=== PATIENT | female | born 1955 | race Caucasian/White ===

== ENCOUNTER 2018-01-27 15:11 | Outpatient (REF) | payer MEDICAID, SELFPAY ==
[2018-01-27 22:37] LABS: ALT 37 U/L (12-78); AST 35 U/L (15-37); Albumin 3.6 g/dL (3.4-5.0); Alkaline Phosphatase 201 U/L (46-116); Anion Gap 9.8 mmol/L (3-11); BUN 43 mg/dL (7-18); Bilirubin, Total 0.3 mg/dL (0.2-1.0); CO2 31.2 mmol/L (21.0-32.0); CREATININE 1.83 mg/dL (0.55-1.02); Calcium 9.2 mg/dL (8.5-10.1); Chloride 100 mmol/L (98-107); Cholesterol 187 mg/dL (50-200); Estimated GFR 28.06 (mL/min/1.73m2); Glucose 85 mg/dL (70-100); HDL Cholesterol 58 mg/dL (40-60); LDL CHOLESTEROL 89 mg/dL (<100); Potassium 3.1 mmol/L (3.5-5.1); Sodium 141 mmol/L (136-145); Total Protein 7.7 g/dL (6.4-8.2); Triglyceride 243 mg/dL (30-150)
== END 2018-01-27 15:31 ==
LOC: NCHCN 15:11
PROVIDERS: PCP Registered Nurse; Visit Provider Registered Nurse
DX: Z13.220 Encounter for screening for lipoid disorders (principal); Z13.228 Encounter for screening for other metabolic disorders; Z51.81 Encounter for therapeutic drug level monitoring; Z79.899 Other long term (current) drug therapy
CPT/HCPCS: 80053; 80061; 83721

== ENCOUNTER 2018-02-10 12:14 | Outpatient (REF) | payer MEDICAID, SELFPAY ==
[2018-02-10 21:48] LABS: BUN 17 mg/dL (7-18); CREATININE 1.54 mg/dL (0.55-1.02); Calcium 8.5 mg/dL (8.5-10.1); Chloride 97 mmol/L (98-107); Estimated GFR 34.25 (mL/min/1.73m2); Glucose 81 mg/dL (70-100); Magnesium 1.6 mg/dL (1.8-2.4); Potassium 3.7 mmol/L (3.5-5.1); Sodium 137 mmol/L (136-145)
== END 2018-02-10 12:34 ==
LOC: NCHCN 12:14
PROVIDERS: PCP Registered Nurse; Visit Provider Registered Nurse
DX: E87.6 Hypokalemia (principal); N18.3 Chronic kidney disease, stage 3 (moderate); K50.90 Crohn's disease, unspecified, without complications
CPT/HCPCS: 80048; 83735

== ENCOUNTER 2018-03-12 15:59 | Outpatient (REF) | payer MEDICAID, SELFPAY ==
[2018-03-12 21:58] LABS: BUN 33 mg/dL (7-18); CREATININE 3.05 mg/dL (0.55-1.02); Calcium 9.3 mg/dL (8.5-10.1); Chloride 98 mmol/L (98-107); Estimated GFR 15.56 (mL/min/1.73m2); Glucose 95 mg/dL (70-100); Magnesium 1.7 mg/dL (1.8-2.4); Potassium 3.6 mmol/L (3.5-5.1); Sodium 139 mmol/L (136-145)
== END 2018-03-12 16:19 ==
LOC: NCHCN 15:59
PROVIDERS: PCP Registered Nurse; Visit Provider Registered Nurse
DX: N18.3 Chronic kidney disease, stage 3 (moderate) (principal); E83.42 Hypomagnesemia; R30.0 Dysuria; R31.9 Hematuria, unspecified
CPT/HCPCS: 80048; 83735; 87086

== ENCOUNTER 2018-03-19 17:59 | Outpatient (REF) | payer MEDICAID, SELFPAY ==
[2018-03-19 20:37] LABS: Abs Immature Grans 0.01 k/cumm (0.0-0.09); Absolute Basophil Count 0.01 k/cumm (0.0-0.2); Absolute Eosinophil Count 0.21 k/cumm (0.0-0.7); Absolute Lymphocyte Count 1.83 k/cumm (1.2-3.4); Absolute Monocyte Count 0.54 k/cumm (0.11-0.7); Absolute Neutrophil Count 2.89 k/cumm (1.2-6.7); Basophils % 0.2; Eosinophils % 3.8; HCT 35.9 % (36.0-46.0); HGB 11.8 g/dL (12.0-15.5); Immature Grans % 0.2; Lymphocytes % 33.3; Mean Corp. HGB Concentration 32.9 g/dL (32.0-36.0); Mean Corpuscular Hemoglobin 33.1 pg (27.0-33.0); Mean Corpuscular Volume 100.6 fL (80-95); Mean Platelet Volume 9.8 fL (8.0-11.0); Monocytes % 9.8; Neutrophils % 52.7; Platelet Count 274 x1000/uL (130-400); RBC 3.57 m/cumm (4.00-5.20); RBC Distribution Width 13.1 % (11.7-14.6); White Blood Cell Count 5.49 k/cumm (4.4-10.8)
[2018-03-19 20:46] LABS: Anion Gap 7.2 mmol/L (3-11); BUN 39 mg/dL (7-18); CO2 33.8 mmol/L (21.0-32.0); Calcium 8.8 mg/dL (8.5-10.1); Chloride 98 mmol/L (98-107); Glucose 93 mg/dL (70-100); Potassium 3.9 mmol/L (3.5-5.1); Sodium 139 mmol/L (136-145)
== END 2018-03-19 18:19 ==
LOC: NCHCN 17:59
PROVIDERS: PCP Registered Nurse; Visit Provider Registered Nurse
DX: N18.3 Chronic kidney disease, stage 3 (moderate) (principal)
CPT/HCPCS: 80048; 85025

== ENCOUNTER 2018-08-18 08:08 | Outpatient (REF) | payer MEDICAID, SELFPAY ==
[2018-08-18 22:15] LABS: HCT 41.3 % (36.0-46.0); HGB 13.2 g/dL (12.0-15.5); Mean Corpuscular Hemoglobin 32.5 pg (27.0-33.0); Mean Corpuscular Volume 101.7 fL (80-95); Platelet Count 429 x1000/uL (130-400); RBC 4.06 m/cumm (4.00-5.20); RBC Distribution Width 13.7 % (11.7-14.6); White Blood Cell Count 6.95 k/cumm (4.4-10.8)
[2018-08-18 22:29] LABS: Iron 34 ug/dL (50-175); Total Iron Binding Capacity 412 ug/dL (250-450); Transferrin Sat 8 % (15-50)
[2018-08-18 22:56] LABS: ALT 57 U/L (12-78); AST 65 U/L (15-37); Albumin 3.5 g/dL (3.4-5.0); Alkaline Phosphatase 340 U/L (46-116); Anion Gap 11.2 mmol/L (3-11); BUN 20 mg/dL (7-18); Bilirubin, Total 0.2 mg/dL (0.2-1.0); CO2 25.8 mmol/L (21.0-32.0); CREATININE 1.39 mg/dL (0.55-1.02); Chloride 99 mmol/L (98-107); Estimated GFR 38.55 (mL/min/1.73m2); Glucose 81 mg/dL (70-100); Magnesium 1.6 mg/dL (1.8-2.4); Potassium 4.1 mmol/L (3.5-5.1); Sodium 136 mmol/L (136-145); TSH 1.86 uIU/mL (0.358-3.74); Total Protein 8.1 g/dL (6.4-8.2)
[2018-08-18 23:07] LABS: Calcium 8.9 mg/dL (8.5-10.1)
[2018-08-18 23:14] LABS: Vitamin B12 > 2000 pg/mL (193-986)
[2018-08-19 06:25] LABS: Vitamin D 25 Total 8.8 ng/ml (30-100)
== END 2018-08-18 08:28 ==
LOC: NCHCN 08:08
PROVIDERS: PCP Registered Nurse; Visit Provider Family Medicine
DX: D51.9 Vitamin B12 deficiency anemia, unspecified (principal); N18.4 Chronic kidney disease, stage 4 (severe); K50.90 Crohn's disease, unspecified, without complications; Z93.2 Ileostomy status
CPT/HCPCS: 80053; 82306; 85027; 82607; 83540; 83550; 83735; 84443

== ENCOUNTER 2018-08-23 22:23 | Outpatient (REF) | payer MEDICAID, SELFPAY ==
[2018-08-23 21:57] LABS: Bilirubin Small (Negative); Blood Large (Negative); Clarity Clear; Glucose Negative (Negative); Ketones Trace mg/dL (Negative); Leukocyte Esterase Small (Negative); Nitrite Negative (Negative); Specific Gravity 1.025 (1.005-1.025); Urobilinogen 0.2 EU/dL (Up TO 0.2)
[2018-08-23 22:11] LABS: C & S Indicated? No; Crystals Many Amorphous HPF (Negative)
== END 2018-08-23 22:43 ==
LOC: NCHCN 22:23
PROVIDERS: PCP Registered Nurse; Visit Provider Family Medicine
DX: R35.0 Frequency of micturition (principal); Z13.220 Encounter for screening for lipoid disorders
CPT/HCPCS: 81003; 81015

== ENCOUNTER 2018-09-21 17:37 | Outpatient (REF) | payer MEDICAID, SELFPAY | END 2018-09-21 17:57 | LOC: NCHCN 17:37 | PROVIDERS: PCP Registered Nurse; Visit Provider Family Medicine | DX: R35.0 Frequency of micturition (principal) | CPT/HCPCS: 87086 ==

== ENCOUNTER 2018-11-03 15:35 | Outpatient (REF) | payer MEDICAID, SELFPAY ==
[2018-11-03 21:35] LABS: Anion Gap 13.3 mmol/L (3-11); BUN 35 mg/dL (7-18); CO2 19.7 mmol/L (21.0-32.0); CREATININE 1.46 mg/dL (0.55-1.02); Calcium 9.1 mg/dL (8.5-10.1); Chloride 108 mmol/L (98-107); Glucose 84 mg/dL (70-100); Potassium 4.6 mmol/L (3.5-5.1); Sodium 141 mmol/L (136-145)
[2018-11-04 05:50] LABS: Vitamin D 25 Total 28.4 ng/ml (30-100)
== END 2018-11-03 15:55 ==
LOC: NCHCN 15:35
PROVIDERS: PCP Registered Nurse; Visit Provider Family Medicine
DX: D51.9 Vitamin B12 deficiency anemia, unspecified (principal); D75.89 Other specified diseases of blood and blood-forming organs; E55.9 Vitamin D deficiency, unspecified; N36.0 Urethral fistula; M79.7 Fibromyalgia
CPT/HCPCS: 80048; 82306

== ENCOUNTER 2019-02-03 12:14 | Outpatient (REF) | payer MEDICAID, SELFPAY ==
[2019-02-03 23:01] LABS: Anion Gap 8.4 mmol/L (3-11); BUN 20 mg/dL (7-18); CO2 34.6 mmol/L (21.0-32.0); CREATININE 1.59 mg/dL (0.55-1.02); Calcium 9.5 mg/dL (8.5-10.1); Chloride 94 mmol/L (98-107); Glucose 102 mg/dL (74-106); Potassium 3.3 mmol/L (3.5-5.1); Sodium 137 mmol/L (136-145)
== END 2019-02-03 12:34 ==
LOC: NCHCN 12:14
PROVIDERS: PCP Registered Nurse; Visit Provider Family Medicine
DX: N18.3 Chronic kidney disease, stage 3 (moderate) (principal)
CPT/HCPCS: 80048

== ENCOUNTER 2019-03-04 10:11 | Outpatient (REF) | payer MEDICAID, SELFPAY ==
[2019-03-04 20:44] LABS: Abs Immature Grans 0.01 k/cumm (0.0-0.09); Absolute Basophil Count 0.02 k/cumm (0.0-0.2); Absolute Lymphocyte Count 1.94 k/cumm (1.2-3.4); Absolute Monocyte Count 0.54 k/cumm (0.11-0.7); Absolute Neutrophil Count 2.97 k/cumm (1.2-6.7); Basophils % 0.4; Eosinophils % 3.5; HCT 38.2 % (36.0-46.0); HGB 12.1 g/dL (12.0-15.5); Immature Grans % 0.2; Lymphocytes % 34.2; Mean Corp. HGB Concentration 31.7 g/dL (32.0-36.0); Mean Corpuscular Hemoglobin 31.7 pg (27.0-33.0); Mean Platelet Volume 10.1 fL (8.0-11.0); Monocytes % 9.5; Neutrophils % 52.2; Platelet Count 387 x1000/uL (130-400); RBC 3.82 m/cumm (4.00-5.20); RBC Distribution Width 13.8 % (11.7-14.6); White Blood Cell Count 5.68 k/cumm (4.4-10.8)
[2019-03-04 21:18] LABS: Anion Gap 7.8 mmol/L (3-11); BUN 22 mg/dL (7-18); CO2 34.2 mmol/L (21.0-32.0); CREATININE 1.94 mg/dL (0.55-1.02); Calcium 9.3 mg/dL (8.5-10.1); Chloride 100 mmol/L (98-107); Estimated GFR 26.15 (mL/min/1.73m2); Glucose 126 mg/dL (74-106); Magnesium 1.8 mg/dL (1.8-2.4); Potassium 3.9 mmol/L (3.5-5.1); Sodium 142 mmol/L (136-145); Vitamin B12 1010 pg/mL (193-986)
[2019-03-04 21:21] LABS: Folate > 20.0 ng/mL (8.6-20.0)
== END 2019-03-04 10:31 ==
LOC: NCHCN 10:11
PROVIDERS: PCP Registered Nurse; Visit Provider Nurse Practitioner Family
DX: E55.9 Vitamin D deficiency, unspecified (principal); N18.4 Chronic kidney disease, stage 4 (severe); N25.89 Other disorders resulting from impaired renal tubular function; E61.2 Magnesium deficiency; D51.9 Vitamin B12 deficiency anemia, unspecified; D52.9 Folate deficiency anemia, unspecified
CPT/HCPCS: 80048; 82306; 82607; 82746; 83735; 85025

== ENCOUNTER 2019-04-13 16:49 | Outpatient (REF) | payer MEDICAID, SELFPAY ==
[2019-04-13 21:39] LABS: Anion Gap 7.7 mmol/L (3-11); BUN 23 mg/dL (7-18); CO2 28.3 mmol/L (21.0-32.0); CREATININE 1.36 mg/dL (0.55-1.02); Calcium 8.8 mg/dL (8.5-10.1); Chloride 105 mmol/L (98-107); Glucose 88 mg/dL (74-106); Potassium 4.5 mmol/L (3.5-5.1); Sodium 141 mmol/L (136-145)
[2019-04-13 21:42] LABS: HCT 37.8 % (36.0-46.0); HGB 12.2 g/dL (12.0-15.5); Mean Corp. HGB Concentration 32.3 g/dL (32.0-36.0); Mean Corpuscular Hemoglobin 32.7 pg (27.0-33.0); Mean Corpuscular Volume 101.3 fL (80-95); Mean Platelet Volume 10.1 fL (8.0-11.0); Platelet Count 315 x1000/uL (130-400); RBC 3.73 m/cumm (4.00-5.20); RBC Distribution Width 14.3 % (11.7-14.6); White Blood Cell Count 6.14 k/cumm (4.4-10.8)
== END 2019-04-13 17:09 ==
LOC: NCHCN 16:49
PROVIDERS: PCP Registered Nurse; Visit Provider Registered Nurse
DX: N18.4 Chronic kidney disease, stage 4 (severe) (principal)
CPT/HCPCS: 80048; 85027

== ENCOUNTER 2019-05-16 13:11 | Outpatient (REF) | payer MEDICAID, SELFPAY ==
[2019-05-16 21:31] LABS: BUN 31 mg/dL (7-18); CREATININE 2.02 mg/dL (0.55-1.02); Calcium 9.5 mg/dL (8.5-10.1); Chloride 104 mmol/L (98-107); Estimated GFR 24.96 (mL/min/1.73m2); Glucose 118 mg/dL (74-106); Potassium 4.9 mmol/L (3.5-5.1); Sodium 143 mmol/L (136-145)
== END 2019-05-16 13:31 ==
LOC: NCHCN 13:11
PROVIDERS: PCP Registered Nurse; Visit Provider Registered Nurse
DX: N18.3 Chronic kidney disease, stage 3 (moderate) (principal); R82.90 Unspecified abnormal findings in urine
CPT/HCPCS: 80048; 87086

== ENCOUNTER 2019-05-18 14:43 | Outpatient (REF) | payer MEDICAID, SELFPAY ==
[2019-05-18 22:26] LABS: Anion Gap 7.9 mmol/L (3-11); BUN 33 mg/dL (7-18); CO2 32.1 mmol/L (21.0-32.0); CREATININE 1.86 mg/dL (0.55-1.02); Calcium 9.4 mg/dL (8.5-10.1); Chloride 100 mmol/L (98-107); Estimated GFR 27.45 (mL/min/1.73m2); Glucose 102 mg/dL (74-106); Potassium 3.8 mmol/L (3.5-5.1); Sodium 140 mmol/L (136-145)
[2019-05-18 22:37] LABS: Bacteria Few HPF (Negative); Crystals Moderate Amorphous HPF (Negative); Epithelial Cells Moderate HPF (Negative); Other Cells Negative (Negative); RBC 0-2 HPF (0-2)
[2019-05-18 22:38] LABS: C & S Indicated? C&S Done As Ordered; Mucus Negative (Negative)
[2019-05-19 15:19] LABS: Vitamin D 25 Total 38.3 ng/ml (30-100)
== END 2019-05-18 15:03 ==
LOC: NCHCN 14:43
PROVIDERS: PCP Registered Nurse; Visit Provider Registered Nurse
DX: N18.4 Chronic kidney disease, stage 4 (severe) (principal); R82.90 Unspecified abnormal findings in urine; E55.9 Vitamin D deficiency, unspecified; R63.6 Underweight; Z91.89 Other specified personal risk factors, not elsewhere classified
CPT/HCPCS: 80048; 82306; 81015; 87086

== ENCOUNTER 2019-06-16 10:55 | Outpatient (REF) | payer MEDICAID, SELFPAY ==
[2019-06-16 20:21] LABS: BUN 22 mg/dL (7-18); CREATININE 2.07 mg/dL (0.55-1.02); Calcium 9.5 mg/dL (8.5-10.1); Chloride 98 mmol/L (98-107); Estimated GFR 24.26 (mL/min/1.73m2); Glucose 94 mg/dL (74-106); Potassium 4.2 mmol/L (3.5-5.1); Sodium 139 mmol/L (136-145)
== END 2019-06-16 11:15 ==
LOC: NCHCN 10:55
PROVIDERS: PCP Registered Nurse; Visit Provider Registered Nurse
DX: N18.4 Chronic kidney disease, stage 4 (severe) (principal)
CPT/HCPCS: 80048; 87077; 87086

== ENCOUNTER 2019-07-05 09:34 | Outpatient (REF) | payer MEDICAID, SELFPAY | END 2019-07-05 09:54 | LOC: NCHCN 09:34 | PROVIDERS: PCP Registered Nurse; Visit Provider Registered Nurse | DX: N18.4 Chronic kidney disease, stage 4 (severe) (principal); R31.9 Hematuria, unspecified | CPT/HCPCS: 87077; 87086 ==

== ENCOUNTER 2019-08-01 12:48 | Outpatient (REF) | payer MEDICAID, SELFPAY ==
[2019-08-01 21:20] LABS: HCT 37.5 % (36.0-46.0); Mean Corpuscular Hemoglobin 31.7 pg (27.0-33.0); Mean Corpuscular Volume 98.9 fL (80-95); Platelet Count 368 x1000/uL (130-400); RBC 3.79 m/cumm (4.00-5.20); RBC Distribution Width 14.3 % (11.7-14.6); White Blood Cell Count 6.05 k/cumm (4.4-10.8)
[2019-08-01 21:31] LABS: Anion Gap 9.8 mmol/L (3-11); BUN 19 mg/dL (7-18); CO2 30.2 mmol/L (21.0-32.0); CREATININE 1.46 mg/dL (0.55-1.02); Calcium 9.2 mg/dL (8.5-10.1); Chloride 96 mmol/L (98-107); Glucose 126 mg/dL (74-106); Potassium 3.5 mmol/L (3.5-5.1); Sodium 136 mmol/L (136-145)
== END 2019-08-01 13:08 ==
LOC: NCHCN 12:48
PROVIDERS: PCP Registered Nurse; Visit Provider Registered Nurse
DX: D52.9 Folate deficiency anemia, unspecified (principal); R63.4 Abnormal weight loss
CPT/HCPCS: 80048; 85027

== ENCOUNTER 2019-09-15 22:57 | Outpatient (REF) | payer MEDICAID, SELFPAY ==
[2019-09-15 20:43] LABS: C & S Indicated? C&S Done As Ordered
[2019-09-15 20:48] LABS: WBC >50 HPF (0-5)
[2019-09-15 20:49] LABS: Bacteria Many HPF (Negative); Crystals Negative HPF (Negative); Mucus Negative (Negative)
[2019-09-15 20:56] LABS: Anion Gap 7.5 mmol/L (3-11); BUN 24 mg/dL (7-18); CO2 30.5 mmol/L (21.0-32.0); CREATININE 2.22 mg/dL (0.55-1.02); Calcium 9.3 mg/dL (8.5-10.1); Chloride 100 mmol/L (98-107); Estimated GFR 22.38 (mL/min/1.73m2); Glucose 111 mg/dL (74-106); Potassium 3.9 mmol/L (3.5-5.1); Sodium 138 mmol/L (136-145)
== END 2019-09-15 23:17 ==
LOC: NCHCN 22:57
PROVIDERS: PCP Registered Nurse; Visit Provider Registered Nurse
DX: R63.4 Abnormal weight loss (principal); N18.4 Chronic kidney disease, stage 4 (severe)
CPT/HCPCS: 80048; 81015; 87086

== ENCOUNTER 2019-10-07 11:40 | Outpatient (REF) | payer MEDICAID, SELFPAY ==
[2019-10-07 21:10] LABS: Anion Gap 9.7 mmol/L (3-11); BUN 14 mg/dL (7-18); CO2 23.3 mmol/L (21.0-32.0); CREATININE 1.45 mg/dL (0.55-1.02); Calcium 9.1 mg/dL (8.5-10.1); Chloride 106 mmol/L (98-107); Estimated GFR 36.47 (mL/min/1.73m2); Glucose 106 mg/dL (74-106); Magnesium 1.7 mg/dL (1.8-2.4); PHOSPHORUS 3.3 mg/dL (2.6-4.7); Potassium 5.2 mmol/L (3.5-5.1); Sodium 139 mmol/L (136-145)
[2019-10-07 21:33] LABS: Hemoglobin A1C 5.8 % (3.8-5.6)
== END 2019-10-07 12:00 ==
LOC: NCHCN 11:40
PROVIDERS: PCP Registered Nurse; Visit Provider Registered Nurse
DX: Z87.442 Personal history of urinary calculi (principal); R63.4 Abnormal weight loss; D51.9 Vitamin B12 deficiency anemia, unspecified
CPT/HCPCS: 80048; 83036; 83735; 84100

== ENCOUNTER 2019-11-22 21:32 | Outpatient (REF) | payer MEDICAID, SELFPAY ==
[2019-11-22 21:24] LABS: Bacteria Few HPF (Negative); C & S Indicated? C&S Done As Ordered; Epithelial Cells Many HPF (Negative)
== END 2019-11-22 21:52 ==
LOC: NCHCN 21:32
PROVIDERS: PCP Registered Nurse; Visit Provider Nurse Practitioner Family
DX: R30.0 Dysuria (principal); N89.8 Other specified noninflammatory disorders of vagina; L29.8 Other pruritus
CPT/HCPCS: 81015; 87086

== ENCOUNTER 2020-03-07 16:43 | Outpatient (REF) | payer MEDICAID, SELFPAY ==
[2020-03-07 22:01] LABS: Anion Gap 7.5 mmol/L (3-11); BUN 17 mg/dL (7-18); CO2 29.5 mmol/L (21.0-32.0); CREATININE 1.71 mg/dL (0.55-1.02); Calcium 9.4 mg/dL (8.5-10.1); Chloride 102 mmol/L (98-107); Estimated GFR 30.15 (mL/min/1.73m2); Glucose 96 mg/dL (74-106); Potassium 4.1 mmol/L (3.5-5.1); Sodium 139 mmol/L (136-145)
[2020-03-08 23:59] LABS: COVID-19 RT-PCR UVMMC Result Negative (Negative)
== END 2020-03-07 17:03 ==
LOC: NCHCN 16:43
PROVIDERS: PCP Registered Nurse; Visit Provider Nurse Practitioner Community Health
DX: N18.4 Chronic kidney disease, stage 4 (severe) (principal); R06.02 Shortness of breath
CPT/HCPCS: 80048; U0003

== ENCOUNTER 2020-03-30 13:54 | Outpatient (REF) | payer MEDICAID, SELFPAY ==
[2020-03-30 14:08] LABS: HCT 38.8 % (36.0-46.0); HGB 12.7 g/dL (11.2-15.7); MCH 31.9 pg (27.0-33.0); MCHC 32.7 % (32.0-36.0); MCV 97.5 fL (80-95); MPV 10.5 fL (8.0-11.0); Platelet Count 314 10^3/uL (130-400); RBC 3.98 10^6/uL (3.93-5.22); RDW 12.3 % (11.7-14.6); RDW-SD 44.6 fL; WBC 8.85 10^3/uL (4.4-10.8)
[2020-03-30 14:10] LABS: Anion Gap 6.8 mmol/L (3-11); BUN 35 mg/dL (7-18); CO2 32.2 mmol/L (21.0-32.0); CREATININE 2.04 mg/dL (0.55-1.02); Calcium 9.3 mg/dL (8.5-10.1); Chloride 93 mmol/L (98-107); Glucose 118 mg/dL (74-106); Potassium 3.5 mmol/L (3.5-5.1); Sodium 132 mmol/L (136-145)
== END 2020-03-30 14:14 ==
LOC: NCHCN 13:54
PROVIDERS: PCP Registered Nurse; Visit Provider Registered Nurse
DX: N18.4 Chronic kidney disease, stage 4 (severe) (principal); E86.0 Dehydration; R79.89 Other specified abnormal findings of blood chemistry
CPT/HCPCS: 80048; 85027; 83735

== ENCOUNTER 2020-04-25 11:44 | Outpatient (REF) | payer MEDICAID, SELFPAY ==
[2020-04-25 22:20] LABS: Anion Gap 8.6 mmol/L (3-11); BUN 14 mg/dL (7-18); CO2 30.4 mmol/L (21.0-32.0); CREATININE 1.7 mg/dL (0.55-1.02); Calcium 9.4 mg/dL (8.5-10.1); Chloride 104 mmol/L (98-107); Estimated GFR 30.36 (mL/min/1.73m2); Glucose 91 mg/dL (74-106); Sodium 143 mmol/L (136-145)
[2020-04-25 22:29] LABS: Hemoglobin A1C 5.9 % (<5.7)
[2020-04-27 13:17] LABS: COVID-19 RT-PCR UVMMC Result Negative (Negative)
== END 2020-04-25 11:45 | disposition home or self-care (01) ==
LOC: NCHCN 11:44
PROVIDERS: PCP Registered Nurse; Visit Provider Registered Nurse
DX: J06.9 Acute upper respiratory infection, unspecified (principal)
CPT/HCPCS: 80048; U0003; 83036

== ENCOUNTER 2020-07-18 13:08 | Outpatient (REF) | payer MEDICAID, SELFPAY ==
[2020-07-18 21:56] LABS: Bilirubin Negative (Negative); Blood Negative (Negative); Clarity Clear (Clear); Glucose Negative (Negative); Ketones Negative (Negative); Leukocyte Esterase Negative (Negative); Nitrite Negative (Negative); Specific Gravity 1.015 (1.005-1.025); Urobilinogen 0.2 EU/dL (Up TO 0.2)
== END 2020-07-18 13:09 | disposition home or self-care (01) ==
LOC: NCHCN 13:08
PROVIDERS: PCP Registered Nurse; Visit Provider Registered Nurse
DX: R39.89 Other symptoms and signs involving the genitourinary system (principal)
CPT/HCPCS: 81003; 87086

== ENCOUNTER 2020-08-01 22:10 | Outpatient (REF) | payer MEDICAID, SELFPAY ==
[2020-08-01 22:10] LABS: Anion Gap 11.2 mmol/L (3-11); BUN 20 mg/dL (7-18); CO2 30.8 mmol/L (21.0-32.0); CREATININE 1.6 mg/dL (0.55-1.02); Calcium 9.7 mg/dL (8.5-10.1); Chloride 102 mmol/L (98-107); Estimated GFR 32.55 (mL/min/1.73m2); Glucose 84 mg/dL (74-106); Potassium 4.3 mmol/L (3.5-5.1); Sodium 144 mmol/L (136-145)
== END 2020-08-01 22:11 | disposition home or self-care (01) ==
LOC: NCHCN 22:10
PROVIDERS: PCP Registered Nurse; Visit Provider Registered Nurse
DX: N18.4 Chronic kidney disease, stage 4 (severe) (principal); E61.2 Magnesium deficiency
CPT/HCPCS: 80048; 83735

== ENCOUNTER 2020-09-14 11:04 | Outpatient (REF) | payer MEDICAID, SELFPAY ==
[2020-09-14 14:51] LABS: Anion Gap 6.4 mmol/L (3-11); BUN 15 mg/dL (7-18); CO2 30.6 mmol/L (21.0-32.0); CREATININE 1.4 mg/dL (0.55-1.02); Chloride 105 mmol/L (98-107); Estimated GFR 37.98 (mL/min/1.73m2); Glucose 88 mg/dL (74-106); Potassium 5.5 mmol/L (3.5-5.1); Sodium 142 mmol/L (136-145)
[2020-09-14 15:09] LABS: PROTEIN 35.2 mg/dL
[2020-09-14 15:10] LABS: COMMENT (LAB VIEW ONLY) 160.07 mg/dL; Prot/Crea Ur Ratio 0.21
== END 2020-09-14 11:05 | disposition home or self-care (01) ==
LOC: NCHCN 11:04
PROVIDERS: Internal Medicine Nephrology; PCP Registered Nurse; Visit Provider Registered Nurse
DX: K50.90 Crohn's disease, unspecified, without complications (principal); N18.4 Chronic kidney disease, stage 4 (severe)
CPT/HCPCS: 80048; 82565; 84156

== ENCOUNTER 2020-09-27 13:09 | Outpatient (REF) | payer MEDICAID, SELFPAY ==
[2020-09-27 14:16] LABS: Anion Gap 8.2 mmol/L (3-11); BUN 26 mg/dL (7-18); CO2 29.8 mmol/L (21.0-32.0); CREATININE 1.8 mg/dL (0.55-1.02); Calcium 8.9 mg/dL (8.5-10.1); Chloride 103 mmol/L (98-107); Estimated GFR 28.33 (mL/min/1.73m2); Glucose 70 mg/dL (74-106); Potassium 4.3 mmol/L (3.5-5.1); Sodium 141 mmol/L (136-145)
== END 2020-09-27 13:10 | disposition home or self-care (01) ==
LOC: NCHCN 13:09
PROVIDERS: PCP Registered Nurse; Visit Provider Registered Nurse
DX: E87.5 Hyperkalemia (principal)
CPT/HCPCS: 80048

== ENCOUNTER 2020-12-12 13:30 | Outpatient (REF) | payer MEDICAID, SELFPAY ==
[2020-12-12 22:05] LABS: HGB 13.1 g/dL (11.2-15.7); MCH 32.4 pg (27.0-33.0); MCHC 31.2 % (32.0-36.0); MPV 9.8 fL (8.0-11.0); Platelet Count 346 10^3/uL (130-400); RBC 4.04 10^6/uL (3.93-5.22); RDW 13.2 % (11.7-14.6); RDW-SD 51.3 fL; WBC 7.51 10^3/uL (4.4-10.8)
[2020-12-12 22:10] LABS: Anion Gap 7.6 mmol/L (3-11); BUN 22 mg/dL (7-18); CO2 30.4 mmol/L (21.0-32.0); CREATININE 1.7 mg/dL (0.55-1.02); Calcium 9.5 mg/dL (8.5-10.1); Chloride 106 mmol/L (98-107); Estimated GFR 30.26 (mL/min/1.73m2); Glucose 120 mg/dL (74-106); Magnesium 2.1 mg/dL (1.8-2.4); Potassium 4.7 mmol/L (3.5-5.1); Sodium 144 mmol/L (136-145)
[2020-12-14 12:03] LABS: COVID-19 RT-PCR UVMMC Result Negative (Negative)
== END 2020-12-12 13:31 | disposition home or self-care (01) ==
LOC: NCHCN 13:30
PROVIDERS: PCP Registered Nurse; Visit Provider Registered Nurse
DX: N18.4 Chronic kidney disease, stage 4 (severe) (principal); Z20.822 Contact with and (suspected) exposure to COVID-19; J06.9 Acute upper respiratory infection, unspecified
CPT/HCPCS: 80048; 85027; U0003; 83735

== ENCOUNTER 2021-04-10 15:18 | Outpatient (REF) | payer MEDICAID, SELFPAY ==
[2021-04-10 14:50] LABS: HCT 38.4 % (36.0-46.0); HGB 12.3 g/dL (11.2-15.7); MCH 32.1 pg (27.0-33.0); MCV 100.3 fL (80-95); MPV 9.9 fL (8.0-11.0); Platelet Count 322 10^3/uL (130-400); RBC 3.83 10^6/uL (3.93-5.22); RDW 13.1 % (11.7-14.6); RDW-SD 48.7 fL; WBC 5.74 10^3/uL (4.4-10.8)
[2021-04-10 15:23] LABS: ALT 26 U/L (14-59); AST 27 U/L (15-37); Albumin 3.5 g/dL (3.4-5.0); Alkaline Phosphatase 170 U/L (46-116); Anion Gap 8.9 mmol/L (3-11); BUN 20 mg/dL (7-18); Bilirubin, Total 0.2 mg/dL (0.2-1.0); CO2 32.1 mmol/L (21.0-32.0); CREATININE 1.7 mg/dL (0.55-1.02); Calcium 8.9 mg/dL (8.5-10.1); Chloride 101 mmol/L (98-107); Estimated GFR 30.26 (mL/min/1.73m2); Glucose 97 mg/dL (74-106); Potassium 3.4 mmol/L (3.5-5.1); Sodium 142 mmol/L (136-145); Total Protein 7.4 g/dL (6.4-8.2)
[2021-04-10 15:27] LABS: Hemoglobin A1C 5.6 % (<5.7)
[2021-04-10 16:24] LABS: COMMENT (LAB VIEW ONLY) 266.22 mg/dL; PROTEIN 28.8 mg/dL
[2021-04-11 13:35] LABS: COVID-19 RT-PCR UVMMC Result Negative (Negative)
== END 2021-04-10 15:19 | disposition home or self-care (01) ==
LOC: NCHCN 15:18
PROVIDERS: PCP Registered Nurse; Visit Provider Registered Nurse
DX: J02.9 Acute pharyngitis, unspecified (principal); N18.4 Chronic kidney disease, stage 4 (severe); R73.03 Prediabetes; R94.5 Abnormal results of liver function studies; Z20.822 Contact with and (suspected) exposure to COVID-19
CPT/HCPCS: 80053; 85027; U0003; 82565; 83036; 84156

== ENCOUNTER 2021-06-13 16:58 | Outpatient (REF) | payer MEDICAID, SELFPAY ==
[2021-06-13 16:18] LABS: Alkaline Phosphatase 166 U/L (46-116); BUN 19 mg/dL (7-18); CREATININE 1.7 mg/dL (0.55-1.02); Calcium 9.2 mg/dL (8.5-10.1); Chloride 102 mmol/L (98-107); Estimated GFR 30.26 (mL/min/1.73m2); Glucose 97 mg/dL (74-106); Potassium 3.7 mmol/L (3.5-5.1); Sodium 140 mmol/L (136-145)
[2021-06-13 16:32] LABS: GGT 92 U/L (5-55)
== END 2021-06-13 16:59 | disposition home or self-care (01) ==
LOC: NCHCN 16:58
PROVIDERS: PCP Registered Nurse; Visit Provider Registered Nurse
DX: R74.8 Abnormal levels of other serum enzymes (principal)
CPT/HCPCS: 80048; 82977; 84075

== ENCOUNTER 2021-08-08 14:26 | Outpatient (REF) | payer MEDICAID, SELFPAY ==
[2021-08-08 21:05] LABS: ALT 36 U/L (14-59); AST 34 U/L (15-37); Albumin 3.7 g/dL (3.4-5.0); Alkaline Phosphatase 195 U/L (46-116); Anion Gap 7.8 mmol/L (3-11); BUN 18 mg/dL (7-18); Bilirubin, Total 0.3 mg/dL (0.2-1.0); CO2 31.2 mmol/L (21.0-32.0); CREATININE 1.6 mg/dL (0.55-1.02); Calcium 9.3 mg/dL (8.5-10.1); Chloride 103 mmol/L (98-107); Estimated GFR 32.45 (mL/min/1.73m2); Glucose 92 mg/dL (74-106); Potassium 4.3 mmol/L (3.5-5.1); Sodium 142 mmol/L (136-145); Total Protein 7.8 g/dL (6.4-8.2)
== END 2021-08-08 14:27 | disposition home or self-care (01) ==
LOC: NCHCN 14:26
PROVIDERS: PCP Registered Nurse; Visit Provider Registered Nurse
DX: N18.4 Chronic kidney disease, stage 4 (severe) (principal); R94.5 Abnormal results of liver function studies
CPT/HCPCS: 80053

== ENCOUNTER 2021-12-05 16:50 | Outpatient (REF) | payer MEDICARE, MEDICAID, SELFPAY ==
[2021-12-05 16:35] LABS: ALT 28 U/L (14-59); AST 26 U/L (15-37); Albumin 3.7 g/dL (3.4-5.0); Alkaline Phosphatase 145 U/L (46-116); Anion Gap 6.2 mmol/L (3-11); BUN 27 mg/dL (7-18); Bilirubin, Total 0.4 mg/dL (0.2-1.0); CO2 32.8 mmol/L (21.0-32.0); CREATININE 1.6 mg/dL (0.55-1.02); Calcium 9.5 mg/dL (8.5-10.1); Calculated LDL 87 mg/dL (<100); Chloride 101 mmol/L (98-107); Cholesterol 188 mg/dL (<200); Estimated GFR 35.57 (mL/min/1.73m2); Glucose 82 mg/dL (74-106); HDL Cholesterol 65 mg/dL (40-60); Magnesium 1.9 mg/dL (1.8-2.4); PHOSPHORUS 3.1 mg/dL (2.6-4.7); Potassium 3.7 mmol/L (3.5-5.1); Sodium 140 mmol/L (136-145); Total Protein 7.8 g/dL (6.4-8.2); Triglyceride 180 mg/dL (<150)
[2021-12-05 17:00] LABS: GGT 88 U/L (5-55)
== END 2021-12-05 16:51 | disposition home or self-care (01) ==
LOC: NCHCN 16:50
PROVIDERS: PCP Registered Nurse; Visit Provider Registered Nurse
DX: R94.5 Abnormal results of liver function studies (principal); R63.4 Abnormal weight loss; N18.4 Chronic kidney disease, stage 4 (severe); Z13.220 Encounter for screening for lipoid disorders
CPT/HCPCS: 80053; 80061; 82977; 83735; 84100

== ENCOUNTER 2022-03-05 12:14 | Outpatient (REF) | payer MEDICARE, MEDICAID, SELFPAY ==
[2022-03-05 21:27] LABS: ALT 38 U/L (14-59); AST 40 U/L (15-37); Albumin 3.7 g/dL (3.4-5.0); Alkaline Phosphatase 197 U/L (46-116); BUN 21 mg/dL (7-18); Bilirubin, Total 0.3 mg/dL (0.2-1.0); CREATININE 1.9 mg/dL (0.55-1.02); Calcium 9.5 mg/dL (8.5-10.1); Chloride 103 mmol/L (98-107); Estimated GFR 28.94 (mL/min/1.73m2); Glucose 94 mg/dL (74-106); Magnesium 1.9 mg/dL (1.8-2.4); Potassium 4.9 mmol/L (3.5-5.1); Sodium 137 mmol/L (136-145)
[2022-03-05 21:40] LABS: Hemoglobin A1C 5.6 % (<5.7)
== END 2022-03-05 12:15 | disposition home or self-care (01) ==
LOC: NCHCN 12:14
PROVIDERS: PCP Registered Nurse; Visit Provider Registered Nurse
DX: R73.03 Prediabetes (principal); N18.4 Chronic kidney disease, stage 4 (severe); E61.2 Magnesium deficiency
CPT/HCPCS: 80053; 83036; 83735

== ENCOUNTER 2022-03-27 12:59 | Outpatient (REF) | payer MEDICARE, MEDICAID, SELFPAY ==
[2022-03-27 15:24] LABS: ALT 26 U/L (14-59); AST 34 U/L (15-37); Albumin 3.8 g/dL (3.4-5.0); Alkaline Phosphatase 158 U/L (46-116); Bilirubin, Direct 0.1 mg/dL (0.0-0.2); Bilirubin, Total 0.3 mg/dL (0.2-1.0); Total Protein 8.3 g/dL (6.4-8.2)
[2022-03-27 16:27] LABS: Iron 59 ug/dL (50-170); Total Iron Binding Capacity 333 ug/dL (250-450)
[2022-03-28 09:18] LABS: HBs Antibody, Quant <3.1 mIU/mL (See Note); Hepatitis B Surface Ab Negative (See Note)
[2022-03-28 09:27] LABS: Hepatitis B Surface Ag Negative (Negative)
[2022-03-28 10:00] LABS: Hepatitis C Ab w Rflx HCV PCR Negative (Negative)
[2022-03-28 10:03] LABS: Hep B Core Antibody Negative (Negative)
== END 2022-03-27 13:00 | disposition home or self-care (01) ==
LOC: NCHCN 12:59
PROVIDERS: PCP Registered Nurse; Visit Provider Registered Nurse
DX: R74.8 Abnormal levels of other serum enzymes (principal); R94.5 Abnormal results of liver function studies; D51.9 Vitamin B12 deficiency anemia, unspecified
CPT/HCPCS: 80076; 86704; 86706; 86803; 87340; 83540; 83550

== ENCOUNTER 2022-04-25 15:00 | Outpatient (REF) | payer MEDICARE, MEDICAID, SELFPAY | END 2022-04-25 15:01 | disposition home or self-care (01) | LOC: NCHCN 15:00 | PROVIDERS: PCP Registered Nurse; Visit Provider Family Medicine | DX: R39.9 Unspecified symptoms and signs involving the genitourinary system (principal) | CPT/HCPCS: 87077; 87086; 87186 ==

== ENCOUNTER 2022-05-09 13:12 | Outpatient (REF) | payer MEDICARE, MEDICAID, SELFPAY | END 2022-05-09 13:13 | disposition home or self-care (01) | LOC: NCHCN 13:12 | PROVIDERS: PCP Registered Nurse; Visit Provider Family Medicine | DX: R39.89 Other symptoms and signs involving the genitourinary system (principal); R82.998 Other abnormal findings in urine | CPT/HCPCS: 87077; 87086; 87186 ==

== ENCOUNTER 2022-05-16 18:25 | Outpatient (REF) | payer MEDICARE, MEDICAID, SELFPAY ==
[2022-05-16 15:08] LABS: HCT 41.2 % (36.0-46.0); HGB 13.4 g/dL (11.2-15.7); MCH 32.8 pg (27.0-33.0); MCHC 32.5 % (32.0-36.0); MCV 101 fL (80-95); MPV 10.3 fL (8.0-11.0); Platelet Count 336 10^3/uL (130-400); RBC 4.08 10^6/uL (3.93-5.22); RDW 13.4 % (11.7-14.6); RDW-SD 50.3 fL; WBC 5.57 10^3/uL (4.4-10.8)
[2022-05-16 15:50] LABS: ALT 37 U/L (14-59); AST 41 U/L (15-37); Albumin 3.7 g/dL (3.4-5.0); Alkaline Phosphatase 135 U/L (46-116); Anion Gap 8.9 mmol/L (3-11); BUN 34 mg/dL (7-18); Bilirubin, Total 0.2 mg/dL (0.2-1.0); CO2 26.1 mmol/L (21.0-32.0); Calcium 9.7 mg/dL (8.5-10.1); Chloride 106 mmol/L (98-107); Estimated GFR 27.21 (mL/min/1.73m2); Glucose 77 mg/dL (74-106); Potassium 4.1 mmol/L (3.5-5.1); Sodium 141 mmol/L (136-145); TSH (W/Ref FT4) 0.44 uIU/mL (0.36-3.74); Total Protein 7.9 g/dL (6.4-8.2)
[2022-05-16 16:17] LABS: COMMENT (LAB VIEW ONLY) 84.03 mg/dL; Microalb ug/mg Crea 18.1 ug/mg Cr
[2022-05-16 16:52] LABS: Vitamin D 25 Total 32.1 ng/mL (30-100)
[2022-05-16 16:55] LABS: Vitamin B12 759 pg/mL (193-986)
[2022-05-19 11:16] LABS: Hep A Total Ab w Rflx IgM Negative (Negative)
== END 2022-05-16 18:26 | disposition home or self-care (01) ==
LOC: NCHCN 18:25
PROVIDERS: PCP Registered Nurse; Visit Provider Family Medicine
DX: D75.89 Other specified diseases of blood and blood-forming organs (principal); N18.4 Chronic kidney disease, stage 4 (severe); R63.4 Abnormal weight loss; E46 Unspecified protein-calorie malnutrition; D51.9 Vitamin B12 deficiency anemia, unspecified; E55.9 Vitamin D deficiency, unspecified; Z13.89 Encounter for screening for other disorder
CPT/HCPCS: 80053; 82306; 85027; 86709; 82043; 82570; 82607; 84443

== ENCOUNTER 2022-06-13 16:40 | Outpatient (REF) | payer MEDICARE, MEDICAID, SELFPAY | END 2022-06-13 16:41 | disposition home or self-care (01) | LOC: NCHCN 16:40 | PROVIDERS: PCP Registered Nurse; Visit Provider Family Medicine | DX: R39.89 Other symptoms and signs involving the genitourinary system (principal) | CPT/HCPCS: 87086 ==

== ENCOUNTER 2022-06-20 16:00 | Outpatient (REF) | payer OTHER, MEDICAID, SELFPAY ==
[2022-06-23 09:12] LABS: Hepatitis B Surface Ab Negative (See Note)
== END 2022-06-20 16:01 | disposition home or self-care (01) ==
LOC: NCHCN 16:00
PROVIDERS: PCP Registered Nurse; Visit Provider Family Medicine
DX: R94.5 Abnormal results of liver function studies (principal); R74.8 Abnormal levels of other serum enzymes
CPT/HCPCS: 86706

== ENCOUNTER 2023-03-12 21:19 | Outpatient (REF) | payer MEDICARE, MEDICAID, SELFPAY ==
--- OUTSIDE RECORDS SUMMARY | 2023-03-12 21:23 | XMS_ITS | CCD ---
Author Name Unknown Address [address] [place] [address] [id number] Organization Unknown Address [address] [place], [place] [id number] Care Team Providers Care Crushed Stone Grader Name Role Phone CARMELLACHILOJOSUE ROBLES Attending Physician [phone] Vital Signs Unknown or Not Available. Allergies Allergy Code Allergy Type Reaction Status No Known Allergies 0 No known allergies Active Procedures Unknown or Not Available. History of Immunizations Immunization Code Date pneumococcal, unspecified formulation 109 01/01/2010 Problems Problem Code Start Date Resolved Date Status Acute injury of kidney [id number] Active Dehydration 39662355 Active Nausea with vomiting 43477170 Acti ve Crohn's disease w/ complication 0044528014241635 Active Nicotine dependence 42520629 Activ e Open wound 205317210 Active Crohns 79308334 Active Fibromyalgia 771905785 Active Pancreatitis 52651284 03/08/2023 Active Results COMPREHENSIVE METABOLIC PANE L (CMP) - Collect Date/Time: 12/05/2022 12:09 Test Name Code Test Result Test Units Test Ref Rang e GLUCOSE 2345-7 99 mg/dL L=70 H=116 BUN 3094-0 30 mg/dL L=6 H=25 CREATININE 2160-0 1.71 mg/dL L=0.51 H=0.95 SODIUM SERUM 2951-2 140 mmol/L L=136 H=145 POTASSIUM SERUM 2823-3 3.6 mmol/L L=3.4 H=5 .2 CHLORIDE SERUM 2075-0 101 mmol/L L=96 H=110 CARBON DIOXIDE (CO2) 2028-9 32 mmol/L L=22 H=34 ANION GAP 23163-9 7.4 mmol/L CALCIUM SERUM 36964-1 9.2 mg/dL L=8.2 H=10. 2 BILIRUBIN TOTAL 1975-2 0.2 mg/dL L=0.0 H=1 .3 ALK. PHOS. 6768-6 120 U/L L=46 H=116 SGOT (AST) 1920-8 26 U/L L=15 H=37 SGPT (ALT) 1742-6 21 U/L L=12 H=78 TOTAL PROTEIN 2885-2 7.5 gm/dL L=6.0 H=8.0 ALBUMIN 1751-7 3.5 gm/dL L=3.4 H=5.0 AGE 67 years eGFR (non-Afr.Amer.) 92376-6 30 mL/min eGFR (Afr-Salvadorean) 59577-1 36 mL/min Active Medications Medication Code Dose Units Frequency Route Modificatio n Start Date/Time Magnesium 500 MG Oral Tablet 919019 0497 MG DAILY ORAL 09/13/19 15:02 Prescription Detail TAKE 1000 MG ORAL DAILY Vitamin D2 2000 IU Oral Tablet 4075937211 1 1 TABLET WEEKLY ORAL 09/12/2018 15:02 Prescription Detail TAKE 1 TABLET ORAL WEEKLY Potassium Chloride 20MEQ Oral Tablet, Extended Release 4057780 20 MEQ TWICE A DAY ORAL 06/05/2018 08:40 Prescription Detail TAKE 20 MEQ ORAL TWICE A DAY Cyanocobalamin 1000MCG/1ML Injection Solution 230678 1 MILLILITERS MONTHLY INTRAMUSCU LAR 03/21/2018 17:50 Prescription Detail INJECT 1 MILLILITERS INTRAMUSCULAR MONTH LY Estradiol 0.5MG Oral Tablet 224362 0.5 MILLIGRAMS DAILY ORAL 019 17:50 Prescription Detail TAKE 0.5 MILLIGRAMS ORAL DAILY Metoprolol Succinate 25MG Oral Tablet, Extended Release 706560 1 TABLET DAILY ORAL 08/2018 17:50 Prescription Detail TAKE 1 TABLET ORAL DAILY Sodium Bicarbonate 650MG Oral Tablet 147542 6793 MILLIGRAMS THREE TIMES A DAY ORAL 03/21/2018 17:50 Prescription Detail TAKE 1950 MILLIGRAMS ORAL THREE TIMES A DAY Cyclobenzaprine 10MG Oral Tablet 300681 10 MILLIGRAMS THREE TIMES A DAY ORAL 03/04/2017 13:16 Prescription Detail TAKE 10 MILLIGRAMS ORAL THREE TIMES A DA Y Cymbalta 60MG Oral Capsule, Delayed Release 892443 60 MILLIGRAMS DAILY ORAL 13:16 Prescription Detail TAKE 60 MILLIGRAMS ORAL DAILY Magnesium 500 MG Oral Tablet 011008 500 MILLIGRAMS DAILY ORAL 017 13:16 Prescription Detail TAKE 500 MILLIGRAMS ORAL DAILY Medications Administered During Visit Unknown or Not Available. Encounters Encounter Diagnosis Diagnosis Code Start Date Acute kidney failure, unspecified N179 12/05/2022 Social History Smoking Status Code Start Date End Date Current every day smoker [id number] Patient Decision Aids Unknown or Not Available. Discharge Instructions You were admitted to [facility] on 12/05/2022 12:01 with a principal diagnosis of Acute kidney failure, unspecified You had the following tests done:COMPREHENSIVE METABOLIC PANEL (CMP) You were discharged from [facility] on 12/05/2022 12:02 Should you have any questions prior to discharge, please contact a member of your healthcare team. If you have left the hospital and have any questions, please contact your primary care physician. Chief Complaint and Reason For Visit Unknown or Not Available. Function Status Unknown or Not Available. Plan of Care Unknown or Not Available. Referral/Transition of Care Unknown or Not Available.
--- OUTSIDE RECORDS SUMMARY | 2023-03-12 21:23 | XMS_ITS | CCD ---
Author Name Unknown Address [address] [place] [address] [id number] Organization Unknown Address [address] [place], [place] [id number] Care Team Providers Care Fire Watchman Name Role Phone CARMELLACHILOJOSUE ROBLES Attending Physician [phone] Vital Signs Unknown or Not Available. Allergies Allergy Code Allergy Type Reaction Status No Known Allergies 0 No known allergies Active Procedures Unknown or Not Available. History of Immunizations Immunization Code Date pneumococcal, unspecified formulation 109 01/01/2010 Problems Problem Code Start Date Resolved Date Status Acute injury of kidney 22682347334864070 Active Dehydration 72234193 Active Nausea with vomiting 50066568 Acti ve Crohn's disease w/ complication 4158122569776097 Active Nicotine dependence 62173148 Activ e Open wound 718184510 Active Crohns 89411199 Active Fibromyalgia 581687716 Active Pancreatitis 26539556 03/08/2023 Active Results COMPREHENSIVE METABOLIC PANE L (CMP) - Collect Date/Time: 10/02/2022 10:16 Test Name Code Test Result Test Units Test Ref Rang e GLUCOSE 2345-7 85 mg/dL L=70 H=116 BUN 3094-0 25 mg/dL L=6 H=25 CREATININE 2160-0 1.70 mg/dL L=0.51 H=0.95 SODIUM SERUM 2951-2 138 mmol/L L=136 H=145 POTASSIUM SERUM 2823-3 4.0 mmol/L L=3.4 H=5 .2 CHLORIDE SERUM 2075-0 98 mmol/L L=96 H=110 CARBON DIOXIDE (CO2) 2028-9 37 mmol/L L=22 H=34 ANION GAP 11446-5 3.3 mmol/L CALCIUM SERUM 40502-3 9.4 mg/dL L=8.2 H=10. 2 BILIRUBIN TOTAL 1975-2 0.3 mg/dL L=0.0 H=1 .3 ALK. PHOS. 6768-6 148 U/L L=46 H=116 SGOT (AST) 1920-8 29 U/L L=15 H=37 SGPT (ALT) 1742-6 31 U/L L=12 H=78 TOTAL PROTEIN 2885-2 7.8 gm/dL L=6.0 H=8.0 ALBUMIN 1751-7 3.5 gm/dL L=3.4 H=5.0 AGE 67 years eGFR (non-Afr.Amer.) 50263-0 30 mL/min eGFR (Afr-Spanish) 58091-8 36 mL/min Active Medications Medication Code Dose Units Frequency Route Modificatio n Start Date/Time Magnesium 500 MG Oral Tablet 134185 8725 MG DAILY ORAL 09/13/19 19 15:02 Prescription Detail TAKE 1000 MG ORAL DAILY Vitamin D2 2000 IU Oral Tablet 2199177121 1 1 TABLET WEEKLY ORAL 09/12/2018 15:02 Prescription Detail TAKE 1 TABLET ORAL WEEKLY Potassium Chloride 20MEQ Oral Tablet, Extended Release 5093334 20 MEQ TWICE A DAY ORAL 06/05/2018 08:40 Prescription Detail TAKE 20 MEQ ORAL TWICE A DAY Cyanocobalamin 1000MCG/1ML Injection Solution 305907 1 MILLILITERS MONTHLY INTRAMUSCU LAR 03/21/2018 17:50 Prescription Detail INJECT 1 MILLILITERS INTRAMUSCULAR MONTH LY Estradiol 0.5MG Oral Tablet 215658 0.5 MILLIGRAMS DAILY ORAL 019 17:50 Prescription Detail TAKE 0.5 MILLIGRAMS ORAL DAILY Metoprolol Succinate 25MG Oral Tablet, Extended Release 214790 1 TABLET DAILY ORAL 08/2018 17:50 Prescription Detail TAKE 1 TABLET ORAL DAILY Sodium Bicarbonate 650MG Oral Tablet 165198 5316 MILLIGRAMS THREE TIMES A DAY ORAL 03/21/2018 17:50 Prescription Detail TAKE 1950 MILLIGRAMS ORAL THREE TIMES A DAY Cyclobenzaprine 10MG Oral Tablet 697828 10 MILLIGRAMS THREE TIMES A DAY ORAL 03/04/2017 13:16 Prescription Detail TAKE 10 MILLIGRAMS ORAL THREE TIMES A DA Y Cymbalta 60MG Oral Capsule, Delayed Release 750575 60 MILLIGRAMS DAILY ORAL 13:16 Prescription Detail TAKE 60 MILLIGRAMS ORAL DAILY Magnesium 500 MG Oral Tablet 265351 500 MILLIGRAMS DAILY ORAL 017 13:16 Prescription Detail TAKE 500 MILLIGRAMS ORAL DAILY Medications Administered During Visit Unknown or Not Available. Encounters Encounter Diagnosis Diagnosis Code Start Date Acute renal failure syndrome [id number] Social History Smoking Status Code Start Date End Date Current every day smoker [id number] Patient Decision Aids Unknown or Not Available. Discharge Instructions You were admitted to [facility] on 10/02/2022 09:45 with a principal diagnosis of Acute kidney failure, unspecified You had the following tests done:COMPREHENSIVE METABOLIC PANEL (CMP) You were discharged from [facility] on 10/02/2022 09:46 Should you have any questions prior to [...]
--- OUTSIDE RECORDS SUMMARY | 2023-03-12 21:24 | XMS_ITS | CCD ---
Author Name Unknown Address [address] [place] [address] [phone] Organization Unknown Address [address] [place], [place] [phone] Care Team Providers Care Flight/Transport Nurse Name Role Phone CARMELLACHILOJOSUE ROBLES Attending Physician [phone] Vital Signs Unknown or Not Available. Allergies Allergy Code Allergy Type Reaction Status No Known Allergies 0 No known allergies Active Procedures Unknown or Not Available. History of Immunizations Immunization Code Date pneumococcal, unspecified formulation 109 01/01/2010 Problems Problem Code Start Date Resolved Date Status Acute injury of kidney 79727954042689975 Active Dehydration 61450143 Active Nausea with vomiting 52489349 Acti ve Crohn's disease w/ complication 1833439913805879 Active Nicotine dependence 24941059 Activ e Open wound 527097963 Active Crohns 30508308 Active Fibromyalgia 281191263 Active Pancreatitis 78081518 03/08/2023 Active Results COMPREHENSIVE METABOLIC PANE L (CMP) - Collect Date/Time: 07/08/2022 14:51 Test Name Code Test Result Test Units Test Ref Rang e GLUCOSE 2345-7 94 mg/dL L=70 H=116 BUN 3094-0 33 mg/dL L=6 H=25 CREATININE 2160-0 1.78 mg/dL L=0.51 H=0.95 SODIUM SERUM 2951-2 142 mmol/L L=136 H=145 POTASSIUM SERUM 2823-3 4.1 mmol/L L=3.4 H=5 .2 CHLORIDE SERUM 2075-0 105 mmol/L L=96 H=110 CARBON DIOXIDE (CO2) 2028-9 29 mmol/L L=22 H=34 ANION GAP 32201-7 8.0 mmol/L CALCIUM SERUM 39705-9 9.0 mg/dL L=8.2 H=10. 2 BILIRUBIN TOTAL 1975-2 0.2 mg/dL L=0.0 H=1 .3 ALK. PHOS. 6768-6 144 U/L L=46 H=116 SGOT (AST) 1920-8 31 U/L L=15 H=37 SGPT (ALT) 1742-6 40 U/L L=12 H=78 TOTAL PROTEIN 2885-2 7.3 gm/dL L=6.0 H=8.0 ALBUMIN 1751-7 3.5 gm/dL L=3.4 H=5.0 AGE 66 years eGFR (non-Afr.Amer.) 77853-1 29 mL/min eGFR (Afr-[place] Citizen) 02740-2 35 mL/min Active Medications Medication Code Dose Units Frequency Route Modificatio n Start Date/Time Magnesium 500 MG Oral Tablet 316602 9040 MG DAILY ORAL 09/13/19 15:02 Prescription Detail TAKE 1000 MG ORAL DAILY Vitamin D2 2000 IU Oral Tablet 4498534471 1 1 TABLET WEEKLY ORAL 09/12/2018 15:02 Prescription Detail TAKE 1 TABLET ORAL WEEKLY Potassium Chloride 20MEQ Oral Tablet, Extended Release 8612201 20 MEQ TWICE A DAY ORAL 06/05/2018 08:40 Prescription Detail TAKE 20 MEQ ORAL TWICE A DAY Cyanocobalamin 1000MCG/1ML Injection Solution 260873 1 MILLILITERS MONTHLY INTRAMUSCU LAR 03/21/2018 17:50 Prescription Detail INJECT 1 MILLILITERS INTRAMUSCULAR MONTH LY Estradiol 0.5MG Oral Tablet 702779 0.5 MILLIGRAMS DAILY ORAL 019 17:50 Prescription Detail TAKE 0.5 MILLIGRAMS ORAL DAILY Metoprolol Succinate 25MG Oral Tablet, Extended Release 130755 1 TABLET DAILY ORAL 08/2018 17:50 Prescription Detail TAKE 1 TABLET ORAL DAILY Sodium Bicarbonate 650MG Oral Tablet 912011 8653 MILLIGRAMS THREE TIMES A DAY ORAL 03/21/2018 17:50 Prescription Detail TAKE 1950 MILLIGRAMS ORAL THREE TIMES A DAY Cyclobenzaprine 10MG Oral Tablet 082277 10 MILLIGRAMS THREE TIMES A DAY ORAL 03/04/2017 13:16 Prescription Detail TAKE 10 MILLIGRAMS ORAL THREE TIMES A DA Y Cymbalta 60MG Oral Capsule, Delayed Release 366791 60 MILLIGRAMS DAILY ORAL 13:16 Prescription Detail TAKE 60 MILLIGRAMS ORAL DAILY Magnesium 500 MG Oral Tablet 119494 500 MILLIGRAMS DAILY ORAL 017 13:16 Prescription Detail TAKE 500 MILLIGRAMS ORAL DAILY Medications Administered During Visit Unknown or Not Available. Encounters Encounter Diagnosis Diagnosis Code Start Date Acute kidney failure, unspecified N179 07/08/2022 Social History Smoking Status Code Start Date End Date Current every day smoker 102870338 Patient Decision Aids Unknown or Not Available. Discharge Instructions You were admitted to [facility] on 07/08/2022 14:47 with a principal diagnosis of Acute kidney failure, unspecified You had the following tests done:COMPREHENSIVE METABOLIC PANEL (CMP) You were discharged from [facility] on 07/08/2022 14:47 Should you have any questions prior to [...]
--- OUTSIDE RECORDS SUMMARY | 2023-03-12 21:24 | XMS_ITS | CCD ---
Author Name Unknown Address [address] [place] [address] [phone] Organization Unknown Address [address] [place] [address] [phone] Care Team Providers Care Mds Nurse Name Role Phone SONDRA LALA Attending Physician [phone] Vital Signs Unknown or Not Available. Allergies Allergy Code Allergy Type Reaction Status No Known Allergies 0 No known allergies Active Procedures Unknown or Not Available. History of Immunizations Immunization Code Date pneumococcal, unspecified formulation 109 01/01/2010 Problems Problem Code Start Date Resolved Date Status Acute injury of kidney 53834452217021515 Active Dehydration 58874325 Active Nausea with vomiting 93534964 Acti ve Crohn's disease w/ complication 4610724798900250 Active Nicotine dependence 63965449 Activ e Open wound 189961124 Active Crohns 59649829 Active Fibromyalgia 268241531 Active Pancreatitis 36805671 03/08/2023 Active Results Unknown or Not Available. Active Medications Medication Code Dose Units Frequency Route Modificatio n Start Date/Time Magnesium 500 MG Oral Tablet 862822 7512 MG DAILY ORAL 09/13/19 19 15:02 Prescription Detail TAKE 1000 MG ORAL DAILY Vitamin D2 2000 IU Oral Tablet 2613143961 1 1 TABLET WEEKLY ORAL 09/12/2018 15:02 Prescription Detail TAKE 1 TABLET ORAL WEEKLY Potassium Chloride 20MEQ Oral Tablet, Extended Release 1869156 20 MEQ TWICE A DAY ORAL 06/05/2018 08:40 Prescription Detail TAKE 20 MEQ ORAL TWICE A DAY Cyanocobalamin 1000MCG/1ML Injection Solution 907300 1 MILLILITERS MONTHLY INTRAMUSCU LAR 03/21/2018 17:50 Prescription Detail INJECT 1 MILLILITERS INTRAMUSCULAR MONTH LY Estradiol 0.5MG Oral Tablet 260683 0.5 MILLIGRAMS DAILY ORAL 019 17:50 Prescription Detail TAKE 0.5 MILLIGRAMS ORAL DAILY Metoprolol Succinate 25MG Oral Tablet, Extended Release 778147 1 TABLET DAILY ORAL 08/2018 17:50 Prescription Detail TAKE 1 TABLET ORAL DAILY Sodium Bicarbonate 650MG Oral Tablet 978523 8017 MILLIGRAMS THREE TIMES A DAY ORAL 03/21/2018 17:50 Prescription Detail TAKE 1950 MILLIGRAMS ORAL THREE TIMES A DAY Cyclobenzaprine 10MG Oral Tablet 898759 10 MILLIGRAMS THREE TIMES A DAY ORAL 03/04/2017 13:16 Prescription Detail TAKE 10 MILLIGRAMS ORAL THREE TIMES A DA Y Cymbalta 60MG Oral Capsule, Delayed Release 265993 60 MILLIGRAMS DAILY ORAL 13:16 Prescription Detail TAKE 60 MILLIGRAMS ORAL DAILY Magnesium 500 MG Oral Tablet 212977 500 MILLIGRAMS DAILY ORAL 017 13:16 Prescription Detail TAKE 500 MILLIGRAMS ORAL DAILY Medications Administered During Visit Unknown or Not Available. Encounters Encounter Diagnosis Diagnosis Code Start Date Other specified disorders of kidney and ureter N 2889 04/17/2022 Social History Smoking Status Code Start Date End Date Current every day smoker 613270728 Patient Decision Aids Unknown or Not Available. Discharge Instructions You were admitted to [facility] on 04/17/2022 12:48 with a principal diagnosis of Other specified disorders of kidney and ureter You were discharged from [facility] on 04/17/2022 12:48 Should you have any questions prior to discharge, please contact a member of your healthcare team. If you have left the hospital and have any questions, please contact your primary care physician. Chief Complaint and Reason For Visit Chief Complaint Date of Onset NASAL SINUS CONGESTION Function Status Unknown or Not Available. Plan of Care Unknown or Not Available. Referral/Transition of Care Unknown or Not Available.
--- OUTSIDE RECORDS SUMMARY | 2023-03-12 21:24 | XMS_ITS | CCD ---
Author Name Unknown Address [address] [place] [address] [phone] Organization Unknown Address [address] [place] [address] [phone] Care Team Providers Care Site Acquisition Manager Name Role Phone SONDRA LALA Attending Physician [phone] Vital Signs Unknown or Not Available. Allergies Allergy Code Allergy Type Reaction Status No Known Allergies 0 No known allergies Active Procedures Unknown or Not Available. History of Immunizations Immunization Code Date pneumococcal, unspecified formulation 109 01/01/2010 Problems Problem Code Start Date Resolved Date Status Acute injury of kidney 14600578175012425 Active Dehydration 53720399 Active Nausea with vomiting 72832016 Acti ve Crohn's disease w/ complication 9640375987409111 Active Nicotine dependence 40852632 Activ e Open wound 867843658 Active Crohns 72092751 Active Fibromyalgia 419301743 Active Pancreatitis 31481406 03/08/2023 Active Results Unknown or Not Available. Active Medications Medication Code Dose Units Frequency Route Modificatio n Start Date/Time Magnesium 500 MG Oral Tablet 840266 6201 MG DAILY ORAL 09/13/19 19 15:02 Prescription Detail TAKE 1000 MG ORAL DAILY Vitamin D2 2000 IU Oral Tablet 3222123748 1 1 TABLET WEEKLY ORAL 09/12/2018 15:02 Prescription Detail TAKE 1 TABLET ORAL WEEKLY Potassium Chloride 20MEQ Oral Tablet, Extended Release 4869484 20 MEQ TWICE A DAY ORAL 06/05/2018 08:40 Prescription Detail TAKE 20 MEQ ORAL TWICE A DAY Cyanocobalamin 1000MCG/1ML Injection Solution 622112 1 MILLILITERS MONTHLY INTRAMUSCU LAR 03/21/2018 17:50 Prescription Detail INJECT 1 MILLILITERS INTRAMUSCULAR MONTH LY Estradiol 0.5MG Oral Tablet 605376 0.5 MILLIGRAMS DAILY ORAL 019 17:50 Prescription Detail TAKE 0.5 MILLIGRAMS ORAL DAILY Metoprolol Succinate 25MG Oral Tablet, Extended Release 874959 1 TABLET DAILY ORAL 08/2018 17:50 Prescription Detail TAKE 1 TABLET ORAL DAILY Sodium Bicarbonate 650MG Oral Tablet 087455 8085 MILLIGRAMS THREE TIMES A DAY ORAL 03/21/2018 17:50 Prescription Detail TAKE 1950 MILLIGRAMS ORAL THREE TIMES A DAY Cyclobenzaprine 10MG Oral Tablet 176811 10 MILLIGRAMS THREE TIMES A DAY ORAL 03/04/2017 13:16 Prescription Detail TAKE 10 MILLIGRAMS ORAL THREE TIMES A DA Y Cymbalta 60MG Oral Capsule, Delayed Release 123718 60 MILLIGRAMS DAILY ORAL 13:16 Prescription Detail TAKE 60 MILLIGRAMS ORAL DAILY Magnesium 500 MG Oral Tablet 015644 500 MILLIGRAMS DAILY ORAL 017 13:16 Prescription Detail TAKE 500 MILLIGRAMS ORAL DAILY Medications Administered During Visit Unknown or Not Available. Encounters Encounter Diagnosis Diagnosis Code Start Date Canceled operative procedure 89649352 01/2022 Social History Smoking Status Code Start Date End Date Current every day smoker 094331624 Patient Decision Aids Unknown or Not Available. Discharge Instructions You were admitted to [facility] on 10/24/2021 04:32 with a principal diagnosis of Procedure and treatment not carried out, unspecified reason You were discharged from [facility] on 10/24/2021 04:32 Should you have any questions prior to discharge, please contact a member of your healthcare team. If you have left the hospital and have any questions, please contact your primary care physician. Chief Complaint and Reason For Visit Chief Complaint Date of Onset TOBACCO ABUSE LDCT MM SCR Function Status Unknown or Not Available. Plan of Care Unknown or Not Available. Referral/Transition of Care Unknown or Not Available.
--- OUTSIDE RECORDS SUMMARY | 2023-03-12 21:24 | XMS_ITS | CCD ---
Author Name Unknown Address [address] [place] [address] [phone] Organization Unknown Address [address] [place] [address] [phone] Care Team Providers Care Spice Miller Name Role Phone SONDRA LALA Attending Physician [phone] Vital Signs Unknown or Not Available. Allergies Allergy Code Allergy Type Reaction Status No Known Allergies 0 No known allergies Active Procedures Unknown or Not Available. History of Immunizations Immunization Code Date pneumococcal, unspecified formulation 109 01/01/2010 Problems Problem Code Start Date Resolved Date Status Acute injury of kidney 43616338858886033 Active Dehydration 51979287 Active Nausea with vomiting 71620227 Acti ve Crohn's disease w/ complication 6219126519546850 Active Nicotine dependence 64315945 Activ e Open wound 358081020 Active Crohns 66035661 Active Fibromyalgia 909735783 Active Pancreatitis 56549654 03/08/2023 Active Results Unknown or Not Available. Active Medications Medication Code Dose Units Frequency Route Modificatio n Start Date/Time Magnesium 500 MG Oral Tablet 679796 5933 MG DAILY ORAL 09/13/19 19 15:02 Prescription Detail TAKE 1000 MG ORAL DAILY Vitamin D2 2000 IU Oral Tablet 6045048153 1 1 TABLET WEEKLY ORAL 09/12/2018 15:02 Prescription Detail TAKE 1 TABLET ORAL WEEKLY Potassium Chloride 20MEQ Oral Tablet, Extended Release 0692532 20 MEQ TWICE A DAY ORAL 06/05/2018 08:40 Prescription Detail TAKE 20 MEQ ORAL TWICE A DAY Cyanocobalamin 1000MCG/1ML Injection Solution 026100 1 MILLILITERS MONTHLY INTRAMUSCU LAR 03/21/2018 17:50 Prescription Detail INJECT 1 MILLILITERS INTRAMUSCULAR MONTH LY Estradiol 0.5MG Oral Tablet 920245 0.5 MILLIGRAMS DAILY ORAL 019 17:50 Prescription Detail TAKE 0.5 MILLIGRAMS ORAL DAILY Metoprolol Succinate 25MG Oral Tablet, Extended Release 585933 1 TABLET DAILY ORAL 08/2018 17:50 Prescription Detail TAKE 1 TABLET ORAL DAILY Sodium Bicarbonate 650MG Oral Tablet 382772 3695 MILLIGRAMS THREE TIMES A DAY ORAL 03/21/2018 17:50 Prescription Detail TAKE 1950 MILLIGRAMS ORAL THREE TIMES A DAY Cyclobenzaprine 10MG Oral Tablet 346692 10 MILLIGRAMS THREE TIMES A DAY ORAL 03/04/2017 13:16 Prescription Detail TAKE 10 MILLIGRAMS ORAL THREE TIMES A DA Y Cymbalta 60MG Oral Capsule, Delayed Release 970864 60 MILLIGRAMS DAILY ORAL 13:16 Prescription Detail TAKE 60 MILLIGRAMS ORAL DAILY Magnesium 500 MG Oral Tablet 819846 500 MILLIGRAMS DAILY ORAL 017 13:16 Prescription Detail TAKE 500 MILLIGRAMS ORAL DAILY Medications Administered During Visit Unknown or Not Available. Encounters Encounter Diagnosis Diagnosis Code Start Date Other specified cough R058 04/01/2022 Social History Smoking Status Code Start Date End Date Current every day smoker 449607397 Patient Decision Aids Unknown or Not Available. Discharge Instructions You were admitted to [facility] on 04/01/2022 14:49 with a principal diagnosis of Other specified cough You were discharged from [facility] on 04/01/2022 14:49 Should you have any questions prior to [...]
--- OUTSIDE RECORDS SUMMARY | 2023-03-12 21:24 | XMS_ITS | CCD ---
Author Name Unknown Address [address] [place] [address] [id number] Organization Unknown Address [address] [place] [address] [phone] Care Team Providers Care Turf Farm Worker Name Role Phone SONDRA LALA Attending Physician [phone] Vital Signs Unknown or Not Available. Allergies Allergy Code Allergy Type Reaction Status No Known Allergies 0 No known allergies Active Procedures Unknown or Not Available. History of Immunizations Immunization Code Date pneumococcal, unspecified formulation 109 01/01/2010 Problems Problem Code Start Date Resolved Date Status Acute injury of kidney 89252609496711893 Active Dehydration 51052454 Active Nausea with vomiting 35338035 Acti ve Crohn's disease w/ complication 8905622008032134 Active Nicotine dependence 29591649 Activ e Open wound 501415927 Active Crohns 59728042 Active Fibromyalgia 858337353 Active Pancreatitis 00279636 03/08/2023 Active Results Unknown or Not Available. Active Medications Medication Code Dose Units Frequency Route Modificatio n Start Date/Time Magnesium 500 MG Oral Tablet 134597 7209 MG DAILY ORAL 09/13/19 19 15:02 Prescription Detail TAKE 1000 MG ORAL DAILY Vitamin D2 2000 IU Oral Tablet 9498497455 1 1 TABLET WEEKLY ORAL 09/12/2018 15:02 Prescription Detail TAKE 1 TABLET ORAL WEEKLY Potassium Chloride 20MEQ Oral Tablet, Extended Release 2500479 20 MEQ TWICE A DAY ORAL 06/05/2018 08:40 Prescription Detail TAKE 20 MEQ ORAL TWICE A DAY Cyanocobalamin 1000MCG/1ML Injection Solution 179252 1 MILLILITERS MONTHLY INTRAMUSCU LAR 03/21/2018 17:50 Prescription Detail INJECT 1 MILLILITERS INTRAMUSCULAR MONTH LY Estradiol 0.5MG Oral Tablet 145460 0.5 MILLIGRAMS DAILY ORAL 019 17:50 Prescription Detail TAKE 0.5 MILLIGRAMS ORAL DAILY Metoprolol Succinate 25MG Oral Tablet, Extended Release 300914 1 TABLET DAILY ORAL 08/2018 17:50 Prescription Detail TAKE 1 TABLET ORAL DAILY Sodium Bicarbonate 650MG Oral Tablet 339992 2640 MILLIGRAMS THREE TIMES A DAY ORAL 03/21/2018 17:50 Prescription Detail TAKE 1950 MILLIGRAMS ORAL THREE TIMES A DAY Cyclobenzaprine 10MG Oral Tablet 496556 10 MILLIGRAMS THREE TIMES A DAY ORAL 03/04/2017 13:16 Prescription Detail TAKE 10 MILLIGRAMS ORAL THREE TIMES A DA Y Cymbalta 60MG Oral Capsule, Delayed Release 144439 60 MILLIGRAMS DAILY ORAL 13:16 Prescription Detail TAKE 60 MILLIGRAMS ORAL DAILY Magnesium 500 MG Oral Tablet 911259 500 MILLIGRAMS DAILY ORAL 017 13:16 Prescription Detail TAKE 500 MILLIGRAMS ORAL DAILY Medications Administered During Visit Unknown or Not Available. Encounters Encounter Diagnosis Diagnosis Code Start Date Age-related osteoporosis wit hout current pathological fracture M810 12/17/2021 Social History Smoking Status Code Start Date End Date Current every day smoker [id number] Patient Decision Aids Unknown or Not Available. Discharge Instructions You were admitted to [facility] on 12/17/2021 14:50 with a principal diagnosis of Age-related osteoporosis without current pathological fracture You were discharged from [facility] on 12/17/2021 14:50 Should you have any questions prior to discharge, please contact a member of your healthcare team. If you have left the hospital and have any questions, please contact your primary care physician. Chief Complaint and Reason For Visit Chief Complaint Date of Onset OSTEOPENIA Function Status Unknown or Not Available. Plan of Care Unknown or Not Available. Referral/Transition of Care Unknown or Not Available.
--- OUTSIDE RECORDS SUMMARY | 2023-03-12 21:24 | XMS_ITS | CCD ---
Author Name Unknown Address [address] [place] [address] [phone] Organization Unknown Address [address] [place] [address] [phone] Care Team Providers Care Mirror Maker Name Role Phone MAYCO ZANDRA Bridgett Attending Physician [phone] Vital Signs Unknown or Not Available. Allergies Allergy Code Allergy Type Reaction Status No Known Allergies 0 No known allergies Active Procedures Unknown or Not Available. History of Immunizations Immunization Code Date pneumococcal, unspecified formulation 109 01/01/2010 Problems Problem Code Start Date Resolved Date Status Acute injury of kidney [id number] Active Dehydration 00954814 Active Nausea with vomiting 26701004 Acti ve Crohn's disease w/ complication 7547021649692438 Active Nicotine dependence 28101263 Activ e Open wound 203347052 Active Crohns 99687078 Active Fibromyalgia 877675812 Active Pancreatitis 71666949 03/08/2023 Active Results Unknown or Not Available. Active Medications Medication Code Dose Units Frequency Route Modificatio n Start Date/Time Magnesium 500 MG Oral Tablet 856391 1662 MG DAILY ORAL 09/13/19 19 15:02 Prescription Detail TAKE 1000 MG ORAL DAILY Vitamin D2 2000 IU Oral Tablet 4653987982 1 1 TABLET WEEKLY ORAL 09/12/2018 15:02 Prescription Detail TAKE 1 TABLET ORAL WEEKLY Potassium Chloride 20MEQ Oral Tablet, Extended Release 7898396 20 MEQ TWICE A DAY ORAL 06/05/2018 08:40 Prescription Detail TAKE 20 MEQ ORAL TWICE A DAY Cyanocobalamin 1000MCG/1ML Injection Solution 305850 1 MILLILITERS MONTHLY INTRAMUSCU LAR 03/21/2018 17:50 Prescription Detail INJECT 1 MILLILITERS INTRAMUSCULAR MONTH LY Estradiol 0.5MG Oral Tablet 284575 0.5 MILLIGRAMS DAILY ORAL 019 17:50 Prescription Detail TAKE 0.5 MILLIGRAMS ORAL DAILY Metoprolol Succinate 25MG Oral Tablet, Extended Release 323686 1 TABLET DAILY ORAL 08/2018 17:50 Prescription Detail TAKE 1 TABLET ORAL DAILY Sodium Bicarbonate 650MG Oral Tablet 281212 8585 MILLIGRAMS THREE TIMES A DAY ORAL 03/21/2018 17:50 Prescription Detail TAKE 1950 MILLIGRAMS ORAL THREE TIMES A DAY Cyclobenzaprine 10MG Oral Tablet 913329 10 MILLIGRAMS THREE TIMES A DAY ORAL 03/04/2017 13:16 Prescription Detail TAKE 10 MILLIGRAMS ORAL THREE TIMES A DA Y Cymbalta 60MG Oral Capsule, Delayed Release 140528 60 MILLIGRAMS DAILY ORAL 13:16 Prescription Detail TAKE 60 MILLIGRAMS ORAL DAILY Magnesium 500 MG Oral Tablet 919920 500 MILLIGRAMS DAILY ORAL 017 13:16 Prescription Detail TAKE 500 MILLIGRAMS ORAL DAILY Medications Administered During Visit Unknown or Not Available. Encounters Encounter Diagnosis Diagnosis Code Start Date Respiratory symptom [id number] 09/05/2022 Social History Smoking Status Code Start Date End Date Current every day smoker 785818012 Patient Decision Aids Unknown or Not Available. Discharge Instructions You were admitted to [facility] on 09/05/2022 10:45 with a principal diagnosis of Other specified symptoms and signs involving the circulatory and respiratory systems You were discharged from [facility] on 09/05/2022 10:45 Should you have any questions prior to [...]
--- OUTSIDE RECORDS SUMMARY | 2023-03-12 21:25 | XMS_ITS | CCD ---
Author Name Unknown Address [address] [place] [address] [phone] Organization Unknown Address [address] [place] [address] [phone] Care Team Providers Care Technician Name Role Phone SONDRA LALA Attending Physician [phone] Vital Signs Unknown or Not Available. Allergies Allergy Code Allergy Type Reaction Status No Known Allergies 0 No known allergies Active Procedures Unknown or Not Available. History of Immunizations Immunization Code Date pneumococcal, unspecified formulation 109 01/01/2010 Problems Problem Code Start Date Resolved Date Status Acute injury of kidney 59513275225148442 Active Dehydration 18418640 Active Nausea with vomiting 76668708 Acti ve Crohn's disease w/ complication 6321918887510250 Active Nicotine dependence 06643211 Activ e Open wound 845695685 Active Crohns 52374520 Active Fibromyalgia 306722593 Active Pancreatitis 52638292 03/08/2023 Active Results Unknown or Not Available. Active Medications Medication Code Dose Units Frequency Route Modificatio n Start Date/Time Magnesium 500 MG Oral Tablet 446455 9872 MG DAILY ORAL 09/13/19 19 15:02 Prescription Detail TAKE 1000 MG ORAL DAILY Vitamin D2 2000 IU Oral Tablet 6362120849 1 1 TABLET WEEKLY ORAL 09/12/2018 15:02 Prescription Detail TAKE 1 TABLET ORAL WEEKLY Potassium Chloride 20MEQ Oral Tablet, Extended Release 5718377 20 MEQ TWICE A DAY ORAL 06/05/2018 08:40 Prescription Detail TAKE 20 MEQ ORAL TWICE A DAY Cyanocobalamin 1000MCG/1ML Injection Solution 555249 1 MILLILITERS MONTHLY INTRAMUSCU LAR 03/21/2018 17:50 Prescription Detail INJECT 1 MILLILITERS INTRAMUSCULAR MONTH LY Estradiol 0.5MG Oral Tablet 839856 0.5 MILLIGRAMS DAILY ORAL 019 17:50 Prescription Detail TAKE 0.5 MILLIGRAMS ORAL DAILY Metoprolol Succinate 25MG Oral Tablet, Extended Release 276655 1 TABLET DAILY ORAL 08/2018 17:50 Prescription Detail TAKE 1 TABLET ORAL DAILY Sodium Bicarbonate 650MG Oral Tablet 357307 4058 MILLIGRAMS THREE TIMES A DAY ORAL 03/21/2018 17:50 Prescription Detail TAKE 1950 MILLIGRAMS ORAL THREE TIMES A DAY Cyclobenzaprine 10MG Oral Tablet 212673 10 MILLIGRAMS THREE TIMES A DAY ORAL 03/04/2017 13:16 Prescription Detail TAKE 10 MILLIGRAMS ORAL THREE TIMES A DA Y Cymbalta 60MG Oral Capsule, Delayed Release 812054 60 MILLIGRAMS DAILY ORAL 13:16 Prescription Detail TAKE 60 MILLIGRAMS ORAL DAILY Magnesium 500 MG Oral Tablet 351245 500 MILLIGRAMS DAILY ORAL 017 13:16 Prescription Detail TAKE 500 MILLIGRAMS ORAL DAILY Medications Administered During Visit Unknown or Not Available. Encounters Encounter Diagnosis Diagnosis Code Start Date Other specified diseases of gallbladder K828 08/29/2021 Social History Smoking Status Code Start Date End Date Current every day smoker 982124657 Patient Decision Aids Unknown or Not Available. Discharge Instructions You were admitted to [facility] on 08/29/2021 07:48 with a principal diagnosis of Other specified diseases of gallbladder You were discharged from [facility] on 08/29/2021 07:48 Should you have any questions prior to discharge, please contact a member of your healthcare team. If you have left the hospital and have any questions, please contact your primary care physician. Chief Complaint and Reason For Visit Chief Complaint Date of Onset ELEVATED ALKALINE PHOSPHATASE Function Status Unknown or Not Available. Plan of Care Unknown or Not Available. Referral/Transition of Care Unknown or Not Available.
--- OUTSIDE RECORDS SUMMARY | 2023-03-12 21:25 | XMS_ITS | CCD ---
Author Name Unknown Address [address] [place] [address] [phone] Organization Unknown Address [address] [place], [place] [phone] Care Team Providers Care Denture Packer Name Role Phone CARMELLACHILOJOSUE ROBLES Attending Physician [phone] Vital Signs Unknown or Not Available. Allergies Allergy Code Allergy Type Reaction Status No Known Allergies 0 No known allergies Active Procedures Unknown or Not Available. History of Immunizations Immunization Code Date pneumococcal, unspecified formulation 109 01/01/2010 Problems Problem Code Start Date Resolved Date Status Acute injury of kidney 92012635720482294 Active Dehydration 27002809 Active Nausea with vomiting 43104216 Acti ve Crohn's disease w/ complication 9575426948068002 Active Nicotine dependence 32022911 Activ e Open wound 811904036 Active Crohns 51806335 Active Fibromyalgia 528573502 Active Pancreatitis 90507727 03/08/2023 Active Results COMPREHENSIVE METABOLIC PANE L (CMP) - Collect Date/Time: 01/07/2023 09:42 Test Name Code Test Result Test Units Test Ref Rang e GLUCOSE 2345-7 66 mg/dL L=70 H=116 BUN 3094-0 37 mg/dL L=6 H=25 CREATININE 2160-0 1.71 mg/dL L=0.51 H=0.95 SODIUM SERUM 2951-2 141 mmol/L L=136 H=145 POTASSIUM SERUM 2823-3 4.6 mmol/L L=3.4 H=5 .2 CHLORIDE SERUM 2075-0 104 mmol/L L=96 H=110 CARBON DIOXIDE (CO2) 2028-9 30 mmol/L L=22 H=34 ANION GAP 53375-5 7.1 mmol/L CALCIUM SERUM 08094-0 9.5 mg/dL L=8.2 H=10. 2 BILIRUBIN TOTAL 1975-2 0.3 mg/dL L=0.0 H=1 .3 ALK. PHOS. 6768-6 128 U/L L=46 H=116 SGOT (AST) 1920-8 27 U/L L=15 H=37 SGPT (ALT) 1742-6 29 U/L L=12 H=78 TOTAL PROTEIN 2885-2 7.9 gm/dL L=6.0 H=8.0 ALBUMIN 1751-7 3.4 gm/dL L=3.4 H=5.0 AGE 67 years eGFR (non-Afr.Amer.) 03315-8 30 mL/min eGFR (Afr-Mosotho) 30975-6 36 mL/min Active Medications Medication Code Dose Units Frequency Route Modificatio n Start Date/Time Magnesium 500 MG Oral Tablet 189363 8937 MG DAILY ORAL 09/13/19 15:02 Prescription Detail TAKE 1000 MG ORAL DAILY Vitamin D2 2000 IU Oral Tablet 9823288030 1 1 TABLET WEEKLY ORAL 09/12/2018 15:02 Prescription Detail TAKE 1 TABLET ORAL WEEKLY Potassium Chloride 20MEQ Oral Tablet, Extended Release 6934456 20 MEQ TWICE A DAY ORAL 06/05/2018 08:40 Prescription Detail TAKE 20 MEQ ORAL TWICE A DAY Cyanocobalamin 1000MCG/1ML Injection Solution 878645 1 MILLILITERS MONTHLY INTRAMUSCU LAR 03/21/2018 17:50 Prescription Detail INJECT 1 MILLILITERS INTRAMUSCULAR MONTH LY Estradiol 0.5MG Oral Tablet 006951 0.5 MILLIGRAMS DAILY ORAL 019 17:50 Prescription Detail TAKE 0.5 MILLIGRAMS ORAL DAILY Metoprolol Succinate 25MG Oral Tablet, Extended Release 712695 1 TABLET DAILY ORAL 08/2018 17:50 Prescription Detail TAKE 1 TABLET ORAL DAILY Sodium Bicarbonate 650MG Oral Tablet 147570 0017 MILLIGRAMS THREE TIMES A DAY ORAL 03/21/2018 17:50 Prescription Detail TAKE 1950 MILLIGRAMS ORAL THREE TIMES A DAY Cyclobenzaprine 10MG Oral Tablet 663461 10 MILLIGRAMS THREE TIMES A DAY ORAL 03/04/2017 13:16 Prescription Detail TAKE 10 MILLIGRAMS ORAL THREE TIMES A DA Y Cymbalta 60MG Oral Capsule, Delayed Release 523826 60 MILLIGRAMS DAILY ORAL 13:16 Prescription Detail TAKE 60 MILLIGRAMS ORAL DAILY Magnesium 500 MG Oral Tablet 564389 500 MILLIGRAMS DAILY ORAL 017 13:16 Prescription Detail TAKE 500 MILLIGRAMS ORAL DAILY Medications Administered During Visit Unknown or Not Available. Encounters Encounter Diagnosis Diagnosis Code Start Date Acute kidney failure, unspecified N179 01/07/2023 Social History Smoking Status Code Start Date End Date Current every day smoker 132499674 Patient Decision Aids Unknown or Not Available. Discharge Instructions You were admitted to [facility] on 01/07/2023 09:36 with a principal diagnosis of Acute kidney failure, unspecified You had the following tests done:COMPREHENSIVE METABOLIC PANEL (CMP) You were discharged from [facility] on 01/07/2023 09:36 Should you have any questions prior to [...]
--- OUTSIDE RECORDS SUMMARY | 2023-03-12 21:25 | XMS_ITS | CCD ---
Author Name Unknown Address [address] [place] [address] [phone] Organization Unknown Address [address] [place] [address] [phone] Care Team Providers Care Digital Forensic Analyst Name Role Phone HARRY LICONA Attending Physician [phone] HARRY LICONA Rounding (Secondary) Physician [phone] Vital Signs Unknown or Not Available. Allergies Allergy Code Allergy Type Reaction Status No Known Allergies 0 No known allergies Active Procedures Unknown or Not Available. History of Immunizations Immunization Code Date pneumococcal, unspecified formulation 109 01/01/2010 Problems Problem Code Start Date Resolved Date Status Acute injury of kidney 15188042234650107 Active Dehydration 01748447 Active Nausea with vomiting 10083675 Acti ve Crohn's disease w/ complication 7741153466934613 Active Nicotine dependence 75381852 Activ e Open wound 255824318 Active Crohns 51388784 Active Fibromyalgia 137952307 Active Pancreatitis 90562905 03/08/2023 Active Results Unknown or Not Available. Active Medications Medication Code Dose Units Frequency Route Modificatio n Start Date/Time Magnesium 500 MG Oral Tablet 558902 0945 MG DAILY ORAL 09/13/19 19 15:02 Prescription Detail TAKE 1000 MG ORAL DAILY Vitamin D2 2000 IU Oral Tablet 7582230959 1 1 TABLET WEEKLY ORAL 09/12/2018 15:02 Prescription Detail TAKE 1 TABLET ORAL WEEKLY Potassium Chloride 20MEQ Oral Tablet, Extended Release 8711711 20 MEQ TWICE A DAY ORAL 06/05/2018 08:40 Prescription Detail TAKE 20 MEQ ORAL TWICE A DAY Cyanocobalamin 1000MCG/1ML Injection Solution 215078 1 MILLILITERS MONTHLY INTRAMUSCU LAR 03/21/2018 17:50 Prescription Detail INJECT 1 MILLILITERS INTRAMUSCULAR MONTH LY Estradiol 0.5MG Oral Tablet 575941 0.5 MILLIGRAMS DAILY ORAL 019 17:50 Prescription Detail TAKE 0.5 MILLIGRAMS ORAL DAILY Metoprolol Succinate 25MG Oral Tablet, Extended Release 772595 1 TABLET DAILY ORAL 08/2018 17:50 Prescription Detail TAKE 1 TABLET ORAL DAILY Sodium Bicarbonate 650MG Oral Tablet 000009 5438 MILLIGRAMS THREE TIMES A DAY ORAL 03/21/2018 17:50 Prescription Detail TAKE 1950 MILLIGRAMS ORAL THREE TIMES A DAY Cyclobenzaprine 10MG Oral Tablet 532037 10 MILLIGRAMS THREE TIMES A DAY ORAL 03/04/2017 13:16 Prescription Detail TAKE 10 MILLIGRAMS ORAL THREE TIMES A DA Y Cymbalta 60MG Oral Capsule, Delayed Release 684916 60 MILLIGRAMS DAILY ORAL 13:16 Prescription Detail TAKE 60 MILLIGRAMS ORAL DAILY Magnesium 500 MG Oral Tablet 514073 500 MILLIGRAMS DAILY ORAL 017 13:16 Prescription Detail TAKE 500 MILLIGRAMS ORAL DAILY Medications Administered During Visit Unknown or Not Available. Encounters Encounter Diagnosis Diagnosis Code Start Date Hallux rigidus, left foot M2022 2021 Social History Smoking Status Code Start Date End Date Current every day smoker 702928027 Patient Decision Aids Unknown or Not Available. Discharge Instructions You were admitted to [facility] on 11/13/2021 09:28 with a principal diagnosis of Hallux rigidus, left foot You were discharged from [facility] on 11/13/2021 00:00 Should you have any questions prior to [...]
--- OUTSIDE RECORDS SUMMARY | 2023-03-12 21:25 | XMS_ITS | CCD ---
Author Name Unknown Address [address] [place] [address] [phone] Organization Unknown Address [address] [place] [address] [id number] Care Team Providers Care Director Of Pupil Personnel Program Name Role Phone SONRDA LALA Attending Physician [phone] Vital Signs Unknown or Not Available. Allergies Allergy Code Allergy Type Reaction Status No Known Allergies 0 No known allergies Active Procedures Unknown or Not Available. History of Immunizations Immunization Code Date pneumococcal, unspecified formulation 109 01/01/2010 Problems Problem Code Start Date Resolved Date Status Acute injury of kidney 60815809795983458 Active Dehydration 31904718 Active Nausea with vomiting 43909516 Acti ve Crohn's disease w/ complication 0276934245472377 Active Nicotine dependence 00754092 Activ e Open wound 980598346 Active Crohns 02375210 Active Fibromyalgia 434571267 Active Pancreatitis 26805685 03/08/2023 Active Results Unknown or Not Available. Active Medications Medication Code Dose Units Frequency Route Modificatio n Start Date/Time Magnesium 500 MG Oral Tablet 241664 9477 MG DAILY ORAL 09/13/19 19 15:02 Prescription Detail TAKE 1000 MG ORAL DAILY Vitamin D2 2000 IU Oral Tablet 6135123305 1 1 TABLET WEEKLY ORAL 09/12/2018 15:02 Prescription Detail TAKE 1 TABLET ORAL WEEKLY Potassium Chloride 20MEQ Oral Tablet, Extended Release 5075917 20 MEQ TWICE A DAY ORAL 06/05/2018 08:40 Prescription Detail TAKE 20 MEQ ORAL TWICE A DAY Cyanocobalamin 1000MCG/1ML Injection Solution 941454 1 MILLILITERS MONTHLY INTRAMUSCU LAR 03/21/2018 17:50 Prescription Detail INJECT 1 MILLILITERS INTRAMUSCULAR MONTH LY Estradiol 0.5MG Oral Tablet 859812 0.5 MILLIGRAMS DAILY ORAL 019 17:50 Prescription Detail TAKE 0.5 MILLIGRAMS ORAL DAILY Metoprolol Succinate 25MG Oral Tablet, Extended Release 795480 1 TABLET DAILY ORAL 08/2018 17:50 Prescription Detail TAKE 1 TABLET ORAL DAILY Sodium Bicarbonate 650MG Oral Tablet 109111 6365 MILLIGRAMS THREE TIMES A DAY ORAL 03/21/2018 17:50 Prescription Detail TAKE 1950 MILLIGRAMS ORAL THREE TIMES A DAY Cyclobenzaprine 10MG Oral Tablet 267338 10 MILLIGRAMS THREE TIMES A DAY ORAL 03/04/2017 13:16 Prescription Detail TAKE 10 MILLIGRAMS ORAL THREE TIMES A DA Y Cymbalta 60MG Oral Capsule, Delayed Release 991405 60 MILLIGRAMS DAILY ORAL 13:16 Prescription Detail TAKE 60 MILLIGRAMS ORAL DAILY Magnesium 500 MG Oral Tablet 475800 500 MILLIGRAMS DAILY ORAL 017 13:16 Prescription Detail TAKE 500 MILLIGRAMS ORAL DAILY Medications Administered During Visit Unknown or Not Available. Encounters Encounter Diagnosis Diagnosis Code Start Date Encounter for screening mamm ogram for malignant neoplasm of breast Z1231 11/20/2021 Social History Smoking Status Code Start Date End Date Current every day smoker 893845207 Patient Decision Aids Unknown or Not Available. Discharge Instructions You were admitted to [facility] on 11/20/2021 08:57 with a principal diagnosis of Encounter for screening mammogram for malignant neoplasm of breast You were discharged from [facility] on 11/20/2021 08:57 Should you have any questions prior to discharge, please contact a member of your healthcare team. If you have left the hospital and have any questions, please contact your primary care physician. Chief Complaint and Reason For Visit Chief Complaint Date of Onset SCREENING Function Status Unknown or Not Available. Plan of Care Unknown or Not Available. Referral/Transition of Care Unknown or Not Available.
--- OUTSIDE RECORDS SUMMARY | 2023-03-12 21:25 | XMS_ITS | CCD ---
Author Name Unknown Address [address] [place] [address] [phone] Organization Unknown Address [address] [place] [address] [id number] Care Team Providers Care Toxicology Supervisor Name Role Phone HARRY LICONA Attending Physician [phone] HARRY LICONA Rounding (Secondary) Physician [phone] Vital Signs Unknown or Not Available. Allergies Allergy Code Allergy Type Reaction Status No Known Allergies 0 No known allergies Active Procedures Unknown or Not Available. History of Immunizations Immunization Code Date pneumococcal, unspecified formulation 109 01/01/2010 Problems Problem Code Start Date Resolved Date Status Acute injury of kidney 52701820238177935 Active Dehydration 78215538 Active Nausea with vomiting 02979464 Acti ve Crohn's disease w/ complication 4463813653804321 Active Nicotine dependence 15370226 Activ e Open wound 203751029 Active Crohns 86451047 Active Fibromyalgia 668967194 Active Pancreatitis 18535399 03/08/2023 Active Results Unknown or Not Available. Active Medications Medication Code Dose Units Frequency Route Modificatio n Start Date/Time Magnesium 500 MG Oral Tablet 795267 8968 MG DAILY ORAL 09/13/19 19 15:02 Prescription Detail TAKE 1000 MG ORAL DAILY Vitamin D2 2000 IU Oral Tablet 5478279515 1 1 TABLET WEEKLY ORAL 09/12/2018 15:02 Prescription Detail TAKE 1 TABLET ORAL WEEKLY Potassium Chloride 20MEQ Oral Tablet, Extended Release 0748522 20 MEQ TWICE A DAY ORAL 06/05/2018 08:40 Prescription Detail TAKE 20 MEQ ORAL TWICE A DAY Cyanocobalamin 1000MCG/1ML Injection Solution 665279 1 MILLILITERS MONTHLY INTRAMUSCU LAR 03/21/2018 17:50 Prescription Detail INJECT 1 MILLILITERS INTRAMUSCULAR MONTH LY Estradiol 0.5MG Oral Tablet 137509 0.5 MILLIGRAMS DAILY ORAL 019 17:50 Prescription Detail TAKE 0.5 MILLIGRAMS ORAL DAILY Metoprolol Succinate 25MG Oral Tablet, Extended Release 698632 1 TABLET DAILY ORAL 08/2018 17:50 Prescription Detail TAKE 1 TABLET ORAL DAILY Sodium Bicarbonate 650MG Oral Tablet 308555 8112 MILLIGRAMS THREE TIMES A DAY ORAL 03/21/2018 17:50 Prescription Detail TAKE 1950 MILLIGRAMS ORAL THREE TIMES A DAY Cyclobenzaprine 10MG Oral Tablet 488653 10 MILLIGRAMS THREE TIMES A DAY ORAL 03/04/2017 13:16 Prescription Detail TAKE 10 MILLIGRAMS ORAL THREE TIMES A DA Y Cymbalta 60MG Oral Capsule, Delayed Release 765000 60 MILLIGRAMS DAILY ORAL 13:16 Prescription Detail TAKE 60 MILLIGRAMS ORAL DAILY Magnesium 500 MG Oral Tablet 779918 500 MILLIGRAMS DAILY ORAL 017 13:16 Prescription Detail TAKE 500 MILLIGRAMS ORAL DAILY Medications Administered During Visit Unknown or Not Available. Encounters Encounter Diagnosis Diagnosis Code Start Date Arthralgia of the ankle and/or foot [id number] 10/03/2021 Social History Smoking Status Code Start Date End Date Current every day smoker 919226128 Patient Decision Aids Unknown or Not Available. Discharge Instructions You were admitted to [facility] on 10/03/2021 12:55 with a principal diagnosis of Pain in left ankle and joints of left foot You were discharged from [facility] on 10/03/2021 00:00 Should you have any questions prior [...]
--- OUTSIDE RECORDS SUMMARY | 2023-03-12 21:25 | XMS_ITS | CCD ---
Author Name Unknown Address [address] [place] [address] [phone] Organization Unknown Address [address] [place] [address] [phone] Care Team Providers Care Adult Remedial Education Instructor Name Role Phone KARINE BECERRA Attending Physician [phone] KARINE BECERRA Er Physician [phone] VIC [place] Registered Nurse [phone] Vital Signs Vital Sign Value Unit Date/Time Recent/Initial ? BMI (Body Mass Index) 15.55 kg/m^2 03/08/2023 11: 58 Initial VS Weight Measured 77 lbs 03/08/2023 11:58 Ini tial VS Height 59 in 03/08/2023 11:58 Initial VS BSA (Body Surface Area) 1.21 m^2 03/08/2023 1 1:58 Initial VS BP Systolic 123 mmHg 03/08/2023 11:58 Initial VS BP Diastolic 86 mmHg 03/08/2023 11:58 Initia l VS Respiratory Rate 14 bpm 03/08/2023 11:58 In itial VS Heart Rate 100 bpm 03/08/2023 11:58 Initial VS O2 % BldC Oximetry 100 % 03/08/2023 11:58 Initial VS Body Temperature 36 degrees 03/08/2023 11:58 In itial VS BP Systolic 142 mmHg 03/08/2023 18:35 Most Re cent VS BP Diastolic 76 mmHg 03/08/2023 18:35 Most R ecent VS Respiratory Rate 18 bpm 03/08/2023 18:[address] Recent VS Heart Rate 78 bpm 03/08/2023 18:35 Most Rec ent VS O2 % BldC Oximetry 98 % 03/08/2023 18:35 Most Recent VS Allergies Allergy Code Allergy Type Reaction Status No Known Allergies 0 No known allergies Active Procedures Unknown or Not Available. History of Immunizations Immunization Code Date pneumococcal, unspecified formulation 109 01/01/2010 Problems Problem Code Start Date Resolved Date Status Acute injury of kidney 03261517833895887 Active Dehydration 12921830 Active Nausea with vomiting 55335406 Acti ve Crohn's disease w/ complication 8262564548152322 Active Nicotine dependence 40652562 Activ e Open wound 663057571 Active Crohns 77612477 Active Fibromyalgia 330368015 Active Pancreatitis 22689037 03/08/2023 Active Results COMPREHENSIVE METABOLIC PANE L (CMP) - Collect Date/Time: 03/08/2023 13:42 Test Name Code Test Result Test Units Test Ref Rang e GLUCOSE 2345-7 117 mg/dL L=70 H=116 BUN 3094-0 30 mg/dL L=6 H=25 CREATININE 2160-0 1.52 mg/dL L=0.51 H=0.95 SODIUM SERUM 2951-2 138 mmol/L L=136 H=145 POTASSIUM SERUM 2823-3 2.9 mmol/L L=3.4 H=5 .2 CHLORIDE SERUM 2075-0 98 mmol/L L=96 H=110 CARBON DIOXIDE (CO2) 2028-9 35 mmol/L L=22 H=34 ANION GAP 68746-5 4.7 mmol/L CALCIUM SERUM 08905-4 9.2 mg/dL L=8.2 H=10. 2 BILIRUBIN TOTAL 1975-2 0.4 mg/dL L=0.0 H=1 .3 ALK. PHOS. 6768-6 218 U/L L=46 H=116 SGOT (AST) 1920-8 39 U/L L=15 H=37 SGPT (ALT) 1742-6 45 U/L L=12 H=78 TOTAL PROTEIN 2885-2 7.5 gm/dL L=6.0 H=8.0 ALBUMIN 1751-7 2.7 gm/dL L=3.4 H=5.0 AGE 67 years eGFR (non-Afr.Amer.) 30078-5 34 mL/min eGFR (Afr-Kazakh) 12391-8 41 mL/min LIPASE* NEW - Collect Date/T lexie: 03/08/2023 13:42 Test Name Code Test Result Test Units Test Ref Rang e LIPASE. 1475 U/L L=16 H=77 MAGNESIUM SERUM* - Collect D ate/Time: 03/08/2023 13:42 Test Name Code Test Result Test Units Test Ref Rang e MAGNESIUM 48831-6 1.9 mg/dL L=1.8 H=2.4 CBC W/ DIFFERENTIAL* - Colle ct Date/Time: 03/08/2023 13:42 Test Name Code Test Result Test Units Test Ref Rang e WBC 6690-2 9.70 th/cmm L=5.00 H=10.00 NEUT % 76.0 % L=40.0 H=80.0 LYMPH % 14.6 % L=10.0 H=50.0 MONO % 03603-7 7.4 % L=2.0 H=12.0 EOS % 1.0 % L=0.0 H=8.0 BASO % 0.1 % L=0.0 H=3.0 IG % 2514-8 0.9 % L=0.0 H=1.1 NRBC % 19097-1 0.0 % L=0.0 H=0.0 NEUT abs count 751-8 7.4 th/cmm L=1.6 H=8. 4 LYMPH abs count 731-0 1.4 th/cmm L=1.5 H=4 .0 MONO abs count 742-7 0.7 th/cmm L=0.2 H=1. 0 EOS abs count 711-2 0.1 th/cmm L=0.0 H=0.5 BASO abs count 704-7 0.0 th/cmm L=0.0 H=0. 2 IG abs count 72754-9 0.1 th/cmm L=0.0 H=0.1 NRBC abs count 58691-8 0.0 mil/cmm L=0.0 H=0. 0 RBC 789-8 3.98 mil/cmm L=3.90 H=5.40 HEMOGLOBIN 718-7 13.4 gm/dL L=12.0 H=16.0 HEMATOCRIT 4544-3 40 % L=37 H=47 MCV 787-2 100 fL L=82 H=92 MCH 785-6 33.7 pg L=27.0 H=31.0 MCHC 786-4 33.6 % L=32.0 H=36.0 RDW-SD 788-0 49.4 fL L=39.0 H=49.0 PLATELET COUNT 777-3 357 th/cmm L=150 H=45 0 CLOSTRIDIUM DIFFICILE BY PCR * - Collect Date/Time: 03/08/2023 15:00 Test Name Code Test Result Test Units Test Ref Rang e Consistency = 29511-4 WATERY N/A C. DIFFICILE DNA 74309-6 NEGATIVE N/A Normal: Negative CULT URINE CULTURE* - Colle t Date/Time: 03/08/2023 13:42 Test Name Code Test Result Test Units Test Ref Rang e COLLECTION MODE: 76284-3 CLEAN CATCH N/A URINALYSIS WITH REFLEX CULT IF POSITIVE* - Collect Date/Time: 03/08/2023 13:42 Test Name Code Test Result Test Units Test Ref Rang e COLLECTION MODE: 83791-1 CLEAN CATCH N/A Color 5778-6 YELLOW N/A yellow Appearance 5767-9 CLEAR N/A clear Glucose urine 33272-9 NEGATIVE N/A negative mg /dl Bilirubin 5770-3 NEGATIVE N/A negative Ketones 2514-8 NEGATIVE N/A negative mg/dl Spec gravity 5811-5 1.010 N/A 1.003 - 1.03 0 pH urine 2756-5 7.5 N/A 5.0 - 7.0 Protein 67036-8 TRACE N/A negative mg/dl Urobilinogen 74162-8 0.2 N/A <or= 1 EU/dl Nitrite. 5802-4 NEGATIVE N/A negative Blood 5794-3 NEGATIVE N/A negative Leukocytes. TRACE N/A negative MICROSCOPIC INDICATED N/A WBCs. 65085-6 5-10 N/A 0-5 / hpf RBCs 12173-4 0-5 N/A 0-5 / hpf Epith cells 91854-3 5-10 N/A 0-5 / hpf Cell types squamous N/A Crystals none N/A none Bacteria moderate N/A none Mucus 8247-9 none N/A none Casts 70679-4 none N/A none /lpf FECAL BACTERIAL PATHOGENS BY PCR - Collect Date/Time: 03/08/2023 15:00 Test Name Code Test Result Test Units Test Ref Rang e Salmonella PCR Negative N/A Negative Shigella PCR Negative N/A Negative Campylobacter PCR Negative N/A Negativ e Shiga Toxin PCR Negative N/A Negative GIARDIA AND CRYPTOSPORIDIUM EXAM STOOL* - Collect Date/Time: 03/08/2023 15:00 Test Name Code Test Result Test Units Test Ref Rang e Giardia andCryptosporidium Crypt osporidium Antigen Neg and Giardia Antigen Neg N/A (See Note) OVA AND PARASITES - COMPLETE * - Collect Date/Time: 03/08/2023 15:00 Test Name Code Test Result Test Units Test Ref Rang e Parasite Growth No ova and parasites seen. N/A Active Medications Unknown or Not Available. Medications Administered During Visit Medication Dose Units Frequency Route Date/Time of Last Dose SODIUM CHLORIDE 0.9% 1000ML 1000 ML X1 IV 03/08/2023 13:44 POTASSIUM CHL IN NS: 20mEq/1000ML 20 MEQ X1 IV 03/08/2023 16:47 HYDROcodone/ACETAMINOPHEN TA B: 5/325MG 1 TAB X1 PO 03/08/2023 18:5 1 Encounters Unknown or Not Available. Social History Smoking Status Code Start Date End Date Current every day smoker 691918553 Patient Decision Aids Unknown or Not Available. Discharge Instructions You were admitted to [facility] on 03/08/2023 11:53 You had the following tests done:CLOSTRIDIUM DIFFICILE BY PCR*FECAL BACTERIAL PATHOGENS BY PCRGIARDIA AND CRYPTOSPORIDIUM EXAM STOOL*OVA AND PARASITES - COMPLETE*CBC W/ DIFFERENTIAL*COMPREHENSIVE METABOLIC PANEL (CMP)CULT URINE CULTURE*LIPASE* NEWMAGNESIUM SERUM*URINALYSIS WITH REFLEX CULT IF POSITIVE* You were discharged from [facility] on 03/08/2023 18:55 Should you have any questions prior to discharge, please contact a member of your healthcare team. If you have left the hospital and have any questions, please contact your primary care physician. Chief Complaint and Reason For Visit Chief Complaint Date of Onset REQUESTING IV FLUIDS FOR DEHYDRATION Function Status Unknown or Not Available. Plan of Care Unknown or Not Available. Referral/Transition of Care Unknown or Not Available.
[2023-03-12 22:00] LABS: ALT 74 U/L (14-59); AST 57 U/L (15-37); Alkaline Phosphatase 278 U/L (46-116); Anion Gap 7.1 mmol/L (3-11); BUN 36 mg/dL (7-18); Bilirubin, Total 0.3 mg/dL (0.2-1.0); CO2 27.9 mmol/L (21.0-32.0); Calcium 9.5 mg/dL (8.5-10.1); Chloride 102 mmol/L (98-107); Estimated GFR 27.04 (mL/min/1.73m2); Glucose 86 mg/dL (74-106); Sodium 137 mmol/L (136-145); TSH 1.36 uIU/mL (0.36-3.74)
[2023-03-12 22:02] LABS: Lipase > 375 U/L (16-77)
== END 2023-03-12 21:20 | disposition home or self-care (01) ==
LOC: NCHCN 21:19
PROVIDERS: PCP Registered Nurse; Visit Provider Family Medicine
DX: E87.6 Hypokalemia (principal); R63.4 Abnormal weight loss
CPT/HCPCS: 80053; 83690; 84439; 84443

== ENCOUNTER 2024-03-17 11:58 | Outpatient (REF) | payer MEDICARE, MEDICAID, SELFPAY ==
--- OUTSIDE RECORDS SUMMARY | 2024-03-17 12:07 | XMS_ITS ---
Author Organization Unknown Address [address] [place] [address] [phone] Phone Care Team Providers Care Pharmaceutical Process Engineer Name Role Phone LIVAN Parker Attending Unavailable SPIKE Becerra Primary Unavailable Results XR FOOT 3V LT* - Completed: 10/03/2021 14:42 LOINC: LEFT FOOT - 3 VIEWS:There ar e degenerative changes of the 1st MTP joint, with joint space narrowing, periarticular spurring and subchondral cyst formation. There is no significant hallux valgus. The plantar arch is maintained. 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 Dictated by: CEO AMALIA GUO MD Transcribed by: JANESSA 10/04/2107:25 D , October 03, 2021 2:20:47 PM 162900 [id number] Electronically Reviewed and Signed By: AMALIA GUO MD 10/20/21 12:15 Copy for: 185 HEALTH INFORMATION MGMT Social History Type Status Start Date End Date Code Code Syst em Smoking History Current every day smoker 585371740 SNOMED CT Sex Female Medications Medication Start Date End Date Route Frequency Dose Code Code System Medication Instructions Home Meds Cyclobenzaprine 10MG Oral Tablet 03/04/2017 09/21/2023 ORAL THREE TIMES A DAY 10 MILLIGRAMS 541254 RxNorm TAKE 10 MILLIGRAMS ORAL THREE TIMES A DAY Cymbalta 60MG Oral Capsule, Delayed Release 03/04/2017 09/21/2023 ORAL DAILY 60 MILLIGRAMS 963650 RxNorm TAKE 60 MILLIGRAMS ORAL DAILY Magnesium 500 MG Oral Tablet 03/04/2017 Unknown ORAL DAILY 500 MILLIGRAMS 890879 RxNorm TAKE 500 MILLIGRAMS ORAL DAILY Cyanocobalamin 1000MCG/1ML Injection Solution 03/21/2018 Unknown INTRA MUSCU LAR MONTHL Y 1 MILLILITERS 173025 RxNorm INJECT 1 MILLILITERS INTRAMUSCUL AR MONTHLY Estradiol 0.5MG Oral Tablet 03/21/2018 09/21/2023 ORAL DAILY 0.5 MILLIGRAMS 19750721 RxNorm TAKE 0.5 MILLIGRAMS ORAL DAILY Metoprolol Succinate 25MG Oral Tablet, Extended Release 03/21/2018 Unknown ORAL DAILY 1 TABLET 530762 RxNorm LISA E 1 TABLET ORAL DAILY Sodium Bicarbonate 650MG Oral Tablet 03/21/2018 09/21/2023 ORAL THREE TIMES A DAY 1950 MILLIGRAMS 316968 RxNorm TAKE 1950 MILLIGRAMS ORAL THREE TIMES A DAY Potassium Chloride 20MEQ Oral Tablet, Extended Release 06/05/2018 09/21/2023 ORAL TWICE A DAY 20 MEQ 5054000 RxNorm TAKE 20 MEQ ORAL TWICE A DAY Magnesium 500 MG Oral Tablet 09/12/2018 09/21/2023 ORAL DAILY 1000 MG 637856 RxNorm TAKE 1 000 MG ORAL DAILY Vitamin D2 2000 IU Oral Tablet 09/12/2018 09/21/2023 ORAL WEEKLY 1 TABLET RxNorm TA KE 1 TABLET ORAL WEEKLY Acetaminophen 325MG Oral Tablet 09/25/2023 Unknown ORAL EVERY 6 HOURS 975 MILLIGRAMS 191131 RxNorm TAKE 975 MILLIGRAMS ORAL EVERY 6 HOURS Amitriptyline 10MG Oral Tablet 09/25/2023 Unknown ORAL EVERY EVENIN G 20 MILLIGRAMS 264780 RxNorm TAKE 20 MILLIGRAMS ORAL EVERY EVENING Cyclobenzaprine 10MG Oral Tablet 09/25/2023 Unknown ORAL THREE TIMES A DAY 5 MILLIGRAMS 920128 RxNorm TAKE 5 MILLIGRAMS ORAL THREE TIMES A DAY DULoxetine HCl 30MG Oral Capsule, Delayed Release 09/25/2023 Unknown ORAL DAILY 30 MILLIGRAMS 669736 RxNorm TAKE 30 MILLIGRAMS ORAL DAILY Estradiol 0.5MG Oral Tablet 09/25/2023 Unknown ORAL DAILY 0.5 TABLET 19750721 RxNorm TAKE 0 .5 TABLET ORAL DAILY Fluticasone Propionate 0.05MG/1Actuatio n Nasal [place] 09/25/2023 Unknown NASAL TWICE A DAY 1 unit(s) 8469621 RxNorm SPRAY 1 EACH NASAL TWICE A DAY Folic Acid 1MG Oral Tablet 09/25/2023 Unknown ORAL DAILY 1 MILLIGRAMS 878018 RxNorm TAKE 1 MILLIGRAMS ORAL DAILY Loperamide 2 MG Oral Tablet 09/25/2023 Unknown ORAL NEEDED DAILY RxNorm TAKE 1-2 CAPSULE ORAL NEEDED DAILY Nicotine 21MG/24HR Transdermal Patch, Extended Release 09/25/2023 Unknown TRANS DERMA L DAILY 1 unit(s) RxNorm APPLY 1 EACH TRANSDERMAL DAILY Nicotine 4 MG Oromucosal Gum 09/25/2023 Unknown OROMU COSAL 4 MG 447957 RxNorm 4 MG OROMUCOSAL Ondansetron HCl 4MG Oral Tablet 09/25/2023 Unknown ORAL NEEDED DAILY 4 MILLIGRAMS 19790716 RxNorm TAKE 4 MILLIGRAMS ORAL NEEDED DAILY Potassium Chloride 10MEQ Oral Capsule, Extended Release 09/25/2023 Unknown ORAL DAILY 20 MEQ 459634 RxNorm TAKE 20 MEQ ORAL DAILY Sodium Bicarbonate 650MG Oral Tablet 09/25/2023 Unknown ORAL 650 MILLIGRAMS 19870815 RxNorm TAKE 650 MILLIGRAMS ORAL Vitamin D3 25MCG Oral Capsule, Liquid Filled 09/25/2023 Unknown ORAL DAILY 25 MCG RxNorm TAKE 25 MCG ORAL DAILY busPIRone 10MG Oral Tablet 09/25/2023 Unknown ORAL TWICE A DAY 10 MILLIGRAMS 094274 RxNorm TAKE 10 MILLIGRAMS ORAL TWICE A DAY Assessment You had the following problems:ACUTE INJURY OF KIDNEYDEHYDRATIONNAUSEA WITH VOMITINGCROHN'S DISEASE W/ COMPLICATIONNICOTINE DEPENDENCEOPEN WOUNDCROHNSFIBROMYALGIAPANCREATITISALTERED MENTAL STATUS Hospital Discharge Instructions Should you have any questions prior to discharge, please contact a member of your healthcare team. If you have left the hospital and have any questions, please contact your primary care physician. Reason For Referral No Data Found Problems Problem Start Date Resolved Date Status Code Code System ACUTE INJURY OF KIDNEY active 0135834 [id number] SNOMED-CT DEHYDRATION active 54838875 SNOMED-C T NAUSEA WITH VOMITING active 37110995 SNOMED-CT CROHN'S DISEASE W/ COMPLICATION active 0551615751834686 SNOMED-CT NICOTINE DEPENDENCE active 46577349 SNOMED-CT OPEN WOUND active 439574743 SNOMED-CT CROHNS active 25744451 SNOMED-CT FIBROMYALGIA active 802199049 SNOMED- CT PANCREATITIS active 61244897 SNOMED- CT ALTERED MENTAL STATUS active 02580467 4 SNOMED-CT Allergies and Adverse Reactions Allergy Substance Reaction Severity Start Date Concern Status Code Code System NSAID CKD (SNOMED-CT: null) Active 81165481 SNOMED-CT CHANTIX SEIZURE (SNOMED-CT: null) Active 067369 RxNorm VARENICLINE SEIZURE (SNOMED-CT: null) Active 035305 RxNorm Plan of Treatment LAB DRAW 15MIN 12/10/2023 LAB DRAW 15MIN 12/10/2023 BONE DENSITY DEXA SPINE & HIP 4 MM SCREEN BILAT 03/31/2023 CT CHEST W/O CONTRAST 03/31/2023 US ABDOMEN LIMITED 1 ORGAN 04/17/2022 CT FACIAL/SINUS W/O CONTRAS 04/17/2022 BONE DENSITY DEXA SPINE & HIP 2 MM SCREEN BILAT 11/20/2021 CT CHEST W/O CONTRAST 11/20/2021 MM SCREEN BILAT 11/20/2021 CT CHEST W/O CONTRAST 10/24/2021 MM SCREEN BILAT 10/24/2021 US ABDOMEN LIMITED 1 ORGAN 08/29/2021 US ABDOMEN LIMITED 1 ORGAN 07/31/2021 Encounters Encounter Diagnosis Start Date Code Code Sys tem Arthralgia of the ankle and/or foot 10/03/2021 50346 4009 SNOMED-CT Personal Care Team Section Performer Name Performer Role Active Date Inactive Da te
--- OUTSIDE RECORDS SUMMARY | 2024-03-17 12:08 | XMS_ITS ---
Author Organization Unknown Address [address] [place] [address] [phone] Phone Care Team Providers Care Coat Check Attendant Name Role Phone SPIKE Becerra Attending Unavailable Results CT LDCT FOR LUNG CA SCREEN - Completed: 11/20/2021 10:45 LOINC: Radiation optimization: All CT scans at this facility use at least one of these dose optimization techniques: automated exposure control; mA and/or kV adjustment per patient size (includes targeted exams where dose is matched to clinical indication); or iterative reconstruction. LOW DOSE CHEST CT FOR LUNG CANCER SCREENING Comparison 10 January 2019. The heart size is normal. Coronary artery calcifications are seen. The ascending aorta measures 3 cm. The descending aorta measures 2 cm. There is no pleural or pericardial effusion or evidence of adenopathy. A calcified left lower lobe granuloma is noted. There are moderate emphysematous changes greatest in the right lower lobe. There is a calcified granuloma at the medial left lung base. There are no suspicious pulmonary nodules. Medullary nephrocalcinosis and renal cysts are noted. No bony abnormalities are seen. IMPRESSION: No suspicious nodules. Annual low dose screening chest CT is recommended. Lung Rads Category 1: Continue annual screening with LDCT in twelve months. Dictated by: CEO AMALIA GUO MD Transcribed by: [facility] [place] 11/21/21/12:32 D Thursday, November 20, 2021 3:52:29 PM [id number] Electronically Reviewed and Signed By: AMALIA GUO MD 11/21/21 13:38 Copy for: SPIKE Becerra via fax Copy for: 185 HEALTH INFORMATION MGMT MM SCREENING BILAT MAMMO W T RICH W CAD - Completed: 11/20/2021 09:45 LOINC: Digital mammograms were inte rpreted according to the usual protocol including computer analysis with CADx system including tomosynthesis. Comparison is made with exams from 2013 through 2019. The breasts are composed of extremely dense fibroglandular tissue. This decreases the sensitivity of the mammogram and may obscure underlying abnormalities. A cylindrical opacity is again noted in the superior right breast. No suspicious masses or suspicious microcalcifications are seen. There are prominent vessels in the right breast which appears unchanged over time. IMPRESSION:Negative mammogram with benign findings. Yearly screening mammography is recommended. BI-RADS Assessment: Category 2 - Benign findings BREAST DENSITY: d. The breasts are extremely dense which lowers the sensitivity of mammography. Dictated by: CEO AMALIA GUO MD Transcribed by: JANESSA 11/20/2115:01 D Saturday, November 20, 2021 9:56:41 AM 187560 [id number] Electronically Reviewed and Signed By: AMALIA GUO MD 11/20/21 15:48 TECHNOLOGIST: RT Carla (R) (CT) (M) Copy for: SPIKE Becerra via fax Copy for: [facility] HEALTH INFORMATION MGMT Social History Type Status Start Date End Date Code Code Syst em Smoking History Current every day smoker 271437713 SNOMED CT Sex Female Medications Medication Start Date End Date Route Frequency Dose Code Code System Medication Instructions Home Meds Cyclobenzaprine 10MG Oral Tablet 03/04/2017 09/21/2023 ORAL THREE TIMES A DAY 10 MILLIGRAMS 079010 RxNorm TAKE 10 MILLIGRAMS ORAL THREE TIMES A DAY Cymbalta 60MG Oral Capsule, Delayed Release 03/04/2017 09/21/2023 ORAL DAILY 60 MILLIGRAMS 325767 RxNorm TAKE 60 MILLIGRAMS ORAL DAILY Magnesium 500 MG Oral Tablet 03/04/2017 Unknown ORAL DAILY 500 MILLIGRAMS 164018 RxNorm TAKE 500 MILLIGRAMS ORAL DAILY Cyanocobalamin 1000MCG/1ML Injection Solution 03/21/2018 Unknown INTRA MUSCU LAR MONTHL Y 1 MILLILITERS 365040 RxNorm INJECT 1 MILLILITERS INTRAMUSCUL AR MONTHLY Estradiol 0.5MG Oral Tablet 03/21/2018 09/21/2023 ORAL DAILY 0.5 MILLIGRAMS 263304 RxNorm TAKE 0.5 MILLIGRAMS ORAL DAILY Metoprolol Succinate 25MG Oral Tablet, Extended Release 03/21/2018 Unknown ORAL DAILY 1 TABLET 421066 RxNorm LISA E 1 TABLET ORAL DAILY Sodium Bicarbonate 650MG Oral Tablet 03/21/2018 09/21/2023 ORAL THREE TIMES A DAY 1950 MILLIGRAMS 652572 RxNorm TAKE 1950 MILLIGRAMS ORAL THREE TIMES A DAY Potassium Chloride 20MEQ Oral Tablet, Extended Release 06/05/2018 09/21/2023 ORAL TWICE A DAY 20 MEQ 1616703 RxNorm TAKE 20 MEQ ORAL TWICE A DAY Magnesium 500 MG Oral Tablet 09/12/2018 09/21/2023 ORAL DAILY 1000 MG 910995 RxNorm TAKE 1 000 MG ORAL DAILY Vitamin D2 2000 IU Oral Tablet 09/12/2018 09/21/2023 ORAL WEEKLY 1 TABLET RxNorm TA KE 1 TABLET ORAL WEEKLY Acetaminophen 325MG Oral Tablet 09/25/2023 Unknown ORAL EVERY 6 HOURS 975 MILLIGRAMS 013286 RxNorm TAKE 975 MILLIGRAMS ORAL EVERY 6 HOURS Amitriptyline 10MG Oral Tablet 09/25/2023 Unknown ORAL EVERY EVENIN G 20 MILLIGRAMS 326597 RxNorm TAKE 20 MILLIGRAMS ORAL EVERY EVENING Cyclobenzaprine 10MG Oral Tablet 09/25/2023 Unknown ORAL THREE TIMES A DAY 5 MILLIGRAMS 274793 RxNorm TAKE 5 MILLIGRAMS ORAL THREE TIMES A DAY DULoxetine HCl 30MG Oral Capsule, Delayed Release 09/25/2023 Unknown ORAL DAILY 30 MILLIGRAMS 753734 RxNorm TAKE 30 MILLIGRAMS ORAL DAILY Estradiol 0.5MG Oral Tablet 09/25/2023 Unknown ORAL DAILY 0.5 TABLET 520976 RxNorm TAKE 0 .5 TABLET ORAL DAILY Fluticasone Propionate 0.05MG/1Actuatio n Nasal [place] 09/25/2023 Unknown NASAL TWICE A DAY 1 unit(s) 6242097 RxNorm SPRAY 1 EACH NASAL TWICE A DAY Folic Acid 1MG Oral Tablet 09/25/2023 Unknown ORAL DAILY 1 MILLIGRAMS 085208 RxNorm TAKE 1 MILLIGRAMS ORAL DAILY Loperamide 2 MG Oral Tablet 09/25/2023 Unknown ORAL NEEDED DAILY RxNorm TAKE 1-2 CAPSULE ORAL NEEDED DAILY Nicotine 21MG/24HR Transdermal Patch, Extended Release 09/25/2023 Unknown TRANS DERMA L DAILY 1 unit(s) 900883 RxNorm APPLY 1 EACH TRANSDERMAL DAILY Nicotine 4 MG Oromucosal Gum 09/25/2023 Unknown OROMU COSAL 4 MG 340959 RxNorm 4 MG OROMUCOSAL Ondansetron HCl 4MG Oral Tablet 09/25/2023 Unknown ORAL NEEDED DAILY 4 MILLIGRAMS 760773 RxNorm TAKE 4 MILLIGRAMS ORAL NEEDED DAILY Potassium Chloride 10MEQ Oral Capsule, Extended Release 09/25/2023 Unknown ORAL DAILY 20 MEQ 117108 RxNorm TAKE 20 MEQ ORAL DAILY Sodium Bicarbonate 650MG Oral Tablet 09/25/2023 Unknown ORAL 650 MILLIGRAMS 364008 RxNorm TAKE 650 MILLIGRAMS ORAL Vitamin D3 25MCG Oral Capsule, Liquid Filled 09/25/2023 Unknown ORAL DAILY 25 MCG RxNorm TAKE 25 MCG ORAL DAILY busPIRone 10MG Oral Tablet 09/25/2023 Unknown ORAL TWICE A DAY 10 MILLIGRAMS 047424 RxNorm TAKE 10 MILLIGRAMS ORAL TWICE A [...] Code System ACUTE INJURY OF KIDNEY active 0813887 [id number] SNOMED-CT DEHYDRATION active 63087661 SNOMED-C T NAUSEA WITH VOMITING active 89168694 SNOMED-CT CROHN'S DISEASE W/ COMPLICATION active 7601807425723790 SNOMED-CT NICOTINE DEPENDENCE active 54786788 SNOMED-CT OPEN WOUND active 729363262 SNOMED-CT CROHNS active 65428208 SNOMED-CT FIBROMYALGIA active 141941689 SNOMED- CT PANCREATITIS active 95702586 SNOMED- CT ALTERED MENTAL STATUS active 63276475 4 SNOMED-CT Allergies and Adverse Reactions Allergy Substance Reaction Severity Start Date Concern Status Code Code System NSAID CKD (SNOMED-CT: null) Active 15023440 SNOMED-CT CHANTIX SEIZURE (SNOMED-CT: null) Active 727648 RxNorm VARENICLINE SEIZURE (SNOMED-CT: null) Active 889822 RxNorm Plan of Treatment LAB DRAW 15MIN [...] Diagnosis Start Date Code Code Sys tem Encounter for screening mamm ogram for malignant neoplasm of breast 11/20/2021 SNOMED-CT Personal Care Team Section Performer Name Performer Role Active Date Inactive Da te
--- OUTSIDE RECORDS SUMMARY | 2024-03-17 12:08 | XMS_ITS ---
Author Organization Unknown Address [address] [place] [address] [phone] Phone Care Team Providers Care Dramatic Coach Name Role Phone SPIKE Becerra Attending Unavailable Social History Type Status Start Date End Date Code Code Syst em Smoking History Current every day smoker [id number] SNOMED CT Sex Female Medications Medication Start Date End Date Route Frequency Dose Code Code System Medication Instructions Home Meds Cyclobenzaprine 10MG Oral Tablet 03/04/2017 09/21/2023 ORAL THREE TIMES A DAY 10 MILLIGRAMS 738473 RxNorm TAKE 10 MILLIGRAMS ORAL THREE TIMES A DAY Cymbalta 60MG Oral Capsule, Delayed Release 03/04/2017 09/21/2023 ORAL DAILY 60 MILLIGRAMS 766707 RxNorm TAKE 60 MILLIGRAMS ORAL DAILY Magnesium 500 MG Oral Tablet 03/04/2017 Unknown ORAL DAILY 500 MILLIGRAMS 399290 RxNorm TAKE 500 MILLIGRAMS ORAL DAILY Cyanocobalamin 1000MCG/1ML Injection Solution 03/21/2018 Unknown INTRA MUSCU LAR MONTHL Y 1 MILLILITERS 403338 RxNorm INJECT 1 MILLILITERS INTRAMUSCUL AR MONTHLY Estradiol 0.5MG Oral Tablet 03/21/2018 09/21/2023 ORAL DAILY 0.5 MILLIGRAMS 754413 RxNorm TAKE 0.5 MILLIGRAMS ORAL DAILY Metoprolol Succinate 25MG Oral Tablet, Extended Release 03/21/2018 Unknown ORAL DAILY 1 TABLET 933046 RxNorm LISA E 1 TABLET ORAL DAILY Sodium Bicarbonate 650MG Oral Tablet 03/21/2018 09/21/2023 ORAL THREE TIMES A DAY 1950 MILLIGRAMS 464350 RxNorm TAKE 1950 MILLIGRAMS ORAL THREE TIMES A DAY Potassium Chloride 20MEQ Oral Tablet, Extended Release 06/05/2018 09/21/2023 ORAL TWICE A DAY 20 MEQ 0159013 RxNorm TAKE 20 MEQ ORAL TWICE A DAY Magnesium 500 MG Oral Tablet 09/12/2018 09/21/2023 ORAL DAILY 1000 MG 914473 RxNorm TAKE 1 000 MG ORAL DAILY Vitamin D2 2000 IU Oral Tablet 09/12/2018 09/21/2023 ORAL WEEKLY 1 TABLET RxNorm TA KE 1 TABLET ORAL WEEKLY Acetaminophen 325MG Oral Tablet 09/25/2023 Unknown ORAL EVERY 6 HOURS 975 MILLIGRAMS 511545 RxNorm TAKE 975 MILLIGRAMS ORAL EVERY 6 HOURS Amitriptyline 10MG Oral Tablet 09/25/2023 Unknown ORAL EVERY EVENIN G 20 MILLIGRAMS 076802 RxNorm TAKE 20 MILLIGRAMS ORAL EVERY EVENING Cyclobenzaprine 10MG Oral Tablet 09/25/2023 Unknown ORAL THREE TIMES A DAY 5 MILLIGRAMS 633930 RxNorm TAKE 5 MILLIGRAMS ORAL THREE TIMES A DAY DULoxetine HCl 30MG Oral Capsule, Delayed Release 09/25/2023 Unknown ORAL DAILY 30 MILLIGRAMS 234690 RxNorm TAKE 30 MILLIGRAMS ORAL DAILY Estradiol 0.5MG Oral Tablet 09/25/2023 Unknown ORAL DAILY 0.5 TABLET 19750721 RxNorm TAKE 0 .5 TABLET ORAL DAILY Fluticasone Propionate 0.05MG/1Actuatio n Nasal [place] 09/25/2023 Unknown NASAL TWICE A DAY 1 unit(s) 4780865 RxNorm SPRAY 1 EACH NASAL TWICE A DAY Folic Acid 1MG Oral Tablet 09/25/2023 Unknown ORAL DAILY 1 MILLIGRAMS 814986 RxNorm TAKE 1 MILLIGRAMS ORAL DAILY Loperamide 2 MG Oral Tablet 09/25/2023 Unknown ORAL NEEDED DAILY RxNorm TAKE 1-2 CAPSULE ORAL NEEDED DAILY Nicotine 21MG/24HR Transdermal Patch, Extended Release 09/25/2023 Unknown TRANS DERMA L DAILY 1 unit(s) 852510 RxNorm APPLY 1 EACH TRANSDERMAL DAILY Nicotine 4 MG Oromucosal Gum 09/25/2023 Unknown OROMU COSAL 4 MG 564442 RxNorm 4 MG OROMUCOSAL Ondansetron HCl 4MG Oral Tablet 09/25/2023 Unknown ORAL NEEDED DAILY 4 MILLIGRAMS 381740 RxNorm TAKE 4 MILLIGRAMS ORAL NEEDED DAILY Potassium Chloride 10MEQ Oral Capsule, Extended Release 09/25/2023 Unknown ORAL DAILY 20 MEQ 504620 RxNorm TAKE 20 MEQ ORAL DAILY Sodium Bicarbonate 650MG Oral Tablet 09/25/2023 Unknown ORAL 650 MILLIGRAMS 419117 RxNorm TAKE 650 MILLIGRAMS ORAL Vitamin D3 25MCG Oral Capsule, Liquid Filled 09/25/2023 Unknown ORAL DAILY 25 MCG RxNorm TAKE 25 MCG ORAL DAILY busPIRone 10MG Oral Tablet 09/25/2023 Unknown ORAL TWICE A DAY 10 MILLIGRAMS 671885 RxNorm TAKE 10 MILLIGRAMS ORAL TWICE A [...] Code System ACUTE INJURY OF KIDNEY active 0844632 [id number] SNOMED-CT DEHYDRATION active 61579543 SNOMED-C T NAUSEA WITH VOMITING active 49588407 SNOMED-CT CROHN'S DISEASE W/ COMPLICATION active 1466453337282330 SNOMED-CT NICOTINE DEPENDENCE active 77276608 SNOMED-CT OPEN WOUND active 760613547 SNOMED-CT CROHNS active 42537259 SNOMED-CT FIBROMYALGIA active 445930283 SNOMED- CT PANCREATITIS active 14075088 SNOMED- CT ALTERED MENTAL STATUS active 11861614 4 SNOMED-CT Allergies and Adverse Reactions Allergy Substance Reaction Severity Start Date Concern Status Code Code System NSAID CKD (SNOMED-CT: null) Active 18020759 SNOMED-CT CHANTIX SEIZURE (SNOMED-CT: null) Active 876383 RxNorm VARENICLINE SEIZURE (SNOMED-CT: null) Active 781058 RxNorm Plan of Treatment LAB DRAW 15MIN [...] Diagnosis Start Date Code Code Sys tem Canceled operative procedure 10/24/2021 96331496 SNOMED-CT Personal Care Team Section Performer Name Performer Role Active Date Inactive Da te
--- OUTSIDE RECORDS SUMMARY | 2024-03-17 12:08 | XMS_ITS ---
Author Organization Unknown Address [address] [place] [address] [phone] Phone Care Team Providers Care Mainspring Former Brace End Name Role Phone LIVAN Parker Attending Unavailable SPIKE Becerra Primary Unavailable Social History Type Status Start Date End Date Code Code Syst em Smoking History Current every day smoker [id number] SNOMED CT Sex Female Medications Medication Start Date End Date Route Frequency Dose Code Code System Medication Instructions Home Meds Cyclobenzaprine 10MG Oral Tablet 03/04/2017 09/21/2023 ORAL THREE TIMES A DAY 10 MILLIGRAMS 331925 RxNorm TAKE 10 MILLIGRAMS ORAL THREE TIMES A DAY Cymbalta 60MG Oral Capsule, Delayed Release 03/04/2017 09/21/2023 ORAL DAILY 60 MILLIGRAMS 216164 RxNorm TAKE 60 MILLIGRAMS ORAL DAILY Magnesium 500 MG Oral Tablet 03/04/2017 Unknown ORAL DAILY 500 MILLIGRAMS 806264 RxNorm TAKE 500 MILLIGRAMS ORAL DAILY Cyanocobalamin 1000MCG/1ML Injection Solution 03/21/2018 Unknown INTRA MUSCU LAR MONTHL Y 1 MILLILITERS 652155 RxNorm INJECT 1 MILLILITERS INTRAMUSCUL AR MONTHLY Estradiol 0.5MG Oral Tablet 03/21/2018 09/21/2023 ORAL DAILY 0.5 MILLIGRAMS 950733 RxNorm TAKE 0.5 MILLIGRAMS ORAL DAILY Metoprolol Succinate 25MG Oral Tablet, Extended Release 03/21/2018 Unknown ORAL DAILY 1 TABLET 014567 RxNorm LISA E 1 TABLET ORAL DAILY Sodium Bicarbonate 650MG Oral Tablet 03/21/2018 09/21/2023 ORAL THREE TIMES A DAY 1950 MILLIGRAMS 878493 RxNorm TAKE 1950 MILLIGRAMS ORAL THREE TIMES A DAY Potassium Chloride 20MEQ Oral Tablet, Extended Release 06/05/2018 09/21/2023 ORAL TWICE A DAY 20 MEQ 9388236 RxNorm TAKE 20 MEQ ORAL TWICE A DAY Magnesium 500 MG Oral Tablet 09/12/2018 09/21/2023 ORAL DAILY 1000 MG 268693 RxNorm TAKE 1 000 MG ORAL DAILY Vitamin D2 2000 IU Oral Tablet 09/12/2018 09/21/2023 ORAL WEEKLY 1 TABLET RxNorm TA KE 1 TABLET ORAL WEEKLY Acetaminophen 325MG Oral Tablet 09/25/2023 Unknown ORAL EVERY 6 HOURS 975 MILLIGRAMS 368519 RxNorm TAKE 975 MILLIGRAMS ORAL EVERY 6 HOURS Amitriptyline 10MG Oral Tablet 09/25/2023 Unknown ORAL EVERY EVENIN G 20 MILLIGRAMS 271630 RxNorm TAKE 20 MILLIGRAMS ORAL EVERY EVENING Cyclobenzaprine 10MG Oral Tablet 09/25/2023 Unknown ORAL THREE TIMES A DAY 5 MILLIGRAMS 723662 RxNorm TAKE 5 MILLIGRAMS ORAL THREE TIMES A DAY DULoxetine HCl 30MG Oral Capsule, Delayed Release 09/25/2023 Unknown ORAL DAILY 30 MILLIGRAMS 689656 RxNorm TAKE 30 MILLIGRAMS ORAL DAILY Estradiol 0.5MG Oral Tablet 09/25/2023 Unknown ORAL DAILY 0.5 TABLET 19750721 RxNorm TAKE 0 .5 TABLET ORAL DAILY Fluticasone Propionate 0.05MG/1Actuatio n Nasal [place] 09/25/2023 Unknown NASAL TWICE A DAY 1 unit(s) 0181010 RxNorm SPRAY 1 EACH NASAL TWICE A DAY Folic Acid 1MG Oral Tablet 09/25/2023 Unknown ORAL DAILY 1 MILLIGRAMS 167019 RxNorm TAKE 1 MILLIGRAMS ORAL DAILY Loperamide 2 MG Oral Tablet 09/25/2023 Unknown ORAL NEEDED DAILY RxNorm TAKE 1-2 CAPSULE ORAL NEEDED DAILY Nicotine 21MG/24HR Transdermal Patch, Extended Release 09/25/2023 Unknown TRANS DERMA L DAILY 1 unit(s) 464402 RxNorm APPLY 1 EACH TRANSDERMAL DAILY Nicotine 4 MG Oromucosal Gum 09/25/2023 Unknown OROMU COSAL 4 MG 568074 RxNorm 4 MG OROMUCOSAL Ondansetron HCl 4MG Oral Tablet 09/25/2023 Unknown ORAL NEEDED DAILY 4 MILLIGRAMS 698661 RxNorm TAKE 4 MILLIGRAMS ORAL NEEDED DAILY Potassium Chloride 10MEQ Oral Capsule, Extended Release 09/25/2023 Unknown ORAL DAILY 20 MEQ 507579 RxNorm TAKE 20 MEQ ORAL DAILY Sodium Bicarbonate 650MG Oral Tablet 09/25/2023 Unknown ORAL 650 MILLIGRAMS 162465 RxNorm TAKE 650 MILLIGRAMS ORAL Vitamin D3 25MCG Oral Capsule, Liquid Filled 09/25/2023 Unknown ORAL DAILY 25 MCG RxNorm TAKE 25 MCG ORAL DAILY busPIRone 10MG Oral Tablet 09/25/2023 Unknown ORAL TWICE A DAY 10 MILLIGRAMS 986959 RxNorm TAKE 10 MILLIGRAMS ORAL TWICE A [...] Code System ACUTE INJURY OF KIDNEY active 8987988 [id number] SNOMED-CT DEHYDRATION active 61998800 SNOMED-C T NAUSEA WITH VOMITING active 42957199 SNOMED-CT CROHN'S DISEASE W/ COMPLICATION active 2245373491170028 SNOMED-CT NICOTINE DEPENDENCE active 35797128 SNOMED-CT OPEN WOUND active 923137362 SNOMED-CT CROHNS active 58000942 SNOMED-CT FIBROMYALGIA active 971800311 SNOMED- CT PANCREATITIS active 77705153 SNOMED- CT ALTERED MENTAL STATUS active 34826862 4 SNOMED-CT Allergies and Adverse Reactions Allergy Substance Reaction Severity Start Date Concern Status Code Code System NSAID CKD (SNOMED-CT: null) Active 00756956 SNOMED-CT CHANTIX SEIZURE (SNOMED-CT: null) Active 280222 RxNorm VARENICLINE SEIZURE (SNOMED-CT: null) Active 058986 RxNorm Plan of Treatment LAB DRAW 15MIN [...] Diagnosis Start Date Code Code Sys tem 11/13/2021 [id number] SNOMED-CT Personal Care Team Section Performer Name Performer Role Active Date Inactive Da te
--- OUTSIDE RECORDS SUMMARY | 2024-03-17 12:09 | XMS_ITS ---
Author Organization Unknown Address [address] [place] [address] [phone] Phone Care Team Providers Care Metal Miner Name Role Phone SPIKE Becerra Attending Unavailable Results BD DXA BONE DENSITY HIP AND SPINE - Completed: 12/17/2021 15:21 LOINC: [facility] [place], [place] [address] PACS EMISSION TECHNICIAN REPORT Patient Name: DAILY NEVILLE MRN: Sex: : Age: [id number] F [id number] Account: StayType: Accession: Admit: [id number] O/P [id number] 12/17/2021 Ordered: Order ID: Ordering Provider: [id number] SONDRA LALA Completed: CompletedBy: Resulted: By: [id number] [facility] [id number] [facility] Study Description: BD DXA BONE DENSITY HIP AND SPINE Study Reason: OSTEOPENIA TECHNIQUE: Performed on a Hologic unit. COMPARISON: 2019 FINDINGS: Lumbar Spine total T-score: -1.9, in the osteopenic range. The spine was autolyzed on the prior exam. Hip total T-score: -1.5 Femoral neck yields a T score of: -2.5, on the borderline of osteoporosis. No significant change from prior. IMPRESSION: Osteopenia of the lumbar spine. Osteoporosis of the hip. World Health Organization criteria for BMD interpretation classify patients: Normal...... T- Score at or above -1.0 Osteopenic... T- Score between -1.0 and -2.5 Osteoporosis... T-Score at or below -2.5 Report Digitally Signed by Karlie Shepherd on 12/17/2021 04:52 PM EDT Social History Type Status Start Date End Date Code Code Syst em Smoking History Current every day smoker [id number] SNOMED CT Sex Female Medications Medication Start Date End Date Route Frequency Dose Code Code System Medication Instructions Home Meds Cyclobenzaprine 10MG Oral Tablet 03/04/2017 09/21/2023 ORAL THREE TIMES A DAY 10 MILLIGRAMS 613368 RxNorm TAKE 10 MILLIGRAMS ORAL THREE TIMES A DAY Cymbalta 60MG Oral Capsule, Delayed Release 03/04/2017 09/21/2023 ORAL DAILY 60 MILLIGRAMS 258196 RxNorm TAKE 60 MILLIGRAMS ORAL DAILY Magnesium 500 MG Oral Tablet 03/04/2017 Unknown ORAL DAILY 500 MILLIGRAMS 524605 RxNorm TAKE 500 MILLIGRAMS ORAL DAILY Cyanocobalamin 1000MCG/1ML Injection Solution 03/21/2018 Unknown INTRA MUSCU LAR MONTHL Y 1 MILLILITERS 357716 RxNorm INJECT 1 MILLILITERS INTRAMUSCUL AR MONTHLY Estradiol 0.5MG Oral Tablet 03/21/2018 09/21/2023 ORAL DAILY 0.5 MILLIGRAMS 204403 RxNorm TAKE 0.5 MILLIGRAMS ORAL DAILY Metoprolol Succinate 25MG Oral Tablet, Extended Release 03/21/2018 Unknown ORAL DAILY 1 TABLET 518594 RxNorm LISA E 1 TABLET ORAL DAILY Sodium Bicarbonate 650MG Oral Tablet 03/21/2018 09/21/2023 ORAL THREE TIMES A DAY 1950 MILLIGRAMS 180745 RxNorm TAKE 1950 MILLIGRAMS ORAL THREE TIMES A DAY Potassium Chloride 20MEQ Oral Tablet, Extended Release 06/05/2018 09/21/2023 ORAL TWICE A DAY 20 MEQ 5672572 RxNorm TAKE 20 MEQ ORAL TWICE A DAY Magnesium 500 MG Oral Tablet 09/12/2018 09/21/2023 ORAL DAILY 1000 MG 272992 RxNorm TAKE 1 000 MG ORAL DAILY Vitamin D2 2000 IU Oral Tablet 09/12/2018 09/21/2023 ORAL WEEKLY 1 TABLET RxNorm TA KE 1 TABLET ORAL WEEKLY Acetaminophen 325MG Oral Tablet 09/25/2023 Unknown ORAL EVERY 6 HOURS 975 MILLIGRAMS 326282 RxNorm TAKE 975 MILLIGRAMS ORAL EVERY 6 HOURS Amitriptyline 10MG Oral Tablet 09/25/2023 Unknown ORAL EVERY EVENIN G 20 MILLIGRAMS 064830 RxNorm TAKE 20 MILLIGRAMS ORAL EVERY EVENING Cyclobenzaprine 10MG Oral Tablet 09/25/2023 Unknown ORAL THREE TIMES A DAY 5 MILLIGRAMS 853711 RxNorm TAKE 5 MILLIGRAMS ORAL THREE TIMES A DAY DULoxetine HCl 30MG Oral Capsule, Delayed Release 09/25/2023 Unknown ORAL DAILY 30 MILLIGRAMS 646417 RxNorm TAKE 30 MILLIGRAMS ORAL DAILY Estradiol 0.5MG Oral Tablet 09/25/2023 Unknown ORAL DAILY 0.5 TABLET 021445 RxNorm TAKE 0 .5 TABLET ORAL DAILY Fluticasone Propionate 0.05MG/1Actuatio n Nasal [place] 09/25/2023 Unknown NASAL TWICE A DAY 1 unit(s) 1169206 RxNorm SPRAY 1 EACH NASAL TWICE A DAY Folic Acid 1MG Oral Tablet 09/25/2023 Unknown ORAL DAILY 1 MILLIGRAMS 813655 RxNorm TAKE 1 MILLIGRAMS ORAL DAILY Loperamide 2 MG Oral Tablet 09/25/2023 Unknown ORAL NEEDED DAILY RxNorm TAKE 1-2 CAPSULE ORAL NEEDED DAILY Nicotine 21MG/24HR Transdermal Patch, Extended Release 09/25/2023 Unknown TRANS DERMA L DAILY 1 unit(s) 192855 RxNorm APPLY 1 EACH TRANSDERMAL DAILY Nicotine 4 MG Oromucosal Gum 09/25/2023 Unknown OROMU COSAL 4 MG 572897 RxNorm 4 MG OROMUCOSAL Ondansetron HCl 4MG Oral Tablet 09/25/2023 Unknown ORAL NEEDED DAILY 4 MILLIGRAMS 700388 RxNorm TAKE 4 MILLIGRAMS ORAL NEEDED DAILY Potassium Chloride 10MEQ Oral Capsule, Extended Release 09/25/2023 Unknown ORAL DAILY 20 MEQ 072402 RxNorm TAKE 20 MEQ ORAL DAILY Sodium Bicarbonate 650MG Oral Tablet 09/25/2023 Unknown ORAL 650 MILLIGRAMS 306078 RxNorm TAKE 650 MILLIGRAMS ORAL Vitamin D3 25MCG Oral Capsule, Liquid Filled 09/25/2023 Unknown ORAL DAILY 25 MCG RxNorm TAKE 25 MCG ORAL DAILY busPIRone 10MG Oral Tablet 09/25/2023 Unknown ORAL TWICE A DAY 10 MILLIGRAMS 855190 RxNorm TAKE 10 MILLIGRAMS ORAL TWICE A [...] Code System ACUTE INJURY OF KIDNEY active 1353859 4042093314 SNOMED-CT DEHYDRATION active 97824304 SNOMED-C T NAUSEA WITH VOMITING active 97394380 SNOMED-CT CROHN'S DISEASE W/ COMPLICATION active 9948355302742759 SNOMED-CT NICOTINE DEPENDENCE active 27655126 SNOMED-CT OPEN WOUND active 746104577 SNOMED-CT CROHNS active 50880306 SNOMED-CT FIBROMYALGIA active 702904129 SNOMED- CT PANCREATITIS active 96989528 SNOMED- CT ALTERED MENTAL STATUS active 60449029 4 SNOMED-CT Allergies and Adverse Reactions Allergy Substance Reaction Severity Start Date Concern Status Code Code System NSAID CKD (SNOMED-CT: null) Active 90095890 SNOMED-CT CHANTIX SEIZURE (SNOMED-CT: null) Active 510123 RxNorm VARENICLINE SEIZURE (SNOMED-CT: null) Active 301064 RxNorm Plan of Treatment LAB DRAW 15MIN [...] Diagnosis Start Date Code Code Sys tem Age-related osteoporosis wit hout current pathological fracture 12/17/2021 SNOMED-CT Personal Care Team Section Performer Name Performer Role Active Date Inactive Da te
--- OUTSIDE RECORDS SUMMARY | 2024-03-17 12:09 | XMS_ITS ---
Author Organization Unknown Address [address] [place] [address] [phone] Phone Care Team Providers Care Second Hand Name Role Phone SPIKE Becerra Attending Unavailable Results XR CHEST 2V PA AND LATERAL - Completed: 04/01/2022 15:03 [facility]: [facility] [place], [place] [address] PACS BRIDGE BUILDER REPORT Patient Name: DAILY NEVILLE MRN: Sex: : Age: [id number] F [id number] 66 Account: Accession: Admit: StayType: [id number] 04/01/2022 O/P Ordered: Order ID: Submitted: Ordering Provider: 04/01/2022 14:53 [id number] [facility] SONDRA LALA Completed: Technologist: Resulted: 04/01/2022 15:03 MLL 04/01/2022 15:08 Study Description: XR CHEST 2V PA AND LATERAL Study Reason: Dyspnea Technique: 2D digital imaging was performed of the chest. 2 images were obtained. Comparison: Comparison is 04/19/2019. FINDINGS: MEDIASTINUM: Normal. HEART: Normal. PULMONARY VASCULATURE: Normal. LUNGS: Clear. PLEURAL SPACE: No pleural effusion or pneumothorax. BONE:Within normal limits for the patient's age. OTHER FINDINGS:Normal. IMPRESSION: No acute pulmonary findings. Report Digitally Signed by Meliton Bird on 04/01/2022 03:08 PM EST Social History Type Status Start Date End Date Code Code Syst em Smoking History Current every day smoker 660040373 SNOMED CT Sex Female Medications Medication Start Date End Date Route Frequency Dose Code Code System Medication Instructions Home Meds Cyclobenzaprine 10MG Oral Tablet 03/04/2017 09/21/2023 ORAL THREE TIMES A DAY 10 MILLIGRAMS 642457 RxNorm TAKE 10 MILLIGRAMS ORAL THREE TIMES A DAY Cymbalta 60MG Oral Capsule, Delayed Release 03/04/2017 09/21/2023 ORAL DAILY 60 MILLIGRAMS 532376 RxNorm TAKE 60 MILLIGRAMS ORAL DAILY Magnesium 500 MG Oral Tablet 03/04/2017 Unknown ORAL DAILY 500 MILLIGRAMS 837779 RxNorm TAKE 500 MILLIGRAMS ORAL DAILY Cyanocobalamin 1000MCG/1ML Injection Solution 03/21/2018 Unknown INTRA MUSCU LAR MONTHL Y 1 MILLILITERS 155757 RxNorm INJECT 1 MILLILITERS INTRAMUSCUL AR MONTHLY Estradiol 0.5MG Oral Tablet 03/21/2018 09/21/2023 ORAL DAILY 0.5 MILLIGRAMS 201230 RxNorm TAKE 0.5 MILLIGRAMS ORAL DAILY Metoprolol Succinate 25MG Oral Tablet, Extended Release 03/21/2018 Unknown ORAL DAILY 1 TABLET 731042 RxNorm LISA E 1 TABLET ORAL DAILY Sodium Bicarbonate 650MG Oral Tablet 03/21/2018 09/21/2023 ORAL THREE TIMES A DAY 1950 MILLIGRAMS 789913 RxNorm TAKE 1950 MILLIGRAMS ORAL THREE TIMES A DAY Potassium Chloride 20MEQ Oral Tablet, Extended Release 06/05/2018 09/21/2023 ORAL TWICE A DAY 20 MEQ 9047098 RxNorm TAKE 20 MEQ ORAL TWICE A DAY Magnesium 500 MG Oral Tablet 09/12/2018 09/21/2023 ORAL DAILY 1000 MG 744835 RxNorm TAKE 1 000 MG ORAL DAILY Vitamin D2 2000 IU Oral Tablet 09/12/2018 09/21/2023 ORAL WEEKLY 1 TABLET RxNorm TA KE 1 TABLET ORAL WEEKLY Acetaminophen 325MG Oral Tablet 09/25/2023 Unknown ORAL EVERY 6 HOURS 975 MILLIGRAMS 184280 RxNorm TAKE 975 MILLIGRAMS ORAL EVERY 6 HOURS Amitriptyline 10MG Oral Tablet 09/25/2023 Unknown ORAL EVERY EVENIN G 20 MILLIGRAMS 499860 RxNorm TAKE 20 MILLIGRAMS ORAL EVERY EVENING Cyclobenzaprine 10MG Oral Tablet 09/25/2023 Unknown ORAL THREE TIMES A DAY 5 MILLIGRAMS 011551 RxNorm TAKE 5 MILLIGRAMS ORAL THREE TIMES A DAY DULoxetine HCl 30MG Oral Capsule, Delayed Release 09/25/2023 Unknown ORAL DAILY 30 MILLIGRAMS 827937 RxNorm TAKE 30 MILLIGRAMS ORAL DAILY Estradiol 0.5MG Oral Tablet 09/25/2023 Unknown ORAL DAILY 0.5 TABLET 280774 RxNorm TAKE 0 .5 TABLET ORAL DAILY Fluticasone Propionate 0.05MG/1Actuatio n Nasal [place] 09/25/2023 Unknown NASAL TWICE A DAY 1 unit(s) 9976955 RxNorm SPRAY 1 EACH NASAL TWICE A DAY Folic Acid 1MG Oral Tablet 09/25/2023 Unknown ORAL DAILY 1 MILLIGRAMS 840996 RxNorm TAKE 1 MILLIGRAMS ORAL DAILY Loperamide 2 MG Oral Tablet 09/25/2023 Unknown ORAL NEEDED DAILY RxNorm TAKE 1-2 CAPSULE ORAL NEEDED DAILY Nicotine 21MG/24HR Transdermal Patch, Extended Release 09/25/2023 Unknown TRANS DERMA L DAILY 1 unit(s) 839459 RxNorm APPLY 1 EACH TRANSDERMAL DAILY Nicotine 4 MG Oromucosal Gum 09/25/2023 Unknown OROMU COSAL 4 MG 775867 RxNorm 4 MG OROMUCOSAL Ondansetron HCl 4MG Oral Tablet 09/25/2023 Unknown ORAL NEEDED DAILY 4 MILLIGRAMS 255250 RxNorm TAKE 4 MILLIGRAMS ORAL NEEDED DAILY Potassium Chloride 10MEQ Oral Capsule, Extended Release 09/25/2023 Unknown ORAL DAILY 20 MEQ 186621 RxNorm TAKE 20 MEQ ORAL DAILY Sodium Bicarbonate 650MG Oral Tablet 09/25/2023 Unknown ORAL 650 MILLIGRAMS 080916 RxNorm TAKE 650 MILLIGRAMS ORAL Vitamin D3 25MCG Oral Capsule, Liquid Filled 09/25/2023 Unknown ORAL DAILY 25 MCG RxNorm TAKE 25 MCG ORAL DAILY busPIRone 10MG Oral Tablet 09/25/2023 Unknown ORAL TWICE A DAY 10 MILLIGRAMS 683889 RxNorm TAKE 10 MILLIGRAMS ORAL TWICE A [...] Code System ACUTE INJURY OF KIDNEY active 0137075 0364853397 SNOMED-CT DEHYDRATION active 29444925 SNOMED-C T NAUSEA WITH VOMITING active 77821696 SNOMED-CT CROHN'S DISEASE W/ COMPLICATION active 8470604729779785 SNOMED-CT NICOTINE DEPENDENCE active 55708576 SNOMED-CT OPEN WOUND active 278919677 SNOMED-CT CROHNS active 00622099 SNOMED-CT FIBROMYALGIA active 963855156 SNOMED- CT PANCREATITIS active 31975068 SNOMED- CT ALTERED MENTAL STATUS active 20397902 4 SNOMED-CT Allergies and Adverse Reactions Allergy Substance Reaction Severity Start Date Concern Status Code Code System NSAID CKD (SNOMED-CT: null) Active 93583839 SNOMED-CT CHANTIX SEIZURE (SNOMED-CT: null) Active 267411 RxNorm VARENICLINE SEIZURE (SNOMED-CT: null) Active 551087 RxNorm Plan of Treatment LAB DRAW 15MIN [...] Diagnosis Start Date Code Code Sys tem Other specified cough 04/01/2022 SNOMED -CT Personal Care Team Section Performer Name Performer Role Active Date Inactive Da te
--- OUTSIDE RECORDS SUMMARY | 2024-03-17 12:10 | XMS_ITS ---
Author Organization Unknown Address [address] [place] [address] [phone] Phone Care Team Providers Care Solid Waste Truck Driver Name Role Phone CARMELLACHILOMARGARET Parker Attending Unavailable MAYCO Urias Primary Unavailable Results COMPREHENSIVE METABOLIC AGNES [place] (CMP) - Collect Date/Time: 07/08/2022 14:51 [facility] ID: [id number] - [id number] [address] [place], [place], [address] LOINC: 38002-6 Test Value Unit Reference Range Code Code System Flag GLUCOSE 94 mg/dL L=70 H=116 2345-7 LOINC BUN 33 mg/dL L=6 H=25 3094-0 LOINC H CREATININE 1.78 mg/dL L=0.51 H=0.95 2160-0 LOINC H SODIUM SERUM 142 mmol/L L=136 H=145 2951-2 LOINC POTASSIUM SERUM 4.1 mmol/L L=3.4 H=5.2 2823-3 LOINC CHLORIDE SERUM 105 mmol/L L=96 H=110 2075-0 LOINC CARBON DIOXIDE (CO2) 29 mmol/L L=22 H=34 2028-9 LOINC ANION GAP 8.0 mmol/L 60713-8 LOINC CALCIUM SERUM 9.0 mg/dL L=8.2 H=10.2 64031-6 LOINC BILIRUBIN TOTAL 0.2 mg/dL L=0.0 H=1.3 1975-2 LOINC ALK. PHOS. 144 U/L L=46 H=116 6768-6 LOINC H SGOT (AST) 31 U/L L=15 H=37 1920-8 LOINC SGPT (ALT) 40 U/L L=12 H=78 1742-6 LOINC TOTAL PROTEIN 7.3 gm/dL L=6.0 H=8.0 2885-2 [facility] ALBUMIN 3.5 gm/dL L=3.4 H=5.0 1751-7 [facility] AGE 66 years eGFR (non-Afr.Amer.) 29 mL/min 41500-9 [facility] eGFR (Afr-Kosovan) 35 mL/min 36046-1 [facility] Social History Type Status Start Date End Date Code Code Syst em Smoking History Current every day smoker [id number] SNOMED CT Sex Female Medications Medication Start Date End Date Route Frequency Dose Code Code System Medication Instructions Home Meds Cyclobenzaprine 10MG Oral Tablet 03/04/2017 09/21/2023 ORAL THREE TIMES A DAY 10 MILLIGRAMS 502874 RxNorm TAKE 10 MILLIGRAMS ORAL THREE TIMES A DAY Cymbalta 60MG Oral Capsule, Delayed Release 03/04/2017 09/21/2023 ORAL DAILY 60 MILLIGRAMS 453567 RxNorm TAKE 60 MILLIGRAMS ORAL DAILY Magnesium 500 MG Oral Tablet 03/04/2017 Unknown ORAL DAILY 500 MILLIGRAMS 417049 RxNorm TAKE 500 MILLIGRAMS ORAL DAILY Cyanocobalamin 1000MCG/1ML Injection Solution 03/21/2018 Unknown INTRA MUSCU LAR MONTHL Y 1 MILLILITERS 936579 RxNorm INJECT 1 MILLILITERS INTRAMUSCUL AR MONTHLY Estradiol 0.5MG Oral Tablet 03/21/2018 09/21/2023 ORAL DAILY 0.5 MILLIGRAMS 928411 RxNorm TAKE 0.5 MILLIGRAMS ORAL DAILY Metoprolol Succinate 25MG Oral Tablet, Extended Release 03/21/2018 Unknown ORAL DAILY 1 TABLET 710913 RxNorm LISA E 1 TABLET ORAL DAILY Sodium Bicarbonate 650MG Oral Tablet 03/21/2018 09/21/2023 ORAL THREE TIMES A DAY 1950 MILLIGRAMS 705965 RxNorm TAKE 1950 MILLIGRAMS ORAL THREE TIMES A DAY Potassium Chloride 20MEQ Oral Tablet, Extended Release 06/05/2018 09/21/2023 ORAL TWICE A DAY 20 MEQ 8264121 RxNorm TAKE 20 MEQ ORAL TWICE A DAY Magnesium 500 MG Oral Tablet 09/12/2018 09/21/2023 ORAL DAILY 1000 MG 489440 RxNorm TAKE 1 000 MG ORAL DAILY Vitamin D2 2000 IU Oral Tablet 09/12/2018 09/21/2023 ORAL WEEKLY 1 TABLET RxNorm TA KE 1 TABLET ORAL WEEKLY Acetaminophen 325MG Oral Tablet 09/25/2023 Unknown ORAL EVERY 6 HOURS 975 MILLIGRAMS 538738 RxNorm TAKE 975 MILLIGRAMS ORAL EVERY 6 HOURS Amitriptyline 10MG Oral Tablet 09/25/2023 Unknown ORAL EVERY EVENIN G 20 MILLIGRAMS 412024 RxNorm TAKE 20 MILLIGRAMS ORAL EVERY EVENING Cyclobenzaprine 10MG Oral Tablet 09/25/2023 Unknown ORAL THREE TIMES A DAY 5 MILLIGRAMS 271070 RxNorm TAKE 5 MILLIGRAMS ORAL THREE TIMES A DAY DULoxetine HCl 30MG Oral Capsule, Delayed Release 09/25/2023 Unknown ORAL DAILY 30 MILLIGRAMS 735623 RxNorm TAKE 30 MILLIGRAMS ORAL DAILY Estradiol 0.5MG Oral Tablet 09/25/2023 Unknown ORAL DAILY 0.5 TABLET 123556 RxNorm TAKE 0 .5 TABLET ORAL DAILY Fluticasone Propionate 0.05MG/1Actuatio n Nasal [place] 09/25/2023 Unknown NASAL TWICE A DAY 1 unit(s) 8153612 RxNorm SPRAY 1 EACH NASAL TWICE A DAY Folic Acid 1MG Oral Tablet 09/25/2023 Unknown ORAL DAILY 1 MILLIGRAMS 998904 RxNorm TAKE 1 MILLIGRAMS ORAL DAILY Loperamide 2 MG Oral Tablet 09/25/2023 Unknown ORAL NEEDED DAILY RxNorm TAKE 1-2 CAPSULE ORAL NEEDED DAILY Nicotine 21MG/24HR Transdermal Patch, Extended Release 09/25/2023 Unknown TRANS DERMA L DAILY 1 unit(s) 307248 RxNorm APPLY 1 EACH TRANSDERMAL DAILY Nicotine 4 MG Oromucosal Gum 09/25/2023 Unknown OROMU COSAL 4 MG 588945 RxNorm 4 MG OROMUCOSAL Ondansetron HCl 4MG Oral Tablet 09/25/2023 Unknown ORAL NEEDED DAILY 4 MILLIGRAMS 567376 RxNorm TAKE 4 MILLIGRAMS ORAL NEEDED DAILY Potassium Chloride 10MEQ Oral Capsule, Extended Release 09/25/2023 Unknown ORAL DAILY 20 MEQ 801160 RxNorm TAKE 20 MEQ ORAL DAILY Sodium Bicarbonate 650MG Oral Tablet 09/25/2023 Unknown ORAL 650 MILLIGRAMS 462052 RxNorm TAKE 650 MILLIGRAMS ORAL Vitamin D3 25MCG Oral Capsule, Liquid Filled 09/25/2023 Unknown ORAL DAILY 25 MCG RxNorm TAKE 25 MCG ORAL DAILY busPIRone 10MG Oral Tablet 09/25/2023 Unknown ORAL TWICE A DAY 10 MILLIGRAMS 838861 RxNorm TAKE 10 MILLIGRAMS ORAL TWICE A [...] Code System ACUTE INJURY OF KIDNEY active 0449782 [id number] SNOMED-CT DEHYDRATION active 45341700 SNOMED-C T NAUSEA WITH VOMITING active 10984680 SNOMED-CT CROHN'S DISEASE W/ COMPLICATION active 9525019757560981 SNOMED-CT NICOTINE DEPENDENCE active 28144630 SNOMED-CT OPEN WOUND active 299228426 SNOMED-CT CROHNS active 45561301 SNOMED-CT FIBROMYALGIA active 983802733 SNOMED- CT PANCREATITIS active 57139395 SNOMED- CT ALTERED MENTAL STATUS active 53525753 4 SNOMED-CT Allergies and Adverse Reactions Allergy Substance Reaction Severity Start Date Concern Status Code Code System NSAID CKD (SNOMED-CT: null) Active 96271169 SNOMED-CT CHANTIX SEIZURE (SNOMED-CT: null) Active 679767 RxNorm VARENICLINE SEIZURE (SNOMED-CT: null) Active 031173 RxNorm Plan of Treatment LAB DRAW 15MIN [...] Diagnosis Start Date Code Code Sys tem Acute kidney failure, unspecified 07/08/2022 SNOMED-CT Personal Care Team Section Performer Name Performer Role Active Date Inactive Da te
--- OUTSIDE RECORDS SUMMARY | 2024-03-17 12:10 | XMS_ITS ---
Author Organization Unknown Address [address] [place] [address] [phone] Phone Care Team Providers Care Prep Cook Name Role Phone SPIKE Becerra Attending Unavailable Results CT FACIAL OR SINUS WO CONTRA ST - Completed: 04/17/2022 13:05 [facility] [place], [place] [address] PACS LEAD SOFTWARE ARCHITECT REPORT Patient Name: DAILY NEVILLE MRN: Sex: : Age: [id number] F 1955 66 Account: Accession: Admit: StayType: [id number] 04/17/2022 O/P Ordered: Order ID: Submitted: Ordering Provider: 04/17/2022 12:52 [id number] [facility] SONDRA LALA Completed: Technologist: Resulted: 04/17/2022 13:05 BSK 04/17/2022 13:40 Study Description: CT FACIAL OR SINUS WO CONTRAST Study Reason: NASAL SINUS CONGESTION Technique: Imaging Protocol: Axial computed tomography images with coronal and sagittal reformatted images were created and reviewed. Comparison: None. FINDINGS: CT Face: Facial Bones: No definite fracture is noted in facial bones. Sinuses and Mastoids: There is mild mucosal thickening in the maxillary sinuses bilaterally. The sphenoid sinuses, ethmoid air cells and frontal sinuses are all clear. No fluid levels are present. The mastoid air cells are well pneumatized. The ostiomeatal complexes are unremarkable. The turbinates are unremarkable. Globes, extraocular muscles, optic nerves and retrobulbar fat: Normal. Upper aerodigestive tract: Normal. Mandible and bilateral temporomandibular joints: Normal. Soft tissues: Normal. IMPRESSION: Mild mucosal thickening in the maxillary sinuses. The remaining visualized paranasal sinuses are clear. Radiation Optimization: All CT scans at this facility use at least one of these dose optimization techniques: automated exposure control; mA and/or kV adjustment per patient size (includes targeted exams where dose is matched to clinical indication); or iterative reconstruction. Report Digitally Signed by Meliton Bird on 04/17/2022 01:40 PM EST US ABD LIMITED ONE ORGAN - C ompleted: 04/17/2022 13:16 LOINC: [facility] [place], [place] [address] PACS LEAD SOFTWARE ARCHITECT REPORT Patient Name: DAILY NEVILLE MRN: Sex: : Age: [id number] F 1955 66 Account: Accession: Admit: StayType: [id number] 04/17/2022 O/P Ordered: Order ID: Submitted: Ordering Provider: 04/17/2022 12:53 [id number] SONDRA MERIDA Completed: Technologist: Resulted: 04/17/2022 13:16 GVS 04/17/2022 13:47 Study Description: US ABD LIMITED ONE ORGAN Study Reason: ELEVATED LFTS Technique: Ultrasound of the abdomen was performed using protocol. Comparison: Comparison is made with prior examinations. FINDINGS: PANCREAS: Normal where visualized. LIVER: Normal. Hepatopedal flow in the Portal Vein. The liver measures 13.9 cm in length. GALLBLADDER: No stones are seen. There is gallbladder sludge present. No evidence of wall thickening. No pericholecystic fluid identified. BILIARY SYSTEM: Common bile duct measures < 7 mm. No intrahepatic biliary ductal dilation. HANSON'S SIGN: Negative. RIGHT KIDNEY: Kidney is normal in size. There are echogenic areas seen in the kidney suggestive of medullary nephrocalcinosis. No evidence of hydronephrosis. There are again seen simple right renal cysts. The largest measures 1.2 x 1.4 x 1.2 cm ASCITES: None seen. ABDOMINAL AORTA AND IVC: Visualized portions normal caliber. IMPRESSION: 1. Gallbladder sludge, medullary nephrocalcinosis and right renal cysts are again noted. Report Digitally Signed by Meliton Bird on 04/17/2022 01:47 PM EST Social History Type Status Start Date End Date Code Code Syst em Smoking History Current every day smoker [id number] SNOMED CT Sex Female Medications Medication Start Date End Date Route Frequency Dose Code Code System Medication Instructions Home Meds Cyclobenzaprine 10MG Oral Tablet 03/04/2017 09/21/2023 ORAL THREE TIMES A DAY 10 MILLIGRAMS 244396 RxNorm TAKE 10 MILLIGRAMS ORAL THREE TIMES A DAY Cymbalta 60MG Oral Capsule, Delayed Release 03/04/2017 09/21/2023 ORAL DAILY 60 MILLIGRAMS 631658 RxNorm TAKE 60 MILLIGRAMS ORAL DAILY Magnesium 500 MG Oral Tablet 03/04/2017 Unknown ORAL DAILY 500 MILLIGRAMS 384419 RxNorm TAKE 500 MILLIGRAMS ORAL DAILY Cyanocobalamin 1000MCG/1ML Injection Solution 03/21/2018 Unknown INTRA MUSCU LAR MONTHL Y 1 MILLILITERS 934917 RxNorm INJECT 1 MILLILITERS INTRAMUSCUL AR MONTHLY Estradiol 0.5MG Oral Tablet 03/21/2018 09/21/2023 ORAL DAILY 0.5 MILLIGRAMS 389471 RxNorm TAKE 0.5 MILLIGRAMS ORAL DAILY Metoprolol Succinate 25MG Oral Tablet, Extended Release 03/21/2018 Unknown ORAL DAILY 1 TABLET 844782 RxNorm LISA E 1 TABLET ORAL DAILY Sodium Bicarbonate 650MG Oral Tablet 03/21/2018 09/21/2023 ORAL THREE TIMES A DAY 1950 MILLIGRAMS 658113 RxNorm TAKE 1950 MILLIGRAMS ORAL THREE TIMES A DAY Potassium Chloride 20MEQ Oral Tablet, Extended Release 06/05/2018 09/21/2023 ORAL TWICE A DAY 20 MEQ 3457249 RxNorm TAKE 20 MEQ ORAL TWICE A DAY Magnesium 500 MG Oral Tablet 09/12/2018 09/21/2023 ORAL DAILY 1000 MG 411195 RxNorm TAKE 1 000 MG ORAL DAILY Vitamin D2 2000 IU Oral Tablet 09/12/2018 09/21/2023 ORAL WEEKLY 1 TABLET RxNorm TA KE 1 TABLET ORAL WEEKLY Acetaminophen 325MG Oral Tablet 09/25/2023 Unknown ORAL EVERY 6 HOURS 975 MILLIGRAMS 074104 RxNorm TAKE 975 MILLIGRAMS ORAL EVERY 6 HOURS Amitriptyline 10MG Oral Tablet 09/25/2023 Unknown ORAL EVERY EVENIN G 20 MILLIGRAMS 168500 RxNorm TAKE 20 MILLIGRAMS ORAL EVERY EVENING Cyclobenzaprine 10MG Oral Tablet 09/25/2023 Unknown ORAL THREE TIMES A DAY 5 MILLIGRAMS 222063 RxNorm TAKE 5 MILLIGRAMS ORAL THREE TIMES A DAY DULoxetine HCl 30MG Oral Capsule, Delayed Release 09/25/2023 Unknown ORAL DAILY 30 MILLIGRAMS 529694 RxNorm TAKE 30 MILLIGRAMS ORAL DAILY Estradiol 0.5MG Oral Tablet 09/25/2023 Unknown ORAL DAILY 0.5 TABLET 203583 RxNorm TAKE 0 .5 TABLET ORAL DAILY Fluticasone Propionate 0.05MG/1Actuatio n Nasal [place] 09/25/2023 Unknown NASAL TWICE A DAY 1 unit(s) 0031667 RxNorm SPRAY 1 EACH NASAL TWICE A DAY Folic Acid 1MG Oral Tablet 09/25/2023 Unknown ORAL DAILY 1 MILLIGRAMS 739100 RxNorm TAKE 1 MILLIGRAMS ORAL DAILY Loperamide 2 MG Oral Tablet 09/25/2023 Unknown ORAL NEEDED DAILY RxNorm TAKE 1-2 CAPSULE ORAL NEEDED DAILY Nicotine 21MG/24HR Transdermal Patch, Extended Release 09/25/2023 Unknown TRANS DERMA L DAILY 1 unit(s) RxNorm APPLY 1 EACH TRANSDERMAL DAILY Nicotine 4 MG Oromucosal Gum 09/25/2023 Unknown OROMU COSAL 4 MG 509807 RxNorm 4 MG OROMUCOSAL Ondansetron HCl 4MG Oral Tablet 09/25/2023 Unknown ORAL NEEDED DAILY 4 MILLIGRAMS 19790716 RxNorm TAKE 4 MILLIGRAMS ORAL NEEDED DAILY Potassium Chloride 10MEQ Oral Capsule, Extended Release 09/25/2023 Unknown ORAL DAILY 20 MEQ 605646 RxNorm TAKE 20 MEQ ORAL DAILY Sodium Bicarbonate 650MG Oral Tablet 09/25/2023 Unknown ORAL 650 MILLIGRAMS 19870815 RxNorm TAKE 650 MILLIGRAMS ORAL Vitamin D3 25MCG Oral Capsule, Liquid Filled 09/25/2023 Unknown ORAL DAILY 25 MCG RxNorm TAKE 25 MCG ORAL DAILY busPIRone 10MG Oral Tablet 09/25/2023 Unknown ORAL TWICE A DAY 10 MILLIGRAMS 178472 RxNorm TAKE 10 MILLIGRAMS ORAL TWICE A [...] Code System ACUTE INJURY OF KIDNEY active 2696085 7455755894 SNOMED-CT DEHYDRATION active 15088601 SNOMED-C T NAUSEA WITH VOMITING active 25633148 SNOMED-CT CROHN'S DISEASE W/ COMPLICATION active 6159264397086793 SNOMED-CT NICOTINE DEPENDENCE active 27805425 SNOMED-CT OPEN WOUND active 647565650 SNOMED-CT CROHNS active 91956118 SNOMED-CT FIBROMYALGIA active 732670169 SNOMED- CT PANCREATITIS active 68270853 SNOMED- CT ALTERED MENTAL STATUS active 17023690 4 SNOMED-CT Allergies and Adverse Reactions Allergy Substance Reaction Severity Start Date Concern Status Code Code System NSAID CKD (SNOMED-CT: null) Active 57162228 SNOMED-CT CHANTIX SEIZURE (SNOMED-CT: null) Active 113636 RxNorm VARENICLINE SEIZURE (SNOMED-CT: null) Active 433645 RxNorm Plan of Treatment LAB DRAW 15MIN [...] Date Code Code Sys tem Other specified disorders of kidney and ureter 023 SNOMED-CT Personal Care Team Section Performer Name Performer Role Active Date Inactive Da te
--- OUTSIDE RECORDS SUMMARY | 2024-03-17 12:10 | XMS_ITS ---
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 Name Role Phone MAYCO Urias Attending Unavailable Results XR CHEST 2V PA AND LATERAL - Completed: 09/05/2022 10:58 [facility] [place], [place] [address] PACS GROUP MANAGING DIRECTOR REPORT Patient Name: DAILY NEVILLE MRN: Sex: : Age: [id number] F 1955 66 Account: Accession: Admit: StayType: [id number] 09/05/2022 O/P Ordered: Order ID: Submitted: Ordering Provider: 09/05/2022 10:48 [id number] KT ZANDRA MAO Completed: Technologist: Resulted: 09/05/2022 10:58 KVK 09/05/2022 11:28 Study Description: XR CHEST 2V PA AND LATERAL Study Reason: RALES 2 Views TECHNIQUE: 2D digital imaging was performed. COMPARISON: 01 April 2022 FINDINGS: The heart size is normal. The lungs are again noted to be hyperinflated. No infiltrate, effusion or pneumothorax is seen. No bony abnormalities are identified. Impression: No acute abnormality. Report Digitally Signed by Karlie Shepherd on 09/05/2022 11:28 AM EDT Social History Type Status Start Date End Date Code Code Syst em Smoking History Current every day smoker 037125933 SNOMED CT Sex Female Medications Medication Start Date End Date Route Frequency Dose Code Code System Medication Instructions Home Meds Cyclobenzaprine 10MG Oral Tablet 03/04/2017 09/21/2023 ORAL THREE TIMES A DAY 10 MILLIGRAMS 882442 RxNorm TAKE 10 MILLIGRAMS ORAL THREE TIMES A DAY Cymbalta 60MG Oral Capsule, Delayed Release 03/04/2017 09/21/2023 ORAL DAILY 60 MILLIGRAMS 010543 RxNorm TAKE 60 MILLIGRAMS ORAL DAILY Magnesium 500 MG Oral Tablet 03/04/2017 Unknown ORAL DAILY 500 MILLIGRAMS 984466 RxNorm TAKE 500 MILLIGRAMS ORAL DAILY Cyanocobalamin 1000MCG/1ML Injection Solution 03/21/2018 Unknown INTRA MUSCU LAR MONTHL Y 1 MILLILITERS 004682 RxNorm INJECT 1 MILLILITERS INTRAMUSCUL AR MONTHLY Estradiol 0.5MG Oral Tablet 03/21/2018 09/21/2023 ORAL DAILY 0.5 MILLIGRAMS 020825 RxNorm TAKE 0.5 MILLIGRAMS ORAL DAILY Metoprolol Succinate 25MG Oral Tablet, Extended Release 03/21/2018 Unknown ORAL DAILY 1 TABLET 610646 RxNorm LISA E 1 TABLET ORAL DAILY Sodium Bicarbonate 650MG Oral Tablet 03/21/2018 09/21/2023 ORAL THREE TIMES A DAY 1950 MILLIGRAMS 680747 RxNorm TAKE 1950 MILLIGRAMS ORAL THREE TIMES A DAY Potassium Chloride 20MEQ Oral Tablet, Extended Release 06/05/2018 09/21/2023 ORAL TWICE A DAY 20 MEQ 4963349 RxNorm TAKE 20 MEQ ORAL TWICE A DAY Magnesium 500 MG Oral Tablet 09/12/2018 09/21/2023 ORAL DAILY 1000 MG 460508 RxNorm TAKE 1 000 MG ORAL DAILY Vitamin D2 2000 IU Oral Tablet 09/12/2018 09/21/2023 ORAL WEEKLY 1 TABLET RxNorm TA KE 1 TABLET ORAL WEEKLY Acetaminophen 325MG Oral Tablet 09/25/2023 Unknown ORAL EVERY 6 HOURS 975 MILLIGRAMS 487565 RxNorm TAKE 975 MILLIGRAMS ORAL EVERY 6 HOURS Amitriptyline 10MG Oral Tablet 09/25/2023 Unknown ORAL EVERY EVENIN G 20 MILLIGRAMS 954060 RxNorm TAKE 20 MILLIGRAMS ORAL EVERY EVENING Cyclobenzaprine 10MG Oral Tablet 09/25/2023 Unknown ORAL THREE TIMES A DAY 5 MILLIGRAMS 054808 RxNorm TAKE 5 MILLIGRAMS ORAL THREE TIMES A DAY DULoxetine HCl 30MG Oral Capsule, Delayed Release 09/25/2023 Unknown ORAL DAILY 30 MILLIGRAMS 585018 RxNorm TAKE 30 MILLIGRAMS ORAL DAILY Estradiol 0.5MG Oral Tablet 09/25/2023 Unknown ORAL DAILY 0.5 TABLET 19750721 RxNorm TAKE 0 .5 TABLET ORAL DAILY Fluticasone Propionate 0.05MG/1Actuatio n Nasal [place] 09/25/2023 Unknown NASAL TWICE A DAY 1 unit(s) 3178591 RxNorm SPRAY 1 EACH NASAL TWICE A DAY Folic Acid 1MG Oral Tablet 09/25/2023 Unknown ORAL DAILY 1 MILLIGRAMS 894568 RxNorm TAKE 1 MILLIGRAMS ORAL DAILY Loperamide 2 MG Oral Tablet 09/25/2023 Unknown ORAL NEEDED DAILY RxNorm TAKE 1-2 CAPSULE ORAL NEEDED DAILY Nicotine 21MG/24HR Transdermal Patch, Extended Release 09/25/2023 Unknown TRANS DERMA L DAILY 1 unit(s) 588187 RxNorm APPLY 1 EACH TRANSDERMAL DAILY Nicotine 4 MG Oromucosal Gum 09/25/2023 Unknown OROMU COSAL 4 MG 481219 RxNorm 4 MG OROMUCOSAL Ondansetron HCl 4MG Oral Tablet 09/25/2023 Unknown ORAL NEEDED DAILY 4 MILLIGRAMS 857937 RxNorm TAKE 4 MILLIGRAMS ORAL NEEDED DAILY Potassium Chloride 10MEQ Oral Capsule, Extended Release 09/25/2023 Unknown ORAL DAILY 20 MEQ 322682 RxNorm TAKE 20 MEQ ORAL DAILY Sodium Bicarbonate 650MG Oral Tablet 09/25/2023 Unknown ORAL 650 MILLIGRAMS 578377 RxNorm TAKE 650 MILLIGRAMS ORAL Vitamin D3 25MCG Oral Capsule, Liquid Filled 09/25/2023 Unknown ORAL DAILY 25 MCG RxNorm TAKE 25 MCG ORAL DAILY busPIRone 10MG Oral Tablet 09/25/2023 Unknown ORAL TWICE A DAY 10 MILLIGRAMS 550049 RxNorm TAKE 10 MILLIGRAMS ORAL TWICE A [...] Code System ACUTE INJURY OF KIDNEY active 3769918 3897030686 SNOMED-CT DEHYDRATION active 31580899 SNOMED-C T NAUSEA WITH VOMITING active 59015765 SNOMED-CT CROHN'S DISEASE W/ COMPLICATION active 3344347044098627 SNOMED-CT NICOTINE DEPENDENCE active 01833989 SNOMED-CT OPEN WOUND active 656238660 SNOMED-CT CROHNS active 75117891 SNOMED-CT FIBROMYALGIA active 960344045 SNOMED- CT PANCREATITIS active 80667019 SNOMED- CT ALTERED MENTAL STATUS active 39652797 4 SNOMED-CT Allergies and Adverse Reactions Allergy Substance Reaction Severity Start Date Concern Status Code Code System NSAID CKD (SNOMED-CT: null) Active 08021503 SNOMED-CT CHANTIX SEIZURE (SNOMED-CT: null) Active 431916 RxNorm VARENICLINE SEIZURE (SNOMED-CT: null) Active 379677 RxNorm Plan of Treatment LAB DRAW 15MIN [...] Diagnosis Start Date Code Code Sys tem Respiratory symptom 09/05/2022 774988236 SNOMED-C T Personal Care Team Section Performer Name Performer Role Active Date Inactive Da te
--- OUTSIDE RECORDS SUMMARY | 2024-03-17 12:11 | XMS_ITS ---
Author Organization Unknown Address [address], [place] [id number] Phone Care Team Providers Care Planning Advisor Name Role Phone HAZEL Parker Attending Unavailable MAYCO Urias Primary Unavailable Results COMPREHENSIVE METABOLIC AGNES Vail (CMP) - Collect Date/Time: 01/07/2023 09:42 [facility] ID: [id number] - [id number] [address] [place], [place], [address] LOINC: 20727-2 Test Value Unit Reference Range Code Code System Flag GLUCOSE 66 mg/dL L=70 H=116 2345-7 LOINC L BUN 37 mg/dL L=6 H=25 3094-0 LOINC H CREATININE 1.71 mg/dL L=0.51 H=0.95 2160-0 LOINC H SODIUM SERUM 141 mmol/L L=136 H=145 2951-2 LOINC POTASSIUM SERUM 4.6 mmol/L L=3.4 H=5.2 2823-3 LOINC CHLORIDE SERUM 104 mmol/L L=96 H=110 2075-0 LOINC CARBON DIOXIDE (CO2) 30 mmol/L L=22 H=34 2028-9 LOINC ANION GAP 7.1 mmol/L 73663-3 LOINC CALCIUM SERUM 9.5 mg/dL L=8.2 H=10.2 14618-0 LOINC BILIRUBIN TOTAL 0.3 mg/dL L=0.0 H=1.3 1975-2 LOINC ALK. PHOS. 128 U/L L=46 H=116 6768-6 LOINC H SGOT (AST) 27 U/L L=15 H=37 1920-8 LOINC SGPT (ALT) 29 U/L L=12 H=78 1742-6 LOINC TOTAL PROTEIN 7.9 gm/dL L=6.0 H=8.0 2885-2 [facility] ALBUMIN 3.4 gm/dL L=3.4 H=5.0 1751-7 [facility] AGE 67 years eGFR (non-Afr.Amer.) 30 mL/min 22585-0 [facility] eGFR (Afr-Bolivian) 36 mL/min 67955-9 [facility] Social History Type Status Start Date End Date Code Code Syst em Smoking History Current every day smoker 119269720 SNOMED CT Sex Female Medications Medication Start Date End Date Route Frequency Dose Code Code System Medication Instructions Home Meds Cyclobenzaprine 10MG Oral Tablet 03/04/2017 09/21/2023 ORAL THREE TIMES A DAY 10 MILLIGRAMS 671407 RxNorm TAKE 10 MILLIGRAMS ORAL THREE TIMES A DAY Cymbalta 60MG Oral Capsule, Delayed Release 03/04/2017 09/21/2023 ORAL DAILY 60 MILLIGRAMS 913422 RxNorm TAKE 60 MILLIGRAMS ORAL DAILY Magnesium 500 MG Oral Tablet 03/04/2017 Unknown ORAL DAILY 500 MILLIGRAMS 128210 RxNorm TAKE 500 MILLIGRAMS ORAL DAILY Cyanocobalamin 1000MCG/1ML Injection Solution 03/21/2018 Unknown INTRA MUSCU LAR MONTHL Y 1 MILLILITERS 790853 RxNorm INJECT 1 MILLILITERS INTRAMUSCUL AR MONTHLY Estradiol 0.5MG Oral Tablet 03/21/2018 09/21/2023 ORAL DAILY 0.5 MILLIGRAMS 804832 RxNorm TAKE 0.5 MILLIGRAMS ORAL DAILY Metoprolol Succinate 25MG Oral Tablet, Extended Release 03/21/2018 Unknown ORAL DAILY 1 TABLET 569938 RxNorm LISA E 1 TABLET ORAL DAILY Sodium Bicarbonate 650MG Oral Tablet 03/21/2018 09/21/2023 ORAL THREE TIMES A DAY 1950 MILLIGRAMS 243995 RxNorm TAKE 1950 MILLIGRAMS ORAL THREE TIMES A DAY Potassium Chloride 20MEQ Oral Tablet, Extended Release 06/05/2018 09/21/2023 ORAL TWICE A DAY 20 MEQ 7936584 RxNorm TAKE 20 MEQ ORAL TWICE A DAY Magnesium 500 MG Oral Tablet 09/12/2018 09/21/2023 ORAL DAILY 1000 MG 948869 RxNorm TAKE 1 000 MG ORAL DAILY Vitamin D2 2000 IU Oral Tablet 09/12/2018 09/21/2023 ORAL WEEKLY 1 TABLET RxNorm TA KE 1 TABLET ORAL WEEKLY Acetaminophen 325MG Oral Tablet 09/25/2023 Unknown ORAL EVERY 6 HOURS 975 MILLIGRAMS 910596 RxNorm TAKE 975 MILLIGRAMS ORAL EVERY 6 HOURS Amitriptyline 10MG Oral Tablet 09/25/2023 Unknown ORAL EVERY EVENIN G 20 MILLIGRAMS 717242 RxNorm TAKE 20 MILLIGRAMS ORAL EVERY EVENING Cyclobenzaprine 10MG Oral Tablet 09/25/2023 Unknown ORAL THREE TIMES A DAY 5 MILLIGRAMS 012177 RxNorm TAKE 5 MILLIGRAMS ORAL THREE TIMES A DAY DULoxetine HCl 30MG Oral Capsule, Delayed Release 09/25/2023 Unknown ORAL DAILY 30 MILLIGRAMS 188682 RxNorm TAKE 30 MILLIGRAMS ORAL DAILY Estradiol 0.5MG Oral Tablet 09/25/2023 Unknown ORAL DAILY 0.5 TABLET 556471 RxNorm TAKE 0 .5 TABLET ORAL DAILY Fluticasone Propionate 0.05MG/1Actuatio n Nasal Antoine 09/25/2023 Unknown NASAL TWICE A DAY 1 unit(s) 8888677 RxNorm SPRAY 1 EACH NASAL TWICE A DAY Folic Acid 1MG Oral Tablet 09/25/2023 Unknown ORAL DAILY 1 MILLIGRAMS 423091 RxNorm TAKE 1 MILLIGRAMS ORAL DAILY Loperamide 2 MG Oral Tablet 09/25/2023 Unknown ORAL NEEDED DAILY RxNorm TAKE 1-2 CAPSULE ORAL NEEDED DAILY Nicotine 21MG/24HR Transdermal Patch, Extended Release 09/25/2023 Unknown TRANS DERMA L DAILY 1 unit(s) 100586 RxNorm APPLY 1 EACH TRANSDERMAL DAILY Nicotine 4 MG Oromucosal Gum 09/25/2023 Unknown OROMU COSAL 4 MG 290652 RxNorm 4 MG OROMUCOSAL Ondansetron HCl 4MG Oral Tablet 09/25/2023 Unknown ORAL NEEDED DAILY 4 MILLIGRAMS 809334 RxNorm TAKE 4 MILLIGRAMS ORAL NEEDED DAILY Potassium Chloride 10MEQ Oral Capsule, Extended Release 09/25/2023 Unknown ORAL DAILY 20 MEQ 638128 RxNorm TAKE 20 MEQ ORAL DAILY Sodium Bicarbonate 650MG Oral Tablet 09/25/2023 Unknown ORAL 650 MILLIGRAMS 071947 RxNorm TAKE 650 MILLIGRAMS ORAL Vitamin D3 25MCG Oral Capsule, Liquid Filled 09/25/2023 Unknown ORAL DAILY 25 MCG RxNorm TAKE 25 MCG ORAL DAILY busPIRone 10MG Oral Tablet 09/25/2023 Unknown ORAL TWICE A DAY 10 MILLIGRAMS 768991 RxNorm TAKE 10 MILLIGRAMS ORAL TWICE A [...] Code System ACUTE INJURY OF KIDNEY active 4351611 5208751070 SNOMED-CT DEHYDRATION active 57596593 SNOMED-C T NAUSEA WITH VOMITING active 13682697 SNOMED-CT CROHN'S DISEASE W/ COMPLICATION active 2226381687455747 SNOMED-CT NICOTINE DEPENDENCE active 13803781 SNOMED-CT OPEN WOUND active 363324120 SNOMED-CT CROHNS active 00428672 SNOMED-CT FIBROMYALGIA active 440887576 SNOMED- CT PANCREATITIS active 31446499 SNOMED- CT ALTERED MENTAL STATUS active 44559382 4 SNOMED-CT Allergies and Adverse Reactions Allergy Substance Reaction Severity Start Date Concern Status Code Code System NSAID CKD (SNOMED-CT: null) Active 41140392 SNOMED-CT CHANTIX SEIZURE (SNOMED-CT: null) Active 427718 RxNorm VARENICLINE SEIZURE (SNOMED-CT: null) Active 941865 RxNorm Plan of Treatment LAB DRAW 15MIN [...] Code Sys tem Acute kidney failure, unspecified 01/07/2023 SNOMED-CT Personal Care Team Section Performer Name Performer Role Active Date Inactive Da te
--- OUTSIDE RECORDS SUMMARY | 2024-03-17 12:11 | XMS_ITS ---
Author Organization Unknown Address [address] [place] [phone] Phone Care Team Providers Care High Reach Operator Name Role Phone VIC SHAH Registered Nurse Unavailable MARIAM Boland Attending Unavailable MAYCO Urias Primary Unavailable UNLISTED PROVIDER - REQUESTED Xhandoff Un available Results OVA AND PARASITES - COMPLETE * - Collect Date/Time: 03/08/2023 15:00 [facility] ID: [id number] [address] [place] [address], [id number] LOINC: 94148-9 Test Value Unit Reference Range Code Code System Flag Parasite Growth No ova and parasites seen. FECAL BACTERIAL PATHOGENS BY PCR - Collect Date/Time: 03/08/2023 15:00 [facility] ID: [id number] [address] [place] [address], [id number] LOINC: Test Value Unit Reference Range Code Code System Flag Salmonella PCR Negative Negative Shigella PCR Negative Negative Campylobacter PCR Negative Negative Shiga Toxin PCR Negative Negative CLOSTRIDIUM DIFFICILE BY PCR * - Collect Date/Time: 03/08/2023 15:00 [facility] ID: [id number] [address] [place] [address], [id number] LOINC: 76191-4 Test Value Unit Reference Range Code Code System Flag Consistency = WATERY 48015-1 LOINC C. DIFFICILE DNA NEGATIVE Normal: Negative 41669-0 LOINC COMPREHENSIVE METABOLIC PANE L (CMP) - Collect Date/Time: 03/08/2023 13:42 [facility] ID: [id number] [address] [place], [place], [address] LOINC: 10020-9 Test Value Unit Reference Range Code Code System Flag GLUCOSE 117 mg/dL L=70 H=116 2345-7 LOINC H BUN 30 mg/dL L=6 H=25 3094-0 LOINC H CREATININE 1.52 mg/dL L=0.51 H=0.95 2160-0 LOINC H SODIUM SERUM 138 mmol/L L=136 H=145 2951-2 LOINC POTASSIUM SERUM 2.9 mmol/L L=3.4 H=5.2 2823-3 LOINC LL CHLORIDE SERUM 98 mmol/L L=96 H=110 2075-0 LOINC CARBON DIOXIDE (CO2) 35 mmol/L L=22 H=34 2028-9 LOINC H ANION GAP 4.7 mmol/L 32533-1 LOINC CALCIUM SERUM 9.2 mg/dL L=8.2 H=10.2 82187-7 LOINC BILIRUBIN TOTAL 0.4 mg/dL L=0.0 H=1.3 1975-2 LOINC ALK. PHOS. 218 U/L L=46 H=116 6768-6 LOINC H SGOT (AST) 39 U/L L=15 H=37 1920-8 LOINC H SGPT (ALT) 45 U/L L=12 H=78 1742-6 LOINC TOTAL PROTEIN 7.5 gm/dL L=6.0 H=8.0 2885-2 LOINC ALBUMIN 2.7 gm/dL L=3.4 H=5.0 1751-7 LOINC L AGE 67 years eGFR (non-Afr.Amer.) 34 mL/min 65414-3 LOINC eGFR (Afr-Greenlandic) 41 mL/min 18339-4 LOINC CULT URINE CULTURE* - Collec t Date/Time: 03/08/2023 13:42 [facility] ID: [id number] [address] [place], [place], [id number] LOINC: 630-4 Test Value Unit Reference Range Code Code System Flag COLLECTION MODE: CLEAN CATCH 06324-5 LOINC CBC W/ DIFFERENTIAL* - Colle ct Date/Time: 03/08/2023 13:42 [facility] ID: [id number] [address] [place] [address], [address] LOINC: 27429-6 Test Value Unit Reference Range Code Code System Flag WBC 9.70 th/cmm L=5.00 H=10.00 6690-2 LOINC NEUT % 76.0 % L=40.0 H=80.0 LYMPH % 14.6 % L=10.0 H=50.0 MONO % 7.4 % L=2.0 H=12.0 88426-6 LOINC EOS % 1.0 % L=0.0 H=8.0 BASO % 0.1 % L=0.0 H=3.0 IG % 0.9 % L=0.0 H=1.1 2514-8 LOINC NRBC % 0.0 % L=0.0 H=0.0 83188-3 LOINC NEUT abs count 7.4 th/cmm L=1.6 H=8.4 751-8 LOINC LYMPH abs count 1.4 th/cmm L=1.5 H=4.0 731-0 LOINC L MONO abs count 0.7 th/cmm L=0.2 H=1.0 742-7 LOINC EOS abs count 0.1 th/cmm L=0.0 H=0.5 711-2 LOINC BASO abs count 0.0 th/cmm L=0.0 H=0.2 704-7 LOINC IG abs count 0.1 th/cmm L=0.0 H=0.1 22700-2 LOINC NRBC abs count 0.0 mil/cmm L=0.0 H=0.0 08923-0 LOINC RBC 3.98 mil/cmm L=3.90 H=5.40 789-8 LOINC HEMOGLOBIN 13.4 gm/dL L=12.0 H=16.0 718-7 LOINC HEMATOCRIT 40 % L=37 H=47 4544-3 LOINC MCV 100 fL L=82 H=92 787-2 LOINC H MCH 33.7 pg L=27.0 H=31.0 785-6 LOINC H MCHC 33.6 % L=32.0 H=36.0 786-4 LOINC RDW-SD 49.4 fL L=39.0 H=49.0 788-0 LOINC H PLATELET COUNT 357 th/cmm L=150 H=450 777-3 LOINC URINALYSIS WITH REFLEX CULT IF POSITIVE* - Collect Date/Time: 03/08/2023 13:42 [facility] ID: [id number] [address] [place], [place], [address] LOINC: 62956-0 Test Value Unit Reference Range Code Code System Flag COLLECTION MODE: CLEAN CATCH 91764-0 LOINC Color YELLOW yellow 5778-6 LOINC Appearance CLEAR clear 5767-9 LOINC Glucose urine NEGATIVE negative mg/dl 55971-3 LOINC Bilirubin NEGATIVE negative 5770-3 LOINC Ketones NEGATIVE negative mg/dl 2514-8 LOINC Spec gravity 1.010 1.003 - 1.030 5811-5 LOINC pH urine 7.5 5.0 - 7.0 2756-5 LOINC A Protein TRACE negative mg/dl 11055-2 LOINC Urobilinogen 0.2 <or= 1 EU/dl 23248-1 LOINC Nitrite. NEGATIVE negative 5802-4 LOINC Blood NEGATIVE negative 5794-3 LOINC Leukocytes. TRACE negative A MICROSCOPIC INDICATED WBCs. 5-10 0-5 / hpf 67677-8 LOINC RBCs 0-5 0-5 / hpf 56810-2 LOINC Epith cells 5-10 0-5 / hpf 33700-8 LOINC Cell types squamous Crystals none none Bacteria moderate none Mucus none none 8247-9 LOINC Casts none none /lpf 57048-7 LOINC Other 96639-1 LOINC MAGNESIUM SERUM* - Collect D ate/Time: 03/08/2023 13:42 [facility] ID: [id number] [address] [place], [place], [address] LOINC: 84695-9 Test Value Unit Reference Range Code Code System Flag MAGNESIUM 1.9 mg/dL L=1.8 H=2.4 84235-4 LOINC LIPASE* NEW - Collect Date/T lexie: 03/08/2023 13:42 [facility] ID: [id number] [address] [place], [place], [id number] LOINC: 3040-3 Test Value Unit Reference Range Code Code System Flag LIPASE. 1475 U/L L=16 H=[address] ABD PELVIS WO IV OR ORAL CONTRAST - Completed: 03/08/2023 16:10 LOINC: [facility] RADI[facility] [place], [place] [address] [employer] ARCHITECT REPORT Patient Name: DAILY NEVILLE MRN: Sex: : Age: [id number] F [id number] Account: Accession: Admit: StayType: [id number] 03/08/2023 E/R Ordered: Order ID: Submitted: Ordering Provider: 03/08/2023 16:02 [id number] KARINE ROOT Completed: Technologist: Resulted: 03/08/2023 16:11 BXS 03/08/2023 18:07 Study Description: CT ABD PELVIS WO IV OR ORAL CONTRAST Study Reason: Abdominal Pain TECHNIQUE: Imaging Protocol: Axial computed tomography images with coronal and sagittal reformatted images were created and reviewed CONTRAST MATERIAL: Intravenous: none Oral: None COMPARISON: Prior abdominal CT scan May 2018. FINDINGS: VISUALIZED LUNG BASES: Visualized lung bases are clear and there are no pleural effusions. ABDOMEN: There has been significant weight loss since the prior study of 06/03/2018 with only minimal remaining subcutaneous fat. There is no ascites and no evidence of bowel obstruction in this patient has a left sided ostomy. LIVER: There are no obvious focal hepatic lesions evident on this noninfused study. GALLBLADDER/BILIARY: No obvious gallbladder pathology. CBD is not dilated. PANCREAS: No evidence of pancreatic mass nor dilatation of the pancreatic duct. No peripancreatic fluid collections. SPLEEN: Spleen is not enlarged. No obvious intrasplenic lesions. ADRENALS: There are no significant adrenal masses. KIDNEYS: Bilateral nephrolithiasis noticed. Appearance of the kidneys probably reflects medullary sponge kidney. There also cysts in the right kidney, the largest measuring 2 cm and appearing hemorrhagic. Difficult to assess without IV contrast. No hydronephrosis nor hydroureter and there are no radiopaque calculi seen in the urinary bladder. ABDOMINAL AORTA: Abdominal aorta is not enlarged. LYMPH NODES: There is no retroperitoneal nor para=aortic adenopathy. ABDOMINAL WALL/GI: No evidence of significant anterior abdominal wall hernia. No bowel obstruction. PELVIS: LYMPH NODES: There is no intrapelvic nor inguinal adenopathy. GI: No evidence of appendicitis.No evidence of sigmoid diverticulitis. URINARY BLADDER: No calculi nor obvious masses evident REPRODUCTIVE: Uterus atrophic or surgically absent. There is a loop device in the peritoneum and vaginal region which is probably type of drainage catheter. This was not evident on the prior study of 2019. There is no abnormal fluid collection in this region at this time. OSSEOUS: No significant osseous lesions and no fractures evident. IMPRESSION: 1. Limited study due to lack of IV and oral contrast in this patient was abnormal renal function precluding administration of IV contrast. 2. Left-sided ostomy. No bowel obstruction, free air, nor abscess. 3. Bilateral nephrolithiasis. No evidence of hydronephrosis. Right renal cyst. 4. There is a thin drainage catheter in the perineum. No evidence of obvious abscess at this level Findings discussed with ER physician Report Digitally Signed by Navi Hooks on 03/08/2023 06:07 PM EST Social History Type Status Start Date End Date Code Code Syst em Smoking History Current every day smoker [id number] SNOMED CT Sex Female Vital Signs Vital Sign Value Unit O[place]to Value Oconto Unit Date/Time Recent/Initial? Code Code System Body Mass Index 15.55 kg/m2 03/08/2023 11:58 Initial 24907 -5 LOINC Systolic Blood Pressure 142 mm[Hg] 03/08/2023 18:35 Most Recent 8480- 6 LOINC Diastolic Blood Pressure 76 mm[Hg] 03/08/2023 18:35 Most Recent 8462- 4 LOINC Systolic Blood Pressure 123 mm[Hg] 03/08/2023 11:58 Initial 8480- 6 LOINC Diastolic Blood Pressure 86 mm[Hg] 03/08/2023 11:58 Initial 8462- 4 LOINC Body Surface Area 1.21 m2 03/08/2023 11:58 Initial 3140- 1 LOINC Height 149.860 0 cm 59.00 in 03/08/2023 11:58 Initial 8302- 2 INC O2 Saturation 98 % 2022 18:35 Most Recent 94582 -5 INC O2 Saturation 100 % 2022 11:58 Initial 10027 -5 INC Pulse 78.0 /min 03/08/2023 18:35 Most Recent 8867- 4 INC Pulse 100.0 /min 03/08/2023 11:58 Initial 8867- 4 INC Respiration 18 /min 03/08/20 18:35 Most Recent 9279- 1 INC Respiration 14 /min 03/08/20 11:58 Initial 9279- 1 INC Temperature 36.0 Mariza 96.8 F 03/08/20 11:58 Initial 8310- 5 INC Weight 34.93 kg 77.00 lbs 03/08/2023 11:58 Initial 50197 -7 [facility] Medications Medication Start Date End Date Route Frequency Dose Code Code System Medication Instructions Home Meds Cyclobenzaprine 10MG Oral Tablet 03/04/2017 09/21/2023 ORAL THREE TIMES A DAY 10 MILLIGRAMS 042353 RxNorm TAKE 10 MILLIGRAMS ORAL THREE TIMES A DAY Cymbalta 60MG Oral Capsule, Delayed Release 03/04/2017 09/21/2023 ORAL DAILY 60 MILLIGRAMS 065058 RxNorm TAKE 60 MILLIGRAMS ORAL DAILY Magnesium 500 MG Oral Tablet 03/04/2017 Unknown ORAL DAILY 500 MILLIGRAMS 649774 RxNorm TAKE 500 MILLIGRAMS ORAL DAILY Cyanocobalamin 1000MCG/1ML Injection Solution 03/21/2018 Unknown INTRA MUSCU LAR MONTHL Y 1 MILLILITERS 686352 RxNorm INJECT 1 MILLILITERS INTRAMUSCUL AR MONTHLY Estradiol 0.5MG Oral Tablet 03/21/2018 09/21/2023 ORAL DAILY 0.5 MILLIGRAMS 19750721 RxNorm TAKE 0.5 MILLIGRAMS ORAL DAILY Metoprolol Succinate 25MG Oral Tablet, Extended Release 03/21/2018 Unknown ORAL DAILY 1 TABLET 983173 RxNorm LISA E 1 TABLET ORAL DAILY Sodium Bicarbonate 650MG Oral Tablet 03/21/2018 09/21/2023 ORAL THREE TIMES A DAY 1950 MILLIGRAMS 165850 RxNorm TAKE 1950 MILLIGRAMS ORAL THREE TIMES A DAY Potassium Chloride 20MEQ Oral Tablet, Extended Release 06/05/2018 09/21/2023 ORAL TWICE A DAY 20 MEQ 8864252 RxNorm TAKE 20 MEQ ORAL TWICE A DAY Magnesium 500 MG Oral Tablet 09/12/2018 09/21/2023 ORAL DAILY 1000 MG 498330 RxNorm TAKE 1 000 MG ORAL DAILY Vitamin D2 2000 IU Oral Tablet 09/12/2018 09/21/2023 ORAL WEEKLY 1 TABLET RxNorm TA KE 1 TABLET ORAL WEEKLY Acetaminophen 325MG Oral Tablet 09/25/2023 Unknown ORAL EVERY 6 HOURS 975 MILLIGRAMS 769322 RxNorm TAKE 975 MILLIGRAMS ORAL EVERY 6 HOURS Amitriptyline 10MG Oral Tablet 09/25/2023 Unknown ORAL EVERY EVENIN G 20 MILLIGRAMS 870547 RxNorm TAKE 20 MILLIGRAMS ORAL EVERY EVENING Cyclobenzaprine 10MG Oral Tablet 09/25/2023 Unknown ORAL THREE TIMES A DAY 5 MILLIGRAMS 385481 RxNorm TAKE 5 MILLIGRAMS ORAL THREE TIMES A DAY DULoxetine HCl 30MG Oral Capsule, Delayed Release 09/25/2023 Unknown ORAL DAILY 30 MILLIGRAMS 925611 RxNorm TAKE 30 MILLIGRAMS ORAL DAILY Estradiol 0.5MG Oral Tablet 09/25/2023 Unknown ORAL DAILY 0.5 TABLET 19750721 RxNorm TAKE 0 .5 TABLET ORAL DAILY Fluticasone Propionate 0.05MG/1Actuatio n Nasal Armstrong 09/25/2023 Unknown NASAL TWICE A DAY 1 unit(s) 5906347 RxNorm SPRAY 1 EACH NASAL TWICE A DAY Folic Acid 1MG Oral Tablet 09/25/2023 Unknown ORAL DAILY 1 MILLIGRAMS 115518 RxNorm TAKE 1 MILLIGRAMS ORAL DAILY Loperamide 2 MG Oral Tablet 09/25/2023 Unknown ORAL NEEDED DAILY RxNorm TAKE 1-2 CAPSULE ORAL NEEDED DAILY Nicotine 21MG/24HR Transdermal Patch, Extended Release 09/25/2023 Unknown TRANS DERMA L DAILY 1 unit(s) RxNorm APPLY 1 EACH TRANSDERMAL DAILY Nicotine 4 MG Oromucosal Gum 09/25/2023 Unknown OROMU COSAL 4 MG 129781 RxNorm 4 MG OROMUCOSAL Ondansetron HCl 4MG Oral Tablet 09/25/2023 Unknown ORAL NEEDED DAILY 4 MILLIGRAMS 19790716 RxNorm TAKE 4 MILLIGRAMS ORAL NEEDED DAILY Potassium Chloride 10MEQ Oral Capsule, Extended Release 09/25/2023 Unknown ORAL DAILY 20 MEQ 966593 RxNorm TAKE 20 MEQ ORAL DAILY Sodium Bicarbonate 650MG Oral Tablet 09/25/2023 Unknown ORAL 650 MILLIGRAMS 19870815 RxNorm TAKE 650 MILLIGRAMS ORAL Vitamin D3 25MCG Oral Capsule, Liquid Filled 09/25/2023 Unknown ORAL DAILY 25 MCG RxNorm TAKE 25 MCG ORAL DAILY busPIRone 10MG Oral Tablet 09/25/2023 Unknown ORAL TWICE A DAY 10 MILLIGRAMS 824637 RxNorm TAKE 10 MILLIGRAMS ORAL TWICE A [...] Code System ACUTE INJURY OF KIDNEY active 4264538 [id number] SNOMED-CT DEHYDRATION active 20949413 SNOMED-C T NAUSEA WITH VOMITING active 62726761 SNOMED-CT CROHN'S DISEASE W/ COMPLICATION active 6545005217745908 SNOMED-CT NICOTINE DEPENDENCE active 20776493 SNOMED-CT OPEN WOUND active 254495604 SNOMED-CT CROHNS active 67820190 SNOMED-CT FIBROMYALGIA active 672718501 SNOMED- CT PANCREATITIS active 26322909 SNOMED- CT ALTERED MENTAL STATUS active 26697201 4 SNOMED-CT Allergies and Adverse Reactions Allergy Substance Reaction Severity Start Date Concern Status Code Code System NSAID CKD (SNOMED-CT: null) Active 29814655 SNOMED-CT CHANTIX SEIZURE (SNOMED-CT: null) Active 813762 RxNorm VARENICLINE SEIZURE (SNOMED-CT: null) Active 443971 RxNorm Plan of Treatment LAB DRAW 15MIN [...] 08/29/2021 US ABDOMEN LIMITED 1 ORGAN 07/31/2021 OUTPATIENT PLAN: Clear liquid diet for 1-2 days. HOSPITAL COURSE AND TESTING: Medications given this visit: Ordered & Completed Meds Table Ordered Medication Start Date/Time Dosage Route Frequency Status SODIUM CHLORIDE 0.9% 1000ML 03/08/2023 13:07 INTRAVENOUS X1 completed POTASSIUM CHL IN WATER RIDER:10mEq/100ML 03/08/2023 15:41 100 ml/hr IV PIGGYBACK X1 cancelled POTASSIUM CHL IN WATER RIDER:10mEq/100ML 03/08/2023 15:41 100 ml/hr IV PIGGYBACK X1 cancelled POTASSIUM CHL ORAL KWABENA: 40mEq/30ML 03/08/2023 15:41 40 MEQ ORAL X1 cancelled POTASSIUM CHL IN NS: 20mEq/1000ML 03/08/2023 15:51 500 ml/hr INTRAVENOUS X1 completed Lab Results: This Visit Test Results Units Reference Range Ordered Collected Status Consistency = WATERY WATERY 03/08/2023 13:50 03/08/2023 15:00 final C. DIFFICILE DNA NEGATIVE NEGATIVE Normal: Negative 03/08/2023 13:50 03/08/2023 15:00 final FECAL BACTERIAL PATHOGENS BY PCR 03/08/2023 13:50 03/08/2023 15:00 registered GIARDIA AND CRYPTOSPORIDIUM EXAM STOOL* 03/08/2023 13:50 03/08/2023 15:00 registered OVA AND PARASITES - COMPLETE* 03/08/2023 13:50 03/08/2023 15:00 registered EKG ORDER TRACING 12 LEAD 03/08/2023 13:07 03/08/2023 14:35 final WBC 9.70 th/cmm L=5.00 H=10.00 03/08/2023 13:07 03/08/2023 13:42 final NEUT % 76.0 % L=40.0 H=80.0 03/08/2023 13:07 03/08/2023 13:42 final LYMPH % 14.6 % L=10.0 H=50.0 03/08/2023 13:07 03/08/2023 13:42 final MONO % 7.4 % L=2.0 H=12.0 03/08/2023 13:07 03/08/2023 13:42 final EOS % 1.0 % L=0.0 H=8.0 03/08/2023 13:07 03/08/2023 13:42 final BASO % 0.1 % L=0.0 H=3.0 03/08/2023 13:07 03/08/2023 13:42 final IG % 0.9 % L=0.0 H=1.1 03/08/2023 13:07 03/08/2023 13:42 final NRBC % 0.0 % L=0.0 H=0.0 03/08/2023 13:07 03/08/2023 13:42 final NEUT abs count 7.4 th/cmm L=1.6 H=8.4 03/08/2023 13:07 03/08/2023 13:42 final LYMPH abs count 1.4 L th/cmm L=1.5 H=4.0 03/08/2023 13:07 03/08/2023 13:42 final MONO abs count 0.7 th/cmm L=0.2 H=1.0 03/08/2023 13:07 03/08/2023 13:42 final EOS abs count 0.1 th/cmm L=0.0 H=0.5 03/08/2023 13:07 03/08/2023 13:42 final BASO abs count 0.0 th/cmm L=0.0 H=0.2 03/08/2023 13:07 03/08/2023 13:42 final IG abs count 0.1 th/cmm L=0.0 H=0.1 03/08/2023 13:07 03/08/2023 13:42 final NRBC abs count 0.0 mil/cmm L=0.0 H=0.0 03/08/2023 13:07 03/08/2023 13:42 final RBC 3.98 mil/cmm L=3.90 H=5.40 03/08/2023 13:07 03/08/2023 13:42 final HEMOGLOBIN 13.4 gm/dL L=12.0 H=16.0 03/08/2023 13:07 03/08/2023 13:42 final HEMATOCRIT 40 % L=37 H=47 03/08/2023 13:07 03/08/2023 13:42 final MCV 100 H fL L=82 H=92 03/08/2023 13:07 03/08/2023 13:42 final MCH 33.7 H pg L=27.0 H=31.0 03/08/2023 13:07 03/08/2023 13:42 final MCHC 33.6 % L=32.0 H=36.0 03/08/2023 13:07 03/08/2023 13:42 final RDW-SD 49.4 H fL L=39.0 H=49.0 03/08/2023 13:07 03/08/2023 13:42 final PLATELET COUNT 357 th/cmm L=150 H=450 03/08/2023 13:07 03/08/2023 13:42 final GLUCOSE 117 H mg/dL L=70 H=116 03/08/2023 13:07 03/08/2023 13:42 final BUN 30 H mg/dL L=6 H=25 03/08/2023 13:07 03/08/2023 13:42 final CREATININE 1.52 H mg/dL L=0.51 H=0.95 03/08/2023 13:07 03/08/2023 13:42 final SODIUM SERUM 138 mmol/L L=136 H=145 03/08/2023 13:07 03/08/2023 13:42 final POTASSIUM SERUM 2.9 LL mmol/L L=3.4 H=5.2 03/08/2023 13:07 03/08/2023 13:42 final CHLORIDE SERUM 98 mmol/L L=96 H=110 03/08/2023 13:07 03/08/2023 13:42 final CARBON DIOXIDE (CO2) 35 H mmol/L L=22 H=34 03/08/2023 13:07 03/08/2023 13:42 final ANION GAP 4.7 mmol/L 03/08/2023 13:07 03/08/2023 13:42 final CALCIUM SERUM 9.2 mg/dL L=8.2 H=10.2 03/08/2023 13:07 03/08/2023 13:42 final BILIRUBIN TOTAL 0.4 mg/dL L=0.0 H=1.3 03/08/2023 13:07 03/08/2023 13:42 final ALK. PHOS. 218 H U/L L=46 H=116 03/08/2023 13:07 03/08/2023 13:42 final SGOT (AST) 39 H U/L L=15 H=37 03/08/2023 13:07 03/08/2023 13:42 final SGPT (ALT) 45 U/L L=12 H=78 03/08/2023 13:07 03/08/2023 13:42 final TOTAL PROTEIN 7.5 gm/dL L=6.0 H=8.0 03/08/2023 13:07 03/08/2023 13:42 final ALBUMIN 2.7 L gm/dL L=3.4 H=5.0 03/08/2023 13:07 03/08/2023 13:42 final AGE 67 years 03/08/2023 13:07 03/08/2023 13:42 final eGFR (non-Afr.Amer.) 34 mL/min 03/08/2023 13:07 03/08/2023 13:42 final eGFR (Afr-Greenlandic) 41 mL/min 03/08/2023 13:07 03/08/2023 13:42 final CULT URINE CULTURE* 03/08/2023 13:07 03/08/2023 13:42 registered LIPASE. 1475 HH U/L L=16 H=77 03/08/2023 13:07 03/08/2023 13:42 final MAGNESIUM 1.9 mg/dL L=1.8 H=2.4 03/08/2023 13:07 03/08/2023 13:42 final COLLECTION MODE: CLEAN CATCH CLEAN CATCH 03/08/2023 13:07 03/08/2023 13:42 final Color YELLOW YELLOW yellow 03/08/2023 13:07 03/08/2023 13:42 final Appearance CLEAR CLEAR clear 03/08/2023 13:07 03/08/2023 13:42 final Glucose urine NEGATIVE NEGATIVE negative mg/dl 03/08/2023 13:07 03/08/2023 13:42 final Bilirubin NEGATIVE NEGATIVE negative 03/08/2023 13:07 03/08/2023 13:42 final Ketones NEGATIVE NEGATIVE negative mg/dl 03/08/2023 13:07 03/08/2023 13:42 final Spec gravity 1.010 1.010 1.003 - 1.030 03/08/2023 13:07 03/08/2023 13:42 final pH urine 7.5 A 7.5 5.0 - 7.0 03/08/2023 13:07 03/08/2023 13:42 final Protein TRACE TRACE negative mg/dl 03/08/2023 13:07 03/08/2023 13:42 final Urobilinogen 0.2 0.2 03/08/2023 13:07 03/08/2023 13:42 final Nitrite. NEGATIVE NEGATIVE negative 03/08/2023 13:07 03/08/2023 13:42 final Blood NEGATIVE NEGATIVE negative 03/08/2023 13:07 03/08/2023 13:42 final Leukocytes. TRACE A TRACE negative 03/08/2023 13:07 03/08/2023 13:42 final MICROSCOPIC INDICATED INDICATED 03/08/2023 13:07 03/08/2023 13:42 final WBCs. 5-10 5-10 0-5 / hpf 03/08/2023 13:07 03/08/2023 13:42 final RBCs 0-5 0-5 0-5 / hpf 03/08/2023 13:07 03/08/2023 13:42 final Epith cells 5-10 5-10 0-5 / hpf 03/08/2023 13:07 03/08/2023 13:42 final Cell types squamous squamous 03/08/2023 13:07 03/08/2023 13:42 final Crystals none none none 03/08/2023 13:07 03/08/2023 13:42 final Bacteria moderate moderate none 03/08/2023 13:07 03/08/2023 13:42 final Mucus none none none 03/08/2023 13:07 03/08/2023 13:42 final Casts none none none /lpf 03/08/2023 13:07 03/08/2023 13:42 final Other 03/08/2023 13:07 03/08/2023 13:42 final RADIOLOGY RESULTS: Study Description: CT ABD PELVIS WO IV OR ORAL CONTRAST Study Reason: Abdominal Pain Technique: Imaging Protocol: Axial computed tomography images with coronal and sagittal reformatted images were created and reviewed CONTRAST MATERIAL: Intravenous: none Oral: None Comparison: Prior abdominal CT scan May 2018. Findings: VISUALIZED LUNG BASES: Visualized lung bases are clear and there are no pleural effusions. ABDOMEN: There has been significant weight loss since the prior study of 06/03/2018 with only minimal remaining subcutaneous fat. There is no ascites and no evidence of bowel obstruction in this patient has a left sided ostomy. LIVER: There are no obvious focal hepatic lesions evident on this noninfused study. GALLBLADDER/BILIARY: No obvious gallbladder pathology. CBD is not dilated. PANCREAS: No evidence of pancreatic mass nor dilatation of the pancreatic duct. No peripancreatic fluid collections. SPLEEN: Spleen is not enlarged. No obvious intrasplenic lesions. ADRENALS: There are no significant adrenal masses. KIDNEYS: Bilateral nephrolithiasis noticed. Appearance of the kidneys probably reflects medullary sponge kidney. There also cysts in the right kidney, the largest measuring 2 cm and appearing hemorrhagic. Difficult to assess without IV contrast. No hydronephrosis nor hydroureter and there are no radiopaque calculi seen in the urinary bladder. ABDOMINAL AORTA: Abdominal aorta is not enlarged. LYMPH NODES: There is no retroperitoneal nor para=aortic adenopathy. ABDOMINAL WALL/GI: No evidence of significant anterior abdominal wall hernia. No bowel obstruction. PELVIS: LYMPH NODES: There is no intrapelvic nor inguinal adenopathy. GI: No evidence of appendicitis.No evidence of sigmoid diverticulitis. URINARY BLADDER: No calculi nor obvious masses evident REPRODUCTIVE: Uterus atrophic or surgically absent. There is a loop device in the peritoneum and vaginal region which is probably type of drainage catheter. This was not evident on the prior study of 2019. There is no abnormal fluid collection in this region at this time. OSSEOUS: No significant osseous lesions and no fractures evident. Impression: 1. Limited study due to lack of IV and oral contrast in this patient was abnormal renal function precluding administration of IV contrast. 2. Left-sided ostomy. No bowel obstruction, free air, nor abscess. 3. Bilateral nephrolithiasis. No evidence of hydronephrosis. Right renal cyst. 4. There is a thin drainage catheter in the perineum. No evidence of obvious abscess at this level Encounters Encounter Diagnosis Start Date Code Code Sys tem Crohn's disease, unspecified , with unspecified complications 03/08/2023 [facility] Team Section Performer Name Performer Role Active Date Inactive Da te
--- OUTSIDE RECORDS SUMMARY | 2024-03-17 12:11 | XMS_ITS ---
Author Organization Unknown Address [address], [place] [id number] Phone Care Team Providers Care Commercial Front Load Operator Name Role Phone CARMELLACHILOMARGARET Parker Attending Unavailable MAYCO Urias Primary Unavailable Results COMPREHENSIVE METABOLIC AGNES [place] (CMP) - Collect Date/Time: 10/02/2022 10:16 [facility] ID: [id number] [address] [place], [place], [address] LOINC: 52733-4 Test Value Unit Reference Range Code Code System Flag GLUCOSE 85 mg/dL L=70 H=116 2345-7 LOINC BUN 25 mg/dL L=6 H=25 3094-0 LOINC CREATININE 1.70 mg/dL L=0.51 H=0.95 2160-0 LOINC H SODIUM SERUM 138 mmol/L L=136 H=145 2951-2 LOINC POTASSIUM SERUM 4.0 mmol/L L=3.4 H=5.2 2823-3 LOINC CHLORIDE SERUM 98 mmol/L L=96 H=110 2075-0 LOINC CARBON DIOXIDE (CO2) 37 mmol/L L=22 H=34 2028-9 LOINC H ANION GAP 3.3 mmol/L 89508-0 LOINC CALCIUM SERUM 9.4 mg/dL L=8.2 H=10.2 14942-5 LOINC BILIRUBIN TOTAL 0.3 mg/dL L=0.0 H=1.3 1975-2 LOINC ALK. PHOS. 148 U/L L=46 H=116 6768-6 LOINC H SGOT (AST) 29 U/L L=15 H=37 1920-8 LOINC SGPT (ALT) 31 U/L L=12 H=78 1742-6 LOINC TOTAL PROTEIN 7.8 gm/dL L=6.0 H=8.0 2885-2 INC ALBUMIN 3.5 gm/dL L=3.4 H=5.0 1751-7 [facility] AGE 67 years eGFR (non-Afr.Amer.) 30 mL/min 57699-3 [facility] eGFR (Afr-Kyrgyz) 36 mL/min 16864-1 [facility] Social History Type Status Start Date End Date Code Code Syst em Smoking History Current every day smoker 360146633 SNOMED CT Sex Female Medications Medication Start Date End Date Route Frequency Dose Code Code System Medication Instructions Home Meds Cyclobenzaprine 10MG Oral Tablet 03/04/2017 09/21/2023 ORAL THREE TIMES A DAY 10 MILLIGRAMS 737526 RxNorm TAKE 10 MILLIGRAMS ORAL THREE TIMES A DAY Cymbalta 60MG Oral Capsule, Delayed Release 03/04/2017 09/21/2023 ORAL DAILY 60 MILLIGRAMS 327565 RxNorm TAKE 60 MILLIGRAMS ORAL DAILY Magnesium 500 MG Oral Tablet 03/04/2017 Unknown ORAL DAILY 500 MILLIGRAMS 210842 RxNorm TAKE 500 MILLIGRAMS ORAL DAILY Cyanocobalamin 1000MCG/1ML Injection Solution 03/21/2018 Unknown INTRA MUSCU LAR MONTHL Y 1 MILLILITERS 395290 RxNorm INJECT 1 MILLILITERS INTRAMUSCUL AR MONTHLY Estradiol 0.5MG Oral Tablet 03/21/2018 09/21/2023 ORAL DAILY 0.5 MILLIGRAMS 976648 RxNorm TAKE 0.5 MILLIGRAMS ORAL DAILY Metoprolol Succinate 25MG Oral Tablet, Extended Release 03/21/2018 Unknown ORAL DAILY 1 TABLET 682984 RxNorm LISA E 1 TABLET ORAL DAILY Sodium Bicarbonate 650MG Oral Tablet 03/21/2018 09/21/2023 ORAL THREE TIMES A DAY 1950 MILLIGRAMS 871139 RxNorm TAKE 1950 MILLIGRAMS ORAL THREE TIMES A DAY Potassium Chloride 20MEQ Oral Tablet, Extended Release 06/05/2018 09/21/2023 ORAL TWICE A DAY 20 MEQ 2205264 RxNorm TAKE 20 MEQ ORAL TWICE A DAY Magnesium 500 MG Oral Tablet 09/12/2018 09/21/2023 ORAL DAILY 1000 MG 274364 RxNorm TAKE 1 000 MG ORAL DAILY Vitamin D2 2000 IU Oral Tablet 09/12/2018 09/21/2023 ORAL WEEKLY 1 TABLET RxNorm TA KE 1 TABLET ORAL WEEKLY Acetaminophen 325MG Oral Tablet 09/25/2023 Unknown ORAL EVERY 6 HOURS 975 MILLIGRAMS 694864 RxNorm TAKE 975 MILLIGRAMS ORAL EVERY 6 HOURS Amitriptyline 10MG Oral Tablet 09/25/2023 Unknown ORAL EVERY EVENIN G 20 MILLIGRAMS 629150 RxNorm TAKE 20 MILLIGRAMS ORAL EVERY EVENING Cyclobenzaprine 10MG Oral Tablet 09/25/2023 Unknown ORAL THREE TIMES A DAY 5 MILLIGRAMS 627758 RxNorm TAKE 5 MILLIGRAMS ORAL THREE TIMES A DAY DULoxetine HCl 30MG Oral Capsule, Delayed Release 09/25/2023 Unknown ORAL DAILY 30 MILLIGRAMS 655280 RxNorm TAKE 30 MILLIGRAMS ORAL DAILY Estradiol 0.5MG Oral Tablet 09/25/2023 Unknown ORAL DAILY 0.5 TABLET 084613 RxNorm TAKE 0 .5 TABLET ORAL DAILY Fluticasone Propionate 0.05MG/1Actuatio n Nasal [place] 09/25/2023 Unknown NASAL TWICE A DAY 1 unit(s) 6098294 RxNorm SPRAY 1 EACH NASAL TWICE A DAY Folic Acid 1MG Oral Tablet 09/25/2023 Unknown ORAL DAILY 1 MILLIGRAMS 490333 RxNorm TAKE 1 MILLIGRAMS ORAL DAILY Loperamide 2 MG Oral Tablet 09/25/2023 Unknown ORAL NEEDED DAILY RxNorm TAKE 1-2 CAPSULE ORAL NEEDED DAILY Nicotine 21MG/24HR Transdermal Patch, Extended Release 09/25/2023 Unknown TRANS DERMA L DAILY 1 unit(s) 652195 RxNorm APPLY 1 EACH TRANSDERMAL DAILY Nicotine 4 MG Oromucosal Gum 09/25/2023 Unknown OROMU COSAL 4 MG 870089 RxNorm 4 MG OROMUCOSAL Ondansetron HCl 4MG Oral Tablet 09/25/2023 Unknown ORAL NEEDED DAILY 4 MILLIGRAMS 000851 RxNorm TAKE 4 MILLIGRAMS ORAL NEEDED DAILY Potassium Chloride 10MEQ Oral Capsule, Extended Release 09/25/2023 Unknown ORAL DAILY 20 MEQ 002289 RxNorm TAKE 20 MEQ ORAL DAILY Sodium Bicarbonate 650MG Oral Tablet 09/25/2023 Unknown ORAL 650 MILLIGRAMS 690540 RxNorm TAKE 650 MILLIGRAMS ORAL Vitamin D3 25MCG Oral Capsule, Liquid Filled 09/25/2023 Unknown ORAL DAILY 25 MCG RxNorm TAKE 25 MCG ORAL DAILY busPIRone 10MG Oral Tablet 09/25/2023 Unknown ORAL TWICE A DAY 10 MILLIGRAMS 593549 RxNorm TAKE 10 MILLIGRAMS ORAL TWICE A [...] Code System ACUTE INJURY OF KIDNEY active 6842986 [id number] SNOMED-CT DEHYDRATION active 88704826 SNOMED-C T NAUSEA WITH VOMITING active 56819000 SNOMED-CT CROHN'S DISEASE W/ COMPLICATION active 5140657912636285 SNOMED-CT NICOTINE DEPENDENCE active 24567501 SNOMED-CT OPEN WOUND active 912095343 SNOMED-CT CROHNS active 03301322 SNOMED-CT FIBROMYALGIA active 601870291 SNOMED- CT PANCREATITIS active 18978519 SNOMED- CT ALTERED MENTAL STATUS active 62211325 4 SNOMED-CT Allergies and Adverse Reactions Allergy Substance Reaction Severity Start Date Concern Status Code Code System NSAID CKD (SNOMED-CT: null) Active 89256154 SNOMED-CT CHANTIX SEIZURE (SNOMED-CT: null) Active 488928 RxNorm VARENICLINE SEIZURE (SNOMED-CT: null) Active 429721 RxNorm Plan of Treatment LAB DRAW 15MIN [...] Start Date Code Code Sys tem Acute renal failure syndrome 10/02/2022 03550653 SNOMED-CT Personal Care Team Section Performer Name Performer Role Active Date Inactive Da te
--- OUTSIDE RECORDS SUMMARY | 2024-03-17 12:11 | XMS_ITS ---
Author Organization Unknown Address [address] [place] [phone] Phone Care Team Providers Care Semiconductor Manufacturing Technician Name Role Phone HAZEL Parker Attending Unavailable MAYCO Urias Primary Unavailable Results COMPREHENSIVE METABOLIC AGNES [place] (CMP) - Collect Date/Time: 12/05/2022 12:09 [facility] ID: [id number] [address] [place], [place], [address] LOINC: 22744-6 Test Value Unit Reference Range Code Code System Flag GLUCOSE 99 mg/dL L=70 H=116 2345-7 LOINC BUN 30 mg/dL L=6 H=25 3094-0 LOINC H CREATININE 1.71 mg/dL L=0.51 H=0.95 2160-0 LOINC H SODIUM SERUM 140 mmol/L L=136 H=145 2951-2 LOINC POTASSIUM SERUM 3.6 mmol/L L=3.4 H=5.2 2823-3 LOINC CHLORIDE SERUM 101 mmol/L L=96 H=110 2075-0 LOINC CARBON DIOXIDE (CO2) 32 mmol/L L=22 H=34 2028-9 LOINC ANION GAP 7.4 mmol/L 43222-7 LOINC CALCIUM SERUM 9.2 mg/dL L=8.2 H=10.2 23069-3 LOINC BILIRUBIN TOTAL 0.2 mg/dL L=0.0 H=1.3 1975-2 LOINC ALK. PHOS. 120 U/L L=46 H=116 6768-6 LOINC H SGOT (AST) 26 U/L L=15 H=37 1920-8 LOINC SGPT (ALT) 21 U/L L=12 H=78 1742-6 LOINC TOTAL PROTEIN 7.5 gm/dL L=6.0 H=8.0 2885-2 INC ALBUMIN 3.5 gm/dL L=3.4 H=5.0 1751-7 [facility] AGE 67 years eGFR (non-Afr.Amer.) 30 mL/min 51243-7 INC eGFR (Afr-Belarusian) 36 mL/min 88777-6 [facility] Social History Type Status Start Date End Date Code Code Syst em Smoking History Current every day smoker [id number] SNOMED CT Sex Female Medications Medication Start Date End Date Route Frequency Dose Code Code System Medication Instructions Home Meds Cyclobenzaprine 10MG Oral Tablet 03/04/2017 09/21/2023 ORAL THREE TIMES A DAY 10 MILLIGRAMS 541903 RxNorm TAKE 10 MILLIGRAMS ORAL THREE TIMES A DAY Cymbalta 60MG Oral Capsule, Delayed Release 03/04/2017 09/21/2023 ORAL DAILY 60 MILLIGRAMS 290028 RxNorm TAKE 60 MILLIGRAMS ORAL DAILY Magnesium 500 MG Oral Tablet 03/04/2017 Unknown ORAL DAILY 500 MILLIGRAMS 290235 RxNorm TAKE 500 MILLIGRAMS ORAL DAILY Cyanocobalamin 1000MCG/1ML Injection Solution 03/21/2018 Unknown INTRA MUSCU LAR MONTHL Y 1 MILLILITERS 179424 RxNorm INJECT 1 MILLILITERS INTRAMUSCUL AR MONTHLY Estradiol 0.5MG Oral Tablet 03/21/2018 09/21/2023 ORAL DAILY 0.5 MILLIGRAMS 326388 RxNorm TAKE 0.5 MILLIGRAMS ORAL DAILY Metoprolol Succinate 25MG Oral Tablet, Extended Release 03/21/2018 Unknown ORAL DAILY 1 TABLET 498862 RxNorm LISA E 1 TABLET ORAL DAILY Sodium Bicarbonate 650MG Oral Tablet 03/21/2018 09/21/2023 ORAL THREE TIMES A DAY 1950 MILLIGRAMS 739202 RxNorm TAKE 1950 MILLIGRAMS ORAL THREE TIMES A DAY Potassium Chloride 20MEQ Oral Tablet, Extended Release 06/05/2018 09/21/2023 ORAL TWICE A DAY 20 MEQ 8087212 RxNorm TAKE 20 MEQ ORAL TWICE A DAY Magnesium 500 MG Oral Tablet 09/12/2018 09/21/2023 ORAL DAILY 1000 MG 741909 RxNorm TAKE 1 000 MG ORAL DAILY Vitamin D2 2000 IU Oral Tablet 09/12/2018 09/21/2023 ORAL WEEKLY 1 TABLET RxNorm TA KE 1 TABLET ORAL WEEKLY Acetaminophen 325MG Oral Tablet 09/25/2023 Unknown ORAL EVERY 6 HOURS 975 MILLIGRAMS 074818 RxNorm TAKE 975 MILLIGRAMS ORAL EVERY 6 HOURS Amitriptyline 10MG Oral Tablet 09/25/2023 Unknown ORAL EVERY EVENIN G 20 MILLIGRAMS 403783 RxNorm TAKE 20 MILLIGRAMS ORAL EVERY EVENING Cyclobenzaprine 10MG Oral Tablet 09/25/2023 Unknown ORAL THREE TIMES A DAY 5 MILLIGRAMS 605912 RxNorm TAKE 5 MILLIGRAMS ORAL THREE TIMES A DAY DULoxetine HCl 30MG Oral Capsule, Delayed Release 09/25/2023 Unknown ORAL DAILY 30 MILLIGRAMS 440326 RxNorm TAKE 30 MILLIGRAMS ORAL DAILY Estradiol 0.5MG Oral Tablet 09/25/2023 Unknown ORAL DAILY 0.5 TABLET 240683 RxNorm TAKE 0 .5 TABLET ORAL DAILY Fluticasone Propionate 0.05MG/1Actuatio n Nasal [place] 09/25/2023 Unknown NASAL TWICE A DAY 1 unit(s) 4668120 RxNorm SPRAY 1 EACH NASAL TWICE A DAY Folic Acid 1MG Oral Tablet 09/25/2023 Unknown ORAL DAILY 1 MILLIGRAMS 786777 RxNorm TAKE 1 MILLIGRAMS ORAL DAILY Loperamide 2 MG Oral Tablet 09/25/2023 Unknown ORAL NEEDED DAILY RxNorm TAKE 1-2 CAPSULE ORAL NEEDED DAILY Nicotine 21MG/24HR Transdermal Patch, Extended Release 09/25/2023 Unknown TRANS DERMA L DAILY 1 unit(s) 831539 RxNorm APPLY 1 EACH TRANSDERMAL DAILY Nicotine 4 MG Oromucosal Gum 09/25/2023 Unknown OROMU COSAL 4 MG 979902 RxNorm 4 MG OROMUCOSAL Ondansetron HCl 4MG Oral Tablet 09/25/2023 Unknown ORAL NEEDED DAILY 4 MILLIGRAMS 512738 RxNorm TAKE 4 MILLIGRAMS ORAL NEEDED DAILY Potassium Chloride 10MEQ Oral Capsule, Extended Release 09/25/2023 Unknown ORAL DAILY 20 MEQ 911740 RxNorm TAKE 20 MEQ ORAL DAILY Sodium Bicarbonate 650MG Oral Tablet 09/25/2023 Unknown ORAL 650 MILLIGRAMS 346418 RxNorm TAKE 650 MILLIGRAMS ORAL Vitamin D3 25MCG Oral Capsule, Liquid Filled 09/25/2023 Unknown ORAL DAILY 25 MCG RxNorm TAKE 25 MCG ORAL DAILY busPIRone 10MG Oral Tablet 09/25/2023 Unknown ORAL TWICE A DAY 10 MILLIGRAMS 453777 RxNorm TAKE 10 MILLIGRAMS ORAL TWICE A [...] Code System ACUTE INJURY OF KIDNEY active 5491338 3711995573 SNOMED-CT DEHYDRATION active 20729157 SNOMED-C T NAUSEA WITH VOMITING active 61641616 SNOMED-CT CROHN'S DISEASE W/ COMPLICATION active 8027659552250524 SNOMED-CT NICOTINE DEPENDENCE active 24664275 SNOMED-CT OPEN WOUND active 277052506 SNOMED-CT CROHNS active 79250229 SNOMED-CT FIBROMYALGIA active 164627026 SNOMED- CT PANCREATITIS active 60812611 SNOMED- CT ALTERED MENTAL STATUS active 85157868 4 SNOMED-CT Allergies and Adverse Reactions Allergy Substance Reaction Severity Start Date Concern Status Code Code System NSAID CKD (SNOMED-CT: null) Active 17269457 SNOMED-CT CHANTIX SEIZURE (SNOMED-CT: null) Active 715895 RxNorm VARENICLINE SEIZURE (SNOMED-CT: null) Active 702083 RxNorm Plan of Treatment LAB DRAW 15MIN [...] Code Sys tem Acute kidney failure, unspecified 12/05/2022 SNOMED-CT Personal Care Team Section Performer Name Performer Role Active Date Inactive Da te
--- OUTSIDE RECORDS SUMMARY | 2024-03-17 12:12 | XMS_ITS ---
Author Organization Unknown Address [address] [place] [phone] Phone Care Team Providers Care Inside Sales Director Name Role Phone LIVAN Parker Attending Unavailable MAYCO Urias Primary Unavailable Social History Type Status Start Date End Date Code Code Syst em Smoking History Current every day smoker 257047015 SNOMED CT Sex Female Medications Medication Start Date End Date Route Frequency Dose Code Code System Medication Instructions Home Meds Cyclobenzaprine 10MG Oral Tablet 03/04/2017 09/21/2023 ORAL THREE TIMES A DAY 10 MILLIGRAMS 978891 RxNorm TAKE 10 MILLIGRAMS ORAL THREE TIMES A DAY Cymbalta 60MG Oral Capsule, Delayed Release 03/04/2017 09/21/2023 ORAL DAILY 60 MILLIGRAMS 676404 RxNorm TAKE 60 MILLIGRAMS ORAL DAILY Magnesium 500 MG Oral Tablet 03/04/2017 Unknown ORAL DAILY 500 MILLIGRAMS 356198 RxNorm TAKE 500 MILLIGRAMS ORAL DAILY Cyanocobalamin 1000MCG/1ML Injection Solution 03/21/2018 Unknown INTRA MUSCU LAR MONTHL Y 1 MILLILITERS 986057 RxNorm INJECT 1 MILLILITERS INTRAMUSCUL AR MONTHLY Estradiol 0.5MG Oral Tablet 03/21/2018 09/21/2023 ORAL DAILY 0.5 MILLIGRAMS 064539 RxNorm TAKE 0.5 MILLIGRAMS ORAL DAILY Metoprolol Succinate 25MG Oral Tablet, Extended Release 03/21/2018 Unknown ORAL DAILY 1 TABLET 665404 RxNorm LISA E 1 TABLET ORAL DAILY Sodium Bicarbonate 650MG Oral Tablet 03/21/2018 09/21/2023 ORAL THREE TIMES A DAY 1950 MILLIGRAMS 219950 RxNorm TAKE 1950 MILLIGRAMS ORAL THREE TIMES A DAY Potassium Chloride 20MEQ Oral Tablet, Extended Release 06/05/2018 09/21/2023 ORAL TWICE A DAY 20 MEQ 6536611 RxNorm TAKE 20 MEQ ORAL TWICE A DAY Magnesium 500 MG Oral Tablet 09/12/2018 09/21/2023 ORAL DAILY 1000 MG 766531 RxNorm TAKE 1 000 MG ORAL DAILY Vitamin D2 2000 IU Oral Tablet 09/12/2018 09/21/2023 ORAL WEEKLY 1 TABLET RxNorm TA KE 1 TABLET ORAL WEEKLY Acetaminophen 325MG Oral Tablet 09/25/2023 Unknown ORAL EVERY 6 HOURS 975 MILLIGRAMS 782932 RxNorm TAKE 975 MILLIGRAMS ORAL EVERY 6 HOURS Amitriptyline 10MG Oral Tablet 09/25/2023 Unknown ORAL EVERY EVENIN G 20 MILLIGRAMS 396451 RxNorm TAKE 20 MILLIGRAMS ORAL EVERY EVENING Cyclobenzaprine 10MG Oral Tablet 09/25/2023 Unknown ORAL THREE TIMES A DAY 5 MILLIGRAMS 792638 RxNorm TAKE 5 MILLIGRAMS ORAL THREE TIMES A DAY DULoxetine HCl 30MG Oral Capsule, Delayed Release 09/25/2023 Unknown ORAL DAILY 30 MILLIGRAMS 078565 RxNorm TAKE 30 MILLIGRAMS ORAL DAILY Estradiol 0.5MG Oral Tablet 09/25/2023 Unknown ORAL DAILY 0.5 TABLET 19750721 RxNorm TAKE 0 .5 TABLET ORAL DAILY Fluticasone Propionate 0.05MG/1Actuatio n Nasal [place] 09/25/2023 Unknown NASAL TWICE A DAY 1 unit(s) 6950474 RxNorm SPRAY 1 EACH NASAL TWICE A DAY Folic Acid 1MG Oral Tablet 09/25/2023 Unknown ORAL DAILY 1 MILLIGRAMS 975425 RxNorm TAKE 1 MILLIGRAMS ORAL DAILY Loperamide 2 MG Oral Tablet 09/25/2023 Unknown ORAL NEEDED DAILY RxNorm TAKE 1-2 CAPSULE ORAL NEEDED DAILY Nicotine 21MG/24HR Transdermal Patch, Extended Release 09/25/2023 Unknown TRANS DERMA L DAILY 1 unit(s) 191921 RxNorm APPLY 1 EACH TRANSDERMAL DAILY Nicotine 4 MG Oromucosal Gum 09/25/2023 Unknown OROMU COSAL 4 MG 897866 RxNorm 4 MG OROMUCOSAL Ondansetron HCl 4MG Oral Tablet 09/25/2023 Unknown ORAL NEEDED DAILY 4 MILLIGRAMS 976879 RxNorm TAKE 4 MILLIGRAMS ORAL NEEDED DAILY Potassium Chloride 10MEQ Oral Capsule, Extended Release 09/25/2023 Unknown ORAL DAILY 20 MEQ 622952 RxNorm TAKE 20 MEQ ORAL DAILY Sodium Bicarbonate 650MG Oral Tablet 09/25/2023 Unknown ORAL 650 MILLIGRAMS 899643 RxNorm TAKE 650 MILLIGRAMS ORAL Vitamin D3 25MCG Oral Capsule, Liquid Filled 09/25/2023 Unknown ORAL DAILY 25 MCG RxNorm TAKE 25 MCG ORAL DAILY busPIRone 10MG Oral Tablet 09/25/2023 Unknown ORAL TWICE A DAY 10 MILLIGRAMS 158618 RxNorm TAKE 10 MILLIGRAMS ORAL TWICE A [...] Code System ACUTE INJURY OF KIDNEY active 4177722 3053300262 SNOMED-CT DEHYDRATION active 40002015 SNOMED-C T NAUSEA WITH VOMITING active 70759229 SNOMED-CT CROHN'S DISEASE W/ COMPLICATION active 4001321580500490 SNOMED-CT NICOTINE DEPENDENCE active 60803098 SNOMED-CT OPEN WOUND active 125337459 SNOMED-CT CROHNS active 94646898 SNOMED-CT FIBROMYALGIA active 452980712 SNOMED- CT PANCREATITIS active 64150449 SNOMED- CT ALTERED MENTAL STATUS active 57720014 4 SNOMED-CT Allergies and Adverse Reactions Allergy Substance Reaction Severity Start Date Concern Status Code Code System NSAID CKD (SNOMED-CT: null) Active 92193608 SNOMED-CT CHANTIX SEIZURE (SNOMED-CT: null) Active 149396 RxNorm VARENICLINE SEIZURE (SNOMED-CT: null) Active 414039 RxNorm Plan of Treatment LAB DRAW 15MIN [...] Diagnosis Start Date Code Code Sys tem Did not wait for treatment 04/29/2023 570935506 S NOMED-CT Personal Care Team Section Performer Name Performer Role Active Date Inactive Da te
--- OUTSIDE RECORDS SUMMARY | 2024-03-17 12:12 | XMS_ITS ---
Author Organization Unknown Address [address] [place] [phone] Phone Care Team Providers Care University Administrative Assistant Name Role Phone CARMELLACHILOMARGARET Parker Attending Unavailable MAYCO Urias Primary Unavailable Results COMPREHENSIVE METABOLIC AGNES [place] (CMP) - Collect Date/Time: 03/31/2023 08:59 [facility] ID: [id number] 8 [place], [place], [address] LOINC: 16935-7 Test Value Unit Reference Range Code Code System Flag GLUCOSE 155 mg/dL L=70 H=116 2345-7 LOINC H BUN 29 mg/dL L=6 H=25 3094-0 LOINC H CREATININE 1.64 mg/dL L=0.51 H=0.95 2160-0 LOINC H SODIUM SERUM 135 mmol/L L=136 H=145 2951-2 LOINC L POTASSIUM SERUM 4.5 mmol/L L=3.4 H=5.2 2823-3 LOINC CHLORIDE SERUM 102 mmol/L L=96 H=110 2075-0 LOINC CARBON DIOXIDE (CO2) 27 mmol/L L=22 H=34 2028-9 LOINC ANION GAP 6.5 mmol/L 74934-3 LOINC CALCIUM SERUM 9.1 mg/dL L=8.2 H=10.2 24814-3 LOINC BILIRUBIN TOTAL 0.3 mg/dL L=0.0 H=1.3 1975-2 LOINC ALK. PHOS. 200 U/L L=46 H=116 6768-6 LOINC H SGOT (AST) 26 U/L L=15 H=37 1920-8 LOINC SGPT (ALT) 33 U/L L=12 H=78 1742-6 LOINC TOTAL PROTEIN 7.5 gm/dL L=6.0 H=8.0 2885-2 LOINC ALBUMIN 3.1 gm/dL L=3.4 H=5.0 1751-7 LOINC L AGE 67 years eGFR (non-Afr.Amer.) 31 mL/min 26168-6 LOINC eGFR (Afr-Australian) 38 mL/min 57331-8 LOINC Social History Type Status Start Date End Date Code Code Syst em Smoking History Current every day smoker 253332781 SNOMED CT Sex Female Medications Medication Start Date End Date Route Frequency Dose Code Code System Medication Instructions Home Meds Cyclobenzaprine 10MG Oral Tablet 03/04/2017 09/21/2023 ORAL THREE TIMES A DAY 10 MILLIGRAMS 393444 RxNorm TAKE 10 MILLIGRAMS ORAL THREE TIMES A DAY Cymbalta 60MG Oral Capsule, Delayed Release 03/04/2017 09/21/2023 ORAL DAILY 60 MILLIGRAMS 818508 RxNorm TAKE 60 MILLIGRAMS ORAL DAILY Magnesium 500 MG Oral Tablet 03/04/2017 Unknown ORAL DAILY 500 MILLIGRAMS 009866 RxNorm TAKE 500 MILLIGRAMS ORAL DAILY Cyanocobalamin 1000MCG/1ML Injection Solution 03/21/2018 Unknown INTRA MUSCU LAR MONTHL Y 1 MILLILITERS 810840 RxNorm INJECT 1 MILLILITERS INTRAMUSCUL AR MONTHLY Estradiol 0.5MG Oral Tablet 03/21/2018 09/21/2023 ORAL DAILY 0.5 MILLIGRAMS 378525 RxNorm TAKE 0.5 MILLIGRAMS ORAL DAILY Metoprolol Succinate 25MG Oral Tablet, Extended Release 03/21/2018 Unknown ORAL DAILY 1 TABLET 975734 RxNorm LISA E 1 TABLET ORAL DAILY Sodium Bicarbonate 650MG Oral Tablet 03/21/2018 09/21/2023 ORAL THREE TIMES A DAY 1950 MILLIGRAMS 794154 RxNorm TAKE 1950 MILLIGRAMS ORAL THREE TIMES A DAY Potassium Chloride 20MEQ Oral Tablet, Extended Release 06/05/2018 09/21/2023 ORAL TWICE A DAY 20 MEQ 1429161 RxNorm TAKE 20 MEQ ORAL TWICE A DAY Magnesium 500 MG Oral Tablet 09/12/2018 09/21/2023 ORAL DAILY 1000 MG 963201 RxNorm TAKE 1 000 MG ORAL DAILY Vitamin D2 2000 IU Oral Tablet 09/12/2018 09/21/2023 ORAL WEEKLY 1 TABLET RxNorm TA KE 1 TABLET ORAL WEEKLY Acetaminophen 325MG Oral Tablet 09/25/2023 Unknown ORAL EVERY 6 HOURS 975 MILLIGRAMS 059271 RxNorm TAKE 975 MILLIGRAMS ORAL EVERY 6 HOURS Amitriptyline 10MG Oral Tablet 09/25/2023 Unknown ORAL EVERY EVENIN G 20 MILLIGRAMS 203921 RxNorm TAKE 20 MILLIGRAMS ORAL EVERY EVENING Cyclobenzaprine 10MG Oral Tablet 09/25/2023 Unknown ORAL THREE TIMES A DAY 5 MILLIGRAMS 425653 RxNorm TAKE 5 MILLIGRAMS ORAL THREE TIMES A DAY DULoxetine HCl 30MG Oral Capsule, Delayed Release 09/25/2023 Unknown ORAL DAILY 30 MILLIGRAMS 681250 RxNorm TAKE 30 MILLIGRAMS ORAL DAILY Estradiol 0.5MG Oral Tablet 09/25/2023 Unknown ORAL DAILY 0.5 TABLET 763882 RxNorm TAKE 0 .5 TABLET ORAL DAILY Fluticasone Propionate 0.05MG/1Actuatio n Nasal [place] 09/25/2023 Unknown NASAL TWICE A DAY 1 unit(s) 7780075 RxNorm SPRAY 1 EACH NASAL TWICE A DAY Folic Acid 1MG Oral Tablet 09/25/2023 Unknown ORAL DAILY 1 MILLIGRAMS 494515 RxNorm TAKE 1 MILLIGRAMS ORAL DAILY Loperamide 2 MG Oral Tablet 09/25/2023 Unknown ORAL NEEDED DAILY RxNorm TAKE 1-2 CAPSULE ORAL NEEDED DAILY Nicotine 21MG/24HR Transdermal Patch, Extended Release 09/25/2023 Unknown TRANS DERMA L DAILY 1 unit(s) 986263 RxNorm APPLY 1 EACH TRANSDERMAL DAILY Nicotine 4 MG Oromucosal Gum 09/25/2023 Unknown OROMU COSAL 4 MG 340398 RxNorm 4 MG OROMUCOSAL Ondansetron HCl 4MG Oral Tablet 09/25/2023 Unknown ORAL NEEDED DAILY 4 MILLIGRAMS 557315 RxNorm TAKE 4 MILLIGRAMS ORAL NEEDED DAILY Potassium Chloride 10MEQ Oral Capsule, Extended Release 09/25/2023 Unknown ORAL DAILY 20 MEQ 412829 RxNorm TAKE 20 MEQ ORAL DAILY Sodium Bicarbonate 650MG Oral Tablet 09/25/2023 Unknown ORAL 650 MILLIGRAMS 039250 RxNorm TAKE 650 MILLIGRAMS ORAL Vitamin D3 25MCG Oral Capsule, Liquid Filled 09/25/2023 Unknown ORAL DAILY 25 MCG RxNorm TAKE 25 MCG ORAL DAILY busPIRone 10MG Oral Tablet 09/25/2023 Unknown ORAL TWICE A DAY 10 MILLIGRAMS 365758 RxNorm TAKE 10 MILLIGRAMS ORAL TWICE A [...] Code System ACUTE INJURY OF KIDNEY active 4645386 6380926969 SNOMED-CT DEHYDRATION active 95845007 SNOMED-C T NAUSEA WITH VOMITING active 86058018 SNOMED-CT CROHN'S DISEASE W/ COMPLICATION active 5855818617547249 SNOMED-CT NICOTINE DEPENDENCE active 40361453 SNOMED-CT OPEN WOUND active 141318359 SNOMED-CT CROHNS active 50548654 SNOMED-CT FIBROMYALGIA active 916136937 SNOMED- CT PANCREATITIS active 80323185 SNOMED- CT ALTERED MENTAL STATUS active 46509745 4 SNOMED-CT Allergies and Adverse Reactions Allergy Substance Reaction Severity Start Date Concern Status Code Code System NSAID CKD (SNOMED-CT: null) Active 77372728 SNOMED-CT CHANTIX SEIZURE (SNOMED-CT: null) Active 392787 RxNorm VARENICLINE SEIZURE (SNOMED-CT: null) Active 631600 RxNorm Plan of Treatment LAB DRAW 15MIN [...] Code Sys tem Acute renal failure syndrome 03/31/2023 74427564 SNOMED-CT Personal Care Team Section Performer Name Performer Role Active Date Inactive Da te
--- OUTSIDE RECORDS SUMMARY | 2024-03-17 12:12 | XMS_ITS ---
Author Organization Unknown Address [address] [place] [address] [phone] Phone Care Team Providers Care Usability Engineer Name Role Phone SPIKE Becerra Attending Unavailable MAYCO Urias Primary Unavailable Results CT LDCT FOR LUNG CA SCREEN - Completed: 03/31/2023 09:21 LOINC: RADIOLOGY [place], [place] [address] PACS DIRECTOR TRAFFIC AND PLANNING REPORT Patient Name: DAILY NEVILLE MRN: Sex: : Age: [id number] F 1955 67 Account: Accession: Admit: StayType: [id number] 03/31/2023 O/P Ordered: Order ID: Submitted: Ordering Provider: 03/31/2023 08:59 [id number] KT SONDRA LALA Completed: Technologist: Resulted: 03/31/2023 09:21 MLL 03/31/2023 09:30 Study Description: CT LDCT FOR LUNG CA SCREEN Study Reason: SMOKER Technique: Low dose screening technique, axial, coronal and sagittal and MIP reconstructions were performed. Comparison: 21 November 2019 FINDINGS: Tracheobronchial tree: Patent where visualized. No bronchial wall thickening. No mucous plugging. Pulmonary parenchyma: Moderate emphysematous changes. No consolidation or dominant measurable mass. Lung Nodules: Calcified left lower lobe granuloma. Pleura: No effusion. No pneumothorax. Heart: The heart is not dilated. Mild coronary artery calcifications are seen. Aorta: Ascending aorta measures 3 cm, unchanged..Atherosclerotic calcifications. Lymph nodes: No enlarged lymph nodes. Upper abdomen: No acute findings.. Bones: Unremarkable for age. Soft Tissues: Unremarkable. IMPRESSION: No suspicious pulmonary nodules. Lung RADS category 1. Lung-RADS 1.0 CATEGORIES: Category 0 - Prior chest CT exam(s) being located for comparison. Category 1 - Annual screening in 12 months. No nodules or definitely benign nodules. Category 2 - Annual screening in 12 months. Benign appearance. Nodules with low likelihood of becoming active cancer. Category 3 - 6-month follow-up. Probably benign. Short-term follow-up suggested. Nodules with low likelihood of becoming active cancer. Category 4A - 3-month follow-up and CT/PET if >8 mm in size. Suspicious finding. Findings which require additional testing. Category 4B - Findings which require additional testing and tissue sampling. Modifier S- Potentially clinically significant findings (non lung cancer) Report Digitally Signed by Karlie Shepherd on 03/31/2023 09:30 AM EST MM SCREENING BILAT MAMMO W T RICH W CAD - Completed: 03/31/2023 09:40 LOINC: RADIOLOGY [place], [place] [address] PACS DIRECTOR TRAFFIC AND PLANNING REPORT Patient Name: DAILY NEVILLE MRN: Sex: : Age: [id number] F 1955 67 Account: Accession: Admit: StayType: [id number] 03/31/2023 O/P Ordered: Order ID: Submitted: Ordering Provider: 03/31/2023 08:59 [id number] SONDRA PATTERSON Completed: Technologist: Resulted: 03/31/2023 09:41 SCP 03/31/2023 09:48 Study Description: MM SCREENING BILAT MAMMO W GERRI W CAD Study Reason: Screening COMPARISON: 2013 through 2021 TECHNIQUE: 2D digital images with tomosynthesis and CAD FINDINGS: There has been an increase in breast density and decrease in breast size since the prior exam which could be secondary to weight loss. Masses/Architectural Distortion: None seen. Microcalcifications: No suspicious pleomorphic-type are seen. Skin Thickening/Nipple Retraction: None. Prominent right-sided vessels are noted. A cylindrical opacity is again noted in the posterior superior right breast. IMPRESSION: 1. no specific features of malignancy noted. 2. Unless there is more urgent need, annual screening mammography is recommended, as per [employer] guidelines. BI-RADS Category 1:Negative Breast Density - Category D:Extremely Dense Breast Density Category D: The mammogram demonstrates the patient's breast tissue is dense. Dense breast tissue is very common and is not abnormal but dense breast tissue can make it harder to find cancer on a mammogram. Also, dense breast tissue may increase their breast cancer risk. This information about the result of the mammogram report was provided to the patient to raise their awareness. Use this report when you speak with the patient about their risks for breast cancer, which includes their family history. At that time, you may recommend for more screening tests (Ultrasound or MRI) as they might be useful based on their risk. A negative radiographic report should not delay biopsy if a dominant or clinically suspicious mass is present. Up to ten percent of cancers are not identified on mammography. A negative report may reinforce clinical impression. Adenosis and dense breasts may obscure an underlying neoplasm. False positive reports average 6 to 10%. Report Digitally Signed by Karlie Shepherd on 03/31/2023 09:48 AM EST Social History Type Status Start Date End Date Code Code Syst em Smoking History Current every day smoker [id number] SNOMED CT Sex Female Medications Medication Start Date End Date Route Frequency Dose Code Code System Medication Instructions Home Meds Cyclobenzaprine 10MG Oral Tablet 03/04/2017 09/21/2023 ORAL THREE TIMES A DAY 10 MILLIGRAMS 990278 RxNorm TAKE 10 MILLIGRAMS ORAL THREE TIMES A DAY Cymbalta 60MG Oral Capsule, Delayed Release 03/04/2017 09/21/2023 ORAL DAILY 60 MILLIGRAMS 546172 RxNorm TAKE 60 MILLIGRAMS ORAL DAILY Magnesium 500 MG Oral Tablet 03/04/2017 Unknown ORAL DAILY 500 MILLIGRAMS 428749 RxNorm TAKE 500 MILLIGRAMS ORAL DAILY Cyanocobalamin 1000MCG/1ML Injection Solution 03/21/2018 Unknown INTRA MUSCU LAR MONTHL Y 1 MILLILITERS 897970 RxNorm INJECT 1 MILLILITERS INTRAMUSCUL AR MONTHLY Estradiol 0.5MG Oral Tablet 03/21/2018 09/21/2023 ORAL DAILY 0.5 MILLIGRAMS 447183 RxNorm TAKE 0.5 MILLIGRAMS ORAL DAILY Metoprolol Succinate 25MG Oral Tablet, Extended Release 03/21/2018 Unknown ORAL DAILY 1 TABLET 590414 RxNorm LISA E 1 TABLET ORAL DAILY Sodium Bicarbonate 650MG Oral Tablet 03/21/2018 09/21/2023 ORAL THREE TIMES A DAY 1950 MILLIGRAMS 485184 RxNorm TAKE 1950 MILLIGRAMS ORAL THREE TIMES A DAY Potassium Chloride 20MEQ Oral Tablet, Extended Release 06/05/2018 09/21/2023 ORAL TWICE A DAY 20 MEQ 1656418 RxNorm TAKE 20 MEQ ORAL TWICE A DAY Magnesium 500 MG Oral Tablet 09/12/2018 09/21/2023 ORAL DAILY 1000 MG 244473 RxNorm TAKE 1 000 MG ORAL DAILY Vitamin D2 2000 IU Oral Tablet 09/12/2018 09/21/2023 ORAL WEEKLY 1 TABLET RxNorm TA KE 1 TABLET ORAL WEEKLY Acetaminophen 325MG Oral Tablet 09/25/2023 Unknown ORAL EVERY 6 HOURS 975 MILLIGRAMS 794167 RxNorm TAKE 975 MILLIGRAMS ORAL EVERY 6 HOURS Amitriptyline 10MG Oral Tablet 09/25/2023 Unknown ORAL EVERY EVENIN G 20 MILLIGRAMS 865304 RxNorm TAKE 20 MILLIGRAMS ORAL EVERY EVENING Cyclobenzaprine 10MG Oral Tablet 09/25/2023 Unknown ORAL THREE TIMES A DAY 5 MILLIGRAMS 138147 RxNorm TAKE 5 MILLIGRAMS ORAL THREE TIMES A DAY DULoxetine HCl 30MG Oral Capsule, Delayed Release 09/25/2023 Unknown ORAL DAILY 30 MILLIGRAMS 304540 RxNorm TAKE 30 MILLIGRAMS ORAL DAILY Estradiol 0.5MG Oral Tablet 09/25/2023 Unknown ORAL DAILY 0.5 TABLET 19750721 RxNorm TAKE 0 .5 TABLET ORAL DAILY Fluticasone Propionate 0.05MG/1Actuatio n Nasal [place] 09/25/2023 Unknown NASAL TWICE A DAY 1 unit(s) 2486438 RxNorm SPRAY 1 EACH NASAL TWICE A DAY Folic Acid 1MG Oral Tablet 09/25/2023 Unknown ORAL DAILY 1 MILLIGRAMS 724032 RxNorm TAKE 1 MILLIGRAMS ORAL DAILY Loperamide 2 MG Oral Tablet 09/25/2023 Unknown ORAL NEEDED DAILY RxNorm TAKE 1-2 CAPSULE ORAL NEEDED DAILY Nicotine 21MG/24HR Transdermal Patch, Extended Release 09/25/2023 Unknown TRANS DERMA L DAILY 1 unit(s) 189902 RxNorm APPLY 1 EACH TRANSDERMAL DAILY Nicotine 4 MG Oromucosal Gum 09/25/2023 Unknown OROMU COSAL 4 MG 451120 RxNorm 4 MG OROMUCOSAL Ondansetron HCl 4MG Oral Tablet 09/25/2023 Unknown ORAL NEEDED DAILY 4 MILLIGRAMS 660144 RxNorm TAKE 4 MILLIGRAMS ORAL NEEDED DAILY Potassium Chloride 10MEQ Oral Capsule, Extended Release 09/25/2023 Unknown ORAL DAILY 20 MEQ 991306 RxNorm TAKE 20 MEQ ORAL DAILY Sodium Bicarbonate 650MG Oral Tablet 09/25/2023 Unknown ORAL 650 MILLIGRAMS 598481 RxNorm TAKE 650 MILLIGRAMS ORAL Vitamin D3 25MCG Oral Capsule, Liquid Filled 09/25/2023 Unknown ORAL DAILY 25 MCG RxNorm TAKE 25 MCG ORAL DAILY busPIRone 10MG Oral Tablet 09/25/2023 Unknown ORAL TWICE A DAY 10 MILLIGRAMS 183204 RxNorm TAKE 10 MILLIGRAMS ORAL TWICE A [...] Code System ACUTE INJURY OF KIDNEY active 3929061 [id number] SNOMED-CT DEHYDRATION active 18854687 SNOMED-C T NAUSEA WITH VOMITING active 97376326 SNOMED-CT CROHN'S DISEASE W/ COMPLICATION active 3275329588823107 SNOMED-CT NICOTINE DEPENDENCE active 90790989 SNOMED-CT OPEN WOUND active 439443840 SNOMED-CT CROHNS active 32939819 SNOMED-CT FIBROMYALGIA active 760430116 SNOMED- CT PANCREATITIS active 41470639 SNOMED- CT ALTERED MENTAL STATUS active 64039871 4 SNOMED-CT Allergies and Adverse Reactions Allergy Substance Reaction Severity Start Date Concern Status Code Code System NSAID CKD (SNOMED-CT: null) Active 89113399 SNOMED-CT CHANTIX SEIZURE (SNOMED-CT: null) Active 783083 RxNorm VARENICLINE SEIZURE (SNOMED-CT: null) Active 734356 RxNorm Plan of Treatment LAB DRAW 15MIN [...] Diagnosis Start Date Code Code Sys tem Adult health examination 03/31/2023 [id number] [employer]-CT Personal Care Team Section Performer Name Performer Role Active Date Inactive Gio basurto
--- OUTSIDE RECORDS SUMMARY | 2024-03-17 12:13 | XMS_ITS ---
Author Organization Unknown Address [address] [place] [phone] Phone Care Team Providers Care [employer] Assistant Football Coach Name Role Phone ANUM Vail Attending Unavailable MAYCO Urias Primary Unavailable Results BD DXA BONE DENSITY HIP AND SPINE - Completed: 05/20/2023 10:47 [facility] RAD[facility]OLOGY [place], [place] [address] PACS POMOLOGY TEACHER REPORT Patient Name: DAILY NEVILLE MRN: Sex: : Age: [id number] F 1955 67 Account: Accession: Admit: StayType: [id number] 05/20/2023 O/P Ordered: Order ID: Submitted: Ordering Provider: 05/20/2023 10:31 [id number] KT DINORA ROWAN Completed: Technologist: Resulted: 05/20/2023 10:47 [facility] 05/20/2023 15:29 Study Description: BD DXA BONE DENSITY HIP AND SPINE Study Reason: OSTEOPENIA TECHNIQUE: Performed on a Hologic unit. COMPARISON: Prior DEXA scan of December 2021 FINDINGS: Lumbar Spine total T-score: -2.5. Prior reading in December 2021 was -1.9. Hip total T-score: -1.6. Prior reading in December 2021 was -1.5. Independent reading at the femoral neck yields a T score of -3.0. IMPRESSION: Bone mineral density measures in the osteoporosis Range. Fracture risk is high. Note: Any spine fracture indicates 5x risk for subsequent spine fracture and 2x risk for subsequent hip fracture. World Health Organization criteria for BMD interpretation classify patients: Normal...... T- Score at or above -1.0 Osteopenic... T- Score between -1.0 and -2.5 Osteoporosis... T-Score at or below -2.5 No exams were available for comparison Report Digitally Signed by Navi Hooks on 05/20/2023 03:29 PM EST Social History Type Status Start Date End Date Code Code Syst em Smoking History Current every day smoker [id number] SNOMED CT Sex Female Medications Medication Start Date End Date Route Frequency Dose Code Code System Medication Instructions Home Meds Cyclobenzaprine 10MG Oral Tablet 03/04/2017 09/21/2023 ORAL THREE TIMES A DAY 10 MILLIGRAMS 145042 RxNorm TAKE 10 MILLIGRAMS ORAL THREE TIMES A DAY Cymbalta 60MG Oral Capsule, Delayed Release 03/04/2017 09/21/2023 ORAL DAILY 60 MILLIGRAMS 353566 RxNorm TAKE 60 MILLIGRAMS ORAL DAILY Magnesium 500 MG Oral Tablet 03/04/2017 Unknown ORAL DAILY 500 MILLIGRAMS 731448 RxNorm TAKE 500 MILLIGRAMS ORAL DAILY Cyanocobalamin 1000MCG/1ML Injection Solution 03/21/2018 Unknown INTRA MUSCU LAR MONTHL Y 1 MILLILITERS 992863 RxNorm INJECT 1 MILLILITERS INTRAMUSCUL AR MONTHLY Estradiol 0.5MG Oral Tablet 03/21/2018 09/21/2023 ORAL DAILY 0.5 MILLIGRAMS 912111 RxNorm TAKE 0.5 MILLIGRAMS ORAL DAILY Metoprolol Succinate 25MG Oral Tablet, Extended Release 03/21/2018 Unknown ORAL DAILY 1 TABLET 645668 RxNorm LISA E 1 TABLET ORAL DAILY Sodium Bicarbonate 650MG Oral Tablet 03/21/2018 09/21/2023 ORAL THREE TIMES A DAY 1950 MILLIGRAMS 771275 RxNorm TAKE 1950 MILLIGRAMS ORAL THREE TIMES A DAY Potassium Chloride 20MEQ Oral Tablet, Extended Release 06/05/2018 09/21/2023 ORAL TWICE A DAY 20 MEQ 9249957 RxNorm TAKE 20 MEQ ORAL TWICE A DAY Magnesium 500 MG Oral Tablet 09/12/2018 09/21/2023 ORAL DAILY 1000 MG 806343 RxNorm TAKE 1 000 MG ORAL DAILY Vitamin D2 2000 IU Oral Tablet 09/12/2018 09/21/2023 ORAL WEEKLY 1 TABLET RxNorm TA KE 1 TABLET ORAL WEEKLY Acetaminophen 325MG Oral Tablet 09/25/2023 Unknown ORAL EVERY 6 HOURS 975 MILLIGRAMS 968930 RxNorm TAKE 975 MILLIGRAMS ORAL EVERY 6 HOURS Amitriptyline 10MG Oral Tablet 09/25/2023 Unknown ORAL EVERY EVENIN G 20 MILLIGRAMS 512322 RxNorm TAKE 20 MILLIGRAMS ORAL EVERY EVENING Cyclobenzaprine 10MG Oral Tablet 09/25/2023 Unknown ORAL THREE TIMES A DAY 5 MILLIGRAMS 681733 RxNorm TAKE 5 MILLIGRAMS ORAL THREE TIMES A DAY DULoxetine HCl 30MG Oral Capsule, Delayed Release 09/25/2023 Unknown ORAL DAILY 30 MILLIGRAMS 066271 RxNorm TAKE 30 MILLIGRAMS ORAL DAILY Estradiol 0.5MG Oral Tablet 09/25/2023 Unknown ORAL DAILY 0.5 TABLET 888737 RxNorm TAKE 0 .5 TABLET ORAL DAILY Fluticasone Propionate 0.05MG/1Actuatio n Nasal [place] 09/25/2023 Unknown NASAL TWICE A DAY 1 unit(s) 6310604 RxNorm SPRAY 1 EACH NASAL TWICE A DAY Folic Acid 1MG Oral Tablet 09/25/2023 Unknown ORAL DAILY 1 MILLIGRAMS 448382 RxNorm TAKE 1 MILLIGRAMS ORAL DAILY Loperamide 2 MG Oral Tablet 09/25/2023 Unknown ORAL NEEDED DAILY RxNorm TAKE 1-2 CAPSULE ORAL NEEDED DAILY Nicotine 21MG/24HR Transdermal Patch, Extended Release 09/25/2023 Unknown TRANS DERMA L DAILY 1 unit(s) 692214 RxNorm APPLY 1 EACH TRANSDERMAL DAILY Nicotine 4 MG Oromucosal Gum 09/25/2023 Unknown OROMU COSAL 4 MG 847011 RxNorm 4 MG OROMUCOSAL Ondansetron HCl 4MG Oral Tablet 09/25/2023 Unknown ORAL NEEDED DAILY 4 MILLIGRAMS 613272 RxNorm TAKE 4 MILLIGRAMS ORAL NEEDED DAILY Potassium Chloride 10MEQ Oral Capsule, Extended Release 09/25/2023 Unknown ORAL DAILY 20 MEQ 607345 RxNorm TAKE 20 MEQ ORAL DAILY Sodium Bicarbonate 650MG Oral Tablet 09/25/2023 Unknown ORAL 650 MILLIGRAMS 571872 RxNorm TAKE 650 MILLIGRAMS ORAL Vitamin D3 25MCG Oral Capsule, Liquid Filled 09/25/2023 Unknown ORAL DAILY 25 MCG RxNorm TAKE 25 MCG ORAL DAILY busPIRone 10MG Oral Tablet 09/25/2023 Unknown ORAL TWICE A DAY 10 MILLIGRAMS 409559 RxNorm TAKE 10 MILLIGRAMS ORAL TWICE A [...] Code System ACUTE INJURY OF KIDNEY active 0030791 0829582625 SNOMED-CT DEHYDRATION active 69199467 SNOMED-C T NAUSEA WITH VOMITING active 91727717 SNOMED-CT CROHN'S DISEASE W/ COMPLICATION active 4118179721346206 SNOMED-CT NICOTINE DEPENDENCE active 74711511 SNOMED-CT OPEN WOUND active 682839866 SNOMED-CT CROHNS active 47109487 SNOMED-CT FIBROMYALGIA active 123116606 SNOMED- CT PANCREATITIS active 92081913 SNOMED- CT ALTERED MENTAL STATUS active 48833392 4 SNOMED-CT Allergies and Adverse Reactions Allergy Substance Reaction Severity Start Date Concern Status Code Code System NSAID CKD (SNOMED-CT: null) Active 79718398 SNOMED-CT CHANTIX SEIZURE (SNOMED-CT: null) Active 185953 RxNorm VARENICLINE SEIZURE (SNOMED-CT: null) Active 150172 RxNorm Plan of Treatment LAB DRAW 15MIN [...] Diagnosis Start Date Code Code Sys tem Disorder of bone 05/20/2023 76741300 SNOMED-CT Personal Care Team Section Performer Name Performer Role Active Date Inactive Da te
--- OUTSIDE RECORDS SUMMARY | 2024-03-17 12:13 | XMS_ITS ---
Author Organization Unknown Address [address] [place] [phone] Phone Care Team Providers Care Last Chalker Name Role Phone LIVAN Parker Attending Unavailable MAYCO Urias Primary Unavailable Social History Type Status Start Date End Date Code Code Syst em Smoking History Current every day smoker 716834157 SNOMED CT Sex Female Medications Medication Start Date End Date Route Frequency Dose Code Code System Medication Instructions Home Meds Cyclobenzaprine 10MG Oral Tablet 03/04/2017 09/21/2023 ORAL THREE TIMES A DAY 10 MILLIGRAMS 965875 RxNorm TAKE 10 MILLIGRAMS ORAL THREE TIMES A DAY Cymbalta 60MG Oral Capsule, Delayed Release 03/04/2017 09/21/2023 ORAL DAILY 60 MILLIGRAMS 107390 RxNorm TAKE 60 MILLIGRAMS ORAL DAILY Magnesium 500 MG Oral Tablet 03/04/2017 Unknown ORAL DAILY 500 MILLIGRAMS 846511 RxNorm TAKE 500 MILLIGRAMS ORAL DAILY Cyanocobalamin 1000MCG/1ML Injection Solution 03/21/2018 Unknown INTRA MUSCU LAR MONTHL Y 1 MILLILITERS 400381 RxNorm INJECT 1 MILLILITERS INTRAMUSCUL AR MONTHLY Estradiol 0.5MG Oral Tablet 03/21/2018 09/21/2023 ORAL DAILY 0.5 MILLIGRAMS 553740 RxNorm TAKE 0.5 MILLIGRAMS ORAL DAILY Metoprolol Succinate 25MG Oral Tablet, Extended Release 03/21/2018 Unknown ORAL DAILY 1 TABLET 858521 RxNorm LISA E 1 TABLET ORAL DAILY Sodium Bicarbonate 650MG Oral Tablet 03/21/2018 09/21/2023 ORAL THREE TIMES A DAY 1950 MILLIGRAMS 071984 RxNorm TAKE 1950 MILLIGRAMS ORAL THREE TIMES A DAY Potassium Chloride 20MEQ Oral Tablet, Extended Release 06/05/2018 09/21/2023 ORAL TWICE A DAY 20 MEQ 6684857 RxNorm TAKE 20 MEQ ORAL TWICE A DAY Magnesium 500 MG Oral Tablet 09/12/2018 09/21/2023 ORAL DAILY 1000 MG 537321 RxNorm TAKE 1 000 MG ORAL DAILY Vitamin D2 2000 IU Oral Tablet 09/12/2018 09/21/2023 ORAL WEEKLY 1 TABLET RxNorm TA KE 1 TABLET ORAL WEEKLY Acetaminophen 325MG Oral Tablet 09/25/2023 Unknown ORAL EVERY 6 HOURS 975 MILLIGRAMS 514668 RxNorm TAKE 975 MILLIGRAMS ORAL EVERY 6 HOURS Amitriptyline 10MG Oral Tablet 09/25/2023 Unknown ORAL EVERY EVENIN G 20 MILLIGRAMS 586537 RxNorm TAKE 20 MILLIGRAMS ORAL EVERY EVENING Cyclobenzaprine 10MG Oral Tablet 09/25/2023 Unknown ORAL THREE TIMES A DAY 5 MILLIGRAMS 874286 RxNorm TAKE 5 MILLIGRAMS ORAL THREE TIMES A DAY DULoxetine HCl 30MG Oral Capsule, Delayed Release 09/25/2023 Unknown ORAL DAILY 30 MILLIGRAMS 667976 RxNorm TAKE 30 MILLIGRAMS ORAL DAILY Estradiol 0.5MG Oral Tablet 09/25/2023 Unknown ORAL DAILY 0.5 TABLET 19750721 RxNorm TAKE 0 .5 TABLET ORAL DAILY Fluticasone Propionate 0.05MG/1Actuatio n Nasal [place] 09/25/2023 Unknown NASAL TWICE A DAY 1 unit(s) 0726783 RxNorm SPRAY 1 EACH NASAL TWICE A DAY Folic Acid 1MG Oral Tablet 09/25/2023 Unknown ORAL DAILY 1 MILLIGRAMS 085297 RxNorm TAKE 1 MILLIGRAMS ORAL DAILY Loperamide 2 MG Oral Tablet 09/25/2023 Unknown ORAL NEEDED DAILY RxNorm TAKE 1-2 CAPSULE ORAL NEEDED DAILY Nicotine 21MG/24HR Transdermal Patch, Extended Release 09/25/2023 Unknown TRANS DERMA L DAILY 1 unit(s) 990881 RxNorm APPLY 1 EACH TRANSDERMAL DAILY Nicotine 4 MG Oromucosal Gum 09/25/2023 Unknown OROMU COSAL 4 MG 498838 RxNorm 4 MG OROMUCOSAL Ondansetron HCl 4MG Oral Tablet 09/25/2023 Unknown ORAL NEEDED DAILY 4 MILLIGRAMS 534129 RxNorm TAKE 4 MILLIGRAMS ORAL NEEDED DAILY Potassium Chloride 10MEQ Oral Capsule, Extended Release 09/25/2023 Unknown ORAL DAILY 20 MEQ 752060 RxNorm TAKE 20 MEQ ORAL DAILY Sodium Bicarbonate 650MG Oral Tablet 09/25/2023 Unknown ORAL 650 MILLIGRAMS 502020 RxNorm TAKE 650 MILLIGRAMS ORAL Vitamin D3 25MCG Oral Capsule, Liquid Filled 09/25/2023 Unknown ORAL DAILY 25 MCG RxNorm TAKE 25 MCG ORAL DAILY busPIRone 10MG Oral Tablet 09/25/2023 Unknown ORAL TWICE A DAY 10 MILLIGRAMS 782753 RxNorm TAKE 10 MILLIGRAMS ORAL TWICE A [...] Code System ACUTE INJURY OF KIDNEY active 8359596 4302200122 SNOMED-CT DEHYDRATION active 75034213 SNOMED-C T NAUSEA WITH VOMITING active 40534845 SNOMED-CT CROHN'S DISEASE W/ COMPLICATION active 3198281124773904 SNOMED-CT NICOTINE DEPENDENCE active 34640838 SNOMED-CT OPEN WOUND active 945343797 SNOMED-CT CROHNS active 12548114 SNOMED-CT FIBROMYALGIA active 595831142 SNOMED- CT PANCREATITIS active 55714494 SNOMED- CT ALTERED MENTAL STATUS active 27248831 4 SNOMED-CT Allergies and Adverse Reactions Allergy Substance Reaction Severity Start Date Concern Status Code Code System NSAID CKD (SNOMED-CT: null) Active 54595054 SNOMED-CT CHANTIX SEIZURE (SNOMED-CT: null) Active 602999 RxNorm VARENICLINE SEIZURE (SNOMED-CT: null) Active 127418 RxNorm Plan of Treatment LAB DRAW 15MIN [...] Diagnosis Start Date Code Code Sys tem 05/19/2023 [id number] SNOMED-CT Personal Care Team Section Performer Name Performer Role Active Date Inactive Da te
--- OUTSIDE RECORDS SUMMARY | 2024-03-17 12:14 | XMS_ITS ---
Author Organization Unknown Address [address] [place] [phone] Phone Care Team Providers Care Brickmason Name Role Phone CARMELLACHILOMARGARET Parker Attending Unavailable MAYCO Urias Primary Unavailable Results COMPREHENSIVE METABOLIC AGNES [place] (CMP) - Collect Date/Time: 06/03/2023 13:14 [facility] ID: [id number] 8 [place], [place], [address] LOINC: 44288-1 Test Value Unit Reference Range Code Code System Flag GLUCOSE 92 mg/dL L=70 H=116 2345-7 LOINC BUN 29 mg/dL L=6 H=25 3094-0 LOINC H CREATININE 1.59 mg/dL L=0.51 H=0.95 2160-0 LOINC H SODIUM SERUM 141 mmol/L L=136 H=145 2951-2 LOINC POTASSIUM SERUM 4.0 mmol/L L=3.4 H=5.2 2823-3 LOINC CHLORIDE SERUM 103 mmol/L L=96 H=110 2075-0 LOINC CARBON DIOXIDE (CO2) 32 mmol/L L=22 H=34 2028-9 LOINC ANION GAP 6.1 mmol/L 93516-0 LOINC CALCIUM SERUM 8.9 mg/dL L=8.2 H=10.2 17547-8 LOINC BILIRUBIN TOTAL 0.3 mg/dL L=0.0 H=1.3 1975-2 LOINC ALK. PHOS. 117 U/L L=46 H=116 6768-6 LOINC H SGOT (AST) 21 U/L L=15 H=37 1920-8 LOINC SGPT (ALT) 29 U/L L=12 H=78 1742-6 LOINC TOTAL PROTEIN 7.1 gm/dL L=6.0 H=8.0 2885-2 [facility] ALBUMIN 3.6 gm/dL L=3.4 H=5.0 1751-7 [facility] AGE 67 years eGFR (non-Afr.Amer.) 32 mL/min 72466-2 [facility] eGFR (Afr-Estonian) 39 mL/min 95332-4 [facility] Social History Type Status Start Date End Date Code Code Syst em Smoking History Current every day smoker [id number] SNOMED CT Sex Female Medications Medication Start Date End Date Route Frequency Dose Code Code System Medication Instructions Home Meds Cyclobenzaprine 10MG Oral Tablet 03/04/2017 09/21/2023 ORAL THREE TIMES A DAY 10 MILLIGRAMS 448984 RxNorm TAKE 10 MILLIGRAMS ORAL THREE TIMES A DAY Cymbalta 60MG Oral Capsule, Delayed Release 03/04/2017 09/21/2023 ORAL DAILY 60 MILLIGRAMS 466986 RxNorm TAKE 60 MILLIGRAMS ORAL DAILY Magnesium 500 MG Oral Tablet 03/04/2017 Unknown ORAL DAILY 500 MILLIGRAMS 740947 RxNorm TAKE 500 MILLIGRAMS ORAL DAILY Cyanocobalamin 1000MCG/1ML Injection Solution 03/21/2018 Unknown INTRA MUSCU LAR MONTHL Y 1 MILLILITERS 117438 RxNorm INJECT 1 MILLILITERS INTRAMUSCUL AR MONTHLY Estradiol 0.5MG Oral Tablet 03/21/2018 09/21/2023 ORAL DAILY 0.5 MILLIGRAMS 057796 RxNorm TAKE 0.5 MILLIGRAMS ORAL DAILY Metoprolol Succinate 25MG Oral Tablet, Extended Release 03/21/2018 Unknown ORAL DAILY 1 TABLET 559479 RxNorm LISA E 1 TABLET ORAL DAILY Sodium Bicarbonate 650MG Oral Tablet 03/21/2018 09/21/2023 ORAL THREE TIMES A DAY 1950 MILLIGRAMS 974369 RxNorm TAKE 1950 MILLIGRAMS ORAL THREE TIMES A DAY Potassium Chloride 20MEQ Oral Tablet, Extended Release 06/05/2018 09/21/2023 ORAL TWICE A DAY 20 MEQ 3917145 RxNorm TAKE 20 MEQ ORAL TWICE A DAY Magnesium 500 MG Oral Tablet 09/12/2018 09/21/2023 ORAL DAILY 1000 MG 800203 RxNorm TAKE 1 000 MG ORAL DAILY Vitamin D2 2000 IU Oral Tablet 09/12/2018 09/21/2023 ORAL WEEKLY 1 TABLET RxNorm TA KE 1 TABLET ORAL WEEKLY Acetaminophen 325MG Oral Tablet 09/25/2023 Unknown ORAL EVERY 6 HOURS 975 MILLIGRAMS 615413 RxNorm TAKE 975 MILLIGRAMS ORAL EVERY 6 HOURS Amitriptyline 10MG Oral Tablet 09/25/2023 Unknown ORAL EVERY EVENIN G 20 MILLIGRAMS 272518 RxNorm TAKE 20 MILLIGRAMS ORAL EVERY EVENING Cyclobenzaprine 10MG Oral Tablet 09/25/2023 Unknown ORAL THREE TIMES A DAY 5 MILLIGRAMS 305633 RxNorm TAKE 5 MILLIGRAMS ORAL THREE TIMES A DAY DULoxetine HCl 30MG Oral Capsule, Delayed Release 09/25/2023 Unknown ORAL DAILY 30 MILLIGRAMS 176101 RxNorm TAKE 30 MILLIGRAMS ORAL DAILY Estradiol 0.5MG Oral Tablet 09/25/2023 Unknown ORAL DAILY 0.5 TABLET 051611 RxNorm TAKE 0 .5 TABLET ORAL DAILY Fluticasone Propionate 0.05MG/1Actuatio n Nasal [place] 09/25/2023 Unknown NASAL TWICE A DAY 1 unit(s) 0616332 RxNorm SPRAY 1 EACH NASAL TWICE A DAY Folic Acid 1MG Oral Tablet 09/25/2023 Unknown ORAL DAILY 1 MILLIGRAMS 067846 RxNorm TAKE 1 MILLIGRAMS ORAL DAILY Loperamide 2 MG Oral Tablet 09/25/2023 Unknown ORAL NEEDED DAILY RxNorm TAKE 1-2 CAPSULE ORAL NEEDED DAILY Nicotine 21MG/24HR Transdermal Patch, Extended Release 09/25/2023 Unknown TRANS DERMA L DAILY 1 unit(s) 145760 RxNorm APPLY 1 EACH TRANSDERMAL DAILY Nicotine 4 MG Oromucosal Gum 09/25/2023 Unknown OROMU COSAL 4 MG 234436 RxNorm 4 MG OROMUCOSAL Ondansetron HCl 4MG Oral Tablet 09/25/2023 Unknown ORAL NEEDED DAILY 4 MILLIGRAMS 047899 RxNorm TAKE 4 MILLIGRAMS ORAL NEEDED DAILY Potassium Chloride 10MEQ Oral Capsule, Extended Release 09/25/2023 Unknown ORAL DAILY 20 MEQ 354887 RxNorm TAKE 20 MEQ ORAL DAILY Sodium Bicarbonate 650MG Oral Tablet 09/25/2023 Unknown ORAL 650 MILLIGRAMS 619761 RxNorm TAKE 650 MILLIGRAMS ORAL Vitamin D3 25MCG Oral Capsule, Liquid Filled 09/25/2023 Unknown ORAL DAILY 25 MCG RxNorm TAKE 25 MCG ORAL DAILY busPIRone 10MG Oral Tablet 09/25/2023 Unknown ORAL TWICE A DAY 10 MILLIGRAMS 318868 RxNorm TAKE 10 MILLIGRAMS ORAL TWICE A [...] Code System ACUTE INJURY OF KIDNEY active 9552833 [id number] SNOMED-CT DEHYDRATION active 72117927 SNOMED-C T NAUSEA WITH VOMITING active 27604521 SNOMED-CT CROHN'S DISEASE W/ COMPLICATION active 2372925563292989 SNOMED-CT NICOTINE DEPENDENCE active 91802707 SNOMED-CT OPEN WOUND active 637225659 SNOMED-CT CROHNS active 05090499 SNOMED-CT FIBROMYALGIA active 663749068 SNOMED- CT PANCREATITIS active 08372882 SNOMED- CT ALTERED MENTAL STATUS active 61547293 4 SNOMED-CT Allergies and Adverse Reactions Allergy Substance Reaction Severity Start Date Concern Status Code Code System NSAID CKD (SNOMED-CT: null) Active 53492323 SNOMED-CT CHANTIX SEIZURE (SNOMED-CT: null) Active 679504 RxNorm VARENICLINE SEIZURE (SNOMED-CT: null) Active 792664 RxNorm Plan of Treatment LAB DRAW 15MIN [...] Code Sys tem Acute renal failure syndrome 06/03/2023 21540690 SNOMED-CT Personal Care Team Section Performer Name Performer Role Active Date Inactive Da te
--- OUTSIDE RECORDS SUMMARY | 2024-03-17 12:14 | XMS_ITS ---
Author Organization Unknown Address [address] [place], [place] [phone] Phone Care Team Providers Care Insurance Risk Surveyor Name Role Phone CARMELLACHILOMARGARET Parker Attending Unavailable EMILIE SWETHA Primary Unavailable Results COMPREHENSIVE METABOLIC AGNES [place] (CMP) - Collect Date/Time: 08/11/2023 12:15 [facility] ID: [id number] 8 [place], [place], [address] LOINC: 63966-9 Test Value Unit Reference Range Code Code System Flag GLUCOSE 102 mg/dL L=70 H=116 2345-7 LOINC BUN 29 mg/dL L=6 H=25 3094-0 LOINC H CREATININE 1.81 mg/dL L=0.51 H=0.95 2160-0 LOINC H SODIUM SERUM 141 mmol/L L=136 H=145 2951-2 LOINC POTASSIUM SERUM 4.2 mmol/L L=3.4 H=5.2 2823-3 LOINC CHLORIDE SERUM 101 mmol/L L=96 H=110 2075-0 LOINC CARBON DIOXIDE (CO2) 30 mmol/L L=22 H=34 2028-9 LOINC ANION GAP 10.0 mmol/L 36191-2 LOINC CALCIUM SERUM 9.3 mg/dL L=8.2 H=10.2 54489-9 LOINC BILIRUBIN TOTAL 0.3 mg/dL L=0.0 H=1.3 1975-2 LOINC ALK. PHOS. 127 U/L L=46 H=116 6768-6 LOINC H SGOT (AST) 32 U/L L=15 H=37 1920-8 LOINC SGPT (ALT) 45 U/L L=12 H=78 1742-6 LOINC TOTAL PROTEIN 7.2 gm/dL L=6.0 H=8.0 2885-2 [facility] ALBUMIN 3.6 gm/dL L=3.4 H=5.0 1751-7 [facility] AGE 67 years eGFR (non-Afr.Amer.) 28 mL/min 95869-0 [facility] eGFR (Afr-Thai) 34 mL/min 70550-3 [facility] Social History Type Status Start Date End Date Code Code Syst em Smoking History Current every day smoker [id number] SNOMED CT Sex Female Medications Medication Start Date End Date Route Frequency Dose Code Code System Medication Instructions Home Meds Cyclobenzaprine 10MG Oral Tablet 03/04/2017 09/21/2023 ORAL THREE TIMES A DAY 10 MILLIGRAMS 521221 RxNorm TAKE 10 MILLIGRAMS ORAL THREE TIMES A DAY Cymbalta 60MG Oral Capsule, Delayed Release 03/04/2017 09/21/2023 ORAL DAILY 60 MILLIGRAMS 266560 RxNorm TAKE 60 MILLIGRAMS ORAL DAILY Magnesium 500 MG Oral Tablet 03/04/2017 Unknown ORAL DAILY 500 MILLIGRAMS 752332 RxNorm TAKE 500 MILLIGRAMS ORAL DAILY Cyanocobalamin 1000MCG/1ML Injection Solution 03/21/2018 Unknown INTRA MUSCU LAR MONTHL Y 1 MILLILITERS 877118 RxNorm INJECT 1 MILLILITERS INTRAMUSCUL AR MONTHLY Estradiol 0.5MG Oral Tablet 03/21/2018 09/21/2023 ORAL DAILY 0.5 MILLIGRAMS 247245 RxNorm TAKE 0.5 MILLIGRAMS ORAL DAILY Metoprolol Succinate 25MG Oral Tablet, Extended Release 03/21/2018 Unknown ORAL DAILY 1 TABLET 130645 RxNorm LISA E 1 TABLET ORAL DAILY Sodium Bicarbonate 650MG Oral Tablet 03/21/2018 09/21/2023 ORAL THREE TIMES A DAY 1950 MILLIGRAMS 655935 RxNorm TAKE 1950 MILLIGRAMS ORAL THREE TIMES A DAY Potassium Chloride 20MEQ Oral Tablet, Extended Release 06/05/2018 09/21/2023 ORAL TWICE A DAY 20 MEQ 5850172 RxNorm TAKE 20 MEQ ORAL TWICE A DAY Magnesium 500 MG Oral Tablet 09/12/2018 09/21/2023 ORAL DAILY 1000 MG 212424 RxNorm TAKE 1 000 MG ORAL DAILY Vitamin D2 2000 IU Oral Tablet 09/12/2018 09/21/2023 ORAL WEEKLY 1 TABLET RxNorm TA KE 1 TABLET ORAL WEEKLY Acetaminophen 325MG Oral Tablet 09/25/2023 Unknown ORAL EVERY 6 HOURS 975 MILLIGRAMS 299445 RxNorm TAKE 975 MILLIGRAMS ORAL EVERY 6 HOURS Amitriptyline 10MG Oral Tablet 09/25/2023 Unknown ORAL EVERY EVENIN G 20 MILLIGRAMS 984223 RxNorm TAKE 20 MILLIGRAMS ORAL EVERY EVENING Cyclobenzaprine 10MG Oral Tablet 09/25/2023 Unknown ORAL THREE TIMES A DAY 5 MILLIGRAMS 767165 RxNorm TAKE 5 MILLIGRAMS ORAL THREE TIMES A DAY DULoxetine HCl 30MG Oral Capsule, Delayed Release 09/25/2023 Unknown ORAL DAILY 30 MILLIGRAMS 522578 RxNorm TAKE 30 MILLIGRAMS ORAL DAILY Estradiol 0.5MG Oral Tablet 09/25/2023 Unknown ORAL DAILY 0.5 TABLET 482813 RxNorm TAKE 0 .5 TABLET ORAL DAILY Fluticasone Propionate 0.05MG/1Actuatio n Nasal [place] 09/25/2023 Unknown NASAL TWICE A DAY 1 unit(s) 3520598 RxNorm SPRAY 1 EACH NASAL TWICE A DAY Folic Acid 1MG Oral Tablet 09/25/2023 Unknown ORAL DAILY 1 MILLIGRAMS 007953 RxNorm TAKE 1 MILLIGRAMS ORAL DAILY Loperamide 2 MG Oral Tablet 09/25/2023 Unknown ORAL NEEDED DAILY RxNorm TAKE 1-2 CAPSULE ORAL NEEDED DAILY Nicotine 21MG/24HR Transdermal Patch, Extended Release 09/25/2023 Unknown TRANS DERMA L DAILY 1 unit(s) 679960 RxNorm APPLY 1 EACH TRANSDERMAL DAILY Nicotine 4 MG Oromucosal Gum 09/25/2023 Unknown OROMU COSAL 4 MG 567316 RxNorm 4 MG OROMUCOSAL Ondansetron HCl 4MG Oral Tablet 09/25/2023 Unknown ORAL NEEDED DAILY 4 MILLIGRAMS 142648 RxNorm TAKE 4 MILLIGRAMS ORAL NEEDED DAILY Potassium Chloride 10MEQ Oral Capsule, Extended Release 09/25/2023 Unknown ORAL DAILY 20 MEQ 313922 RxNorm TAKE 20 MEQ ORAL DAILY Sodium Bicarbonate 650MG Oral Tablet 09/25/2023 Unknown ORAL 650 MILLIGRAMS 012786 RxNorm TAKE 650 MILLIGRAMS ORAL Vitamin D3 25MCG Oral Capsule, Liquid Filled 09/25/2023 Unknown ORAL DAILY 25 MCG RxNorm TAKE 25 MCG ORAL DAILY busPIRone 10MG Oral Tablet 09/25/2023 Unknown ORAL TWICE A DAY 10 MILLIGRAMS 361944 RxNorm TAKE 10 MILLIGRAMS ORAL TWICE A [...] Code System ACUTE INJURY OF KIDNEY active 6674092 6764640977 SNOMED-CT DEHYDRATION active 63724843 SNOMED-C T NAUSEA WITH VOMITING active 58808156 SNOMED-CT CROHN'S DISEASE W/ COMPLICATION active 9981156480113060 SNOMED-CT NICOTINE DEPENDENCE active 78128332 SNOMED-CT OPEN WOUND active 569029703 SNOMED-CT CROHNS active 27656692 SNOMED-CT FIBROMYALGIA active 862387058 SNOMED- CT PANCREATITIS active 30877343 SNOMED- CT ALTERED MENTAL STATUS active 03204565 4 SNOMED-CT Allergies and Adverse Reactions Allergy Substance Reaction Severity Start Date Concern Status Code Code System NSAID CKD (SNOMED-CT: null) Active 14784311 SNOMED-CT CHANTIX SEIZURE (SNOMED-CT: null) Active 227327 RxNorm VARENICLINE SEIZURE (SNOMED-CT: null) Active 167786 RxNorm Plan of Treatment LAB DRAW 15MIN [...] Diagnosis Start Date Code Code Sys tem Chronic kidney disease stage 3B 08/11/2023 385666643 SNOMED-CT Personal Care Team Section Performer Name Performer Role Active Date Inactive Da te
--- OUTSIDE RECORDS SUMMARY | 2024-03-17 12:14 | XMS_ITS ---
Author Organization Unknown Address [address] [place] [phone] Phone Care Team Providers Care Pressroom Worker Name Role Phone HAZEL Parker Attending Unavailable MAYCO Urias Primary Unavailable Results COMPREHENSIVE METABOLIC AGNES [place] (CMP) - Collect Date/Time: 05/20/2023 10:37 [facility] ID: [id number] [address] [place], [place], [address] LOINC: 32285-5 Test Value Unit Reference Range Code Code System Flag GLUCOSE 84 mg/dL L=70 H=116 2345-7 LOINC BUN 46 mg/dL L=6 H=25 3094-0 LOINC H CREATININE 1.96 mg/dL L=0.51 H=0.95 2160-0 LOINC H SODIUM SERUM 138 mmol/L L=136 H=145 2951-2 LOINC POTASSIUM SERUM 4.5 mmol/L L=3.4 H=5.2 2823-3 LOINC CHLORIDE SERUM 99 mmol/L L=96 H=110 2075-0 LOINC CARBON DIOXIDE (CO2) 33 mmol/L L=22 H=34 2028-9 LOINC ANION GAP 5.9 mmol/L 21802-9 LOINC CALCIUM SERUM 8.4 mg/dL L=8.2 H=10.2 61626-9 LOINC BILIRUBIN TOTAL 0.3 mg/dL L=0.0 H=1.3 1975-2 LOINC ALK. PHOS. 130 U/L L=46 H=116 6768-6 LOINC H SGOT (AST) 40 U/L L=15 H=37 1920-8 LOINC H SGPT (ALT) 41 U/L L=12 H=78 1742-6 LOINC TOTAL PROTEIN 7.4 gm/dL L=6.0 H=8.0 2885-2 [facility] ALBUMIN 3.5 gm/dL L=3.4 H=5.0 1751-7 [facility] AGE 67 years eGFR (non-Afr.Amer.) 26 mL/min 99489-6 [facility] eGFR (Afr-Argentine) 31 mL/min 25780-1 [facility] Social History Type Status Start Date End Date Code Code Syst em Smoking History Current every day smoker 095103138 SNOMED CT Sex Female Medications Medication Start Date End Date Route Frequency Dose Code Code System Medication Instructions Home Meds Cyclobenzaprine 10MG Oral Tablet 03/04/2017 09/21/2023 ORAL THREE TIMES A DAY 10 MILLIGRAMS 826917 RxNorm TAKE 10 MILLIGRAMS ORAL THREE TIMES A DAY Cymbalta 60MG Oral Capsule, Delayed Release 03/04/2017 09/21/2023 ORAL DAILY 60 MILLIGRAMS 008832 RxNorm TAKE 60 MILLIGRAMS ORAL DAILY Magnesium 500 MG Oral Tablet 03/04/2017 Unknown ORAL DAILY 500 MILLIGRAMS 365137 RxNorm TAKE 500 MILLIGRAMS ORAL DAILY Cyanocobalamin 1000MCG/1ML Injection Solution 03/21/2018 Unknown INTRA MUSCU LAR MONTHL Y 1 MILLILITERS 499168 RxNorm INJECT 1 MILLILITERS INTRAMUSCUL AR MONTHLY Estradiol 0.5MG Oral Tablet 03/21/2018 09/21/2023 ORAL DAILY 0.5 MILLIGRAMS 472560 RxNorm TAKE 0.5 MILLIGRAMS ORAL DAILY Metoprolol Succinate 25MG Oral Tablet, Extended Release 03/21/2018 Unknown ORAL DAILY 1 TABLET 262079 RxNorm LISA E 1 TABLET ORAL DAILY Sodium Bicarbonate 650MG Oral Tablet 03/21/2018 09/21/2023 ORAL THREE TIMES A DAY 1950 MILLIGRAMS 242392 RxNorm TAKE 1950 MILLIGRAMS ORAL THREE TIMES A DAY Potassium Chloride 20MEQ Oral Tablet, Extended Release 06/05/2018 09/21/2023 ORAL TWICE A DAY 20 MEQ 1372439 RxNorm TAKE 20 MEQ ORAL TWICE A DAY Magnesium 500 MG Oral Tablet 09/12/2018 09/21/2023 ORAL DAILY 1000 MG 045773 RxNorm TAKE 1 000 MG ORAL DAILY Vitamin D2 2000 IU Oral Tablet 09/12/2018 09/21/2023 ORAL WEEKLY 1 TABLET RxNorm TA KE 1 TABLET ORAL WEEKLY Acetaminophen 325MG Oral Tablet 09/25/2023 Unknown ORAL EVERY 6 HOURS 975 MILLIGRAMS 904468 RxNorm TAKE 975 MILLIGRAMS ORAL EVERY 6 HOURS Amitriptyline 10MG Oral Tablet 09/25/2023 Unknown ORAL EVERY EVENIN G 20 MILLIGRAMS 290515 RxNorm TAKE 20 MILLIGRAMS ORAL EVERY EVENING Cyclobenzaprine 10MG Oral Tablet 09/25/2023 Unknown ORAL THREE TIMES A DAY 5 MILLIGRAMS 408533 RxNorm TAKE 5 MILLIGRAMS ORAL THREE TIMES A DAY DULoxetine HCl 30MG Oral Capsule, Delayed Release 09/25/2023 Unknown ORAL DAILY 30 MILLIGRAMS 128313 RxNorm TAKE 30 MILLIGRAMS ORAL DAILY Estradiol 0.5MG Oral Tablet 09/25/2023 Unknown ORAL DAILY 0.5 TABLET 117571 RxNorm TAKE 0 .5 TABLET ORAL DAILY Fluticasone Propionate 0.05MG/1Actuatio n Nasal [place] 09/25/2023 Unknown NASAL TWICE A DAY 1 unit(s) 9788069 RxNorm SPRAY 1 EACH NASAL TWICE A DAY Folic Acid 1MG Oral Tablet 09/25/2023 Unknown ORAL DAILY 1 MILLIGRAMS 000105 RxNorm TAKE 1 MILLIGRAMS ORAL DAILY Loperamide 2 MG Oral Tablet 09/25/2023 Unknown ORAL NEEDED DAILY RxNorm TAKE 1-2 CAPSULE ORAL NEEDED DAILY Nicotine 21MG/24HR Transdermal Patch, Extended Release 09/25/2023 Unknown TRANS DERMA L DAILY 1 unit(s) 770989 RxNorm APPLY 1 EACH TRANSDERMAL DAILY Nicotine 4 MG Oromucosal Gum 09/25/2023 Unknown OROMU COSAL 4 MG 606857 RxNorm 4 MG OROMUCOSAL Ondansetron HCl 4MG Oral Tablet 09/25/2023 Unknown ORAL NEEDED DAILY 4 MILLIGRAMS 521376 RxNorm TAKE 4 MILLIGRAMS ORAL NEEDED DAILY Potassium Chloride 10MEQ Oral Capsule, Extended Release 09/25/2023 Unknown ORAL DAILY 20 MEQ 533763 RxNorm TAKE 20 MEQ ORAL DAILY Sodium Bicarbonate 650MG Oral Tablet 09/25/2023 Unknown ORAL 650 MILLIGRAMS 019157 RxNorm TAKE 650 MILLIGRAMS ORAL Vitamin D3 25MCG Oral Capsule, Liquid Filled 09/25/2023 Unknown ORAL DAILY 25 MCG RxNorm TAKE 25 MCG ORAL DAILY busPIRone 10MG Oral Tablet 09/25/2023 Unknown ORAL TWICE A DAY 10 MILLIGRAMS 200192 RxNorm TAKE 10 MILLIGRAMS ORAL TWICE A [...] Code System ACUTE INJURY OF KIDNEY active 8297797 [id number] SNOMED-CT DEHYDRATION active 45806820 SNOMED-C T NAUSEA WITH VOMITING active 61526242 SNOMED-CT CROHN'S DISEASE W/ COMPLICATION active 8478935601453051 SNOMED-CT NICOTINE DEPENDENCE active 83742528 SNOMED-CT OPEN WOUND active 324472334 SNOMED-CT CROHNS active 87315259 SNOMED-CT FIBROMYALGIA active 598884864 SNOMED- CT PANCREATITIS active 76688933 SNOMED- CT ALTERED MENTAL STATUS active 62792751 4 SNOMED-CT Allergies and Adverse Reactions Allergy Substance Reaction Severity Start Date Concern Status Code Code System NSAID CKD (SNOMED-CT: null) Active 31773230 SNOMED-CT CHANTIX SEIZURE (SNOMED-CT: null) Active 021226 RxNorm VARENICLINE SEIZURE (SNOMED-CT: null) Active 652378 RxNorm Plan of Treatment LAB DRAW 15MIN [...] Code Sys tem Acute renal failure syndrome 05/20/2023 91073547 SNOMED-CT Personal Care Team Section Performer Name Performer Role Active Date Inactive Da te
--- OUTSIDE RECORDS SUMMARY | 2024-03-17 12:14 | XMS_ITS ---
Author Organization Unknown Address [address] [place] [phone] Phone Care Team Providers Care Doors Prefitter Name Role Phone GEETHA HERNANDEZ Registered Nurse Unavailable NAHOMI BASS Registered Nurse Unavailable ROEL HARRIS Registered Nurse Unavailable Unavailable Xwatchlist Unavailable DEVAUGHN Baeza Attending Unavailable OZZIE SINHA Unavailable EMILIE SWETHA Primary Unavailable UNLISTED PROVIDER - REQUESTED Xhandoff Un available Results COMPREHENSIVE METABOLIC PANE L (CMP) - Collect Date/Time: 09/25/2023 06:56 [facility] ID: [id number] [address] [place] [address], [id number] LOINC: 62505-3 Test Value Unit Reference Range Code Code System Flag GLUCOSE 110 mg/dL L=70 H=116 BUN 21 mg/dL L=6 H=25 CREATININE 1.10 mg/dL L=0.51 H=0.95 H SODIUM SERUM 134 mmol/L L=136 H=145 L POTASSIUM SERUM 4.2 mmol/L L=3.4 H=5.2 CHLORIDE SERUM 108 mmol/L L=96 H=110 CARBON DIOXIDE (CO2) 16 mmol/L L=22 H=34 L ANION GAP 10.0 mmol/L CALCIUM SERUM 9.0 mg/dL L=8.2 H=10.2 BILIRUBIN TOTAL 0.3 mg/dL L=0.0 H=1.3 ALK. PHOS. 112 U/L L=46 H=116 SGOT (AST) 22 U/L L=15 H=37 SGPT (ALT) 31 U/L L=12 H=78 TOTAL PROTEIN 6.3 gm/dL L=6.0 H=8.0 ALBUMIN 2.1 gm/dL L=3.4 H=5.0 L AGE 67 years eGFR (non-Afr.Amer.) 50 mL/min eGFR (Afr-Guinean) 60 mL/min CORRECTED CBC W/ DIFFERENTIAL* - Colle ct Date/Time: 09/25/2023 06:56 [facility] ID: [id number] [address] [place], [place], [address] LOINC: 24059-6 Test Value Unit Reference Range Code Code System Flag WBC 5.85 th/cmm L=5.00 H=10.00 6690-2 LOINC NEUT % 80.2 % L=40.0 H=80.0 H LYMPH % 7.9 % L=10.0 H=50.0 L MONO % 10.6 % L=2.0 H=12.0 19567-6 LOINC EOS % 1.0 % L=0.0 H=8.0 BASO % 0.0 % L=0.0 H=3.0 IG % 0.3 % L=0.0 H=1.1 2514-8 LOINC NRBC % 0.0 % L=0.0 H=0.0 33611-5 LOINC NEUT abs count 4.7 th/cmm L=1.6 H=8.4 751-8 LOINC LYMPH abs count 0.5 th/cmm L=1.5 H=4.0 731-0 LOINC L MONO abs count 0.6 th/cmm L=0.2 H=1.0 742-7 LOINC EOS abs count 0.1 th/cmm L=0.0 H=0.5 711-2 LOINC BASO abs count 0.0 th/cmm L=0.0 H=0.2 704-7 LOINC IG abs count 0.0 th/cmm L=0.0 H=0.1 36097-9 LOINC NRBC abs count 0.0 mil/cmm L=0.0 H=0.0 10552-1 LOINC RBC 3.26 mil/cmm L=3.90 H=5.40 789-8 LOINC L HEMOGLOBIN 11.2 gm/dL L=12.0 H=16.0 718-7 LOINC L HEMATOCRIT 36 % L=37 H=47 4544-3 LOINC L MCV 109 fL L=82 H=92 787-2 LOINC H MCH 34.4 pg L=27.0 H=31.0 785-6 LOINC H MCHC 31.5 % L=32.0 H=36.0 786-4 LOINC L RDW-SD 60.0 fL L=39.0 H=49.0 788-0 LOINC H PLATELET COUNT 171 th/cmm L=150 H=450 777-3 LOINC LIPASE* NEW - Collect Date/T lexie: 09/25/2023 06:56 [facility] ID: [id number] [address] [place] [address], [id number] LOINC: 3040-3 Test Value Unit Reference Range Code Code System Flag LIPASE. 546 U/L L=16 H=77 HH LIPASE* NEW - Collect Date/T lexie: 09/24/2023 07:15 [facility] ID: [id number] - [id number] [address] [place] [address], [id number] LOINC: 3040-3 Test Value Unit Reference Range Code Code System Flag LIPASE. 113 U/L L=16 H=77 HH BASIC METABOLIC PANEL (BMP) - Collect Date/Time: 09/24/2023 07:15 [facility] ID: [id number] - [id number] [address] [place] [address], [address] LOINC: 79529-7 Test Value Unit Reference Range Code Code System Flag GLUCOSE 94 mg/dL L=70 H=116 2345-7 LOINC BUN 14 mg/dL L=6 H=25 3094-0 LOINC CREATININE 1.10 mg/dL L=0.51 H=0.95 2160-0 LOINC H SODIUM SERUM 139 mmol/L L=136 H=145 2951-2 LOINC POTASSIUM SERUM 3.0 mmol/L L=3.4 H=5.2 2823-3 LOINC L CHLORIDE SERUM 109 mmol/L L=96 H=110 2075-0 LOINC CARBON DIOXIDE (CO2) 20 mmol/L L=22 H=34 8-9 LOINC L ANION GAP 10.1 mmol/L 21429-7 LOINC CALCIUM SERUM 8.5 mg/dL L=8.2 H=10.2 70674-3 LOINC AGE 67 years eGFR (non-Afr.Amer.) 50 mL/min 08723-3 LOINC eGFR (Afr-[place]inean) 60 mL/min 79563-5 LOINC CBC W/ DIFFERENTIAL* - Colle ct Date/Time: 09/24/2023 07:15 [facility] ID: [id number] [address] [place] [address], [facility] LOINC: 62819-1 Test Value Unit Reference Range Code Code System Flag WBC 6.75 th/cmm L=5.00 H=10.00 6690-2 LOINC NEUT % 81.6 % L=40.0 H=80.0 H LYMPH % 7.3 % L=10.0 H=50.0 L MONO % 10.5 % L=2.0 H=12.0 21492-1 LOINC EOS % 0.3 % L=0.0 H=8.0 BASO % 0.0 % L=0.0 H=3.0 IG % 0.3 % L=0.0 H=1.1 2514-8 LOINC NRBC % 0.0 % L=0.0 H=0.0 74537-2 LOINC NEUT abs count 5.5 th/cmm L=1.6 H=8.4 751-8 LOINC LYMPH abs count 0.5 th/cmm L=1.5 H=4.0 731-0 LOINC L MONO abs count 0.7 th/cmm L=0.2 H=1.0 742-7 LOINC EOS abs count 0.0 th/cmm L=0.0 H=0.5 711-2 LOINC BASO abs count 0.0 th/cmm L=0.0 H=0.2 704-7 LOINC IG abs count 0.0 th/cmm L=0.0 H=0.1 78648-5 LOINC NRBC abs count 0.0 mil/cmm L=0.0 H=0.0 84656-1 LOINC RBC 3.34 mil/cmm L=3.90 H=5.40 789-8 LOINC L HEMOGLOBIN 11.6 gm/dL L=12.0 H=16.0 718-7 LOINC L HEMATOCRIT 33 % L=37 H=47 4544-3 LOINC L MCV 99 fL L=82 H=92 787-2 LOINC H MCH 34.7 pg L=27.0 H=31.0 785-6 LOINC H MCHC 34.9 % L=32.0 H=36.0 786-4 LOINC RDW-SD 52.0 fL L=39.0 H=49.0 788-0 LOINC H PLATELET COUNT 165 th/cmm L=150 H=450 777-3 LOINC LIPASE* NEW - Collect Date/T lexie: 09/23/2023 06:40 [facility] ID: [id number] [address] [place] [address], [id number] LOINC: 3040-3 Test Value Unit Reference Range Code Code System Flag LIPASE. 132 U/L L=16 H=77 HH CBC W/ DIFFERENTIAL* - [facility] ct Date/Time: 09/23/2023 06:40 [facility] ID: [id number] [address] [place] [address], [address] LOINC: 71138-4 Test Value Unit Reference Range Code Code System Flag WBC 14.00 th/cmm L=5.00 H=10.00 6690-2 LOINC H NEUT % 88.5 % L=40.0 H=80.0 H LYMPH % 3.1 % L=10.0 H=50.0 L MONO % 7.7 % L=2.0 H=12.0 69117-9 LOINC EOS % 0.0 % L=0.0 H=8.0 BASO % 0.1 % L=0.0 H=3.0 IG % 0.6 % L=0.0 H=1.1 2514-8 LOINC NRBC % 0.0 % L=0.0 H=0.0 74074-4 LOINC NEUT abs count 12.4 th/cmm L=1.6 H=8.4 751-8 LOINC H LYMPH abs count 0.4 th/cmm L=1.5 H=4.0 731-0 LOINC L MONO abs count 1.1 th/cmm L=0.2 H=1.0 742-7 LOINC H EOS abs count 0.0 th/cmm L=0.0 H=0.5 711-2 LOINC BASO abs count 0.0 th/cmm L=0.0 H=0.2 704-7 LOINC IG abs count 0.1 th/cmm L=0.0 H=0.1 84214-5 LOINC NRBC abs count 0.0 mil/cmm L=0.0 H=0.0 91331-5 LOINC RBC 3.90 mil/cmm L=3.90 H=5.40 789-8 LOINC HEMOGLOBIN 13.2 gm/dL L=12.0 H=16.0 718-7 LOINC HEMATOCRIT 38 % L=37 H=47 4544-3 LOINC MCV 98 fL L=82 H=92 787-2 LOINC H MCH 33.8 pg L=27.0 H=31.0 785-6 LOINC H MCHC 34.6 % L=32.0 H=36.0 786-4 LOINC RDW-SD 49.4 fL L=39.0 H=49.0 788-0 LOINC H PLATELET COUNT 176 th/cmm L=150 H=450 777-3 LOINC Vaccuol neutr 1+ COMPREHENSIVE METABOLIC PANE L (CMP) - Collect Date/Time: 09/23/2023 06:40 [facility] ID: [id number] - [id number] [address] [place], [place], [address] LOINC: 56421-0 Test Value Unit Reference Range Code Code System Flag GLUCOSE 101 mg/dL L=70 H=116 2345-7 LOINC BUN 20 mg/dL L=6 H=25 3094-0 LOINC CREATININE 1.26 mg/dL L=0.51 H=0.95 2160-0 LOINC H SODIUM SERUM 138 mmol/L L=136 H=145 2951-2 LOINC POTASSIUM SERUM 3.0 mmol/L L=3.4 H=5.2 2823-3 LOINC L CHLORIDE SERUM 104 mmol/L L=96 H=110 2075-0 LOINC CARBON DIOXIDE (CO2) 22 mmol/L L=22 H=34 2028-9 LOINC ANION GAP 12.4 mmol/L 32210-5 LOINC CALCIUM SERUM 8.4 mg/dL L=8.2 H=10.2 04009-7 LOINC BILIRUBIN TOTAL 1.0 mg/dL L=0.0 H=1.3 1975-2 LOINC ALK. PHOS. 138 U/L L=46 H=116 6768-6 LOINC H SGOT (AST) 33 U/L L=15 H=37 1920-8 LOINC SGPT (ALT) 57 U/L L=12 H=78 1742-6 LOINC TOTAL PROTEIN 5.8 gm/dL L=6.0 H=8.0 2885-2 LOINC L ALBUMIN 2.5 gm/dL L=3.4 H=5.0 1751-7 LOINC L AGE 67 years eGFR (non-Afr.Amer.) 42 mL/min 85544-5 LOINC eGFR (Afr-[place]inean) 51 mL/min 08414-9 [facility] - Collect D ate/Time: 09/22/2023 08:39 [facility] ID: [id number] [address] [place] [address], [address] LOINC: 92851-4 Test Value Unit Reference Range Code Code System Flag MAGNESIUM 1.9 mg/dL L=1.8 H=2.4 58667-9 [facility] COMPREHENSIVE METABOLIC PANE L (CMP) - Collect Date/Time: 09/22/2023 08:39 [facility] ID: [id number] - [id number] [address] [place] [address], [address] LOINC: 07032-1 Test Value Unit Reference Range Code Code System Flag GLUCOSE 79 mg/dL L=70 H=116 2345-7 LOINC BUN 31 mg/dL L=6 H=25 3094-0 LOINC H CREATININE 1.37 mg/dL L=0.51 H=0.95 2160-0 LOINC H SODIUM SERUM 135 mmol/L L=136 H=145 2951-2 LOINC L POTASSIUM SERUM 3.6 mmol/L L=3.4 H=5.2 2823-3 LOINC CHLORIDE SERUM 106 mmol/L L=96 H=110 2075-0 LOINC CARBON DIOXIDE (CO2) 15 mmol/L L=22 H=34 2028-9 LOINC L ANION GAP 13.9 mmol/L 85001-5 LOINC CALCIUM SERUM 8.9 mg/dL L=8.2 H=10.2 90064-1 LOINC BILIRUBIN TOTAL 1.1 mg/dL L=0.0 H=1.3 1975-2 LOINC ALK. PHOS. 139 U/L L=46 H=116 6768-6 LOINC H SGOT (AST) 52 U/L L=15 H=37 1920-8 LOINC H SGPT (ALT) 67 U/L L=12 H=78 1742-6 LOINC TOTAL PROTEIN 6.6 gm/dL L=6.0 H=8.0 2885-2 LOINC ALBUMIN 2.7 gm/dL L=3.4 H=5.0 1751-7 LOINC L AGE 67 years eGFR (non-Afr.Amer.) 39 mL/min 23839-6 LOINC eGFR (Afr-[place]inean) 47 mL/min 71795-0 LOINC CBC W/ DIFFERENTIAL* - Colle ct Date/Time: 09/22/2023 08:39 [facility] ID: [id number] [address] [place], [place], [id number] LOINC: 90888-9 Test Value Unit Reference Range Code Code System Flag WBC 19.15 th/cmm L=5.00 H=10.00 6690-2 LOINC H NEUT % 91.6 % L=40.0 H=80.0 H LYMPH % 2.7 % L=10.0 H=50.0 L MONO % 5.2 % L=2.0 H=12.0 65493-7 LOINC EOS % 0.0 % L=0.0 H=8.0 BASO % 0.1 % L=0.0 H=3.0 IG % 0.4 % L=0.0 H=1.1 2514-8 LOINC NRBC % 0.0 % L=0.0 H=0.0 34036-5 LOINC NEUT abs count 17.6 th/cmm L=1.6 H=8.4 751-8 LOINC H LYMPH abs count 0.5 th/cmm L=1.5 H=4.0 731-0 LOINC L MONO abs count 1.0 th/cmm L=0.2 H=1.0 742-7 LOINC EOS abs count 0.0 th/cmm L=0.0 H=0.5 711-2 LOINC BASO abs count 0.0 th/cmm L=0.0 H=0.2 704-7 LOINC IG abs count 0.1 th/cmm L=0.0 H=0.1 95606-0 LOINC NRBC abs count 0.0 mil/cmm L=0.0 H=0.0 96126-1 LOINC RBC 4.07 mil/cmm L=3.90 H=5.40 789-8 LOINC HEMOGLOBIN 14.0 gm/dL L=12.0 H=16.0 718-7 LOINC HEMATOCRIT 40 % L=37 H=47 4544-3 LOINC MCV 99 fL L=82 H=92 787-2 LOINC H MCH 34.4 pg L=27.0 H=31.0 785-6 LOINC H MCHC 34.7 % L=32.0 H=36.0 786-4 LOINC RDW-SD 50.3 fL L=39.0 H=49.0 788-0 LOINC H PLATELET COUNT DNR L=150 H=450 777-3 LOINC Vaccuol neutr 2+ Plt clumps Ct invalid Platelet est. Adequate CORRECTED BASIC METABOLIC PANEL (BMP) - Collect Date/Time: 09/21/2023 14:00 [facility] ID: [id number] - [id number] [address] [place], [place], [address] LOINC: 34175-5 Test Value Unit Reference Range Code Code System Flag GLUCOSE 112 mg/dL L=70 H=116 2345-7 LOINC BUN 47 mg/dL L=6 H=25 3094-0 LOINC H CREATININE 1.81 mg/dL L=0.51 H=0.95 2160-0 LOINC H SODIUM SERUM 139 mmol/L L=136 H=145 2951-2 LOINC POTASSIUM SERUM 4.4 mmol/L L=3.4 H=5.2 2823-3 LOINC CHLORIDE SERUM 109 mmol/L L=96 H=110 2075-0 LOINC CARBON DIOXIDE (CO2) 16 mmol/L L=22 H=34 2028-9 LOINC L ANION GAP 14.4 mmol/L 28015-6 LOINC CALCIUM SERUM 9.0 mg/dL L=8.2 H=10.2 20045-1 LOINC AGE 67 years eGFR (non-Afr.Amer.) 28 mL/min 20473-4 LOINC eGFR (Afr-[place]inean) 34 mL/min 42375-2 LOINC ORDER VENOUS BLOOD GAS* - Co llect Date/Time: 09/21/2023 10:40 [facility] ID: [id number] - [id number] [address] [place], [place], [id number] LOINC: Test Value Unit Reference Range Code Code System Flag Specimen type: VENOUS pH (venous) 7.21 L=7.38 H=7.46 2746-6 LOINC L PCO2 (venous) 30.4 mm Hg L=41.0 H=51.0 2703-7 LOINC L PO2 (venous) 7 mm Hg L=30 H=50 2705-2 LOINC L HCO3 -16 mmol/L L=22 H=26 1960-4 LOINC L TCO2 (venous) 13 mmol/L L=22 H=28 3533-7 LOINC L BASE EXCESS (venous) -16 mmol/L L=-2 H=3 3097-3 LOINC L Assist vent. Resp. Rate /min. Temp. AMMONIA* - Collect Date/Time : 09/21/2023 10:35 [facility] ID: [id number] - [id number] [address] [place], [place], [address] LOINC: 42485-2 Test Value Unit Reference Range Code Code System Flag AMMONIA < 10 umol/L L=19 H=54 44122-4 LOINC L LIPASE* NEW - Collect Date/T lexie: 09/21/2023 10:35 [facility] ID: [id number] - [id number] [address] [place], [place], [id number] LOINC: 3040-3 Test Value Unit Reference Range Code Code System Flag LIPASE. 2449 U/L L=16 H=77 HH COMPREHENSIVE METABOLIC PANE L (CMP) - Collect Date/Time: 09/21/2023 10:35 [facility] ID: [id number] - [id number] [address] [place] [address], [id number] LOINC: 23803-8 Test Value Unit Reference Range Code Code System Flag GLUCOSE 138 mg/dL L=70 H=116 2345-7 LOINC H BUN 46 mg/dL L=6 H=25 3094-0 LOINC H CREATININE 1.91 mg/dL L=0.51 H=0.95 2160-0 LOINC H SODIUM SERUM 138 mmol/L L=136 H=145 2951-2 LOINC POTASSIUM SERUM 4.6 mmol/L L=3.4 H=5.2 2823-3 LOINC CHLORIDE SERUM 110 mmol/L L=96 H=110 2075-0 LOINC CARBON DIOXIDE (CO2) 15 mmol/L L=22 H=34 2028-9 LOINC L ANION GAP 13.5 mmol/L 92984-2 LOINC CALCIUM SERUM 8.4 mg/dL L=8.2 H=10.2 41471-3 LOINC BILIRUBIN TOTAL 1.4 mg/dL L=0.0 H=1.3 1975-2 LOINC H ALK. PHOS. 133 U/L L=46 H=116 6768-6 LOINC H SGOT (AST) 52 U/L L=15 H=37 1920-8 LOINC H SGPT (ALT) 70 U/L L=12 H=78 1742-6 LOINC TOTAL PROTEIN 6.2 gm/dL L=6.0 H=8.0 2885-2 LOINC ALBUMIN 2.5 gm/dL L=3.4 H=5.0 1751-7 LOINC L AGE 67 years eGFR (non-Afr.Amer.) 26 mL/min 95063-7 LOINC eGFR (Afr-[place]inean) 32 mL/min 02453-9 LOINC CORRECTED LACTIC ACID - Collect Date/T lexie: 09/21/2023 10:35 [facility] ID: [id number] - [id number] [address] [place], [place], [address] LOINC: Test Value Unit Reference Range Code Code System Flag LACTIC ACID 4.3 mmol/L L=0.7 H=2.1 49790-7 LOINC DRUG SCN 13 PANEL (MEDTOX)* - Collect Date/Time: 09/21/2023 10:01 [facility] ID: [id number] - [id number] [address] [place] [address], [id number] LOINC: 24699-5 Test Value Unit Reference Range Code Code System Flag CANNABINOIDS NEGATIVE Cutoff = 50 ng/mL 05149-7 LOINC PHENCYCLIDINE NEGATIVE Cutoff = 25 ng/mL 22491-3 LOINC COCAINE POSITIVE Cutoff = 150 ng/mL 43585-2 LOINC A METHAMPHETAMINES NEGATIVE Cutoff = 50 0 ng/mL 33513-7 LOINC OPIATES NEGATIVE Cutoff = 100 ng/mL 80944-9 LOINC AMPHETAMINES NEGATIVE Cutoff = 500 ng/mL 80641-9 LOINC BENZODIAZEPINES NEGATIVE Cutoff = 150 ng/mL 80244-6 LOINC TRICYCLIC ANTIDEP NEGATIVE Cutoff = 3 00 ng/mL 3533-7 LOINC METHADONE NEGATIVE Cutoff = 200 ng/mL 21921-2 LOINC BARBITURATES NEGATIVE Cutoff = 200 ng/mL 77153-1 LOINC OXYCODONE POSITIVE Cutoff = 100 ng/mL 69549-2 LOINC A BUPRENORPHINE NEGATIVE Cutoff = 10 mg/mL 3414-0 LOINC URINALYSIS WITH REFLEX CULT IF POSITIVE* - Collect Date/Time: 09/21/2023 10:01 [facility] ID: [id number] - [id number] [address] [place] [address], [address] LOINC: 91432-8 Test Value Unit Reference Range Code Code System Flag COLLECTION MODE: BARR 94860-4 LOINC Color YELLOW yellow 5778-6 LOINC Appearance CLEAR clear 5767-9 LOINC Glucose urine NEGATIVE negative mg/dl 38964-1 LOINC Bilirubin NEGATIVE negative 5770-3 LOINC Ketones NEGATIVE negative mg/dl 2514-8 LOINC Spec gravity 1.015 1.003 - 1.030 5811-5 LOINC pH urine 7.0 5.0 - 7.0 2756-5 LOINC Protein 100 negative mg/dl 09842-4 LOINC A Urobilinogen 0.2 <or= 1 EU/dl 32043-7 LOINC Nitrite. NEGATIVE negative 5802-4 LOINC Blood TRACE-IN negative 5794-3 LOINC A Leukocytes. NEGATIVE negative MICROSCOPIC INDICATED WBCs. 0-5 0-5 / hpf 41757-8 LOINC RBCs 0-5 0-5 / hpf 95908-0 LOINC Epith cells 5-10 0-5 / hpf 16626-7 LOINC Cell types squam+trans Crystals none none Bacteria moderate none Mucus present none 8247-9 LOINC Casts none none /lpf 88770-4 LOINC Other CLUE CELLS PRESENT TROPONIN HIGH SENSITIVITY* - Collect Date/Time: 09/21/2023 09:50 [facility] ID: [id number] - [id number] [address] [place] [address], [address] LOINC: 99947-9 Test Value Unit Reference Range Code Code System Flag TROPONIN HS 54.1 pg/mL L=0.0 H=60.4 Specimen seq. ADM. ORDER VENOUS BLOOD GAS* - Co llect Date/Time: 09/21/2023 09:11 [facility] ID: [id number] - [id number] [address] [place] [address], [id number] LOINC: Test Value Unit Reference Range Code Code System Flag Specimen type: VENOUS pH (venous) 7.11 L=7.38 H=7.46 2746-6 LOINC LL PCO2 (venous) 43.8 mm Hg L=41.0 H=51.0 2703-7 LOINC PO2 (venous) 32 mm Hg L=30 H=50 2705-2 LOINC HCO3 14 mmol/L L=22 H=26 1960-4 LOINC L TCO2 (venous) 15 mmol/L L=22 H=28 3533-7 LOINC L BASE EXCESS (venous) -16 mmol/L L=-2 H=3 3097-3 LOINC L Assist vent. Resp. Rate /min. Temp. NOVA GLUCOSE FINGER HEEL CAP ILLARY - Collect Date/Time: 09/21/2023 09:02 [facility] ID: [id number] - [id number] [address] [place], [place], [id number] LOINC: 87666-3 Test Value Unit Reference Range Code Code System Flag GLUCOSE CAP 116 mg/dL L=70 H=116 64959-2 LOINC CBC W/ DIFFERENTIAL* - Colle ct Date/Time: 09/21/2023 09:00 [facility] ID: [id number] [address] [place] [address], [address] LOINC: 55419-4 Test Value Unit Reference Range Code Code System Flag WBC 24.68 th/cmm L=5.00 H=10.00 6690-2 LOINC HH NEUT % 89.8 % L=40.0 H=80.0 H LYMPH % 4.0 % L=10.0 H=50.0 L MONO % 5.4 % L=2.0 H=12.0 21873-3 LOINC EOS % 0.0 % L=0.0 H=8.0 BASO % 0.2 % L=0.0 H=3.0 IG % 0.6 % L=0.0 H=1.1 2514-8 LOINC NRBC % 0.0 % L=0.0 H=0.0 00143-7 LOINC NEUT abs count 22.2 th/cmm L=1.6 H=8.4 751-8 LOINC H LYMPH abs count 1.0 th/cmm L=1.5 H=4.0 731-0 LOINC L MONO abs count 1.3 th/cmm L=0.2 H=1.0 742-7 LOINC H EOS abs count 0.0 th/cmm L=0.0 H=0.5 711-2 LOINC BASO abs count 0.0 th/cmm L=0.0 H=0.2 704-7 LOINC IG abs count 0.2 th/cmm L=0.0 H=0.1 95391-1 LOINC H NRBC abs count 0.0 mil/cmm L=0.0 H=0.0 39689-5 LOINC RBC 4.88 mil/cmm L=3.90 H=5.40 789-8 LOINC HEMOGLOBIN 16.7 gm/dL L=12.0 H=16.0 718-7 LOINC H HEMATOCRIT 50 % L=37 H=47 4544-3 LOINC H MCV 103 fL L=82 H=92 787-2 LOINC H MCH 34.2 pg L=27.0 H=31.0 785-6 LOINC H MCHC 33.3 % L=32.0 H=36.0 786-4 LOINC RDW-SD 52.4 fL L=39.0 H=49.0 788-0 LOINC H PLATELET COUNT 372 th/cmm L=150 H=450 777-3 LOINC Vaccuol neutr 1+ CT ABD PELVIS W IV CONTRAST ONLY - Completed: 09/22/2023 16:46 LOINC: [facility] [place], [place] [address] RADIOLOGY PACS [employer]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 Oral contrast was not administered. COMPARISON: CT abdomen and pelvis without contrast 03/08/2023. FINDINGS: Lower chest: Bilateral trace pleural effusions. Emphysematous changes within the bilateral lower lungs. Calcified left lower lobe granuloma, stable since at least 2016. Liver: Normal size and attenuation without lesions. Bile ducts: Moderate intrahepatic and extrahepatic biliary ductal dilation. The common bile duct measures 11 mm in diameter with abrupt cut off at the ampulla at the location of equivocally hypoattenuating 0.8 cm mass. The appearance of ductal dilation is present dating back to 2014, although previous exams have been noncontrast. No calcified choledocholithiasis. Gallbladder: No calcified cholelithiasis. Normal caliber wall. An enhancing lymph node is located left posterolateral to the gallbladder body mimicking wall thickening, although has been present over multiple prior studies. Trace pericholecystic fluid. Small volume of air within the gallbladder. No intramural air. No definite fistulization with bowel. Pancreas: Normal size and attenuation. Minimal pancreatic ductal dilation, measures 4 mm at the body/tail. Scattered punctate cystic lesions are favored to represent dilated sidebranches. Spleen: Normal. Adrenals: Nodular thickening left adrenal gland comparison is similar to prior studies may represent hyperplasia or adenoma. Normal right adrenal gland. Kidneys: Multiple fluid attenuation lesions throughout the kidneys consistent with polycystic kidney disease. Right interpole hyperdense lesion without definite enhancement within compared to prior noncontrast exam. Subcentimeter lesions which are too small to characterize. Bilateral punctate renal calculi and medullary nephrocalcinosis again noted. No hydronephrosis. Urinary Bladder: Moderate to markedly distended bladder. Vasculature: No abdominal aortic aneurysm. Partially calcified atherosclerotic disease. Patent celiac and superior mesenteric origins. Patent portal vein. Lymph Nodes: Chronic borderline enlargement of left periaortic lymph nodes. Bowel: No intestinal dilation or abnormal wall thickening within limitations of lack of enteric contrast. Status post colectomy with left lower quadrant ostomy in place. Seton at the perineum at 6:00. Peritoneum and retroperitoneum: Small volume of intraperitoneal fluid adjacent to the spleen on in the paracolic gutters. Chronic bilateral perinephric stranding. Equivocal peripancreatic edema. Abdominal wall: No parastomal hernia. Reproductive organs: Status post hysterectomy with several metallic surgical clips in the pelvis. Osseous structures: No suspicious osseous lesion. IMPRESSION: 1. Moderate to severe dilation of the intrahepatic and extrahepatic bile ducts with mild dilation of the pancreatic duct (double duct sign). Equivocal masslike fullness of the ampulla. Findings are concerning for obstructive process at the ampulla of Vater. Recommend GI consultation for consideration of MRCP versus ERCP for further characterization. Particularly if the patient has a history of inflammatory bowel disease, a stricture/primary sclerosing cholangitis may be considered. 2. Trace pericholecystic fluid with small volume of air within the gallbladder. Correlate with history of instrumentation. No definite fistula to bowel is demonstrated. Trace surrounding inflammation is nonspecific in the setting of ascites. Cannot exclude acute cholecystitis. 3. Equivocal peripancreatic edema. Correlate with lipase to exclude pancreatitis. 4. Polycystic kidneys with medullary nephrocalcinosis and nonobstructive calculi. 5. Small volume ascites and trace bilateral pleural effusions. Thank you for letting us participate in the care of this patient. If you are a health care provider and have any questions regarding this report, please contact the number below. For patients who have questions please contact the health critical care unit nurse that requested your imaging first. 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 COMPARISON: CT sinuses 04/17/2022 FINDINGS: No acute intracranial hemorrhage, mass, mass effect, hydrocephalus, midline shift, or evidence of large acute infarction. Stable [id number]-[id number] right cerebellar volume loss. No significant osseous abnormality. Presumed cerumen bilaterally in the external auditory canals. The visualized portions of the paranasal sinuses are clear. The mastoid air cells are clear bilaterally. IMPRESSION: 1. No acute intracranial abnormality. 2. Stable mild to moderate right cerebellar volume loss. Thank you for letting us participate in the care of this patient. If you are a health care provider and have any questions regarding this report, please contact the number below. For patients who have questions please contact the health critical care unit nurse that requested your imaging first. 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 MRCP sequences performed as well. COMPARISON: 01/15/2016. FINDINGS: There is marked distention of the gallbladder today. Gallbladder measures about the 49 mm AP, 44 mm transverse and 88 mm superoinferiorly. A small focus of focal adenomyomatosis occurs at the lateral aspect of the gallbladder wall towards the fundus. A minimal amount of pericholecystic fluid may be present. This may relate to a small volume of ascites noted at the upper abdomen. Gallbladder wall is of normal thickness. Several millimetric calculi occur at the dependent gallbladder towards the fundus. There is a sessile polyp suspected at the anterior gallbladder wall, measuring about 7 mm in maximal dimension. The cholelithiasis and polyp or newly appreciated since prior examination of 2016. There is a moderate dilatation of the intra and extra hepatic biliary tree. This appears improved since 2016. Maximal caliber of common bile duct, at about mid edilma, estimated today at about 11 mm, compared to 13 mm previously. No discernible choledocholithiasis. There is a rather abrupt tapering of the distal common bile duct lumen, with a zone of ampullary region stenosis or stricturing estimated at roughly 8 to 9 mm in length. No discernible choledocholithiasis. This configuration is stable since 2016. The pancreas and pancreatic duct appeared unremarkable. Liver appeared free of focal pathology noted. Of normal overall size. Spleen appeared homogenous and of normal size. Numerous renal cysts occur, grossly simple. Adrenal glands unremarkable. There is some free intraperitoneal fluid seen about the spleen and to a lesser extent about the inferior margin of the liver. Minimal dependent subpleural region fluid occurs as well, seen at the posterior costophrenic angles. Bone marrow signal within the image volume unremarkable. IMPRESSION: Distention of the gallbladder, and intra and extra hepatic biliary tree. The latter is marginally improved since prior of 01/15/2016. 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 Please correlate with known information in this regard. No choledocholithiasis. Cholelithiasis noted. Small focus of focal adenomyomatosis occurs at the lateral wall of the gallbladder close to the fundus. No findings of acute cholecystitis. There may be minimal amount of pericholecystic fluid present but the gallbladder wall is normal thickness. The former more likely relates to the small volume of ascites noted at the upper abdomen. Correlation with clinical and biochemical context nonetheless suggested. There is a gallbladder polyp suspected at the anterior wall, sessile with a maximum dimension of 7 mm. Small volume ascites at the upper abdomen. Minimal pleural fluid occurs at the posterior costophrenic angles. Thank you for letting us participate in the care of this patient. If you are a health care provider and have any questions regarding this report, please contact the number below. For patients who have questions please contact the health critical care unit nurse that requested your imaging first. 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 CT abdomen pelvis 03/08/2023. FINDINGS: EKG leads are present. There are bilateral nipple shadows. Coarse appearance of the lung parenchyma with hyperexpansion suggesting underlying obstructive pulmonary disease. No new airspace opacity to suggest pneumonia. Unchanged medial left lower lobe 5 mm well-circumscribed opacity consistent with a granuloma as seen on prior CT 03/08/2023. No pulmonary vascular congestion. No peribronchial thickening or cuffing. No pneumothorax. No pleural effusions. Normal size of the cardiomediastinal silhouette and marii. Healed chronic fracture deformity posterior lateral right ninth rib. No acute osseous findings. IMPRESSION: 1. No acute cardiopulmonary process. 2. Sequela of obstructive pulmonary disease. Thank you for letting us participate in the care of this patient. If you are a health care provider and have any questions regarding this report, please contact the number below. For patients who have questions please contact the health critical care unit nurse that requested your imaging first. Social History Type Status Start Date End Date Code Code Syst em Smoking History Current every day smoker 851341435 SNOMED CT Sex Female Vital Signs Vital Sign Value Unit Webster Value Webster Unit Date/Time Recent/Initial? Code Code System Body Mass Index 19.19 kg/m2 09/21/2023 10:47 Initial 48759 -5 LOINC Systolic Blood Pressure 142 mm[Hg] 09/25/2023 07:44 Most Recent 8480- 6 LOINC Diastolic Blood Pressure 96 mm[Hg] 09/25/2023 07:44 Most Recent 8462- 4 LOINC Systolic Blood Pressure 114 mm[Hg] 09/21/2023 09:00 Initial 8480- 6 LOINC Diastolic Blood Pressure 96 mm[Hg] 09/21/2023 09:00 Initial 8462- 4 LOINC Body Surface Area 1.34 m2 09/21/2023 10:47 Initial 3140- 1 LOINC Height 149.860 0 cm 59.00 in 09/21/2023 10:47 Initial 8302- 2 LOINC O2 Saturation 100 % 2023 07:44 Most Recent 24407 -5 LOINC O2 Saturation 100 % 2023 10:47 Initial 03558 -5 LOINC Pulse 110.0 /min 09/25/2023 07:44 Most Recent 8867- 4 LOINC Pulse 129.0 /min 09/21/2023 09:00 Initial 8867- 4 LOINC Respiration 18 /min 09/25/19 07:44 Most Recent 9279- 1 LOINC Respiration 20 /min 09/21/19 09:00 Initial 9279- 1 LOINC Temperature 36.2 Mariza 97.2 F 09/25/19 07:44 Most Recent 8310- 5 LOINC Temperature 33.2 Mariza 91.8 F 07/08/20 24 09:00 Initial 8310- 5 [facility] Weight 43.09 kg 95.00 lbs 09/21/2023 10:47 Initial 10082 -7 [facility] Medications Medication Start Date End Date Route Frequency Dose Code Code System Medication Instructions Home Meds Magnesium 500 MG Oral Tablet 03/04/2017 Unknown ORAL DAILY 500 MILLIGRAMS 672153 RxNorm TAKE 500 MILLIGRAMS ORAL DAILY Cyanocobalam in 1000MCG/1ML Injection Solution 03/21/2018 Unknown INTRAMU SCULAR MONTHLY 1 MILLILITERS 650040 RxNorm INJECT 1 MILLILITERS INTRAMUSCULA R MONTHLY Metoprolol Succinate 25MG Oral Tablet, Extended Release 03/21/2018 Unknown ORAL DAILY 1 TABLET 592504 RxNorm TAKE 1 TABLET ORAL DAILY Acetaminophe n 325MG Oral Tablet 09/25/2023 Unknown ORAL EVERY 6 HOURS 975 MILLIGRAMS 396245 RxNorm TAKE 975 MILLIGRAMS ORAL EVERY 6 HOURS Amitriptylin e 10MG Oral Tablet 09/25/2023 Unknown ORAL EVERY EVENING 20 MILLIGRAMS 773389 RxNorm TAKE 20 MILLIGRAMS ORAL EVERY EVENING Cyclobenzapr ine 10MG Oral Tablet 09/25/2023 Unknown ORAL THREE TIMES A DAY 5 MILLIGRAMS 664265 RxNorm TAKE 5 MILLIGRAMS ORAL THREE TIMES A DAY DULoxetine HCl 30MG Oral Capsule, Delayed Release 09/25/2023 Unknown ORAL DAILY 30 MILLIGRAMS 406833 RxNorm TAKE 30 MILLIGRAMS ORAL DAILY Estradiol 0.5MG Oral Tablet 09/25/2023 Unknown ORAL DAILY 0.5 TABLET 777340 RxNorm TAKE 0.5 TABLET ORAL DAILY Fluticasone Propionate 0.05MG/1Actu ation Nasal [place] 09/25/2023 Unknown NASAL TWICE A DAY 1 unit(s) 3224253 RxNorm SPRAY 1 EACH NASAL TWICE A DAY Folic Acid 1MG Oral Tablet 09/25/2023 Unknown ORAL DAILY 1 MILLIGRAMS 186204 RxNorm TAKE 1 MILLIGRAMS ORAL DAILY Loperamide 2 MG Oral Tablet 09/25/2023 Unknown ORAL NEEDED DAILY RxNorm TAKE 1-2 CAPSULE ORAL NEEDED DAILY Nicotine 21MG/24HR Transdermal Patch, Extended Release 09/25/2023 Unknown TRANSDE RMAL DAILY 1 unit(s) 581069 RxNorm APPLY 1 EACH TRANSDERMAL DAILY Nicotine 4 MG Oromucosal Gum 09/25/2023 Unknown OROMUCO DESTINY 4 MG 065528 RxNorm 4 MG OROMUCOSAL Ondansetron HCl 4MG Oral Tablet 09/25/2023 Unknown ORAL NEEDED DAILY 4 MILLIGRAMS 478692 RxNorm TAKE 4 MILLIGRAMS ORAL NEEDED DAILY Potassium Chloride 10MEQ Oral Capsule, Extended Release 09/25/2023 Unknown ORAL DAILY 20 MEQ 204976 RxNorm TAKE 20 MEQ ORAL DAILY Sodium Bicarbonate 650MG Oral Tablet 09/25/2023 Unknown ORAL 650 MILLIGRAMS 285619 RxNorm TAKE 650 MILLIGRAMS ORAL Vitamin D3 25MCG Oral Capsule, Liquid Filled 09/25/2023 Unknown ORAL DAILY 25 MCG RxNorm TAKE 25 MCG ORAL DAILY busPIRone 10MG Oral Tablet 09/25/2023 Unknown ORAL TWICE A DAY 10 MILLIGRAMS 782865 RxNorm TAKE 10 MILLIGRAMS ORAL TWICE A [...] Code System ACUTE INJURY OF KIDNEY active 7808493 0120306046 SNOMED-CT DEHYDRATION active 03965224 SNOMED-C T NAUSEA WITH VOMITING active 52546373 SNOMED-CT CROHN'S DISEASE W/ COMPLICATION active 2078987026916043 SNOMED-CT NICOTINE DEPENDENCE active 26628156 SNOMED-CT OPEN WOUND active 272176471 SNOMED-CT CROHNS active 67396850 SNOMED-CT FIBROMYALGIA active 298676735 SNOMED- CT PANCREATITIS active 68225100 SNOMED- CT ALTERED MENTAL STATUS active 12999533 4 SNOMED-CT Allergies and Adverse Reactions Allergy Substance Reaction Severity Start Date Concern Status Code Code System NSAID CKD (SNOMED-CT: null) Active 95013451 SNOMED-CT CHANTIX SEIZURE (SNOMED-CT: null) Active 905099 RxNorm VARENICLINE SEIZURE (SNOMED-CT: null) Active 804158 RxNorm Plan of Treatment LAB DRAW 15MIN [...] 08/29/2021 US ABDOMEN LIMITED 1 ORGAN 07/31/2021 [facility] as she is tachycardic Will give her usual dose of metoprolol ER 25 mg daily Continue hydration for acute kidney injury, Presumed acute pancreatitis and mild hyperkalemia, follow-up BMP is pending Clear liquid diet for now Pain control for acute pancreatitis although we will hold off any opiates for the time being as she is still a bit altered and did require Narcan in the emergency department. Resume serum bicarb tabs for chronic renal tubular acidosis Recommendations: Discharge to home Follow up with your primary care provider in 2-3 weeks. Follow up with your GI team as needed Discharge Medications: Discharge Meds List Acetaminophen 325MG Oral Tablet, TAKE 975 MILLIGRAMS ORAL EVERY 6 HOURS Amitriptyline 10MG Oral Tablet, TAKE 20 MILLIGRAMS ORAL EVERY EVENING busPIRone 10MG Oral Tablet, TAKE 10 MILLIGRAMS ORAL TWICE A DAY Cyanocobalamin 1000MCG/1ML Injection Solution, INJECT 1 MILLILITERS INTRAMUSCULAR MONTHLY Cyclobenzaprine 10MG Oral Tablet, TAKE 5 MILLIGRAMS ORAL THREE TIMES A DAY DULoxetine HCl 30MG Oral Capsule, Delayed Release, TAKE 30 MILLIGRAMS ORAL DAILY Estradiol 0.5MG Oral Tablet, TAKE 0.5 TABLET ORAL DAILY Fluticasone Propionate 0.05MG/1Actuation Nasal [place], SPRAY 1 EACH NASAL TWICE A DAY Folic Acid 1MG Oral Tablet, TAKE 1 MILLIGRAMS ORAL DAILY Loperamide 2 MG Oral Tablet, TAKE 1-2 CAPSULE ORAL NEEDED DAILY Magnesium 500 MG Oral Tablet, TAKE 500 MILLIGRAMS ORAL DAILY Metoprolol Succinate 25MG Oral Tablet, Extended Release, TAKE 1 TABLET ORAL DAILY Nicotine 21MG/24HR Transdermal Patch, Extended Release, APPLY 1 EACH TRANSDERMAL DAILY Nicotine 4 MG Oromucosal Gum, 4 MG OROMUCOSAL Ondansetron HCl 4MG Oral Tablet, TAKE 4 MILLIGRAMS ORAL NEEDED DAILY Potassium Chloride 10MEQ Oral Capsule, Extended Release, TAKE 20 MEQ ORAL DAILY Sodium Bicarbonate 650MG Oral Tablet, TAKE 650 MILLIGRAMS ORAL Vitamin D3 25MCG Oral Capsule, Liquid Filled, TAKE 25 MCG ORAL DAILY Encounters Encounter Diagnosis Start Date Code Code Sys tem Acute kidney failure, unspecified 09/21/2023 SNOMED-CT Personal Care Team Section Performer Name Performer Role Active Date Inactive Da te Discharge Summary Notes [facility] 09/26/2023 15:19 All Demographics Patient Name Age Sex Visit Number Admission Date/Time Attending Physician Date of Service Room and Bed Emergency Contact DAILY NEVILLE 1955 67 years Female [id number] 09/21/2023 14:39 TRINIDAD REYNOLDS 09/21/2023 [id number] ARCHANA SILVA - [id number] 09/25/2023 14:01 Discharge Date: 09/25/2023 Reason for Admission: Acute Kidney Injury, Acute Pancreatitis, Dehydration Final Diagnosis: Acute Kidney Injury, Acute Pancreatitis, Dehydration Problem List Acute injury of kidney Dehydration Nausea with vomiting Crohn's disease w/ complication Nicotine dependence Open wound Crohns Fibromyalgia Pancreatitis Altered mental status Attending Physician: Nelson Lazaro MD Primary Care Physician: PROVOST POSADA History of Present Illness 67-year-old female with medical history significant for Crohn's disease with end ileostomy, history of dehydration related to high output from her ileostomy, fibromyalgia, presenting with abdominal pain, altered mental status. Of note she presented to the emergency department February 2023 with abdominal pain was found to have an elevated lipase but no radiographic evidence of pancreatitis, she declined admission at that time. This admission she was brought into the emergency department by a friend with altered mental status. She received 0.4 mg of Narcan after which she became more responsive. She continued to be a bit somnolent but aroused to gentle stimuli. She was confused and limited historian. She did acknowledge that she has been having abdominal pain. Urine tox screen in the emergency department is positive for cocaine and oxycodone which she is not prescribed. She was found to have acute kidney injury with BUN and creatinine elevated at 46 & 1.91 respectively (baseline closer to 30 & 1.6 (, serum bicarb 15, lipase 2449, bilirubin 1.4, alk phos 133, AST 52, ALT 70. Emergency department she was given a 1 L normal saline bolus and started on maintenance fluids. Hospital Course Patient was admitted to the hospitalist service for further evaluation and treatment of acute kidney injury, Dehydration, pancreatitis. She was maintained on IV fluids and started on a clear liquid diet. Acute kidney injury resolved and creatinine continued to improve, patient kidney function is in fact now better than her previous lab records- creatinnine is 1.1 today and baseline based on records is closer to 1.7. CT abdomen pelvis was obtained which revealed moderate to severe dilation of intrahepatic and extrahepatic bile ducts with mild elevation of the pancreatic duct and equivocal masslike fullness at the ampulla concerning for obstructive process such as stricture or primary sclerosing cholangitis. 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 Cholelithiasis was noted twtih no findings of acute cholecystitis though it is possible the patient has passed a stone. Lipase initially improved down to 132 and then 113. Patient diet was advanced and she is tolerating PO intake on low fat/low fiber diet without increased pain, nausea, or vomiting. She does still endorse some general, diffuse abdominal pain and tenderness to palpation however it is not associated with PO intake. I suspect this is chronic and likely related to her Crohn's disease. Today her lipase is again elevated at 546, though she continues to tolerate PO intake without increased symptoms. Her CT from 09/21 and MRCP from yesterday show no evidence of inflammation in the pancreas. She is not prescribed narcotics but seems to take her partners narcotics and was also positive for cocaine on admission (at which time she required Narcan). I am not comfortable discharging her on narcotics and we discussed her staying to work on pain control however she wants to return home. Lab Results: Last 24 Hours Test Results Units Reference Range Collected WBC 5.85 th/cmm L=5.00 H=10.00 09/25/2023 06:56 NEUT % 80.2 H % L=40.0 H=80.0 09/25/2023 06:56 LYMPH % 7.9 L % L=10.0 H=50.0 09/25/2023 06:56 MONO % 10.6 % L=2.0 H=12.0 09/25/2023 06:56 EOS % 1.0 % L=0.0 H=8.0 09/25/2023 06:56 BASO % 0.0 % L=0.0 H=3.0 09/25/2023 06:56 IG % 0.3 % L=0.0 H=1.1 09/25/2023 06:56 NRBC % 0.0 % L=0.0 H=0.0 09/25/2023 06:56 NEUT abs count 4.7 th/cmm L=1.6 H=8.4 09/25/2023 06:56 LYMPH abs count 0.5 L th/cmm L=1.5 H=4.0 09/25/2023 06:56 MONO abs count 0.6 th/cmm L=0.2 H=1.0 09/25/2023 06:56 EOS abs count 0.1 th/cmm L=0.0 H=0.5 09/25/2023 06:56 BASO abs count 0.0 th/cmm L=0.0 H=0.2 09/25/2023 06:56 IG abs count 0.0 th/cmm L=0.0 H=0.1 09/25/2023 06:56 NRBC abs count 0.0 mil/cmm L=0.0 H=0.0 09/25/2023 06:56 RBC 3.26 L mil/cmm L=3.90 H=5.40 09/25/2023 06:56 HEMOGLOBIN 11.2 L gm/dL L=12.0 H=16.0 09/25/2023 06:56 HEMATOCRIT 36 L % L=37 H=47 09/25/2023 06:56 MCV 109 H fL L=82 H=92 09/25/2023 06:56 MCH 34.4 H pg L=27.0 H=31.0 09/25/2023 06:56 MCHC 31.5 L % L=32.0 H=36.0 09/25/2023 06:56 RDW-SD 60.0 H fL L=39.0 H=49.0 09/25/2023 06:56 PLATELET COUNT 171 th/cmm L=150 H=450 09/25/2023 06:56 GLUCOSE 110 mg/dL L=70 H=116 09/25/2023 06:56 BUN 21 mg/dL L=6 H=25 09/25/2023 06:56 CREATININE 1.10 H mg/dL L=0.51 H=0.95 09/25/2023 06:56 SODIUM SERUM 134 L mmol/L L=136 H=145 09/25/2023 06:56 POTASSIUM SERUM 4.2 mmol/L L=3.4 H=5.2 09/25/2023 06:56 CHLORIDE SERUM 108 mmol/L L=96 H=110 09/25/2023 06:56 CARBON DIOXIDE (CO2) 16 L mmol/L L=22 H=34 09/25/2023 06:56 ANION GAP 10.0 mmol/L 09/25/2023 06:56 CALCIUM SERUM 9.0 mg/dL L=8.2 H=10.2 09/25/2023 06:56 BILIRUBIN TOTAL 0.3 mg/dL L=0.0 H=1.3 09/25/2023 06:56 ALK. PHOS. 112 U/L L=46 H=116 09/25/2023 06:56 SGOT (AST) 22 U/L L=15 H=37 09/25/2023 06:56 SGPT (ALT) 31 U/L L=12 H=78 09/25/2023 06:56 TOTAL PROTEIN 6.3 gm/dL L=6.0 H=8.0 09/25/2023 06:56 ALBUMIN 2.1 L gm/dL L=3.4 H=5.0 09/25/2023 06:56 AGE 67 years 09/25/2023 06:56 eGFR (non-Afr.Amer.) 50 mL/min 09/25/2023 06:56 eGFR (Afr- [place]) 60 mL/min 09/25/2023 06:56 CORRECTED 09/25/2023 06:56 LIPASE. 546 HH U/L L=16 H=77 09/25/2023 06:56 Imaging: CT ABDOMEN PELVIS WO CONTRAST 09/22/23: Lower chest: Bilateral trace pleural effusions. Emphysematous changes within the bilateral lower lungs. Calcified left lower lobe granuloma, stable since at least 2017. Liver: Normal size and attenuation without lesions. Bile ducts: Moderate intrahepatic and extrahepatic biliary ductal dilation. The common bile duct measures 11 mm in diameter with abrupt cut off at the ampulla at the location of equivocally hypoattenuating 0.8 cm mass. The appearance of ductal dilation is present dating back to 2014, although previous exams have been noncontrast. No calcified choledocholithiasis. Gallbladder: No calcified cholelithiasis. Normal caliber wall. An enhancing lymph node is located left posterolateral to the gallbladder body mimicking wall thickening, although has been present over multiple prior studies. Trace pericholecystic fluid. Small volume of air within the gallbladder. No intramural air. No definite fistulization with bowel. Pancreas: Normal size and attenuation. Minimal pancreatic ductal dilation, measures 4 mm at the body/tail. Scattered punctate cystic lesions are favored to represent dilated sidebranches. Spleen: Normal. Adrenals: Nodular thickening left adrenal gland comparison is similar to prior studies may represent hyperplasia or adenoma. Normal right adrenal gland. Kidneys: Multiple fluid attenuation lesions throughout the kidneys consistent with polycystic kidney disease. Right interpole hyperdense lesion without definite enhancement within compared to prior noncontrast exam. Subcentimeter lesions which are too small to characterize. Bilateral punctate renal calculi and medullary nephrocalcinosis again noted. No hydronephrosis. Urinary Bladder: Moderate to markedly distended bladder. Vasculature: No abdominal aortic aneurysm. Partially calcified atherosclerotic disease. Patent celiac and superior mesenteric origins. Patent portal vein. Lymph Nodes: Chronic borderline enlargement of left periaortic lymph nodes. Bowel: No intestinal dilation or abnormal wall thickening within limitations of lack of enteric contrast. Status post colectomy with left lower quadrant ostomy in place. Seton at the perineum at 6:00. Peritoneum and retroperitoneum: Small volume of intraperitoneal fluid adjacent to the spleen on in the paracolic gutters. Chronic bilateral perinephric stranding. Equivocal peripancreatic edema. Abdominal wall: No parastomal hernia. Reproductive organs: Status post hysterectomy with several metallic surgical clips in the pelvis. Osseous structures: No suspicious osseous lesion. IMPRESSION: 1. Moderate to severe dilation of the intrahepatic and extrahepatic bile ducts with mild dilation of the pancreatic duct (double duct sign). Equivocal masslike fullness of the ampulla. Findings are concerning for obstructive process at the ampulla of Vater. Recommend GI consultation for consideration of MRCP versus ERCP for further characterization. Particularly if the patient has a history of inflammatory bowel disease, a stricture/primary sclerosing cholangitis may be considered. 2. Trace pericholecystic fluid with small volume of air within the gallbladder. Correlate with history of instrumentation. No definite fistula to bowel is demonstrated. Trace surrounding inflammation is nonspecific in the setting of ascites. Cannot exclude acute cholecystitis. 3. Equivocal peripancreatic edema. Correlate with lipase to exclude pancreatitis. 4. Polycystic kidneys with medullary nephrocalcinosis and nonobstructive calculi. 5. Small volume ascites and trace bilateral pleural effusions. MRCP 09/24/23: There is marked distention of the gallbladder today. Gallbladder measures about the 49 mm AP, 44 mm transverse and 88 mm superoinferiorly. A small focus of focal adenomyomatosis occurs at the lateral aspect of the gallbladder wall towards the fundus. A minimal amount of pericholecystic fluid may be present. This may relate to a small volume of ascites noted at the upper abdomen. Gallbladder wall is of normal thickness. Several millimetric calculi occur at the dependent gallbladder towards the fundus. There is a sessile polyp suspected at the anterior gallbladder wall, measuring about 7 mm in maximal dimension. The cholelithiasis and polyp or newly appreciated since prior examination of 2016. There is a moderate dilatation of the intra and extra hepatic biliary tree. This appears improved since 2016. Maximal caliber of common bile duct, at about mid edilma, estimated today at about 11 mm, compared to 13 mm previously. No discernible choledocholithiasis. There is a rather abrupt tapering of the distal common bile duct lumen, with a zone of ampullary region stenosis or stricturing estimated at roughly 8 to 9 mm in length. No discernible choledocholithiasis. This configuration is stable since 2016. The pancreas and pancreatic duct appeared unremarkable. Liver appeared free of focal pathology noted. Of normal overall size. Spleen appeared homogenous and of normal size. Numerous renal cysts occur, grossly simple. Adrenal glands unremarkable. There is some free intraperitoneal fluid seen about the spleen and to a lesser extent about the inferior margin of the liver. Minimal dependent subpleural region fluid occurs as well, seen at the posterior costophrenic angles. Bone marrow signal within the image volume unremarkable. IMPRESSION: Distention of the gallbladder, and intra and extra hepatic biliary tree. The latter is marginally improved since prior of 01/15/2016. 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 Please correlate with known information in this regard. No choledocholithiasis. Cholelithiasis noted. Small focus of focal adenomyomatosis occurs at the lateral wall of the gallbladder close to the fundus. No findings of acute cholecystitis. There may be minimal amount of pericholecystic fluid present but the gallbladder wall is normal thickness. The former more likely relates to the small volume of ascites noted at the upper abdomen. Correlation with clinical and biochemical context nonetheless suggested. There is a gallbladder polyp suspected at the anterior wall, sessile with a maximum dimension of 7 mm. Small volume ascites at the upper abdomen. Minimal pleural fluid occurs at the posterior costophrenic angles. Vitals: Date/Time BP (mm/Hg) Heart Rate Resp Temp (C) SPO2% O2 Device 09/25/2023 07:44 142/96 110 18 36.2 TEMPORAL SCANNING 100 % Room Air 21% Physical Exam: GEN: NAD EYES: No scleral icteris NECK: supple, no LAD PULM: CTA b/l no w/r/r CV: RRR with no m/r/g appreciated ABD: Soft, non distended. Tender to palpation diffusely. EXT: no edema NEURO: A&Ox3, 5/5 muscle strength upper and lower ext b/l. Assessment Problem List Acute injury of kidney Dehydration Nausea with vomiting Crohn's disease w/ complication Nicotine dependence Open wound Crohns Fibromyalgia Pancreatitis Altered mental status Recommendations: Discharge to home Follow up with your primary care provider in 2-3 weeks. Follow up with your GI team as needed Discharge Medications: Discharge Meds List Acetaminophen 325MG Oral Tablet, TAKE 975 MILLIGRAMS ORAL EVERY 6 HOURS Amitriptyline 10MG Oral Tablet, TAKE 20 MILLIGRAMS ORAL EVERY EVENING busPIRone 10MG Oral Tablet, TAKE 10 MILLIGRAMS ORAL TWICE A DAY Cyanocobalamin 1000MCG/1ML Injection Solution, INJECT 1 MILLILITERS INTRAMUSCULAR MONTHLY Cyclobenzaprine 10MG Oral Tablet, TAKE 5 MILLIGRAMS ORAL THREE TIMES A DAY DULoxetine HCl 30MG Oral Capsule, Delayed Release, TAKE 30 MILLIGRAMS ORAL DAILY Estradiol 0.5MG Oral Tablet, TAKE 0.5 TABLET ORAL DAILY Fluticasone Propionate 0.05MG/1Actuation Nasal [place], SPRAY 1 EACH NASAL TWICE A DAY Folic Acid 1MG Oral Tablet, TAKE 1 MILLIGRAMS ORAL DAILY Loperamide 2 MG Oral Tablet, TAKE 1-2 CAPSULE ORAL NEEDED DAILY Magnesium 500 MG Oral Tablet, TAKE 500 MILLIGRAMS ORAL DAILY Metoprolol Succinate 25MG Oral Tablet, Extended Release, TAKE 1 TABLET ORAL DAILY Nicotine 21MG/24HR Transdermal Patch, Extended Release, APPLY 1 EACH TRANSDERMAL DAILY Nicotine 4 MG Oromucosal Gum, 4 MG OROMUCOSAL Ondansetron HCl 4MG Oral Tablet, TAKE 4 MILLIGRAMS ORAL NEEDED DAILY Potassium Chloride 10MEQ Oral Capsule, Extended Release, TAKE 20 MEQ ORAL DAILY Sodium Bicarbonate 650MG Oral Tablet, TAKE 650 MILLIGRAMS ORAL Vitamin D3 25MCG Oral Capsule, Liquid Filled, TAKE 25 MCG ORAL DAILY 40 minutes spent on patient discharge. History and Physical Notes [facility] 09/21/2023 14:40 Demographics ns: 09/21/2023 14:19 Admission Date: 09/21/2023 Reason for Admission: Acute kidney injury, hyperkalemia, acute pancreatitis, dehydration Code Status: Attending Physician: Trinidad Reynolds MD Primary Care Physician: PROVOST POSADA History of Present Illness Chief Complaint: DEHYDRATION 67-year-old woman with history of Crohn's for which he has an end ileostomy. She has a long history of becoming dehydrated related to high output from her ileostomy and over the years has required frequent hydration through the infusion center. She did present to the emergency department February 2023 requesting hydration. At that time she had some abdominal pain and was found to have a elevated lipase. However, CT scan did not reveal radiographic evidence of pancreatitis. The patient declined admission at that time. She was brought by a friend to the hospital today. The friend apparently came to the hospital and told someone that he had a unconscious lady in the car. They were going to give her Narcan but their friend denied any history of drug use. She is brought into the emergency department, did ultimately receive 0.4 mg of Narcan after which she woke up. She continues to be a bit somnolent but does arouse. She is confused, limited historian. She does acknowledge that she has been having abdominal pain. Urine tox screen was positive for cocaine and oxycodone. She did admit to taking some oxycodone at home for the abdominal pain. She is found to be to have an acute kidney injury with BUN and creatinine elevated over baseline to 46 and 1.91. It appears that her baseline tends to run approximately 30 and 1.5-1.6. Serum bicarb today is low at 15. She does take take sodium bicarb pills at home for chronic metabolic acidosis. Lipase is markedly elevated at 2449. Bilirubin is likewise elevated to 1.4, alkaline phosphatase 133, AST 52 and ALT of 70. She has been provided with a liter bolus of normal saline, is currently receiving a maintenance fluid. She did receive a DuoNeb and Kayexalate for the hyperkalemia. Repeat basic metabolic profile is pending. She has been referred for admission to the hospital. Past Medical/Surgical/Family/Social History Past Medical History Acute injury of kidney, Dehydration, Nausea with vomiting, Crohn's disease w/ complication, Nicotine dependence, Open wound, Crohns, Fibromyalgia, Pancreatitis, Surgery List: Multiple including ileostomy Family History List: No Family History Documented. The patient is adopted. Past Social History: Alcohol use: Denies Drug use: Talk screen today is positive for cocaine and oxycodone. Patient does admit to taking some oxycodone this morning for her abdominal pain. Tobacco: She is a smoker Allergy List NSAID, Medication CHANTIX, Medication VARENICLINE, Medication Active Home Meds Vitamin D3 25MCG Oral Capsule, Liquid Filled, 25 MCG, ORAL, DAILY Sodium Bicarbonate 650MG Oral Tablet, 650 MILLIGRAMS, ORAL, , take one tablet by mouth every 2 hours as needed Potassium Chloride 10MEQ Oral Capsule, Extended Release, 20 MEQ, ORAL, DAILY Ondansetron HCl 4MG Oral Tablet, 4 MILLIGRAMS, ORAL, NEEDED DAILY Nicotine 21MG/24HR Transdermal Patch, Extended Release, 1 EACH, TRANSDERMAL, DAILY Nicotine 4 MG Oromucosal Gum, 4 MG, OROMUCOSAL, Loperamide 2 MG Oral Tablet, , ORAL, NEEDED DAILY Folic Acid 1MG Oral Tablet, 1 MILLIGRAMS, ORAL, DAILY Fluticasone Propionate 0.05MG/1Actuation Nasal [place], 1 EACH, NASAL, TWICE A DAY Estradiol 0.5MG Oral Tablet, 0.5 TABLET, ORAL, DAILY DULoxetine HCl 30MG Oral Capsule, Delayed Release, 30 MILLIGRAMS, ORAL, DAILY Cyclobenzaprine 10MG Oral Tablet, 5 MILLIGRAMS, ORAL, THREE TIMES A DAY Cyanocobalamin 1000MCG/1ML Injection Solution, 1 MILLILITERS, INTRAMUSCULAR, MONTHLY, Previous Home Med busPIRone 10MG Oral Tablet, 10 MILLIGRAMS, ORAL, TWICE A DAY Amitriptyline 10MG Oral Tablet, 20 MILLIGRAMS, ORAL, EVERY EVENING Acetaminophen 325MG Oral Tablet, 975 MILLIGRAMS, ORAL, EVERY 6 HOURS Metoprolol Succinate 25MG Oral Tablet, Extended Release, 1 TABLET, ORAL, DAILY, Existing Prescription Magnesium 500 MG Oral Tablet, 500 MILLIGRAMS, ORAL, DAILY, Previous Home Med Medication Reconciliation Source Patient Family PCP List Home List Pharmacy [facility] or Facility list Review of Systems Constitutional: (-) fever (-) weight changes Eyes: (-) blurry vision (-) eye pain ENT: (-) sore throat (-) ear pain (-) epistaxis Neck: (-) lymphadenopathy Respiratory: (-) SOB (-) cough Heart: (-) chest pain (-) palpitations Abdomen: (-) nausea (-) vomiting (+) diarrhea Genitourinary: (-) urinary frequency (-) urgency Extremities: (-) edema Skin: (-) rashes (-) lesions Neuro: (-) headache (-) dizziness. Physical Exam Date/Time BP (mm/Hg) Heart Rate Resp Temp (C) SPO2% O2 Device 09/21/2023 13:10 184/118 115 26 100 % Room Air 21% GENERAL: Thin chronically ill-appearing woman who appears weak EYES: Pupils are equal, round and reactive to light. Sclerae are white without injection or icterus. HENT: Normocephalic, atraumatic. Mucus membranes moist. Epistaxis absent. She is edentulous. NECK: Supple. No thyromegaly or adenopathy. CHEST/LUNGS: Clear to auscultation bilaterally. No rales, rhonchi or wheezes. HEART: Regular rate and rhythm. No murmurs, rubs or gallop. ABDOMEN: Soft, non-distended, non-tender. Normal bowel sounds x4Q. Ileostomy in place. EXTREMITIES: No cyanosis, edema. NEUROLOGIC: She is somnolent but arousable.. Generally weak. She is currently limited historian, sometimes mumbles a bit when asked questions. Pre-Admission Studies: Labs last 24 hours Test Results Units Reference Range Collected BASIC METABOLIC PANEL (BMP) 09/21/2023 14:00 Specimen type: VENOUS VENOUS 09/21/2023 10:40 pH (venous) 7.21 L L=7.38 H=7.46 09/21/2023 10:40 PCO2 (venous) 30.4 L mm Hg L=41.0 H=51.0 09/21/2023 10:40 PO2 (venous) 7 L mm Hg L=30 H=50 09/21/2023 10:40 HCO3 -16 L mmol/L L=22 H=26 09/21/2023 10:40 TCO2 (venous) 13 L mmol/L L=22 H=28 09/21/2023 10:40 BASE EXCESS (venous) -16 L mmol/L L=-2 H=3 09/21/2023 10:40 Assist vent. 09/21/2023 10:40 Resp. Rate /min. 09/21/2023 10:40 Temp. 09/21/2023 10:40 AMMONIA <10 L umol/L L=19 H=54 09/21/2023 10:35 GLUCOSE 138 H mg/dL L=70 H=116 09/21/2023 10:35 BUN 46 H mg/dL L=6 H=25 09/21/2023 10:35 CREATININE 1.91 H mg/dL L=0.51 H=0.95 09/21/2023 10:35 SODIUM SERUM 138 mmol/L L=136 H=145 09/21/2023 10:35 POTASSIUM SERUM 4.6 mmol/L L=3.4 H=5.2 09/21/2023 10:35 CHLORIDE SERUM 110 mmol/L L=96 H=110 09/21/2023 10:35 CARBON DIOXIDE (CO2) 15 L mmol/L L=22 H=34 09/21/2023 10:35 ANION GAP 13.5 mmol/L 09/21/2023 10:35 CALCIUM SERUM 8.4 mg/dL L=8.2 H=10.2 09/21/2023 10:35 BILIRUBIN TOTAL 1.4 H mg/dL L=0.0 H=1.3 09/21/2023 10:35 ALK. PHOS. 133 H U/L L=46 H=116 09/21/2023 10:35 SGOT (AST) 52 H U/L L=15 H=37 09/21/2023 10:35 SGPT (ALT) 70 U/L L=12 H=78 09/21/2023 10:35 TOTAL PROTEIN 6.2 gm/dL L=6.0 H=8.0 09/21/2023 10:35 ALBUMIN 2.5 L gm/dL L=3.4 H=5.0 09/21/2023 10:35 LACTIC ACID 4.3 HH mmol/L L=0.7 H=2.1 09/21/2023 10:35 LIPASE. 2449 HH U/L L=16 H=77 09/21/2023 10:35 CANNABINOIDS NEGATIVE NEGATIVE Cutoff = 50 ng/mL 09/21/2023 10:01 PHENCYCLIDINE NEGATIVE NEGATIVE Cutoff = 25 ng/mL 09/21/2023 10:01 COCAINE POSITIVE A POSITIVE Cutoff = 150 ng/mL 09/21/2023 10:01 METHAMPHETAMINES NEGATIVE NEGATIVE Cutoff = 500 ng/mL 09/21/2023 10:01 OPIATES NEGATIVE NEGATIVE Cutoff = 100 ng/mL 09/21/2023 10:01 AMPHETAMINES NEGATIVE NEGATIVE Cutoff = 500 ng/mL 09/21/2023 10:01 BENZODIAZEPINES NEGATIVE NEGATIVE Cutoff = 150 ng/mL 09/21/2023 10:01 TRICYCLIC ANTIDEP NEGATIVE NEGATIVE Cutoff = 300 ng/mL 09/21/2023 10:01 METHADONE NEGATIVE NEGATIVE Cutoff = 200 ng/mL 09/21/2023 10:01 BARBITURATES NEGATIVE NEGATIVE Cutoff = 200 ng/mL 09/21/2023 10:01 OXYCODONE POSITIVE A POSITIVE Cutoff = 100 ng/mL 09/21/2023 10:01 BUPRENORPHINE NEGATIVE NEGATIVE Cutoff = 10 mg/mL 09/21/2023 10:01 COLLECTION MODE: BARR BARR 09/21/2023 10:01 Color YELLOW YELLOW yellow 09/21/2023 10:01 Appearance CLEAR CLEAR clear 09/21/2023 10:01 Glucose urine NEGATIVE NEGATIVE negative mg/dl 09/21/2023 10:01 Bilirubin NEGATIVE NEGATIVE negative 09/21/2023 10:01 Ketones NEGATIVE NEGATIVE negative mg/dl 09/21/2023 10:01 Spec gravity 1.015 1.015 1.003 - 1.030 09/21/2023 10:01 pH urine 7.0 7.0 5.0 - 7.0 09/21/2023 10:01 Protein 100 A 100 negative mg/dl 09/21/2023 10:01 Urobilinogen 0.2 0.2 09/21/2023 10:01 Nitrite. NEGATIVE NEGATIVE negative 09/21/2023 10:01 Blood TRACE-IN A TRACE-IN negative 09/21/2023 10:01 Leukocytes. NEGATIVE NEGATIVE negative 09/21/2023 10:01 MICROSCOPIC INDICATED INDICATED 09/21/2023 10:01 WBCs. 0-5 0-5 0-5 / hpf 09/21/2023 10:01 Epith cells 5-10 5-10 0-5 / hpf 09/21/2023 10:01 Cell types squam+trans squam+trans 09/21/2023 10:01 Crystals none none none 09/21/2023 10:01 Bacteria moderate moderate none 09/21/2023 10:01 Mucus present present none 09/21/2023 10:01 Casts none none none /lpf 09/21/2023 10:01 Other CLUE CELLS PRESENT CLUE CELLS PRESENT 09/21/2023 10:01 TROPONIN HS 54.1 pg/mL L=0.0 H=60.4 09/21/2023 09:50 Specimen seq. ADM. ADM. 09/21/2023 09:50 Specimen type: VENOUS VENOUS 09/21/2023 09:11 pH (venous) 7.11 LL L=7.38 H=7.46 09/21/2023 09:11 PCO2 (venous) 43.8 mm Hg L=41.0 H=51.0 09/21/2023 09:11 PO2 (venous) 32 mm Hg L=30 H=50 09/21/2023 09:11 HCO3 14 L mmol/L L=22 H=26 09/21/2023 09:11 TCO2 (venous) 15 L mmol/L L=22 H=28 09/21/2023 09:11 BASE EXCESS (venous) -16 L mmol/L L=-2 H=3 09/21/2023 09:11 Assist vent. 09/21/2023 09:11 Resp. Rate /min. 09/21/2023 09:11 Temp. 09/21/2023 09:11 WBC 24.68 HH th/cmm L=5.00 H=10.00 09/21/2023 09:00 HEMOGLOBIN 16.7 H gm/dL L=12.0 H=16.0 09/21/2023 09:00 HEMATOCRIT 50 H % L=37 H=47 09/21/2023 09:00 PLATELET COUNT 372 th/cmm L=150 H=450 09/21/2023 09:00 Radiology/EKG: CT scan of the head without contrast reveals no acute abnormality. Portable chest x-ray reviewed by me personally reveals coarse appearance of the lung, bronchial, parenchyma with hyperexpansion suggesting underlying obstructive pulmonary disease. No new airspace opacity to suggest pneumonia. Unchanged medial left lower lobe 5 mm well circumscribed opacity consistent with a granuloma as seen on prior CT scan from 03/04/2023. No pulmonary vascular congestion Eros. No peribronchial thickening or cuffing. No pneumothorax. Healed chronic fracture deformity of the posterolateral right ninth rib. No new osseous findings. Problem List Altered mental status Pancreatitis Fibromyalgia Crohns Open wound Nicotine dependence Crohn's disease w/ complication Nausea with vomiting Dehydration Acute injury of kidney Plan Admit to [facility] With telemetry as she is tachycardic Will give her usual dose of metoprolol ER 25 mg daily Continue hydration for acute kidney injury, Presumed acute pancreatitis and mild hyperkalemia, follow-up BMP is pending Clear liquid diet for now Pain control for acute pancreatitis although we will hold off any opiates for the time being as she is still a bit altered and did require Narcan in the emergency department. Resume serum bicarb tabs for chronic renal tubular acidosis Patient admitted as inpatient as I anticipate them to be here greater than 2 midnights due to symptoms of Acute pancreatitis, acute kidney injury, altered mental status and hyperkalemia. Progress Notes [facility] 09/24/2023 13:47 09/23/2023 67-year-old with history of Crohn's with ileostomy. History of dehydration related to high ileostomy output. Chronic metabolic acidosis on sodium bicarb orally at home. Admitted with markedly elevated lipase with cocaine and oxycodone in her urine tox screen. Alteration in mental status improved with Narcan given in the emergency room. Patient continues to complain of abdominal and back pain. CT abdomen pelvis yesterday showed moderate to severe dilation of the intrahepatic and extrahepatic bile ducts with mild dilation of the pancreatic duct and equivocal masslike fullness of the ampulla concerning for obstructive process such as stricture or primary sclerosing cholangitis. GI consult for consideration of ERCP recommended. Reached out to [facility] hospitalist service with GI consult regarding transfer. Ordered Meds Table Ordered Medication Start Date/Time Dosage Route Frequency SODIUM BICARB TABLET (NF): 650MG 09/21/2023 14:35 650 MG ORAL QID SODIUM CHLORIDE 0.9% 1000ML 09/21/2023 14:38 100 ml/hr INTRAVENOUS CONT ACETAMINOPHEN TABLET: 325MG 09/21/2023 14:38 650 MG ORAL PRN Q4H CALCIUM CARBONATE TAB CHEWABLE UD: 500MG 09/21/2023 14:38 1000 MG CHEW PRN Q2H ONDANSETRON INJ SDV: 4MG/2ML 09/21/2023 14:38 4 MG IV PUSH PRN Q4H ED BOARDER BIN 09/21/2023 15:38 1 EA --- PRN HYDROmorphone INJ SYRINGE: 0.5MG/0.5ML 09/21/2023 16:09 0.5 MG IV PUSH PRN Q4H METOPROLOL SUCCINATE TABLET ER: 25MG 09/21/2023 14:33 25 MG ORAL DAILY AMITRIPTYLINE TABLET: 10MG 09/21/2023 14:33 20 MG ORAL BEDTIME BusPIRone TABLET : 15MG 09/21/2023 14:33 7.5 MG ORAL BID CYCLOBENZAPRINE TABLET: 10MG 09/21/2023 14:33 5 MG ORAL TID DULoxetine CAPSULE DR: 30MG 09/21/2023 14:33 30 MG ORAL DAILY VITAMIN D3 TABLET: 1000UNITS 09/21/2023 14:33 1000 UNITS ORAL DAILY FOLIC ACID TABLET: 1MG 09/21/2023 14:33 1 MG ORAL DAILY LOPERAMIDE CAPSULE: 2MG 09/21/2023 14:33 2 MG ORAL PRN NICOTINE TRANSDERM PATCH: 21MG 09/21/2023 14:33 1 EA TRANSDERMAL DAILY FLUTICASONE NASAL SPRAY 0.05% 09/21/2023 14:33 1 SPRAY NASAL EACH NOSTRIL BID Vital Signs: Today Date/Time BP (mm/Hg) BP Position/Site MAP (mm/Hg) Heart Rate Pulse Site Resp Temp (C) Temp (F) SPO2% O2 L/min FiO2 O2 Device Blood Sugar Pain Score Height (cm) Height (in) Weight (kg) Weight (lbs/ozs) Scale BMI BSA Head Cir (cm) 09/23/2023 20:09 149/88 LYING/R ARM 108 96 RADIAL 18 37.2 TEMPORAL SCANNING 99 TEMPORAL SCANNING 100 % Room Air 21% 09/23/2023 18:45 115 RADIAL 09/23/2023 16:50 154/91 Sitting/Right Arm 112 96 Pulse Ox 18 37.1 Temporal Scanning 98.8 Temporal Scanning 100 % Room Air 21% 09/23/2023 11:39 150/90 Sitting/Right Arm 110 97 Pulse Ox 18 37.2 Temporal Scanning 99 Temporal Scanning 100 % Room Air 21% 09/23/2023 11:14 97 APICAL 09/23/2023 10:32 120 RADIAL 09/23/2023 10:25 140 APICAL 09/23/2023 07:45 138/92 Lying/Right Arm 107 116 Pulse Ox 18 36.8 Temporal Scanning 98.2 Temporal Scanning 98 % Room Air 21% 09/23/2023 04:34 142/95 LYING/R ARM 111 124 RADIAL 18 36.8 TEMPORAL SCANNING 98.2 TEMPORAL SCANNING 99 % Room Air 21% 09/23/2023 00:04 155/105 LYING/L ARM 122 125 RADIAL 18 37.1 TEMPORAL SCANNING 98.8 TEMPORAL SCANNING 100 % GENERAL: Thin chronically ill-appearing woman who appears weak EYES: Pupils are equal, round, reactive to light. Sclerae are white without icterus. NECK: Supple. CHEST/LUNGS: Clear to auscultation bilaterally. HEART: Regular rate and rhythm. No murmurs, rubs or gallop. ABDOMEN: Soft, diffuesly tender.. Normal bowel sounds normal.. Ileostomy in place. EXTREMITIES: No edema. NEUROLOGIC: Generally weak. No focal deficits. Labs last 24 hours Test Results Units Reference Range Collected WBC 14.00 H th/cmm L=5.00 H=10.00 09/23/2023 06:40 HEMOGLOBIN 13.2 gm/dL L=12.0 H=16.0 09/23/2023 06:40 HEMATOCRIT 38 % L=37 H=47 09/23/2023 06:40 PLATELET COUNT 176 th/cmm L=150 H=450 09/23/2023 06:40 GLUCOSE 101 mg/dL L=70 H=116 09/23/2023 06:40 BUN 20 mg/dL L=6 H=25 09/23/2023 06:40 CREATININE 1.26 H mg/dL L=0.51 H=0.95 09/23/2023 06:40 SODIUM SERUM 138 mmol/L L=136 H=145 09/23/2023 06:40 POTASSIUM SERUM 3.0 L mmol/L L=3.4 H=5.2 09/23/2023 06:40 CHLORIDE SERUM 104 mmol/L L=96 H=110 09/23/2023 06:40 CARBON DIOXIDE (CO2) 22 mmol/L L=22 H=34 09/23/2023 06:40 ANION GAP 12.4 mmol/L 09/23/2023 06:40 CALCIUM SERUM 8.4 mg/dL L=8.2 H=10.2 09/23/2023 06:40 BILIRUBIN TOTAL 1.0 mg/dL L=0.0 H=1.3 09/23/2023 06:40 ALK. PHOS. 138 H U/L L=46 H=116 09/23/2023 06:40 SGOT (AST) 33 U/L L=15 H=37 09/23/2023 06:40 SGPT (ALT) 57 U/L L=12 H=78 09/23/2023 06:40 TOTAL PROTEIN 5.8 L gm/dL L=6.0 H=8.0 09/23/2023 06:40 ALBUMIN 2.5 L gm/dL L=3.4 H=5.0 09/23/2023 06:40 LIPASE. 132 HH U/L L=16 H=77 09/23/2023 06:40 IMAGING: CT ABDOMEN PELVIS WO CONTRAST 09/22/23: Lower chest: Bilateral trace pleural effusions. Emphysematous changes within the bilateral lower lungs. Calcified left lower lobe granuloma, stable since at least 2017. Liver: Normal size and attenuation without lesions. Bile ducts: Moderate intrahepatic and extrahepatic biliary ductal dilation. The common bile duct measures 11 mm in diameter with abrupt cut off at the ampulla at the location of equivocally hypoattenuating 0.8 cm mass. The appearance of ductal dilation is present dating back to 2015, although previous exams have been noncontrast. No calcified choledocholithiasis. Gallbladder: No calcified cholelithiasis. Normal caliber wall. An enhancing lymph node is located left posterolateral to the gallbladder body mimicking wall thickening, although has been present over multiple prior studies. Trace pericholecystic fluid. Small volume of air within the gallbladder. No intramural air. No definite fistulization with bowel. Pancreas: Normal size and attenuation. Minimal pancreatic ductal dilation, measures 4 mm at the body/tail. Scattered punctate cystic lesions are favored to represent dilated sidebranches. Spleen: Normal. Adrenals: Nodular thickening left adrenal gland comparison is similar to prior studies may represent hyperplasia or adenoma. Normal right adrenal gland. Kidneys: Multiple fluid attenuation lesions throughout the kidneys consistent with polycystic kidney disease. Right interpole hyperdense lesion without definite enhancement within compared to prior noncontrast exam. Subcentimeter lesions which are too small to characterize. Bilateral punctate renal calculi and medullary nephrocalcinosis again noted. No hydronephrosis. Urinary Bladder: Moderate to markedly distended bladder. Vasculature: No abdominal aortic aneurysm. Partially calcified atherosclerotic disease. Patent celiac and superior mesenteric origins. Patent portal vein. Lymph Nodes: Chronic borderline enlargement of left periaortic lymph nodes. Bowel: No intestinal dilation or abnormal wall thickening within limitations of lack of enteric contrast. Status post colectomy with left lower quadrant ostomy in place. Seton at the perineum at 6:00. Peritoneum and retroperitoneum: Small volume of intraperitoneal fluid adjacent to the spleen on in the paracolic gutters. Chronic bilateral perinephric stranding. Equivocal peripancreatic edema. Abdominal wall: No parastomal hernia. Reproductive organs: Status post hysterectomy with several metallic surgical clips in the pelvis. Osseous structures: No suspicious osseous lesion. IMPRESSION: 1. Moderate to severe dilation of the intrahepatic and extrahepatic bile ducts with mild dilation of the pancreatic duct (double duct sign). Equivocal masslike fullness of the ampulla. Findings are concerning for obstructive process at the ampulla of Vater. Recommend GI consultation for consideration of MRCP versus ERCP for further characterization. Particularly if the patient has a history of inflammatory bowel disease, a stricture/primary sclerosing cholangitis may be considered. 2. Trace pericholecystic fluid with small volume of air within the gallbladder. Correlate with history of instrumentation. No definite fistula to bowel is demonstrated. Trace surrounding inflammation is nonspecific in the setting of ascites. Cannot exclude acute cholecystitis. 3. Equivocal peripancreatic edema. Correlate with lipase to exclude pancreatitis. 4. Polycystic kidneys with medullary nephrocalcinosis and nonobstructive calculi. 5. Small volume ascites and trace bilateral pleural effusions. Problem List Altered mental status Pancreatitis Fibromyalgia Crohns Open wound Nicotine dependence Crohn's disease w/ complication Nausea with vomiting Dehydration Acute injury of kidney PLAN Acute kidney injury Resolved, creatinine 1.26 today which is within patient's baseline range. Lipase improved this morning down to 132 from 2249 Continue to trend Continue IV fluids with poor PO intake Advance diet as tolerated. Crohn's disease CT abdomen pelvis abnormal (see above for details) with moderate to severe dilation of the intrahepatic and extrahepatic bile ducts with mild dilation of the pancreatic duct and equivocal masslike fullness of the ampulla concerning for obstructive process such as stricture or primary sclerosing cholangitis. Reached out to [facility] hospitalist service with GI consult regarding transfer for further evaluation including ERCP, awaiting call back. [facility] 09/22/2023 17:29 09/22/2023 67-year-old with history of Crohn's with ileostomy. History of dehydration related to high ileostomy output. Chronic metabolic acidosis on sodium bicarb orally at home. Admitted with markedly elevated lipase with cocaine and oxycodone in her urine tox screen. Alteration in mental status with Narcan given in the emergency room. Nursing reports somnolence and small pupils. Patient is somnolent but responds. She complains of abdominal pain. Her significant other says she does not drink alcohol. She has taken some of his oxycodone and he says that she does use drugs on occasion. She has gotten hydromorphone IV for abdominal pain. Ordered Meds Table Ordered Medication Start Date/Time Dosage Route Frequency SODIUM BICARB TABLET (NF): 650MG 09/21/2023 14:35 650 MG ORAL QID SODIUM CHLORIDE 0.9% 1000ML 09/21/2023 14:38 100 ml/hr INTRAVENOUS CONT ACETAMINOPHEN TABLET: 325MG 09/21/2023 14:38 650 MG ORAL PRN Q4H CALCIUM CARBONATE TAB CHEWABLE UD: 500MG 09/21/2023 14:38 1000 MG CHEW PRN Q2H ONDANSETRON INJ SDV: 4MG/2ML 09/21/2023 14:38 4 MG IV PUSH PRN Q4H ED BOARDER BIN 09/21/2023 15:38 1 EA --- PRN HYDROmorphone INJ SYRINGE: 0.5MG/0.5ML 09/21/2023 16:09 0.5 MG IV PUSH PRN Q4H METOPROLOL SUCCINATE TABLET ER: 25MG 09/21/2023 14:33 25 MG ORAL DAILY AMITRIPTYLINE TABLET: 10MG 09/21/2023 14:33 20 MG ORAL BEDTIME BusPIRone TABLET : 15MG 09/21/2023 14:33 7.5 MG ORAL BID CYCLOBENZAPRINE TABLET: 10MG 09/21/2023 14:33 5 MG ORAL TID DULoxetine CAPSULE DR: 30MG 09/21/2023 14:33 30 MG ORAL DAILY VITAMIN D3 TABLET: 1000UNITS 09/21/2023 14:33 1000 UNITS ORAL DAILY FOLIC ACID TABLET: 1MG 09/21/2023 14:33 1 MG ORAL DAILY LOPERAMIDE CAPSULE: 2MG 09/21/2023 14:33 2 MG ORAL PRN NICOTINE TRANSDERM PATCH: 21MG 09/21/2023 14:33 1 EA TRANSDERMAL DAILY FLUTICASONE NASAL SPRAY 0.05% 09/21/2023 14:33 1 SPRAY NASAL EACH NOSTRIL BID Vital Signs: Today Date/Time BP (mm/Hg) BP Position/Site MAP (mm/Hg) Heart Rate Pulse Site Resp Temp (C) Temp (F) SPO2% O2 L/min FiO2 O2 Device Blood Sugar Pain Score Height (cm) Height (in) Weight (kg) Weight (lbs/ozs) Scale BMI BSA Head Cir (cm) 09/22/2023 08:17 176/110 LYING/L ARM 132 09/22/2023 07:33 111 APICAL 96 % Room Air 21% 09/22/2023 03:30 184/111 LYING/R ARM 135 106 BRACHIAL 16 37.3 TEMPORAL SCANNING 99.1 TEMPORAL SCANNING 97 % Room Air 21% GENERAL: Thin chronically ill-appearing woman who appears weak EYES: Pupils are Small but equal.. Sclerae are white without icterus.. NECK: Supple. CHEST/LUNGS: Clear to auscultation bilaterally. HEART: Regular rate and rhythm. No murmurs, rubs or gallop. ABDOMEN: Soft, diffuesly tender.. Normal bowel sounds normal.. Ileostomy in place. EXTREMITIES: No edema. NEUROLOGIC: She is somnolent but arousable.. Generally weak. She is currently limited historian, sometimes mumbles a bit when asked questions. Labs last 24 hours Test Results Units Reference Range Collected WBC 19.15 H th/cmm L=5.00 H=10.00 09/22/2023 08:39 HEMOGLOBIN 14.0 gm/dL L=12.0 H=16.0 09/22/2023 08:39 HEMATOCRIT 40 % L=37 H=47 09/22/2023 08:39 PLATELET COUNT DNR DNR L=150 H=450 09/22/2023 08:39 Platelet est. Adequate Adequate 09/22/2023 08:39 GLUCOSE 79 mg/dL L=70 H=116 09/22/2023 08:39 BUN 31 H mg/dL L=6 H=25 09/22/2023 08:39 CREATININE 1.37 H mg/dL L=0.51 H=0.95 09/22/2023 08:39 SODIUM SERUM 135 L mmol/L L=136 H=145 09/22/2023 08:39 POTASSIUM SERUM 3.6 mmol/L L=3.4 H=5.2 09/22/2023 08:39 CHLORIDE SERUM 106 mmol/L L=96 H=110 09/22/2023 08:39 CARBON DIOXIDE (CO2) 15 L mmol/L L=22 H=34 09/22/2023 08:39 ANION GAP 13.9 mmol/L 09/22/2023 08:39 CALCIUM SERUM 8.9 mg/dL L=8.2 H=10.2 09/22/2023 08:39 BILIRUBIN TOTAL 1.1 mg/dL L=0.0 H=1.3 09/22/2023 08:39 ALK. PHOS. 139 H U/L L=46 H=116 09/22/2023 08:39 SGOT (AST) 52 H U/L L=15 H=37 09/22/2023 08:39 SGPT (ALT) 67 U/L L=12 H=78 09/22/2023 08:39 TOTAL PROTEIN 6.6 gm/dL L=6.0 H=8.0 09/22/2023 08:39 ALBUMIN 2.7 L gm/dL L=3.4 H=5.0 09/22/2023 08:39 MAGNESIUM 1.9 mg/dL L=1.8 H=2.4 09/22/2023 08:39 Problem List Altered mental status Pancreatitis Fibromyalgia Crohns Open wound Nicotine dependence Crohn's disease w/ complication Nausea with vomiting Dehydration Acute injury of kidney PLAN - Continue IV fluids Monitor labs including lipase CT - results pending. Clear liquids [facility] 09/24/2023 17:16 09/24/2023 67-year-old with history of Crohn's with ileostomy. History of dehydration related to high ileostomy output. Chronic metabolic acidosis on sodium bicarb orally at home. Admitted with markedly elevated lipase with cocaine and oxycodone in her urine tox screen. Alteration in mental status improved with Narcan given in the emergency room. Patient is feeling much better today. Tolerated full liquid diet and is going to trial some solids. No nausea, minimal abdominal pain though is a bit tender to palpation. MRCP today showed mostly chronic changes. Lipase continues to trend down. Ordered Meds Table Ordered Medication Start Date/Time Dosage Route Frequency SODIUM BICARB TABLET (NF): 650MG 09/21/2023 14:35 650 MG ORAL QID ACETAMINOPHEN TABLET: 325MG 09/21/2023 14:38 650 MG ORAL PRN Q4H CALCIUM CARBONATE TAB CHEWABLE UD: 500MG 09/21/2023 14:38 1000 MG CHEW PRN Q2H ONDANSETRON INJ SDV: 4MG/2ML 09/21/2023 14:38 4 MG IV PUSH PRN Q4H ED BOARDER BIN 09/21/2023 15:38 1 EA --- PRN HYDROmorphone INJ SYRINGE: 0.5MG/0.5ML 09/21/2023 16:09 0.5 MG IV PUSH PRN Q4H METOPROLOL SUCCINATE TABLET ER: 25MG 09/21/2023 14:33 25 MG ORAL DAILY AMITRIPTYLINE TABLET: 10MG 09/21/2023 14:33 20 MG ORAL BEDTIME BusPIRone TABLET : 15MG 09/21/2023 14:33 7.5 MG ORAL BID CYCLOBENZAPRINE TABLET: 10MG 09/21/2023 14:33 5 MG ORAL TID DULoxetine CAPSULE DR: 30MG 09/21/2023 14:33 30 MG ORAL DAILY VITAMIN D3 TABLET: 1000UNITS 09/21/2023 14:33 1000 UNITS ORAL DAILY FOLIC ACID TABLET: 1MG 09/21/2023 14:33 1 MG ORAL DAILY LOPERAMIDE CAPSULE: 2MG 09/21/2023 14:33 2 MG ORAL PRN NICOTINE TRANSDERM PATCH: 21MG 09/21/2023 14:33 1 EA TRANSDERMAL DAILY FLUTICASONE NASAL SPRAY 0.05% 09/21/2023 14:33 1 SPRAY NASAL EACH NOSTRIL BID POTASSIUM CHL TABLET: 20mEq 09/24/2023 10:00 20 MEQ ORAL BID WITH FOOD Vital Signs: Today Date/Time BP (mm/Hg) BP Position/Site MAP (mm/Hg) Heart Rate Pulse Site Resp Temp (C) Temp (F) SPO2% O2 L/min FiO2 O2 Device Blood Sugar Pain Score Height (cm) Height (in) Weight (kg) Weight (lbs/ozs) Scale BMI BSA Head Cir (cm) 09/24/2023 16:18 117/80 LYING/R ARM 92 100 BRACHIAL 18 36.3 TEMPORAL SCANNING 97.3 TEMPORAL SCANNING 100 % 09/24/2023 14:08 110 APICAL 09/24/2023 11:50 106/67 LYING/R ARM 80 97 BRACHIAL 18 36.2 TEMPORAL SCANNING 97.2 TEMPORAL SCANNING 100 % Room Air 21% 09/24/2023 08:00 133/82 LYING/R ARM 99 95 BRACHIAL 18 36.4 TEMPORAL SCANNING 97.5 TEMPORAL SCANNING 99 % Room Air 21% 09/24/2023 04:43 154/96 LYING/R ARM 115 100 RADIAL 18 37.3 TEMPORAL SCANNING 99.1 TEMPORAL SCANNING 99 % Room Air 21% 09/24/2023 00:26 124/72 LYING/R ARM 89 83 RADIAL 18 36.1 TEMPORAL SCANNING 97 TEMPORAL SCANNING 100 % Room Air 21% GENERAL: Thin chronically ill-appearing woman who appears weak EYES: Pupils are equal, round, reactive to light. Sclerae are white without icterus. NECK: Supple. CHEST/LUNGS: Clear to auscultation bilaterally. HEART: Regular rate and rhythm. No murmurs, rubs or gallop. ABDOMEN: Soft, diffusely tender.. Normal bowel sounds normal.. Ileostomy in place. EXTREMITIES: No edema. NEUROLOGIC: Awake and alert. No focal deficits. Labs last 24 hours Test Results Units Reference Range Collected GLUCOSE 94 mg/dL L=70 H=116 09/24/2023 07:15 BUN 14 mg/dL L=6 H=25 09/24/2023 07:15 CREATININE 1.10 H mg/dL L=0.51 H=0.95 09/24/2023 07:15 SODIUM SERUM 139 mmol/L L=136 H=145 09/24/2023 07:15 POTASSIUM SERUM 3.0 L mmol/L L=3.4 H=5.2 09/24/2023 07:15 CHLORIDE SERUM 109 mmol/L L=96 H=110 09/24/2023 07:15 CARBON DIOXIDE (CO2) 20 L mmol/L L=22 H=34 09/24/2023 07:15 ANION GAP 10.1 mmol/L 09/24/2023 07:15 CALCIUM SERUM 8.5 mg/dL L=8.2 H=10.2 09/24/2023 07:15 WBC 6.75 th/cmm L=5.00 H=10.00 09/24/2023 07:15 HEMOGLOBIN 11.6 L gm/dL L=12.0 H=16.0 09/24/2023 07:15 HEMATOCRIT 33 L % L=37 H=47 09/24/2023 07:15 PLATELET COUNT 165 th/cmm L=150 H=450 09/24/2023 07:15 LIPASE. 113 HH U/L L=16 H=77 09/24/2023 07:15 IMAGING: CT ABDOMEN PELVIS WO CONTRAST 09/22/23: Lower chest: Bilateral trace pleural effusions. Emphysematous changes within the bilateral lower lungs. Calcified left lower lobe granuloma, stable since at least 2016. Liver: Normal size and attenuation without lesions. Bile ducts: Moderate intrahepatic and extrahepatic biliary ductal dilation. The common bile duct measures 11 mm in diameter with abrupt cut off at the ampulla at the location of equivocally hypoattenuating 0.8 cm mass. The appearance of ductal dilation is present dating back to 2015, although previous exams have been noncontrast. No calcified choledocholithiasis. Gallbladder: No calcified cholelithiasis. Normal caliber wall. An enhancing lymph node is located left posterolateral to the gallbladder body mimicking wall thickening, although has been present over multiple prior studies. Trace pericholecystic fluid. Small volume of air within the gallbladder. No intramural air. No definite fistulization with bowel. Pancreas: Normal size and attenuation. Minimal pancreatic ductal dilation, measures 4 mm at the body/tail. Scattered punctate cystic lesions are favored to represent dilated sidebranches. Spleen: Normal. Adrenals: Nodular thickening left adrenal gland comparison is similar to prior studies may represent hyperplasia or adenoma. Normal right adrenal gland. Kidneys: Multiple fluid attenuation lesions throughout the kidneys consistent with polycystic kidney disease. Right interpole hyperdense lesion without definite enhancement within compared to prior noncontrast exam. Subcentimeter lesions which are too small to characterize. Bilateral punctate renal calculi and medullary nephrocalcinosis again noted. No hydronephrosis. Urinary Bladder: Moderate to markedly distended bladder. Vasculature: No abdominal aortic aneurysm. Partially calcified atherosclerotic disease. Patent celiac and superior mesenteric origins. Patent portal vein. Lymph Nodes: Chronic borderline enlargement of left periaortic lymph nodes. Bowel: No intestinal dilation or abnormal wall thickening within limitations of lack of enteric contrast. Status post colectomy with left lower quadrant ostomy in place. Seton at the perineum at 6:00. Peritoneum and retroperitoneum: Small volume of intraperitoneal fluid adjacent to the spleen on in the paracolic gutters. Chronic bilateral perinephric stranding. Equivocal peripancreatic edema. Abdominal wall: No parastomal hernia. Reproductive organs: Status post hysterectomy with several metallic surgical clips in the pelvis. Osseous structures: No suspicious osseous lesion. IMPRESSION: 1. Moderate to severe dilation of the intrahepatic and extrahepatic bile ducts with mild dilation of the pancreatic duct (double duct sign). Equivocal masslike fullness of the ampulla. Findings are concerning for obstructive process at the ampulla of Vater. Recommend GI consultation for consideration of MRCP versus ERCP for further characterization. Particularly if the patient has a history of inflammatory bowel disease, a stricture/primary sclerosing cholangitis may be considered. 2. Trace pericholecystic fluid with small volume of air within the gallbladder. Correlate with history of instrumentation. No definite fistula to bowel is demonstrated. Trace surrounding inflammation is nonspecific in the setting of ascites. Cannot exclude acute cholecystitis. 3. Equivocal peripancreatic edema. Correlate with lipase to exclude pancreatitis. 4. Polycystic kidneys with medullary nephrocalcinosis and nonobstructive calculi. 5. Small volume ascites and trace bilateral pleural effusions. MRCP 09/24/23: There is marked distention of the gallbladder today. Gallbladder measures about the 49 mm AP, 44 mm transverse and 88 mm superoinferiorly. A small focus of focal adenomyomatosis occurs at the lateral aspect of the gallbladder wall towards the fundus. A minimal amount of pericholecystic fluid may be present. This may relate to a small volume of ascites noted at the upper abdomen. Gallbladder wall is of normal thickness. Several millimetric calculi occur at the dependent gallbladder towards the fundus. There is a sessile polyp suspected at the anterior gallbladder wall, measuring about 7 mm in maximal dimension. The cholelithiasis and polyp or newly appreciated since prior examination of 2015. There is a moderate dilatation of the intra and extra hepatic biliary tree. This appears improved since 2016. Maximal caliber of common bile duct, at about mid edilma, estimated today at about 11 mm, compared to 13 mm previously. No discernible choledocholithiasis. There is a rather abrupt tapering of the distal common bile duct lumen, with a zone of ampullary region stenosis or stricturing estimated at roughly 8 to 9 mm in length. No discernible choledocholithiasis. This configuration is stable since 2016. The pancreas and pancreatic duct appeared unremarkable. Liver appeared free of focal pathology noted. Of normal overall size. Spleen appeared homogenous and of normal size. Numerous renal cysts occur, grossly simple. Adrenal glands unremarkable. There is some free intraperitoneal fluid seen about the spleen and to a lesser extent about the inferior margin of the liver. Minimal dependent subpleural region fluid occurs as well, seen at the posterior costophrenic angles. Bone marrow signal within the image volume unremarkable. IMPRESSION: Distention of the gallbladder, and intra and extra hepatic biliary tree. The latter is marginally improved since prior of 01/15/2016. 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 Please correlate with known information in this regard. No choledocholithiasis. Cholelithiasis noted. Small focus of focal adenomyomatosis occurs at the lateral wall of the gallbladder close to the fundus. No findings of acute cholecystitis. There may be minimal amount of pericholecystic fluid present but the gallbladder wall is normal thickness. The former more likely relates to the small volume of ascites noted at the upper abdomen. Correlation with clinical and biochemical context nonetheless suggested. There is a gallbladder polyp suspected at the anterior wall, sessile with a maximum dimension of 7 mm. Small volume ascites at the upper abdomen. Minimal pleural fluid occurs at the posterior costophrenic angles. Problem List Altered mental status Pancreatitis Fibromyalgia Crohns Open wound Nicotine dependence Crohn's disease w/ complication Nausea with vomiting Dehydration Acute injury of kidney PLAN Acute kidney injury Resolved, creatinine continues to decrease, 1.1 today which is within patient's baseline range. Lipase improved this morning down to 113 from 2249 Continue to trend Discontinue IV fluids. Tolerating full liquids, will advance to low fiber, low fat diet. Crohn's disease CT abdomen pelvis abnormal (see above for details) with moderate to severe dilation of the intrahepatic and extrahepatic bile ducts with mild dilation of the pancreatic duct and equivocal masslike fullness of the ampulla concerning for obstructive process such as stricture or primary sclerosing cholangitis. [facility] recommended MRCP- results showed Chronic gallbladder distention and chronic this intervention extrahepatic biliary tree. Suggestion of chronic ampullary region stricture. Cholelithiasis with a no choledocholithiasis. No acute cholecystitis. Minimal pericholecystic fluid. Small volume ascites in the upper abdomen. Disposition- Home when stable and tolerating PO intake, hopefully tomorrow.
--- OUTSIDE RECORDS SUMMARY | 2024-03-17 12:15 | XMS_ITS | Encounter Summary ---
Author Organization [facility] Address [address] [place] [address] Care Team Providers Care Mine Foreman Name Role Phone Chary Ordoñez Primary Care Provider [phone] Encounter Details Date Type Department Care Team (Late st Contact Info) Description 12/10/2023 Lab Requisition [facility] Pathology & Laboratory Medicine - [facility] [address] [place] [address] Outr Resulting Lab, Provider Social History Tobacco Use Types Packs/Day Years Used Date Smoking Tobacco: Every Day Cigarettes 0.3 47.4 Started: 10/10/1976 Smokeless Tobacco: Never Comments:5 cigarettes daily Alcohol Use Standard Drinks/Week Comments Yes 0 (1 standard drink = 0.6 oz pur e alcohol) rarely Interpersonal Safety Answer Date Record ed Physically Hurt Never 10/16/2019 Verbally Threaten Not on file 10/16/2019 Comments No Sex and Gender Information Value Date Recorded Sex Assigned at Not on file Legal Sex Female 17:52 EST Gender Identity Female 10/11/2020 8:15 EDT Sexual Orientation Not on file documented as of this encounter Functional Status * Are you deaf or do you have serious difficulty hearing? Answer Date of Assessment Author No 04/16/2018 12:00 EST Sa karlie Brantley RN * Are you blind or do you have serious difficulty seeing, even when wearing glasses? Answer Date of Assessment Author No 04/16/2018 12:00 Sa karlie Monique RN * Do you have serious difficulty walking or climbing stairs? (5 years old or older) Answer Date of Assessment Author No 04/16/2018 12:00 Sa karlie Monique RN * Do you have difficulty dressing or bathing? (5 years old or older) Answer Date of Assessment Author No 04/16/2018 12:00 Sa karlie Monique RN * Because of a physical, mental, or emotional condition, do you have difficulty doing errands alone such as visiting a doctor's office or shopping? (15 years old or older) Answer Date of Assessment Author No 04/16/2018 12:00 Sa karlie Monique RN documented as of this encounter Mental Status * Because of a physical, mental, or emotional condition, do you have serious difficulty concentrating, remembering, or making decisions? (5 years old or older) Answer Entry Date Author No 04/16/2018 12:00 Sa karlie Monique RN documented in this encounter Plan of Treatment Upcoming Encounters Date Type Department Care Team (Late st Contact Info) Description 04/07/2024 9:00 EST Office Visit [facility] Endocrinology - [address] [address] Vincenzo Rawls MD [address] [place] [address] [address] [place] [address] 08/22/2024 15:30 EDT Telemedicine [facility] Nephrology - [address] [address] Jose L Whitley MD [address] [place], [place] [address], [address] [place] [address] documented as of this encounter Procedures Procedure Name Priority Date/Time Associated Diagnosis Comments PTH INTACT Routine 12/10/2023 10:41 EDT documented in this encounter Results * (ABNORMAL) PTH INTACT (12/10/2023 10:41 EDT) Intact PTH 146(H) 19 - 88 pg/mL 12/10/2023 19:42 EDT [facility] Blood VENOUS BLOOD / Unknown 12/10/2023 10:41 EDT 12/10/2023 18:42 EDT us Provider Outr Resulting Lab CHEMISTRY & BLOOD GA S ORDERABLES Final Result Performing Organization Address City/State/[facility] Co de Phone Number [facility] [address] [place], [place] [id number] documented in this encounter Visit Diagnoses Not on filedocumented in this encounter Care Teams Mine Foreman Relationship Specialty Start Date End Date Chary Ordoñez [address] [place] [address] PCP - General Family Medicine - Primary Care 04/27/23 documented as of this encounter
--- OUTSIDE RECORDS SUMMARY | 2024-03-17 12:15 | XMS_ITS | Encounter Summary ---
Author Organization [facility] Address [address] [place] [address] Care Team Providers Care Golf Course Architect Name Role Phone Chary Ordoñez Primary Care Provider [phone] Encounter Details Date Type Department Care Team (Late st Contact Info) Description 11/17/2023 Abstract [facility] Nephrology - [address] [id number] Jose L Whitley MD [address] [facility], [address] [place] [address] Acute renal failure, unspecified acute renal failure type (HCC-CMS) (Primary Dx) Social History Tobacco Use Types Packs/Day Years [...] 04/16/2018 12:00 Sa karlie Monique RN * Are you blind or do [...] Info) Description 04/07/2024 9:00 EST Office Visit [facility] Endocrinology - [address] [id number] Vincenzo Rawls MD [address] [place] [address] [address] [place] [address] 08/22/2024 15:30 EDT Telemedicine [facility] Nephrology - [address] [id number] Jose L Whitley MD [address] [place] [address], [address] [place] [phone] documented as of this encounter Procedures Procedure Name Priority Date/Time Associated Diagnosis Comments NEPHROLOGY PROFILE (INCLUDES BUN, CREATININE, CALCULATED GFR, ELECTROLYTES, CALCIUM, PHOSPHORUS, ALBUMIN) Routine 11/12/2023 10:15 EDT Acute renal failure, unspecified acute renal failure type (HCC-CMS) GLUCOSE, SERUM Routine 11/12/2023 10:15 EDT documented in this encounter Results * GLUCOSE, SERUM (11/12/2023 10:15 EDT) Glucose, Serum, External 86 mg/dL [facility] Blood VENOUS BLOOD / Unknown 11/12/2023 10:15 EDT us Historical Provider CHEMISTRY & BLOOD GAS ORD ERABLES Final Result Performing Organization Address City/[facility]/ZIP Co de Phone Number [facility] * NEPHROLOGY PROFILE (INCLUDES BUN, CREATININE, CALCULATED GFR, ELECTROLYTES, CALCIUM, PHOSPHORUS, ALBUMIN) (11/12/2023 10:15 EDT) Phosphorus, External 3.6 [facility] Albumin, External 3.1 g/dL [facility] BUN, External 32 mg/dL [facility] Chloride, External 99 mmol/L [facility] Creatinine, External 1.85 mg/dL [facility] Potassium, External 3.7 mmol/L [facility] GFR, Calculated, External 27 [facility] Calculated Calcium, External [facility] Calcium, External 9.2 mg/dL [facility] Sodium, External 139 mmol/L [facility] CO2, External 32 mmol/L [facility] Blood VENOUS BLOOD / Unknown 11/12/2023 10:15 EDT us Jose L Whitley MD PACKAGES [employer] PROBE ORDERAB LES Final Result [facility] documented in this encounter Visit Diagnoses Diagnosis Acute renal failure, unspecified acute renal failure type (HCC-CMS)- Primary documented in this encounter Care Teams Golf Course Architect Relationship Specialty Start Date End Date LouChary [address] [place] [address] PCP - General Family Medicine - Primary Care 04/27/23 documented as of this encounter
--- OUTSIDE RECORDS SUMMARY | 2024-03-17 12:15 | XMS_ITS ---
Author Organization Unknown Address [address] [place] [address] [phone] Phone Care Team Providers Care Junior Database Administrator Name Role Phone DEVAUGHN Baeza Attending Unavailable Social History Type Status Start Date End Date Code Code Syst em Smoking History Current every day smoker [id number] SNOMED CT Sex Female Medications Medication Start Date End Date Route Frequency Dose Code Code System Medication Instructions Home Meds Cyclobenzaprine 10MG Oral Tablet 03/04/2017 09/21/2023 ORAL THREE TIMES A DAY 10 MILLIGRAMS 341539 RxNorm TAKE 10 MILLIGRAMS ORAL THREE TIMES A DAY Cymbalta 60MG Oral Capsule, Delayed Release 03/04/2017 09/21/2023 ORAL DAILY 60 MILLIGRAMS 737110 RxNorm TAKE 60 MILLIGRAMS ORAL DAILY Magnesium 500 MG Oral Tablet 03/04/2017 Unknown ORAL DAILY 500 MILLIGRAMS 451703 RxNorm TAKE 500 MILLIGRAMS ORAL DAILY Cyanocobalamin 1000MCG/1ML Injection Solution 03/21/2018 Unknown INTRA MUSCU LAR MONTHL Y 1 MILLILITERS 555361 RxNorm INJECT 1 MILLILITERS INTRAMUSCUL AR MONTHLY Estradiol 0.5MG Oral Tablet 03/21/2018 09/21/2023 ORAL DAILY 0.5 MILLIGRAMS 008330 RxNorm TAKE 0.5 MILLIGRAMS ORAL DAILY Metoprolol Succinate 25MG Oral Tablet, Extended Release 03/21/2018 Unknown ORAL DAILY 1 TABLET 541619 RxNorm LISA E 1 TABLET ORAL DAILY Sodium Bicarbonate 650MG Oral Tablet 03/21/2018 09/21/2023 ORAL THREE TIMES A DAY 1950 MILLIGRAMS 600023 RxNorm TAKE 1950 MILLIGRAMS ORAL THREE TIMES A DAY Potassium Chloride 20MEQ Oral Tablet, Extended Release 06/05/2018 09/21/2023 ORAL TWICE A DAY 20 MEQ 1616367 RxNorm TAKE 20 MEQ ORAL TWICE A DAY Magnesium 500 MG Oral Tablet 09/12/2018 09/21/2023 ORAL DAILY 1000 MG 115158 RxNorm TAKE 1 000 MG ORAL DAILY Vitamin D2 2000 IU Oral Tablet 09/12/2018 09/21/2023 ORAL WEEKLY 1 TABLET RxNorm TA KE 1 TABLET ORAL WEEKLY Acetaminophen 325MG Oral Tablet 09/25/2023 Unknown ORAL EVERY 6 HOURS 975 MILLIGRAMS 460751 RxNorm TAKE 975 MILLIGRAMS ORAL EVERY 6 HOURS Amitriptyline 10MG Oral Tablet 09/25/2023 Unknown ORAL EVERY EVENIN G 20 MILLIGRAMS 618066 RxNorm TAKE 20 MILLIGRAMS ORAL EVERY EVENING Cyclobenzaprine 10MG Oral Tablet 09/25/2023 Unknown ORAL THREE TIMES A DAY 5 MILLIGRAMS 778342 RxNorm TAKE 5 MILLIGRAMS ORAL THREE TIMES A DAY DULoxetine HCl 30MG Oral Capsule, Delayed Release 09/25/2023 Unknown ORAL DAILY 30 MILLIGRAMS 622003 RxNorm TAKE 30 MILLIGRAMS ORAL DAILY Estradiol 0.5MG Oral Tablet 09/25/2023 Unknown ORAL DAILY 0.5 TABLET [id number] RxNorm TAKE 0 .5 TABLET ORAL DAILY Fluticasone Propionate 0.05MG/1Actuatio n Nasal [place] 09/25/2023 Unknown NASAL TWICE A DAY 1 unit(s) 6409039 RxNorm SPRAY 1 EACH NASAL TWICE A DAY Folic Acid 1MG Oral Tablet 09/25/2023 Unknown ORAL DAILY 1 MILLIGRAMS 024348 RxNorm TAKE 1 MILLIGRAMS ORAL DAILY Loperamide 2 MG Oral Tablet 09/25/2023 Unknown ORAL NEEDED DAILY RxNorm TAKE 1-2 CAPSULE ORAL NEEDED DAILY Nicotine 21MG/24HR Transdermal Patch, Extended Release 09/25/2023 Unknown TRANS DERMA L DAILY 1 unit(s) 279826 RxNorm APPLY 1 EACH TRANSDERMAL DAILY Nicotine 4 MG Oromucosal Gum 09/25/2023 Unknown OROMU COSAL 4 MG 807567 RxNorm 4 MG OROMUCOSAL Ondansetron HCl 4MG Oral Tablet 09/25/2023 Unknown ORAL NEEDED DAILY 4 MILLIGRAMS 497518 RxNorm TAKE 4 MILLIGRAMS ORAL NEEDED DAILY Potassium Chloride 10MEQ Oral Capsule, Extended Release 09/25/2023 Unknown ORAL DAILY 20 MEQ 073733 RxNorm TAKE 20 MEQ ORAL DAILY Sodium Bicarbonate 650MG Oral Tablet 09/25/2023 Unknown ORAL 650 MILLIGRAMS 937938 RxNorm TAKE 650 MILLIGRAMS ORAL Vitamin D3 25MCG Oral Capsule, Liquid Filled 09/25/2023 Unknown ORAL DAILY 25 MCG RxNorm TAKE 25 MCG ORAL DAILY busPIRone 10MG Oral Tablet 09/25/2023 Unknown ORAL TWICE A DAY 10 MILLIGRAMS 053706 RxNorm TAKE 10 MILLIGRAMS ORAL TWICE A [...] Code System ACUTE INJURY OF KIDNEY active 6528709 [id number] SNOMED-CT DEHYDRATION active 65544824 SNOMED-C T NAUSEA WITH VOMITING active 56338211 SNOMED-CT CROHN'S DISEASE W/ COMPLICATION active 7209111897631055 SNOMED-CT NICOTINE DEPENDENCE active 26406718 SNOMED-CT OPEN WOUND active 506441510 SNOMED-CT CROHNS active 83280655 SNOMED-CT FIBROMYALGIA active 434869793 SNOMED- CT PANCREATITIS active 00943696 SNOMED- CT ALTERED MENTAL STATUS active 63251427 4 SNOMED-CT Allergies and Adverse Reactions Allergy Substance Reaction Severity Start Date Concern Status Code Code System NSAID CKD (SNOMED-CT: null) Active 84551941 SNOMED-CT CHANTIX SEIZURE (SNOMED-CT: null) Active 905782 RxNorm VARENICLINE SEIZURE (SNOMED-CT: null) Active 072654 RxNorm Plan of Treatment LAB DRAW 15MIN [...]
--- OUTSIDE RECORDS SUMMARY | 2024-03-17 12:15 | XMS_ITS | Encounter Summary ---
Author Organization [facility] Address [address] [place] [address] Care Team Providers Care System Consultant Name Role Phone Chary Ordoñez Primary Care Provider [phone] Reason for Visit * Reason Onset Date Comments Results 11/06/2023 Encounter Details Date Type Department Care Team (Late st Contact Info) Description 11/06/2023 Telephone [facility] Nephrology - S [address] [phone] Mikayla Keller RN Results Social History Tobacco Use Types Packs/Day Years [...] karlie Monique RN documented in this encounter Miscellaneous Notes * Telephone Encounter - Mikayla Keller RN - 11/06/2023 1634 EDT Left voice message for pt as per Dr Whitley Rising creatinine to 2.02 mg/dL. Repeat Nephrology Profile in 1 week - ordered. documented in this encounter Plan of Treatment Upcoming Encounters Date Type Department Care Team (Late st Contact Info) Description 04/07/2024 9:00 EST Office Visit [facility] Endocrinology - [facility] [address] [place] [address] Vincenzo Rawls MD [address] [address] 08/22/2024 15:30 EDT Telemedicine [facility] Nephrology - [address] [address] Jose L Whitley MD 1 [facility], [address] [place] [address] documented as of this encounter Visit Diagnoses Not on filedocumented in this encounter Care Teams System Consultant Relationship Specialty Start Date End Date Chary Ordoñez [address] [place] [phone] PCP - General Family Medicine - Primary Care 04/27/23 documented as of this encounter
--- OUTSIDE RECORDS SUMMARY | 2024-03-17 12:15 | XMS_ITS | Encounter Summary ---
Author Organization [facility] Address [address] [place] [address] Care Team Providers Care Industrial Relations Counselor Name Role Phone Chary Ordoñez Primary Care Provider [phone] Encounter Details Date Type Department Care Team (Late st Contact Info) Description 11/06/2023 Abstract [facility] Nephrology - S [address] [id number] Jose L Whitley MD 1 [facility], [address] [place] [address] Stage 3b chronic kidney disease (HCC-CMS) (Primary Dx) Social History Tobacco Use [...] Info) Description 04/07/2024 9:00 EST Office Visit [facility] Endocrinology - [address] [phone] Vincenzo Rawls MD [address] [place] [address] [address] [place] [address] 08/22/2024 15:30 EDT Telemedicine [facility] Nephrology - [address] [phone] Jose L Whitley MD [address] [place] [address], [address] [place] [phone] documented as of this encounter Procedures Procedure Name Priority Date/Time Associated Diagnosis Comments COMPREHENSIVE METABOLIC PANEL (CMP) Routine 11/05/2023 14:53 EDT Stage 3b chronic kidney disease (HCC-CMS) documented in this encounter Results * COMPREHENSIVE METABOLIC PANEL (CMP) (11/05/2023 14:53 EDT) GFR, Calculated, External 25 [facility] Glucose, Serum, External 129 mg/dL [facility] Albumin, External 3.1 g/dL [facility] Total Alkaline Phosphatase, External 310 [facility] ALT, External 24 [facility] AST, External 23 U/L [facility] BUN, External 25 mg/dL [facility] Calculated Calcium, External [facility] Calcium, External 9.1 mg/dL [facility] Chloride, External 98 mmol/L [facility] CO2, External 35 mmol/L [facility] Creatinine, External 2.02 mg/dL [facility] Fasting?, External [facility] Potassium, External 4.6 mmol/L [facility] Sodium, External 136 mmol/L [facility] Total Protein, External 7.4 [facility] Bilirubin, Total, External 0.2 [facility] Blood VENOUS BLOOD / Unknown 11/05/2023 14:53 EDT us Jose L Whitley MD CHEMISTRY & BLOOD GAS ORDERA BLES Final Result [facility] documented in this encounter Visit Diagnoses Diagnosis Stage 3b chronic kidney disease (HCC-CMS)- Primary documented in this encounter Care Teams Industrial Relations Counselor Relationship Specialty Start Date End Date Chary Ordoñez [address] [phone] PCP - General Family Medicine - Primary Care 04/27/23 documented as of this encounter
--- OUTSIDE RECORDS SUMMARY | 2024-03-17 12:15 | XMS_ITS | Encounter Summary ---
Author Organization [facility] Address [address] [place] [address] Care Team Providers Care Roller Painter Name Role Phone Chary Ordoñez Primary Care Provider [phone] Reason for Referral * Laboratory Services (Routine/Next Available) - New Request Specialty Diagnoses / Procedures Referred By [facility] t Referred To Contact Diagnoses Acute renal failure, unspecified acute renal failure type ([facility]) Procedures NEPHROLOGY PROFILE (INCLUDES BUN, CREATININE, CALCULATED GFR, ELECTROLYTES, CALCIUM, PHOSPHORUS, ALBUMIN) Jose L Whitley MD [address] [place] [phone] Phone: tel: fax: Referral ID Status Reason Start Date Expiration Date V isits Requested Visits Authorized [id number] New Request 11/06/2023 1 1 Reason for Visit * Reason Onset Date Comments Follow-up 11/06/2023 Encounter Details Date Type Department Care Team ([facility] st Contact Info) Description 11/06/2023 Telephone [facility] Nephrology - [address] [address] Jose L Whitley MD [address] [place] [phone] Follow-up Social History Tobacco Use Types Packs/Day Years [...] encounter Miscellaneous Notes * Telephone Encounter - Jose L Whitley MD - 11/06/2023 1614 EDT Rising creatinine to 2.02 mg/dL. Repeat Nephrology Profile in 1 week - ordered. documented in this encounter Plan of Treatment Upcoming Encounters Date Type Department Care Team (Late st Contact Info) Description 04/07/2024 9:00 EST Office Visit [facility] Endocrinology - [facility] [address] [place] [address] Vincenzo Rawls MD 62 [facility] [address] [place] [address] 08/22/2024 15:30 EDT Telemedicine [facility] Nephrology - [address] [phone] Jose L Whitley MD [address] [place], [place] [address], [address] [place] [phone] documented as of this encounter Results * NEPHROLOGY PROFILE (INCLUDES BUN, CREATININE, CALCULATED GFR, ELECTROLYTES, CALCIUM, PHOSPHORUS, ALBUMIN) (11/12/2023 10:15 EDT) Phosphorus, External 3.6 [facility] Albumin, External 3.1 g/dL [facility] BUN, External 32 mg/dL [facility] Chloride, External 99 mmol/L [facility] Creatinine, External 1.85 mg/dL [facility] Potassium, External 3.7 mmol/L [facility] GFR, Calculated, External 27 [facility] Calculated Calcium, External [facility] Calcium, External 9.2 mg/dL [facility] Sodium, External 139 mmol/L [facility] CO2, External 32 mmol/L [facility] Blood VENOUS BLOOD / Unknown 11/12/2023 10:15 EDT us Jose L Whitley MD PACKAGES & DNA PROBE ORDERAB LES Final Result [facility] documented in this encounter Visit Diagnoses Diagnosis Acute renal failure, unspecified acute renal failure type ([facility])- Primary documented in this encounter Care Teams Roller Painter Relationship Specialty Start Date End Date Markell Ordoñezil [address] [phone] PCP - General Family Medicine - Primary Care 04/27/23 documented as of this encounter
--- OUTSIDE RECORDS SUMMARY | 2024-03-17 12:15 | XMS_ITS | Encounter Summary ---
Author Organization [facility] Address [address] [place] [address] Care Team Providers Care Sandblast Or Shotblast Equipment Tender Name Role Phone Chary Ordoñez Primary Care Provider [phone] Encounter Details Date Type Department Care Team (Late st Contact Info) Description 01/06/2024 Lab Requisition [facility] Pathology & Laboratory Medicine - [facility] [address] [place] [address] Outr Resulting Lab, Provider Social History Tobacco [...] Info) Description 04/07/2024 9:00 EST Office Visit [facility] Endocrinology - [address] [address] Vincenzo Rawls MD [address] [place] [address] [address] [place] [address] 08/22/2024 15:30 EDT Telemedicine [facility] Nephrology - [address] [phone] Jose L Whitley MD 1 [facility] [address] [place] [address] documented as of this encounter Procedures Procedure Name Priority Date/Time Associated Diagnosis Comments PTH INTACT Routine 01/06/2024 10:44 EDT documented in this encounter Results * (ABNORMAL) PTH INTACT (01/06/2024 10:44 EDT) Intact PTH 160(H) 19 - 88 pg/mL 01/06/2024 18:57 EDT [facility] Blood VENOUS BLOOD / Unknown 01/06/2024 10:44 EDT 01/06/2024 17:16 EDT us Provider Outr Resulting Lab CHEMISTRY & BLOOD GA S ORDERABLES Final Result Performing Organization Address City/State/[facility] Co de Phone Number [facility] [address] [place], [place] [phone] documented in this encounter Visit Diagnoses Not on filedocumented in this encounter Care Teams Sandblast Or Shotblast Equipment Tender Relationship Specialty Start Date End Date Chary Ordoñez [address] [place] [address] PCP - General Family Medicine - Primary Care 04/27/23 documented as of this encounter
--- OUTSIDE RECORDS SUMMARY | 2024-03-17 12:15 | XMS_ITS | Clinical Summary ---
Author Organization [facility] Address [address] [place] [address] Care Team Providers Care Director Of Diagnostic Imaging Name Role Phone Chary Ordoñez Primary Care Provider [phone] Allergies Active Allergy Reactions Criticality Noted Date Comments Varenicline SEIZURES Nsaids (Non-Steroidal Anti-Inflammatory Drug) Other (See Comments) 04/30/2023 Pt has chronic kidney disease / renal tubular acidosis Medications potassium chloride (MICRO-K) 10 mEq capsule Take 2 Capsules by mouth daily. Active sodium bicarbonate 650 mg tablet Take 4 Tablets by mouth 3 times daily. 4 Active DULoxetine (CYMBALTA) 30 mg delayed release capsule Take 1 Capsule by mouth daily. Active ONDANSETRON HCL ORAL Take 4 mg by mouth 3 times daily. Active cyanocobalamin (VITAMIN B12) 1,000 mcg/mL injection Inject 1 mL into the muscle every 28 days. Active estradioL (ESTRACE) 0.5 mg tablet Take 0.5 Tablets by mouth daily. 1/2 tab daily Active FOLIC ACID ORAL Take 1 Tab by mouth daily. Active amitriptyline (ELAVIL) 10 mg tablet Take 2 Tablets by mouth at bedtime. 60 Tablet 5 2 Active loperamide (IMODIUM) 2 mg capsule TAKE 1-2 CAPSULES BY MOUTH ONCE DAILY NEEDED FOR TO CONTROL OSTOMY OUTPUT 2 Active metoprolol SUCCinate (TOPROL-XL) 25 mg tablet Take 0.5 Tablets by mouth daily. 2 Active cyclobenzaprine (FLEXERIL) 5 mg tablet TAKE ONE TABLET BY MOUTH THREE TIMES A DAY NEEDED 2 Active Magnesium Oxide 500 mg capsule Take 1 Capsule by mouth daily. 2 Active cholecalciferol, Vitamin D3, 25 mcg (1,000 unit) tablet Take 1 Tablet by mouth daily. Active tocopheryl acetate (VITAMIN E) 45 mg (100 unit) capsule Take 1 Capsule by mouth daily. Active acetaminophen (TYLENOL) 325 mg tablet Take 2 Tablets by mouth every 6 hours as needed for Pain. Please alternate taking with ibuprofen so you are taking one or the other every three hours. 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 Overview (09/01/2013): dx at [facility], after bowel surgery Nephrolithiasis Overview (09/01/2013): unknown type, required procedrues for removal; no recent stones Crohn's disease ([facility]) Overview (09/01/2013): s/p colectomy and small bowel resections with ileostomy Fibromyalgia Encounters Date Type Department Care Team Description 02/23/2024 Telephone [facility] Endocrinology - [address] [place] [address] Vincenzo Rawls MD Appointment Related 01/08/2024 Abstract [facility] Nephrology - [address] [place] [address] Jose L Whitley MD Stage 3b chronic kidney disease (HCC-CMS) (Primary Dx) 01/06/2024 Lab Requisition [facility] Pathology & Laboratory Medicine - [facility] [address] [place] [address] Outr Resulting Lab, Provider from Last 3 Months Immunizations Name Administration Dates Next Due Covid-19 mRNA Vaccine (MODER NA COVID-19) PF 0.5 ml IM (12 yrs+) 07/18/2020,06/20/2020 Surgical History Surgery Date Site/Laterality Comments HYSTERECTOMY RECTAL SURGERY anus removal 03/2018, debridement 10/2018 TOTAL COLECTOMY SMALL INTESTINE SURGERY COLON SURGERY ILEOSTOMY OR JEJUNOSTOMY 03/16/1983 - 03/15/1984 RECTAL SURGERY 10/11/2020 Placement of a draining Seton for fistula - Dr Ruiz RECTAL SURGERY 11/19/2022 fistula communicating to the vagina, seton placed, perianal abscess packed with iodoform - Dr Ruiz Medical History Medical History Date Comments Depression 04/29/2023 Depre ssion controlled well on Cymbalta Fibromyalgia Noted 11/11/22 Crohn's disease (HCC-CMS) Noted 11/11/22: s/p colectomy and small bowel resections with ileostomy Diarrhea with dehydration 2023 leading to recurrent episodes of ERNESTINA Hematuria cystoscopy, annette l CT, cytology unremarkable Tachycardia 04/29/2023 Metop rolol, no current symptoms Anomaly, cardiac tachycardia Heart murmur 04/29/2023 Diagn osed a few yrs ago per pt Anemia 05/16/2022 H/H = 13.4/41.2 Postprocedural non-healing wound small cavity anus History of general anesthesia No pasquale 11/11/22: Without any issues. Paroxysmal atrial tachycardi a with block (HCC-CMS) 04/29/2023 Metoprolol, no cu rrent symptoms Nephrolithiasis unknown type, re quired procedrues for removal; no recent stones Renal tubular acidosis dx at [facility], after bowel surgery Nephrocalcinosis on imaging sinc e 2000 Chronic kidney disease, stag e III (moderate) ([facility]) Seizures ([facility]) 04/29/2023 Du e to taking Chantix approx 6 years ago (~2018) Hepatitis 04/29/2023 age 4 0 Perineal fistula Edentulous H/O ileostomy Environmental allergies Osteoporosis Nausea & vomiting 11/19/2022 Vaginal fistula Wears dentures 04/29/2023 upper s Does not exercise 04/29/2023 no formal routine, pt can tolerate 1 flight of stairs Family History Medical History Relation Comments Pancreatic Cancer Mother Relation Status Comments Father Mother Colostomy Social History Tobacco Use Types Packs/Day Years Used Date Smoking Tobacco: Every Day Cigarettes 0.3 47.4 Started: 10/10/1976 Smokeless Tobacco: Never Tobacco Cessation:Ready to Q uit: Not Asked; Counseling Given: Not Answered Comments:5 cigarettes daily Alcohol Use Standard Drinks/Week [...] 8:15 EDT Sexual Orientation Not on file Obstetrics History Last Filed Vital Signs Vital Sign Reading Time Taken Comments Blood Pressure 132/92 05/22/2023 1050 EST Pulse 88 05/22/2023 1050 EST Temperature 36.6 ??C (97.9 ??F) 04/30/2023 1030 EST Respiratory Rate 16 04/30/2023 1130 EST Oxygen Saturation 98% 04/30/2023 1130 EST Inhaled Oxygen Concentration - - Weight 36.6 kg (80 lb 9.6 oz) 05/22/2023 1050 ES T Height 149.9 cm (4' 11) 05/22/2023 1050 EST Body Mass Index 16.28 05/22/2023 1050 EST Plan of Treatment Upcoming Encounters Date Type Department Care Team (Late st Contact Info) Description 04/07/2024 9:00 EST Office Visit [facility] Endocrinology - [address] [phone] Vincenzo Rawls MD [address] [facility] [address] [place] [address] 08/22/2024 15:30 EDT Telemedicine [facility] Nephrology - [address] [place], [place] [phone] Jose L Whitley MD 1 [facility], [address] [place] [phone] Health Maintenance Due Date Last Done Comments RSV Immunization ( o r 60+ Years) (1 - Risk 60-74 years 1-dose series) 2016 Fall Risk Screening 2021 COVID-19 Vaccine ( season) 11/15/202307/2020, 06/20/2020 Hepatitis C Screen Completed 03/27/2022 Procedures Procedure Name Priority Date/Time Associated Diagnosis Comments PTH INTACT Routine 01/06/2024 10:44 EDT COMPLETE BLOOD COUNT Routine 01/06/2024 10:44 EDT Stage 3b chronic kidney disease (HCC-CMS) NEPHROLOGY PROFILE (INCLUDES BUN, CREATININE, CALCULATED GFR, ELECTROLYTES, CALCIUM, PHOSPHORUS, ALBUMIN) Routine 01/06/2024 10:44 EDT Stage 3b chronic kidney disease (HCC-CMS) HEPATITIS C AB W REFLEX TO HCV RNA BY PCR Routine 03/27/2022 10:15 EST from Last 3 Months or Most Recently Relevant to Health Maintenance Results * NEPHROLOGY PROFILE (INCLUDES BUN, CREATININE, CALCULATED GFR, ELECTROLYTES, CALCIUM, PHOSPHORUS, ALBUMIN) (01/06/2024 10:44 EDT) Phosphorus, External 3.2 [facility] Albumin, External 3.0 g/dL [facility] BUN, External 32 mg/dL [facility] Chloride, External 105 mmol/L [facility] Creatinine, External 1.64 mg/dL [facility] Potassium, External 5.1 mmol/L [facility] GFR, Calculated, External 31 [facility] Calculated Calcium, External [facility] Calcium, External 8.7 mg/dL [facility] Sodium, External 141 mmol/L [facility] CO2, External 29 mmol/L [facility] Blood VENOUS BLOOD / Unknown 01/06/2024 10:44 EDT us Jose L Whitley MD CHEMISTRY & BLOOD GAS ORDERA BLES Final Result [facility] * (ABNORMAL) PTH INTACT (01/06/2024 10:44 EDT) Intact PTH 160(H) 19 - 88 pg/mL 01/06/2024 18:57 EDT [facility] Blood VENOUS BLOOD / Unknown 01/06/2024 10:44 EDT 01/06/2024 17:16 EDT us Provider Outr Resulting Lab CHEMISTRY & BLOOD GA S ORDERABLES Final Result [facility] [address] [place] [id number] * COMPLETE BLOOD COUNT (01/06/2024 10:44 EDT) HCT, External 36 [facility] MCH, External 32.7 g/dL [facility] MCV, External 102 [facility] MCHC, External 32.0 g/dL [facility] Hemoglobin, External 11.4 % [facility] WBC, External 3.94 [facility] RBC, External 3.49 [facility] PLT, External 239 [facility] RDW-CV, External [facility] Blood VENOUS BLOOD / Unknown 01/06/2024 10:44 EDT Jose L Whitley MD HEMATOLOGY & PF4 ORDERABLES Final Result [facility] * HEPATITIS C AB W REFLEX TO HCV RNA BY PCR (03/27/2022 10:15 EST) Hep C Antibody Negative Negative 03/28/2022 9:54 EST [facility] Blood VENOUS BLOOD / Unknown 03/27/2022 10:15 EST 03/27/2022 21:43 EST us Provider Outr Resulting Lab CHEMISTRY & BLOOD GA S ORDERABLES Final Result [facility] [address] [place] [address] from Last 3 Months or Most Recently Relevant to Health Maintenance Insurance MEDICAID [place] [facility] MEDICARE MEDICAID [place] Advance Directives For more information, please contact: [phone] * Full Code (Latest Code Status on File) Date Activated Date Inactivated Comments 04/30/2023 9:04 04/30/2023 14:04 Question Answer Comments When the patient has NO PULSE: Full Code / CPR Who Made the Decision? Default/Not Discussed * Full Code Date Activated Date Inactivated Comments 11/19/2022 10:34 11/19/2022 17:10 Question Answer Comments When the patient has NO PULSE: Full Code / CPR Who Made the Decision? Default/Not Discussed * Full Code Date Activated Date Inactivated Comments 10/11/2020 9:00 10/11/2020 14:36 Question Answer Comments Reason for decision includes: Full code consistent with overall plan of care Who participated in the discussion? Not Discusse d * Full Code Date Activated Date Inactivated Comments 04/15/2018 15:48 04/16/2018 14:49 Question Answer Comments Reason for decision includes: Full code consistent with overall plan of care Who participated in the discussion? Not Discusse d * Full Code Date Activated Date Inactivated Comments 04/15/2018 9:52 04/15/2018 15:47 Question Answer Comments Reason for decision includes: Full code consistent with overall plan of care Who participated in the discussion? Not Discusse d Care Teams Director Of Diagnostic Imaging Relationship Specialty Start Date End Date Chary Ordoñez [address] [place] [phone] PCP - General Family Medicine - Primary Care 04/27/23
--- OUTSIDE RECORDS SUMMARY | 2024-03-17 12:15 | XMS_ITS | Referral Summary ---
Author Organization [facility] Address [address] [place] [address] Care Team Providers Care Recruiting Team Lead Name Role Phone Chary Ordoñez Primary Care Provider [phone] Encounters Date Type Department Care Team Description 02/23/2024 Telephone [facility] Endocrinology - [address] [phone] Vincenzo Rawls MD Appointment Related 01/08/2024 Abstract [facility] Nephrology - [address] [address] Jose L Whitley MD Stage 3b chronic kidney disease ([facility]-CMS) (Primary Dx) 01/06/2024 Lab Requisition [facility] Pathology & Laboratory Medicine - [place] [address] [place] [address] Outr Resulting Lab, Provider from Last 3 Months Allergies Active Allergy Reactions Criticality Noted Date [...] (09/26/2020): Added automatically from request for surgery [id number] Chronic kidney disease, stage III (moderate) ( C-CMS) Tachycardia Overview (09/01/2013): rx with b-charu, asymptomatic Hematuria Overview (09/01/2013): cystoscopy, renal CT, cytology unremarkable Diarrhea with dehydration Overview (09/01/2013): leading to recurrent episodes of ERNESTINA 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) Overview (09/01/2013): s/p colectomy and small bowel resections with ileostomy Fibromyalgia Immunizations Name Administration Dates Next Due Covid-19 mRNA Vaccine (MODER NA COVID-19) PF 0.5 ml IM (12 yrs+) 07/18/2020,06/20/2020 Social History Tobacco Use Types Packs/Day Years [...] 8:15 EDT Sexual Orientation Not on file Last Filed Vital Signs Vital Sign Reading [...] Body Mass Index 16.28 05/22/2023 1050 EST Functional Status * Are you deaf or [...] No 04/16/2018 12:00 Sa karlie Monique RN Mental Status * Because of a physical, mental, or emotional condition, do you have serious difficulty concentrating, remembering, or making decisions? (5 years old or older) Answer Entry Date Author No 04/16/2018 12:00 Sa karlie Monique RN Plan of Treatment Upcoming Encounters Date Type Department Care Team (Late st Contact Info) Description 04/07/2024 9:00 EST Office Visit [facility] Endocrinology - [facility] [address] [place], [place] [phone] Vincenzo Rawls MD [address] [place] [address] [address] [place] [address] 08/22/2024 15:30 EDT Telemedicine [facility] Nephrology - [address] [phone] Jose L Whitley MD [address] [place] [address], [address] [place] [phone] Procedures Procedure Name Priority Date/Time Associated Diagnosis [...] ALBUMIN) (01/06/2024 10:44 EDT) Phosphorus, External 3.2 [facility] Albumin, External 3.0 g/dL [facility] BUN, External 32 mg/dL [facility] Chloride, External 105 mmol/L [facility] Creatinine, External 1.64 mg/dL [facility] Potassium, External 5.1 mmol/L [facility] GFR, Calculated, External 31 [facility] Calculated Calcium, External [facility] Calcium, External 8.7 mg/dL [facility] Sodium, External 141 mmol/L [facility] CO2, External 29 mmol/L [facility] Blood VENOUS BLOOD / Unknown 01/06/2024 10:44 EDT Jose L Whitley MD CHEMISTRY & BLOOD GAS ORDERA BLES Final Result [facility] * (ABNORMAL) PTH INTACT (01/06/2024 10:44 EDT) Intact PTH 160(H) 19 - 88 pg/mL 01/06/2024 18:57 EDT [facility] Blood VENOUS BLOOD / Unknown 01/06/2024 10:44 EDT 01/06/2024 17:16 EDT us Provider Outr Resulting Lab CHEMISTRY & BLOOD GA S ORDERABLES Final Result Performing Organization Address City/[facility]/ZIP Co de Phone Number [facility] [address] [place] [address] * COMPLETE BLOOD COUNT (01/06/2024 10:44 EDT) HCT, External 36 [facility] MCH, External 32.7 g/dL [facility] MCV, External 102 [facility] MCHC, External 32.0 g/dL [facility] Hemoglobin, External 11.4 % [facility] WBC, External 3.94 [facility] RBC, External 3.49 [facility] PLT, External 239 [facility] RDW-CV, External [facility] Blood VENOUS BLOOD / Unknown 01/06/2024 10:44 EDT Jose L Whitley MD HEMATOLOGY & PF4 ORDERABLES Final Result Performing Organization Address City/[facility]/ZIP Co de Phone Number [facility] * HEPATITIS C AB W REFLEX TO HCV RNA BY PCR (03/27/2022 10:15 EST) Hep C Antibody Negative Negative 03/28/2022 9:54 EST [facility] Blood VENOUS BLOOD / Unknown 03/27/2022 10:15 EST 03/27/2022 21:43 EST Provider Outr Resulting Lab CHEMISTRY & BLOOD GA S ORDERABLES Final Result Performing Organization Address City/[facility]/ZIP Co de Phone Number [facility] [address] [place] [address] from Last 3 Months or Most Recently Relevant to Health Maintenance Insurance MEDICAID [place] [facility] MEDICARE MEDICAID [place] Advance Directives For more information, please contact: [phone] * Full Code (Latest Code Status on [...] the discussion? Not Discusse d Care Teams Recruiting Team Lead Relationship Specialty Start Date End Date Chary Ordoñez [address] [place] [phone] PCP - General Family Medicine - Primary Care 04/27/23
--- OUTSIDE RECORDS SUMMARY | 2024-03-17 12:15 | XMS_ITS | Encounter Summary ---
Author Organization [facility] Address [address] [place] [address] Care Team Providers Care Customer Experience Strategist Name Role Phone Chary Ordoñez Primary Care Provider [phone] Reason for Visit * Reason Onset Date Comments Coordination Of Care 11/12/2023 Encounter Details Date Type Department Care Team (Late st Contact Info) Description 11/12/2023 Telephone [facility] Nephrology - [address] [address] Jose L Whitley MD 1 [facility], [address] [place] [address] Coordination Of Care Social History Tobacco Use Types Packs/Day Years [...] encounter Miscellaneous Notes * Telephone Encounter - Miranda Mata - 11/12/2023 1009 EDT A user error has taken place: encounter opened in error, closed for administrative reasons. documented in this encounter Plan of Treatment Upcoming Encounters Date Type Department Care Team (Late st Contact Info) Description 04/07/2024 9:00 EST Office Visit [facility] Endocrinology - [facility] [address] [place] [address] Vincenzo Rawls MD [address] [place] [phone] 08/22/2024 15:30 EDT Telemedicine [facility] Nephrology - [facility] [address] [place] [address] Jose L [facility] MD [facility] [address] [place] [address] documented as of this encounter Visit Diagnoses Not on filedocumented in this encounter Care Teams Customer Experience Strategist Relationship Specialty Start Date End Date Chary Ordoñez [address] [place] [phone] PCP - General Family Medicine - Primary Care 04/27/23 documented as of this encounter
--- OUTSIDE RECORDS SUMMARY | 2024-03-17 12:15 | XMS_ITS | Encounter Summary ---
Author Organization [facility] Address [address] [place] [address] Care Team Providers Care Autism Specialist Name Role Phone Chary Ordoñez Primary Care Provider [phone] Encounter Details Date Type Department Care Team (Late st Contact Info) Description 12/11/2023 Abstract [facility] Nephrology - [address] [phone] Jose L Whitley MD 1 [facility], [address] [place] [address] Stage 3b chronic kidney disease [...] Info) Description 04/07/2024 9:00 EST Office Visit [facility] Endocrinology - [address] [phone] Vincenzo Rawls MD [address] [place] [address] [address] [place] [address] 08/22/2024 15:30 EDT Telemedicine [facility] Nephrology - [address] [phone] Jose L Whitley MD [address] [place] [address], [address] [place] [phone] documented as of this encounter Procedures Procedure Name Priority Date/Time Associated Diagnosis Comments NEPHROLOGY PROFILE (INCLUDES BUN, CREATININE, CALCULATED GFR, ELECTROLYTES, CALCIUM, PHOSPHORUS, ALBUMIN) Routine 12/10/2023 10:41 EDT Stage 3b chronic kidney disease ([facility]) COMPLETE BLOOD COUNT Routine 12/10/2023 10:41 EDT Stage 3b chronic kidney disease ([facility]) documented in this encounter Results * COMPLETE BLOOD COUNT (12/10/2023 10:41 EDT) HCT, External 40 [facility] MCH, External 31.9 g/dL [facility] MCV, External 102 [facility] MCHC, External 31.2 g/dL [facility] Hemoglobin, External 12.5 % [facility] WBC, External 7.48 [facility] RBC, External 3.92 [facility] PLT, External 326 [facility] RDW-CV, External [facility] Blood VENOUS BLOOD / Unknown 12/10/2023 10:41 EDT us Jose L Whitley MD HEMATOLOGY & PF4 ORDERABLES Final Result [facility] * NEPHROLOGY PROFILE (INCLUDES BUN, CREATININE, CALCULATED GFR, ELECTROLYTES, CALCIUM, PHOSPHORUS, ALBUMIN) (12/10/2023 10:41 EDT) Phosphorus, External 3.3 [facility] Albumin, External 3.3 g/dL [facility] BUN, External 19 mg/dL [facility] Chloride, External 100 mmol/L [facility] Creatinine, External 1.67 mg/dL [facility] Potassium, External 3.9 mmol/L [facility] GFR, Calculated, External 31 [facility] Calculated Calcium, External [facility] Calcium, External 9.3 mg/dL [facility] Sodium, External 140 mmol/L [facility] CO2, External 37 mmol/L [facility] Blood VENOUS BLOOD / Unknown 12/10/2023 10:41 EDT us Jose L Whitley MD PACKAGES & DNA PROBE ORDERAB LES Final Result [facility] documented in this encounter Visit Diagnoses Diagnosis Stage 3b chronic kidney disease (HCC-CMS)- Primary documented in this encounter Care Teams Autism Specialist Relationship Specialty Start Date End Date Chary Ordoñez [address] [place] [phone] PCP - General Family Medicine - Primary Care 04/27/23 documented as of this encounter
--- OUTSIDE RECORDS SUMMARY | 2024-03-17 12:15 | XMS_ITS ---
Author Organization Unknown Address [address] [place] [phone] Phone Care Team Providers Care Shipping And Receiving Operator Name Role Phone LIVAN Parker Attending Unavailable MAYCO Urias Primary Unavailable Social History Type Status Start Date End Date Code Code Syst em Smoking History Current every day smoker [id number] SNOMED CT Sex Female Medications Medication Start Date End Date Route Frequency Dose Code Code System Medication Instructions Home Meds Cyclobenzaprine 10MG Oral Tablet 03/04/2017 09/21/2023 ORAL THREE TIMES A DAY 10 MILLIGRAMS 611788 RxNorm TAKE 10 MILLIGRAMS ORAL THREE TIMES A DAY Cymbalta 60MG Oral Capsule, Delayed Release 03/04/2017 09/21/2023 ORAL DAILY 60 MILLIGRAMS 398186 RxNorm TAKE 60 MILLIGRAMS ORAL DAILY Magnesium 500 MG Oral Tablet 03/04/2017 Unknown ORAL DAILY 500 MILLIGRAMS 132849 RxNorm TAKE 500 MILLIGRAMS ORAL DAILY Cyanocobalamin 1000MCG/1ML Injection Solution 03/21/2018 Unknown INTRA MUSCU LAR MONTHL Y 1 MILLILITERS 079835 RxNorm INJECT 1 MILLILITERS INTRAMUSCUL AR MONTHLY Estradiol 0.5MG Oral Tablet 03/21/2018 09/21/2023 ORAL DAILY 0.5 MILLIGRAMS 142697 RxNorm TAKE 0.5 MILLIGRAMS ORAL DAILY Metoprolol Succinate 25MG Oral Tablet, Extended Release 03/21/2018 Unknown ORAL DAILY 1 TABLET 431902 RxNorm LISA E 1 TABLET ORAL DAILY Sodium Bicarbonate 650MG Oral Tablet 03/21/2018 09/21/2023 ORAL THREE TIMES A DAY 1950 MILLIGRAMS 855516 RxNorm TAKE 1950 MILLIGRAMS ORAL THREE TIMES A DAY Potassium Chloride 20MEQ Oral Tablet, Extended Release 06/05/2018 09/21/2023 ORAL TWICE A DAY 20 MEQ 5392828 RxNorm TAKE 20 MEQ ORAL TWICE A DAY Magnesium 500 MG Oral Tablet 09/12/2018 09/21/2023 ORAL DAILY 1000 MG 401422 RxNorm TAKE 1 000 MG ORAL DAILY Vitamin D2 2000 IU Oral Tablet 09/12/2018 09/21/2023 ORAL WEEKLY 1 TABLET RxNorm TA KE 1 TABLET ORAL WEEKLY Acetaminophen 325MG Oral Tablet 09/25/2023 Unknown ORAL EVERY 6 HOURS 975 MILLIGRAMS 014168 RxNorm TAKE 975 MILLIGRAMS ORAL EVERY 6 HOURS Amitriptyline 10MG Oral Tablet 09/25/2023 Unknown ORAL EVERY EVENIN G 20 MILLIGRAMS 839366 RxNorm TAKE 20 MILLIGRAMS ORAL EVERY EVENING Cyclobenzaprine 10MG Oral Tablet 09/25/2023 Unknown ORAL THREE TIMES A DAY 5 MILLIGRAMS 475849 RxNorm TAKE 5 MILLIGRAMS ORAL THREE TIMES A DAY DULoxetine HCl 30MG Oral Capsule, Delayed Release 09/25/2023 Unknown ORAL DAILY 30 MILLIGRAMS 734848 RxNorm TAKE 30 MILLIGRAMS ORAL DAILY Estradiol 0.5MG Oral Tablet 09/25/2023 Unknown ORAL DAILY 0.5 TABLET [id number] RxNorm TAKE 0 .5 TABLET ORAL DAILY Fluticasone Propionate 0.05MG/1Actuatio n Nasal [place] 09/25/2023 Unknown NASAL TWICE A DAY 1 unit(s) 3046300 RxNorm SPRAY 1 EACH NASAL TWICE A DAY Folic Acid 1MG Oral Tablet 09/25/2023 Unknown ORAL DAILY 1 MILLIGRAMS 697014 RxNorm TAKE 1 MILLIGRAMS ORAL DAILY Loperamide 2 MG Oral Tablet 09/25/2023 Unknown ORAL NEEDED DAILY RxNorm TAKE 1-2 CAPSULE ORAL NEEDED DAILY Nicotine 21MG/24HR Transdermal Patch, Extended Release 09/25/2023 Unknown TRANS DERMA L DAILY 1 unit(s) 207617 RxNorm APPLY 1 EACH TRANSDERMAL DAILY Nicotine 4 MG Oromucosal Gum 09/25/2023 Unknown OROMU COSAL 4 MG 200426 RxNorm 4 MG OROMUCOSAL Ondansetron HCl 4MG Oral Tablet 09/25/2023 Unknown ORAL NEEDED DAILY 4 MILLIGRAMS 622553 RxNorm TAKE 4 MILLIGRAMS ORAL NEEDED DAILY Potassium Chloride 10MEQ Oral Capsule, Extended Release 09/25/2023 Unknown ORAL DAILY 20 MEQ 851668 RxNorm TAKE 20 MEQ ORAL DAILY Sodium Bicarbonate 650MG Oral Tablet 09/25/2023 Unknown ORAL 650 MILLIGRAMS 629221 RxNorm TAKE 650 MILLIGRAMS ORAL Vitamin D3 25MCG Oral Capsule, Liquid Filled 09/25/2023 Unknown ORAL DAILY 25 MCG RxNorm TAKE 25 MCG ORAL DAILY busPIRone 10MG Oral Tablet 09/25/2023 Unknown ORAL TWICE A DAY 10 MILLIGRAMS 578825 RxNorm TAKE 10 MILLIGRAMS ORAL TWICE A [...] Code System ACUTE INJURY OF KIDNEY active 6141025 [id number] SNOMED-CT DEHYDRATION active 85961424 SNOMED-C T NAUSEA WITH VOMITING active 90922589 SNOMED-CT CROHN'S DISEASE W/ COMPLICATION active 5344860984494178 SNOMED-CT NICOTINE DEPENDENCE active 06952491 SNOMED-CT OPEN WOUND active 480716684 SNOMED-CT CROHNS active 98757691 SNOMED-CT FIBROMYALGIA active 761075913 SNOMED- CT PANCREATITIS active 69259861 SNOMED- CT ALTERED MENTAL STATUS active 44700000 4 SNOMED-CT Allergies and Adverse Reactions Allergy Substance Reaction Severity Start Date Concern Status Code Code System NSAID CKD (SNOMED-CT: null) Active 11353693 SNOMED-CT CHANTIX SEIZURE (SNOMED-CT: null) Active 070754 RxNorm VARENICLINE SEIZURE (SNOMED-CT: null) Active 842073 RxNorm Plan of Treatment LAB DRAW 15MIN [...] Diagnosis Start Date Code Code Sys tem 08/05/2023 [id number] SNOMED-CT Personal Care Team Section Performer Name Performer Role Active Date Inactive Da te
--- OUTSIDE RECORDS SUMMARY | 2024-03-17 12:15 | XMS_ITS | Encounter Summary ---
Author Organization [facility] Address [address] [place] [address] Care Team Providers Care Exit Booth Agent Name Role Phone Chary Ordoñez Primary Care Provider [phone] Encounter Details Date Type Department Care Team (Late st Contact Info) Description 01/08/2024 Abstract [facility] Nephrology - S [address] [id number] Jose L Whitley MD 1 [facility], Level 2 [place] [address] Stage 3b chronic kidney disease [...] Info) Description 04/07/2024 9:00 EST Office Visit [facility] Endocrinology - [address] [phone] Vincenzo Rawls MD [address] [place] [address] [address] [place] [address] 08/22/2024 15:30 EDT Telemedicine [facility] Nephrology - [address] 2164[address] Jose L Whitley MD [address] [place] [address], [address] [place] [phone] documented as of this encounter Procedures Procedure Name Priority Date/Time Associated Diagnosis Comments NEPHROLOGY PROFILE (INCLUDES BUN, CREATININE, CALCULATED GFR, ELECTROLYTES, CALCIUM, PHOSPHORUS, ALBUMIN) Routine 01/06/2024 10:44 EDT Stage 3b chronic kidney disease ([facility]) COMPLETE BLOOD COUNT Routine 01/06/2024 10:44 EDT Stage 3b chronic kidney disease ([facility]) documented in this encounter Results * COMPLETE BLOOD COUNT (01/06/2024 10:44 EDT) HCT, External 36 [facility] MCH, External 32.7 g/dL [facility] MCV, External 102 [facility] MCHC, External 32.0 g/dL [facility] Hemoglobin, External 11.4 % [facility] WBC, External 3.94 [facility] RBC, External 3.49 [facility] PLT, External 239 [facility] RDW-CV, External [facility] Blood VENOUS BLOOD / Unknown 01/06/2024 10:44 EDT us Jose L Whitley MD HEMATOLOGY & PF4 ORDERABLES Final Result [facility] * NEPHROLOGY PROFILE (INCLUDES BUN, CREATININE, CALCULATED GFR, ELECTROLYTES, CALCIUM, PHOSPHORUS, ALBUMIN) (01/06/2024 10:44 EDT) Phosphorus, External 3.2 [facility] Albumin, External 3.0 g/dL [facility] BUN, External 32 mg/dL [facility] Chloride, External 105 mmol/L [facility] Creatinine, External 1.64 mg/dL [facility] Potassium, External 5.1 mmol/L [facility] GFR, Calculated, External 31 [facility] Calculated Calcium, External [facility] Calcium, External 8.7 mg/dL [facility] Sodium, External 141 mmol/L [facility] CO2, External 29 mmol/L [facility] Blood VENOUS BLOOD / Unknown 01/06/2024 10:44 EDT Jose L Whitley MD CHEMISTRY & BLOOD GAS ORDERA BLES Final Result [facility] documented in this encounter Visit Diagnoses Diagnosis Stage 3b chronic kidney disease (HCC-CMS)- Primary documented in this encounter Care Teams Exit Booth Agent Relationship Specialty Start Date End Date Chary Ordoñez [address] [place] [phone] PCP - General Family Medicine - Primary Care 04/27/23 documented as of this encounter
--- OUTSIDE RECORDS SUMMARY | 2024-03-17 12:15 | XMS_ITS | Encounter Summary ---
Author Organization [facility] Address [address] [place] [address] Care Team Providers Care Heating Engineer Name Role Phone Chary Ordoñez Primary Care Provider [phone] Reason for Visit * Reason Onset Date Comments Appointment Related 02/23/2024 Encounter Details Date Type Department Care Team (Late st Contact Info) Description 02/23/2024 Telephone [facility] Endocrinology - [facility] [address] [place] [address] Vincenzo Rawls MD 62 [facility] [address] [place] [phone] Appointment Related Social History Tobacco Use Types Packs/Day Years [...] encounter Miscellaneous Notes * Telephone Encounter - Yelitza Banerjee - 02/23/2024 0901 EST Left voicemail offering patient sooner appointment on with Dr. Rawls @ 10:40 AM [facility], if patient accepts appointment please schedule. If patient cannot accept sooner appointment, or if it is no longer available in [facility] please inform them they will remain on the waitlist. documented in this encounter Plan of Treatment Upcoming Encounters Date Type Department Care Team (Late st Contact Info) Description 04/07/2024 9:00 EST Office Visit [facility] Endocrinology - [facility] [address] [place] [address] Vincenzo Rawls MD 62 [facility] [address] [place] [address] 08/22/2024 15:30 EDT Telemedicine [facility] Nephrology - [address] [place] [address] [place], [place] [address] Jose L Whitley MD 1 [facility], Level [address] [place] [phone] documented as of this encounter Visit Diagnoses Not on filedocumented in this encounter Care Teams Heating Engineer Relationship Specialty Start Date End Date Chary Ordoñez [address] [place] [phone] PCP - General Family Medicine - Primary Care 04/27/23 documented as of this encounter
--- OUTSIDE RECORDS SUMMARY | 2024-03-17 12:15 | XMS_ITS | Encounter Summary ---
Author Organization [facility] Address [address] [place] [address] Care Team Providers Care Dynamometer Tester Engine Name Role Phone Chary Ordoñez Primary Care Provider [phone] Encounter Details Date Type Department Care Team (Late st Contact Info) Description 12/10/[address] [facility] Pathology & Laboratory Medicine - [facility] [address] [place] [address] Outr Resulting Lab, Provider Social History Tobacco [...] Info) Description 04/07/2024 9:[address] [facility] Endocrinology - [address] [address] Vincenzo Rawls MD [address] [place] [address] [address] [place] [address] 08/22/2024 15:[address] [facility] Nephrology - [address] [address] Jose L Whitley MD 1 [facility], [address] [place] [address] documented as of this encounter Visit Diagnoses Not on filedocumented in this encounter Care Teams Dynamometer Tester Engine Relationship Specialty Start Date End Date Chary Ordoñez 4 [facility] [place] [phone] PCP - General Family Medicine - Primary Care 04/27/23 documented as of this encounter
--- OUTSIDE RECORDS SUMMARY | 2024-03-17 12:16 | XMS_ITS | Encounter Summary ---
Author Organization [facility] Address [address] [place] [address] Care Team Providers Care Dressmaking Teacher Name Role Phone Chary Ordoñez Primary Care Provider [phone] Reason for Referral * Laboratory Services (Routine/Next Available) - New Request Specialty Diagnoses / Procedures [facility] Referred To Contact Diagnoses Stage 3b chronic kidney disease ([facility]) Procedures NEPHROLOGY PROFILE (INCLUDES BUN, CREATININE, CALCULATED GFR, ELECTROLYTES, CALCIUM, PHOSPHORUS, ALBUMIN) Jose L Whitley MD [address] [place] [address], [address] [place] [address] Phone: tel: fax: Referral ID Status Reason Start Date Expiration Date V isits Requested Visits Authorized [id number] New Request 10/23/2023 1 1 Reason for Visit * Reason Onset Date Comments Results 10/23/2023 Encounter Details Date Type Department Care Team ([facility] Contact Info) Description 10/23/2023 Telephone [facility] Nephrology - [address] [address] Mikayla Keller RN Results Social History Tobacco [...] Telephone Encounter - Mikayla Keller RN - 10/23/2023 1551 EDT Spoke with pt as per Dr Whitley instructions History of fluctuating creatinine. It was 1.92 on 10/22/2023; was 1.81 in July 2023 and 1.59 in May 2023. To repeat Nephrology Profile in 2 weeks. This has been ordered. Orders faxed to [facility]. documented in this encounter Plan of Treatment Upcoming Encounters Date Type Department Care Team (Late st Contact Info) Description 04/07/2024 9:00 EST Office Visit [facility] Endocrinology - [facility] [address] [place] [address] Vincenzo Rawls MD 62 [facility] [address] [place] [phone] 08/22/2024 15:30 EDT Telemedicine [facility] Nephrology - [facility] [place] [address] [place], [place] [address] Jose L Whitley MD 1 [facility], [address] [place] [phone] documented as of this encounter Results * NEPHROLOGY PROFILE (INCLUDES BUN, CREATININE, CALCULATED GFR, ELECTROLYTES, CALCIUM, PHOSPHORUS, ALBUMIN) (12/10/2023 10:41 EDT) Phosphorus, External 3.3 [facility] Albumin, External 3.3 g/dL [facility] BUN, External 19 mg/dL [facility] Chloride, External 100 mmol/L [facility] Creatinine, External 1.67 mg/dL [facility] Potassium, External 3.9 mmol/L [facility] GFR, Calculated, External 31 [facility] Calculated Calcium, External [facility] Calcium, External 9.3 mg/dL [facility] Sodium, External 140 mmol/L [facility] CO2, External 37 mmol/L [facility] Blood VENOUS BLOOD / Unknown 12/10/2023 10:41 EDT us Jose L Whitley MD PACKAGES & DNA PROBE ORDERAB LES Final Result [facility] documented in this encounter Visit Diagnoses Diagnosis Stage 3b chronic kidney disease (HCC-CMS)- Primary documented in this encounter Care Teams Dressmaking Teacher Relationship Specialty Start Date End Date Chary Ordoñez [address] [facility] [place] [phone] PCP - General Family Medicine - Primary Care 04/27/23 documented as of this encounter
--- OUTSIDE RECORDS SUMMARY | 2024-03-17 12:16 | XMS_ITS | Encounter Summary ---
Author Organization [facility] Address [address] [place] [address] Care Team Providers Care Pharmacy Manager Name Role Phone Chary Ordoñez Primary Care Provider [phone] Encounter Details Date Type Department Care Team (Late st Contact Info) Description 06/04/2023 Abstract [facility] Nephrology - [address] [phone] Jose L Whitley MD [address] [facility] [place], [address] [place] [address] Acute renal failure, unspecified acute [...] Info) Description 04/07/2024 9:00 EST Office Visit [facility] Endocrinology - [address] [phone] Vincenzo Rawls MD [address] [place] [address] [address] [place] [address] 08/22/2024 15:30 EDT Telemedicine [facility] Nephrology - [address] 483[address] Jose L Whitley MD [address] [place] [address], [address] [place] [phone] documented as of this encounter Procedures Procedure Name Priority Date/Time Associated Diagnosis Comments COMPREHENSIVE METABOLIC PANEL (CMP) Routine 06/03/2023 13:14 EDT Acute renal failure, unspecified acute renal failure type (HCC-CMS) documented in this encounter Results * COMPREHENSIVE METABOLIC PANEL (CMP) (06/03/2023 13:14 EDT) GFR, Calculated, External 32 [facility] Glucose, Serum, External 92 mg/dL [facility] Albumin, External 3.6 g/dL [facility] Total Alkaline Phosphatase, External 117 [facility] ALT, External 29 [facility] AST, External 21 U/L [facility] BUN, External 29 mg/dL [facility] Calculated Calcium, External [facility] Calcium, External 8.9 mg/dL [facility] Chloride, External 103 mmol/L [facility] CO2, External 32 mmol/L [facility] Creatinine, External 1.59 mg/dL [facility] Fasting?, External [facility] Potassium, External 4.0 mmol/L [facility] Sodium, External 141 mmol/L [facility] Total Protein, External 7.1 [facility] Bilirubin, Total, External 0.3 [facility] Blood VENOUS BLOOD / Unknown 06/03/2023 13:14 EDT us Jose L Whitley MD CHEMISTRY & BLOOD GAS ORDERA BLES Final Result [facility] documented in this encounter Visit Diagnoses Diagnosis Acute renal failure, unspecified acute renal failure type (HCC-CMS)- Primary documented in this encounter Care Teams Pharmacy Manager Relationship Specialty Start Date End Date Chary Ordoñez [address] [phone] PCP - General Family Medicine - Primary Care 04/27/23 documented as of this encounter
--- OUTSIDE RECORDS SUMMARY | 2024-03-17 12:16 | XMS_ITS | Encounter Summary ---
Author Organization [facility] Address [address] [place] [address] Care Team Providers Care Jig Box Operator Name Role Phone LouChary Primary Care Provider [phone] Reason for Referral * Specialty Diagnoses / Procedures Referred By Savannah ware Referred To Contact Angelika Christensen NP Phone: tel: fax: Referral ID Status Reason Start Date Expiration Date Visits Re quested Visits Authorized Comments Please call our clinic at [phone] to schedule a follow up appointment with your surgeon in 2-3 weeks. * Specialty Diagnoses / Procedures Referred By Savannah ware Referred To Contact Angelika Christensen NP Phone: tel: fax: Referral ID Status Reason Start Date Expiration Date Visits Re quested Visits Authorized Comments We are currently collecting quality data on patients having surgery. You may receive a phone call, email, and/or letter about your surgery asking you a series of follow up questions to evaluate specifics aspects of your care. Thank you for your participation. Reason for Visit * Auth/Cert (Routine) Specialty Diagnoses / Procedures Referred By Contjosee t Referred To Contact Diagnoses Vaginal fistula Procedures NM PLACEMENT SETON Insertion, seton Referral ID Status Reason Start Date Expiration Date Visits Re quested Visits Authorized [id number] 1 1 Encounter Details Date Type Department Care Team (Late st Contact Info) Description 04/30/2023 8:02 EST - 04/30/2023 11:45 EST Hospital Encounter [facility] OR [address] [place] [address] [phone] Ryan Ruiz MD [address] [place] [address], [facility], Level [address] [place] [address] Discharge Disposition: Home or Self Care Social History Tobacco Use Types Packs/Day [...] on file documented as of this encounter Last Filed Vital Signs Vital Sign Reading Time Taken Comments Blood Pressure 117/77 04/30/2023 1130 EST Pulse - - Temperature 36.6 ??C (97.9 ??F) 04/30/2023 1030 EST Respiratory Rate 16 04/30/2023 1130 EST Oxygen Saturation 98% 04/30/2023 1130 EST Inhaled Oxygen Concentration - - Weight 36.6 kg (80 lb 11 oz) 04/30/2023 0907 EST Height - - Body Mass Index 16.3 04/29/2023 1008 EST documented in this encounter Functional Status * Are you deaf or do you have serious difficulty hearing? Answer Date of Assessment Author No 04/16/2018 12:00 EST Sa karlie Brantley, RN * Are you blind or do [...] karlie Monique RN documented in this encounter Medications at Time of Discharge acetaminophen (TYLENOL) 325 mg tablet Take 2 Tablets by mouth every 6 hours as needed for Pain. Please alternate taking with ibuprofen so you are taking one or the other every three hours. 04/30/2023 amitriptyline (ELAVIL) 10 mg tablet Take 2 Tablets by mouth at bedtime. 60 Tablet 5 10/22/2021 cholecalciferol, Vitamin D3, 25 mcg (1,000 unit) tablet Take 1 Tablet by mouth daily. cyanocobalamin (VITAMIN B12) 1,000 mcg/mL injection Inject 1 mL into the muscle every 28 days. cyclobenzaprine (FLEXERIL) 5 mg tablet TAKE ONE TABLET BY MOUTH THREE TIMES A DAY NEEDED 10/12/2021 DULoxetine (CYMBALTA) 30 mg delayed release capsule Take 1 Capsule by mouth daily. estradioL (ESTRACE) 0.5 mg tablet Take 0.5 Tablets by mouth daily. 1/2 tab daily FOLIC ACID ORAL Take 1 Tab by mouth daily. loperamide (IMODIUM) 2 mg capsule TAKE 1-2 CAPSULES BY MOUTH ONCE DAILY NEEDED FOR TO CONTROL OSTOMY OUTPUT 09/25/2021 Magnesium Oxide 500 mg capsule Take 1 Capsule by mouth daily. 2021 metoprolol SUCCinate (TOPROL-XL) 25 mg tablet Take 0.5 Tablets by mouth daily. 09/24/2021 ONDANSETRON HCL ORAL Take 4 mg by mouth 3 times daily. potassium chloride (MICRO-K) 10 mEq capsule Take 2 Capsules by mouth daily. sodium bicarbonate 650 mg tablet Take 4 Tablets by mouth 3 times daily. 09/01/2013 tocopheryl acetate (VITAMIN E) 45 mg (100 unit) capsule Take 1 Capsule by mouth daily. ibuprofen (MOTRIN) 400 mg tablet Take 1 Tablet by mouth every 6 hours as needed for Pain. 04/30/2023 4 documented as of this encounter Ordered Prescriptions Prescription Sig Dispense Quantity Refills Last Filled Start Date End Date acetaminophen (TYLENOL) 325 mg tablet Take 2 Tablets by mouth every 6 hours as needed for Pain. Please alternate taking with ibuprofen so you are taking one or the other every three hours. 04/30/2023 ibuprofen (MOTRIN) 400 mg tablet Take 1 Tablet by mouth every 6 hours as needed for Pain. 04/30/2023 4 documented in this encounter Discharge Disposition Disposition Code Departure Means Destination Comment s Home or Self Care Wheelchair Home documented in this encounter Progress Notes * Roldan Khan MD - 04/30/2023 0917 EST Plastic Surgery Asked by Dr. Ruiz to evaluate patient She has recurrent perineal fistula History of Crohn's disease, CKD Plan for EUA, seton placement today Met with patient to introduce self and discuss my role No additional reconstructive efforts today Will assess in the OR with Dr. Ruiz Will arrange outpatient follow up to discuss appropriate next steps Patient states understands and appreciates my involvement Roldan Khan MD documented in this encounter H&P Notes * Ryan Ruiz MD - 04/30/2023 0905 EST The preoperative history and physical which was performed within 30 days of this procedure has been reviewed and the clinically appropriate elements of the physical examination have been repeated. There are no changes to the documented history and physical or if so such changes are documented below Heart RRR Lungs CTA Bilat Ryan Ruiz MD 04/30/2023 9:05 Source Note - Ryan Ruiz MD - 04/24/2023 15:15 EST Subjective: Patient ID: Zaira Collins is an 67 y.o. female. Chief Complaint Patient presents with Follow-up 04/21 seton fell out, s/p 11/19/22 seton placement for anovaginal fistula. Discuss replacement. 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 I placed a seton here in November. Couple days ago it fell out. Since then she has not had any pain but does have more drainage which is having a negative impact on quality of life. Patient Active Problem List Diagnosis Chronic kidney disease, stage III (moderate) (HCC-CMS) Tachycardia Hematuria Diarrhea with dehydration Nephrocalcinosis Renal tubular acidosis Nephrolithiasis Crohn's disease (HCC-CMS) Fibromyalgia Disruption of perineal wound Perineal fistula PONV (postoperative nausea and vomiting) Vaginal fistula Past Medical History: Diagnosis Date Anemia Noted 11/11/22: 05/16/22: HCT 41.2. HGB 13.4 Anomaly, cardiac tachycardia Arrhythmia Noted 11/11/22: Hx of tachycardia, on Metoprolol, no current symptoms Chronic kidney disease, stage III (moderate) (HCC-CMS) Noted 11/10/22: Stage 3 Crohn's disease (HCC-CMS) Noted 11/11/22: s/p colectomy and small bowel resections with ileostomy Depression Diarrhea with dehydration Noted 11/11/22: leading to recurrent episodes of ERNESTINA Edentulous Noted : No teeth Environmental allergies Exercise involving walking Noted 11/11/22: Walking dog daily, 1-2 FOS she might be SOB. Fibromyalgia Noted 11/11/22 H/O ileostomy Heart murmur Noted 11/11/22: Diagnosed a few yrs ago per pt Hematuria cystoscopy, renal CT, cytology unremarkable Hepatitis Noted 11/11/22:age 31 History of general anesthesia Noted 11/11/22: Without any issues. Mental disorder Noted 11/11/22: Depression controlled well on Cymbalta Nephrocalcinosis on imaging since 1999 Nephrolithiasis unknown type, required procedrues for removal; no recent stones Osteoporosis Perineal fistula Noted 11/04/22 Postprocedural non-healing wound small cavity anus Renal tubular acidosis Noted 11/11/22: dx at [facility], after bowel surgery Seizures (HCC-CMS) Noted 11/11/22: Due to taking Chantix Tachycardia Noted 11/11/22: rx with b-charu, asymptomatic Past Surgical History: Procedure Laterality Date COLON SURGERY HYSTERECTOMY ILEOSTOMY OR JEJUNOSTOMY 1983 RECTAL SURGERY anus removal 03/2018, debridement 10/2018 SMALL INTESTINE SURGERY TOTAL COLECTOMY Family History Problem Relation Age of Onset *Other(comment) Mother Pancreatic Cancer Mother Social Social History Tobacco Use Smoking status: Every Day Current packs/day: 0.25 Average packs/day: 0.2 packs/day for 46.5 years (11.6 ttl pk-yrs) Types: Cigarettes Start date: 10/10/1976 Smokeless tobacco: Never Tobacco comments: 5 cigarettes daily Substance Use Topics Alcohol use: Yes Comment: rarely Drug use: Yes Types: Marijuana Comment: smoking at night Current Outpatient Medications on File Prior to Visit Medication Sig Dispense Refill acetaminophen (TYLENOL) 325 mg tablet Take 3 Tabs by mouth every 6 hours. Please alternate taking with ibuprofen so you are taking one or the other every three hours. (Patient taking differently: Take 1,000 mg by mouth every 6 hours.) 1 Tab 0 amitriptyline (ELAVIL) 10 mg tablet Take 2 Tablets by mouth at bedtime. 60 Tablet 5 calcium carbonate/vitamin D3 (VITAMIN D-3 ORAL) Take by mouth. (Patient not taking: Reported on 11/11/2022) cholecalciferol, Vitamin D3, 25 mcg (1,000 unit) tablet Take 1 Tablet by mouth daily. cyanocobalamin (VITAMIN B12) 1,000 mcg/mL injection Inject 1 mL into the muscle every 28 days. cyclobenzaprine (FLEXERIL) 5 mg tablet TAKE ONE TABLET BY MOUTH THREE TIMES A DAY NEEDED DULoxetine (CYMBALTA) 30 mg delayed release capsule Take 1 Capsule by mouth daily. ergocalciferol (DRISDOL; VITAMIN D2) 50,000 unit capsule Take 50,000 Units by mouth every 7 days. (Patient not taking: Reported on 04/24/2023) estradioL (ESTRACE) 0.5 mg tablet Take 0.5 Tablets by mouth daily. 1/2 tab daily FOLIC ACID ORAL Take 1 Tab by mouth daily. GINKGO BILOBA ORAL Take by mouth every morning. (Patient not taking: Reported on 04/20/2023) GINSENG ORAL Take by mouth every morning. (Patient not taking: Reported on 04/20/2023) loperamide (IMODIUM) 2 mg capsule TAKE 1-2 CAPSULES BY MOUTH ONCE DAILY NEEDED FOR TO CONTROL OSTOMY OUTPUT Magnesium Oxide 500 mg capsule Take 1 Capsule by mouth daily. metoprolol SUCCinate (TOPROL-XL) 25 mg tablet Take 0.5 Tablets by mouth daily. ONDANSETRON HCL ORAL Take 4 mg by mouth 3 times daily. potassium chloride (MICRO-K) 10 mEq capsule Take 2 Capsules by mouth daily. sodium bicarbonate 650 mg tablet Take 4 Tablets by mouth 3 times daily. tocopheryl acetate (VITAMIN E) 45 mg (100 unit) capsule Take 1 Capsule by mouth daily. traMADol (ULTRAM) 50 mg tablet Take 1-2 Tablets by mouth every 6 hours as needed for Pain. Daily Max: 400 mg (Patient not taking: Reported on 04/20/2023) 30 Tablet 0 traMADol (ULTRAM) 50 mg tablet Take 50 mg by mouth 2 times daily. (Patient not taking: Reported on 10/31/2022) No current facility-administered medications on file prior to visit. Allergies Allergen Reactions Chantix [Varenicline] SEIZURES Review of Systems Constitutional: Negative for chills, fever and weight loss. Respiratory: Negative for shortness of breath. Cardiovascular: Negative for chest pain and palpitations. Gastrointestinal: Negative for abdominal pain and blood in stool. Endo/Heme/Allergies: Does not bruise/bleed easily. - See HPI Objective: BP (!) 142/78 Pulse 104 Ht (!) 149.9 cm (59.02) Wt (!) 37.2 kg (82 lb) SpO2 99% BMI 16.55 kg/m?? Physical Exam Constitutional: Appearance: She is well-developed and well-nourished. Eyes: General: No scleral icterus. Pupils: Pupils are equal, round, and reactive to light. Pulmonary: Effort: Pulmonary effort is normal. No respiratory distress. Genitourinary: Comments: Chronic scarring of the perineal wound at the site of where her anus used to be with a tunnel at the apex that goes to the back wall the vagina. No evidence of infection. Skin: General: Skin is warm and dry. Coloration: Skin is not pale. Findings: No rash. Psychiatric: Behavior: Behavior normal. Judgment: Judgment normal. Assessment: I will bring her to the operating room and placed a seton. Will do this on a day when one of the plastic surgeons is available and asked them to come in and take a look and give me their thoughts on possible more definitive repair. Plan: (N82.8) Vaginal fistula (primary encounter diagnosis) Plan: CASE REQUEST OPERATING ROOM, CASE REQUEST OPERATING ROOM Ryan Ruiz MD No orders of the defined types were placed in this encounter. documented in this encounter OR Notes * OR Surgeon - Ryan Ruiz MD - 04/30/2023 1121 EST Insertion, mercy Operative Note Date: 04/30/2023 Location: [facility] OR Name: Zaira Collins, : 1955, Diagnosis Pre-Op Diagnosis Codes: * Vaginal fistula [N82.8] Post-op Diagnosis * Vaginal fistula [N82.8] Procedures * Insertion, seton Surgeons * Ryan Ruiz MD - Primary * Roldan Khan MD - Assisting Procedure Summary Anesthesia: Monitored Anesthesia Care ASA: III Estimated Blood Loss: No Blood Loss Documented Total IV Fluids: mL LDAs: Peripheral IV 04/30/23 0915 Left;Posterior Forearm (Active) Staff: Bung Dropper: Juwan Pineda Jr., RN; Raysa Cerda RN Relief Bung Dropper: Jaimie Demarco RN Scrub Person: Ko Simon RN Patient Noc Analyst: Hilaria Perry Indications: Zaira Collins is an 67 y.o. female who has a chronic fistula from her old perineal wound to the back wall of the vagina on the left side. This has been well-managed by the seton but it fell out recently. Procedure Details: Patient was brought to the operating room, placed supine on the OR table. SCDs were applied. After completing a safety checklist she was given IV sedation by the anesthesiology team and then placed in lithotomy position with careful padding of the extremities. Perineum was prepped and draped in usual sterile fashion and a final pause was held in which correct patient and procedure to be performedconfirmed by those present. Local anesthetic was injected around the old perineal wound. There was no evidence of any infection. The fistula track went from the top of the old perineal wound to the left side of the vaginal introitus. A vessel loop was placed through the tract and secured to itself with silk suture. Complications: None; patient tolerated the procedure well. Disposition: PACU - hemodynamically stable. Condition: stable Specimens:None Implants: none Ryan Ruiz MD documented in this encounter Plan of Treatment Upcoming Encounters Date Type Department Care Team (Late st Contact Info) Description 04/07/2024 9:00 EST Office Visit [facility] Endocrinology - [address] [address] Vincenzo Rawls MD [address] [place] [address] [address] [place] [phone] 08/22/2024 15:30 EDT Telemedicine [facility] Nephrology - [address] [address] Jose L Whitley MD [address] [place], [place] [id number], [address] 2 [place] [phone] Scheduled Referrals Name Type Priority Associated Diagnoses Order Schedule PROVIDER FOLLOW-UP INSTRUCTIONS Outpatient Referral Routine Ordered: 04/30/2023 PROVIDER FOLLOW-UP INSTRUCTIONS Outpatient Referral Routine Ordered: 04/30/2023 documented as of this encounter Procedures Procedure Name Priority Date/Time Associated Diagnosis Comments INSERTION, SETON STITCH 04/30/2023 9:[address] Vaginal fistula documented in this encounter Visit Diagnoses Diagnosis Vaginal fistula- Primary Other specified fistula involving female genital tract documented in this encounter Admitting Diagnoses Diagnosis Vaginal fistula Other specified fistula involving female genital tract documented in this encounter Administered Medications Inactive Administered Medications - up to 3 most recent administrations Medication Order MAR Action Action Date Dose Rate Site acetaminophen (TYLENOL) tablet 650 mg 650 mg, oral, PRN, 1 dose, Starting on Jazlyn 04/30/23 at 1100, Until Jazlyn 04/30/23 at 1056, Pain, Routine, Recovery (only) Given 04/30/2023 10:56 EST 650 mg atropine 0.1 mg/mL syringe 0.5 mg 0.5 mg, intravenous, PRN, Starting on Jazlyn 04/30/23 at 1046, Until Jazlyn 04/30/23 at 1404, Symptomatic HR < 50, Routine, Recovery (only) diphenhydrAMINE (BENADRYL) injection 12.5 mg 12.5 mg, intravenous, PRN, 1 dose, Starting on Jazlyn 04/30/23 at 1046, Until Jazlyn 04/30/23 at 1404, nausea, Routine, Recovery (only) fentaNYL citrate (PF) injection 25-50 mcg 25-50 mcg, intravenous, EVERY 5 MIN PRN, Starting on Jazlyn 04/30/23 at 1046, Until Jazlyn 04/30/23 at 1404, Pain, Routine, Recovery (only) Given 04/30/2023 10:55 EST 25 mcg lactated ringers (LR) infusion 25 mL/hr, intravenous, CONTINUOUS, Starting on Jazlyn 04/30/23 at 0930, Until Jazlyn 04/30/23 at 1404, Routine, Preprocedure Continued by Anesthesia 04/30/2023 9:45 EST 25 mL/hr New Bag 04/30/2023 9:19 EST 25 mL/hr 25 mL/hr lactated ringers (LR) infusion at 75 mL/hr, intravenous, CONTINUOUS, Starting on Jazlyn 04/30/23 at 1115, Until Jazlyn 04/30/23 at 1404, Routine, Recovery (only) metronidazole (FLAGYL) infusion 500 mg 500 mg, intravenous, Administer over 30 Minutes, PRE-OP ONCE, 1 dose, On Jazlyn 04/30/23 at 0930, Type of Therapy: Prophylaxis, Suspected Indication (Select all that apply): Colorectal surgery, Routine, Preprocedure Given 04/30/2023 9:38 EST 500 mg naloxone (NARCAN) injection 0.2 mg 0.2 mg, intravenous, PRN, Starting on Jazlyn 24 at 1046, Until Jazlyn 24 at 1404, Opioid Reversal, Routine, Recovery (only) ondansetron (PF) (ZOFRAN) injection 4 mg 4 mg, intravenous, PRN, 1 dose, Starting on Jazlyn 24 at 1046, Until Jazlyn 24 at 1404, Nausea, Vomiting, Routine, Recovery (only) documented in this encounter Discontinued Medications Medication Sig Discontinue Reason Start Date End Da te acetaminophen (TYLENOL) 325 mg tablet Take 3 Tabs by mouth every 6 hours. Please alternate taking with ibuprofen so you are taking one or the other every three hours. Reorder 10/27/2018 04/30/2023 documented as of this encounter Active and Recently Administered Medications Times are shown in EST. Scheduled Medication Order 04/28/2023 04/29/2023 04/30/2023 metronidazole (FLAGYL) infusion 500 mg (COMPLETED) 500 mg, intravenous, Administer over 30 Minutes, PRE-OP ONCE, 1 dose, On Jazlyn 04/30/23 at 0930, Type of Therapy: Prophylaxis, Suspected Indication (Select all that apply): Colorectal surgery, Routine, Preprocedure 0938 (Given - Provid er: Nicolasa Mosher) Continuous Medication Order 04/28/2023 04/29/2023 04/30/2023 lactated ringers (LR) infusion 25 mL/hr, intravenous, CONTINUOUS, Starting on Jazlyn 24 at 0930, Until Jazlyn 24 at 1404, Routine, Preprocedure 0919 (New Bag - Prov ider: Nicolasa Mosher)0945 (Continued by Anesthesia - Provider: MARY Wallace)1022 (Anesthesia Volume Adjustment - Provider: MARY Wallace) lactated ringers (LR) infusion at 75 mL/hr, intravenous, CONTINUOUS, Starting on Jazlyn 24 at 1115, Until Jazlyn 04/30/23 at 1404, Routine, Recovery (only) 1115 (Canceled Entry - Provider: Batch Job User Admin - Comment: Automatically canceled at discontinue of medication order) PRN Medication Order 04/28/2023 04/29/2023 04/30/2023 acetaminophen (TYLENOL) tablet 650 mg (COMPLETED)(Linked Group 1) 650 mg, oral, PRN, 1 dose, Starting on Jazlyn 04/30/23 at 1100, Until Jazlyn 04/30/23 at 1056, Pain, Routine, Recovery (only) 1056 (Given - Provid er: Marybeth Yeung RN) atropine 0.1 mg/mL syringe 0.5 mg 0.5 mg, intravenous, PRN, Starting on Jazlyn 04/30/23 at 1046, Until Jazlyn 04/30/23 at 1404, Symptomatic HR < 50, Routine, Recovery (only) diphenhydrAMINE (BENADRYL) injection 12.5 mg 12.5 mg, intravenous, PRN, 1 dose, Starting on Jazlyn 24 at 1046, Until Jazlyn 04/30/23 at 1404, nausea, Routine, Recovery (only) fentaNYL citrate (PF) injection 25-50 mcg 25-50 mcg, intravenous, EVERY 5 MIN PRN, Starting on Jazlyn 04/30/23 at 1046, Until Jazlyn 04/30/23 at 1404, Pain, Routine, Recovery (only) 1055 (Given - Provid er: Marybeth Yeung RN) lidocaine-EPINEPHrine 1 %-1:100,000 20 mL, BUPivacaine (PF) (MARCAINE) 0.5% 20 mL, sodium bicarbonate 4.2 % 7 mL (CANCELED) PRN, Starting on Jazlyn 04/30/23 at 1008, Until Jazlyn 04/30/23 at 1020, Routine, Intraprocedure 1008 (Given - Provid er: Ryan Ruiz MD) naloxone (NARCAN) injection 0.2 mg 0.2 mg, intravenous, PRN, Starting on Jazlyn 04/30/23 at 1046, Until Jazlyn 24 at 1404, Opioid Reversal, Routine, Recovery (only) ondansetron (PF) (ZOFRAN) injection 4 mg 4 mg, intravenous, PRN, 1 dose, Starting on Jazlyn 24 at 1046, Until Jazlyn 24 at 1404, Nausea, Vomiting, Routine, Recovery (only) sodium chloride 0.9 % irrigation (CANCELED) PRN, Starting on Jazlyn 04/30/23 at 1001, Until Jazlyn 04/30/23 at 1020, Routine, Intraprocedure 1001 (Given - Provid er: Ryan Ruiz MD) Linked Groups Order Group 1: acetaminophen (TYLENOL) solution unit dose cup 495 mg (COMPLETED) 495 mg (rounded from 500 mg), oral, PRN, 1 dose, Starting on Jazlyn 04/30/23 at 1100, Until Jazlyn 04/30/23 at 1056, Pain, Routine, Recovery (only) Or acetaminophen (TYLENOL) tablet 650 mg (COMPLETED)Jump to med 650 mg, oral, PRN, 1 dose, Starting on Jazlyn 04/30/23 at 1100, Until Jazlyn 04/30/23 at 1056, Pain, Routine, Recovery (only) documented in this encounter Orders Medications Ordered That Gerald ht Not Have Been Administered Count Last Ordered Date First Ordered Date acetaminophen (TYLENOL) solu tion unit dose cup 495 mg 1 04/30/2023 acetaminophen (TYLENOL) tablet 1,000 mg 1 0 04/30/2023 atropine 0.1 mg/mL syringe 0.5 mg 1 024 diphenhydrAMINE (BENADRYL) i njection 12.5 mg 1 04/30/2023 gabapentin (NEURONTIN) capsule 600 mg 1 ibuprofen (MOTRIN) tablet 600 mg 2 04/30/19 lactated ringers (LR) infusion 1 04/30/2023 lidocaine (PF) 10 mg/mL (1 % ) injection 2 mg 1 04/30/2023 lidocaine-EPINEPHrine 1 %-1: 100,000 20 mL, BUPivacaine (PF) (MARCAINE) 0.5% 20 mL, sodium bicarbonate 4.2 % 7 mL 1 04/30/2023 naloxone (NARCAN) injection 0.2 mg 1 2023 ondansetron (PF) (ZOFRAN) injection 4 mg 1 04/30/2023 sodium chloride 0.9 % irrigation 1 04/30/19 Diet Count Last Ordered Date First Orde red Date DISCHARGE DIET 1 04/30/2023 Nursing Count Last Ordered Date First Orde red Date ACTIVITY INSTRUCTIONS 1 04/30/2023 BATHING INSTRUCTIONS 1 04/30/2023 DRIVING INSTRUCTIONS 1 04/30/2023 WOUND CARE INSTRUCTIONS 2 04/30/2023 Discharge Count Last Ordered Date First Orde red Date DISCHARGE PATIENT 1 04/30/2023 Legal Count Last Ordered Date First Orde red Date MISCELLANEOUS DISCHARGE INSTRUCTIONS 2 04/16 documented in this encounter Care Teams Jig Box Operator Relationship Specialty Start Date End Date Chary Ordoñez [address] [place] [place] [phone] PCP - General Family Medicine - Primary Care 04/27/23 documented as of this encounter
--- OUTSIDE RECORDS SUMMARY | 2024-03-17 12:16 | XMS_ITS | Encounter Summary ---
Author Organization [facility] Address [address] [place] [address] Care Team Providers Care Geothermal Hvac Technician Name Role Phone Chary Ordoñez Primary Care Provider [phone] Reason for Visit * Reason Comments Follow-up Perineal fistula Encounter Details Date Type Department Care Team (Latest Contact Info) Description 06/30/2023 13:00 EDT Office Visit [facility] Plastic, Reconstructive & Cosmetic Surgery - [address], [address] [place] [address] Roldan Khan MD [address] [place] [address] [place] [phone] Perineal fistula (Primary Dx); Crohn's disease with complication, unspecified gastrointestinal tract location ([facility]); Stage 3b chronic kidney disease ([facility]); Cigarette nicotine dependence without complication Social History Tobacco Use Types Packs/Day Years [...] karlie Monique RN documented in this encounter Progress Notes * Christine Disla MA - 06/30/2023 1300 EDT Examination chaperoned by CHRISTINE DISLA MA. * Roldan Khan MD - 06/30/2023 1300 EDT Plastic and Reconstructive Surgery Office Visit Patient Name: Zaira Collins Date of Service: 06/30/23 Chief Complaint: Chief Complaint Patient presents with Follow-up Perineal fistula HPI: Zaira Collins is a 67 y.o. female who returns to discuss perineal fistula. No significant changes since her last visit. Has been working on eating more - says she gained 10 pounds. Is smoking about 5 cigarettes per day, working on cutting nicotine out. Same pain around her perineum. Per prior HPI: The patient has a history of Crohn's disease. She has had numerous procedures going back to 2008 with General Surgery. She has had a completion proctectomy/removal of anus with Dr. Ruiz. She has an ileostomy. 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 Her most recent EUA and seton placement was 04/30/23, I was present in the OR at that time to evaluate the wound with Dr. Ruiz. She has been doing fine since the procedure, no significant new changes. She has the same chronic discomfort. She has history of CKD, smoking 1/2 PPD, low albumin, BMI of 16.3, Crohn's Disease, fibromyalgia. She has tried to quit smoking in the past and is interested in doing so. Review of Systems - Pertinent items are noted in HPI. Allergies: Allergies as of 06/30/2023 - Reviewed 05/22/2023 Allergen Reaction Noted Chantix [varenicline] Nsaids (non-steroidal anti-inflammatory drug) Other (See Comments) 04/30/2023 PMH: Past Medical History: Diagnosis Date Anemia 05/16/2022 H/H = 13.4/41.2 Anomaly, cardiac tachycardia Chronic kidney disease, stage III (moderate) ([facility]) Crohn's disease ([facility]) Noted 11/11/22: s/p colectomy and small bowel resections with ileostomy Depression 04/29/2023 Depression controlled well on Cymbalta Diarrhea with dehydration 04/29/2023 leading to recurrent episodes of ERNESTINA Does not exercise 04/29/2023 no formal routine, pt can tolerate 1 flight of stairs Edentulous Environmental allergies Fibromyalgia Noted 11/11/22 H/O ileostomy Heart murmur 04/29/2023 Diagnosed a few yrs ago per pt Hematuria cystoscopy, renal CT, cytology unremarkable Hepatitis 04/29/2023 age 31 History of general anesthesia Noted 11/11/22: Without any issues. 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 Nephrolithiasis unknown type, required procedrues for removal; no recent stones Osteoporosis Paroxysmal atrial tachycardia with block 04/29/2023 Metoprolol, no current symptoms Perineal fistula Postprocedural non-healing wound small cavity anus Renal tubular acidosis 04/29/2023 [place] [facility] Seizures ([facility]) 04/29/2023 Due to taking Chantix approx 6 years ago (~2018) Tachycardia 04/29/2023 Metoprolol, no current symptoms Vaginal fistula Wears dentures 04/29/2023 uppers PSH: Past Surgical History: Procedure Laterality Date COLON SURGERY HYSTERECTOMY ILEOSTOMY OR JEJUNOSTOMY 1983 RECTAL SURGERY anus removal 03/2018, debridement 10/2018 RECTAL SURGERY 10/11/2020 Placement of a draining Seton for fistula - Dr Ruiz RECTAL SURGERY 11/19/2022 fistula communicating to the vagina, seton placed, perianal abscess packed with iodoform - Dr Ruiz SMALL INTESTINE SURGERY TOTAL COLECTOMY Social history: Social History Socioeconomic History Marital status: Spouse name: Not on file Number of children: Not on file Years of education: Not on file Highest education level: Not on file Occupational History Not on file Tobacco Use Smoking status: Every Day Current packs/day: 0.25 Average packs/day: 0.3 packs/day for 46.7 years (11.7 ttl pk-yrs) Types: Cigarettes Start date: 10/10/1976 Smokeless tobacco: Never Tobacco comments: 5 cigarettes daily Substance and Sexual Activity Alcohol use: Yes Comment: rarely Drug use: Not Currently Types: Marijuana Sexual activity: Not on file Other Topics Concern Not on file Social History Narrative Not on file Social Determinants of Health Financial Resource Strain: Not on file Food Insecurity: Not on file Transportation Needs: Not on file Physical Activity: Not on file Stress: Not on file Social Connections: Not on file Housing Stability: Not on file Family history: Family History Problem Relation Age of Onset Pancreatic Cancer Mother Home medications: Current Outpatient Medications: acetaminophen (TYLENOL) 325 mg tablet, Take 2 Tablets by mouth every 6 hours as needed for Pain. Please alternate taking with ibuprofen so you are taking one or the other every three hours., Disp: , Rfl: amitriptyline (ELAVIL) 10 mg tablet, Take 2 Tablets by mouth at bedtime., Disp: 60 Tablet, Rfl: 5 cholecalciferol, Vitamin D3, 25 mcg (1,000 unit) tablet, Take 1 Tablet by mouth daily., Disp: , Rfl: cyanocobalamin (VITAMIN B12) 1,000 mcg/mL injection, Inject 1 mL into the muscle every 28 days., Disp: , Rfl: cyclobenzaprine (FLEXERIL) 5 mg tablet, TAKE ONE TABLET BY MOUTH THREE TIMES A DAY NEEDED, Disp:, Rfl: DULoxetine (CYMBALTA) 30 mg delayed release capsule, Take 1 Capsule by mouth daily., Disp: , Rfl: estradioL (ESTRACE) 0.5 mg tablet, Take 0.5 Tablets by mouth daily. 1/2 tab daily, Disp: , Rfl: FOLIC ACID ORAL, Take 1 Tab by mouth daily., Disp: , Rfl: ibuprofen (MOTRIN) 400 mg tablet, Take 1 Tablet by mouth every 6 hours as needed for Pain. (Patientnot taking: Reported on 06/30/2023), Disp: , Rfl: loperamide (IMODIUM) 2 mg capsule, TAKE 1-2 CAPSULES BY MOUTH ONCE DAILY NEEDED FOR TO CONTROL OSTOMY OUTPUT, Disp: , Rfl: Magnesium Oxide 500 mg capsule, Take 1 Capsule by mouth daily., Disp: , Rfl: metoprolol SUCCinate (TOPROL-XL) 25 mg tablet, Take 0.5 Tablets by mouth daily., Disp: , Rfl: ONDANSETRON HCL ORAL, Take 4 mg by mouth 3 times daily. , Disp: , Rfl: potassium chloride (MICRO-K) 10 mEq capsule, Take 2 Capsules by mouth daily., Disp: , Rfl: sodium bicarbonate 650 mg tablet, Take 4 Tablets by mouth 3 times daily., Disp: , Rfl: tocopheryl acetate (VITAMIN E) 45 mg (100 unit) capsule, Take 1 Capsule by mouth daily., Disp: , Rfl: Physical Exam Nancy was present as supervisor stone during the physical exam and, if taken, during photos There were no vitals filed for this visit. Estimated body mass index is 16.28 kg/m?? as calculated from the following: Height as of 05/22/23: 149.9 cm (59). Weight as of 05/22/23: 36.6 kg (80 lb 9.6 oz). Patient is alert, oriented, and non-distressed Regular rate and rhythm Unlabored respirations Focused Exam: Anus surgical absent Seton in place from perineal to posterior vaginal wall Ileostomy in place Exam stable Imaging: None Assessment & Plan: Zaira Collins is a 67 y.o. 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 -We reviewed surgical options and coordination -She has been gaining weight which is a good sign for wound healing -She has cut back but not completely eliminated cigarettes -Reiterated the importance of nicotine abstinence for wound healing and decreased risks of complications -She understands this and is working towards cessation -She will return in 1 month to reassess smoking status and discussed next steps -All questions answered Roldan Khan MD 06/30/2023 13:39 I spent a total of 20 minutes on the date of this encounter meeting with the patient and reviewing documentation/coordinating care as described in the above note. documented in this encounter Plan of Treatment Upcoming Encounters Date Type Department Care Team (Late st Contact Info) Description 04/07/2024 9:00 EST Office Visit [facility] Endocrinology - [address] [id number] Vincenzo Rawls MD [address] [place] [address] [address] [place] [phone] 08/22/2024 15:30 EDT Telemedicine [facility] Nephrology - [address] [id number] Jose L Whitley MD [address] [facility] [address] [place] [phone] documented as of this encounter Visit Diagnoses Diagnosis Perineal fistula- Primary Urethral fistula Crohn's disease with complication, unspecified gastrointestinal tract location ([facility]) Stage 3b chronic kidney disease ([facility]) Cigarette nicotine dependence without complication Tobacco use disorder documented in this encounter Care Teams Geothermal Hvac Technician Relationship Specialty Start Date End Date Chary Ordoñez [address] [facility] [place] [address] PCP - General Family Medicine - Primary Care 04/27/23 documented as of this encounter
--- OUTSIDE RECORDS SUMMARY | 2024-03-17 12:16 | XMS_ITS | Encounter Summary ---
Author Organization [facility] Address [address] [place] [address] Care Team Providers Care Social Work Associate Name Role Phone Lynn Saavedra MD Primary Care Provider [phone] Reason for Referral * Radiology Services (Routine/Next Available) - Specialty Report Received Specialty Diagnoses / Procedures Referred By Savannah t Referred To Contact Diagnoses Metabolic bone disease Stage 3b chronic kidney disease (HCC-CMS) Age-related osteoporosis without current pathological fracture Procedures DXA BONE DENSITY Brent Jaime MD Referral ID Status Reason Start Date Expiration Date V isits Requested Visits Authorized [id number] Specialty Report Received 1 1 Reason for Visit * Reason Comments Osteoporosis * Referral (Routine) - Receiving Office to Obtain Authorization Specialty Diagnoses / Procedures Referred By Contac t Referred To Contact Endocrinology Diagnoses Age-related osteoporosis without current pathological fracture Jennifer Ordoñez, [address] [address] [place] [address] Phone: tel: fax: [facility] Endocr[facility]ology - [address] [address] Phone: tel: fax: Referral ID Status Reason Start Date Expiration Date Visits Requested Visits Authorized [id number] Receiving Office to Obtain Authorization 1 1 Encounter Details Date Type Department Care Team (Latest Contact Info) Description 04/20/2023 10:20 EST Office Visit [facility] End[facility] - [place] [phone] Brent Jaime MD Metabolic bone disease (Primary Dx); Stage 3b chronic kidney disease (HCC-CMS); Other adult osteomalacia; Age-related osteoporosis without current pathological fracture Social History Tobacco Use Types Packs/Day Years [...] Sign Reading Time Taken Comments Blood Pressure 130/77 04/20/2023 1011 EST Pulse 86 04/20/2023 1011 EST Temperature - - Respiratory Rate - - Oxygen Saturation - - Inhaled Oxygen Concentration - - Weight 37.5 kg (82 lb 11.2 oz) 04/20/[address] Height 149.9 cm (4' 11.02) 04/20/2023 1011 EST Body Mass Index 16.69 04/20/2023 1011 EST documented in this encounter Functional Status [...] documented in this encounter Progress Notes * Brent Jaime MD - 04/20/2023 1020 EST Images from the original note were not included. Endocrinology New Patient Visit Date of Service: 04/20/2023 Chief Complaint Patient presents with Osteoporosis HPI: Zaira Collins is a 67 y.o. female with past medical history significant for CKD stage IIIb, Crohn's disease, history of nephrocalcinosis, and postmenopausal state currently on HRT who is seen in consultation at the request of Jennifer Ordoñez for evaluation and recommendations with regard to herlow bone mineral density. Patient states that she went through artificial menopause in her mid 40s status post hysterectomy and bilateral salpingo-oophorectomy. She developed significant menopausal symptoms and was subsequently placed on oral estradiol therapy which she has been on for the past 10 years or so. Patient also has a history of CKD stage IIIb with known component of metabolic bone disease. Patient had screening bone mineral density exam performed by PCP at [facility] 12/17/2021 showing: Patient denies any fractures of long bones. She reports today hairline fracture of her arm after hitting a piece of metal a few years ago. To her knowledge she denies any family history of osteoporosis. She states that neither her parents have fractured a hip. She has been treated with glucocorticoid therapy for history of Crohn's disease none currently. Patient is a current smoker of at least a half a pack per day. She denies any alcohol usage. She denies any recent kidney stones. Patient doesreport taking his vitamin D supplement though she does not know how much. As stated above patient does take estradiol 0.25 mg daily. She is otherwise without complaints today is accompanied by her sister. Review of Systems A 10 point review of systems was obtained, pertinent positives and negatives as listed above, all others negative. Active Problem List Patient Active Problem List Diagnosis Chronic kidney disease, stage III (moderate) (HCC-CMS) Tachycardia Hematuria Diarrhea with dehydration Nephrocalcinosis Renal tubular acidosis Nephrolithiasis Crohn's disease (HCC-CMS) Fibromyalgia Disruption of perineal wound Perineal fistula PONV (postoperative nausea and vomiting) PMH PSH Past Medical History: Diagnosis Date Anemia Noted [...] Renal tubular acidosis Noted 11/11/22: dx at [facility], after bowel surgery Seizures (HCC-CMS) Noted 11/11/22: Due to taking Chantix Tachycardia Noted 11/11/22: rx with b-charu, asymptomatic Past Surgical History: Procedure Laterality Date COLON SURGERY HYSTERECTOMY ILEOSTOMY OR JEJUNOSTOMY 1983 RECTAL SURGERY anus removal 03/2018, debridement 10/2018 SMALL INTESTINE SURGERY TOTAL COLECTOMY Social History Family history Social History Socioeconomic History Marital status: Spouse name: Not on file Number of children: Not on file Years of education: Not on file Highest education level: Not on file Occupational History Not on file Tobacco Use Smoking status: Every Day Current packs/day: 0.25 Average packs/day: 0.3 packs/day for 46.5 years (11.6 ttl pk-yrs) Types: Cigarettes Start date: 10/10/1976 Smokeless tobacco: Never Tobacco comments: 5 cigarettes daily Substance and Sexual Activity Alcohol use: Yes Comment: rarely Drug use: Yes Types: Marijuana Comment: smoking at night Sexual activity: Not on file Other Topics Concern Not on file Social History Narrative Not on file Social Determinants of Health Financial Resource Strain: Not on file Food Insecurity: Not on file Transportation Needs: Not on file Physical Activity: Not on file Stress: Not on file Social Connections: Not on file Housing Stability: Not on file Family History Problem Relation Age of Onset *Other(comment) Mother Pancreatic Cancer Mother Current Outpatient Medications Medication acetaminophen (TYLENOL) 325 mg tablet amitriptyline (ELAVIL) 10 mg tablet calcium carbonate/vitamin D3 (VITAMIN D-3 ORAL) cholecalciferol, Vitamin D3, 25 mcg (1,000 unit) tablet cyanocobalamin (VITAMIN B12) 1,000 mcg/mL injection cyclobenzaprine (FLEXERIL) 5 mg tablet DULoxetine (CYMBALTA) 30 mg delayed release capsule ergocalciferol (DRISDOL; VITAMIN D2) 50,000 unit capsule estradioL (ESTRACE) 0.5 mg tablet FOLIC ACID ORAL GINKGO BILOBA ORAL GINSENG ORAL loperamide (IMODIUM) 2 mg capsule Magnesium Oxide 500 mg capsule metoprolol SUCCinate (TOPROL-XL) 25 mg tablet ONDANSETRON HCL ORAL potassium chloride (MICRO-K) 10 mEq capsule sodium bicarbonate 650 mg tablet tocopheryl acetate (VITAMIN E) 45 mg (100 unit) capsule traMADol (ULTRAM) 50 mg tablet traMADol (ULTRAM) 50 mg tablet No current facility-administered medications for this visit. Allergies Allergies Allergen Reactions Chantix [Varenicline] SEIZURES Current Medications Current Outpatient Medications on File Prior to [...] 7 days. (Patient not taking: Reported on 07/07/2022) estradioL (ESTRACE) 0.5 mg tablet Take 0.5 [...] facility-administered medications on file prior to visit. Objective: BP 130/77 Pulse 86 Ht (!) 149.9 cm (59.02) Wt (!) 37.5 kg (82 lb 11.2 oz) BMI 16.69 kg/m?? Wt Readings from Last 3 Encounters: 04/20/23 (!) 37.5 kg (82 lb 11.2 oz) 01/09/23 (!) 34.7 kg (76 lb 9.6 oz) 11/19/22 (!) 34.4 kg (75 lb 13.4 oz) Physical Exam: Gen: Well-developed well-nourished in NAD Remainder of physical exam deferred today. Previous Labs: BMP: Lab Results Component Value Date NA 141 09/30/2021 K 4.1 09/30/2021 CL 105 09/30/2021 CO2 29 09/30/2021 BUN 23 09/30/2021 CREATININE 1.70 (H) 09/30/2021 CALCIUM 9.3 09/30/2021 MG 1.8 09/30/2021 PHOS 3.8 09/30/2021 LABALBU 5.0 (H) 11/24/2007 Bone mineral density exam in [facility]. Assessment/Plan: 1. 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 We discussed in detail the natural history of bone loss as a function of age, her bone mineral density exam and the meaning of the T-score, the likely role of CKD-MBD leading to her low bone mineral density. Unfortunately do not have any more recent biochemical studies including PTH measures. Patient's steel roller have requested that these be drawn. Have placed orders for calcium, phosphorus, creatinine, alkaline phosphatase, PTH, 25-OH vitamin D, 1, 25-OH2 vitamin D and requested a repeat bone mineral density exam to be performed at [facility]. Any therapy to treat the patient's low bone mineral density and reduce her risk of fracture will bedictated on her kidney function. For now recommend maintenance of current estradiol therapy. Patient to follow-up with new provider in another 4 months time once the above data is available for review. I spent a total of 45 minutes on the date of this encounter meeting with the patient and reviewing documentation/coordinating care as described in the above note. No procedures were performed at the time of the visit. documented in this encounter Plan of Treatment Upcoming Encounters Date Type Department Care Team (Late st Contact Info) Description 04/07/2024 9:00 EST Office Visit [facility] - [facility] [address] [place] [address] Vincenzo Rawls MD [address] [facility] [address] [place] [phone] 08/22/2024 15:30 EDT Telemedicine [facility] - [facility] [address] [place], [place] [address] Jose L Whitley MD [address] [place], [place] [address], [address] [place] [phone] Scheduled Orders Name Type Priority Associated Diagnoses Orde r Schedule ALKALINE PHOSPHATASE Lab Routine Metabolic bone disease Stage 3b chronic kidney disease ([facility]) Ordered: 04/20/2023 CALCIUM Lab Routine Metabolic bone disease Stage 3b chronic kidney disease ([facility]) Ordered: 04/20/2023 CREATININE Lab Routine Metabolic bone disease Stage 3b chronic kidney disease ([facility]) Ordered: 04/20/2023 PHOSPHORUS Lab Routine Metabolic bone disease Stage 3b chronic kidney disease ([facility]) Ordered: 04/20/2023 VITAMIN D (25,[place]) Lab Routine Metabolic bone disease Stage 3b chronic kidney disease ([facility]) Ordered: 04/20/2023 CALCITRIOL 1,25-DIHYDROXYVITAMIN D Lab Routine Metabolic bone disease Stage 3b chronic kidney disease ([facility]) Other adult osteomalacia Ordered: 04/20/2023 DXA BONE DENSITY Imaging Routine Metabolic bone disease Stage 3b chronic kidney disease ([facility]) Age-related osteoporosis without current pathological fracture Expected: 04/20/2023, Expires: 04/20/2025 documented as of this encounter Visit Diagnoses Diagnosis Metabolic bone disease- Primary Other disorders of bone and cartilage Stage 3b chronic kidney disease ([facility]) Other adult osteomalacia Age-related osteoporosis without current pathological fracture Senile osteoporosis documented in this encounter Historical Medications * This list may reflect changes made after this encounter. tocopheryl acetate (VITAMIN E) 45 mg (100 unit) capsule Take 1 Capsule by mouth daily. cholecalciferol, Vitamin D3, 25 mcg (1,000 unit) tablet Take 1 Tablet by mouth daily. added in this encounter Care Teams Social Work Associate Relationship Specialty Start Date End Date Lynn Saavedra MD [address] [facility] [address] PCP - General 07/07/22 04/26/23 documented as of this encounter
--- OUTSIDE RECORDS SUMMARY | 2024-03-17 12:16 | XMS_ITS | Encounter Summary ---
Author Organization [facility] Address [address] [place] [address] Care Team Providers Care Medicaid Billing Specialist Name Role Phone Chary Ordoñez Primary Care Provider [phone] Reason for Referral * (Routine/Next Available) - Receiving Office to Obtain Authorization Specialty Diagnoses / Procedures Referred By Contac t Referred To Contact Procedures CT OUTSIDE IMAGES HEAD Imaging, External Referral ID Status Reason Start Date Expiration Date Visits Requested Visits Authorized [id number] Receiving Office to Obtain Authorization 09/23/2023 1 1 Reason for Visit * (Routine/Next Available) - Receiving Office to Obtain Authorization Specialty Diagnoses / Procedures Referred By Contac t Referred To Contact Procedures CT OUTSIDE IMAGES HEAD Imaging, External Referral ID Status Reason Start Date Expiration Date Visits Requested Visits Authorized [id number] Receiving Office to Obtain Authorization 09/23/2023 1 1 Encounter Details Date Type Department Care Team (Latest Contact Info) Description 09/21/2023 Hospital Encounter [facility] Secondary Reads [place] Discharge Disposition: Home or Self Care Social [...] 04/30/2023 4 documented as of this encounter Discharge Disposition Disposition Code Departure Means Destination Home or Self Care documented in this encounter Plan of Treatment Upcoming Encounters Date Type Department Care Team (Late st Contact Info) Description 04/07/2024 9:00 EST Office Visit [facility] Endocrinology - [address] [address] Vincenzo Rawls MD [address] [place] [address] [address] [place] [address] 08/22/2024 15:30 EDT Telemedicine [facility] Nephrology - [address] [phone] Jose L Whitley MD [address] [place] [address] Rehab, Level 2 [place] [phone] documented as of this encounter Procedures Procedure Name Priority Date/Time Associated Diagnosis Comments CT OUTSIDE IMAGES HEAD Routine 09/21/2023 13:59 EDT documented in this encounter Results * CT OUTSIDE IMAGES HEAD (09/21/2023 13:59 EDT) Narrative 09/23/2023 14:00 EDT This is a non-reportable exam. us External Imaging IMG OTHER IMAGING ORDERABLES Fi nal Result documented in this encounter Visit Diagnoses Not on filedocumented in this encounter Care Teams Medicaid Billing Specialist Relationship Specialty Start Date End Date Chary Ordoñez [address] [id number] PCP - General Family Medicine - Primary Care 04/27/23 documented as of this encounter
--- OUTSIDE RECORDS SUMMARY | 2024-03-17 12:16 | XMS_ITS | Encounter Summary ---
Author Organization [facility] Address [address] [place] [address] Care Team Providers Care Industrial Hygiene Technician Name Role Phone Chary Ordoñez Primary Care Provider [phone] Reason for Referral * Laboratory Services (Routine/Next Available) - New Request Specialty Diagnoses / Procedures [facility] Referred To Contact Diagnoses Stage 3b chronic kidney disease (HCC-CMS) Procedures COMPREHENSIVE METABOLIC PANEL (CMP) Jose L Whitley MD [address] [place] [address], [address] [place] [address] Phone: tel: fax: Referral ID Status Reason Start Date Expiration Date V isits Requested Visits Authorized [id number] New Request 08/11/2023 1 1 Reason for Visit * Reason Onset Date Comments Labs Only 08/11/2023 Prior to appt Encounter Details Date Type Department Care Team (Late st Contact Info) Description 08/11/2023 Orders Only [facility] Nephrology - [address] [address] Juwan Peres, RN [address] [place] [address] Stage 3b chronic kidney disease (HCC-CMS) (Primary [...] Date Author No 04/16/2018 12:00 Sa karlie Monqiue RN documented in this encounter Plan of Treatment Upcoming Encounters Date Type Department Care Team (Late st Contact Info) Description 04/07/2024 9:00 EST Office Visit [facility] Endocrinology - [place] [phone] Vincenzo Rawls MD [address] [place] [phone] 08/22/2024 15:30 EDT Telemedicine [facility] Nephrology - [address] [place], [place] [phone] Jose L Whitley MD 1 [facility] Rehab, Level [address] [place] [address] Scheduled Orders Name Type Priority Associated Diagnoses Orde r Schedule COMPREHENSIVE METABOLIC PANEL (CMP) Lab Routine Stage 3b chronic kidney disease (HCC-CMS) every 3 months for 4 Occurrences starting 08/11/2023 until 08/10/2024, 2 completed documented as of this encounter Results * COMPREHENSIVE METABOLIC PANEL (CMP) (11/05/2023 14:53 EDT) Pathologist [facility] GFR, Calculated, External 25 [facility] Glucose, Serum, External 129 mg/dL [facility] Albumin, External 3.1 g/dL [facility] Total Alkaline Phosphatase, External 310 [facility] ALT, External 24 [facility] AST, External 23 U/L [facility] BUN, External 25 mg/dL [facility] Calculated Calcium, External [facility] Calcium, External 9.1 mg/dL [facility] Chloride, External 98 mmol/L [facility] CO2, External 35 mmol/L [facility] Creatinine, External 2.02 mg/dL [facility] Fasting?, External [facility] Potassium, External 4.6 mmol/L [facility] Sodium, External 136 mmol/L [facility] Total Protein, External 7.4 [facility] Bilirubin, Total, External 0.2 [facility] Blood VENOUS BLOOD / Unknown 11/05/2023 14:53 EDT us Jose L Whitley MD CHEMISTRY & BLOOD GAS ORDERA BLES Final Result [facility] * COMPREHENSIVE METABOLIC PANEL (CMP) (08/11/2023 12:15 EDT) GFR, Calculated, External 28 [facility] Glucose, Serum, External 102 mg/dL [facility] Albumin, External 3.6 g/dL [facility] Total Alkaline Phosphatase, External 127 [facility] ALT, External 45 [facility] AST, External 32 U/L [facility] BUN, External 29 mg/dL [facility] Calculated Calcium, External [facility] Calcium, External 9.3 mg/dL [facility] Chloride, External 101 mmol/L [facility] CO2, External 30 mmol/L [facility] Creatinine, External 1.81 mg/dL [facility] Fasting?, External [facility] Potassium, External 4.2 mmol/L [facility] Sodium, External 141 mmol/L [facility] Total Protein, External 7.2 [facility] Bilirubin, Total, External 0.3 [facility] Blood VENOUS BLOOD / Unknown 08/11/2023 12:15 EDT us Jose L Whitley MD CHEMISTRY & BLOOD GAS ORDERA BLES Final Result [facility] documented in this encounter Visit Diagnoses Diagnosis Stage 3b chronic kidney disease (HCC-CMS)- Primary documented in this encounter Care Teams Industrial Hygiene Technician Relationship Specialty Start Date End Date Chary Ordoñez [address] [phone] PCP - General Family Medicine - Primary Care 04/27/23 documented as of this encounter
--- OUTSIDE RECORDS SUMMARY | 2024-03-17 12:16 | XMS_ITS | Encounter Summary ---
Author Organization [facility] Address [address] [place] [address] Care Team Providers Care Grants Officer Name Role Phone Lynn Saavedra MD Primary Care Provider [phone] Chary Ordoñez Primary Care Provider [phone] Encounter Details Date Type Department Care Team (Late st Contact Info) Description 03/10/2023 Lab Requisition [facility] Pathology & Laboratory Medicine - [address] [address] Outr Resulting Lab, Provider Social History Tobacco [...] Info) Description 04/07/2024 9:00 EST Office Visit [facility] Endocrinology - [address] [address] Vincenzo Rawls MD [address] [place] [address] [address] [place] [phone] 08/22/2024 15:30 EDT Telemedicine [facility] Nephrology - [address] [phone] Jose L Whitley MD [address] [place], [place] [address]ab, [address] [place] [phone] documented as of this encounter Procedures Procedure Name Priority Date/Time Associated Diagnosis Comments FECAL BACTERIAL PATHOGENS BY PCR Routine 03/08/2023 15:00 EST documented in this encounter Results * FECAL BACTERIAL PATHOGENS BY PCR (03/08/2023 15:00 EST) Salmonella PCR Negative Negative 03/11/2023 16:49 EST [facility] Shigella/Enteroin vasive E. coli Negative Negative 03/11/2023 16:49 EST [facility] HN LAB CAMPYLOBACTER PCR Negative Negative 03/11/2023 16:49 EST [facility] Shiga Toxin PCR Negative Negative 16:49 EST [facility] Feces SPECIMEN FROM RECTUM / Unknown 03/08/2023 15:00 EST 03/10/2023 17:55 EST us Provider Outr Resulting Lab MICROBIOLOGY - GENER AL ORDERABLES Final Result Performing Organization Address City/State/[facility] Co de Phone Number [facility] [address] [place] [address] documented in this encounter Visit Diagnoses Not on filedocumented in this encounter Care Teams Grants Officer Relationship Specialty Start Date End Date Lynn Saavedra MD [address] [place] [address] PCP - General 07/07/22 04/26/23 Chary Ordoñez [address] [place] [phone] PCP - General Family Medicine - Primary Care 04/27/23 documented as of this encounter
--- OUTSIDE RECORDS SUMMARY | 2024-03-17 12:16 | XMS_ITS | Encounter Summary ---
Author Organization [facility] Address [address] [place] [address] Care Team Providers Care Quality Control Tech Raw Materials Name Role Phone Chary Ordoñez Primary Care Provider [phone] Reason for Referral * Laboratory Services (Routine/Next Available) - New Request Specialty Diagnoses / Procedures Referred By Contac t Referred To Contact Diagnoses Stage 3b chronic kidney disease ([facility]-CMS) Procedures PTH INTACT Josue Whitley MD [address] [place] [phone] Phone: tel: fax: Referral ID Status Reason Start Date Expiration Date V isits Requested Visits Authorized [id number] New Request 08/17/2023 3 3 * Laboratory Services (Routine/Next Available) - New Request Specialty Diagnoses / Procedures Referred By Contjosee t Referred To Contact Diagnoses Stage 3b chronic kidney disease ([facility]) Procedures COMPLETE BLOOD COUNT Josue Whitley MD [address] [address] Phone: tel: fax: Referral ID Status Reason Start Date Expiration Date V isits Requested Visits Authorized [id number] New Request 08/17/2023 1 1 * Laboratory Services (Routine/Next Available) - New Request Specialty Diagnoses / Procedures Referred By Savannah t Referred To Contact Diagnoses Stage 3b chronic kidney disease (HCC-CMS) Procedures BASIC METABOLIC PANEL (BMP) Josue Whitley MD [address] [place] [address], [facility] [address] [place] [address] Phone: tel: fax: Referral ID Status Reason Start Date Expiration Date V isits Requested Visits Authorized [id number] New Request 08/17/2023 6 6 Reason for Visit * Reason Comments CKD Follow-up 6 months' follow up on a 67-yo female with a history of??ERNESTINA on CKD in a??then??64-yo female with PMH??for??CKD, Crohn's Disease,??metabolic acidosis, nephrocalcinosis and RTA with hypomagnesemia.??Episodes of ERNESTINA noted??and the EMR data show that the recurring episodes of ERNESTINA were related to dehydration from diarrhea caused by the Crohn's Disease. Creatinine??from??01/07/23 was 1.71 mg/dL (eGFR=30). The latest creatinine??from??06/03/23 was lower at 1,59 mg/dL, improved from 1.96 on 05/20/23. Encounter Details Date Type Department Care Team (Late st Contact Info) Description 08/17/2023 15:00 EDT Telemedicine [facility] Nephrology - [address] [id number] Josue Whitley MD [address] [place] [address], [facility] [address] [place] [address] Stage 3b chronic kidney disease [...] Assessment Author No 04/16/2018 12:00 Sa karlie Monqiue RN documented as of this encounter Mental Status * Because of a physical, mental, or emotional condition, do you have serious difficulty concentrating, remembering, or making decisions? (5 years old or older) Answer Entry Date Author No 04/16/2018 12:00 Sa kalrie Monique RN documented in this encounter Patient Instructions * Patient Instructions* Josue Whitley MD - 08/17/2023 15:00 EDT Labs every 2 months. Return to clinic in 1 year. documented in this encounter Progress Notes * Josue Whitley MD - 08/17/2023 1500 EDT Home Phone Work Phone The concept of ???Telemedicine?? has been described to the patient.? Patient has been informed of the anticipated benefits and possible risks.? Patient understands the information provided regardingtelemedicine, has had the opportunity to ask questions about this information, and all questions have been answered to patient???s satisfaction. Patient consents for the use of telemedicine in his/her medical care and authorizes the transmission of any relevant medical information to providers and their staff involved in patient???s medical or mental health care. Patient understands that they maybe responsible for copays, deductible or coinsurance for this service. Today's visit was conducted by telephone: The location of the patient: Home (where patient lives) The location of the provider: Office The following staff and their role did participate in today's encounter visit: Josue Whitley MD I spent a total of 30 minutes with Zaira Collins as described in the progress note. NEPHROLOGY OFFICE FOLLOW UP VISIT NOTE SUBJECTIVE 6 months' follow up on a 67-yo female with a history of ERNESTINA on CKD in a then 64- yo female with PMH for CKD, Crohn's Disease, metabolic acidosis, nephrocalcinosis and RTA with hypomagnesemia. Episodesof ERNESTINA noted and the EMR data show that the recurring episodes of ERNESTINA were related to dehydration from diarrhea caused by the Crohn's Disease. Creatinine from 01/07/23 was 1.71 mg/dL (eGFR=30). The latest creatinine from 06/03/23 was lower at 1.59 mg/dL (eGFR=32), improved from 1.96 on 05/20/23. 08/13/2023 Chief Complaint Patient presents with CKD Follow-up 6 months' follow up on a 67-yo female with a history of ERNESTINA on CKD in a then 64- yo female with PMH for CKD, Crohn's Disease, metabolic acidosis, nephrocalcinosis and RTA with hypomagnesemia. Episodesof ERNESTINA noted and the EMR data show that the recurring episodes of ERNESTINA were related to dehydration from diarrhea caused by the Crohn's Disease. Creatinine from 01/07/23 was 1.71 mg/dL (eGFR=30). The latest creatinine from 06/03/23 was lower at 1,59 mg/dL, improved from 1.96 on 05/20/23. HPI As above. She reported being generally tired in July 2023 but she is better. She does not like the hotter weather. General - As above. Breathing - She has some allergies to pollen. Cough - None. New leg swelling - None. Weight - Stable. Blood Pressure - Not measured at home. Dizzy/Light-headed - Sometimes.She has not taken a fall. Appetite - Good. Nausea/Vomiting - Occasional nausea - not new. Diarrhea - Been pretty good. She is on loperamide PRN. Chest pain - None. Urinary symptoms - None. Nocturia - None. Pain - I have pain from head to toe. Hurts all the time. Constantly. She takes the occasional Tylenol and Ibuprofen. She was advised not to take Ibuprofen. Sleep - She sleeps well in the past 2-3 weeks. Medication changes - None. She had some blood work at [facility] - last week - we will manny these labs. Patient Active Problem List Diagnosis Chronic kidney disease, stage III (moderate) ([facility]) Tachycardia Hematuria Diarrhea with dehydration Nephrocalcinosis Renal tubular acidosis Nephrolithiasis Crohn's disease (HCC-CMS) Fibromyalgia Disruption of perineal wound Perineal fistula PONV (postoperative nausea and vomiting) Vaginal fistula Past Medical History: Diagnosis Date Anemia 05/16/2022 H/H = 13.4/41.2 Anomaly, cardiac tachycardia Chronic kidney disease, stage III (moderate) ([facility]) Crohn's disease ([facility]) Noted 11/11/22: s/p colectomy and small bowel [...] anus Renal tubular acidosis 04/29/2023 dx at [facility], after bowel surgery Seizures (HCC-CMS) 04/29/2023 Due to taking Chantix approx 6 years ago (~2017) Tachycardia 04/29/2023 Metoprolol, no current symptoms Vaginal fistula Wears dentures 04/29/2023 uppers Past Surgical History: Procedure Laterality Date COLON SURGERY HYSTERECTOMY ILEOSTOMY OR JEJUNOSTOMY 1983 RECTAL SURGERY anus removal 03/2018, debridement 10/2018 RECTAL SURGERY 10/11/2020 Placement of a draining Seton for fistula - Dr Ruiz RECTAL SURGERY 11/19/2022 fistula communicating to the vagina, seton placed, perianal abscess packed with iodoform - Dr Ruiz SMALL INTESTINE SURGERY TOTAL COLECTOMY Current Outpatient Medications Medication acetaminophen (TYLENOL) 325 mg tablet amitriptyline (ELAVIL) 10 mg tablet cholecalciferol, Vitamin D3, 25 mcg (1,000 unit) tablet cyanocobalamin (VITAMIN B12) 1,000 mcg/mL injection cyclobenzaprine (FLEXERIL) 5 mg tablet DULoxetine (CYMBALTA) 30 mg delayed release capsule estradioL (ESTRACE) 0.5 mg tablet FOLIC ACID ORAL ibuprofen (MOTRIN) 400 mg tablet loperamide (IMODIUM) 2 mg capsule Magnesium Oxide 500 mg capsule metoprolol SUCCinate (TOPROL-XL) 25 mg tablet ONDANSETRON HCL ORAL potassium chloride (MICRO-K) 10 mEq capsule sodium bicarbonate 650 mg tablet tocopheryl acetate (VITAMIN E) 45 mg (100 unit) capsule No current facility-administered medications for this visit. Allergies Allergen Reactions Chantix [Varenicline] SEIZURES Nsaids (Non-Steroidal Anti-Inflammatory Drug) Other (See Comments) Pt has chronic kidney disease / renal tubular acidosis Social History Tobacco Use Smoking status: Every Day Current packs/day: 0.25 Average packs/day: 0.3 packs/day for 46.8 years (11.7 ttl pk-yrs) Types: Cigarettes Start date: 10/10/1976 Smokeless tobacco: Never Tobacco comments: 5 cigarettes daily Substance Use Topics Alcohol use: Yes Comment: rarely Drug use: Not Currently Types: Marijuana Family History Problem Relation Age of Onset Pancreatic Cancer Mother REVIEW OF SYSTEMS A ten point ROS was performed and was negative except for pertinent positives in the HPI There were no vitals taken for this visit. Phone visit. Josue Whitley MD 08/13/2023 18:14 Lab Results Component Value Date K 4.1 09/30/2021 K 4.7 12/13/2018 NA 141 09/30/2021 NA 139 12/13/2018 CL 105 09/30/2021 CL 105 12/13/2018 CO2 29 09/30/2021 CO2 23 12/13/2018 ALKPHOS 110 11/24/2007 TBIL <0.5 11/24/2007 AST 37 11/24/2007 ALT 20 11/24/2007 LABALBU 5.0 (H) 11/24/2007 TP 8.4 (H) 11/24/2007 CREATININE 1.70 (H) 09/30/2021 CREATININE 1.38 (H) 12/13/2018 CALCGFR 33 (L) 09/30/2021 CALCGFR 41 (L) 12/13/2018 CALCIUM 9.3 09/30/2021 CALCIUM 9.7 12/13/2018 CALCCA 9.2 12/13/2018 CALCCA 8.7 11/24/2007 SERGLU 94 09/30/2021 SERGLU 87 12/13/2018 FASTFASTN2 No 12/13/2018 Lab Results Component Value Date WBC 7.66 12/13/2018 WBC 13.93 (H) 04/16/2018 RBC 4.03 12/13/2018 RBC 3.22 (L) 04/16/2018 HGB 12.9 12/13/2018 HGB 10.6 (L) 04/16/2018 HCT 39.5 12/13/2018 HCT 31.2 (L) 04/16/2018 MCV 98 12/13/2018 MCV 97 04/16/2018 MCH 32.0 12/13/2018 MCH 32.9 04/16/2018 MCHC 32.7 12/13/2018 MCHC 34.0 04/16/2018 RDWCV 13.1 12/13/2018 RDWCV 12.4 04/16/2018 RDWSD 46.5 12/13/2018 RDWSD 44.3 04/16/2018 PLT 371 12/13/2018 PLT 281 04/16/2018 No results found for: WBCU, RBCU, SQUAEPIU, RENEPIU, BACTERIA, CRYST, LABCAST, UACOMMENT, COMUAUCMI No results found for: COLOR, CLARITYU, GLUCOSEU, BILIRUBINUR, KETONES, LABSPEC, BLOODU, PHUR, PROTEINUA, UROBILINOGEN, NITRITE, LEUKESTER ASSESSMENT & PLAN Chronic kidney disease - 6 months' follow up on a 67-yo female with a history of ERNESTINA on CKD in a then 64-yo female with PMH for CKD, Crohn's Disease, metabolic acidosis, nephrocalcinosis and RTA withhypomagnesemia. Episodes of ERNESTINA noted and the EMR data show that the recurring episodes of ERNESTINA wererelated to dehydration from diarrhea caused by the Crohn's Disease. Creatinine from 01/07/23 was 1.71 mg/dL (eGFR=30). The latest creatinine from 06/03/23 was lower at 1.59 mg/dL (eGFR=32), improved from 1.96 on 05/20/23. The MA will manny the lab work from last week at [facility] Continue BMP every 2 months and return to clinic in 1 year. [place] Address [address] [place] [address]. The home address in [facility] was updated during this visit. Labs from 06/03/2023 - K 4.0, bicarb 32, albumin 3.6, Calcium 8.9 mg/dL. Metabolic acidosis - On Na bicarbonate. Bicarb was 32 in May 2023. Hematology - Hb was 13.4 in May 2022. Follow every 3-4 months. Metabolic bone disease - To recheck PTH and phosphorus. Magnesium was 1.9 in February 2022. Needs to be followed. documented in this encounter Miscellaneous Notes * Addendum Note - Josue Whitley MD - 08/17/2023 1500 EDTAddended by: JOSUE WHITLEY on: 08/17/2023 15:34 Modules accepted: Orders documented in this encounter Plan of Treatment Upcoming Encounters Date Type Department Care Team (Late st Contact Info) Description 04/07/2024 9:00 EST Office Visit [facility] Endocrinology - [facility] [address] [place] [address] Vincenzo Rawls MD [address] [facility] [address] [place] [address] 08/22/2024 15:30 EDT Telemedicine [facility] Nephrology - [facility] [address] [place], [place] [id number] Josue Whitley MD 1 [facility], [address] [place] [phone] Scheduled Orders Name Type Priority Associated Diagnoses Orde r Schedule BASIC METABOLIC PANEL (BMP) Lab Routine Stage 3b chronic kidney disease ([facility]) 2 months for 6 Occurrences starting 08/17/2023 until 08/16/2024 COMPLETE BLOOD COUNT Lab Routine Stage 3b chronic kidney disease ([facility]) 4 months for 3 Occurrences starting 08/17/2023 until 08/16/2024, 2 completed PTH INTACT Lab Routine Stage 3b chronic kidney disease ([facility]) 6 months for 3 Occurrences starting 08/17/2023 until 08/16/2024 NEPHROLOGY PROFILE (INCLUDES BUN, CREATININE, CALCULATED GFR, ELECTROLYTES, CALCIUM, PHOSPHORUS, ALBUMIN) Lab Routine Stage 3b chronic kidney disease ([facility]) 2 months for 6 Occurrences starting 08/17/2023 until 08/16/2024, 1 completed documented as of this encounter Results * NEPHROLOGY PROFILE (INCLUDES BUN, CREATININE, CALCULATED GFR, ELECTROLYTES, CALCIUM, PHOSPHORUS, ALBUMIN) (01/06/2024 10:44 EDT) Phosphorus, External 3.2 [facility] Albumin, External 3.0 g/dL [facility] BUN, External 32 mg/dL [facility] Chloride, External 105 mmol/L [facility] Creatinine, External 1.64 mg/dL [facility] Potassium, External 5.1 mmol/L [facility] GFR, Calculated, External 31 [facility] Calculated Calcium, External [facility] Calcium, External 8.7 mg/dL [facility] Sodium, External 141 mmol/L [facility] CO2, External 29 mmol/L [facility] Blood VENOUS BLOOD / Unknown 01/06/2024 10:44 EDT Josue Whitley MD CHEMISTRY & BLOOD GAS ORDERA BLES Final Result [facility] * COMPLETE BLOOD COUNT (01/06/2024 10:44 EDT) HCT, External 36 [facility] MCH, External 32.7 g/dL [facility] MCV, External 102 [facility] MCHC, External 32.0 g/dL [facility] Hemoglobin, External 11.4 % [facility] WBC, External 3.94 [facility] RBC, External 3.49 [facility] PLT, External 239 [facility] RDW-CV, External [facility] Blood VENOUS BLOOD / Unknown 01/06/2024 10:44 EDT Josue Whitley MD HEMATOLOGY & PF4 ORDERABLES Final Result Performing Organization Address City/[facility]/ZIP Co de Phone Number [facility] * COMPLETE BLOOD COUNT (12/10/2023 10:41 EDT) HCT, External 40 [facility] MCH, External 31.9 g/dL [facility] MCV, External 102 [facility] MCHC, External 31.2 g/dL [facility] Hemoglobin, External 12.5 % [facility] WBC, External 7.48 [facility] RBC, External 3.92 [facility] PLT, External 326 [facility] RDW-CV, External [facility] Blood VENOUS BLOOD / Unknown 12/10/2023 10:41 EDT Josue Whitley MD HEMATOLOGY & PF4 ORDERABLES Final Result [facility] documented in this encounter Visit Diagnoses Diagnosis Stage 3b chronic kidney disease (HCC-CMS)- Primary documented in this encounter Care Teams Quality Control Tech Raw Materials Relationship Specialty Start Date End Date Chary Ordoñez [address] [facility] [place] [phone] PCP - General Family Medicine - Primary Care 04/27/23 documented as of this encounter
--- OUTSIDE RECORDS SUMMARY | 2024-03-17 12:16 | XMS_ITS | Encounter Summary ---
Author Organization [facility] Address [address] [place] [address] Care Team Providers Care Underwriting Clerks Supervisor Name Role Phone Chary Ordoñez Primary Care Provider [phone] Encounter Details Date Type Department Care Team (Latest Contact Info) Description 04/29/2023 3:50 EST - 04/29/2023 23:59 EST Hospital Encounter [facility] Pre-Surgical Testing [address], [place] [phone] Discharge Disposition: Home or Self Care Social [...] Sign Reading Time Taken Comments Blood Pressure - - Pulse - - Temperature - - Respiratory Rate - - Oxygen Saturation - - Inhaled Oxygen Concentration - - Weight 37.2 kg (82 lb) 04/29/2023 1008 EST Height 149.9 cm (4' 11) 04/29/2023 1008 EST Body Mass Index 16.56 04/29/2023 1008 EST documented in this encounter [...] capsule Take 1 Capsule by mouth daily. acetaminophen (TYLENOL) 325 mg tablet Take 3 Tabs by mouth every 6 hours. Please alternate taking with ibuprofen so you are taking one or the other every three hours. 1 Tab 10/27/2018 4 ibuprofen (MOTRIN) 400 mg tablet Take 1 Tablet by mouth every 6 hours as needed for Pain. 04/30/2023 4 documented as of this encounter Discharge Disposition Disposition Code Departure Means Destination Home or Self Care documented in this encounter OR Notes * Preprocedure Instructions - Roxy Diamond RN - 04/29/2023 0350 EST Zaira Collins has been instructed as follows regarding medication administration for the day of the scheduled procedure. Date of Surgery: 04/30/2023 Instructions for Taking Medications Day of Surgery Medication Dose and frequency Last Dose Hold Day of Surgery Take Day of Surgery acetaminophen (TYLENOL) 325 mg tablet Take 3 Tabs by mouth every 6 hours. Please alternate taking with ibuprofen so you are taking one or the other every three hours. Patient taking differently: Take 1,000 mg by mouth every 6 hours. x amitriptyline (ELAVIL) 10 mg tablet Take 2 Tablets by mouth at bedtime. x cholecalciferol, Vitamin D3, 25 mcg (1,000 unit) tablet Take 1 Tablet by mouth daily. 04/29/2023 x cyanocobalamin (VITAMIN B12) 1,000 mcg/mL injection Inject 1 mL into the muscle every 28 days. 04/29/2023 x x cyclobenzaprine (FLEXERIL) 5 mg tablet TAKE ONE TABLET BY MOUTH THREE TIMES A DAY NEEDED x DULoxetine (CYMBALTA) 30 mg delayed release capsule Take 1 Capsule by mouth daily. x estradioL (ESTRACE) 0.5 mg tablet Take 0.5 Tablets by mouth daily. 1/2 tab daily 04/29/2023 x FOLIC ACID ORAL Take 1 Tab by mouth daily. 04/29/2023 x loperamide (IMODIUM) 2 mg capsule TAKE 1-2 CAPSULES BY MOUTH ONCE DAILY NEEDED FOR TO CONTROL OSTOMY OUTPUT x Magnesium Oxide 500 mg capsule Take 1 Capsule by mouth daily. 04/29/2023 x metoprolol SUCCinate (TOPROL-XL) 25 mg tablet Take 0.5 Tablets by mouth daily. x ONDANSETRON HCL ORAL Take 4 mg by mouth 3 times daily. x potassium chloride (MICRO-K) 10 mEq capsule Take 2 Capsules by mouth daily. 04/29/2023 x sodium bicarbonate 650 mg tablet Take 4 Tablets by mouth 3 times daily. 04/29/2023 x tocopheryl acetate (VITAMIN E) 45 mg (100 unit) capsule Take 1 Capsule by mouth daily. 04/29/2023 x Stop all vitamins and supplements NOW. Nonsteroidal anti-inflammatories (NSAIDS; i.e. ibuprofen, naproxen, indomethacin, ketorolac, Motrin) stop NOW. Acetaminophen (Tylenol) can be taken prior to surgery if needed. Preparing for surgery: Fasting- Follow the eating and drinking instructions below unless otherwise instructed by your surgeon STOP all solid FOOD and LIQUIDS Containing Fats, including Milk, at midnight the night before surgery You May have FAT FREE CLEAR liquids until 2 hours before your scheduled time to arrive to the hospital on the day of surgery. Acceptable clear liquids include Water, apple juice, and sports drinks (Gatorade?? or Powerade?? avoid red and purple). On the day of your procedure, no gum, mints, lozenges or hard candy. Children under 1 year of age may have breast milk up to 4 hours and formula up to 6 hours before their procedure. Pedialyte?? is also an acceptable clear liquid for children. Safety Infection prevention Shower with an ANTIBACTERIAL SOAP the night before surgery and the morning of surgery. If you were given scrub sponges, use those also, scrubbing well over the area indicated by your surgeon. Do not shave your surgical site for 3 days prior to surgery. Protect Surgical Site from injury such as cuts, bruising or triplett After your morning shower avoid any personal care products such as creams, lotion, powders, deodorant, makeup, hairspray, perfumes or colognes. Ride home We require you have a responsible Adult to drive you home after surgery or to accompany you in getting home via Taxi or Bus Your Family Member/Ride Home should stay at the hospital during the procedure until you are discharged. If your ride can't stay in the hospital, they still need to come in to pick you up to assist with medication sampler pickup from pharmacy, review of discharge instructions and surgical consult. We ask that your ride stay within 15 minutes of the hospital for sampler pickup. CPAP/BiPAP Bring your CPAP or BiPAP machine in with you on the day of your surgery. Nail marshallese and Jewelry Remove all finger nail marshallese and makeup before surgery Remove all jewelry including rings and Body Piercings before coming in for Surgery. Glasses and Contacts Wear glasses on the Day of surgery. For eye surgeries avoid contacts for 7 days prior to surgery, unless otherwise instructed by your surgeon. Full beards Shaving is optional, certain aspects of the anesthetic management can be made easier without a fullbeard. Smoking Stop smoking tobacco and marijuana prior to surgery as much as possible with a minimum of 24 hours prior to surgery. Medications Inhalers Bring your inhalers in with you on the day of your surgery. Bowel cleansing Follow the instructions for bowel cleansing given to you by your surgeon. Once you start, drink lots of clear liquids, stopping them at the time your surgeon told you to stop. It would be best to stay at home while doing the bowel cleansing. Legal Guardianship BRING Proof of Guardianship on Day of Surgery. Legal Guardian is to be available on the Day of Surgery by Telephone if not physically present on the Day of Surgery. Surgical and/or other consents will be signed by Legal Guardian prior to the Day of Surgery if possible. Call your surgeon IF: You become ill before your surgery. You have any new skin problems near the area where your surgery will be, such as a rash, blister, or infection. You have any questions. Your surgeon may have given you other instructions to prepare for surgery. Please follow these and if you have questions call your surgeon's office. Day of surgery Identification Please bring a photo ID, insurance card and any other information needed for your surgery. Arrival General Arrival Time is 2 hours prior to your surgery time. Medications Take as directed above with a small sip of water on day of surgery. Bring a list of medications you take on the day of surgery. Leave medications at home. Clothing Wear casual, loose fitting and comfortable clothing. We recommend you wear/bring inexpensive (avoidsilks, etc.) clothing on Day of Surgery. For arm and hand surgery wear a zip up or button up shirt with short sleeves. For eye surgery, do not wear a shirt that pulls over the head unless it has a wide neck opening. Bring a hat with a visor or a pair of sunglasses to wear home after surgery. Medical Devices Bring any medical devices that you would normally use during the course of your day. These items include, but are not limited to: insulin pumps, mobility aids, CPAP. Valuables Bring only money you may need for you hospital co-pay and to purchase any prescriptions on the way home. Let the person driving you home hold you're your money while you are in surgery. Leave jewelry at home Leave contact lenses at home. Wear your eye glasses and bring your eye glass case. Leave valuable items at home. Ask a family member to bring them in after you have been admitted to the inpatient unit if possible. Equipment Remember to bring pillows for the car ride home to elevate your arm or leg (for arm/leg surgery). Bring Crutches if needed. Use the Volumetric Electrical Development Engineer given to you by your surgeon or nurse. Starting 2 weeks prior to your surgery use it 2 times a day, 10 times each use. Bring it with you on the day of your surgery. Visitation Per our Welcoming Policy ???Unit nursing staff may have to ask patients and families to limit numbers of family members at the bedside when it impacts the environment of care?? Typically two visitors are allowed in the Preop and Recovery areas. Bring plastic bags and paper towels in the car for the Trip Home. Contact information Patient/Family given Preop Contact Numbers appropriate to campus of surgery. For Day of Surgery: [facility] [place]: [phone]; [facility]; [phone]. Prior to Day of Surgery call: [phone]. Pre-op toll Free Number . More information can also be found on our website: [email or web address] documented in this encounter Plan of Treatment Upcoming Encounters Date Type Department Care Team (Late st Contact Info) Description 04/07/2024 9:00 EST Office Visit [facility] Endocrinology - [address] [address] Vincenzo Rawls MD [address] [facility] [address] [place] [phone] 08/22/2024 15:30 EDT Telemedicine [facility] Nephrology - [facility] [address] [place], [place] [address] Jose L Whitley MD [address] [place] [address], [address] [place] [phone] documented as of this encounter Visit Diagnoses Not on filedocumented in this encounter Discontinued Medications Medication Sig Discontinue Reason Start Date End Da te calcium carbonate/vitamin D3 (VITAMIN D-3 ORAL) Take by mouth. Therapy completed 04/29/2023 ergocalciferol (DRISDOL; VITAMIN D2) 50,000 unit capsule Take 50,000 Units by mouth every 7 days. Therapy completed 04/29/2023 GINKGO BILOBA ORAL Take by mouth every morning. Therapy completed 04/29/2023 GINSENG ORAL Take by mouth every morning. Therapy completed 04/29/2023 traMADol (ULTRAM) 50 mg tablet Take 50 mg by mouth 2 times daily. Therapy completed 04/29/2023 traMADol (ULTRAM) 50 mg tablet Take 1-2 Tablets by mouth every 6 hours as needed for Pain. Daily Max: 400 mg Therapy completed 11/21/2022 04/29/2023 documented as of this encounter Care Teams Underwriting Clerks Supervisor Relationship Specialty Start Date End Date Lou Ordoñezgail [address] [phone] PCP - General Family Medicine - Primary Care 04/27/23 documented as of this encounter
--- OUTSIDE RECORDS SUMMARY | 2024-03-17 12:16 | XMS_ITS | Encounter Summary ---
Author Organization [facility] Address [address] [place] [address] Care Team Providers Care Automotive Drivability Technician Name Role Phone Lynn Saavedra MD Primary Care Provider [phone] Encounter Details Date Type Department Care Team (Late st Contact Info) Description 04/01/2023 Abstract [facility] Nephrology - [address] [phone] Jose L Whitley MD 1 [facility], [address] [place] [address] Acute renal failure, unspecified acute [...] 04/07/2024 9:00 EST Office Visit [facility] Endocrinology - [address] [phone] Vincenzo Rawls MD [address] [place] [address] [address] [place] [address] 08/22/2024 15:30 EDT Telemedicine [facility] Nephrology - [address] [phone] Jose L Whitley MD [address] [place] [address], [address] [place] [phone] documented as of this encounter Procedures Procedure Name Priority Date/Time Associated Diagnosis Comments COMPREHENSIVE METABOLIC PANEL (CMP) Routine 03/31/2023 8:59 EST Acute renal failure, unspecified acute renal failure type (HCC-CMS) documented in this encounter Results * COMPREHENSIVE METABOLIC PANEL (CMP) (03/31/2023 8:59 EST) GFR, Calculated, External 31 [facility] Glucose, Serum, External 155 mg/dL [facility] Albumin, External 3.1 g/dL [facility] Total Alkaline Phosphatase, External 200 [facility] ALT, External 33 [facility] AST, External 26 U/L [facility] BUN, External 29 mg/dL [facility] Calculated Calcium, External [facility] Calcium, External 9.1 mg/dL [facility] Chloride, External 102 mmol/L [facility] CO2, External 27 mmol/L [facility] Creatinine, External 1.64 mg/dL [facility] Fasting?, External [facility] Potassium, External 4.5 mmol/L [facility] Sodium, External 135 mmol/L [facility] Total Protein, External 7.5 [facility] Bilirubin, Total, External 0.3 [facility] Blood VENOUS BLOOD / Unknown 03/31/2023 8:59 EST us Jose L Whitley MD CHEMISTRY & BLOOD GAS ORDERA BLES Final Result [facility] documented in this encounter Visit Diagnoses Diagnosis Acute renal failure, unspecified acute renal failure type (HCC-CMS)- Primary documented in this encounter Care Teams Automotive Drivability Technician Relationship Specialty Start Date End Date Lynn Savaedra MD [address] [place] [phone] PCP - General 07/07/22 04/26/23 documented as of this encounter
--- OUTSIDE RECORDS SUMMARY | 2024-03-17 12:16 | XMS_ITS | Encounter Summary ---
Author Organization [facility] Address [address] [place] [address] Care Team Providers Care Divisional Storekeeper Name Role Phone Chary Ordoñez Primary Care Provider [phone] Reason for Visit * Auth/Cert (Routine) Specialty Diagnoses / Procedures [facility] Referred To Contact Diagnoses Vaginal fistula Procedures GA PLACEMENT SETON Insertion, seton Referral ID Status Reason Start Date Expiration Date Visits Re quested Visits Authorized [id number] 1 1 Encounter Details Date Type Department Care Team (Late st Contact Info) Description 04/30/2023 9:45 EST Anesthesia Event [facility] [place] [address] [place], [place] [phone] Bull Potter MD [address] [facility], [address] [place] [address] Anesthesia Record Procedure Summary Procedure Name Responsible Anesthesiologist Anesthesia Start Time Anesthesia Stop Time Insertion, seton (Anus) Bull Potter MD 04/30/23 0945 04/30/23 1023 Events Date Time Event Comment 04/30/2023 0945 An Start The patient was re-evaluated immediately before moderate or deep sedation use, before anesthesia induction, or before the anesthesia procedure. 0945 An Start Data 0950 Anesthesia Ready 1018 an stop data 1023 An Stop 1041 Handoff to RN I completed my handoff to the receiving nurse during which we: 1. Identified the patient 2. Identified the responsible provider 3. Reviewed the pertinent medical history 4. Discussed the surgical course 5. Reviewed intra-op anesthesia management and issues during anesthesia 6. Set expectations for post-procedure period 7. Allowed opportunity for questions and acknowledgement of understanding. Meds Name Total fentanyl citrate (PF) injection 50 mcg lidocaine 2% (PF) injection glass vial 3 0 mg midazolam 1 mg/mL 2 mL vial 1 mg propOFol (DIPRIVAN) injection 86,600 mcg lactated ringers (LR) infusion 400 mL * Agents Name O2 N2O Air Aux O2 flow * Blood No blood administrations on file. Lines, Drains, and Airways Type Details Placement Removal Peripheral IV 04/30/23; 0915; 04/17 05/09; 20; 1.25; B Julien Introcan; Left, Posterior; Forearm; Inserted by RN; 1; None; 2% Chlorhexidine with IPA; 04/30/23; 1130; Discharged 04/30/23 0915 by Nicolasa Mosher RN 04/30/23 1130 by Marybeth Yeung RN documented in this encounter Social History Tobacco Use Types Packs/Day Years [...] karlie Monique RN documented in this encounter OR Notes * Anesthesia Postprocedure Evaluation - Marybeth Seymour AA - 04/30/2023 1023 EST Patient: Zaira Collins Vital signs were reviewed with the recovery nurse. [facility] Vitals Value Taken Time BP 147/96 04/30/23 1023 Temp 36.3 04/30/23 1023 Resp 17 04/30/23 1022 Pulse From Oximetry 100 BPM 04/30/23 1022 SpO2 100 % 04/30/23 1022 Heart Rate 98 BPM 04/30/23 1022 Vitals shown include unvalidated device data. Last Pain Score - Numeric Pain Level (Scale 1-10): 5 Type of Anesthesia - MAC Anesthesia Post Evaluation Level of consciousness: awake Temperature status: normothermia Respiratory status: airway patent and nasal cannula Cardiovascular status: acceptable and stable Hydration status: adequate Nausea/Vomiting: none Pain management: adequate Post-Op Assessment: patient tolerated procedure well with no complications Patient participation: able to participate Anesthesia Complications: No apparent anesthesia complications * Anesthesia Preprocedure Evaluation - Bull Potter MD - 04/30/2023 0916 EST Anesthesia Preprocedure Evaluation Patient Medical History, including Anesthesia History reviewed. Chart and Nursing Notes reviewed, including NPO status and Medication History. Additional ROS/History Findings: Allergies Allergen Reactions Chantix [Varenicline] SEIZURES Review of Systems Constitutional: Negative. Respiratory: Negative. Cardiovascular: Negative. Gastrointestinal: Positive for abdominal pain. Musculoskeletal: Positive for back pain. Endo/Heme/Allergies: Negative. Past Medical History: Diagnosis Date Anemia 05/16/2022 H/H = 13.4/41.2 Anomaly, cardiac tachycardia Chronic kidney disease, stage III (moderate) ([facility]) Crohn's disease (HCC-CMS) Noted 11/11/22: s/p colectomy [...] anus Renal tubular acidosis 04/29/2023 dx at [facility], after bowel surgery Seizures ([facility]) 04/29/2023 Due to taking Chantix approx 6 years ago (~2018) Tachycardia 04/29/2023 Metoprolol, no current symptoms Vaginal fistula Wears dentures 04/29/2023 uppers Relevant Problems Anesthesia (+) PONV (postoperative nausea and vomiting) /Renal (+) Chronic kidney disease, stage III (moderate) ([facility]) (+) Nephrocalcinosis (+) Nephrolithiasis (+) Renal tubular acidosis Physical Exam Airway Mallampati: III TM distance: >3 FB Neck ROM: full Cardiovascular - normal exam Dental Comments: edentulous Pulmonary - normal exam Abdominal Anesthesia Plan ASA 3 Anesthesia Type - MAC Block for post-op pain? No Anesthesia plan and risks discussed. Informed consent obtained from patient. PAT Note Notes from 03/31/23 through 04/30/23 No notes of this type exist for this encounter. documented in this encounter Plan of Treatment Upcoming Encounters Date Type Department Care Team (Late st Contact Info) Description 04/07/2024 9:00 EST Office Visit [facility] Endocrinology - [facility] [address] [place] [address] Vincenzo Rawls MD 62 [facility] [address] [place] [address] 08/22/2024 15:30 EDT Telemedicine [facility] Nephrology - [address] [phone] Jose L Whitley MD [address] [place] [address] Rehab, Level [address] [place] [phone] documented as of this encounter Visit Diagnoses Not on filedocumented in this encounter Administered Medications Inactive Administered Medications - up to 3 most recent administrations Medication Order MAR Action Action Date Dose Rate Site fentaNYL citrate (PF) injection intravenous, PRN, Starting on Jazlyn 04/30/23 at 0950, Until Jazlyn 04/30/23 at 1023, Routine, Anesthesia Intraprocedure Given 04/30/2023 9:50 EST 50 mcg lactated ringers (LR) infusion 25 mL/hr, intravenous, CONTINUOUS, Starting on Jazlyn 04/30/23 at 0930, Until Jazlyn 04/30/23 at 1404, Routine, Preprocedure Continued by Anesthesia 04/30/2023 9:45 EST 25 mL/hr New Bag 04/30/2023 9:19 EST 25 mL/hr 25 mL/hr lidocaine (PF) 20 mg/mL (2 %) injection intravenous, PRN, Starting on Jazlyn 04/30/23 at 0952, Until Jazlyn 04/30/23 at 1023, Routine, Anesthesia Intraprocedure Given 04/30/2023 9:52 EST 30 mg midazolam (PF) (VERSED) injection intravenous, PRN, Starting on Jazlyn 04/30/23 at 0950, Until Jazlyn 04/30/23 at 1023, Routine, Anesthesia Intraprocedure Given 04/30/2023 9:50 EST 1 mg propOFol (DIPRIVAN) injection intravenous, PRN, Starting on Jazlyn 04/30/23 at 0952, Until Jazlyn 04/30/23 at 1023, Routine, Anesthesia Intraprocedure Given 04/30/2023 9:58 EST 20 mg New Bag 04/30/2023 9:55 EST 100 mcg/kg/min 21.96 mL/hr Given 04/30/2023 9:52 EST 30 mg documented in this encounter Care Teams Divisional Storekeeper Relationship Specialty Start Date End Date Chary Ordoñez [address] [phone] PCP - General Family Medicine - Primary Care 04/27/23 documented as of this encounter
--- OUTSIDE RECORDS SUMMARY | 2024-03-17 12:16 | XMS_ITS | Encounter Summary ---
Author Organization [facility] Address [address] [place] [address] Care Team Providers Care Planting Material Unloader Name Role Phone Chary Ordoñez Primary Care Provider [phone] Reason for Referral * (Routine/Next Available) - Receiving Office to Obtain Authorization Specialty Diagnoses / Procedures Referred By Contac t Referred To Contact Procedures CT OUTSIDE IMAGES ABDOMEN PELVIS Imaging, External Referral ID Status Reason Start Date Expiration Date Visits Requested Visits Authorized [id number] Receiving Office to Obtain Authorization 09/23/2023 1 1 Reason for Visit * (Routine/Next Available) - Receiving Office to Obtain Authorization Specialty Diagnoses / Procedures Referred By Contac t Referred To Contact Procedures CT OUTSIDE IMAGES ABDOMEN PELVIS Imaging, External Referral ID Status Reason Start Date Expiration Date Visits Requested Visits Authorized [id number] Receiving Office to Obtain Authorization 09/23/2023 1 1 Encounter Details Date Type Department Care Team (Latest Contact Info) Description 09/22/2023 - 09/22/2023 23:59 EDT Hospital Encounter [facility] Secondary Reads [place] Discharge Disposition: Home [...] Info) Description 04/07/2024 9:00 EST Office Visit [facility] Endocrinology - [address] [address] Vincenzo Rawls MD [address] [place] [address] [address] [place] [address] 08/22/2024 15:30 EDT Telemedicine [facility] Nephrology - [address] [phone] Jose L Whitley MD [address] [place] [address], [address] [place] [phone] documented as of this encounter Procedures Procedure Name Priority Date/Time Associated Diagnosis Comments CT OUTSIDE IMAGES ABDOMEN PELVIS Routine 09/22/2023 13:59 EDT documented in this encounter Results * CT OUTSIDE IMAGES ABDOMEN PELVIS (09/22/2023 13:59 EDT) Narrative 09/23/2023 13:59 EDT This is a non-reportable exam. us External Imaging IMG OTHER IMAGING ORDERABLES Fi nal Result documented in this encounter Visit Diagnoses Not on filedocumented in this encounter Care Teams Planting Material Unloader Relationship Specialty Start Date End Date Chary [facility] [address] [place] [phone] PCP - General Family Medicine - Primary Care 04/27/23 documented as of this encounter
--- OUTSIDE RECORDS SUMMARY | 2024-03-17 12:16 | XMS_ITS | Encounter Summary ---
Author Organization [facility] Address [address] [place] [address] Care Team Providers Care Personnel Consultant Name Role Phone Lynn Saavedra MD Primary Care Provider [phone] Chary Ordoñez Primary Care Provider [phone] Encounter Details Date Type Department Care Team (Late st Contact Info) Description 03/10/2023 Lab Requisition [facility] Pathology & Laboratory Medicine - [address] [address] Outr Resulting Lab, Provider Social History Tobacco [...] 04/07/2024 9:00 EST Office Visit [facility] Endocrinology - [address] [address] Vincenzo Rawls MD [address] [place] [address] [address] [place] [phone] 08/22/2024 15:30 EDT Telemedicine [facility] Nephrology - [address] [address] Jose L Whitley MD [address] [place], [place] [address]ab, Level 2 [place] [phone] documented as of this encounter Procedures Procedure Name Priority Date/Time Associated Diagnosis Comments OVA/PARASITE EXAM Routine 03/08/2023 15: 00 EST documented in this encounter Results * OVA/PARASITE EXAM (03/08/2023 15:00 EST) Parasite No ova and parasites seen. 03/11/2023 12:30 EST [facility] Feces SPECIMEN FROM RECTUM / Unknown 03/08/2023 15:00 EST 03/10/2023 17:55 EST Narrative [facility] - 03/11/2023 12:30 EST (If Cryptosporidium, Cyclospora, or Microsporidium are suspected, specific tests must be requested.) Single negative specimen does not rule out the possibility of a parasitic infection. us Provider Outr Resulting Lab MICROBIOLOGY - GENER AL ORDERABLES Final Result [facility] [address] [place] [address] documented in this encounter Visit Diagnoses Not on filedocumented in this encounter Care Teams Personnel Consultant Relationship Specialty Start Date End Date Lynn Saavedra MD [address] [place] [address] PCP - General 07/07/22 04/26/23 Chary Ordoñez [address] [place] [address] PCP - General Family Medicine - Primary Care 04/27/23 documented as of this encounter
--- OUTSIDE RECORDS SUMMARY | 2024-03-17 12:16 | XMS_ITS | Encounter Summary ---
Author Organization [facility] Address [address] [place] [address] Care Team Providers Care Supplier Specialist Name Role Phone Chary Ordoñez Primary Care Provider [phone] Reason for Visit * Reason Onset Date Comments Follow-up 10/23/2023 Encounter Details Date Type Department Care Team (Late st Contact Info) Description 10/23/2023 Telephone [facility] Nephrology - [address] [address] Jose L Whitley MD 1 [facility], Level 2 [place] [address] Follow-up Social History Tobacco Use Types [...] Encounter - Jose L Whitley MD - 10/23/2023 1432 EDT History of fluctuating creatinine. It was 1.92 on 10/22/2023; was 1.81 in July 2023 and 1.59 in May 2023. To repeat Nephrology Profile in 2 weeks. This has been ordered. RN to call patient. documented in this encounter Plan of Treatment Upcoming Encounters Date Type Department Care Team (Late st Contact Info) Description 04/07/2024 9:00 EST Office Visit [facility] Endocrinology - [facility] [address] [place] [address] Vincenzo Rawls MD 62 [facility] [address] [place] [address] 08/22/2024 15:30 EDT Telemedicine [facility] Nephrology - [address] [phone] Jose L Whitley MD 1 [facility], Level 2 [place] [phone] documented as of this encounter Visit Diagnoses Not on filedocumented in this encounter Care Teams Supplier Specialist Relationship Specialty Start Date End Date Chary Ordoñez [address] [place] [phone] PCP - General Family Medicine - Primary Care 04/27/23 documented as of this encounter
--- OUTSIDE RECORDS SUMMARY | 2024-03-17 12:16 | XMS_ITS | Encounter Summary ---
Author Organization [facility] Address [address] [place] [address] Care Team Providers Care Therapeutic Assistant Name Role Phone Chary Ordoñez Primary Care Provider [phone] Reason for Visit * Reason Onset Date Comments Other 04/27/2023 Encounter Details Date Type Department Care Team (Late st Contact Info) Description 04/27/2023 Telephone [facility] General Surgery - [address] [address] Ryan Ruiz MD [address] [place] [address], Level 5 [place] [address] Other Social History Tobacco Use Types Packs/Day Years [...] encounter Miscellaneous Notes * Telephone Encounter - Maude Tubbs - 04/27/2023 1809 EST I spoke with Cynthia and told her that the time of her surgery with Dr. Ryan Keller on 04/30 is at 9:45 arriving 7:45 and NPO after 5:00 am. documented in this encounter Plan of Treatment Upcoming Encounters Date Type Department Care Team (Late st Contact Info) Description 04/07/2024 9:00 EST Office Visit [facility] Endocrinology - [address] [address] Vincenzo Rawls MD [address] [place] [address] [address] [place] [address] 08/22/2024 15:30 EDT Telemedicine [facility] Nephrology - [address] [place] [address] [place], [place] [address] Jose L Whitley MD 1 [facility], Level 2 [place] [phone] documented as of this encounter Visit Diagnoses Not on filedocumented in this encounter Care Teams Therapeutic Assistant Relationship Specialty Start Date End Date Chary Ordoñez [address] [place] [address] PCP - General Family Medicine - Primary Care 04/27/23 documented as of this encounter
--- OUTSIDE RECORDS SUMMARY | 2024-03-17 12:16 | XMS_ITS | Encounter Summary ---
Author Organization [facility] Address [address] [place] [address] Care Team Providers Care Recreational Director Name Role Phone Chary Ordoñez Primary Care Provider [phone] Encounter Details Date Type Department Care Team (Late st Contact Info) Description 05/21/2023 Abstract [facility] Nephrology - [address] [address] Jose L Whitley MD 1 [facility], Level 2 [place] [address] Social History Tobacco Use Types Packs/Day Years [...] Info) Description 04/07/2024 9:00 EST Office Visit [facility] Endocrinology - [address] [phone] Vincenzo Rawls MD [address] [place] [address] [address] [place] [address] 08/22/2024 15:30 EDT Telemedicine [facility] Nephrology - [address] [address] Jose L Whitley MD 1 [facility], Level 2 [place] [address] documented as of this encounter Visit Diagnoses Not on filedocumented in this encounter Care Teams Recreational Director Relationship Specialty Start Date End Date Chary Ordoñez [address] [place] [address] PCP - General Family Medicine - Primary Care 04/27/23 documented as of this encounter
--- OUTSIDE RECORDS SUMMARY | 2024-03-17 12:16 | XMS_ITS | Encounter Summary ---
Author Organization [facility] Address [address] [place] [address] Care Team Providers Care Automatic Dry Starch Operator Name Role Phone Chary Ordoñez Primary Care Provider [phone] Reason for Visit * Reason Onset Date Comments Referral Request 04/29/2023 Encounter Details Date Type Department Care Team (Late st Contact Info) Description 04/29/2023 Telephone [facility] - [address] [address] Brent Jaime MD Referral Request Social History Tobacco Use Types Packs/Day Years [...] encounter Miscellaneous Notes * Telephone Encounter - Bárbara Su RN - 05/01/2023 0914 EST This RN attempted to reach [facility] and was on hold for 20 minutes. Spoke with patient to relay that Dr. Jaime did place the DXA order to be done at [facility]. This RN refaxed the order to [facility]. Bárbara Su RN * Telephone Encounter - AliyahElvia - 04/29/2023 1326 EST Endocrinology Incoming Call Reason for call: DXA Referral to be sent to [facility] Patient calling again, states she would like to have DXA Bone Density Scan done at [facility] and asking for referral to be sent there Document Request Type of document needed: Referral Location to be sent: [facility] Method of delivery (and fax number, if applicable): Fax to [facility] Need by date: 04/19/23 If document is needed within 7 days, send HIGH Priority to [facility] Endocrine Nurse Pool. Otherwise, send Routine Priority to [facility] Endocrine Nurse Pool Next Appointment: Visit date not found Last Office Visit: 04/20/2023 Brent Jaime MD Last Telehealth Encounter: Visit date not found documented in this encounter Plan of Treatment Upcoming Encounters Date Type Department Care Team (Late st Contact Info) Description 04/07/2024 9:00 EST Office Visit [facility] Endocrinology - [facility] [address] [place] [address] Vincenzo Rawls MD 62 [facility] [address] [place] [phone] 08/22/2024 15:30 EDT Telemedicine [facility] Nephrology - [facility] 1 [place], [place] [address] Jose L Whitley MD 1 [facility], Level 2 [place] [phone] documented as of this encounter Visit Diagnoses Not on filedocumented in this encounter Care Teams Automatic Dry Starch Operator Relationship Specialty Start Date End Date Chary Ordoñez [address] [place] [phone] PCP - General Family Medicine - Primary Care 04/27/23 documented as of this encounter
--- OUTSIDE RECORDS SUMMARY | 2024-03-17 12:16 | XMS_ITS | Encounter Summary ---
Author Organization [facility] Address [address] [place] [address] Care Team Providers Care Hog Pusher Name Role Phone Lynn Saavedra MD Primary Care Provider [phone] Chary Ordoñez Primary Care Provider [phone] Encounter Details Date Type Department Care Team (Late st Contact Info) Description 03/10/2023 Lab Requisition [facility] Pathology & Laboratory Medicine - [address] [address] Outr Resulting Lab, Provider Social History Tobacco [...] 04/07/2024 9:00 EST Office Visit [facility] Endocrinology - [address] [address] Vincenzo Rawls MD [address] [place] [address] [address] [place] [phone] 08/22/2024 15:30 EDT Telemedicine [facility] Nephrology - [address] [address] Jose L Whitley MD [address] [place], [place] [address], Level 2 [place] [phone] documented as of this encounter Procedures Procedure Name Priority Date/Time Associated Diagnosis Comments GIARDIA AND CRYPTOSPORIDIUM ANTIGENS Routine 03/08/2023 15:00 EST documented in this encounter Results * GIARDIA AND CRYPTOSPORIDIUM ANTIGENS (03/08/2023 15:00 EST) Giardia and Cryptosporidium Cryptosporidium Antigen Neg and Giardia Antigen Neg Cryptosporidium Antigen Neg and Giardia Antigen Neg 3 11:13 EST [facility] Feces SPECIMEN FROM RECTUM / Unknown 03/08/2023 15:00 EST 03/10/2023 17:55 EST us Provider Outr Resulting Lab MICROBIOLOGY - GENER AL ORDERABLES Final Result [facility] [address] [place] [address] documented in this encounter Visit Diagnoses Not on filedocumented in this encounter Care Teams Hog Pusher Relationship Specialty Start Date End Date Lynn Saavedra MD [address] [place] [address] PCP - General 07/07/22 04/26/23 Chary Ordoñez [address] [place] [address] PCP - General Family Medicine - Primary Care 04/27/23 documented as of this encounter
--- OUTSIDE RECORDS SUMMARY | 2024-03-17 12:16 | XMS_ITS | Encounter Summary ---
Author Organization [facility] Address [address] [place] [address] Care Team Providers Care Poultry Boner Name Role Phone Chary Ordoñez Primary Care Provider [phone] Reason for Visit * Reason Onset Date Comments Labs Only 05/22/2023 Follow-up 05/22/2023 Returning Call 05/22/2023 Encounter Details Date Type Department Care Team (Late st Contact Info) Description 05/22/2023 Telephone [facility] Nephrology - [address] [phone] Juwan Peres, RN [address] [place] [address] Labs Only; Follow-up; Returning Call Social History Tobacco Use Types Packs/Day Years [...] encounter Miscellaneous Notes * Telephone Encounter - Pooja Garcia - 05/25/2023 1135 EDT Pt called back and I let her know to repeat Neph profile 10 - 14 days She said she would and thanks * Telephone Encounter - Juwan Peres RN - 05/22/2023 1022 EST 05/22/23 1030 Called and LMOM relaying attached message from Dr Peres: Serum creatinine from 1 day ago was higher at 1.96 mg/dl. Repeat nephrology profile in 10-14 days -ordered. Please call the patient to get this test completed. JUWAN PERES RN documented in this encounter Plan of Treatment Upcoming Encounters Date Type Department Care Team (Ramírez Contact Info) Description 04/07/2024 9:00 EST Office Visit [facility] Endocrinology - [facility] [address] [place] [address] Vincenzo Rawls MD 62 [facility] [address] [place] [phone] 08/22/2024 15:30 EDT Telemedicine [facility] Nephrology - [facility] 1 [place], [place] [phone] Jose L Whitley MD 1 [facility], Level 2 [place] [phone] documented as of this encounter Visit Diagnoses Not on filedocumented in this encounter Care Teams Poultry Boner Relationship Specialty Start Date End Date Chary Ordoñez [address] [place] [phone] PCP - General Family Medicine - Primary Care 04/27/23 documented as of this encounter
--- OUTSIDE RECORDS SUMMARY | 2024-03-17 12:16 | XMS_ITS | Encounter Summary ---
Author Organization [facility] Address [address] [place] [address] Care Team Providers Care Remarketing Rep Name Role Phone Chray Ordoñez Primary Care Provider Encounter Details Date Type Department Care Team (Late st Contact Info) Description 05/21/2023 Abstract [facility] Nephrology - [address] [address] Jose L Whitley MD 1 [facility], Level 2 [place] [address] Acute renal failure, unspecified acute [...] Description 04/07/2024 9:00 EST Office Visit [facility] Endocrinology - [address] [phone] Vincenzo Rawls MD [address] [place] [address] [address] [place] [address] 08/22/2024 15:30 EDT Telemedicine [facility] Nephrology - [address] [address] Jose L Whitley MD [address] [place] [address], Level 2 [place] [phone] documented as of this encounter Procedures Procedure Name Priority Date/Time Associated Diagnosis Comments COMPREHENSIVE METABOLIC PANEL (CMP) Routine 05/20/2023 10:37 EST Acute renal failure, unspecified acute renal failure type (HCC-CMS) documented in this encounter Results * COMPREHENSIVE METABOLIC PANEL (CMP) (05/20/2023 10:37 EST) GFR, Calculated, External 26 [facility] Glucose, Serum, External 84 mg/dL [facility] Albumin, External 3.5 g/dL [facility] Total Alkaline Phosphatase, External 130 [facility] ALT, External 41 [facility] AST, External 40 U/L [facility] BUN, External 46 mg/dL [facility] Calculated Calcium, External [facility] Calcium, External 8.4 mg/dL [facility] Chloride, External 99 mmol/L [facility] CO2, External 33 mmol/L [facility] Creatinine, External 1.96 mg/dL [facility] Fasting?, External [facility] Potassium, External 4.5 mmol/L [facility] Sodium, External 138 mmol/L [facility] Total Protein, External 7.4 [facility] Bilirubin, Total, External 0.3 [facility] Blood VENOUS BLOOD / Unknown 05/20/2023 10:37 EST us Jose L Whitley MD CHEMISTRY & BLOOD GAS ORDERA BLES Final Result [facility] documented in this encounter Visit Diagnoses Diagnosis Acute renal failure, unspecified acute renal failure type (HCC-CMS)- Primary documented in this encounter Care Teams Remarketing Rep Relationship Specialty Start Date End Date Chary Ordoñez [address] [phone] PCP - General Family Medicine - Primary Care 04/27/23 documented as of this encounter
--- OUTSIDE RECORDS SUMMARY | 2024-03-17 12:16 | XMS_ITS | Encounter Summary ---
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 Discuss replacement. Encounter Details Date Type Department Care Team (Late st Contact Info) Description 04/24/2023 15:15 EST Office Visit [facility] General Surgery - [address] [address] Ryan Ruiz MD 111 [facility], Level 5 [place] [address] Vaginal fistula (Primary Dx) Social History Tobacco Use Types [...] Sign Reading Time Taken Comments Blood Pressure 142/78 04/24/2023 1507 EST Pulse 104 04/24/2023 1507 EST Temperature - - Respiratory Rate - - Oxygen Saturation 99% 04/24/2023 1507 EST Inhaled Oxygen Concentration - - Weight 37.2 kg (82 lb) 04/24/2023 1507 EST Height 149.9 cm (4' 11.02) 04/24/2023 1507 EST Body Mass Index 16.55 04/24/2023 1507 EST documented in this encounter Functional Status [...] documented in this encounter Progress Notes * Ryan Ruiz MD - 04/24/2023 1515 EST Subjective: Patient ID: Zaira Collins is an 67 y.o. female. 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 documented in this encounter Plan of Treatment Upcoming Encounters Date Type Department Care Team (Late st Contact Info) Description 04/07/2024 9:00 EST Office Visit [facility] Endocrinology - [facility] [address] [place] [address] Vincenzo Rawls MD 62 [facility] [address] [place] [phone] 08/22/2024 15:30 EDT Telemedicine [facility] Nephrology - [address] [address] Jose L Whitley MD 1 [facility], Level 2 [place] [phone] documented as of this encounter Visit Diagnoses Diagnosis Vaginal fistula- Primary Other specified fistula involving female genital tract documented in this encounter Orders Case Request Count Last Ordered Date First Orde red Date CASE REQUEST OPERATING ROOM 1 04/24/2023 documented in this encounter Care Teams Medical Reception Specialist Relationship Specialty Start Date End Date Lynn Saavedra MD [address] [place] [phone] PCP - General 07/07/22 04/26/23 documented as of this encounter
--- OUTSIDE RECORDS SUMMARY | 2024-03-17 12:16 | XMS_ITS | Encounter Summary ---
Author Organization [facility] Address [address] [place] [address] Care Team Providers Care Geospatial Scientist Name Role Phone Chary Ordoñez Primary Care Provider [phone] Reason for Referral * (Routine/Next Available) - Receiving Office to Obtain Authorization Specialty Diagnoses / Procedures Referred By Contac t Referred To Contact Procedures XR OUTSIDE IMAGES CHEST Imaging, External Referral ID Status Reason Start Date Expiration Date Visits Requested Visits Authorized [id number] Receiving Office to Obtain Authorization 09/23/2023 1 1 Reason for Visit * (Routine/Next Available) - Receiving Office to Obtain Authorization Specialty Diagnoses / Procedures Referred By Contac t Referred To Contact Procedures XR OUTSIDE IMAGES CHEST Imaging, External Referral ID Status Reason Start Date Expiration Date Visits Requested Visits Authorized [id number] Receiving Office to Obtain Authorization 09/23/2023 1 1 Encounter Details Date Type Department Care Team (Latest Contact Info) Description 09/21/2023 Hospital Encounter [facility] Secondary Reads [place] Discharge Disposition: [...] 9:00 EST Office Visit [facility] Endocrinology - [address] [address] Vincenzo Rawls MD [address] [place] [address] [address] [place] [address] 08/22/2024 15:30 EDT Telemedicine [facility] Nephrology - [address] [address] Jose L Whitley MD [address] [place] [address] Rehab, Level 2 [place] [phone] documented as of this encounter Procedures Procedure Name Priority Date/Time Associated Diagnosis Comments XR OUTSIDE IMAGES CHEST Routine 09/21/2023 14:00 EDT documented in this encounter Results * XR OUTSIDE IMAGES CHEST (09/21/2023 14:00 EDT) Narrative 09/23/2023 14:00 EDT This is a non-reportable exam. us External Imaging IMG OTHER IMAGING ORDERABLES Fi nal Result documented in this encounter Visit Diagnoses Not on filedocumented in this encounter Care Teams Geospatial Scientist Relationship Specialty Start Date End Date Chary Ordoñez [address] [phone] PCP - General Family Medicine - Primary Care 04/27/23 documented as of this encounter
--- OUTSIDE RECORDS SUMMARY | 2024-03-17 12:16 | XMS_ITS | Encounter Summary ---
Author Organization [facility] Address [address] [place] [address] Care Team Providers Care Fire Equipment Operator Name Role Phone Chary Ordoñez Primary Care Provider [phone] Reason for Visit * Reason Comments Post-OP Follow Up 1st postop seton Encounter Details Date Type Department Care Team (Late st Contact Info) Description 05/22/2023 10:45 EST Post-op Visit [facility] General Surgery - [address] [address] Ryan Ruiz MD 111 [facility], Level 5 [place] [address] Postop check (Primary Dx) Social History Tobacco Use Types [...] EST Pulse 88 05/22/2023 1050 EST Temperature - - Respiratory Rate - - Oxygen Saturation - - Inhaled Oxygen Concentration - - Weight 36.6 kg (80 lb 9.6 oz) 05/22/2023 1050 ES T Height 149.9 cm (4' 11) 05/22/2023 1050 EST Body Mass Index 16.28 05/22/2023 1050 EST documented in this encounter Functional Status [...] documented in this encounter Progress Notes * Amador Echevarria MD - 05/22/2023 1045 EST Colorectal Surgery Progress Note Service Date: 05/22/2023 Admit Date: No admission date for patient encounter. Subjective Cynthia comes in today for a follow up with Dr. Ruiz s/p seton insertion on 04/30/13. She is doing well, although still reports pain and some mild bloody discharge. Otherwise, she states just seeing Dr. Khan earlier this week and discussed a plan for V-Y advancement flaps. Discussed she will quit smoking and increase her calorie and protein intake with weight gain. She is planned to see Dr. Khan again in 6 weeks to discuss further about the surgery. Today in clinic discussed with Cynthia that will be available for intraoperative assistance as needed Objective Vital Signs: @TEMPRANGE@, Heart Rate: --, @PULSERANGE@, @PULSEFROMOXRANGE@, @RESPIRATORYRANGE@, @BPRANGE@, SpO2: -- I/O:@IOBRIEF@ No intake/output data recorded. Physical Exam: Gen: Alert, cooperative, no acute distress CV: RRR, no murmurs, no gallops Resp: CTAB, no crackles, no wheezing Abdomen: Soft, non-tender, non-distended, ileostomy appliance in place Ext: WWP, no edema, sensation and motor strength grossly intact. Skin: Warm, dry, no noted rashes or lesions Labs: New Imaging: N/A Micro: N/A Assessment Patient is a 67 y.o. female with history of Crohn's disease, CKD, fibromyalgia with perineal fistula who presents as follow up after recent seton placement to discuss about next steps moving forward with advance flaps with plastic surgery Plan Will follow up with next steps with Dr. Khan and will be available for intraoperative assistance General Surgery Staff Note Attestation statement: I saw and examined the patient. I agree with the resident's/fellow's findings and plans as documented. Any additions/exceptions are noted below. She is down from a pack a day to a half a pack a day. We talked about foods that have a lot of protein and encouraged her to eat those. She follow-ups with Dr. Khan in about 4 to 5 weeks. Ryan Ruiz MD 13:56 05/22/2023 documented in this encounter Plan of Treatment Upcoming Encounters Date Type Department Care Team (Late st Contact Info) Description 04/07/2024 9:[address] [facility] Endocrinology - [place] [address] [place] [address] Vincenzo Rawls MD [address] [facility] [address] [place] [address] 08/22/2024 15:[address] [facility] Nephrology - [facility] [address] [place], [place] [phone] Jose L Whitley MD [address] [place], [place] [address], Level 2 [place] [phone] documented as of this encounter Visit Diagnoses Diagnosis Postop check- Primary Follow-up examination, following unspecified surgery documented in this encounter Care Teams Fire Equipment Operator Relationship Specialty Start Date End Date LouChary [address] [place] [phone] PCP - General Family Medicine - Primary Care 04/27/23 documented as of this encounter
--- OUTSIDE RECORDS SUMMARY | 2024-03-17 12:16 | XMS_ITS | Encounter Summary ---
Author Organization [facility] Address [address] [place] [address] Care Team Providers Care Steward/Stewardess Smoke Room Name Role Phone Lynn Saavedra MD Primary Care Provider [phone] Reason for Visit * Reason Onset Date Comments Other 04/21/2023 Encounter Details Date Type Department Care Team (Late st Contact Info) Description 04/21/2023 Telephone [facility] General Surgery - [address] [phone] Ryan Ruiz MD [address] [place] [address], [address] [place] [address] Other Social History Tobacco Use [...] encounter Miscellaneous Notes * Telephone Encounter - Li Carvajal RN - 04/21/2023 0902 EST Cynthia is calling as her anovaginal fistula seton fell out this am when on the toilet. She was last seen with Dr Ruiz on 01/09/23. She has accepted an appointment for discussion and evaluation for replacement of the seton on Thursday04/24/23 at 1515. * Telephone Encounter - Maude Tubbs - 04/21/2023 0836 EST She went to the bathroom and she said her wick came out. She is concerned and would appreciate a call back. documented in this encounter Plan of Treatment Upcoming Encounters Date Type Department Care Team (Late st Contact Info) Description 04/07/2024 9:00 EST Office Visit [facility] Endocrinology - [facility] [address] [place] [address] Vincenzo Rawls MD 62 [facility] [address] [place] [address] 08/22/2024 15:30 EDT Telemedicine [facility] Nephrology - [facility] [place] 1 [place], [place] [phone] Jose L Whitley MD 1 [facility], [address] [place] [address] documented as of this encounter Visit Diagnoses Not on filedocumented in this encounter Care Teams Steward/Stewardess Smoke Room Relationship Specialty Start Date End Date Lynn Saavedra MD [address] [place] [phone] PCP - General 07/07/22 04/26/23 documented as of this encounter
--- OUTSIDE RECORDS SUMMARY | 2024-03-17 12:16 | XMS_ITS | Encounter Summary ---
Author Organization [facility] Address [address] [place] [address] Care Team Providers Care Stakes Player Name Role Phone Chary Ordoñez Primary Care Provider [phone] Encounter Details Date Type Department Care Team (Late st Contact Info) Description 08/20/2023 Abstract [facility] Nephrology - [address] [address] Jose L Whitley MD 1 [facility], Level 2 [place] [address] Stage 3b chronic kidney disease [...] Info) Description 04/07/2024 9:00 EST Office Visit [facility] Endocrinology - [address] [address] Vincenzo Rawls MD [address] [place] [address] [address] [place] [address] 08/22/2024 15:30 EDT Telemedicine [facility] Nephrology - [address] [phone] Jose L Whitley MD [address] [place] [address], [address] [place] [phone] documented as of this encounter Procedures Procedure Name Priority Date/Time Associated Diagnosis Comments COMPREHENSIVE METABOLIC PANEL (CMP) Routine 08/11/2023 12:15 EDT Stage 3b chronic kidney disease (HCC-CMS) documented in this encounter Results * COMPREHENSIVE METABOLIC PANEL (CMP) (08/11/2023 12:15 EDT) GFR, Calculated, External 28 [facility] Glucose, Serum, External 102 mg/dL [facility] Albumin, External 3.6 g/dL [facility] Total Alkaline Phosphatase, External 127 [facility] ALT, External 45 [facility] AST, External 32 U/L [facility] BUN, External 29 mg/dL [facility] Calculated Calcium, External [facility] Calcium, External 9.3 mg/dL [facility] Chloride, External 101 mmol/L [facility] CO2, External 30 mmol/L [facility] Creatinine, External 1.81 mg/dL [facility] Fasting?, External [facility] Potassium, External 4.2 mmol/L [facility] Sodium, External 141 mmol/L [facility] Total Protein, External 7.2 [facility] Bilirubin, Total, External 0.3 [facility] Blood VENOUS BLOOD / Unknown 08/11/2023 12:15 EDT us Jose L Whitley MD CHEMISTRY & BLOOD GAS ORDERA BLES Final Result [facility] documented in this encounter Visit Diagnoses Diagnosis Stage 3b chronic kidney disease (HCC-CMS)- Primary documented in this encounter Care Teams Stakes Player Relationship Specialty Start Date End Date Chary Ordoñez [address] [phone] PCP - General Family Medicine - Primary Care 04/27/23 documented as of this encounter
--- OUTSIDE RECORDS SUMMARY | 2024-03-17 12:16 | XMS_ITS | Encounter Summary ---
Author Organization [facility] Address [address] [place] [address] Care Team Providers Care Shear Helper Name Role Phone Chary Ordoñez Primary Care Provider [phone] Encounter Details Date Type Department Care Team (Late st Contact Info) Description 10/23/2023 Abstract [facility] Nephrology - [address] [address] Jose L Whitley MD 1 [facility], Level 2 [place] [address] Social History Tobacco Use Types [...] EST Office Visit [facility] Endocrinology - [address] [phone] Vincenzo Rawls MD [address] [place] [address] [address] [place] [address] 08/22/2024 15:30 EDT Telemedicine [facility] Nephrology - [address] [address] Jose L Whitley MD 1 [facility], Level [address] [place] [address] documented as of this encounter Procedures Procedure Name Priority Date/Time Associated Diagnosis Comments COMPREHENSIVE METABOLIC PANEL (CMP) Routine 10/22/2023 8:33 EDT documented in this encounter Results * COMPREHENSIVE METABOLIC PANEL (CMP) (10/22/2023 8:33 EDT) GFR, Calculated, External 26 [facility] Glucose, Serum, External 105 mg/dL [facility] Albumin, External 3.1 g/dL [facility] Total Alkaline Phosphatase, External 161 [facility] ALT, External 22 [facility] AST, External 21 U/L [facility] BUN, External 24 mg/dL [facility] Calculated Calcium, External [facility] Calcium, External 8.4 mg/dL [facility] Chloride, External 100 mmol/L [facility] CO2, External 31 mmol/L [facility] Creatinine, External 1.92 mg/dL [facility] Fasting?, External [facility] Potassium, External 3.8 mmol/L [facility] Sodium, External 136 mmol/L [facility] Total Protein, External 6.8 [facility] Bilirubin, Total, External 0.2 [facility] Blood VENOUS BLOOD / Unknown 10/22/2023 8:33 EDT us Historical Provider CHEMISTRY & BLOOD GAS ORD ERABLES Final Result [facility] documented in this encounter Visit Diagnoses Not on filedocumented in this encounter Care Teams Shear Helper Relationship Specialty Start Date End Date Chary Ordoñez [address] [phone] PCP - General Family Medicine - Primary Care 04/27/23 documented as of this encounter
--- OUTSIDE RECORDS SUMMARY | 2024-03-17 12:16 | XMS_ITS | Encounter Summary ---
Author Organization [facility] Address [address] [place] [address] Care Team Providers Care Foster Care Social Worker Name Role Phone Chary Ordoñez Primary Care Provider [phone] Reason for Visit * Reason Comments New Patient Visit Discuss reconstructi on of perineal fistula, referred by Dr. Ruiz Encounter Details Date Type Department Care Team (Latest Contact Info) Description 05/18/2023 10:15 EST Office Visit [facility] Plastic, Reconstructive & Cosmetic Surgery - [address], [address] [place] [address] Roldan Khan MD [address] [place] [phone] Perineal fistula (Primary Dx); Crohn's disease with complication, unspecified gastrointestinal tract location ([facility]); Stage 3b chronic kidney disease ([facility]) Social History Tobacco Use Types Packs/Day Years [...] Progress Notes * Roldan Khan MD - 05/18/2023 1015 EST Plastic and Reconstructive Surgery Consult Patient Name: Zaira Collins Date of Service: 05/18/23 Referring Provider: Dr. Ryan Ruiz Chief Complaint: Chief Complaint Patient presents with New Patient Visit Discuss reconstruction of perineal fistula, referred by Dr. Ruiz HPI: Zaira Collins is a 67 y.o. female who presents today to discuss perineal fistula, she is referred by Dr. Ryan Ruiz. The patient has a history of Crohn's disease. She has had numerous procedures going back to 2009 with General Surgery. She has had a [...] Disease, fibromyalgia. She has tried to quit smokingin the past and is interested in doing so. Review of Systems - Pertinent items are noted in HPI. Allergies: Allergies as of 05/18/2023 - Reviewed 05/18/2023 Allergen Reaction Noted Chantix [varenicline] Nsaids (non-steroidal anti-inflammatory drug) Other (See Comments) 04/30/2023 PMH: Past Medical History: Diagnosis Date Anemia 05/16/2022 H/H = 13.4/41.2 Anomaly, cardiac tachycardia Chronic kidney disease, stage III (moderate) ([facility]) Crohn's disease ([facility]) Noted 11/11/22: s/p colectomy and small [...] anus Renal tubular acidosis 04/29/2023 [place] at [facility] after bowel surgery Seizures (HCC-CMS) 04/29/2023 Due to taking Chantix approx 6 years ago (~2018) Tachycardia 04/29/2023 Metoprolol, no current symptoms Vaginal fistula Wears dentures 04/29/2023 uppers PSH: Past Surgical History: Procedure Laterality Date COLON SURGERY HYSTERECTOMY ILEOSTOMY OR JEJUNOSTOMY 1984 RECTAL SURGERY anus removal 03/2018, debridement 10/2018 [...] packs/day: 0.25 Average packs/day: 0.3 packs/day for 46.6 years (11.7 ttl pk-yrs) Types: Cigarettes Start [...] mouth every 6 hours as needed for Pain., Disp: ,Rfl: loperamide (IMODIUM) 2 mg capsule, TAKE 1-2 [...] Rfl: Physical Exam 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 Estimated body mass index is 16.3 kg/m?? as calculated from the following: Height as of 04/29/23: 149.9 cm (59). Weight as of 04/30/23: 36.6 kg (80 lb 11 oz). Patient is alert, oriented, and non-distressed Regular rate and rhythm Unlabored respirations Focused Exam: Anus surgical absent Seton in place from perineal to posterior vaginal wall Ileostomy in place Imaging: None Assessment & Plan: Zaira Collins is a 67 y.o. 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 -The nature of the patient's diagnosis, treatment plan and alternatives, and potential complications were discussed in detail with the patient. -We discussed possible surgical options to managing her fistula -We discussed excision of fistula track and surrounding tissue and closure of the wound with local tissue flaps in way of bilateral V-Y advancement flaps from the inferior gluteal tissue -Discussed anticipated recovery, healing, post-op restrictions -Discussed importance of nicotine cessation prior to surgery, discussed improving protein/calorie intake pre-op -Discussed post-op pressure offloading -We discussed risks, benefits, alternatives. Topics discussed included but were not limited to: infection, bleeding/hematoma, seroma, delayed wound healing, scarring, poor cosmetic outcome, asymmetry, persistent or worsening wounds, fistula -Discussed how her medical conditions increase risks of complications -Discussed that she may have a persistent or new fistula, or may have worsened wound post-op that could require prolonged open wound care -At this time, she is interested in moving forward with reconstruction -She will focus on nicotine cessation and increased protein intake over the next 4-6 weeks at whichpoint she will return -Pending her progress, we will proceed as appropriate Roldan Khan MD 05/18/2023 11:39 I spent a total of 45 minutes on the date of this encounter meeting with the patient and reviewing documentation/coordinating care as described in the above note. * Christine Disla MA - 05/18/2023 1015 EST Examination chaperoned by CHRISTINE DISLA MA. documented in this encounter Plan of Treatment Upcoming Encounters Date Type Department Care Team (Late st Contact Info) Description 04/07/2024 9:00 EST Office Visit [facility] Endocrinology - [address] [address] Vincenzo Rawls MD [address] [place] [address] [address] [place] [address] 08/22/2024 15:30 EDT Telemedicine [facility] Nephrology - [address] [phone] Jose L Whitley MD [address] [place] [address], [address] [place] [phone] documented as of this encounter Visit Diagnoses Diagnosis Perineal fistula- Primary Urethral fistula Crohn's disease with complication, unspecified gastrointestinal tract location ([facility]) Stage 3b chronic kidney disease ([facility]) documented in this encounter Care Teams Foster Care Social Worker Relationship Specialty Start Date End Date TiagoLou gilgail [address] [place] [address] PCP - General Family Medicine - Primary Care 04/27/23 documented as of this encounter
--- OUTSIDE RECORDS SUMMARY | 2024-03-17 12:16 | XMS_ITS | Encounter Summary ---
Author Organization [facility] Address [address] [place] [address] Care Team Providers Care Wrapper Sheeter Name Role Phone Chary Ordoñez Primary Care Provider [phone] Reason for Visit * Auth/Cert (Routine) Specialty Diagnoses / Procedures Referred By Savannah ware Referred To Contact Diagnoses Vaginal fistula Procedures FL PLACEMENT SETON Insertion, seton Referral ID Status Reason Start Date Expiration Date Visits Re quested Visits Authorized [id number] 1 1 Encounter Details Date Type Department Care Team (Late st Contact Info) Description 04/30/2023 9:30 EST - 04/30/2023 10:40 EST Surgery [facility] OR [address] [place] [id number] Ryan Ruiz MD [address] [place] [address] [address] [place] [phone] Insertion, seton [27304 (CPT??)] Surgery Details Date/Time Status Location OR Service Patient Class Case Cl ass Case Type Trauma Case? 04/30/2023 0930 Posted [facility] OR [address] Outpatient Surgery H - Elective Panel 1 Procedure LRB Anes Op Region Wound Class Comments Insertion, seton N/A Monitored Anest hesia Care Anus Class II/ Clean Contaminated Surgeon Surgeon Role Service Panel Ryan Ruiz MD Primary General 1 Roldan Khan MD Assisting Plastics 1 documented in this encounter Social History Tobacco [...] Sign Reading Time Taken Comments Blood Pressure 155/94 04/30/2023 1030 EST Pulse - - Temperature 36.6 ??C (97.9 ??F) 04/30/2023 1030 EST Respiratory Rate 12 04/30/2023 1030 EST Oxygen Saturation 100% 04/30/2023 1030 EST Inhaled Oxygen Concentration - - Weight [...] 6 hours as needed for Pain. 04/30/2023 documented in this encounter Discharge Disposition Disposition [...] Renal tubular acidosis Noted 11/11/22: dx at [facility], after bowel surgery Seizures (HCC-CMS) [...] Ryan Ruiz MD - 04/30/2023 1121 EST [facility] Operative Note Date: 04/30/2023 Location: [facility] [...] IV 04/30/23 0915 Left;Posterior Forearm (Active) Staff: Dredge Operator: Juwan Pineda Jr., RN; Raysa Cerda RN Relief Dredge Operator: Jaimie Demarco RN Scrub Person: Ko Simon RN Patient Coordinating Producer: Hilaria Perry Indications: Zaira Collins is an [...] 04/07/2024 9:00 EST Office Visit [facility] Endocrinology - [facility] [address] [place], [place] [phone] Vincenzo Rawls MD 62 [facility] [address] [place] [phone] 08/22/2024 15:30 EDT Telemedicine [facility] Nephrology - [address] [phone] Jose L Whitley MD [address] [place] [address], Level [address] [place] [phone] Scheduled Referrals Name Type Priority Associated Diagnoses [...] Other specified fistula involving female genital tract Vaginal fistula Other specified fistula involving female [...] Jazlyn 04/30/23 at 1404, Routine, Recovery (only) lidocaine-EPINEPHrine 1 %-1:100,000 20 mL, BUPivacaine (PF) (MARCAINE) 0.5% 20 mL, sodium bicarbonate 4.2 % 7 mL PRN, Starting on Jazlyn 04/30/23 at 1008, Until Jazlyn 04/30/23 at 1020, Routine, Intraprocedure Given 04/30/2023 10:08 EST 1 4 mL metronidazole (FLAGYL) infusion 500 mg 500 mg, intravenous, Administer over 30 Minutes, PRE-OP ONCE, 1 dose, On Jazlyn 04/30/23 at 0930, Type of Therapy: Prophylaxis, Suspected Indication (Select all that apply): Colorectal surgery, Routine, Preprocedure Given 04/30/2023 9:38 EST 500 m g naloxone (NARCAN) injection 0.2 mg 0.2 mg, intravenous, PRN, Starting on Jazlyn 04/30/23 at 1046, Until Jazlyn 04/30/23 at 1404, Opioid Reversal, Routine, Recovery (only) ondansetron (PF) (ZOFRAN) injection 4 mg 4 mg, intravenous, PRN, 1 dose, Starting on Jazlyn 04/30/23 at 1046, Until Jazlyn 04/30/23 at 1404, Nausea, Vomiting, Routine, Recovery (only) sodium chloride 0.9 % irrigation PRN, Starting on Jazlyn 24 at 1001, Until Jazlyn 04/30/23 at 1020, Routine, Intraprocedure Given 04/30/2023 10:0 1 EST 1,000 mL documented in this encounter Discontinued Medications Medication [...] Until Jazlyn 04/30/23 at 1404, Routine, Preprocedure 0919 (New Bag - Prov ider: Nicolasa Mosher)0945 (Continued by Anesthesia - Provider: MARY Wallace)1022 (Anesthesia Volume Adjustment - Provider: MARY Wallace) lactated ringers (LR) infusion at 75 mL/hr, intravenous, CONTINUOUS, Starting on Jazlyn 24 at 1115, Until Jazlyn 24 at 1404, Routine, Recovery (only) 1115 (Canceled Entry - Provider: Batch Job User Admin - Comment: Automatically canceled at discontinue of medication order) PRN Medication Order 04/28/2023 04/29/2023 04/30/2023 acetaminophen (TYLENOL) tablet 650 mg (COMPLETED)(Linked Group 1) 650 mg, oral, PRN, 1 dose, Starting on Jazlyn 24 at 1100, Until Jazlyn 24 at 1056, Pain, Routine, Recovery (only) 1056 [...] on Jazlyn 04/30/23 at 1008, Until Jazlyn 24 at 1020, Routine, Intraprocedure 1008 (Given - [...] atropine 0.1 mg/mL syringe 0.5 mg 1 diphenhydrAMINE (BENADRYL) i njection 12.5 mg 1 04/30/2023 gabapentin (NEURONTIN) capsule 600 mg 1 ibuprofen (MOTRIN) tablet 600 mg 2 04/30/19 lactated ringers (LR) infusion 1 04/30/2023 lidocaine (PF) 10 mg/mL (1 % ) injection 2 mg 1 04/30/2023 naloxone (NARCAN) injection 0.2 mg 1 2023 ondansetron (PF) (ZOFRAN) injection 4 mg 1 04/30/2023 Diet Count Last Ordered Date First Orde [...] 04/16 documented in this encounter Care Teams Wrapper Sheeter Relationship Specialty Start Date End Date Chary Ordoñez [address] [phone] PCP - General Family Medicine - Primary Care 04/27/23 documented as of this encounter
--- OUTSIDE RECORDS SUMMARY | 2024-03-17 12:16 | XMS_ITS | Encounter Summary ---
Author Organization [facility] Address [address] [place] [address] Care Team Providers Care Duck Farmer Name Role Phone Chary Ordoñez Primary Care Provider [phone] Reason for Referral * Laboratory Services (Routine/Next Available) - New Request Specialty Diagnoses / Procedures Referred By [facility] t Referred To Contact Diagnoses Acute renal failure, unspecified acute renal failure type ([facility]) Procedures NEPHROLOGY PROFILE (INCLUDES BUN, CREATININE, CALCULATED GFR, ELECTROLYTES, CALCIUM, PHOSPHORUS, ALBUMIN) Jose L Whitley MD Phone: tel: fax: Referral ID Status Reason Start Date Expiration Date V isits Requested Visits Authorized [id number] New Request 05/21/2023 1 1 Reason for Visit * Reason Onset Date Comments Results 05/21/2023 Encounter Details Date Type Department Care Team ([facility] Contact Info) Description 05/21/2023 Telephone [facility] Nephrology - [address] [address] Jose L Whitley MD [address] [place] [address], Level [address] [place] [phone] Results Social History Tobacco Use Types Packs/Day [...] Encounter - Jose L Whitley MD - 05/21/2023 9832 EST Serum creatinine from 1 day ago was higher at 1.96 mg/dl. Repeat nephrology profile in 10-14 days -ordered. CHARLIE Morelos to please call the patient. documented in this encounter Plan of Treatment Upcoming Encounters Date Type Department Care Team (Late st Contact Info) Description 04/07/2024 9:00 EST Office Visit [facility] Endocrinology - [facility] [address] [place], [place] [phone] Vincenzo Rawls MD 62 [facility] [address] [place] [phone] 08/22/2024 15:30 EDT Telemedicine [facility] Nephrology - [address] [phone] Jose L Whitley MD 1 [facility], Level 2 [place] [phone] Scheduled Orders Name Type Priority Associated Diagnoses Orde r Schedule NEPHROLOGY PROFILE (INCLUDES BUN, CREATININE, CALCULATED GFR, ELECTROLYTES, CALCIUM, PHOSPHORUS, ALBUMIN) Lab Routine Acute renal failure, unspecified acute renal failure type (HCC-CMS) Expected: 06/04/2023 (Approximate), Expires: 05/20/2024 documented as of this encounter Visit Diagnoses Diagnosis Acute renal failure, unspecified acute renal failure type (HCC-CMS)- Primary documented in this encounter Care Teams Duck Farmer Relationship Specialty Start Date End Date Chary Ordoñez [address] [place] [phone] PCP - General Family Medicine - Primary Care 04/27/23 documented as of this encounter
--- OUTSIDE RECORDS SUMMARY | 2024-03-17 12:17 | XMS_ITS | Encounter Summary ---
Author Organization [facility] Address [address] [place] [address] Care Team Providers Care Engineering Recruiter Name Role Phone Jennifer Ordoñez APRN Primary Care Provider + Lynn Saavedra MD Primary Care Provider [phone] Chary Ordoñez Primary Care Provider [phone] Encounter Details Date Type Department Care Team (Late st Contact Info) Description 04/09/2022 Telephone [facility] Endocrinology - [address] [address] Brent Jaime MD Social History Tobacco Use Types Packs/Day Years Used Date Smoking Tobacco: Every Day Cigarettes 0.3 47.4 Started: 10/10/1976 Smokeless Tobacco: Never Alcohol Use Standard Drinks/Week Comments No 0 (1 standard drink = 0.6 oz [...] * Telephone Encounter - Yelitza Banerjee - 04/09/2022 1026 EST lmom letting patient know the appointment on 09/02/22 @ 9:40 AM with de. jaime was cancelled due to a schedule change. Please schedule next available. documented in this encounter Plan of Treatment Upcoming Encounters Date Type Department Care Team (Late st Contact Info) Description 04/07/2024 9:00 EST Office Visit [facility] End[facility] - [facility] [address] [place], [place] [phone] Vincenzo Rawls MD 62 [facility] [address] [place] [phone] 08/22/2024 15:30 EDT Telemedicine [facility] Nephrology - [facility] [address] [place] [address] Jose L Whitley MD 1 [facility], [address] [place] [phone] documented as of this encounter Visit Diagnoses Not on filedocumented in this encounter Care Teams Engineering Recruiter Relationship Specialty Start Date End Date Jennifer Ordoñez APRN [address] [place] [address] PCP - General 03/22/18 07/06/22 Lynn Saavedra MD [address] [place] [address] PCP - General 07/07/22 04/26/23 Chary Ordoñez [address] [place] [address] PCP - General Family Medicine - Primary Care 04/27/23 documented as of this encounter
--- OUTSIDE RECORDS SUMMARY | 2024-03-17 12:17 | XMS_ITS | Encounter Summary ---
Author Organization [facility] Address [address] [place] [address] Care Team Providers Care Research Support Specialist Name Role Phone Lynn Saavedra MD Primary Care Provider [phone] Encounter Details Date Type Department Care Team (Late st Contact Info) Description 07/10/2022 Abstract [facility] Nephrology - [address] [phone] Jose L Whitley MD 1 [facility], Level 2 [place] [address] Acute renal failure, unspecified acute [...] Info) Description 04/07/2024 9:00 EST Office Visit [facility] Endocrinology - [address] [address] Vincenzo Rawls MD [address] [place] [address] [address] [place] [address] 08/22/2024 15:30 EDT Telemedicine [facility] Nephrology - [address] [phone] Jose L Whitley MD [address] [place] [address], [address] [place] [phone] documented as of this encounter Procedures Procedure Name Priority Date/Time Associated Diagnosis Comments COMPREHENSIVE METABOLIC PANEL (CMP) Routine 07/08/2022 14:51 EDT Acute renal failure, unspecified acute renal failure type (HCC-CMS) documented in this encounter Results * COMPREHENSIVE METABOLIC PANEL (CMP) (07/08/2022 14:51 EDT) GFR, Calculated, External 29 [facility] Glucose, Serum, External 94 [facility] Albumin, External 3.5 [facility] Total Alkaline Phosphatase, External 144 [facility] ALT, External 40 [facility] AST, External 31 [facility] BUN, External 33 [facility] Calculated Calcium, External [facility] Calcium, External 9.0 [facility] Chloride, External 105 [facility] CO2, External 29 [facility] Creatinine, External 1.78 [facility] Fasting?, External [facility] Potassium, External 4.1 [facility] Sodium, External 142 [facility] Total Protein, External 7.3 [facility] Bilirubin, Total, External 0.2 [facility] Blood VENOUS BLOOD / Unknown 07/08/2022 14:51 EDT us Jose L Whitley MD CHEMISTRY & BLOOD GAS ORDERA BLES Final Result [facility] documented in this encounter Visit Diagnoses Diagnosis Acute renal failure, unspecified acute renal failure type (HCC-CMS)- Primary documented in this encounter Care Teams Research Support Specialist Relationship Specialty Start Date End Date Lynn Saavedra MD 4 [facility] [place] [phone] PCP - General 07/07/22 04/26/23 documented as of this encounter
--- OUTSIDE RECORDS SUMMARY | 2024-03-17 12:17 | XMS_ITS | Encounter Summary ---
Author Organization [facility] Address [address] [place] [address] Care Team Providers Care Server Assistant Name Role Phone Lynn Saavedra MD Primary Care Provider [phone] Chary Ordoñez Primary Care Provider [phone] Reason for Visit * Reason Onset Date Comments Appointment Related 10/06/2022 Encounter Details Date Type Department Care Team (Late st Contact Info) Description 10/06/2022 Telephone [facility] - [address] [address] Brent Jaime MD Appointment Related Social History Tobacco Use Types [...] * Telephone Encounter - Yelitza Banerjee - 10/06/2022 1211 EDT Left Message for patient advising elevator is out of order. Please confirm if patient is ok taking a flight of stairs or needs to be roomed on first floor. Please update appointment notes for patient's preference. documented in this encounter Plan of Treatment Upcoming Encounters Date Type Department Care Team (Late st Contact Info) Description 04/07/2024 9:00 EST Office Visit [facility] Endocrinology - [facility] [address] [place], [place] [phone] Vincenzo Rawls MD 62 [facility] [address] [place] [address] 08/22/2024 15:30 EDT Telemedicine [facility] Nephrology - [address] [address] Jose L Whitley MD 1 [facility], [address] [place] [address] documented as of this encounter Visit Diagnoses Not on filedocumented in this encounter Care Teams Server Assistant Relationship Specialty Start Date End Date Lynn Saavedra MD [address] [place] [address] PCP - General 07/07/22 04/26/23 Chary Ordoñez [address] [place] [address] PCP - General Family Medicine - Primary Care 04/27/23 documented as of this encounter
--- OUTSIDE RECORDS SUMMARY | 2024-03-17 12:17 | XMS_ITS | Encounter Summary ---
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] Procedures IA SURG DIAGNOSTIC EXAM, ANORECTAL IA I&D RECTAL ABSCESS + FISTULECTOMY EXAM UNDER ANESTHESIA, ANORECTAL, possible abscess drainage, possible seton placement I+D,RECTAL ABSCESS, W/FIST/OTOMY,W/WO SETON Referral ID Status Reason Start Date Expiration Date Visits Re quested Visits Authorized [id number] 1 1 Encounter Details Date Type Department Care Team (Late st Contact Info) Description 11/19/2022 12:08 EDT Anesthesia Event [facility] Operating Room [address] [place] [address] Cheikh Mancia MD 111 [facility], Level 2 [place] [address] Anesthesia Record Procedure Summary Procedure Name Responsible Anesthesiologist Anesthesia Start Time Anesthesia Stop Time EXAM UNDER ANESTHESIA, ANORECTAL, possible abscess drainage, possible seton placement (Anus) Cheikh Mancia MD 11/19/22 1208 11/19/22 1256 Events Date Time Event Comment 11/19/2022 1208 An Start The patient was re-evaluated immediately before moderate or deep sedation use, before anesthesia induction, or before the anesthesia procedure. 1208 An Start Data 1215 Anesthesia Ready 1252 an stop data 1255 Handoff to RN I completed my handoff to the receiving nurse during which we: 1. Identified the patient 2. Identified the responsible provider 3. Reviewed the pertinent medical history 4. Discussed the surgical course 5. Reviewed intra-op anesthesia management and issues during anesthesia 6. Set expectations for post-procedure period 7. Allowed opportunity for questions and acknowledgement of understanding. 1256 An Stop Meds Name Total fentanyl citrate (PF) injection 25 mcg ketAMINE 5 mL prefilled syringe 10 mg midazolam 1 mg/mL 2 mL vial 1 mg propOFol (DIPRIVAN) injection 110,176 mc g lactated ringers (LR) infusion 200 mL * Agents Name O2 N2O Air Aux O2 flow * Blood No blood administrations on file. Lines, Drains, and Airways Type Details Placement Removal Peripheral IV 11/19/22; 1127; 20; 1.25; B Julien Introcan; Posterior, Right; Hand; Inserted by RN; 1; None; 3.15% Chlorhexidine with IPA; 11/19/22; 1505 11/19/22 1127 by Olimpia Ocampo RN 11/19/22 1505 by Sharyn Tinsley RN Wound 11/19/22; 1228; Rect um; 04/29/23; 0950 11/19/22 1228 by Karthik Skinner, CHARLIE 04/29/23 0950 by Roxy Diamond, CHARLIE documented in this encounter Social History Tobacco [...] of Assessment Author No 04/16/2018 12:00 Sa kalrie Monique RN documented as of this encounter Mental Status * Because of a physical, mental, or emotional condition, do you have serious difficulty concentrating, remembering, or making decisions? (5 years old or older) Answer Entry Date Author No 04/16/2018 12:00 Sa karlie Monique RN documented in this encounter OR Notes * Anesthesia Postprocedure Evaluation - Brady Pool, MARY - 11/19/2022 1256 EDT Patient: Zaira Collins Vital signs were reviewed with the recovery nurse. Complete vitals history is available in the Epicflowsheets. Vitals Value Taken Time BP 80/59 11/19/22 1251 Temp 36.4 11/19/22 1256 Resp 14 11/19/22 1256 Pulse From Oximetry 74 BPM 11/19/22 1256 SpO2 100 % 11/19/22 1256 Heart Rate 74 BPM 11/19/22 1256 Vitals shown include unvalidated device data. Last Pain Score - Numeric Pain Level (Scale 1-10): 6 Type of Anesthesia - MAC Anesthesia Post Evaluation Post-procedure vitals reviewed and are stable. Level of consciousness: sedated Temperature status: normothermia and patient returned to pre-procedure baseline Respiratory status: airway patent and stable Cardiovascular status: stable Hydration status: adequate Nausea/Vomiting: none Pain management: adequate Post-Op Assessment: patient tolerated procedure well with no complications Patient participation: able to participate Disposition: outpatient/home Anesthesia Complications: No apparent anesthesia complications * Anesthesia Preprocedure Evaluation - Cheikh Mancia MD - 11/19/2022 1112 EDT Anesthesia Preprocedure Evaluation Procedure: EXAM UNDER ANESTHESIA, ANORECTAL, possible abscess drainage, possible seton placement (Anus) ?I+D,RECTAL ABSCESS, W/FIST/OTOMY,W/WO SETON (Anus) 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 Chart and Nursing Notes reviewed, including NPO status and Medication History. Additional ROS/History Findings: Past Medical History: Diagnosis Date ??? Anemia Noted 11/11/22: 05/16/22: HCT 41.2. HGB 13.4 ??? Anomaly, cardiac tachycardia ??? Arrhythmia Noted 11/11/22: Hx of tachycardia, on Metoprolol, no current symptoms ??? Chronic kidney disease, stage III (moderate) (HCC) (HCC-CMS) Noted 11/10/22: Stage 3 ??? Crohn's disease (HCC-CMS) (HCC) (HCC-CMS) Noted 11/11/22: s/p colectomy and small bowel resections with ileostomy ??? Depression ??? Diarrhea with dehydration Noted 11/11/22: leading to recurrent episodes of ERNESTINA ??? Edentulous Noted : No teeth ??? Exercise involving walking Noted 11/11/22: Walking dog daily, 1-2 FOS she might be SOB. ??? Fibromyalgia Noted 11/11/22 ??? H/O ileostomy ??? Heart murmur Noted 11/11/22: Diagnosed a few yrs ago per pt ??? Hematuria cystoscopy, renal CT, cytology unremarkable ??? Hepatitis Noted 11/11/22:age 31 ??? History of general anesthesia Noted 11/11/22: Without any issues. ??? Mental disorder Noted 11/11/22: Depression controlled well on Cymbalta ??? 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 Nephrolithiasis unknown type, required procedrues for removal; no recent stones ??? 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 Postprocedural non-healing wound small cavity anus ??? Renal tubular acidosis Noted 11/11/22: dx at [facility], after bowel surgery ??? Seizures ([facility]) Noted 11/11/22: Due to taking Chantix ??? Tachycardia Noted 11/11/22: rx with b-charu, asymptomatic Relevant Problems Anesthesia (+) PONV (postoperative nausea and vomiting) (-) Motion sickness (-) Sleep apnea PULMONARY (-) Asthma (-) Chronic obstructive pulmonary disease (HCC-CMS) (-) Pneumonia (-) Recent URI (-) Shortness of breath (-) Sleep apnea Neuro/Psych (-) CVA (cerebral vascular accident) (HCC-CMS) CARDIOVASCULAR (-) DIXON (dyspnea on exertion) (-) HTN (hypertension) (-) UT (myocardial infarction) (HCC-CMS) (HCC) (HCC-CMS) /Renal (+) Chronic kidney disease, stage III (moderate) (HCC) (HCC-CMS) (+) Nephrocalcinosis (+) Nephrolithiasis (+) Renal tubular acidosis ENDO/GI (-) Diabetes mellitus type 1 (HCC-CMS) (-) Diabetes mellitus, type 2 (HCC-CMS) (-) Hyperthyroidism (-) Hypothyroidism Other (-) Blood dyscrasia syndrome Past Surgical History: Procedure Laterality Date ??? COLON SURGERY ??? HYSTERECTOMY ??? ILEOSTOMY OR JEJUNOSTOMY 1983 ??? RECTAL SURGERY anus removal 03/2018, debridement 10/2018 ??? SMALL INTESTINE SURGERY ??? TOTAL COLECTOMY Past Anesthetics 10/27/2018: MAC 04/15/2018: MAC#3. Grade 1. Easy mask Review of Systems Constitutional: Negative for chills and fever. Respiratory: Negative for shortness of breath. Cardiovascular: Negative for chest pain. Gastrointestinal: Negative for heartburn, nausea and vomiting. Endo/Heme/Allergies: Does not bruise/bleed easily. SOCIAL HISTORY: [] None [x] Current smoking [] Vaping [x] Marijuana (at bedtime) [] Alcohol Social History Tobacco Use Smoking Status Every Day ??? Packs/day: 0.25 ??? Years: 45.00 ??? Additional pack years: 0.00 ??? Total pack years: 11.25 ??? Types: Cigarettes ??? Start date: 10/10/1976 Smokeless Tobacco Never Tobacco Comments 5 cigarettes daily Social History Substance and Sexual Activity Drug Use Yes ??? Types: Marijuana Comment: smoking at night Social History Substance and Sexual Activity Alcohol Use Yes Comment: rarely FAMILY HISTORY: [x]No family history of allergic reactions to anesthesia No current facility-administered medications on file prior to encounter. Current Outpatient Medications on File Prior to Encounter Medication Sig Dispense Refill ??? acetaminophen (TYLENOL) 325 mg tablet Take 3 Tabs by mouth every 6 hours. Please alternate taking with ibuprofen so you are taking one or the other every three hours. 1 Tab 0 ??? amitriptyline (ELAVIL) 10 mg tablet Take 2 Tablets by mouth at bedtime. 60 Tablet 5 ??? calcium carbonate/vitamin D3 (VITAMIN D-3 ORAL) Take by mouth. (Patient not taking: Reported on11/11/2022) ??? cyanocobalamin (VITAMIN B12) 1,000 mcg/mL injection Inject 1 mL into the muscle every 28 days. (Patient not taking: Reported on 11/19/2022) ??? cyclobenzaprine (FLEXERIL) 5 mg tablet TAKE ONE TABLET BY MOUTH THREE TIMES A DAY NEEDED ??? DULoxetine (CYMBALTA) 30 mg delayed release capsule Take 1 Capsule by mouth daily. ??? ergocalciferol (DRISDOL; VITAMIN D2) 50,000 unit capsule Take 50,000 Units by mouth every 7 days. (Patient not taking: Reported on 07/07/2022) ??? estradioL (ESTRACE) 0.5 mg tablet Take 0.5 Tablets by mouth daily. 1/2 tab daily ??? FOLIC ACID ORAL Take 1 Tab by mouth daily. ??? loperamide (IMODIUM) 2 mg capsule TAKE 1-2 CAPSULES BY MOUTH ONCE DAILY NEEDED FOR TO CONTROL OSTOMY OUTPUT ??? Magnesium Oxide 500 mg capsule Take 1 Capsule by mouth daily. ??? metoprolol SUCCinate (TOPROL-XL) 25 mg tablet Take 0.5 Tablets by mouth daily. ??? ONDANSETRON HCL ORAL Take 4 mg by mouth 3 times daily. ??? potassium chloride (MICRO-K) 10 mEq capsule Take 2 Capsules by mouth daily. ??? sodium bicarbonate 650 mg tablet Take 4 Tablets by mouth 3 times daily. ??? traMADol (ULTRAM) 50 mg tablet Take 50 mg by mouth 2 times daily. (Patient not taking: Reportedon 10/31/2022) Current Facility-Administered Medications Medication Route Frequency ??? ceFAZolin (ANCEF) syringe 2 g intravenous PRE-OP ONCE And ??? metronidazole (FLAGYL) infusion 500 mg intravenous PRE-OP ONCE ??? lactated ringers (LR) infusion intravenous CONTINUOUS ??? lidocaine 1 % injection 2 mg intradermal PRN Allergies Allergen Reactions ??? Chantix [Varenicline] SEIZURES Lab Results Component Value Date WBC 7.66 12/13/2018 HGB 12.9 12/13/2018 PLT 371 12/13/2018 Lab Results Component Value Date NA 141 09/30/2021 K 4.1 09/30/2021 KEXT 4.0 10/02/2022 CL 105 09/30/2021 CLEXT 98 10/02/2022 CO2 29 09/30/2021 CO2EXT 37 10/02/2022 Lab Results Component Value Date BUN 23 09/30/2021 Lab Results Component Value Date CREATININE 1.70 (H) 09/30/2021 CREATININEEX 1.70 10/02/2022 No results found for: INR, PROTIME No results found for: PTT UPT: No results found for: PREGUR, PREGNANCYTE, HCGPREG COVID: Lab Results Component Value Date COVIDUV Negative 04/10/2021 Blood Type: No results found for: ABO, LABRH, LABANTI, SPECEXP EKG: ECHO: [x] None on file Cardiac Stress: [x] None on file Left Heart Cath: [x] None on file Pertinent Radiographs: [x] None NPO Status: Liquids: 0730 H20 Solids: [x] Prior to midnight Home Acetaminophen: Yes [x] No []. If, yes: Time: 1100. 1000 BP 96/69 (BP Cuff Location: Right arm) Temp 36.6 ??C (97.9 ??F) (Temporal) Resp 16 Ht (!) 149.9 cm (59) Wt (!) 34.4 kg (75 lb 13.4 oz) SpO2 98% BMI 15.32 kg/m?? Dental Exam: No teeth LDA: Physical Exam Airway Mallampati: II TM distance: >3 FB Neck ROM: full Cardiovascular Rhythm: regular Rate: normal Dental Pulmonary (+) decreased breath sounds Abdominal Anesthesia Plan ASA 3 Anesthesia Type - MAC Anesthesia plan and risks discussed. Informed consent obtained from patient. Specific risks discussed were vomiting and nausea. PAT Note Notes from 10/20/22 through 11/19/22 No notes of this type exist for this encounter. documented in this encounter Plan of Treatment Upcoming Encounters Date Type Department Care Team (Late st Contact Info) Description 04/07/2024 9:00 EST Office Visit [facility] Endocrinology - [address] [phone] Vincenzo Rawls MD [address] [facility] [address] [place] [phone] 08/22/2024 15:30 EDT Telemedicine [facility] Nephrology - [address] [phone] Jose L Whitlye MD [address] [place], [place] [address], Level 2 [place] [phone] documented as of this encounter Visit Diagnoses Not on filedocumented in this encounter Administered Medications Inactive Administered Medications - up to 3 most recent administrations Medication Order MAR Action Action Date Dose Rate Site fentaNYL citrate (PF) injection intravenous, PRN, Starting on Thu11/19/22 at 1214, Until Thu11/19/22 at 1256, Routine, Anesthesia Intraprocedure Given 11/19/2022 12:14 EDT 25 mcg ketAMINE in NaCl, iso-osmotic (KETALAR) 50 mg/5 mL (10 mg/mL) IV injection intravenous, PRN, Starting on Thu11/19/22 at 1214, Until Thu11/19/22 at 1256, Routine, Anesthesia Intraprocedure Given 11/19/2022 12:14 EDT 10 mg lactated ringers (LR) infusion intravenous, FA IP EQF CONTINUOUS PRN FOR ONE STEP MEDS, Starting on Thu11/19/22 at 1149, Until Thu11/19/22 at 1256, Routine, Anesthesia Intraprocedure New Bag 11/19/2022 11:49 EDT midazolam (PF) (VERSED) injection intravenous, PRN, Starting on Thu11/19/22 at 1214, Until Thu11/19/22 at 1256, Routine, Anesthesia Intraprocedure Given 11/19/2022 12:14 EDT 1 mg propOFol (DIPRIVAN) injection intravenous, PRN, Starting on Thu11/19/22 at 1214, Until Thu11/19/22 at 1256, Routine, Anesthesia Intraprocedure Given 11/19/2022 12:30 EDT 10 mg Rate Change 11/19/2022 12:29 EDT 80 mcg/kg/min 16.512 mL/h r New Bag 11/19/2022 12:17 EDT 70 mcg/kg/min 14.448 mL/hr documented in this encounter Orders Medications Ordered That Gerald ht Not Have Been Administered Count Last Ordered Date First Ordered Date phenylephrine HCl in 0.9% NaCl injection 1 11/19/2022 documented in this encounter Care Teams Preparation Plant Repairer Relationship Specialty Start Date End Date Lynn Saavedra MD [address] [place] [phone] PCP - General 07/07/22 04/26/23 documented as of this encounter
--- OUTSIDE RECORDS SUMMARY | 2024-03-17 12:17 | XMS_ITS | Encounter Summary ---
Author Organization [facility] Address [address] [place] [address] Care Team Providers Care Scrap Metal Processing Worker Name Role Phone Jennifer Ordoñez APRN Primary Care Provider + Lynn Saavedra MD Primary Care Provider Chary Ordoñez Primary Care Provider [phone] Reason for Visit * Reason Onset Date Comments Appointment Related 04/17/2022 Encounter Details Date Type Department Care Team (Late st Contact Info) Description 04/17/2022 Telephone [facility] Nephrology - [address] [id number] Jose L Whitley MD [address] [place] [address], Level 2 [place] [address] Appointment Related Social History Tobacco Use Types [...] encounter Miscellaneous Notes * Telephone Encounter - Fritz Acevedo - 04/17/2022 1142 EST LM with man who answered the phone looking to see if pt would like to reschedule her missed appt with Dr. Whitley he said he would relay message and have her call. documented in this encounter Plan of Treatment Upcoming Encounters Date Type Department Care Team (Late st Contact Info) Description 04/07/2024 9:00 EST Office Visit [facility] Endocrinology - [facility] [address] [place] [address] Vincenzo Rawls MD 62 [facility] [address] [place] [address] 08/22/2024 15:30 EDT Telemedicine [facility] Nephrology - [address] [id number] Jose L [facility] Level 2 [place] [phone] documented as of this encounter Visit Diagnoses Not on filedocumented in this encounter Care Teams Scrap Metal Processing Worker Relationship Specialty Start Date End Date Jennifer Ordoñez APRN [address] [place] [address] PCP - General 03/22/18 07/06/22 Lynn Saavedra MD [address] [place] [address] PCP - General 07/07/22 04/26/23 Chary Ordoñez [address] [place] [address] PCP - General Family Medicine - Primary Care 04/27/23 documented as of this encounter
--- OUTSIDE RECORDS SUMMARY | 2024-03-17 12:17 | XMS_ITS | Encounter Summary ---
Author Organization [facility] Address [address] [place] [address] Care Team Providers Care Fiber Drier Operator Name Role Phone Lynn Saavedra MD Primary Care Provider Chary Ordoñez Primary Care Provider [phone] Reason for Visit * Reason Onset Date Comments Appointment Related 02/16/2023 Encounter Details Date Type Department Care Team (Late st Contact Info) Description 02/16/2023 Telephone [facility] Endocrinology - [facility] [address] [place] [address] Vincenzo Rawls MD [address] [place] [address] [place] [address] Appointment Related Social History Tobacco Use [...] Miscellaneous Notes * Telephone Encounter - Miranda Macdonald - 02/16/2023 1248 EST Left voicemail to reschedule 03-12-[address] Rawls due to the provider having surgery. PASC: Please reschedule for next available NPV with a Osteo provider, following provider change guidelines. documented in this encounter Plan of Treatment Upcoming Encounters Date Type Department Care Team (Late st Contact Info) Description 04/07/2024 9:00 EST Office Visit [facility] End[facility]ology - [facility] [address] [place] [address] Vincenzo Rawls MD 62 [facility] [address] [place] [address] 08/22/2024 15:30 EDT Telemedicine [facility] Nephrology - [address] [place] [address] [place], [place] [phone] Jose L Whitley MD 1 [facility], Level 2 [place] [phone] documented as of this encounter Visit Diagnoses Not on filedocumented in this encounter Care Teams Fiber Drier Operator Relationship Specialty Start Date End Date Lynn Saavedra MD [address] [place] [address] PCP - General 07/07/22 04/26/23 Chary Ordoñez [address] [place] [address] PCP - General Family Medicine - Primary Care 04/27/23 documented as of this encounter
--- OUTSIDE RECORDS SUMMARY | 2024-03-17 12:17 | XMS_ITS | Encounter Summary ---
Author Organization [facility] Address [address] [place] [address] Care Team Providers Care Pilot Boat Captain Name Role Phone Jennifer Ordoñez MAY Primary Care Provider + Reason for Visit * (Routine/Next Available) - Receiving Office to Obtain Authorization Specialty Diagnoses / Procedures Referred By Savannah ware Referred To Contact Procedures XR OUTSIDE IMAGES DEXA Imaging, External Referral ID Status Reason Start Date Expiration Date Visits Requested Visits Authorized [id number] Receiving Office to Obtain Authorization 2 1 1 Encounter Details Date Type Department Care Team (Latest Contact Info) Description 12/17/2021 - 12/17/2021 23:59 EDT Hospital Encounter [facility] Radiology - [facility] [place] [address] [place] [address] Discharge Disposition: Home or Self Care Social [...] this encounter Medications at Time of Discharge amitriptyline (ELAVIL) 10 mg tablet Take 2 Tablets by mouth at bedtime. 60 Tablet 5 10/22/2021 cyanocobalamin (VITAMIN B12) 1,000 mcg/mL injection Inject [...] Tablets by mouth 3 times daily. 09/01/2013 acetaminophen (TYLENOL) 325 mg tablet Take 3 Tabs by mouth every 6 hours. Please alternate taking with ibuprofen so you are taking one or the other every three hours. 1 Tab 10/27/2018 4 calcium carbonate/vitamin D3 (VITAMIN D-3 ORAL) Take by mouth. 4 cyclobenzaprine (FLEXERIL) 10 mg tablet Take 5 mg by mouth 3 times daily. 2 ergocalciferol (DRISDOL; VITAMIN D2) 50,000 unit capsule Take 50,000 Units by mouth every 7 days. 4 loratadine (CLARITIN) 10 mg tablet TAKE 1 TABLET BY MOUTH EVERY OTHER DAY FOR RUNNY NOSE OR ITCHY EARS 10/18/2021 3 magnesium oxide (MAG-OX) 400 mg tablet Take 800 mg by mouth daily. 09/01/2013 2 metoprolol (LOPRESSOR) 25 mg tablet Take 12.5 mg by mouth daily. 2 traMADol (ULTRAM) 50 mg tablet Take 50 mg by mouth 2 times daily. 4 documented as of this encounter Discharge Disposition Disposition Code Departure Means Destination Home or Self Care documented in this encounter Plan of Treatment Upcoming Encounters Date Type Department Care Team (Late st Contact Info) Description 04/07/2024 9:00 EST Office Visit [facility] Endocrinology - [address] [phone] Vincenzo Rawls MD [address] [place] [address] [address] [place] [address] 08/22/2024 15:30 EDT Telemedicine [facility] Nephrology - [address] [address] Jose L Whitley MD [address] [place], [place] [address], Level 2 [place] [address] documented as of this encounter Procedures Procedure Name Priority Date/Time Associated Diagnosis Comments XR OUTSIDE IMAGES DEXA Routine 12/17/2021 13:42 EDT documented in this encounter Results * XR OUTSIDE IMAGES DEXA (12/17/2021 13:42 EDT) Narrative [facility] - 03/14/2022 13:42 EST This is a non-reportable exam. us External Imaging IMG OTHER IMAGING ORDERABLES Fi nal Result [facility] documented in this encounter Visit Diagnoses Not on filedocumented in this encounter Care Teams Pilot Boat Captain Relationship Specialty Start Date End Date Jennifer Ordoñez, FIELD AGRONOMIST 4 [facility] [phone] PCP - General 03/22/18 07/06/22 documented as of this encounter
--- OUTSIDE RECORDS SUMMARY | 2024-03-17 12:17 | XMS_ITS | Encounter Summary ---
Author Organization [facility] Address [address] [place] [address] Care Team Providers Care Buildings And Grounds Coordinator Name Role Phone Jennifer Ordoñez MAY Primary Care Provider + Encounter Details Date Type Department Care Team (Late st Contact Info) Description 03/06/2022 Abstract [facility] Nephrology - S [address] [phone] Jose L Whitley MD 1 [facility], Level 2 [place] [address] Social History Tobacco Use Types [...] Assessment Author No 04/16/2018 12:00 Sa karlie Monique, RN * Are you blind or do [...] Info) Description 04/07/2024 9:00 EST Office Visit [facility] Endocrinology - [address] [phone] Vincenzo Rawls MD 62 [facility] [address] [place] [address] 08/22/2024 15:30 EDT Telemedicine [facility] Nephrology - [address] [phone] Jose L Whitley MD [address] [place] [address] Rehab, Level 2 [place] [address] documented as of this encounter Procedures Procedure Name Priority Date/Time Associated Diagnosis Comments MAGNESIUM Routine 03/05/2022 12:15 EST COMPREHENSIVE METABOLIC PANEL (CMP) Routine 03/05/2022 12:15 EST documented in this encounter Results * COMPREHENSIVE METABOLIC PANEL (CMP) (03/05/2022 12:15 EST) Pathologist [facility] GFR, Calculated, External 28.94 [facility] Glucose, Serum, External 94 [facility] Albumin, External 3.7 [facility] Total Alkaline Phosphatase, External 197 [facility] ALT, External 38 [facility] AST, External 40 [facility] BUN, External 21 [facility] Calculated Calcium, External [facility] Calcium, External 9.5 [facility] Chloride, External 103 [facility] CO2, External 29.0 [facility] Creatinine, External 1.9 [facility] Fasting?, External [facility] Potassium, External 4.9 [facility] Sodium, External 137 [facility] Total Protein, External 8.0 [facility] Bilirubin, Total, External 0.3 [facility] Blood VENOUS BLOOD / Unknown 03/05/2022 12:15 EST Historical Provider CHEMISTRY & BLOOD GAS ORD ERABLES Final Result Performing Organization Address City/[facility] Co de Phone Number [facility] * MAGNESIUM (03/05/2022 12:15 EST) [facility] Magnesium, External 1.9 [facility] Blood VENOUS BLOOD / Unknown 03/05/2022 12:15 EST Historical Provider CHEMISTRY & BLOOD GAS ORD ERABLES Final Result [facility] documented in this encounter Visit Diagnoses Not on filedocumented in this encounter Care Teams Buildings And Grounds Coordinator Relationship Specialty Start Date End Date Jennifer Ordoñez, MANAGER OCCUPATIONAL [address] [place] [address] PCP - General 03/22/18 07/06/22 documented as of this encounter
--- OUTSIDE RECORDS SUMMARY | 2024-03-17 12:17 | XMS_ITS | Encounter Summary ---
Author Organization [facility] Address [address] [place] [address] Care Team Providers Care Remedial Teacher Name Role Phone Lynn Saavedra MD Primary Care Provider [phone] Reason for Visit * Reason Comments Chronic Kidney Disease 6 months' follow up on a 67-yo female with a history of??ERNESTINA on CKD in a??then??64-yo female with PMH??for??CKD, Crohn's Disease,??metabolic acidosis, nephrocalcinosis and RTA with hypomagnesemia. Episodes of ERNESTINA noted??and the EMR data show that the recurring episodes of ERNESTINA were related to dehydration from diarrhea caused by the Crohn's Disease. The latest creatinine??from 01/07/23 was 1.71 mg/dL (eGFR=30) at baseline in the past 1 year. Encounter Details Date Type Department Care Team (Late st Contact Info) Description 02/02/2023 15:00 EST Telemedicine [facility] Nephrology - S [address] [phone] Jose L Whitley MD [address] [place] [address], Level [address] [place] [address] Stage 3b chronic kidney disease [...] - Inhaled Oxygen Concentration - - Weight - - Height 149.9 cm (4' 11.02) 02/02/2023 1501 EST Body Mass Index - - documented in this encounter Functional Status * Are you deaf or do you have serious difficulty hearing? Answer Date of Assessment Author No 04/16/2018 12:00 Sa karlie Monique RN * Are you blind or do you have serious difficulty seeing, even when wearing glasses? Answer Date of Assessment Author No 04/16/2018 12:00 Sa karlie Moniqeu RN * Do you have serious difficulty [...] karlie Monique RN documented in this encounter Patient Instructions * Patient Instructions* Jose L Whitley MD - 02/02/2023 15:00 EST Nephrology Profile every 2 months. RTC in 6 months. documented in this encounter Progress Notes * Jose L Whitley MD - 02/02/2023 1500 EST This visit was conducted by telephone with consent given by the patients. During the visit, the patient's symptoms, weight, BP, medication usage and recent laboratory test results were reviewed. The telephone call lasted 30 minutes. Home Phone Work Phone NEPHROLOGY OFFICE FOLLOW UP VISIT NOTE SUBJECTIVE 6 months' follow up on a 67-yo female with a history of??ERNESTINA on CKD in a??then??64-yo female with PMH??for??CKD, Crohn's Disease,??metabolic acidosis, nephrocalcinosis and RTA with hypomagnesemia. Episodes of ERNESTINA noted??and the EMR data show that the recurring episodes of ERNESTINA were related to dehydration from diarrhea caused by the Crohn's Disease. The latest creatinine??from 01/07/23 was 1.71 mg/dL (eGFR=30) at baseline in the past 1 year. 01/31/2023 Chief Complaint Patient presents with ??? Chronic Kidney Disease 6 months' follow up on a 67-yo female with a history of??ERNESTINA on CKD in a??then??64-yo female with PMH??for??CKD, Crohn's Disease,??metabolic acidosis, nephrocalcinosis and RTA with hypomagnesemia. Episodes of ERNESTINA noted??and the EMR data show that the recurring episodes of ERNESTINA were related to dehydration from diarrhea caused by the Crohn's Disease. The latest creatinine??from 01/07/23 was 1.71 mg/dL (eGFR=30) at baseline in the past 1 year. HPI As above. General - Not good. My has been in ICU at [place] for weeks now. He has pneumonia and there is a plan to have some chest surgery tomorrow. Breathing - Okay; the stress from the 's illness has been tiring. Cough - None. New leg swelling - None. Weight - 72 lb. She is trying to eat more. Dizzy/Light-headed - Sometimes. A neighour helps transport her to and fro the hospital. Appetite - This has not been the greatest but she still eats okay. Nausea/Vomiting - None. Sleep - She gets home in [place] from the hospital. Patient Active Problem List Diagnosis ??? Chronic kidney disease, stage III (moderate) (HCC-CMS) ??? Tachycardia ??? Hematuria ??? Diarrhea with dehydration ??? Nephrocalcinosis ??? Renal tubular acidosis ??? Nephrolithiasis ??? Crohn's disease (HCC-CMS) ??? Fibromyalgia ??? Disruption of perineal wound ??? Perineal fistula ??? PONV (postoperative nausea and vomiting) Past Medical History: Diagnosis Date ??? Anemia Noted 11/11/22: 05/16/22: HCT 41.2. HGB 13.4 ??? Anomaly, cardiac tachycardia ??? Arrhythmia Noted 11/11/22: Hx of tachycardia, on Metoprolol, no current symptoms ??? Chronic kidney disease, stage III (moderate) ([facility]-CMS) Noted 11/10/22: Stage 3 ??? Crohn's disease ([facility]) Noted 11/11/22: s/p colectomy and small bowel [...] Renal tubular acidosis Noted 11/11/22: dx at [facility], after bowel surgery ??? Seizures (HCC-CMS) Noted 11/11/22: Due to taking Chantix ??? Tachycardia Noted 11/11/22: rx with b-charu, asymptomatic Past Surgical History: Procedure Laterality Date ??? COLON SURGERY ??? HYSTERECTOMY ??? ILEOSTOMY OR JEJUNOSTOMY 1983 ??? RECTAL SURGERY anus removal 03/2018, debridement 10/2018 ??? SMALL INTESTINE SURGERY ??? TOTAL COLECTOMY Current Outpatient Medications Medication ??? acetaminophen (TYLENOL) 325 mg tablet ??? amitriptyline (ELAVIL) 10 mg tablet ??? calcium carbonate/vitamin D3 (VITAMIN D-3 ORAL) ??? cyanocobalamin (VITAMIN B12) 1,000 mcg/mL injection ??? cyclobenzaprine (FLEXERIL) 5 mg tablet ??? DULoxetine (CYMBALTA) 30 mg delayed release capsule ??? ergocalciferol (DRISDOL; VITAMIN D2) 50,000 unit capsule ??? estradioL (ESTRACE) 0.5 mg tablet ??? FOLIC ACID ORAL ??? GINKGO BILOBA ORAL ??? GINSENG ORAL ??? loperamide (IMODIUM) 2 mg capsule ??? Magnesium Oxide 500 mg capsule ??? metoprolol SUCCinate (TOPROL-XL) 25 mg tablet ??? ONDANSETRON HCL ORAL ??? potassium chloride (MICRO-K) 10 mEq capsule ??? sodium bicarbonate 650 mg tablet ??? traMADol (ULTRAM) 50 mg tablet ??? traMADol (ULTRAM) 50 mg tablet No current facility-administered medications for this visit. Allergies Allergen Reactions ??? Chantix [Varenicline] SEIZURES Social History Tobacco Use ??? Smoking status: Every Day Current packs/day: 0.25 Average packs/day: 0.2 packs/day for 46.3 years (11.6 ttl pk-yrs) Types: Cigarettes Start date: 10/10/1976 ??? Smokeless tobacco: Never ??? Tobacco comments: 5 cigarettes daily Substance Use Topics ??? Alcohol use: Yes Comment: rarely ??? Drug use: Yes Types: Marijuana Comment: smoking at night Family History Problem Relation Age of Onset ??? *Other(comment) Mother ??? Pancreatic Cancer Mother REVIEW OF SYSTEMS A ten point ROS was performed and was negative except for pertinent positives in the HPI There were no vitals taken for this visit. Phone visit. Jose L Whitley MD 01/31/2023 16:04 Lab Results Component Value Date K 4.1 [...] PROTEINUA, UROBILINOGEN, NITRITE, LEUKESTER ASSESSMENT & PLAN CKD III/IV - 6 months' follow up on a 67-yo female with a history of??ERNESTINA on CKD in a??then??64-yo female with PMH??for??CKD, Crohn's Disease,??metabolic acidosis, nephrocalcinosis and RTA with hypomagnesemia. Episodes of ERNESTINA noted??and the EMR data show that the recurring episodes of ERNESTINA were related to dehydration from diarrhea caused by the Crohn's Disease. The latest creatinine??from 01/07/23was 1.71 mg/dL (eGFR=30) at baseline in the past 1 year. Missed appointment 01/05/23. Follow Nephrology Profile every 2 months and RTC in 6 months. Labs from 12/05/22 - K 3.6, bicarb 32, albumin 3.5, Ca 9.2. Metabolic acidosis - On Na bicarbonate. Bicarb was 30 in December 2022. ?? Hematology - Hb was 13.4 in May 2022. Follow every 3 months. ?? Metabolic bone disease - Ca was 9.5 in Dec 2022. PTH was 129 in November 2018. To recheck PTH and phosphorus. ?? Magnesium was 1.9 in February 2022. Needs to be followed. documented in this encounter Plan of Treatment Upcoming Encounters Date Type Department Care Team (Late st Contact Info) Description 04/07/2024 9:00 EST Office Visit [facility] Endocrinology - [address] [address] Vincenzo Rawls MD [address] [place] [address] [address] [place] [address] 08/22/2024 15:30 EDT Telemedicine [facility] Nephrology - [address] [place] [address] [place], [place] [address] Jose L Whitley MD 1 [facility] Level [address] [place] [phone] documented as of this encounter Visit Diagnoses Diagnosis Stage 3b chronic kidney disease (HCC-CMS)- Primary documented in this encounter Care Teams Remedial Teacher Relationship Specialty Start Date End Date Lynn Saavedra MD [address] [place] [phone] PCP - General 07/07/22 04/26/23 documented as of this encounter
--- OUTSIDE RECORDS SUMMARY | 2024-03-17 12:17 | XMS_ITS | Encounter Summary ---
Author Organization [facility] Address [address] [place] [address] Care Team Providers Care Paste Worker Name Role Phone Jennifer Ordoñez APRN Primary Care Provider + Lynn Saavedra MD Primary Care Provider Chary Ordoñez Primary Care Provider [phone] Encounter Details Date Type Department Care Team (Late st Contact Info) Description 05/17/2022 Lab Requisition [facility] Pathology & Laboratory Medicine - [address] [address] Outr Resulting Lab, Provider Social History Tobacco [...] Info) Description 04/07/2024 9:00 EST Office Visit [facility] Endocrinology - [facility] [address] [place], [place] [phone] Vincenzo Rawls MD 62 [facility] [address] [place] [address] 08/22/2024 15:30 EDT Telemedicine [facility] Nephrology - [address] [address] Jose L Whitley MD [address] [place] [address], Level [address] [place] [phone] documented as of this encounter Procedures Procedure Name Priority Date/Time Associated Diagnosis Comments HEPATITIS A TOTAL ANTIBODY W REFLEX Routine 05/16/2022 9:55 EST documented in this encounter Results * HEPATITIS A TOTAL ANTIBODY W REFLEX (05/16/2022 9:55 EST) Hepatitis A Antibody, Total Negative Negative 05/19/2022 11:10 EST [facility] Blood VENOUS BLOOD / Unknown 05/16/2022 9:55 EST 05/17/2022 22:00 EST Narrative [facility] - 05/19/2022 11:10 EST The result of this assay can be falsely elevated (Positive) due to the consumption of Biotin. us Provider Outr Resulting Lab CHEMISTRY & BLOOD GA S ORDERABLES Final Result [facility] [address] [place] [address] documented in this encounter Visit Diagnoses Not on filedocumented in this encounter Care Teams Paste Worker Relationship Specialty Start Date End Date Jennifer Ordoñez APRN [address] [place] [address] PCP - General 03/22/18 07/06/22 Lynn Saavedra MD [address] [place] [address] PCP - General 07/07/22 04/26/23 Chary Ordoñez [address] [place] [address] PCP - General Family Medicine - Primary Care 04/27/23 documented as of this encounter
--- OUTSIDE RECORDS SUMMARY | 2024-03-17 12:17 | XMS_ITS | Encounter Summary ---
Author Organization [facility] Address [address] [place] [address] Care Team Providers Care Senior Estimator Name Role Phone Lynn Saavedra MD Primary Care Provider [phone] Reason for Referral * Specialty Diagnoses / Procedures Referred By Savannah ware [place] [address] Phone: tel: Referral ID Status Reason Start Date Expiration Date Visits Re quested Visits Authorized Comments Please call our clinic at [phone] to schedule a follow up appointment with your surgeon in 2-3 weeks. 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 Operating Room [address] [place] [address] Ryan Ruiz MD [address] [place] [address], [facility] [address] [place] [address] Discharge Disposition: Home or Self [...] Sign Reading Time Taken Comments Blood Pressure 110/77 11/19/2022 1400 EDT Pulse - - Temperature 36 ??C (96.8 ??F) 11/19/2022 1400 EDT Respiratory Rate 16 11/19/2022 1102 EDT Oxygen Saturation 100% 11/19/2022 1400 EDT Inhaled Oxygen Concentration - - Weight 34.4 kg (75 lb 13.4 oz) 11/19/2022 1041 E DT Height 149.9 cm (4' 11) 11/19/2022 1041 EDT Body Mass Index 15.32 11/19/2022 1041 EDT documented in this encounter Functional Status * [...] karlie Monique RN documented in this encounter Discharge Instructions * Discharge Instructions* Jimmie Dickey MD - 11/19/2022 13:02 EDT Please change the packing in the wound one time per day with the iodoform strips that are included in your discharge. We recommend taking out the packing, showering, and then repacking the wound. documented in this encounter Medications at Time [...] (VITAMIN D-3 ORAL) Take by mouth. 4 ergocalciferol (DRISDOL; VITAMIN D2) 50,000 unit capsule Take 50,000 Units by mouth every 7 days. 4 GINKGO BILOBA ORAL Take by mouth every morning. 4 GINSENG ORAL Take by mouth every morning. 4 traMADol (ULTRAM) 50 mg tablet Take 50 mg by mouth 2 times daily. 4 documented as of this encounter Discharge Disposition Disposition Code Departure Means Destination Comment s Home or Self Assisted documented in this encounter H&P Notes * Jimmie Dickey MD - 11/19/2022 1153 EDT The preoperative history and physical which was performed within 30 days of this procedure has been reviewed and the clinically appropriate elements of the physical examination have been repeated. There are no changes to the documented history and physical or if so such changes are documented below Cardiac RRR Pulm CTAB JIMMIE DICKEY MD 11/19/2022 11:53 PGY-1 Gen Surg Cosigned by Ryan Ruiz MD at 11/19/2022 12:04 EDT Source Note - Ryan Ruiz MD - 10/31/2022 11:45 EDT Subjective: Patient ID: Zaira Collins is an 67 y.o. female. Chief Complaint Patient presents with ??? Follow-up Perineal fistula HPI Here for annual followup of her perineum s/p removal of anus in 2018 and seton in 2020. Continues to have drainage on pad daily. No pressure build up, just the drainage. Patient Active Problem List Diagnosis ??? Chronic kidney disease, stage III (moderate) (HCC) (HCC-CMS) ??? Tachycardia ??? Hematuria ??? Diarrhea with dehydration ??? Nephrocalcinosis ??? Renal tubular acidosis ??? Nephrolithiasis ??? Crohn's disease (HCC-CMS) (HCC) (HCC-CMS) ??? Fibromyalgia ??? Disruption of perineal wound ??? Perineal fistula Past Medical History: Diagnosis Date ??? Anemia ??? Anomaly, cardiac tachycardia ??? Arrhythmia tachy ??? Chronic kidney disease, stage III (moderate) (HCC) (HCC-CMS) ??? Crohn's disease (HCC-CMS) (HCC) (HCC-CMS) s/p colectomy and small bowel resections with ileostomy ??? Depression ??? Diarrhea with dehydration leading to recurrent episodes of ERNESTINA ??? Does not exercise ??? Fibromyalgia ??? Heart murmur ??? Hematuria cystoscopy, renal CT, cytology unremarkable ??? Hepatitis age 31 ??? History of general anesthesia ??? Mental disorder Depression ??? 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 Nephrolithiasis unknown type, required procedrues for removal; no recent stones ??? Open wound of skin rectum ??? Postprocedural non-healing wound small cavity anus ??? Renal tubular acidosis dx at [facility], after bowel surgery ??? Seizures (HCC-CMS) just one from chantex ??? Tachycardia rx with b-charu, asymptomatic Past Surgical History: Procedure Laterality Date ??? COLON SURGERY ??? HYSTERECTOMY ??? ILEOSTOMY OR JEJUNOSTOMY 1983 ??? RECTAL SURGERY anus removal 03/2018, debridement 10/2018 ??? SMALL INTESTINE SURGERY ??? TOTAL COLECTOMY Family History Problem Relation Age of Onset ??? *Other(comment) Mother ??? Pancreatic Cancer Mother ??? Stomach Cancer Neg Hx ??? Rectal Cancer Neg Hx ??? Esophageal Cancer Neg Hx ??? Colon Cancer Neg Hx Social Social History Tobacco Use ??? Smoking status: Every Day Packs/day: 0.25 Years: 45.00 Additional pack years: 0.00 Total pack years: 11.25 Types: Cigarettes Start date: 10/10/1976 ??? Smokeless tobacco: Never Substance Use Topics ??? Alcohol use: No Comment: rarely ??? Drug use: Yes Frequency: 14.0 times per week Types: Marijuana Comment: twice daily, smokes Current Outpatient Medications on File Prior to Visit Medication Sig Dispense Refill ??? acetaminophen (TYLENOL) 325 mg tablet Take 3 Tabs by mouth every 6 hours. Please alternate taking with ibuprofen so you are taking one or the other every three hours. (Patient not taking: Reported on 2021) 1 Tab 0 ??? amitriptyline (ELAVIL) 10 mg tablet Take 2 Tablets by mouth at bedtime. (Patient not taking: Reported on 10/31/2022) 60 Tablet 5 ??? calcium carbonate/vitamin D3 (VITAMIN D-3 ORAL) Take by mouth. ??? cyanocobalamin (VITAMIN B12) 1,000 mcg/mL injection Inject 1 mL into the muscle every 28 days. ??? cyclobenzaprine (FLEXERIL) 5 mg tablet TAKE ONE TABLET BY MOUTH THREE TIMES A DAY NEEDED ??? DULoxetine (CYMBALTA) 60 mg capsule Take 30 mg by mouth daily. ??? ergocalciferol (DRISDOL; VITAMIN D2) 50,000 unit capsule Take 50,000 Units by mouth every 7 days. (Patient not taking: Reported on 07/07/2022) ??? ESTRADIOL ORAL Take 0.5 Tablets by mouth daily. ??? FOLIC ACID ORAL Take 1 Tab by mouth daily. ??? loperamide (IMODIUM) 2 mg capsule TAKE 1-2 CAPSULES BY MOUTH ONCE DAILY NEEDED FOR TO CONTROL OSTOMY OUTPUT ??? loratadine (CLARITIN) 10 mg tablet TAKE 1 TABLET BY MOUTH EVERY OTHER DAY FOR RUNNY NOSE OR ITCHY EARS (Patient not taking: Reported on 07/07/2022) ??? Magnesium Oxide 500 mg capsule Take [...] times daily. (Patient not taking: Reportedon 10/31/2022) No current facility-administered medications on file prior to visit. Allergies Allergen Reactions ??? Chantix [Varenicline] SEIZURES Review of Systems Constitutional: Negative for chills, fever and weight loss. Respiratory: Negative for shortness of breath. Cardiovascular: Negative for chest pain and palpitations. Gastrointestinal: Negative for abdominal pain and blood in stool. Endo/Heme/Allergies: Does not bruise/bleed easily. - See HPI Objective: BP 138/82 Pulse 90 Ht (!) 149.9 cm (59.02) Wt (!) 34.2 kg (75 lb 6.4 oz) BMI 15.22 kg/m?? Physical Exam Constitutional: General: She is not in acute distress. Appearance: She is well-developed and well-nourished. Eyes: General: No scleral icterus. Pupils: Pupils are equal, round, and reactive to light. Cardiovascular: Rate and Rhythm: Normal rate and regular rhythm. Heart sounds: No murmur heard. Pulmonary: Effort: Pulmonary effort is normal. No respiratory distress. Breath sounds: Normal breath sounds. Abdominal: General: There is no distension. Palpations: Abdomen is soft. There is no mass. Tenderness: There is no abdominal tenderness. Genitourinary: Comments: Perineum stable in appearance, epithelialized opening in perineal incision scar, no palpable abscess. No seton. Musculoskeletal: General: No edema. Normal range of motion. Skin: General: Skin is warm and dry. Coloration: Skin is not pale. Findings: No rash. Neurological: Mental Status: She is alert and oriented to person, place, and time. Psychiatric: Behavior: Behavior normal. Judgment: Judgment normal. 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 Plan: EUA with curretage of any cavities and tracts and then can replace the seton. (N36.0) Perineal fistula (primary encounter diagnosis) Plan: CASE REQUEST OPERATING ROOM, CASE REQUEST OPERATING ROOM Ryan Ruiz MD No orders of the defined types were placed in this encounter. documented in this encounter Nursing Notes * Olimpia Ocampo RN - 11/19/2022 1138 EDT oders ask if pt on beta charu. Pt does take a beta charu metoprolol 1/2 tab last taken this morning. Dr. Cheikh Mancia aware. documented in this encounter OR Notes * OR Surgeon - Ryan Ruiz MD - 11/19/2022 0958 EDT OPERATIVE REPORT SERVICE DATE: 11/19/2022 PREOPERATIVE DIAGNOSIS: Anovaginal fistula. POSTOPERATIVE DIAGNOSES: Anovaginal fistula, perianal abscess. PROCEDURE: Drainage of a periorbital abscess and placement of a draining Seton. SURGEON: Ryan Ruiz MD FACS FASCRS CONVENTION WORKER: Jimmie Dickey MD; and Louise Trujillo MS3 ANESTHESIA: Local with IV sedation. INDICATIONS: Cynthia is a woman with a chronic history of Crohn disease. Has had perianal disease for many years. Undergone anectomy in the past and has had trouble with a chronic perineal wound. Recently came to the office and the Seton had fallen out and she is having drainage that was daily and bothersome. I explained the rationale for opening up the wound and draining out the abscess as well as replacing the Seton to prevent future problems. NARRATIVE: The patient was brought to the operating room and placed in supine position on the OR table. SCDs were applied. After completing a safety checklist. She was given IV sedation by the anesthesiology team. She was then placed in lithotomy position with careful padding of the extremities. The perineum was then prepped and draped in the usual sterile fashion. A final pause was held with correct patient and procedure to be performed was confirmed by those present. Bilateral pudendal nerve and anterior field blocks were performed with a buffered solution of long and short-acting local anesthetic. Examination revealed the perineal wound with good scarring, but in the posterior aspect there was some granulation tissue that undermined the scar heading in an anter ior direction. At the anterior aspect of the scar, there was an epithelialized fistula tract that tracked up to the vaginal introitus. Local anesthetic was injected into the scar overlying the abscess cavity. We then used electrocautery to open up that abscess cavity from where the granulation tissue was posteriorly, anteriorly towards the fistula opening. The cavity was then curetted clean of granulation tissue and cautery was used for hemostasis. A vessel loop was brought through the anovaginal fistula and secured to itself with silk ties to create a draining Seton. The wound was packed, gauze and mesh panties were used for dressing. I was present and scrubbed for the entire case. Unless otherwise noted, there were no complications, no blood loss, no cultures obtained, no specimens removed, and no drains retained. Ryan Ruiz MD FACS FASCRS / /JEANNETTE Confirmation: [id number] Dictation ID: [id number] cc: Lynn Saavedra MD, [place] [address] documented in this encounter Miscellaneous Notes * Brief Op Note - Jimmie Dickey MD - 11/19/2022 1257 EDT Date: 11/19/2022 Location: [facility] OR Name: Zaira Collins, : 1955, Diagnosis Pre-Op Diagnosis Codes: * Perineal fistula [N36.0] Post-op Diagnosis * Perineal fistula [N36.0] Procedures * EXAM UNDER ANESTHESIA, ANORECTAL, possible abscess drainage, possible seton placement * I+D,RECTAL ABSCESS, W/FIST/OTOMY,W/WO SETON Surgeons * Ryan Ruiz MD - Primary * Jimmie Dickey MD - Resident - Assisting Procedure Summary Anesthesia: Monitored Anesthesia Care ASA: III Estimated Blood Loss: 5 mL Total IV Fluids: 50 mL LDAs: Peripheral IV 11/19/22 1127 Posterior;Right Hand (Active) Wound 11/19/22 Rectum (Active) Staff: Home Energy Consultant Supervisor: Karthik Skinner RN Relief Home Energy Consultant Supervisor: Briseida Roper RN Scrub Person: Wisam Huang RN Indications: Zaira Collins is an 67 y.o. female who is having surgery for Perineal fistula [N36.0] Findings: fistula communicating to the vagina, seton placed, perianal abscess packed with iodoform Complications: None; patient tolerated the procedure well. Disposition: PACU - hemodynamically stable. Condition: stable Specimens Collected: No specimens collected during this procedure. JIMMIE DICKEY MD PGY-1 General Surgery documented in this encounter Plan of Treatment Upcoming Encounters Date Type Department Care Team (Late st Contact Info) Description 04/07/2024 9:00 EST Office Visit [facility] Endocrinology - [address] [address] Vincenzo Rawls MD [address] [place] [address] [address] [place] [address] 08/22/2024 15:30 EDT Telemedicine [facility] Nephrology - [address] [id number] Jose L Whitley MD [address] [place] [address], [address] [place] [id number] Scheduled Referrals Name Type Priority Associated Diagnoses Order Schedule PROVIDER FOLLOW-UP INSTRUCTIONS Outpatient Referral Routine Ordered: 11/19/2022 PROVIDER FOLLOW-UP INSTRUCTIONS Outpatient Referral Routine Ordered: 11/19/2022 documented as of this encounter Procedures Procedure Name Priority Date/Time Associated Diagnosis Comments I+D,RECTAL ABSCESS, W/FIST/OTOMY,W/WO SETON 11/19/2022 11:59 EDT Perineal fistula Special Needs Lithotomy EXAM UNDER ANESTHESIA, ANORECTAL 11/19/2022 11:59 EDT Perineal fistula Special Needs Lithotomy documented in this encounter Visit Diagnoses Diagnosis Perineal fistula- Primary Urethral fistula PONV (postoperative nausea and vomiting) Nausea with vomiting documented in this encounter Admitting Diagnoses Diagnosis Perineal fistula Urethral fistula documented in this encounter Administered Medications Inactive Administered Medications - up to 3 most recent administrations Medication Order MAR Action Action Date Dose Rate Site acetaminophen (TYLENOL) tablet 1,000 mg 1,000 mg, oral, PRE-OP ONCE, 1 dose, On Thu11/19/22 at 1100, Routine, Preprocedure Given 11/19/2022 11:08 EDT 1,000 mg gabapentin (NEURONTIN) capsule 600 mg 600 mg, oral, PRE-OP ONCE, 1 dose, On Thu11/19/22 at 1100, Routine, Preprocedure Given 11/19/2022 11:08 EDT 600 mg ibuprofen (MOTRIN) tablet 600 mg 600 mg, oral, PRE-OP ONCE, 1 dose, On Thu11/19/22 at 1100, Routine, Preprocedure Given 11/19/2022 11:08 EDT 600 mg lactated ringers (LR) infusion 25 mL/hr, intravenous, CONTINUOUS, Starting on Thu11/19/22 at 1100, Until Thu11/19/22 at 1710, Routine, Preprocedure New Bag 11/19/2022 11:28 EDT 25 mL/hr 25 mL/hr metronidazole (FLAGYL) infusion 500 mg 500 mg, intravenous, Administer over 30 Minutes, PRE-OP ONCE, 1 dose, On Thu11/19/22 at 1100, Type of Therapy: Prophylaxis, Suspected Indication (Select all that apply): Colorectal surgery, Routine, Preprocedure Given 11/19/2022 12:05 EDT 500 mg documented in this encounter Discontinued Medications Medication Sig Discontinue Reason Start Date End Da te loratadine (CLARITIN) 10 mg tablet TAKE 1 TABLET BY MOUTH EVERY OTHER DAY FOR RUNNY NOSE OR ITCHY EARS 10/18/2021 11/19/2022 documented as of this encounter Active and Recently Administered Medications Times are shown in EDT. Scheduled Medication Order 11/17/2022 11/18/2022 11/19/2022 acetaminophen (TYLENOL) tablet 1,000 mg (COMPLETED) 1,000 mg, oral, PRE-OP ONCE, 1 dose, On Thu11/19/22 at 1100, Routine, Preprocedure 1108 (Given - Provid er: Olimpia Ocampo RN) gabapentin (NEURONTIN) capsule 600 mg (COMPLETED) 600 mg, oral, PRE-OP ONCE, 1 dose, On Thu11/19/22 at 1100, Routine, Preprocedure 1108 (Given - Provid er: Olimpia Ocampo RN) ibuprofen (MOTRIN) tablet 600 mg (COMPLETED) 600 mg, oral, PRE-OP ONCE, 1 dose, On Thu11/19/22 at 1100, Routine, Preprocedure 1108 (Given - Provid er: Olimpia Ocampo RN) metronidazole (FLAGYL) infusion 500 mg (COMPLETED)(Linked Group 1) 500 mg, intravenous, Administer over 30 Minutes, PRE-OP ONCE, 1 dose, On Thu11/19/22 at 1100, Type of Therapy: Prophylaxis, Suspected Indication (Select all that apply): Colorectal surgery, Routine, Preprocedure 1205 (Given - Provid er: Olimpia Ocampo RN) Continuous Medication Order 11/17/2022 11/18/2022 11/19/2022 lactated ringers (LR) infusion 25 mL/hr, intravenous, CONTINUOUS, Starting on Thu11/19/22 at 1100, Until Thu11/19/22 at 1710, Routine, Preprocedure 1128 (New Bag - Prov ider: Olimpia Ocampo RN)1207 (Canceled Entry - Provider: MARY Ochoa - Comment: Switch to gravity)1208 (Canceled Entry - Provider: MARY Ochoa) PRN Medication Order 11/17/2022 11/18/2022 11/19/2022 lidocaine 1 % 30 mL, BUPivacaine (PF) (MARCAINE) 0.5% 30 mL (CANCELED) PRN, Starting on Thu11/19/22 at 1233, Until Thu11/19/22 at 1250, Routine, Intraprocedure 1233 (Canceled Entry - Provider: Ryan Ruiz MD)1248 (Canceled Entry - Provider: Ryan Ruiz MD)1249 (Given - Provider: Ryan Ruiz MD) sodium bicarbonate 4.2 % (0.5 mEq/ml) injection (CANCELED) PRN, Starting on Thu11/19/22 at 1232, Until Thu11/19/22 at 1250, Routine, Intraprocedure 1232 (Given - Provid er: Ryan Ruiz MD) Linked Groups Order Group 1: ceFAZolin (ANCEF) syringe 2 g (CANCELED) 2 g, intravenous, Administer over 5 Minutes, PRE-OP ONCE, 1 dose, On Thu11/19/22 at 1100, Routine, Preprocedure And metronidazole (FLAGYL) infusion 500 mg (COMPLETED)Jump to med 500 mg, intravenous, Administer over 30 Minutes, PRE-OP ONCE, 1 dose, On Thu11/19/22 at 1100, Type of Therapy: Prophylaxis, Suspected Indication (Select all that apply): Colorectal surgery, Routine, Preprocedure documented in this encounter Orders Medications Ordered That Gerald ht Not Have Been Administered Count Last Ordered Date First Ordered Date atropine 0.1 mg/mL syringe 0.5 mg 1 023 ceFAZolin (ANCEF) syringe 2 g 1 11/19/2022 diphenhydrAMINE (BENADRYL) i njection 12.5 mg 1 11/19/2022 fentaNYL citrate (PF) injection 25-50 mcg 1 11/19/2022 lactated ringers (LR) infusion 1 11/19/2022 lidocaine 1 % 30 mL, BUPivac turner (PF) (MARCAINE) 0.5% 30 mL 1 11/19/2022 lidocaine 1 % injection 2 mg 1 11/19/2022 naloxone (NARCAN) injection 0.2 mg 1 2022 ondansetron (PF) (ZOFRAN) injection 4 mg 1 11/19/2022 sodium bicarbonate 4.2 % (0. 5 mEq/ml) injection 1 11/19/2022 Diet Count Last Ordered Date First Orde red Date DISCHARGE DIET 1 11/19/2022 Nursing Count Last Ordered Date First Orde red Date ACTIVITY INSTRUCTIONS 1 11/19/2022 BATHING INSTRUCTIONS 1 11/19/2022 DRIVING INSTRUCTIONS 1 11/19/2022 INSERT PERIPHERAL IV 1 11/19/2022 NURSING COMMUNICATION 4 11/19/2022 WOUND CARE INSTRUCTIONS 2 11/19/2022 Discharge Count Last Ordered Date First Orde red Date DISCHARGE PATIENT 1 11/19/2022 Legal Count Last Ordered Date First Orde red Date MISCELLANEOUS DISCHARGE INSTRUCTIONS 2 08/2022 documented in this encounter Care Teams Senior Estimator Relationship Specialty Start Date End Date Lynn Saavedra MD [address] [place] [address] PCP - General 07/07/22 04/26/23 documented as of this encounter
--- OUTSIDE RECORDS SUMMARY | 2024-03-17 12:17 | XMS_ITS | Encounter Summary ---
Author Organization [facility] Address [address] [place] [address] Care Team Providers Care Claims Correspondence Clerk Name Role Phone Lynn Saavedra MD Primary Care Provider [phone] Chary Ordoñez Primary Care Provider Reason for Visit * Reason Onset Date Comments Appointment Related 09/02/2022 Encounter Details Date Type Department Care Team (Late st Contact Info) Description 09/02/2022 Telephone [facility] - [address] [address] Brent Jaime MD Appointment Related [...] Miscellaneous Notes * Telephone Encounter - Mikayla Deng - 09/02/2022 1302 EDT Patient had rescheduled appointment back in April due to providers schedule changed. Patient is scheduled for September with Endocrinology. Left message on machine for patient informing of date/time and location and placed appointment reminder letter in the mail to patient home address. * Telephone Encounter - Aileen Muro - 09/02/2022 0957 EDT Pt is at info desk w/ [facility]. Could not find her appt location and did try to call. Please call pt LEVAR, as they did travel to get here. I was unable to reach PSS. documented in this encounter Plan of Treatment Upcoming Encounters Date Type Department Care Team (Late st Contact Info) Description 04/07/2024 9:00 EST Office Visit [facility] Endocrinology - [address], [place] [phone] Vincenzo Rawls MD [address] [facility] [address] [place] [address] 08/22/2024 15:30 EDT Telemedicine [facility] Nephrology - [facility] [address] [place] [address] Jose L Whitley MD [facility] [address] [place] [address] documented as of this encounter Visit Diagnoses Not on filedocumented in this encounter Care Teams Claims Correspondence Clerk Relationship Specialty Start Date End Date Lynn Saavedra MD [address] [place] [address] PCP - General 07/07/22 04/26/23 Chary Ordoñez [address] [place] [address] PCP - General Family Medicine - Primary Care 04/27/23 documented as of this encounter
--- OUTSIDE RECORDS SUMMARY | 2024-03-17 12:17 | XMS_ITS | Encounter Summary ---
Author Organization [facility] Address [address] [place] [address] Care Team Providers Care Rag Shredder Name Role Phone Lynn Saavedra MD Primary Care Provider [phone] Chary Ordoñez Primary Care Provider [phone] Reason for Visit * Reason Onset Date Comments Appointment Related 10/27/2022 Encounter Details Date Type Department Care Team (Late st Contact Info) Description 10/27/2022 Telephone [facility] Endocrinology - [address] [address] Ray Brown MD Appointment Related Social History Tobacco Use [...] * Telephone Encounter - Miranda Macdonald - 11/20/2022 1004 EDT Left voicemail offering patient sooner appointment on 11-21-22 with Bone Endo Fellow. PASC, if patient accepts appointment please schedule. If patient cannot accept sooner appointment, or if it is no longer available in Epic please inform them we will continue to reach out as other openings become available * Telephone Encounter - Yelitza Banerjee - 10/27/2022 0816 EDT Left voicemail offering patient sooner in office appointment on 10/31/[address] Szymanski at 2 PM. Patient is on the wait list. PASC, if patient accepts appointment please schedule. If patient cannot accept sooner appointment, or if it is no longer available in Epic please inform them we will continue to reach out as other openings become available documented in this encounter Plan of Treatment Upcoming Encounters Date Type Department Care Team (Late st Contact Info) Description 04/07/2024 9:00 EST Office Visit [facility] Endocrinology - [facility] [address] [place], [place] [phone] Vincenzo Rawls MD [address] [facility] [address] [place] [phone] 08/22/2024 15:30 EDT Telemedicine [facility] Nephrology - [facility] [address] [place], [place] [phone] Jose L Whitley MD [facility], [address] [place] [address] documented as of this encounter Visit Diagnoses Not on filedocumented in this encounter Care Teams Rag Shredder Relationship Specialty Start Date End Date Lynn Saavedra MD [address] [place] [address] PCP - General 07/07/22 04/26/23 Chary Ordoñez [address] [place] [address] PCP - General Family Medicine - Primary Care 04/27/23 documented as of this encounter
--- OUTSIDE RECORDS SUMMARY | 2024-03-17 12:17 | XMS_ITS | Encounter Summary ---
Author Organization [facility] Address [address] [place] [address] Care Team Providers Care Photonic Laboratory Technician Name Role Phone SmitaJennifer Mariam OLVERA Primary Care Provider + Reason for Visit * (Routine/Next Available) - Receiving Office to Obtain Authorization Specialty Diagnoses / Procedures Referred By Savannah t Referred To Contact Procedures CT OUTSIDE IMAGES HEAD Unknown, Provider, MD Referral ID Status Reason Start Date Expiration Date Visits Requested Visits Authorized [id number] Receiving Office to Obtain Authorization 05/06/2022 1 1 Encounter Details Date Type Department Care Team (Latest Contact Info) Description 04/17/2022 Hospital Encounter [facility] Secondary Reads [place] Discharge Disposition: Home or [...] RUNNY NOSE OR ITCHY EARS 10/18/2021 3 traMADol (ULTRAM) 50 mg tablet Take 50 mg by mouth 2 times daily. 4 documented as of this encounter Discharge Disposition Disposition Code Departure Means Destination Home or Self Care documented in this encounter Plan of Treatment Upcoming Encounters Date Type Department Care Team (Late st Contact Info) Description 04/07/2024 9:00 EST Office Visit [facility] Endocrinology - [facility] [address] [place], [place] [phone] Vincenzo Rawls MD [address] [facility] [address] [place] [phone] 08/22/2024 15:30 EDT Telemedicine [facility] Nephrology - [address] [address] Jose L Whitley MD 1 [facility], [address] [place] [phone] documented as of this encounter Procedures Procedure Name Priority Date/Time Associated Diagnosis Comments CT OUTSIDE IMAGES HEAD Routine 04/17/2022 12:06 EST documented in this encounter Results * CT OUTSIDE IMAGES HEAD (04/17/2022 12:06 EST) Narrative 05/06/2022 12:06 EST This is a non-reportable exam. us Provider Unknown MD DRIVER OTHER IMAGING ORDERABLES Final Result documented in this encounter Visit Diagnoses Not on filedocumented in this encounter Care Teams Photonic Laboratory Technician Relationship Specialty Start Date End Date Jennifer Ordoñez, INFORMATION CODER [address] [facility] [place] [address] PCP - General 03/22/18 07/06/22 documented as of this encounter
--- OUTSIDE RECORDS SUMMARY | 2024-03-17 12:17 | XMS_ITS | Encounter Summary ---
Author Organization [facility] Address [address] [place] [address] Care Team Providers Care Field Artillery Radar Operator Name Role Phone Lynn Saavedra MD Primary Care Provider [phone] Encounter Details Date Type Department Care Team (Late st Contact Info) Description 01/08/2023 Abstract [facility] Nephrology - [address] [phone] Jose L Whitley MD 1 [facility], [address] [place] [address] Acute renal failure, unspecified acute [...] Info) Description 04/07/2024 9:00 EST Office Visit [facility] Endocrinology - [address] [phone] Vincenzo Rawls MD [address] [place] [address] [address] [place] [address] 08/22/2024 15:30 EDT Telemedicine [facility] Nephrology - [address] [phone] Jose L Whitley MD [address] [place] [address], [address] [place] [phone] documented as of this encounter Procedures Procedure Name Priority Date/Time Associated Diagnosis Comments COMPREHENSIVE METABOLIC PANEL (CMP) Routine 01/07/2023 9:42 EDT Acute renal failure, unspecified acute renal failure type (HCC-CMS) documented in this encounter Results * COMPREHENSIVE METABOLIC PANEL (CMP) (01/07/2023 9:42 EDT) GFR, Calculated, External 30 [facility] Glucose, Serum, External 66 mg/dL [facility] Albumin, External 3.4 g/dL [facility] Total Alkaline Phosphatase, External [address] [facility] ALT, External 29 [facility] AST, External 27 U/L [facility] BUN, External 37 mg/dL [facility] Calculated Calcium, External [facility] Calcium, External 9.5 mg/dL [facility] Chloride, External 104 mmol/L [facility] CO2, External 30 mmol/L [facility] Creatinine, External 1.71 mg/dL [facility] Fasting?, External [facility] Potassium, External 4.6 mmol/L [facility] Sodium, External 141 mmol/L [facility] Total Protein, External 7.9 [facility] Bilirubin, Total, External 0.3 [facility] Blood VENOUS BLOOD / Unknown 01/07/2023 9:42 EDT us Jose L Whitley MD CHEMISTRY & BLOOD GAS ORDERA BLES Final Result [facility] documented in this encounter Visit Diagnoses Diagnosis Acute renal failure, unspecified acute renal failure type (HCC-CMS)- Primary documented in this encounter Care Teams Field Artillery Radar Operator Relationship Specialty Start Date End Date Lynn Saavedra MD [address] [place] [phone] PCP - General 07/07/22 04/26/23 documented as of this encounter
--- OUTSIDE RECORDS SUMMARY | 2024-03-17 12:17 | XMS_ITS | Encounter Summary ---
Author Organization [facility] Address [address] [place] [address] Care Team Providers Care Sales Service Coordinator Name Role Phone Jennifer Ordoñez APRN Primary Care Provider + Lynn Saavedra MD Primary Care Provider [phone] Chary Ordoñez Primary Care Provider [phone] Encounter Details Date Type Department Care Team (Late st Contact Info) Description 03/27/2022 Lab Requisition [facility] Pathology & Laboratory Medicine - [address] [address] Outr Resulting Lab, Provider Social History Tobacco [...] No 04/16/2018 12:00 Sa karlie Monqiue RN * Are you blind or do [...] Info) Description 04/07/2024 9:00 EST Office Visit [facility] Endocrinology - [facility] [address] [place], [place] [phone] Vincenzo Rawls MD [address] [place] [address] [address] [place] [address] 08/22/2024 15:30 EDT Telemedicine [facility] Nephrology - [address] [address] Jose L Whitley MD [address] [place], [place] [address], [address] [place] [phone] documented as of this encounter Procedures Procedure Name Priority Date/Time Associated Diagnosis Comments HEPATITIS C AB W REFLEX TO HCV RNA BY PCR Routine 03/27/2022 10:15 EST HEPATITIS B CORE ANTIBODY (TOTAL) Routine 03/27/2022 10:15 EST HEPATITIS B SURFACE ANTIBODY Routine 03/27/2022 10:15 EST HEPATITIS B SURFACE ANTIGEN Routine 03/27/2022 10:15 EST documented in this encounter Results * HEPATITIS B SURFACE ANTIBODY (03/27/2022 10:15 EST) Hep B Surface Ab, Quantitative <3.1 See Note mIU/mL 03/28/2022 9:13 EST [facility] Comment: Reference Range for Hep B Surface Ab, Quant: Positive: >= 10.0 mIU/mL Negative: ??< 10.0 mIU/mL Patient is presumed to not be immune to infection with Hepatitis B Virus. Hep B Surface Ab, Qualitative Negative See Note 03/28/2022 9:13 EST [facility] Comment: Reference Range for Hep B Surface Ab, Qual: Unvaccinated: ??Negative Vaccinated: ??Positive Blood VENOUS BLOOD / Unknown 03/27/2022 10:15 EST 03/27/2022 21:42 EST us Provider Outr Resulting Lab CHEMISTRY & BLOOD GA S ORDERABLES Final Result Performing Organization Address [facility] Co de Phone Number [facility] [address] [place] [phone] * HEPATITIS B CORE ANTIBODY (TOTAL) (03/27/2022 10:15 EST) Hepatitis B Core Ab, Total Negative Negative 03/28/2022 9:57 EST [facility] Blood VENOUS BLOOD / Unknown 03/27/2022 10:15 EST 03/27/2022 21:42 EST us Provider Outr Resulting Lab CHEMISTRY & BLOOD GA S ORDERABLES Final Result Performing Organization Address [facility] Co de Phone Number [facility] [address] [place] [address] * HEPATITIS B SURFACE ANTIGEN (03/27/2022 10:15 EST) Hep B Surface Ag Negative Negative 03/28/2022 9:23 EST [facility] Blood VENOUS BLOOD / Unknown 03/27/2022 10:15 EST 03/27/2022 21:43 EST us Provider Outr Resulting Lab CHEMISTRY & BLOOD GA S ORDERABLES Final Result Performing Organization Address City/[facility]/ZIP Co de Phone Number [facility] [address] [place] [address] * HEPATITIS C AB W REFLEX TO HCV RNA BY PCR (03/27/2022 10:15 EST) Hep C Antibody Negative Negative 03/28/2022 9:54 EST [facility] Blood VENOUS BLOOD / Unknown 03/27/2022 10:15 EST 03/27/2022 21:43 EST us Provider Outr Resulting Lab CHEMISTRY & BLOOD GA S ORDERABLES Final Result Performing Organization Address City/[facility]/ZIP Co de Phone Number [facility] [address] [place] [address] documented in this encounter Visit Diagnoses Not on filedocumented in this encounter Care Teams Sales Service Coordinator Relationship Specialty Start Date End Date Jennifer Ordoñez APRN [address] [place] [address] PCP - General 03/22/18 07/06/22 Lynn Saavedra MD [address] [place] [address] PCP - General 07/07/22 04/26/23 Chary Ordoñez [address] [place] [address] PCP - General Family Medicine - Primary Care 04/27/23 documented as of this encounter
--- OUTSIDE RECORDS SUMMARY | 2024-03-17 12:17 | XMS_ITS | Encounter Summary ---
Author Organization [facility] Address [address] [place] [address] Care Team Providers Care Special Procedure Tech Name Role Phone Lynn Saavedra MD Primary Care Provider [phone] Reason for Referral * Laboratory Services (Routine/Next Available) - New Request Specialty Diagnoses / Procedures [facility] Referred To Contact Diagnoses Acute renal failure, unspecified acute renal failure type (HCC-CMS) Procedures COMPREHENSIVE METABOLIC PANEL (CMP) Jose L Whitley MD Phone: tel: fax: Referral ID Status Reason Start Date Expiration Date V isits Requested Visits Authorized [id number] New Request 07/07/2022 6 6 Reason for Visit * Reason Comments Acute Renal Failure 6 months' follow up on a 66-yo female with a history of ERNESTINA on CKD in a??then??64-yo female with PMH??for??CKD, Crohn's Disease, metabolic acidosis, nephrocalcinosis and RTA with hypomagnesemia - missed appointment on 04/14/2022. Last seen in September 2021. Creatinine was 1.37 mg/dL in October 2019, was as high as 2.07 mg/dL on 06/20/20, and??had??decreased to 1.82 mg/dL (eGFR=29) on 07/16/2020 and creatinine was down to 1.4 on 09/14/20. Episodes of ERNESTINA noted. Latest creatinine from 09/30/21 was 1.70 mg/dL. Encounter Details Date Type Department Care Team (Late st Contact Info) Description 07/07/2022 11:40 EDT Office Visit [facility] Nephrology - [address] [id number] Jose L Whitley MD [address] [place] [address] Rehab, Level 2 [place] [address] Acute renal failure, unspecified acute renal failure type ([facility]) (Primary Dx) Social History Tobacco Use Types Packs/Day Years Used Date Smoking Tobacco: Every Day Cigarettes 0.3 47.4 Started: 10/10/1976 Smokeless Tobacco: Never Tobacco Cessation:Ready to Q uit: Not Asked; Counseling Given: Not Answered Alcohol Use Standard Drinks/Week Comments No 0 [...] Sign Reading Time Taken Comments Blood Pressure 132/84 07/07/2022 1208 EDT Pulse 87 07/07/2022 1125 EDT Temperature - - Respiratory Rate - - Oxygen Saturation 100% 07/07/2022 1125 EDT Inhaled Oxygen Concentration - - Weight 37.6 kg (82 lb 14.4 oz) 07/07/2022 1125 E DT Height 149.9 cm (4' 11) 07/07/2022 1125 EDT Body Mass Index 16.74 07/07/2022 1125 EDT documented in this encounter Functional Status [...] Patient Instructions* Jose L Whitley MD - 07/07/2022 11:40 EDT To get CMP done LEVAR, possibly today in the lab here at [facility] and then in a lab nearer home every 2 months thereafter. RTC in 6 months. documented in this encounter Progress Notes * Jose L Whitley MD - 07/07/2022 1140 EDT This visit was conducted by telephone with consent given by the patients. During the visit, the patient's symptoms, weight, BP, medication usage and recent laboratory test results were reviewed. The telephone call lasted 26 minutes. Home Phone Work Phone NEPHROLOGY OFFICE FOLLOW UP VISIT NOTE SUBJECTIVE 6 months' follow up on a 66-yo female with a history of ERNESTINA on CKD in a??then??64-yo female with PMH??for??CKD, Crohn's Disease, metabolic acidosis, nephrocalcinosis and RTA with hypomagnesemia - missed appointment on 04/14/2022. Last seen in September 2021. Creatinine was 1.37 mg/dL in October 2019, was as high as 2.07 mg/dL on 06/20/20, and??had??decreased to 1.82 mg/dL (eGFR=29) on 07/16/2020 and creatinine was down to 1.4 on 09/14/20. Episodes of ERNESTINA noted and the EMR data show that the recurring episodes of ERNESTINA were related to dehydration from diarrhea caused by the Crohn's Disease. The latest creatinine from 03/05/22 was 1.90 mg/dL (eGFR=29); from 09/30/21, it was 1.70 mg/dL. 07/06/2022 Chief Complaint Patient presents with ??? Acute Renal Failure 6 months' follow up on a 66-yo female with a history of ERNESITNA on CKD in a??then??64-yo female with PMH??for??CKD, Crohn's Disease, metabolic acidosis, nephrocalcinosis and RTA with hypomagnesemia - missed appointment on 04/14/2022. Last seen in September 2021. Creatinine was 1.37 mg/dL in October 2019, was as high as 2.07 mg/dL on 06/20/20, and??had??decreased to 1.82 mg/dL (eGFR=29) on 07/16/2020 and creatinine was down to 1.4 on 09/14/20. Episodes of ERNESTINA noted. Latest creatinine from 09/30/21 was 1.70 mg/dL. HPI As above. She described having lots of back pain, particularly over the right kidney. This was discussed with her and it appears likely musculoskeletal. She got treated for UTI in the past. No urinary problems at this time. Leg swelling - None. She has a new provider. Lynn Saavedra MD ([place], [place]) is the new provider and not Jennifer Rhodes. The patient reported completing some tests about 2 months ago and we will manny these results. Breathing - Not too bad but gets winded with exertion. She was told that her liver numbers were elevated recently. She lost 10 lbs in the past few months. She has had malnutrition problems and has had a gastric feeding tube for up to 4 years. She has gained back a few pounds back and she does not understand why she is now gaining some of the lost weight back. Patient Active Problem List Diagnosis ??? Chronic kidney disease, stage III (moderate) (HCC) (HCC-CMS) ??? Tachycardia ??? Hematuria ??? Diarrhea with dehydration ??? Nephrocalcinosis ??? Renal tubular acidosis ??? Nephrolithiasis ??? Crohn's disease (HCC-CMS) (HCC) (HCC-CMS) ??? Fibromyalgia ??? Disruption of perineal wound Past Medical History: Diagnosis Date ??? Anemia [...] anus ??? [place] [facility] ??? Seizures (HCC-CMS) (HCC) (HCC-CMS) just one from chantex ??? Tachycardia [...] D3 (VITAMIN D-3 ORAL) ??? cyanocobalamin (VITAMIN B-12) 1,000 mcg/mL injection ??? cyclobenzaprine (FLEXERIL) 5 mg tablet ??? DULoxetine (CYMBALTA) 60 mg capsule ??? ergocalciferol (DRISDOL; VITAMIN D2) 50,000 unit capsule ??? ESTRADIOL ORAL ??? FOLIC ACID ORAL ??? loperamide (IMODIUM) 2 mg capsule ??? loratadine (CLARITIN) 10 mg tablet ??? Magnesium Oxide 500 mg capsule ??? metoprolol SUCCinate (TOPROL-XL) 25 mg tablet ??? ONDANSETRON HCL ORAL ??? potassium chloride (MICRO-K) 10 mEq capsule ??? sodium bicarbonate 650 mg tablet ??? traMADol (ULTRAM) 50 mg tablet No current facility-administered medications for this visit. Allergies Allergen Reactions ??? Chantix [Varenicline] SEIZURES Social History Tobacco Use ??? Smoking status: Every Day Packs/day: 0.25 Years: 45.00 Pack years: 11.25 Types: Cigarettes Start date: 10/10/1976 ??? Smokeless tobacco: Never Substance Use Topics ??? Alcohol use: No Comment: rarely ??? Drug use: Yes Frequency: 14.0 times per week Types: Marijuana Comment: twice daily, smokes Family History Problem Relation Age of Onset ??? *Other(comment) Mother ??? Pancreatic Cancer Mother ??? Stomach Cancer Neg Hx ??? Rectal Cancer Neg Hx ??? Esophageal Cancer Neg Hx ??? Colon Cancer Neg Hx REVIEW OF SYSTEMS A ten point ROS was performed and was negative except for pertinent positives in the HPI There were no vitals taken for this visit. General appearance: alert, cooperative, no distress Head: Normocephalic, without obvious abnormality, atraumatic Lungs: clear to auscultation bilaterally Heart: no rub Abdomen: Not distended. Mental Status: awake and alert; oriented to person, place, and time Extremities: No edema. Jose L Whitley MD 07/06/2022 19:14 Lab Results Component Value Date K 4.1 09/30/2021 K 4.7 12/13/2018 NA 141 09/30/2021 NA 139 12/13/2018 CL 105 09/30/2021 CL 105 12/13/2018 CO2 29 09/30/2021 CO2 23 12/13/2018 TBIL <0.5 11/24/2007 AST 37 11/24/2007 ALT [...] LABSPEC, BLOODU, PHUR, PROTEINUA, UROBILINOGEN, NITRITE, LEUKESTER Blood pressure - the MA had recorded 144/90 mm Hg. ASSESSMENT & PLAN 6 months' follow up on a 66-yo female with a history of ERNESTINA on CKD in a??then??64-yo female with PMH??for??CKD, Crohn's Disease, metabolic acidosis, nephrocalcinosis and RTA with hypomagnesemia - missed appointment on 04/14/2022. Last seen in September 2021. Creatinine was 1.37 mg/dL in October 2019, was as high as 2.07 mg/dL on 06/20/20, and??had??decreased to 1.82 mg/dL (eGFR=29) on 07/16/2020 and creatinine was down to 1.4 on 09/14/20. Episodes of ERNESTINA noted and the EMR data show that the recurring episodes of ERNESTINA were related to dehydration from diarrhea caused by the Crohn's Disease. The latest creatinine from 03/05/22 was 1.90 mg/dL (eGFR=29); from 09/30/21, it was 1.70 mg/dL. To get lab data from the PCP from 2022 and then to follow CMP LEVAR and then every 2 months and RTC in 6 months, if stable. Blood pressure - This was rechecked manually with a small cuff, left UE, siting - 132/84, 134/82 mmhg. Weight - The weight swings is likely related to malabsorption, and to ostomy output and Lomotil canmoderate the output. Back pain - This had been reviewed and explained to the patient to be likely musculoskeletal. To avoid NSAIDs. She may try some pain patches including 5% Lidocaine if prescribed by the PCP. ?? Metabolic acidosis - On Na bicarbonate high dose - on 2600 mg TID! Bicarbonate was 29 in September 2021;was 30.6 in September 2020. ?? S/p Ileostomy - She will follow up with GI as needed.. documented in this encounter Plan of Treatment Upcoming Encounters Date Type Department Care Team (Late st Contact Info) Description 04/07/2024 9:00 EST Office Visit [facility] Endocrinology - [address] [address] Vincenzo Rawls MD [address] [place] [address] [address] [place] [address] 08/22/2024 15:30 EDT Telemedicine [facility] Nephrology - [address] [place] [address] Jose L Whit[facility] MD [facility] [address] [place] [address] documented as of this encounter Results * COMPREHENSIVE METABOLIC PANEL (CMP) (06/03/2023 13:14 EDT) GFR, Calculated, External 32 [facility] Glucose, Serum, External 92 mg/dL [facility] Albumin, External 3.6 g/dL [facility] Total Alkaline Phosphatase, External 117 [facility] ALT, External 29 [facility] AST, External 21 U/L [facility] BUN, External 29 mg/dL [facility] Calculated Calcium, External [facility] Calcium, External 8.9 mg/dL [facility] Chloride, External 103 mmol/L [facility] CO2, External 32 mmol/L [facility] Creatinine, External 1.59 mg/dL [facility] Fasting?, External [facility] Potassium, External 4.0 mmol/L [facility] Sodium, External 141 mmol/L [facility] Total Protein, External 7.1 [facility] Bilirubin, Total, External 0.3 [facility] Blood VENOUS BLOOD / Unknown 06/03/2023 13:14 EDT us Jose L Whitley MD CHEMISTRY & BLOOD GAS ORDERA BLES Final Result [facility] * COMPREHENSIVE METABOLIC PANEL (CMP) (05/20/2023 10:37 EST) GFR, Calculated, External 26 [facility] Glucose, Serum, External 84 mg/dL [facility] Albumin, External 3.5 g/dL [facility] Total Alkaline Phosphatase, External 130 [facility] ALT, External 41 [facility] AST, External 40 U/L [facility] BUN, External 46 mg/dL [facility] Calculated Calcium, External [facility] Calcium, External 8.4 mg/dL [facility] Chloride, External 99 mmol/L [facility] CO2, External 33 mmol/L [facility] Creatinine, External 1.96 mg/dL [facility] Fasting?, External [facility] Potassium, External 4.5 mmol/L [facility] Sodium, External 138 mmol/L [facility] Total Protein, External 7.4 [facility] Bilirubin, Total, External 0.3 [facility] Blood VENOUS BLOOD / Unknown 05/20/2023 10:37 EST Jose L Whitley MD CHEMISTRY & BLOOD GAS ORDERA BLES Final Result Performing Organization Address [facility] Co de Phone Number [facility] * COMPREHENSIVE METABOLIC PANEL (CMP) (03/31/2023 8:59 EST) GFR, Calculated, External 31 [facility] Glucose, Serum, External 155 mg/dL [facility] Albumin, External 3.1 g/dL [facility] Total Alkaline Phosphatase, External 200 [facility] ALT, External 33 [facility] AST, External 26 U/L [facility] BUN, External 29 mg/dL [facility] Calculated Calcium, External [facility] Calcium, External 9.1 mg/dL [facility] Chloride, External 102 mmol/L [facility] CO2, External 27 mmol/L [facility] Creatinine, External 1.64 mg/dL [facility] Fasting?, External [facility] Potassium, External 4.5 mmol/L [facility] Sodium, External 135 mmol/L [facility] Total Protein, External 7.5 [facility] Bilirubin, Total, External 0.3 [facility] Blood VENOUS BLOOD / Unknown 03/31/2023 8:59 EST Jose L Whitley MD CHEMISTRY & BLOOD GAS ORDERA BLES Final Result Performing Organization Address City/[facility]/ZIP Co de Phone Number [facility] * COMPREHENSIVE METABOLIC PANEL (CMP) (01/07/2023 9:42 EDT) GFR, Calculated, External 30 [facility] Glucose, Serum, External 66 mg/dL [facility] Albumin, External 3.4 g/dL [facility] Total Alkaline Phosphatase, External 128 [facility] ALT, External 29 [facility] AST, External 27 U/L [facility] BUN, External 37 mg/dL [facility] Calculated Calcium, External [facility] Calcium, External 9.5 mg/dL [facility] Chloride, External 104 mmol/L [facility] CO2, External 30 mmol/L [facility] Creatinine, External 1.71 mg/dL [facility] Fasting?, External [facility] Potassium, External 4.6 mmol/L [facility] Sodium, External 141 mmol/L [facility] Total Protein, External 7.9 [facility] Bilirubin, Total, External 0.3 [facility] Blood VENOUS BLOOD / Unknown 01/07/2023 9:42 EDT us Jose L Whitley MD CHEMISTRY & BLOOD GAS ORDERA BLES Final Result [facility] * COMPREHENSIVE METABOLIC PANEL (CMP) (10/02/2022 10:16 EDT) GFR, Calculated, External 30 [facility] Glucose, Serum, External 85 mg/dL [facility] Albumin, External 3.5 g/dL [facility] Total Alkaline Phosphatase, External 148 [facility] ALT, External 31 [facility] AST, External 29 U/L [facility] BUN, External 25 mg/dL [facility] Calculated Calcium, External [facility] Calcium, External 9.4 mg/dL [facility] Chloride, External 98 mmol/L [facility] CO2, External 37 mmol/L [facility] Creatinine, External 1.70 mg/dL [facility] Fasting?, External [facility] Potassium, External 4.0 mmol/L [facility] Sodium, External 138 mmol/L [facility] Total Protein, External 7.8 [facility] Bilirubin, Total, External 0.3 [facility] Blood VENOUS BLOOD / Unknown 10/02/2022 10:16 EDT us Jose L Whitley MD CHEMISTRY & BLOOD GAS ORDERA BLES Final Result [facility] * COMPREHENSIVE METABOLIC PANEL (CMP) (07/08/2022 14:51 EDT) GFR, Calculated, External 29 [facility] Glucose, Serum, External 94 [facility] Albumin, External 3.5 [facility] Total Alkaline Phosphatase, External 144 [facility] ALT, External 40 [facility] AST, External 31 [facility] BUN, External 33 [facility] Calculated Calcium, External [facility] Calcium, External 9.0 [facility] Chloride, External 105 [facility] CO2, External 29 [facility] Creatinine, External 1.78 [facility] Fasting?, External [facility] Potassium, External 4.1 [facility] Sodium, External 142 [facility] Total Protein, External 7.3 [facility] Bilirubin, Total, External 0.2 [facility] Blood VENOUS BLOOD / Unknown 07/08/2022 14:51 EDT Jose L Whitley MD CHEMISTRY & BLOOD GAS ORDERA BLES Final Result [facility] documented in this encounter Visit Diagnoses Diagnosis Acute renal failure, unspecified acute renal failure type (HCC-CMS)- Primary documented in this encounter Care Teams Special Procedure Tech Relationship Specialty Start Date End Date Lynn Saavedra MD [address] [place] [address] PCP - General 07/07/22 04/26/23 documented as of this encounter
--- OUTSIDE RECORDS SUMMARY | 2024-03-17 12:17 | XMS_ITS | Encounter Summary ---
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] Procedures CO SURG DIAGNOSTIC EXAM, ANORECTAL CO I&D RECTAL ABSCESS + FISTULECTOMY EXAM UNDER ANESTHESIA, ANORECTAL, possible abscess drainage, possible seton placement I+D,RECTAL ABSCESS, W/FIST/OTOMY,W/WO SETON Referral ID Status Reason Start Date Expiration Date Visits Re quested Visits Authorized [id number] 1 1 Encounter Details Date Type Department Care Team (Late st Contact Info) Description 11/19/2022 11:45 EDT - 11/19/2022 13:00 EDT Surgery [facility] Operating Room [address] [place] [address] Ryan Ruiz MD [address] [facility], [address] [place] [address] EXAM UNDER ANESTHESIA, ANORECTAL, possible abscess drainage, possible seton placement [83477 (CPT??)] Surgery Details Date/Time Status Location OR Service Patient Class Case Cl ass Case Type Trauma Case? 11/19/2022 1145 Posted [facility] 04 [facility] Outpatient Surgery H - Elective Panel 1 Procedure LRB Anes Op Region Wound Class Comments EXAM UNDER ANESTHESIA, ANORECTAL, possible abscess drainage, possible seton placement N/A Monitored Anesthesia Care Anus Class III/ Contaminated I+D,RECTAL ABSCESS, W/FIST/OTOMY,W/WO SETON N/A Monitored Anesthesia Care Anus Class IV/ Dirty or Infected Surgeon Surgeon Role Service Panel Ryan Ruiz MD Primary General 1 Jimmie Dickey MD Resident - Assisting General 1 Special Needs Lithotomy documented in this encounter Social History Tobacco [...] Sign Reading Time Taken Comments Blood Pressure 81/57 11/19/2022 1300 EDT Pulse - - Temperature 36.1 ??C (97 ??F) 11/19/2022 1252 EDT Respiratory Rate 16 11/19/2022 1102 EDT Oxygen Saturation 100% 11/19/2022 1300 EDT Inhaled Oxygen Concentration - - Weight [...] of Assessment Author No 04/16/2018 12:00 Sa kralie Monique RN * Do you have serious [...] Means Destination Comment s Home or Self [facility]sp documented in this encounter H&P Notes * [...] anus ??? Renal tubular acidosis dx at [facility], after bowel surgery ??? Seizures (HCC-CMS) just [...] Seton. SURGEON: Ryan Ruiz MD FACS FAS[employer]S TABLE COVER FOLDER: Jimmie Dickey MD; and Louise Trujillo MS3 [...] Ruiz MD FACS FASCRS / /JEANNETTE Confirmation: [id number] Dictation ID: [id number] cc: Lynn Saavedra MD, [place] [address] documented in this encounter Miscellaneous Notes * Brief Op Note - Jimmie Dickey MD - 11/19/2022 1257 EDT Date: 11/19/2022 Location: [facility] OR Name: Zaira Collins, : 1955, Diagnosis [...] Hand (Active) Wound 11/19/22 Rectum (Active) Staff: Senior Network Security Engineer: Karthik Skinner RN Relief Senior Network Security Engineer: Briseida Roper RN Scrub Person: Wisam Huang [...] Info) Description 04/07/2024 9:00 EST Office Visit [facility] Endocrinology - [address] [address] Vincenzo Rawls MD [address] [place] [address] [address] [place] [address] 08/22/2024 15:30 EDT Telemedicine [facility] Nephrology - [address] [address] Jose L Whitley MD [address] [place], [place] [address]ab, [address] [place] [phone] Scheduled Referrals Name Type Priority Associated Diagnoses [...] (postoperative nausea and vomiting) Nausea with vomiting Perineal fistula Urethral fistula documented in this encounter Admitting Diagnoses Diagnosis [...] 11/19/2022 11:28 EDT 25 mL/hr 25 mL/hr lidocaine 1 % 30 mL, BUPivacaine (PF) (MARCAINE) 0.5% 30 mL PRN, Starting on Thu11/19/22 at 1233, Until Thu11/19/22 at 1250, Routine, Intraprocedure Given 11/19/2022 12:49 EDT 14 mL metronidazole (FLAGYL) infusion 500 mg 500 mg, intravenous, Administer over 30 Minutes, PRE-OP ONCE, 1 dose, On Thu11/19/22 at 1100, Type of Therapy: Prophylaxis, Suspected Indication (Select all that apply): Colorectal surgery, Routine, Preprocedure Given 11/19/2022 12:05 EDT 500 mg sodium bicarbonate 4.2 % (0.5 mEq/ml) injection PRN, Starting on Thu11/19/22 at 1232, Until Thu11/19/22 at 1250, Routine, Intraprocedure Given 11/19/2022 12:32 EDT 5 mEq documented in this encounter Discontinued Medications Medication [...] (LR) infusion 1 11/19/2022 lidocaine 1 % injection 2 mg 1 11/19/2022 naloxone (NARCAN) injection 0.2 mg 1 2022 ondansetron (PF) (ZOFRAN) injection 4 mg 1 11/19/2022 Diet Count Last Ordered Date [...] 08/2022 documented in this encounter Care Teams Certified Travel Counselor Relationship Specialty Start Date End Date Lynn Saavedra MD [address] [place] [address] PCP - General 07/07/22 04/26/23 documented as of this encounter
--- OUTSIDE RECORDS SUMMARY | 2024-03-17 12:17 | XMS_ITS | Encounter Summary ---
Author Organization [facility] Address [address] [place] [address] Care Team Providers Care Sensitometrist Name Role Phone Lynn Saavedra MD Primary Care Provider [phone] Encounter Details Date Type Department Care Team (Late st Contact Info) Description 07/07/2022 Abstract [facility] Nephrology - [address] [id number] Jose L Whitley MD 1 [facility], Level 2 [place] [address] Social History Tobacco Use Types [...] Info) Description 04/07/2024 9:00 EST Office Visit [facility] Endocrinology - [address] [phone] Vincenzo Rawls MD [address] [place] [address] [address] [place] [address] 08/22/2024 15:30 EDT Telemedicine [facility] Nephrology - [address] [phone] Jose L Whitley MD 1 [facility], Level 2 [place] [address] documented as of this encounter Procedures Procedure Name Priority Date/Time Associated Diagnosis Comments VITAMIN D (25,OH) Routine 05/16/2022 URINE [id number] RATIO (ACR) Routine 05/16/2022 COMPLETE BLOOD COUNT Routine 05/16/2022 VITAMIN B12 Routine 05/16/2022 COMPREHENSIVE METABOLIC PANEL (CMP) Routine 05/16/2022 documented in this encounter Results * COMPREHENSIVE METABOLIC PANEL (CMP) (05/16/2022) GFR, Calculated, External 27.21 EXTERNAL LAB Glucose, Serum, External 77 EXTERNAL LAB Albumin, External 3.7 EXTERNAL LAB Total Alkaline Phosphatase, External 135 EXTERNAL LAB ALT, External 37 EXTERNAL LAB AST, External 41 EXTERNAL LAB BUN, External 34 EXTERNAL LAB Calculated Calcium, External EXTERNAL LAB Calcium, External 9.7 EXTERNAL LAB Chloride, External 106 EXTERNAL LAB CO2, External 26.1 EXTERNAL LAB Creatinine, External 2.0 EXTERNAL LAB Fasting?, External EXTERNAL LAB Potassium, External 4.1 EXTERNAL LAB Sodium, External 141 EXTERNAL LAB Total Protein, External 7.9 EXTERNAL LAB Bilirubin, Total, External 0.2 EXTERNAL LAB Blood VENOUS BLOOD / Unknown 05/16/2022 Result [facility] Historical Provider CHEMISTRY & BLOOD GAS ORD ERABLES Final Result EXTERNAL LAB * VITAMIN B12 (05/16/2022) Vitamin B-12, External 759 EXTERNAL LAB Blood VENOUS BLOOD / Unknown 05/16/2022 Historical Provider CHEMISTRY & BLOOD GAS ORD ERABLES Final Result EXTERNAL LAB * VITAMIN D (25,OH) (05/16/2022) 25OH Vitamin D Tot, External 32.1 EXTERNAL LAB Blood VENOUS BLOOD / Unknown 05/16/2022 Historical Provider CHEMISTRY & BLOOD GAS ORD ERABLES Final Result EXTERNAL LAB * URINE [id number]-[id number]-FUHDZOOYDH RATIO (ACR) (05/16/2022) Microalb ug/mg Crea, External 18.1 EXTERNAL LAB Microalb mg/dl, External 15.2 EXTERNAL LAB Creatinine, Random U (UCRR), External 84.03 EXTERNAL LAB Urine URINE / Unknown 05/16/2022 Historical Provider CHEMISTRY & BLOOD GAS ORD ERABLES Final Result Performing Organization Address [facility] de Phone Number EXTERNAL LAB * COMPLETE BLOOD COUNT (05/16/2022) HCT, External 41.2 EXTERNAL LAB MCH, External 32.8 EXTERNAL LAB MCV, External 101 EXTERNAL LAB MCHC, External 32.5 EXTERNAL LAB Hemoglobin, External 13.4 EXTERNAL LAB WBC, External 5.57 EXTERNAL LAB RBC, External 4.08 EXTERNAL LAB PLT, External 336 EXTERNAL LAB RDW-CV, External 13.4 EXTERNAL LAB Blood VENOUS BLOOD / Unknown 05/16/2022 Historical Provider HEMATOLOGY & PF4 ORDERABL ES Final Result Performing Organization Address [facility] de Phone Number EXTERNAL LAB documented in this encounter Visit Diagnoses Not on filedocumented in this encounter Care Teams Sensitometrist Relationship Specialty Start Date End Date Lynn Saavedra MD [address] [place] [phone] PCP - General 07/07/22 04/26/23 documented as of this encounter
--- OUTSIDE RECORDS SUMMARY | 2024-03-17 12:17 | XMS_ITS | Encounter Summary ---
Author Organization [facility] Address [address] [place] [address] Care Team Providers Care Automotive Glazier Name Role Phone Lynn Saavedra MD Primary Care Provider [phone] Reason for Visit * Reason Onset Date Comments Other 11/20/2022 Encounter Details Date Type Department Care Team (Late st Contact Info) Description 11/20/2022 Telephone [facility] General Surgery - [address] [address] Ryan Ruiz MD [address] [place] [address], Level 5 [place] [address] Other Social History Tobacco Use [...] karlie Monique RN documented in this encounter Ordered Prescriptions Prescription Sig Dispense Quantity Refills Last Filled Start Date End Date traMADol (ULTRAM) 50 mg tablet Take 1-2 Tablets by mouth every 6 hours as needed for Pain. Daily Max: 400 mg 30 Tablet 11/21/2022 4 documented in this encounter Miscellaneous Notes * Telephone Encounter - Li Carvajal RN - 11/21/2022 0833 EDT See message below, new script for tramadol has been called into the [facility] in [place]. Patient now aware. Due to drug interaction with both amitriptyline and Cyclobenzaprine she will not take these while she is taking the tramadol. ----- Message from Ryan Ruiz MD sent at 11/20/2022 17:24 EDT ----- Regarding: RE: 1 day post op pain control Tramadol 50-100mg q 6 disp 30 ----- Message ----- From: Li Carvajal RN Sent: 11/20/2022 15:06 EDT To: Ryan Ruiz MD Subject: 1 day post op pain control Patient is only 75 lbs weight and can only take 500 mg tylenol every 4 hours and can not take ibuprofen due to her crohn's and she has stage 3 kidney disease. Tylenol is not cutting it for pain control, she would like some pain medication as packing the wound is very uncomfortable and she only got 3 hours total sleep since she has been home. She uses the [facility] in [place]. Has used oxycodone and tramadol in the past. No narcotic allergies. Please advise Li * Telephone Encounter - Li Carvajal RN - 11/20/2022 1432 EDT Patient is s/p 11/19/22 POSTOPERATIVE DIAGNOSES:?? Anovaginal fistula, perianal abscess. ??PROCEDURE:?? Drainage of a periorbital abscess and placement of a draining Seton. ??SURGEON:?? Ryan Ruiz MD FACS FASCRS. Patient is aware I have sent Dr Ruiz a staff message requesting pain medication. * Telephone Encounter - Maude Tubbs - 11/20/2022 1400 EDT Cynthia had EUA, possible seton placement with Dr. Ruiz yesterday 11/19. She is having difficulty with the pain regimen and also with the packing. Can you please give her a call. documented in this encounter Plan of Treatment Upcoming Encounters Date Type Department Care Team (Late st Contact Info) Description 04/07/2024 9:00 EST Office Visit [facility] Endocrinology - [facility] [address] [place], [place] [phone] Vincenzo Rawls MD 62 [facility] [address] [place] [address] 08/22/2024 15:30 EDT Telemedicine [facility] Nephrology - [facility] [place] [address] [place], [place] [phone] Jose L Whitley MD 1 [facility], Level 2 [place] [phone] documented as of this encounter Visit Diagnoses Not on filedocumented in this encounter Care Teams Automotive Glazier Relationship Specialty Start Date End Date Lynn Saavedra MD [address] [place] [phone] PCP - General 07/07/22 04/26/23 documented as of this encounter
--- OUTSIDE RECORDS SUMMARY | 2024-03-17 12:17 | XMS_ITS | Encounter Summary ---
Author Organization [facility] Address [address] [place] [address] Care Team Providers Care Benchroom Shop Optician Name Role Phone Lynn Saavedra MD Primary Care Provider [phone] Reason for Visit * Reason Comments Follow-up Perineal fistula Encounter Details Date Type Department Care Team (Late st Contact Info) Description 10/31/2022 11:45 EDT Office Visit [facility] General Surgery - [address] [phone] Ryan Ruiz MD 111 [facility], Level 5 [place] [address] Perineal fistula (Primary Dx) Social History Tobacco Use [...] Sign Reading Time Taken Comments Blood Pressure 138/82 10/31/2022 1131 EDT Pulse 90 10/31/2022 1131 EDT Temperature - - Respiratory Rate - - Oxygen Saturation - - Inhaled Oxygen Concentration - - Weight 34.2 kg (75 lb 6.4 oz) 10/31/2022 1131 ED T Height 149.9 cm (4' 11.02) 10/31/2022 1131 EDT Body Mass Index 15.22 10/31/2022 1131 EDT documented in this encounter Functional Status [...] Progress Notes * Ryan Ruiz MD - 10/31/2022 1145 EDT Subjective: Patient ID: Zaira Collins is [...] ??? Renal tubular acid[place] [facility] bowel [place] ??? Seizures (HCC-CMS) just [...] 04/07/2024 9:00 EST Office Visit [facility] Endocrinology - [facility] [address] [place], [place] [phone] Vincenzo Rawls MD 62 [facility] [address] [place] [phone] 08/22/2024 15:30 EDT Telemedicine [facility] Nephrology - [facility] [address] [place], [place] [address] Jose L Whitley MD 1 [facility], Level 2 [place] [phone] documented as of this encounter Visit Diagnoses Diagnosis Perineal fistula- Primary Urethral fistula documented in this encounter Orders Case Request Count Last Ordered Date First Orde red Date CASE REQUEST OPERATING ROOM 1 10/31/2022 documented in this encounter Care Teams Benchroom Shop Optician Relationship Specialty Start Date End Date Lynn Saavedra MD [address] [place] [phone] PCP - General 07/07/22 04/26/23 documented as of this encounter
--- OUTSIDE RECORDS SUMMARY | 2024-03-17 12:17 | XMS_ITS | Encounter Summary ---
Author Organization [facility] Address [address] [place] [address] Care Team Providers Care Technical Consultant Name Role Phone Jennifer Ordoñez APRN Primary Care Provider + Lynn Saavedra MD Primary Care Provider [phone] Chary Ordoñez Primary Care Provider [phone] Encounter Details Date Type Department Care Team (Late st Contact Info) Description 06/21/2022 Lab Requisition [facility] Pathology & Laboratory Medicine - [address] [address] Outr Resulting Lab, Provider Social History Tobacco [...] Description 04/07/2024 9:00 EST Office Visit [facility] Endocrinology - [facility] [address] [place], [place] [phone] Vincenzo Rawls MD [address] [place] [address] [address] [place] [address] 08/22/2024 15:30 EDT Telemedicine [facility] Nephrology - [address] [phone] Jose L Whitley MD [address] [place] [address], Level 2 [place] [phone] documented as of this encounter Procedures Procedure Name Priority Date/Time Associated Diagnosis Comments HEPATITIS B SURFACE ANTIBODY Routine 06/20/2022 9:50 EDT documented in this encounter Results * HEPATITIS B SURFACE ANTIBODY (06/20/2022 9:50 EDT) Hep B Surface Ab, Quantitative 7.0 See Note mIU/mL 06/23/2022 9:08 EDT [facility] Comment: Reference Range for Hep B Surface Ab, Quant: Positive: >= 10.0 mIU/mL Negative: ??< 10.0 mIU/mL Patient is presumed to not be immune to infection with Hepatitis B Virus. Hep B Surface Ab, Qualitative Negative See Note 06/23/2022 9:08 EDT [facility] Comment: Reference Range for Hep B Surface Ab, Qual: Unvaccinated: ??Negative Vaccinated: ??Positive Blood VENOUS BLOOD / Unknown 06/20/2022 9:50 EDT 06/21/2022 21:35 EDT us Provider Outr Resulting Lab CHEMISTRY & BLOOD GA S ORDERABLES Final Result Performing Organization Address City/State/[facility] Co de Phone Number [facility] [address] [place] [address] documented in this encounter Visit Diagnoses Not on filedocumented in this encounter Care Teams Technical Consultant Relationship Specialty Start Date End Date Jennifer Ordoñez APRN 4 [facility] [place] [address] PCP - General 03/22/18 07/06/22 Lynn Saavedra MD [address] [place] [address] PCP - General 07/07/22 04/26/23 Chary Ordoñez [address] [place] [address] PCP - General Family Medicine - Primary Care 04/27/23 documented as of this encounter
--- OUTSIDE RECORDS SUMMARY | 2024-03-17 12:17 | XMS_ITS | Encounter Summary ---
Author Organization [facility] Address [address] [place] [address] Care Team Providers Care Swage Toolsetter Name Role Phone SmitaJennifer Mariam OLVERA Primary Care Provider + Reason for Visit * (Routine/Next Available) - Receiving Office to Obtain Authorization Specialty Diagnoses / Procedures Referred By Savannah t Referred To Contact Procedures US OUTSIDE IMAGES BODY Unknown, Provider, MD Referral ID Status Reason Start Date Expiration Date Visits Requested Visits Authorized [id number] Receiving Office to Obtain Authorization 05/06/2022 1 1 Encounter Details Date Type Department Care Team (Latest Contact Info) Description 04/17/2022 Hospital Encounter [facility] Secondary Read[place] Discharge Disposition: Home [...] of Assessment Author No 04/16/2018 12:00 Sa karlei Monique RN * Do you have difficulty [...] Office Visit [facility] Endocrinology - [facility] [address] [place] [address] Vincenzo Rawls MD [address] [facility] [address] [place] [phone] 08/22/2024 15:30 EDT Telemedicine [facility] Nephrology - [address] [address] Jose L Whitley MD 1 [facility], Level [address] [place] [phone] documented as of this encounter Procedures Procedure Name Priority Date/Time Associated Diagnosis Comments US OUTSIDE IMAGES BODY Routine 04/17/2022 12:06 EST documented in this encounter Results * US OUTSIDE IMAGES BODY (04/17/2022 12:06 EST) Narrative 05/06/2022 12:06 EST This is a non-reportable exam. us Provider Unknown MD DRIVER OTHER IMAGING ORDERABLES Final Result documented in this encounter Visit Diagnoses Not on filedocumented in this encounter Care Teams Swage Toolsetter Relationship Specialty Start Date End Date Jennifer Ordoñez, TWISTING MACHINE OPERATOR 4 [facility] [address] PCP - General 03/22/18 07/06/22 documented as of this encounter
--- OUTSIDE RECORDS SUMMARY | 2024-03-17 12:17 | XMS_ITS | Encounter Summary ---
Author Organization [facility] Address [address] [place] [address] Care Team Providers Care Pot Pusher Name Role Phone Lynn Saavedra MD Primary Care Provider [phone] Reason for Visit * Reason Comments Post-OP Follow Up Perineal fistula Encounter Details Date Type Department Care Team (Late st Contact Info) Description 01/09/2023 10:30 EDT Post-op Visit [facility] General Surgery - [address] [address] Ryan Ruiz MD [address] [place] [address], Level 5 [place] [address] Postop check (Primary Dx) Social History Tobacco Use Types Packs/Day Years Used Date Smoking Tobacco: Every Day Cigarettes 0.3 47.4 Started: 10/10/1976 Smokeless Tobacco: Never Tobacco Cessation:Ready to Q uit: Not Asked; Counseling Given: No Comments:5 cigarettes daily Alcohol Use Standard Drinks/Week [...] Sign Reading Time Taken Comments Blood Pressure 136/82 01/09/2023 1036 EDT Pulse 94 01/09/2023 1036 EDT Temperature - - Respiratory Rate - - Oxygen Saturation 98% 01/09/2023 1036 EDT Inhaled Oxygen Concentration - - Weight 34.7 kg (76 lb 9.6 oz) 01/09/2023 1036 ED T Height 149.9 cm (4' 11.02) 01/09/2023 1036 EDT Body Mass Index 15.46 01/09/2023 1036 EDT documented in this encounter Functional Status [...] Progress Notes * Ryan Ruiz MD - 01/09/2023 1030 EDT Cynthia is here for postoperative check. In the operating room I found a posterior abscess, essentially just never really healed her a neck to me. I also replaced a draining seton to the anal vaginal fistula. She is not able to pack the wound anymore. Not seeing much drainage on her pad. On exam the seton is in place. Only a 3 mm opening posteriorly which I cleaned out with a Q-tip andthen treated with silver nitrate. She wants to see me back in 4 to 6 weeks for 1 more check before we get to the winter when travel is much harder for her. documented in this encounter Plan of Treatment Upcoming Encounters Date Type Department Care Team (Late st Contact Info) Description 04/07/2024 9:00 EST Office Visit [facility] Endocrinology - [facility] [address] [place], [place] [phone] Vincenzo Rawls MD 62 [facility] [address] [place] [phone] 08/22/2024 15:30 EDT Telemedicine [facility] Nephrology - [facility] 1 [place], [place] [address] Jose L Whitley MD 1 [facility], Level 2 [place] [phone] documented as of this encounter Visit Diagnoses Diagnosis Postop check- Primary Follow-up examination, following unspecified surgery documented in this encounter Care Teams Pot Pusher Relationship Specialty Start Date End Date Lynn Saavedra MD [address] [place] [address] PCP - General 07/07/22 04/26/23 documented as of this encounter
--- OUTSIDE RECORDS SUMMARY | 2024-03-17 12:17 | XMS_ITS | Encounter Summary ---
Author Organization [facility] Address [address] [place] [address] Care Team Providers Care Road Boss Name Role Phone Lynn Saavedra MD Primary Care Provider [phone] Chary Ordoñez Primary Care Provider [phone] Reason for Visit * Reason Onset Date Comments Appointment Related 01/06/2023 Encounter Details Date Type Department Care Team (Late st Contact Info) Description 01/06/2023 Telephone [facility] Nephrology - [address] [address] Jose L Whitley MD [address] [place] [address], Level 2 [place] [address] Appointment Related Social History Tobacco [...] * Telephone Encounter - Fritz Acevedo - 01/07/2023 1019 EDT 2nd attempt to reschedule LMOM. * Telephone Encounter - Fritz Acevedo - 01/06/2023 1025 EDT LMOM looking to see if pt would like to reschedule her missed f/u appt with Dr. Whitley. documented in this encounter Plan of Treatment Upcoming Encounters Date Type Department Care Team (Late st Contact Info) Description 04/07/2024 9:00 EST Office Visit [facility] Endocrinology - [address] [phone] Vincenzo Rawls MD 62 [facility] [address] [place] [address] 08/22/2024 15:30 EDT Telemedicine [facility] Nephrology - [address] [place] [address] [place] [address] Jose L Whitley MD [address] [place], [place] [address], Level 2 [place] [phone] documented as of this encounter Visit Diagnoses Not on filedocumented in this encounter Care Teams Road Boss Relationship Specialty Start Date End Date Lynn Saavedra MD [address] [place] [phone] PCP - General 07/07/22 04/26/23 Chary Ordoñez [address] [place] [address] PCP - General Family Medicine - Primary Care 04/27/23 documented as of this encounter
--- OUTSIDE RECORDS SUMMARY | 2024-03-17 12:17 | XMS_ITS | Encounter Summary ---
Author Organization [facility] Address [address] [place] [address] Care Team Providers Care Golf Cart Repairer Name Role Phone Lynn Saavedra MD Primary Care Provider [phone] Encounter Details Date Type Department Care Team (Late st Contact Info) Description 07/29/2022 Documentation Visit [facility] Endoscopy [address] [place] [address] Brent Roa MD [facility] [address] [place] [address] Social History Tobacco Use Types Packs/Day Years [...] of Assessment Author No 04/16/2018 12:00 Sa akrlie Monique RN * Do you have serious [...] in this encounter Progress Notes * Brent Roa MD - 07/29/2022 1330 EDT GI CONSULT FOLLOW UP NOTE Author: Brent Roa MD PCP: Lynn Saavedra Subjective: This is a follow-up visit for Ms. Collins who has a past history of Crohn's disease status post total colectomy and ileostomy, with a history of chronic abdominal pain of uncertain etiology. She was last seen here in October 2021 at which time she was advised to increase the dosage of amitriptyline to 20 mg at bedtime. She reports that about a month or so after that she saw her PCP who recommendedincreasing it further to 30 mg. She is now taking 10 mg 3 times a day. She continues to experience episodes of abdominal pain in the epigastric area which sometimes are severe and may last for about an hour. Sometimes she has nausea but no vomiting. In addition she may have radiation of the pain into the low back. She reports weight loss of about 10 pounds over the last couple months. Our recorded weight from October 2021 was 98 pounds. Her weight today is recorded at 82 pounds. She says she is able to eat and that eating does not seem to make her pain worse. She says she cannot drink certain supplements that are milky in consistency because it reminds her of contrast material from when she h ad CAT scans and other imaging studies. She also was given some kind of powdered supplement to mix with water which she took twice daily and did not seem to improve her weight. She also notes that atone time she did have a feeding tube placed when she was in the hospital. With respect to her bowelhabits, she is having loose stools although they are not watery. There is no visible blood in the stools. She did undergo upper endoscopy in October 2021 to look for other causes for epigastric pain. She had some mild gastritis and a biopsy was negative for H. pylori. Past Medical History: Diagnosis Date ??? Anemia [...] anus ??? 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 Seizures (HCC-CMS) just one from chantex ??? Tachycardia rx with b-charu, asymptomatic Past Surgical History: Procedure Laterality Date ??? COLON SURGERY ??? HYSTERECTOMY ??? ILEOSTOMY OR JEJUNOSTOMY 1983 ??? RECTAL SURGERY anus removal 03/2018, debridement 10/2018 ??? SMALL INTESTINE SURGERY ??? TOTAL COLECTOMY Current Outpatient Medications on File Prior to Visit Medication Sig Dispense Refill ??? acetaminophen (TYLENOL) 325 mg tablet Take 3 Tabs by mouth every 6 hours. Please alternate taking with ibuprofen so you are taking one or the other every three hours. (Patient not taking: No sig reported) 1 Tab 0 ??? amitriptyline (ELAVIL) 10 mg tablet Take 2 Tablets by mouth at bedtime. (Patient taking differently: Take 30 mg by mouth at bedtime.) 60 Tablet 5 ??? calcium carbonate/vitamin D3 (VITAMIN D-3 ORAL) Take by mouth. ??? cyanocobalamin (VITAMIN B12) 1,000 mcg/mL injection Inject 1,000 mcg into the muscle every 28 days. ??? [...] metoprolol SUCCinate (TOPROL-XL) 25 mg tablet Take 12.5 mg by mouth daily. ??? ONDANSETRON HCL ORAL Take 4 mg by mouth 3 times daily. ??? potassium chloride (MICRO-K) 10 mEq capsule Take 20 mEq by mouth daily. ??? sodium bicarbonate 650 mg tablet Take 2,600 mg by mouth 3 times daily. ??? traMADol (ULTRAM) 50 mg tablet Take 50 mg by mouth 2 times daily. No current facility-administered medications on file prior to visit. Objective: Weight today is 83 pounds, BP 90/51, pulse 91. Gen: NAD. AAOx3, physical exam was not performed today. Labs/Imaging/Procedures: Data reviewed. Pertinent results as follows: None available. ASSESSMENT: Zaira Collins is a 66 y.o. female with a past history of Crohn's disease status post proctocolectomy and ileostomy, no evidence of active Crohn's as of her most recent evaluation. Recent EGD was unremarkable aside from mild gastritis and no evidence of H. pylori. I suspect that her abdominal pain is mostly functional. I recommended that she further increase the amitriptyline to 40 mg. This canbe further increased to a maximum of 50 mg if needed. I am concerned about her weight loss. At thispoint because she is able to eat and drink, I do not think a feeding tube would be the right approach. Instead I think it would be more useful to see whether there are some calorie rich nutritional supplements that she could tolerate. I suggested she contact her PCP office so that a consultation with a dietitian could be arranged. We also discussed management of loose stools and she was advised that she could further increase the dose of the loperamide. PLAN: 1. Increase amitriptyline to 40 mg at bedtime. 2. Consider increasing further to 50 mg at bedtime if needed. 3. Consultation with dietitian to discuss high-calorie supplements that are more palatable to her. 4. Follow-up as needed. Brent Roa MD 07/29/2022: documented in this encounter Plan of Treatment Upcoming Encounters Date Type Department Care Team (Late st Contact Info) Description 04/07/2024 9:00 EST Office Visit [facility] Endocrinology - [address] [address] Vincenzo Rawls MD [address] [place] [address] [address] [place] [address] 08/22/2024 15:30 EDT Telemedicine [facility] Nephrology - [address] [id number] Jose L Whitley MD [address] [place] [address], [address] [place] [phone] documented as of this encounter Visit Diagnoses Not on filedocumented in this encounter Care Teams Golf Cart Repairer Relationship Specialty Start Date End Date Lynn Saavedra MD [address] [place] [phone] PCP - General 07/07/22 04/26/23 documented as of this encounter
--- OUTSIDE RECORDS SUMMARY | 2024-03-17 12:17 | XMS_ITS | Encounter Summary ---
Author Organization [facility] Address [address] [place] [address] Care Team Providers Care Edge Grinder Name Role Phone Lynn Saavedra MD Primary Care Provider [phone] Encounter Details Date Type Department Care Team (Late st Contact Info) Description 10/03/2022 Abstract [facility] Nephrology - [address] [id number] Jose L Whitley MD 1 [facility], [address] [place] [address] Acute renal failure, unspecified acute [...] Info) Description 04/07/2024 9:00 EST Office Visit [facility] Endocrinology - [address] [address] Vincenzo Rawls MD [address] [place] [address] [address] [place] [address] 08/22/2024 15:30 EDT Telemedicine [facility] Nephrology - [address] [id number] Jose L Whitley MD [address] [place] [address], [address] [place] [phone] documented as of this encounter Procedures Procedure Name Priority Date/Time Associated Diagnosis Comments COMPREHENSIVE METABOLIC PANEL (CMP) Routine 10/02/2022 10:16 EDT Acute renal failure, unspecified acute renal failure type (HCC-CMS) documented in this encounter Results * COMPREHENSIVE METABOLIC PANEL (CMP) (10/02/2022 10:16 EDT) GFR, Calculated, External 30 [facility] Glucose, Serum, External 85 mg/dL [facility] Albumin, External 3.5 g/dL [facility] Total Alkaline Phosphatase, External 148 [facility] ALT, External 31 [facility] AST, External 29 U/L [facility] BUN, External 25 mg/dL [facility] Calculated Calcium, External [facility] Calcium, External 9.4 mg/dL [facility] Chloride, External 98 mmol/L [facility] CO2, External 37 mmol/L [facility] Creatinine, External 1.70 mg/dL [facility] Fasting?, External [facility] Potassium, External 4.0 mmol/L [facility] Sodium, External 138 mmol/L [facility] Total Protein, External 7.8 [facility] Bilirubin, Total, External 0.3 [facility] Blood VENOUS BLOOD / Unknown 10/02/2022 10:16 EDT us Jose L Whitley MD CHEMISTRY & BLOOD GAS ORDERA BLES Final Result [facility] documented in this encounter Visit Diagnoses Diagnosis Acute renal failure, unspecified acute renal failure type (HCC-CMS)- Primary documented in this encounter Care Teams Edge Grinder Relationship Specialty Start Date End Date Lynn Saavedra MD [address] [place] [phone] PCP - General 07/07/22 04/26/23 documented as of this encounter
--- OUTSIDE RECORDS SUMMARY | 2024-03-17 12:17 | XMS_ITS | Encounter Summary ---
Author Organization [facility] Address [address] [place] [address] Care Team Providers Care Switch Adjuster Name Role Phone Lynn Saavedra MD Primary Care Provider [phone] Encounter Details Date Type Department Care Team (Late st Contact Info) Description 12/08/2022 Abstract [facility] Nephrology - [address] [id number] Jose L Whitley MD [address] [facility], [address] [place] [address] Social History Tobacco Use Types [...] Info) Description 04/07/2024 9:00 EST Office Visit [facility] Endocrinology - [address] [address] Vincenzo Rawls MD [address] [place] [address] [address] [place] [address] 08/22/2024 15:30 EDT Telemedicine [facility] Nephrology - [address] [address] Jose L Whitley MD 1 [facility], [address] [place] [phone] documented as of this encounter Procedures Procedure Name Priority Date/Time Associated Diagnosis Comments COMPREHENSIVE METABOLIC PANEL (CMP) Routine 12/05/2022 12:09 EDT documented in this encounter Results * COMPREHENSIVE METABOLIC PANEL (CMP) (12/05/2022 12:09 EDT) GFR, Calculated, External 30 [facility] Glucose, Serum, External 99 mg/dL [facility] Albumin, External 3.5 g/dL [facility] Total Alkaline Phosphatase, External 120 [facility] ALT, External 21 [facility] AST, External 26 U/L [facility] BUN, External 30 mg/dL [facility] Calculated Calcium, External [facility] Calcium, External 9.2 mg/dL [facility] Chloride, External 101 mmol/L [facility] CO2, External 32 mmol/L [facility] Creatinine, External 1.71 mg/dL [facility] Fasting?, External [facility] Potassium, External 3.6 mmol/L [facility] Sodium, External 140 mmol/L [facility] Total Protein, External 7.5 [facility] Bilirubin, Total, External 0.2 [facility] Blood VENOUS BLOOD / Unknown 12/05/2022 12:09 EDT us Historical Provider CHEMISTRY & BLOOD GAS ORD ERABLES Final Result [facility] documented in this encounter Visit Diagnoses Not on filedocumented in this encounter Care Teams Switch Adjuster Relationship Specialty Start Date End Date Lynn Saavedra MD [address] [place] [phone] PCP - General 07/07/22 04/26/23 documented as of this encounter
--- OUTSIDE RECORDS SUMMARY | 2024-03-17 12:17 | XMS_ITS | Encounter Summary ---
Author Organization [facility] Address [address] [place] [address] Care Team Providers Care Storage Garage Attendant Name Role Phone Lynn Saavedra MD Primary Care Provider [phone] Encounter Details Date Type Department Care Team (Latest Contact Info) Description 11/11/2022 11:10 EDT - 11/11/2022 23:59 EDT Hospital Encounter [facility] Pre-Surgical Testing [address] [place] [address] Discharge Disposition: Home or Self Care Social [...] - - Weight 34.2 kg (75 lb 6 oz) 11/11/2022 1057 EDT Height 149.9 cm (4' 11) 11/11/2022 1057 EDT Body Mass Index 15.22 11/11/2022 1057 EDT documented in this encounter Functional Status [...] ORAL Take by mouth every morning. 4 loratadine (CLARITIN) 10 mg tablet TAKE [...] 04/07/2024 9:00 EST Office Visit [facility] Endocrinology - [facility] [address] [place] [address] Vincenzo Rawls MD [address] [facility] [address] [place] [address] 08/22/2024 15:30 EDT Telemedicine [facility] Nephrology - [address] [address] Jose L Whitley MD [address] [place], [place] [address], [address] [place] [address] documented as of this encounter Visit Diagnoses Not on filedocumented in this encounter Historical Medications * This list may reflect changes made after this encounter. GINSENG ORAL Take by mouth every morning. 04/29/2023 GINKGO BILOBA ORAL Take by mouth every morning. 04/29/2023 added in this encounter Care Teams Storage Garage Attendant Relationship Specialty Start Date End Date Lynn Saavedra MD [address] [place] [address] PCP - General 07/07/22 04/26/23 documented as of this encounter
--- OUTSIDE RECORDS SUMMARY | 2024-03-17 12:18 | XMS_ITS | Encounter Summary ---
Author Organization [facility] Address [address] [place] [id number] Care Team Providers Care Director Of Accounts Receivable Name Role Phone SmitaNorbertscott Becerra APRN Primary Care Provider + Reason for Referral * Referral (Routine/Next Available) - Receiving Office to Obtain Authorization Specialty Diagnoses / Procedures Referred By Contac t Referred To Contact Diagnoses Generalized abdominal pain Procedures UPPER ENDOSCOPY (EGD) Dinora Roa MD Phone: tel: fax: Referral ID Status Reason Start Date Expiration Date Visits Requested Visits Authorized [id number] Receiving Office to Obtain Authorization 10/24/2021 1 1 Reason for Visit * Referral (Routine/Next Available) - Receiving Office to Obtain Authorization Specialty Diagnoses / Procedures Referred By Contac t Referred To Contact Diagnoses Generalized abdominal pain Procedures UPPER ENDOSCOPY (EGD) Dinora Roa MD Phone: tel: fax: Referral ID Status Reason Start Date Expiration Date Visits Requested Visits Authorized [id number] Receiving Office to Obtain Authorization 10/24/2021 1 1 Encounter Details Date Type Department Care Team (Latest Contact Info) Description 11/04/2021 10:29 EDT - 11/04/2021 23:59 EDT Hospital Encounter [facility] Endoscopy [address] [place] [address] Dinora Roa MD [address] [place] [address] Generalized abdominal pain Discharge Disposition: Home or Self Care Social [...] Sign Reading Time Taken Comments Blood Pressure 103/67 11/04/2021 1236 EDT Pulse - - Temperature 36.9 ??C (98.4 ??F) 11/04/2021 1051 EDT Respiratory Rate 19 11/04/2021 1236 EDT Oxygen Saturation 99% 11/04/2021 1236 EDT Inhaled Oxygen Concentration - - Weight 42.8 kg (94 lb 6.4 oz) 11/04/2021 1051 ED T Height 149.9 cm (4' 11) 11/04/2021 1051 EDT Body Mass Index 19.07 11/04/2021 1051 EDT documented in this encounter Functional Status [...] other every three hours. 1 Tab 10/27/2018 calcium carbonate/vitamin D3 (VITAMIN D-3 ORAL) Take [...] Code Departure Means Destination Home or Self Fpc documented in this encounter H&P Notes * Dinora Roa MD - 11/04/2021 1100 EDT Endoscopy Sedation for Procedure History & Physical Date: 11/04/2021 Time: 11:44 Location: [facility] Endoscopy Planned Procedure: Upper Endoscopy Chief Complaint/Indications for Procedure: Generalized abdominal pain History Previous Complication with Sedation and/or Anesthesia? No Allergies: Allergies Allergen Reactions ??? Chantix [Varenicline] SEIZURES Current Medications: Current Outpatient Medications Medication ??? acetaminophen (TYLENOL) 325 mg tablet ??? amitriptyline (ELAVIL) 10 mg tablet ??? calcium carbonate/vitamin D3 (VITAMIN D-3 ORAL) ??? cyanocobalamin (VITAMIN B-12) 1,000 mcg/mL injection ??? cyclobenzaprine (FLEXERIL) 10 mg tablet ??? DULoxetine (CYMBALTA) 60 mg capsule ??? ergocalciferol (DRISDOL; VITAMIN D2) 50,000 unit capsule ??? ESTRADIOL ORAL ??? FOLIC ACID ORAL ??? magnesium oxide (MAG-OX) 400 mg tablet ??? metoprolol (LOPRESSOR) 25 mg tablet ??? ONDANSETRON HCL ORAL ??? potassium chloride (MICRO-K) 10 mEq capsule ??? sodium bicarbonate 650 mg tablet ??? traMADol (ULTRAM) 50 mg tablet Current Facility-Administered Medications Medication Route Frequency ??? sodium chloride 0.9 % (NS) infusion intravenous PRN Or ??? lactated ringers (LR) infusion intravenous PRN ??? ondansetron (PF) (ZOFRAN) injection 4 mg intravenous PRN ??? sodium chloride 0.9 % (flush) flush 3 mL intravenous PRN ??? sodium chloride 0.9 % (flush) flush 5 mL intravenous Q8H Past Medical History: Past Medical History: Diagnosis Date ??? Anemia ??? Anomaly, cardiac tachycardia ??? Arrhythmia tachy ??? Chronic kidney disease, stage III (moderate) (HCC) ??? Crohn's disease (HCC-CMS) (HCC) s/p colectomy and small bowel resections with [...] anus ??? 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 Seizures (HCC-CMS) (HCC) just one from chantex ??? Tachycardia rx with b-charu, asymptomatic Social History: Past Surgical History: Procedure Laterality Date ??? COLON SURGERY ??? HYSTERECTOMY ??? ILEOSTOMY OR JEJUNOSTOMY 1983 ??? RECTAL SURGERY anus removal 03/2018, debridement 10/2018 ??? SMALL INTESTINE SURGERY ??? TOTAL COLECTOMY Social History Tobacco Use ??? Smoking status: Current Every Day Smoker Packs/day: 0.25 Years: 45.00 Pack years: 11.25 Start date: 10/10/1976 ??? Smokeless tobacco: Never Used Substance Use Topics ??? Alcohol use: No Comment: rarely Family History: Family History Problem Relation Age of Onset ??? *Other(comment) Mother ??? Pancreatic Cancer Mother ??? Stomach Cancer Neg Hx ??? Rectal Cancer Neg Hx ??? Esophageal Cancer Neg Hx ??? Colon Cancer Neg Hx Review of Systems as pertinent: Physical Exam Vital Signs: BP 125/83 Temp 36.9 ??C (98.4 ??F) (Oral) Resp 20 Ht (!) 149.9 cm (59) Wt (!)42.8 kg (94 lb 6.4 oz) SpO2 100% BMI 19.07 kg/m?? Heart Examination: Cardiac Regularity: Regular Respiratory Examination: Respiratory Pattern: Regular Breath Sounds Right: Clear Breath Sounds Left: Clear Abdominal Examination: Soft, non-tender, bowel sounds normal, no masses, no organomegaly Additional physical exam related to the proposed procedure, patient activity, disease state and treatment as pertinent: Assessment Previous complications with sedation or anesthesia?: No Airway Concerns: None/NA Anesthesia Classification: ASA 2 Plan: Proceed with sedation for procedure Fasting Time: Date of Last Liquid: 11/04/21 Time of Last Liquid: 0600 Date of Last Solid: 11/03/21 Time of Last Solid: 1500 Patient Appropriate Candidate for Planned Sedation?: Yes DINORA ROA MD 11/04/2021 11:44 documented in this encounter Plan of Treatment Upcoming Encounters Date Type Department Care Team (Late st Contact Info) Description 04/07/2024 9:00 EST Office Visit [facility] Endocrinology - [address] [address] Vincenzo Rawls MD [address] [place] [address] [address] [place] [address] 08/22/2024 15:30 EDT Telemedicine [facility] Nephrology - [address] [phone] Jose L Whitley MD [facility], [address] [place] [phone] documented as of this encounter Procedures Procedure Name Priority Date/Time Associated Diagnosis Comments ECG REPORT - SCANNED 11/06/2021 8:54 EDT SURGICAL PATHOLOGY Routine 11/04/2021 11 :54 EDT Generalized abdominal pain UPPER ENDOSCOPY (EGD) Routine 11/04/2021 11:00 EDT Generalized abdominal pain documented in this encounter Results * ECG REPORT - SCANNED (11/06/2021 8:54 EDT) 11/06/2021 8:54 EDT us Scan 2 Study Manager PROCEDURE/MINOR SURGICAL OR DERABLES Final Result * SURGICAL PATHOLOGY (11/04/2021 11:54 EDT) Note to Patient The following pathology results have been interpreted by your pathologist and may be available to you before your health provider has had the opportunity to review them. Please allow time for your provider to receive these results and explore management options, if applicable. 11/06/2021 12:17 [facility] Final Diagnosis A. STOMACH, BIOPSY: - Features consistent with a reactive (chemical) gastropathy with focal erosion. - No intestinal metaplasia or dysplasia. - No Helicobacter pylori identified on routine H&E stain. 11/06/2021 12:17 [facility] Attestation By the signature below, the attending physician certifies that they have 1) personally conducted a gross and/or microscopic examination of the described specimen(s), and/or personally interpreted the results of laboratory testing of the described specimen(s), and 2) personally rendered or confirmed the above diagnosis. 11/06/2021 12:17 [facility] at 1217 Clinical History Generalized abdominal pain 11/06/2021 12:17 [facility] Gross Description A. The specimen is received in formalin labeled with ? Zaira Collins and ? gastric bxs r/o H pylori? are 2 mucosal fragments that measure 0.2 x 0.3 x 0.5 cm and 0.1 x 0.2 x 0.6 cm. The specimen is entirely submitted in 1 cassette. Haley Honeycutt 11/05/2021 10:50 11/06/2021 12:17 EDT [facility] Performing Lab [facility] 11/06/2021 12:17 EDT [facility] Scanned Images 11/06/2021 12:17 EDT [facility] Tissue SPECIMEN FROM STOMACH OBTAINED BY TOTAL GASTRECTOMY / Unknown 11/04/2021 11:54 EDT 11/05/2021 7:48 EDT us Dinora Roa MD PATHOLOGY ORDERABLES Final Resul t Performing Organization Address City/State/[facility] Co de Phone Number [facility] [address] [place] [address] * UPPER ENDOSCOPY (EGD) (11/04/2021 11:00 EDT) Anatomical Region Laterality Modality Endoscopy Narrative 11/04/2021 11:00 EDT [facility] ?? [address] [address] ?? Patient Name ? ZAIRA COLLINS Date of ? 1955 Record Number ? [id number] Date/Time of Procedure ?11/04/2021, 11:00:00 AM Endoscopist ?Dinora Roa ?? Sample Washer ? Referring Physician(s) ?? NANCY Shabazz Anesthesiologist ? PROCEDURE PERFORMED: Upper Endoscopy (EGD) - Biopsy INDICATIONS FOR EXAMINATION: Abdominal pain and h/o crohn's disease Instruments: ? GIF-HQ190 ([id number]) Medications: ?Fentanyl 50 mcg, Versed 5 mg I was in continuous face to face attendance during the administration of moderate sedation services that were monitored by an independent trained observer who had no other duties during the procedure. ? Visualization: ? Good ?Tolerance: Good ?Complications: None ? Extent of Exam: ?second part of duodenum ? Limitations: ?? Procedure Technique: A physical exam was performed. Informed consent was obtained from the patient after explaining all the risks (perforation, bleeding, infection and adverse effects to the medicine) , benefits and alternatives to the procedure which the patient appeared to understand and so stated. ??The patient was connected to the monitoring devices and placed in the left lateral position. Continuous oxygen was provided with a nasal cannula and IV medicine administered through an indwelling cannula. After adequate conscious sedation was achieved, the esophagus was intubated and the scope advanced under direct visualization to the second part of duodenum. The second part of duodenum was identified by visual landmarks. The scope was subsequently removed slowly while carefully examining the color, texture, anatomy, and integrity of the mucosa on the way out. The patient was subsequently transferred to the recovery area in satisfactory condition. The following findings were noted: FINDINGS: GE junction at 38 cm from incisor. Esophagus: Normal. Stomach: Some deformity of the prepyloric antrum. ??Mild gastritis in the antrum. ?? Biopsy performed to r/o H. pylori. Duodenum:Normal. ENDOSCOPIC DIAGNOSIS: Gastritis RECOMMENDATIONS: Await pathology. Sedation Start: 11:43:28 AM ?? Sedation End: 11:58:38 AM Signature: Dinora Roa M.D., F.A.C.G This note was electronically signed on 11/04/2021 12:47:23 PM By Dinora Roa M.D., F.A.C.G Dinora Roa MD GI PROCEDURE ORDERABLES Final Re sult documented in this encounter Visit Diagnoses Diagnosis Generalized abdominal pain Abdominal pain, generalized documented in this encounter Administered Medications Inactive Administered Medications - up to 3 most recent administrations Medication Order MAR Action Action Date Dose Rate Site fentaNYL citrate (PF) injection intravenous, PRN, Starting on Thu11/04/21 at 1147, Until Thu11/04/21 at 1147, Routine Given 11/04/2021 11:47 EDT 50 mcg midazolam (MDV) (VERSED) injection intravenous, PRN, Starting on Thu11/04/21 at 1147, Until Thu11/04/21 at 1151, Routine Given 11/04/2021 11:51 EDT 1 mg Given 11/04/2021 11:49 EDT 2 mg Given 11/04/2021 11:47 EDT 2 mg documented in this encounter Orders Medications Ordered That Gerald ht Not Have Been Administered Count Last Ordered Date First Ordered Date lactated ringers (LR) infusion 1 11/04/2021 ondansetron (PF) (ZOFRAN) injection 4 mg 1 11/04/2021 sodium chloride 0.9 % (flush) flush 3 mL 1 11/04/2021 sodium chloride 0.9 % (flush) flush 5 mL 1 11/04/2021 sodium chloride 0.9 % (NS) infusion 1 11/04 Discharge Count Last Ordered Date First Orde red Date DISCHARGE PATIENT 1 11/04/2021 documented in this encounter Care Teams Director Of Accounts Receivable Relationship Specialty Start Date End Date Jennifer Ordoñez, MORGUE LIBRARIAN [address] [place] [phone] PCP - General 03/22/18 07/06/22 documented as of this encounter
--- OUTSIDE RECORDS SUMMARY | 2024-03-17 12:18 | XMS_ITS | Encounter Summary ---
Author Organization [facility] Address [address] [place] [address] Care Team Providers Care Trailer Assembler Name Role Phone Jennifer Ordoñez MAY Primary Care Provider + Encounter Details Date Type Department Care Team (Late st Contact Info) Description 07/17/2020 Abstract [facility] Nephrology - [address] [address] Jose L Whitley MD 1 [facility], [address] [place] [address] Social History Tobacco Use Types Packs/Day Years Used Date Smoking Tobacco: Every Day Cigarettes 1 40 Smokeless Tobacco: Never Alcohol Use Standard Drinks/Week Comments No 0 (1 standard drink = 0.6 oz pur e alcohol) Interpersonal Safety Answer Date Record ed Physically Hurt Never 10/16/2019 Verbally Threaten Not on file 10/16/2019 Comments Unknown Sex and Gender Information Value Date Recorded [...] Info) Description 04/07/2024 9:00 EST Office Visit [facility] Endocrinology - [address] [phone] Vincenzo Rawls MD [address] [facility] [address] [place] [address] 08/22/2024 15:30 EDT Telemedicine [facility] Nephrology - [facility] [address] [place], [place] [phone] Jose L Whitley MD [facility] [address] [place] [address] documented as of this encounter Procedures Procedure Name Priority Date/Time Associated Diagnosis Comments URINE CHEMICAL (DIP) & SEDIMENT (MICRO) WITHOUT REFLEX TO CULTURE Routine 07/16/2020 11:40 EDT MAGNESIUM Routine 07/16/2020 11:40 EDT BASIC METABOLIC PANEL (BMP) Routine 07/16/2020 11:40 EDT documented in this encounter Results * URINE CHEMICAL (DIP) & SEDIMENT (MICRO) WITHOUT REFLEX TO CULTURE (07/16/2020 11:40 EDT) Protein UA, External neg LAB pH UA, External 7.5 [facility] UA Comment, External LAB Specific [place], Urine, External 1.010 LAB Squam Epithel, UA, External LAB Glucose UA, External neg LAB WBC UA, External 0-5 [facility] Blood UA, External small LAB Bilirubin UA, External neg LAB Nitrite UA, External neg LAB Leukocyte Esterase UA, External trace LAB Clarity UA, External clear LAB Renal Epithelial, External LAB Bacteria, External none LAB Mucus, UA, External none LAB Ketones UA, External neg LAB Casts, External 0-5 [facility] Color UA, External yellow LAB Crystals, External none LAB RBC UA, External 0-5 [facility] Urobilinogen UA, External 0.2 LAB Urine URINE SPECIMEN COLLECTION, CLEAN CATCH / Unknown 07/16/2020 11:40 EDT Historical Provider URINALYSIS ORDERABLES Fin al Result LAB * MAGNESIUM (07/16/2020 11:40 EDT) Pathologist [facility] Magnesium, External 1.7 LAB Blood VENOUS BLOOD / Unknown 07/16/2020 11:40 EDT Historical Provider CHEMISTRY & BLOOD GAS ORD ERABLES Final Result LAB * BASIC METABOLIC PANEL (BMP) (07/16/2020 11:40 EDT) GFR, Calculated, External 28 LAB Glucose, Serum, External 110 LAB Calculated Calcium, External LAB BUN, External 14 LAB Calcium, External 9.5 LAB Chloride, External 104 LAB CO2, External 29 LAB Creatinine, External 1.82 LAB Fasting?, External LAB Potassium, External 4.6 LAB Sodium, External 141 LAB Blood VENOUS BLOOD / Unknown 07/16/2020 11:40 EDT us Historical Provider CHEMISTRY & BLOOD GAS ORD ERABLES Final Result LAB documented in this encounter Visit Diagnoses Not on filedocumented in this encounter Care Teams Trailer Assembler Relationship Specialty Start Date End Date Jennifer Ordoñez, CASTING MACHINE OPERATOR [address] [place] [phone] PCP - General 03/22/18 07/06/22 documented as of this encounter
--- OUTSIDE RECORDS SUMMARY | 2024-03-17 12:18 | XMS_ITS | Encounter Summary ---
Author Organization [facility] Address [address] [place] [address] Care Team Providers Care Supervisor Bottle [employer] Name Role Phone Jennifer Ordoñez MAY Primary Care Provider + Reason for Visit * Auth/Cert Specialty Diagnoses / Procedures Referred By Savannah ware Referred To Contact Diagnoses Disruption of perineal wound Procedures NM SURG DIAGNOSTIC EXAM, ANORECTAL EXAM UNDER ANESTHESIA, ANORECTAL, curretage of a non-healing perineal wound Referral ID Status Reason Start Date Expiration Date Visits Re quested Visits Authorized [id number] 1 1 Encounter Details Date Type Department Care Team (Late st Contact Info) Description 10/11/2020 9:53 EDT Anesthesia Event [facility] OR [address] [place], [place] [id number] Juanjo William MD [address] [place] [address] Level 2 [place] [phone] John Webber MD Anesthesia Record Procedure Summary Procedure Name Responsible Anesthesiologist Anesthesia Start Time Anesthesia Stop Time EXAM UNDER ANESTHESIA, ANORECTAL, curretage of a non-healing perineal wound, and seton placement. (Anus) Juanjo William MD 10/11/20 0953 10/11/20 1049 Events Date Time Event Comment 10/11/2020 0953 An Start The patient was re-evaluated immediately before moderate or deep sedation use, before anesthesia induction, or before the anesthesia procedure. 0953 An Start Data 1008 Anesthesia Ready 1045 an stop data 1049 An Stop 1052 Handoff to RN I completed my handoff [...] Total fentanyl citrate (PF) injection 50 mcg ketAMINE 5 mL prefilled syringe 10 mg lidocaine 2% (PF) injection glass vial 2 0 mg midazolam 1 mg/mL 2 mL vial 1 mg ondansetron (PF) (ZOFRAN) injection 4 mg propOFol injection 60 mg propOFol (DIPRIVAN) injection 155,800 mc g ceFAZolin (ANCEF) syringe 2 g 2 g lactated ringers (LR) infusion 250 mL * Agents Name Insp Isoflurane Exp Isoflurane Insp Desflurane Exp Desflurane Insp Sevoflurane Exp Sevoflurane O2 N2O Air Cumulated Ramon Consumption Cumulated Iso Consumption Aux O2 flow * Blood No blood administrations on file. Lines, Drains, and Airways Type Details Placement Removal Peripheral IV 04/15/18; 1023; Left ; Wrist; Inserted by RN; 1; None; 3.15% Chlorhexidine with IPA; 11/04/21 (not present upon admission); 1057; Discharged; No complications 04/15/18 1023 by Natividad Serra RN 11/04/21 1057 by Rizwana Mendosa, CHARLIE Full Thickness 04/15/18; 1204; Surg ical; Buttock; perineal completion proctectomy; 11/04/21 (not present upon admission); 1109 04/15/18 1204 by Linh Garzon RN 11/04/21 1109 by Rizwana Mendosa, CHARLIE Peripheral IV 10/27/18; 1203; Righ t; Hand; 2 (2 tries by Zuleika); None; 3.15% Chlorhexidine with IPA; 11/04/21; 1057; Discharged; No complications 10/27/18 1203 by Ellie Wilcox RN 11/04/21 1057 by Rizwana Mendosa, CHARLIE Full Thickness 10/27/18; 1338; Surg ical; Perineum; debridement of perianal wound; 11/04/22 10/27/18 1338 by Marily Clark RN 11/04/22 0000 by Isidoro Humphreys LPN Peripheral IV 10/11/20; 0859; 20; 1.25; Left; Antecubital; Inserted by RN (luan); 2; None; 3.15% Chlorhexidine with IPA; 10/11/20; 1220; Discharged, Per order; No complications, Catheter intact, Dressing applied 10/11/20 0859 by Xuan Vegas RN 10/11/20 1220 by Eden Garcia RN Wound 10/11/20; 1014; Inci geri; Left, Lateral; Rectum; N; Full thickness; 11/04/21 (not present upon admission); 1110; Healed 10/11/20 1014 by Marybeth Castro RN 11/04/21 1110 by Rizwana Mendosa RN documented in this encounter Social History Tobacco Use Types Packs/Day Years Used Date Smoking Tobacco: Every Day Cigarettes 0.5 47.4 Started: 10/10/1976 Smokeless Tobacco: Never Alcohol [...] 8:15 EDT Sexual Orientation Not on file COVID-19 Exposure Response Date Recorded In the last month, have you been in contact with someone who was confirmed or suspected to have Coronavirus / COVID-19? No / Unsure 10/11/2020 8:12 EDT documented as of this encounter Functional Status [...] OR Notes * Anesthesia Postprocedure Evaluation - John Webber MD - 10/11/2020 1049 EDT Patient: Zaira Collins Vital signs were reviewed with the recovery nurse. Complete vitals history is available in the Epicflowsheets. Vitals Value Taken Time BP 121/74 10/11/20 1048 Temp .36.5 10/11/20 1049 Resp 18 10/11/20 1049 Pulse From Oximetry 41 BPM 10/11/20 1049 SpO2 96 % 10/11/20 1049 Vitals shown include unvalidated device data. Last Pain Score - Numeric Pain Level (Scale 1-10): 5 Type of Anesthesia - MAC Anesthesia Post Evaluation Post-procedure vitals reviewed and are stable. Level of consciousness: awake Temperature status: normothermia and patient returned to pre-procedure baseline Respiratory status: airway patent and stable Cardiovascular status: stable Hydration status: adequate Nausea/Vomiting: none Pain management: adequate Post-Op Assessment: patient tolerated procedure well with no complications Patient participation: able to participate Disposition: outpatient/home Anesthesia Complications: No apparent anesthesia complications * Anesthesia Preprocedure Evaluation - Juanjo William MD - 10/11/2020 0932 EDT Anesthesia Preprocedure Evaluation Patient Medical History, including Anesthesia History reviewed. Chart and Nursing Notes reviewed, including NPO status and Medication History. Additional ROS/History Findings: Zaira Collins is a 65 y.o. female with PMHx significant for CKDIII, fibromyalgia, renal tubular acidosis, Crohns disease, HTN, seizures, and tachycardia on beta charu therapy. Plan for EXAM UNDER ANESTHESIA, ANORECTAL, curretage of a non-healing perineal wound. Labs: Covid-19: Lab Results Component Value Date COVID-19 rt-PCR Result Negative 04/25/2020 Fully immunized CBC: Lab Results Component Value Date WBC 7.66 12/13/2018 Hemoglobin 12.9 12/13/2018 HCT 39.5 12/13/2018 PLT 371 12/13/2018 BMP: Lab Results Component Value Date Sodium 139 12/13/2018 Potassium 4.7 12/13/2018 Chloride 105 12/13/2018 CO2 23 12/13/2018 BUN 29 (H) 12/13/2018 Creatinine 1.38 (H) 12/13/2018 K+ 5.5 in early September 2020 -- pt reports she has decreased her potassium tabs since those labs were obtained., Echo/EKG: Rhythm strip 2019: sinus Prev anes: Hx of MACs and GA: no complications, DL with Mac 3 blade No current facility-administered medications for this encounter. Current Outpatient Medications Medication ??? acetaminophen (TYLENOL) 325 mg tablet ??? cyanocobalamin (VITAMIN B-12) 1,000 mcg/mL injection [...] tablet ??? traMADol (ULTRAM) 50 mg tablet Allergies Allergen Reactions ??? Chantix [Varenicline] SEIZURES Review of Systems Constitutional: Negative. Negative for fever. Respiratory: Negative for cough. Cardiovascular: Negative for chest pain and palpitations. H/o tachycardia, on metoprolol. Denies syncope, CP, or recent palptations. Able to climb up 2 FOS. Gastrointestinal: Positive for abdominal pain and nausea. Negative for heartburn and vomiting. Chronic abd nausea and discomfort Genitourinary: Positive for flank pain (occasional rt flank pain, resolves with hydration). Neurological: Positive for seizures (remote, from Chantix). Endo/Heme/Allergies: Negative. Does not bruise/bleed easily. Past Medical History: Diagnosis Date ??? Anemia ??? Anomaly, cardiac tachycardia ??? Arrhythmia tachy ??? Chronic kidney disease, stage III (moderate) ??? Crohn's disease ([facility]) s/p colectomy and small bowel resections with ileostomy ??? Depression ??? Diarrhea with dehydration leading to recurrent episodes of ERNESTINA ??? Does not exercise ??? Fibromyalgia ??? Heart murmur ??? Hematuria cystoscopy, renal CT, cytology unremarkable ??? Hepatitis age 31 ??? History of general anesthesia ??? Hypertension ??? Mental disorder ??? 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 Nephrolithiasis unknown type, required procedrues for removal; no recent stones ??? Open wound of skin rectum ??? Postprocedural non-healing wound small cavity anus ??? Renal tubular acidosis dx at [facility], after bowel surgery ??? Seizures ([facility]) just one from chantex ??? Tachycardia rx with b-charu, asymptomatic Relevant Problems /Renal (+) Chronic kidney disease, stage III (moderate) (+) Nephrocalcinosis (+) Nephrolithiasis (+) Renal tubular acidosis Physical Exam Airway Mallampati: II TM distance: >3 FB Neck ROM: full Cardiovascular Rhythm: regular (-) murmur Dental Comments: edentulous Pulmonary Breath sounds clear to auscultation (-) wheezes Abdominal Anesthesia Plan ASA 3 Anesthesia Type - MAC Anesthesia plan and risks discussed. Informed consent obtained from patient. Specific risks discussed were nausea, vomiting, dental injury, nerve damage and bleeding. Anesthesia options and plan discussed in detail, including R/B/As of anesthetic. Patient's questions answered to patient's satisfaction. PAT Note Notes from 09/10/20 through 10/10/20 No notes of this type exist for this encounter. documented in this encounter Plan of Treatment Upcoming Encounters Date Type Department Care Team (Late st Contact Info) Description 04/07/2024 9:00 EST Office Visit [facility] Endocrinology - [facility] [address] [place] [address] Vincenzo Rawls MD 62 [facility] [address] [place] [phone] 08/22/2024 15:30 EDT Telemedicine [facility] Nephrology - [facility] [address] [place], [place] [phone] Jose L Whitley MD 1 [facility], Level 2 [place] [phone] documented as of this encounter Visit Diagnoses Not on filedocumented in this encounter Administered Medications Inactive Administered Medications - up to 3 most recent administrations Medication Order MAR Action Action Date Dose Rate Site ceFAZolin (ANCEF) syringe 2 g 2 g, intravenous, Administer over 10 Minutes, PRE-OP ONCE, 1 dose, On Jazlyn 10/11/20 at 0930, Routine, Preprocedure Given 10/11/2020 10:09 EDT 2 g fentaNYL citrate (PF) injection intravenous, PRN, Starting on Jazlyn 10/11/20 at 1000, Until Jazlyn 10/11/20 at 1049, Routine, Anesthesia Intraprocedure Given 10/11/2020 10:25 EDT 25 mcg Given 10/11/2020 10:00 EDT 25 mcg ketAMINE in NaCl, iso-osmotic (KETALAR) 50 mg/5 mL (10 mg/mL) IV injection intravenous, PRN, Starting on Jazlyn 10/11/20 at 1000, Until Jazlyn 10/11/20 at 1049, Routine, Anesthesia Intraprocedure Given 10/11/2020 10:00 EDT 10 mg lactated ringers (LR) infusion 25 mL/hr, intravenous, CONTINUOUS, Starting on Jazlyn 10/11/20 at 0930, Until Jazlyn 10/11/20 at 1436, Routine, Preprocedure Restarted 10/11/2020 9:59 EDT Continued by Anesthesia 10/11/2020 9:53 EDT 25 mL/hr New Bag 10/11/2020 9:18 EDT 25 mL/hr 25 mL/hr lidocaine (PF) 20 mg/mL (2 %) injection intravenous, PRN, Starting on Jazlyn 10/11/20 at 1004, Until Jazlyn 10/11/20 at 1049, Routine, Anesthesia Intraprocedure Given 10/11/2020 10:04 EDT 20 mg midazolam (PF) (VERSED) injection intravenous, PRN, Starting on Jazlyn 10/11/20 at 0959, Until Jazlyn 10/11/20 at 1049, Routine, Anesthesia Intraprocedure Given 10/11/2020 9:59 EDT 1 mg ondansetron (PF) (ZOFRAN) injection intravenous, PRN, Starting on Jazlyn 10/11/20 at 1000, Until Jazlyn 10/11/20 at 1049, Routine, Anesthesia Intraprocedure Given 10/11/2020 10:00 EDT 4 mg propOFol (DIPRIVAN) injection intravenous, FA IP EQF CONTINUOUS PRN FOR ONE STEP MEDS, Starting on Jazlyn 10/11/20 at 1003, Until Jazlyn 10/11/20 at 1049, Routine, Anesthesia Intraprocedure Rate Change 10/11/2020 10:09 EDT 100 mcg/kg/min 24.6 mL/hr New Bag 10/11/2020 10:03 EDT 200 mcg/kg/min 49.2 mL/hr propOFol (DIPRIVAN) injection intravenous, PRN, Starting on Jazlyn 10/11/20 at 0959, Until Jazlyn 10/11/20 at 1049, Routine, Anesthesia Intraprocedure Given 10/11/2020 10:25 EDT 20 mg Given 10/11/2020 10:13 EDT 20 mg Given 10/11/2020 9:59 EDT 20 mg documented in this encounter Care Teams Supervisor [employer] Relationship Specialty Start Date End Date Jennifer Ordoñez, CATERING SERVICE MANAGER [address] [place] [place] [phone] PCP - General 03/22/18 07/06/22 documented as of this encounter
--- OUTSIDE RECORDS SUMMARY | 2024-03-17 12:18 | XMS_ITS | Encounter Summary ---
Author Organization [facility] Address [address] [place] [address] Care Team Providers Care Family Law Attorney Name Role Phone Jennifer Ordoñez MAY Primary Care Provider + Reason for Visit * Reason Onset Date Comments Other 07/20/2020 Encounter Details Date Type Department Care Team (Late st Contact Info) Description 07/20/2020 Telephone [facility] Transplant - [address] [address] Jose L Whitley MD 1 [facility], Level [address] [place] [address] Other Social History Tobacco Use Types Packs/Day [...] * Telephone Encounter - Pooja Garcia - 07/20/2020 1303 EDT Office called back and said this needs to please me a telemed appt . * Telephone Encounter - Abbie Howell RN - 07/20/2020 0953 EDT ok'd the port treatment. Pt gets weekly hydration. Pt is set up to see us this was done via Mary Ann at PCP office. Note to PSS to add pt 07/31 at 10 am once they get this message back from Dr. Whitley re: what type of appt needed and does he was repeat labs/urines? Will send this note and any lab orders to ATTN: Mary Ann at PCP via e-mail * Telephone Encounter - Pooja Garcia - 07/20/2020 0920 EDT Md wants to know if they should put in a port as she needs fluids Please call [phone] ext [phone] Mary Ann documented in this encounter Plan of Treatment Upcoming Encounters Date Type Department Care Team (Late st Contact Info) Description 04/07/2024 9:00 EST Office Visit [facility] Endocrinology - [facility] [address] [place] [address] Vincenzo Rawls MD 62 [facility] [address] [place] [phone] 08/22/2024 15:30 EDT Telemedicine [facility] Nephrology - [facility] [place] [place] [address] [place], [place] [address] Jose L Whitley MD 1 [facility], Level [address] [place] [phone] documented as of this encounter Visit Diagnoses Not on filedocumented in this encounter Care Teams Family Law Attorney Relationship Specialty Start Date End Date Jennifer Ordoñez APRN [address] [place] [phone] PCP - General 03/22/18 07/06/22 documented as of this encounter
--- OUTSIDE RECORDS SUMMARY | 2024-03-17 12:18 | XMS_ITS | Encounter Summary ---
Author Organization [facility] Address [address] [place] [address] Care Team Providers Care Orthopedic Mechanic Name Role Phone Jennifer Ordoñez APRN Primary Care Provider + Lynn Saavedra MD Primary Care Provider [phone] Chary Ordoñez Primary Care Provider [phone] Reason for Referral * Laboratory Services (Routine/Next Available) - New Request Specialty Diagnoses / Procedures Referred By Contjosee t Referred To Contact Diagnoses Stage 3 chronic kidney disease, unspecified whether stage 3a or 3b CKD ([facility]) Procedures PHOSPHORUS Jose L Whitley MD Phone: tel: fax: Referral ID Status Reason Start Date Expiration Date V isits Requested Visits Authorized [id number] New Request 2021 1 1 * Laboratory Services (Routine/Next Available) - New Request Specialty Diagnoses / Procedures Referred By Contac t Referred To Contact Diagnoses Stage 3 chronic kidney disease, unspecified whether stage 3a or 3b CKD ([facility]) Procedures MAGNESIUM Jose L hWitley MD Phone: tel: fax: Referral ID Status Reason Start Date Expiration Date V isits Requested Visits Authorized [id number] New Request 2021 1 1 * Laboratory Services (Routine/Next Available) - New Request Specialty Diagnoses / Procedures Referred By Contac t Referred To Contact Diagnoses Stage 3 chronic kidney disease, unspecified whether stage 3a or 3b CKD ([facility]) Procedures BASIC METABOLIC PANEL (BMP) Jose L Whitley MD Phone: tel: fax: Referral ID Status Reason Start Date Expiration Date V isits Requested Visits Authorized [id number] New Request 2021 1 1 Reason for Visit * Reason Onset Date Comments Appointment Related 2021 Encounter Details Date Type Department Care Team ([facility] Contact Info) Description 2021 Telephone [facility] Nephrology - [address] [id number] Joes L Whitley MD 1 [facility], [address] [place] [address] Appointment Related Social History Tobacco [...] encounter Miscellaneous Notes * Telephone Encounter - Jes Kolb RN - [address] whitley last office note on 09/23/21: To get BMP, magnesium and phosphorus LEVAR and then follow. Lab orders sent * Telephone Encounter - Fritz Acevedo - 2021 1010 EDT [facility] calling pt has appt scheduled for lab draw on 10/04 but no lab orders are placed can you please place some and send to [phone] documented in this encounter Plan of Treatment Upcoming Encounters Date Type Department Care Team (Late st Contact Info) Description 04/07/2024 9:00 EST Office Visit [facility] Endocrinology - [address] [address] Vincenzo Rawls MD 62 [facility] [address] [place] [address] 08/22/2024 15:30 EDT Telemedicine [facility] Nephrology - [place] [address] [place], [place] [phone] Jose L Whitley MD 1 [facility], Level [address] [place] [address] documented as of this encounter Results * PHOSPHORUS (09/30/2021 11:05 EDT) Pathologist [facility] Phosphorus 3.8 2.5 - 4.5 mg/dL 09/30/2021 12:09 EDT [facility] Blood VENOUS BLOOD / Unknown Venipuncture / Unknown 09/30/2021 11:05 EDT 09/30/2021 11:05 EDT Jose L Whitley MD CHEMISTRY & BLOOD GAS ORDERA BLES Final Result [facility] [address] [place] [address] * MAGNESIUM (09/30/2021 11:05 EDT) Pathologist [facility] Magnesium 1.8 1.7 - 2.8 mg/dL 09/30/2021 12:09 EDT [facility] Blood VENOUS BLOOD / Unknown Venipuncture / Unknown 09/30/2021 11:05 EDT 09/30/2021 11:05 EDT Jose L Whitley MD CHEMISTRY & BLOOD GAS ORDERA BLES Final Result [facility] [address] [place] [address] * (ABNORMAL) BASIC METABOLIC PANEL (BMP) (09/30/2021 11:05 EDT) Pathologist [facility] Sodium 141 136 - 145 mmol/L 09/30/2021 12:09 [facility] Potassium 4.1 3.5 - 5.0 mmol/L 09/30/2021 12:09 [facility] Chloride 105 96 - 110 mmol/L 09/30/2021 12:09 [facility] CO2 Total 29 22 - 32 mmol/L 09/30/2021 12:09 [facility] Anion Gap 7 5 - 14 09/30/2021 12:09 [facility] Glucose 94 70 - 100 mg/dL 09/30/2021 12:09 [facility] Calcium 9.3 8.5 - 10.5 mg/dL 09/30/2021 12:09 [facility] BUN 23 10 - 26 mg/dL 09/30/2021 12:09 [facility] Creatinine 1.70(H) 0.52 - 1.04 mg/dL 09/30/2021 12:09 [facility] eGFR 33(L) >60 mL/min/1.73 m2 09/30/2021 12:09 [facility] Blood VENOUS BLOOD / Unknown Venipuncture / Unknown 09/30/2021 11:05 EDT 09/30/2021 11:05 EDT us Jose L Whitley MD CHEMISTRY & BLOOD GAS ORDERA BLES Final Result [facility] [address] [place] [address] documented in this encounter Visit Diagnoses Diagnosis Stage 3 chronic kidney disease, unspecified whether stage 3a or 3b CKD ([facility] Primary documented in this encounter Care Teams Orthopedic Mechanic Relationship Specialty Start Date End Date Jennifer Ordoñez APRN [address] [place] [phone] PCP - General 03/22/18 07/06/22 Lynn Saavedra MD [address] [place] [place] [phone] PCP - General 07/07/22 04/26/23 Chary Ordoñez [address] [phone] PCP - General Family Medicine - Primary Care 04/27/23 documented as of this encounter
--- OUTSIDE RECORDS SUMMARY | 2024-03-17 12:18 | XMS_ITS | Encounter Summary ---
Author Organization [facility] Address [address] [place] [address] Care Team Providers Care Educational Coordinator Name Role Phone Jennifer Ordoñez MAY Primary Care Provider + Reason for Visit * Reason Onset Date Comments Appointment Related 09/07/2020 returning ca ll Encounter Details Date Type Department Care Team (Late st Contact Info) Description 09/07/2020 Telephone [facility] General Surgery - [facility] [address] [place] [address] Ryan Ruiz MD [address] [place] [address], [address] [place] [address] Appointment Related (returning call) Social History Tobacco Use Types Packs/Day Years [...] Telephone Encounter - Li Carvajal RN - 09/07/2020 1050 EDT Patient is s/p 10/27/20POSTOPERATIVE DIAGNOSIS: Nonhealing perineal wound. ??PROCEDURE: Opening and debridement of a perianal wound measuring 3 x 1 x 4 cm. ??SURGEON: Ryan Ruiz MD FACS FASCRS. She has called to reschedule a new appointment due to continued non healing perineal wound. I was asked to review as she was scheduled into November with Dr Ruiz. I am able to move up this visit to 09/26/20 at 1045 and await the patient confirmation of this new appointment. * Telephone Encounter - Meliton Mtz - 09/07/2020 1020 EDT Patient returning call. Senior Property Manager obtained alternate number if no answer on Home # and no voicemail. documented in this encounter Plan of Treatment Upcoming Encounters Date Type Department Care Team (Late st Contact Info) Description 04/07/2024 9:00 EST Office Visit [facility] - [facility] [address] [place] [address] Vincenzo Rawls MD 62 [facility] [address] [place] [address] 08/22/2024 15:30 EDT Telemedicine [facility] Nephrology - [address] [phone] Jose L Whitley MD 1 [facility], [address] [place] [phone] documented as of this encounter Visit Diagnoses Not on filedocumented in this encounter Care Teams Educational Coordinator Relationship Specialty Start Date End Date Jennifer Ordoñez APRN [address] [place] [phone] PCP - General 03/22/18 07/06/22 documented as of this encounter
--- OUTSIDE RECORDS SUMMARY | 2024-03-17 12:18 | XMS_ITS | Encounter Summary ---
Author Organization [facility] Address [address] [place] [address] Care Team Providers Care Reading Instructor Name Role Phone Jennifer Ordoñez APRN Primary Care Provider + Lynn Saavedra MD Primary Care Provider [phone] Chary Ordoñez Primary Care Provider [phone] Encounter Details Date Type Department Care Team (Late st Contact Info) Description 04/10/2021 Lab Requisition [facility] Pathology & Laboratory Medicine - [address] [address] Outr Resulting Lab, Provider Social History Tobacco [...] Info) Description 04/07/2024 9:00 EST Office Visit [facility] Endocrinology - [facility] [address] [place], [place] [id number] Vincenzo Rawls MD [address] [place] [address] [address] [place] [address] 08/22/2024 15:30 EDT Telemedicine [facility] Nephrology - [address] [id number] Jose L Whitley MD [address] [place], [place] [address], [address] [place] [phone] documented as of this encounter Procedures Procedure Name Priority Date/Time Associated Diagnosis Comments ZZCOVID-19 TEST [facility] PCR Today 04/10/2021 10:15 EST COVID-19 TESTING Routine 04/10/2021 10:1 5 EST documented in this encounter Results * COVID-19 TEST [facility] PCR (04/10/2021 10:15 EST) Swab 04/10/2021 10:1 5 EST 04/10/2021 21:30 EST us Provider Outr Resulting Lab MICROBIOLOGY - GENER AL ORDERABLES Final Result [facility] [address] [place] [address] * COVID-19 TESTING (04/10/2021 10:15 EST) COVID-19 rt-PCR Result Negative Negative 04/11/2021 13:29 EST [facility] Comment: This test has not been FDA cleared or approved. This test has been authorized by FDA under an EUA for use by authorized laboratories. This test has been authorized only for detection of nucleic acid from 2019-nCoV, not for any other viruses or pathogens. This test is only authorized for the duration of the declaration that circumstances exist justifying the authorization of emergency use of in vitro diagnostic tests for detection and/or diagnosis of 2019-nCoV under section 564(b)(1) of Act, 21 U.S.C ?? 360bbb-3(b) (1), unless the authorization is terminated or revoked sooner. Negative results do not preclude 2019-nCoV infection and should not be used as the sole basis for treatment or other patient management decisions. Negative results must be combined with clinical observations, patient history, and epidemiological information. This test was developed and its performance characteristics determined by [facility]. It has not been cleared or approved by the US Food and Drug Administration. FDA does not require this test to go through premarket FDA review. This test is used for clinical purposes. It should not be regarded as investigational or for research. This laboratory is certified under the Clinical Laboratory Improvement Amendments (CLIA) as qualified to perform high complexity clinical laboratory testing. Laboratory Developed Test (LDT) Performed on the [employer] 7 Flex RT-PCR System. Performing Lab [facility] 04/11/2021 13:29 EST [facility] Swab 04/10/2021 10:1 5 EST 04/10/2021 21:30 EST us Provider Outr Resulting Lab MICROBIOLOGY - GENER AL ORDERABLES Final Result [facility] [address] [place] [address] documented in this encounter Visit Diagnoses Not on filedocumented in this encounter Care Teams Reading Instructor Relationship Specialty Start Date End Date Jennifer Ordoñez APRN [address] [place] [address] PCP - General 03/22/18 07/06/22 Lynn Saavedra MD [address] [place] [address] PCP - General 07/07/22 04/26/23 Chary Ordoñez [address] [place] [address] PCP - General Family Medicine - Primary Care 04/27/23 documented as of this encounter
--- OUTSIDE RECORDS SUMMARY | 2024-03-17 12:18 | XMS_ITS | Encounter Summary ---
Author Organization [facility] Address [address] [place] [address] Care Team Providers Care Chief Creative Officer Name Role Phone Jennifer Ordoñez MAY Primary Care Provider + Reason for Visit * Reason Comments Follow-up Non-healing perineal wound Encounter Details Date Type Department Care Team (Late st Contact Info) Description 09/26/2020 14:30 EDT Office Visit [facility] - [address] [address] Ryan Ruiz MD [address] [place] [address], [address] [place] [address] Encounter for post surgical wound check (Primary Dx) Social History Tobacco Use [...] Taken Comments Blood Pressure - - Pulse 96 09/26/2020 1429 EDT Temperature - - Respiratory Rate - - Oxygen Saturation - - Inhaled Oxygen Concentration - - Weight 40.9 kg (90 lb 3.2 oz) 09/26/2020 1429 ED T Height 149.9 cm (4' 11.02) 09/26/2020 1429 EDT Body Mass Index 18.21 09/26/2020 1429 EDT documented in this encounter Functional Status [...] Progress Notes * Ryan Ruiz MD - 09/26/2020 1430 EDT Subjective: Patient ID: Zaira Collins is an 65 y.o. female. Chief Complaint Patient presents with ??? Follow-up Non-healing perineal wound HPI Zaira underwent removal of her anus in March 2018 and then in October 2018 I had to take her backto the operating room for a nonhealing wound. At that point I just debrided it and saucerized it. Isaw her once and things were healing well and she has not returned since. Over the last couple months she has noticed increasing drainage, sometimes foul- smelling to her though her colleague and person accompanying her has never been able to smell anything. Denies any pain, pressure, fevers or chills. Patient Active Problem List Diagnosis ??? Chronic kidney disease, stage III (moderate) ??? Tachycardia ??? Hematuria ??? Diarrhea with dehydration ??? Nephrocalcinosis ??? Renal tubular acidosis ??? Nephrolithiasis ??? Crohn's disease (HCC-CMS) ??? Fibromyalgia ??? Disruption of perineal wound Past Medical History: Diagnosis Date ??? Anemia ??? Anomaly, cardiac tachycardia ??? Chronic kidney disease, stage III (moderate) (HCC-CMS) ??? Crohn's disease (HCC-CMS) s/p colectomy and small bowel resections with ileostomy ??? Depression ??? Diarrhea with dehydration leading to recurrent episodes of ERNESTINA ??? Fibromyalgia ??? Heart murmur ??? Hematuria cystoscopy, renal CT, cytology unremarkable ??? Mental disorder ??? 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 Nephrolithiasis unknown type, required procedrues for removal; no recent stones ??? Renal tubular acidosis dx at [facility] [place] [place], after bowel surgery ??? Tachycardia rx with b-charu, asymptomatic Past Surgical History: Procedure Laterality Date ??? COLON SURGERY ??? HYSTERECTOMY ??? RECTAL SURGERY ??? SMALL INTESTINE SURGERY ??? TOTAL COLECTOMY Family History Problem Relation Age of Onset ??? Stomach Cancer Neg Hx ??? Rectal Cancer Neg Hx ??? Pancreatic Cancer Neg Hx ??? Esophageal Cancer Neg Hx ??? Colon Cancer Neg Hx Social Social History Tobacco Use ??? Smoking status: Current Every Day Smoker Packs/day: 1.00 Years: 40.00 Pack years: 40.00 ??? Smokeless tobacco: Never Used Substance Use Topics ??? Alcohol use: No ??? Drug use: Yes Frequency: 2.0 times per week Types: Marijuana Current Outpatient Medications on File Prior to Visit Medication Sig Dispense Refill ??? acetaminophen (TYLENOL) 325 mg tablet Take 3 Tabs by mouth every 6 hours. Please alternate taking with ibuprofen so you are taking one or the other every three hours. (Patient not taking: Reported on 09/26/2020) 1 Tab 0 ??? cyanocobalamin (VITAMIN B-12) 1,000 mcg/mL injection Inject 1,000 mcg into the muscle every 28 days. ??? cyclobenzaprine (FLEXERIL) 10 mg tablet Take 10 mg by mouth 3 times daily. ??? DULoxetine (CYMBALTA) 60 mg capsule Take 30 mg by mouth daily. ??? ergocalciferol (DRISDOL; VITAMIN D2) 50,000 unit capsule Take 50,000 Units by mouth every 7 days. ??? ESTRADIOL ORAL Take 1 tablet by mouth daily. ??? FOLIC ACID ORAL Take 1 Tab by mouth daily. ??? magnesium oxide (MAG-OX) 400 mg tablet Take 800 mg by mouth 2 times daily. ??? metoprolol (LOPRESSOR) 25 mg tablet Take 25 mg by mouth daily. ??? ONDANSETRON HCL ORAL Take 4 mg by mouth 3 times daily. ??? potassium chloride (MICRO-K) 10 mEq capsule Take 20 mEq by mouth 2 times daily. ??? sodium bicarbonate 650 mg tablet Take 2,600 mg by mouth 3 times daily. ??? traMADol (ULTRAM) 50 mg tablet Take 25 mg by mouth every 8 hours as needed for Pain. No current facility-administered medications on file prior to visit. Allergies Allergen Reactions ??? Chantix [Varenicline] SEIZURES Review of Systems Constitutional: Negative for chills, fever and weight loss. Respiratory: Negative for shortness of breath. Cardiovascular: Negative for chest pain and palpitations. Gastrointestinal: Positive for abdominal pain. Negative for blood in stool. Endo/Heme/Allergies: Does not bruise/bleed easily. - See HPI Objective: Pulse 96 Ht (!) 149.9 cm (59.02) Wt (!) 40.9 kg (90 lb 3.2 oz) BMI 18.21 kg/m?? Physical Exam Constitutional: General: She is [...] There is no abdominal tenderness. Genitourinary: Comments: The perineal wound has healed and with good epithelialization. In the very anterior portion there is a small 3 mm opening and when she Valsalva's there is little bit of purulent fluid. Discerning tissues are not erythematous or tender. No evidence of infection Musculoskeletal: General: No edema. Normal range of motion. Skin: General: Skin is warm and dry. Coloration: Skin is not pale. Findings: No rash. Neurological: Mental Status: She is alert and oriented to person, place, and time. Psychiatric: Behavior: Behavior normal. Judgment: Judgment normal. Assessment: Things have healed in 90% [address] way but there is a small anterior opening. I suspect there is a small cavity with granulation tissue. I do not think it will get better without surgical intervention. Plan: We can bring her to the operating room and under monitored anesthesia care I can anesthetize the area, open it up a small amount, curetted out the tissues and I expect that we will close finally. Positioning will be lithotomy (Z48.89) Encounter for post surgical wound check (primary encounter diagnosis) Ryan Ruiz MD No orders of the defined types were placed in this encounter. documented in this encounter Plan of Treatment Upcoming Encounters Date Type Department Care Team (Late st Contact Info) Description 04/07/2024 9:00 EST Office Visit [facility] Endocrinology - [address] [phone] Vincenzo Rawls MD [address] [place] [address] [address] [place] [address] 08/22/2024 15:30 EDT Telemedicine [facility] Nephrology - [address] [phone] Jose L Whitley MD [address] [place], [place] [address], [address] [place] [phone] documented as of this encounter Visit Diagnoses Diagnosis Encounter for post surgical wound check- Primary documented in this encounter Orders Case Request Count Last Ordered Date First Orde red Date CASE REQUEST OPERATING ROOM 1 09/26/2020 documented in this encounter Care Teams Chief Creative Officer Relationship Specialty Start Date End Date Jennifer Ordoñez, MAY [address] [place] [address] PCP - General 03/22/18 07/06/22 documented as of this encounter
--- OUTSIDE RECORDS SUMMARY | 2024-03-17 12:18 | XMS_ITS | Encounter Summary ---
Author Organization [facility] Address [address] [place] [address] Care Team Providers Care Student Education Specialist Name Role Phone Jennifer Ordoñez MAY Primary Care Provider + Encounter Details Date Type Department Care Team (Late st Contact Info) Description 10/22/2021 Documentation Visit [facility] Endoscopy [address] [place] [address] Dinora Roa MD [facility] [address] [place] [address] Social History Tobacco Use Types [...] Refills Last Filled Start Date End Date amitriptyline (ELAVIL) 10 mg tablet Take 2 Tablets by mouth at bedtime. 60 Tablet 5 10/22/2021 documented in this encounter Progress Notes * Dinora Roa MD - 10/22/2021 1410 EDT Gastroenterology & Hepatology Initial Visit Reason for Referral: Crohn's disease Referring Provider: Jennifer Ordoñez HPI: Zaira Collins is a 66 y.o. female with a history of Crohn's disease, status post multiple surgeries currently with proctocolectomy and ileostomy. From what I can gather reviewing her records from [facility], she was seen by Dr. Horton in the past and was felt to have no evidence of active inflammatorybowel disease. She has had issues with chronic abdominal pain, nausea, and high output from her ileostomy. This is managed with Imodium to reduce stoma output, and low-dose TCA for abdominal pain. She describes pain that is in the periumbilical area, often sharp and severe drops her to the floor,occurs anywhere from once a day to several times per day, worse with eating, sometimes wakes her from sleep at night, associated with diaphoresis and some nausea but no vomiting. She does not see anyblood in the stools. She was found to have gallbladder sludge however she has seen Dr. Ruiz who does not feel that it is likely that the pain is from her gallbladder and also feels that surgery would be complicated due to her multiple prior surgeries. She did used to take Aleve and ibuprofen but does not take much anymore. She did have an ultrasound done at [facility] which supposedly showed gallbladder sludge but otherwise did not show a cause for her abdominal pain. She had an ileoscopy performed in the past that [facility] by Dr. Horton which reportedly showed no active Crohn's disease. PMH: Past Medical History: Diagnosis Date ??? Anemia ??? Anomaly, cardiac tachycardia ??? Arrhythmia tachy ??? Chronic kidney disease, stage III (moderate) ??? Crohn's disease (HCC-CMS) s/p colectomy and [...] anus ??? Renal tubular acidosis dx at [facility] [place] after bowel surgery ??? Seizures (HCC-CMS) just one from chantex ??? Tachycardia rx with b-charu, asymptomatic PSH: Past Surgical History: Procedure Laterality Date ??? COLON SURGERY ??? HYSTERECTOMY ??? RECTAL SURGERY anus removal 03/2018, debridement 10/2018 ??? SMALL INTESTINE SURGERY ??? TOTAL COLECTOMY ROS: A 10-point ROS was performed and is negative other than stated in HPI. Current Outpatient Medications on File Prior to Visit Medication Sig Dispense Refill ??? acetaminophen (TYLENOL) 325 mg tablet Take 3 Tabs by mouth every 6 hours. Please alternate taking with ibuprofen so you are taking one or the other every three hours. (Patient not taking: Reported on 2021) 1 Tab 0 ??? calcium carbonate/vitamin D3 (VITAMIN D-3 ORAL) Take by mouth. ??? cyanocobalamin (VITAMIN B-12) 1,000 mcg/mL injection Inject 1,000 mcg into the muscle every 28 days. ??? cyclobenzaprine (FLEXERIL) 10 mg tablet Take 5 mg by mouth 3 times daily. ??? DULoxetine (CYMBALTA) 60 mg capsule Take 30 mg by mouth daily. ??? ergocalciferol (DRISDOL; VITAMIN D2) 50,000 unit capsule Take 50,000 Units by mouth every 7 days. (Patient not taking: Reported on 2021) ??? ESTRADIOL ORAL Take 1 tablet by mouth daily. ??? FOLIC ACID ORAL Take 1 Tab by mouth daily. ??? magnesium oxide (MAG-OX) 400 mg tablet Take 800 mg by mouth daily. ??? metoprolol (LOPRESSOR) 25 mg tablet Take 12.5 [...] Allergen Reactions ??? Chantix [Varenicline] SEIZURES Social History: Social History Tobacco Use ??? Smoking status: Current Every Day Smoker Packs/day: 0.50 Years: 45.00 Pack years: 22.50 Start date: 10/10/1976 ??? Smokeless tobacco: Never Used Substance Use Topics ??? Alcohol use: No Comment: rarely ??? Drug use: Yes Frequency: 14.0 times per week Types: Marijuana Comment: twice daily, smokes Family History: Her mother had Crohn's and pancreatic cancer Physical Exam: VS: Temperature 94.9, weight 98, BP 115/67, pulse 95. General: In NAD HEENT: No scleral icterus, MMM Heart: RR, no murmur Lungs: clear Abdomen: Soft, mild to moderate periumbilical tenderness, multiple surgical scars from prior abdominal surgeries, Nondistended, No hepatosplenomegaly Extremities: No peripheral edema Skin: No evident findings Labs and Imaging: I reviewed the available labs in [facility]. CRP was 1.0 in 2014. BUN was 23, creatinine 1.7, hemoglobin 12.1. MR of the pelvis in 2018 showed a fluid collection along the superior aspect of the anal canal. There were inflammatory changes in the pelvis adjacent to the fluid collection. ERCP in 2016 showed intra and extrahepatic bile duct dilation but no definite filling defect Impression: 66-year-old female with a past history of Crohn's disease, status post proctocolectomy and ileostomy, history of fistula, persistent drainage from chronic perineal wound. The etiology of her abdominal pain remains uncertain. I think it is unlikely that she has active Crohn's, based on her past history and evaluation. I think it would be appropriate to exclude peptic ulcer disease as she is a smoker. It is unclear to me whether the gallbladder is the source of her pain however it is clear that surgery would be difficult. I also think it is possible that her pain may be functional. More than 50% of this session was spent counseling the patient on these topics face to face. Total time spent was approximately 45 minutes including taking the history, counseling the patient and preparing the report. Plan: 1. We will schedule upper endoscopy. 2. Continue use of Imodium to control output from her stoma and ondansetron for nausea. 3. She was advised to increase the dose of amitriptyline to 20 mg/day. A new prescription was provided. 4. Consider trial of PPI therapy pending results of EGD. DINORA ROA MD 10/22/2021 documented in this encounter Plan of Treatment Upcoming Encounters Date Type Department Care Team (Late st Contact Info) Description 04/07/2024 9:00 EST Office Visit [facility] Endocrinology - [address] [address] Vincenzo Rawls MD [address] [facility] [address] [place] [address] 08/22/2024 15:30 EDT Telemedicine [facility] Nephrology - [address] [address] Jose L Whitley MD [facility], [address] [place] [phone] documented as of this encounter Visit Diagnoses Not on filedocumented in this encounter Care Teams Student Education Specialist Relationship Specialty Start Date End Date Jennifer Ordoñez, CALL CENTER OPERATIONS MANAGER [address] [place] [address] PCP - General 03/22/18 07/06/22 documented as of this encounter
--- OUTSIDE RECORDS SUMMARY | 2024-03-17 12:18 | XMS_ITS | Encounter Summary ---
Author Organization [facility] Address [address] [place] [address] Care Team Providers Care Care Nurse Rn Name Role Phone Jennifer Ordoñez MAY Primary Care Provider + Reason for Visit * Reason Onset Date Comments Follow-up 06/22/2020 Encounter Details Date Type Department Care Team (Late st Contact Info) Description 06/22/2020 Telephone [facility] Nephrology - [address] [address] Jose L Whitley MD [address] [place] [address], [address] [place] [address] Follow-up Social History Tobacco Use [...] Encounter - Jose L Whitley MD - 06/22/2020 1131 EDT The patient was a No Show on 06/11/2020. Creatinine increase noted - it was 1.37 mg/dL in October 2019 and has risen to 2.07 mg/dL on 06/20/2020. Cause of ERNESTINA on CKD is unclear. PLAN: Urinalysis and repeat BMP next week - both tests have been ordered. She needs to reschedule the last missed visit. The PCP would be notified as well. documented in this encounter Plan of Treatment Upcoming Encounters Date Type Department Care Team (Late st Contact Info) Description 04/07/2024 9:00 EST Office Visit [facility] Endocrinology - [address] [address] Vincenzo Rawls MD [address] [place] [address] [address] [place] [phone] 08/22/2024 15:30 EDT Telemedicine [facility] Nephrology - [facility] [address] [place], [place] [address] Jose L Whitley MD [facility] [address] [place] [phone] documented as of this encounter Visit Diagnoses Diagnosis Acute renal failure, unspecified acute renal failure type (HCC-CMS)- Primary documented in this encounter Care Teams Care Nurse Rn Relationship Specialty Start Date End Date Jennifer Ordoñez APRN [address] [place] [address] PCP - General 03/22/18 07/06/22 documented as of this encounter
--- OUTSIDE RECORDS SUMMARY | 2024-03-17 12:18 | XMS_ITS | Encounter Summary ---
Author Organization [facility] Address [address] [place] [address] Care Team Providers Care Transportation Museum Helper Name Role Phone Jennifer Ordoñez MAY Primary Care Provider + Encounter Details Date Type Department Care Team (Latest Contact Info) Description 10/11/2020 Travel Social History Tobacco Use Types Packs/Day Years [...] Assessment Author No 04/16/2018 12:00 Sa karlie Moniuqe RN * Because of a physical, mental, [...] Office Visit [facility] Endocrinology - [address] [address] Vincenzo Rawls MD [address] [place] [address] [address] [place] [address] 08/22/2024 15:30 EDT Telemedicine [facility] Nephrology - [address] [phone] Jose L Whitley MD 1 [facility], [address] [place] [phone] documented as of this encounter Visit Diagnoses Not on filedocumented in this encounter Care Teams Transportation Museum Helper Relationship Specialty Start Date End Date Jennifer Ordoñez APRN [address] [place] [phone] PCP - General 03/22/18 07/06/22 documented as of this encounter
--- OUTSIDE RECORDS SUMMARY | 2024-03-17 12:18 | XMS_ITS | Encounter Summary ---
Author Organization [facility] Address [address] [place] [address] Care Team Providers Care Coal Picker Name Role Phone Jennifer Ordoñez APRN Primary Care Provider + Lynn Saavedra MD Primary Care Provider [phone] Chary Ordoñez Primary Care Provider [phone] Encounter Details Date Type Department Care Team (Late st Contact Info) Description 04/26/2020 Lab Requisition [facility] Pathology & Laboratory Medicine - [address] [address] Outr Resulting Lab, Provider Social History Tobacco [...] Info) Description 04/07/2024 9:00 EST Office Visit [facility] Endocrinology - [address] [phone] Vincenzo Rawls MD [address] [place] [address] [address] [place] [address] 08/22/2024 15:30 EDT Telemedicine [facility] Nephrology - [address] [address] Jose L Whitley MD 1 [facility], Level 2 [place] [address] documented as of this encounter Procedures Procedure Name Priority Date/Time Associated Diagnosis Comments ZZCOVID-19 TEST [facility] PCR Today 04/25/2020 11:30 EST COVID-19 TESTING Routine 04/25/2020 11:3 0 EST documented in this encounter Results * COVID-19 TEST [facility] PCR (04/25/2020 11:30 EST) Swab ENTIRE NASOPHARYNX / Unknown 04/25/2020 11:30 EST 04/26/2020 16:21 EST us Provider Outr Resulting Lab MICROBIOLOGY - GENER AL ORDERABLES Final Result [facility] [address] [place] [address] * COVID-19 TESTING (04/25/2020 11:30 EST) COVID-19 rt-PCR Result Negative Negative 04/27/2020 13:10 EST [facility] Comment: This test was developed and its performance characteristics determined by [facility]. It has not been cleared or approved by the US Food and Drug Administration. FDA does not require this test to go through premarket FDA review. This test is used for clinical purposes. It should not be regarded as investigational or for research. This laboratory is certified under the Clinical Laboratory Improvement Amendments (CLIA) as qualified to perform high complexity clinical laboratory testing. This test is based on the CDC COVID-19 Emergency Use Authorization (EUA) assay, with minor modification as defined by the FDA Performed on the [employer] 7 Pro RT-PCR System. This test has not been FDA cleared [...] clinical observations, patient history, and epidemiological information. Performing Lab [facility] 04/27/2020 13:10 EST [facility] Swab 04/25/2020 11:3 0 EST 04/26/2020 16:21 EST us Provider Outr Resulting Lab MICROBIOLOGY - GENER AL ORDERABLES Final Result Performing Organization Address City/State/[facility] Co de Phone Number [facility] [address] [place] [address] documented in this encounter Visit Diagnoses Not on filedocumented in this encounter Care Teams Coal Picker Relationship Specialty Start Date End Date Jennifer Ordoñez APRN [address] [place] [address] PCP - General 03/22/18 07/06/22 Lynn Saavedra MD [address] [place] [address] PCP - General 07/07/22 04/26/23 Chary Ordoñez [address] [place] [address] PCP - General Family Medicine - Primary Care 04/27/23 documented as of this encounter
--- OUTSIDE RECORDS SUMMARY | 2024-03-17 12:18 | XMS_ITS | Encounter Summary ---
Author Organization [facility] Address [address] [place] [address] Care Team Providers Care Technical Recruiter Name Role Phone Jennifer Ordoñez MAY Primary Care Provider + Encounter Details Date Type Department Care Team (Late st Contact Info) Description 12/06/2021 Abstract [facility] Nephrology - [address] [address] Jose L Whitley MD 1 [facility], Level 2 [place] [address] Social History Tobacco Use Types [...] Info) Description 04/07/2024 9:00 EST Office Visit [facility] Endocrinology - [address] [address] Vincenzo Rawls MD [address] [facility] [address] [place] [address] 08/22/2024 15:30 EDT Telemedicine [facility] Nephrology - [address] [phone] Jose L Whitley MD [address] [place], [place] [address], [address] 2 [place] [phone] documented as of this encounter Procedures Procedure Name Priority Date/Time Associated Diagnosis Comments PHOSPHORUS Routine 12/05/2021 10:40 EDT MAGNESIUM Routine 12/05/2021 10:40 EDT LIPID PROFILE (INCLUDES CHOLESTEROL, TRIGLYCERIDES, HDL, LDL) Routine 12/05/2021 10:40 EDT COMPREHENSIVE METABOLIC PANEL (CMP) Routine 12/05/2021 10:40 EDT documented in this encounter Results * LIPID PROFILE (INCLUDES CHOLESTEROL, TRIGLYCERIDES, HDL, LDL) (12/05/2021 10:40 EDT) Cholesterol, External 188 [facility] Triglycerides, External 180 [facility] HDL, External 65 [facility] LDL, External 87 [facility] Chol/HDL Ratio, External [facility] Fasting?, External [facility] Blood VENOUS BLOOD / Unknown 12/05/2021 10:40 EDT Historical Provider CHEMISTRY & BLOOD GAS ORD ERABLES Final Result [facility] * MAGNESIUM (12/05/2021 10:40 EDT) Magnesium, External 1.9 [facility] Blood VENOUS BLOOD / Unknown 12/05/2021 10:40 EDT Historical Provider CHEMISTRY & BLOOD GAS ORD ERABLES Final Result [facility] * PHOSPHORUS (12/05/2021 10:40 EDT) Phosphorus, External 3.1 [facility] Blood VENOUS BLOOD / Unknown 12/05/2021 10:40 EDT us Historical Provider CHEMISTRY & BLOOD GAS ORD ERABLES Final Result [facility] * COMPREHENSIVE METABOLIC PANEL (CMP) (12/05/2021 10:40 EDT) GFR, Calculated, External 35.57 [facility] Glucose, Serum, External 82 [facility] Albumin, External 3.7 [facility] Total Alkaline Phosphatase, External 145 [facility] ALT, External 28 [facility] AST, External 26 [facility] BUN, External 27 [facility] Calculated Calcium, External [facility] Calcium, External 9.5 [facility] Chloride, External 101 [facility] CO2, External 32.8 [facility] Creatinine, External 1.6 [facility] Fasting?, External [facility] Potassium, External 3.7 [facility] Sodium, External 140 [facility] Total Protein, External 7.8 [facility] Bilirubin, Total, External 0.4 [facility] Blood VENOUS BLOOD / Unknown 12/05/2021 10:40 EDT us Historical Provider CHEMISTRY & BLOOD GAS ORD ERABLES Final Result [facility] documented in this encounter Visit Diagnoses Not on filedocumented in this encounter Care Teams Technical Recruiter Relationship Specialty Start Date End Date Jennifer Ordoñez APRN [address] [place] [phone] PCP - General 03/22/18 07/06/22 documented as of this encounter
--- OUTSIDE RECORDS SUMMARY | 2024-03-17 12:18 | XMS_ITS | Encounter Summary ---
Author Organization [facility] Address [address] [place] [address] Care Team Providers Care Aquacultural Worker Supervisor Name Role Phone Jennifer Ordoñez APRN Primary Care Provider + Lynn Saavedra MD Primary Care Provider [phone] Chary Ordoñez Primary Care Provider [phone] Encounter Details Date Type Department Care Team (Late st Contact Info) Description 12/13/2020 Lab Requisition [facility] Pathology & Laboratory Medicine - [address] [address] Outr Resulting Lab, Provider Social History Tobacco [...] 04/07/2024 9:00 EST Office Visit [facility] Endocrinology - [facility] [address] [place], [place] [phone] Vincenzo Rawls MD [address] [place] [address] [address] [place] [address] 08/22/2024 15:30 EDT Telemedicine [facility] Nephrology - [address] [address] Jose L Whitley MD [address] [place] [address], [address] 2 [place] [phone] documented as of this encounter Procedures Procedure Name Priority Date/Time Associated Diagnosis Comments ZZCOVID-19 TEST [facility] PCR Today 12/12/2020 10:15 EDT COVID-19 TESTING Routine 12/12/2020 10:1 5 EDT documented in this encounter Results * COVID-19 TEST [facility] PCR (12/12/2020 10:15 EDT) Swab ENTIRE NASOPHARYNX / Unknown 12/12/2020 10:15 EDT 12/13/2020 15:52 EDT us Provider Outr Resulting Lab MICROBIOLOGY - GENER AL ORDERABLES Final Result [facility] [address] [place] [address] * COVID-19 TESTING (12/12/2020 10:15 EDT) COVID-19 rt-PCR Result Negative Negative 12/14/2020 11:57 EDT [facility] Comment: This test has [...] clinical observations, patient history, and epidemiological information. Testing was performed using the christiana SARS-CoV-2 assay ([employer] on the [employer] System Performing Lab [facility] 12/14/2020 11:57 EDT [facility] Swab 12/12/2020 10:1 5 EDT 12/13/2020 15:52 EDT us Provider Outr Resulting Lab MICROBIOLOGY - GENER AL ORDERABLES Final Result [facility] [address] [place] [address] documented in this encounter Visit Diagnoses Not on filedocumented in this encounter Care Teams Aquacultural Worker Supervisor Relationship Specialty Start Date End Date Jennifer Ordoñez APRN [address] [place] [address] PCP - General 03/22/18 07/06/22 Lynn Saavedra MD [address] [place] [address] PCP - General 07/07/22 04/26/23 Chary Ordoñez [address] [place] [address] PCP - General Family Medicine - Primary Care 04/27/23 documented as of this encounter
--- OUTSIDE RECORDS SUMMARY | 2024-03-17 12:18 | XMS_ITS | Encounter Summary ---
Author Organization [facility] Address [address] [place] [address] Care Team Providers Care Form Setter Steel Pan Forms Name Role Phone Jennifer Ordoñez APRN Primary Care Provider + Lynn Saavedra MD Primary Care Provider Chary Ordoñez Primary Care Provider [phone] Reason for Visit * Reason Onset Date Comments Appointment Related 05/14/2021 Encounter Details Date Type Department Care Team (Late st Contact Info) Description 05/14/2021 Telephone [facility] Nephrology - [address] [phone] Jose L Whitley MD [address] [place] [address], Level 2 [place] [address] Appointment Related Social History Tobacco [...] * Telephone Encounter - Fritz Acevedo - 05/20/2021 1154 EST 2nd attempt to schedule LMOM. * Telephone Encounter - Fritz Acevedo - 05/14/2021 1141 EST LMOM with man who answered the phone letting him know we need to reschedule pt's 09/02 appt with he will relay message to her and have her call back. documented in this encounter Plan of Treatment Upcoming Encounters Date Type Department Care Team (Late st Contact Info) Description 04/07/2024 9:00 EST Office Visit [facility] Endocrinology - [facility] [address] [place], [place] [phone] Vincenzo Rawls MD 62 [facility] [address] [place] [address] 08/22/2024 15:30 EDT Telemedicine [facility] Nephrology - [facility] [address] [place], [place] [phone] Jose L Whitley MD 1 [facility] Level 2 [place] [address] documented as of this encounter Visit Diagnoses Not on filedocumented in this encounter Care Teams Form Setter Steel Pan Forms Relationship Specialty Start Date End Date Jennifer Ordoñez APRN [address] [place] [address] PCP - General 03/22/18 07/06/22 Lynn Saavedra MD [address] [place] [address] PCP - General 07/07/22 04/26/23 Chary Ordoñez [address] [place] [address] PCP - General Family Medicine - Primary Care 04/27/23 documented as of this encounter
--- OUTSIDE RECORDS SUMMARY | 2024-03-17 12:18 | XMS_ITS | Encounter Summary ---
Author Organization [facility] Address [address] [place] [address] Care Team Providers Care Seed Expert Name Role Phone Jennifer Ordoñez MAY Primary Care Provider + Reason for Visit * Reason Onset Date Comments Results 06/22/2020 Encounter Details Date Type Department Care Team (Late st Contact Info) Description 06/22/2020 Telephone [facility] Nephrology - [address] [address] Jes Kolb RN [address] [place] [address] Results Social History Tobacco Use Types Packs/Day [...] Telephone Encounter - Jes Kolb RN - 06/26/2020 0930 EDT LM for daughter Jamie EC that we have been trying to reach her mom to reschedule her missed appointment with dr whitley, and that he would like her to have lab work done. Asked her to call back * Telephone Encounter - Jes Kolb RN - 06/26/2020 0927 EDT Message Received: Yesterday Message Contents ?? 2nd attempt to reschedule apt - LMOM PSS * Telephone Encounter - Jes Kolb RN - 06/22/2020 1427 EDT Call to patient and LM that we would like to reschedule her missed appointment with dr whitley, andthe labs needed before have been faxed to [facility] * Telephone Encounter - Jes Kolb RN - 06/22/2020 1301 EDT ----- Message from Jose L Whitley MD sent at 06/22/2020 11:35 EDT ----- The patient was a No Show on 06/11/2020. Creatinine increase noted - it was 1.37 mg/dL in October 2019 and has risen to 2.07 mg/dL on 06/20/2020. Cause of ERNESTINA on CKD is unclear. PLAN: Urinalysis and repeat BMP next week - both tests have been ordered. She needs to reschedule the last missed visit. Please inform the patient. Mac documented in this encounter Plan of Treatment Upcoming Encounters Date Type Department Care Team (Late st Contact Info) Description 04/07/2024 9:00 EST Office Visit [facility] Endocrinology - [address] [phone] Vincenzo Rawls MD [address] [place] [address] [address] [place] [address] 08/22/2024 15:30 EDT Telemedicine [facility] Nephrology - [address] [address] Jose L Whitley MD 1 [facility] Level 2 [place] [address] documented as of this encounter Visit Diagnoses Not on filedocumented in this encounter Care Teams Seed Expert Relationship Specialty Start Date End Date Jennifer Ordoñez APRN [address] [place] [phone] PCP - General 03/22/18 07/06/22 documented as of this encounter
--- OUTSIDE RECORDS SUMMARY | 2024-03-17 12:18 | XMS_ITS | Encounter Summary ---
Author Organization [facility] Address [address] [place] [address] Care Team Providers Care Film Replacement Orderer Name Role Phone Jennifer Ordoñez MAY Primary Care Provider + Reason for Visit * Reason Onset Date Comments Appointment Related 08/31/2020 Encounter Details Date Type Department Care Team (Late st Contact Info) Description 08/31/2020 Telephone [facility] General Surgery - [facility] [address] [place] [address] Li Carvajal RN [address] [place] [address] Appointment Related Social History Tobacco Use Types [...] Telephone Encounter - Li Carvajal RN - 08/31/2020 8851 EDT I am calling to move up Cynthia's appointment with Dr Ruiz from 11/14/20 to 09/26/20 at 1145. Her voice mail box is full and no answer. I have left her friend Allan a message to have her return my call so I can offer this sooner visit. 09/04/20, I am unable to contact patient and no return call from her as yet. I can not move up her visit with out her confirming. I will close this encounter till her return call. documented in this encounter Plan of Treatment Upcoming Encounters Date Type Department Care Team (Late st Contact Info) Description 04/07/2024 9:00 EST Office Visit [facility] Endocrinology - [facility] [address] [place] [address] Vincenzo Rawls MD 62 [facility] [address] [place] [address] 08/22/2024 15:30 EDT Telemedicine [facility] Nephrology - S [place] [address] [place], [place] [address] Jose L Whitley MD [facility] Level [address] [place] [address] documented as of this encounter Visit Diagnoses Not on filedocumented in this encounter Care Teams Film Replacement Orderer Relationship Specialty Start Date End Date Jennifer Ordoñez APRN [address] [place] [phone] PCP - General 03/22/18 07/06/22 documented as of this encounter
--- OUTSIDE RECORDS SUMMARY | 2024-03-17 12:18 | XMS_ITS | Encounter Summary ---
Author Organization [facility] Address [address] [place] [address] Care Team Providers Care Brand Activation Manager Name Role Phone SmitaJennifer Mariam OLVERA Primary Care Provider + Reason for Visit * Laboratory Services (Routine/Next Available) - New Request Specialty Diagnoses / Procedures Referred By [facility] t Referred To Contact Diagnoses Stage 3 chronic kidney disease, unspecified whether stage 3a or 3b CKD ([facility]) Procedures BASIC METABOLIC PANEL (BMP) Jose L Whitley MD Phone: tel: fax: Referral ID Status Reason Start Date Expiration Date V isits Requested Visits Authorized [id number] New Request 2021 1 1 Encounter Details Date Type Department Care Team (Late st Contact Info) Description 09/30/2021 10:30 EDT Phlebotomy Only [facility] Laboratory Services - [address] [address] Tool Lapper Hand, [facility] Stage 3 chronic kidney disease, unspecified whether stage 3a or 3b CKD (HCC); Crohn's disease of small intestine with other complication (HCC) ([facility]); Ileostomy care (HCC-CMS) ([facility]) Social History Tobacco Use Types Packs/Day [...] Info) Description 04/07/2024 9:00 EST Office Visit [facility] Endocrinology - [address] [phone] Vincenzo Rawls MD [address] [place] [address] [address] [place] [address] 08/22/2024 15:30 EDT Telemedicine [facility] Nephrology - [address] [place] [address] [place] [address] Jose L Whitley MD 1 [facility], Level 2 [place] [phone] documented as of this encounter Procedures Procedure Name Priority Date/Time Associated Diagnosis Comments PHOSPHORUS Routine 09/30/2021 11:05 EDT Stage 3 chronic kidney disease, unspecified whether stage 3a or 3b CKD (HCC) MAGNESIUM Routine 09/30/2021 11:05 EDT Stage 3 chronic kidney disease, unspecified whether stage 3a or 3b CKD (HCC) BASIC METABOLIC PANEL (BMP) Routine 09/30/2021 11:05 EDT Stage 3 chronic kidney disease, unspecified whether stage 3a or 3b CKD (HCC) documented in this encounter Results * PHOSPHORUS (09/30/2021 11:05 EDT) Phosphorus 3.8 2.5 - 4.5 mg/dL 09/30/2021 12:09 EDT [facility] Blood VENOUS BLOOD / Unknown Venipuncture / Unknown 09/30/2021 11:05 EDT 09/30/2021 11:05 EDT Jose L Whitley MD CHEMISTRY & BLOOD GAS ORDERA BLES Final Result [facility] [address] [place] [address] * MAGNESIUM (09/30/2021 11:05 EDT) Magnesium 1.8 1.7 - 2.8 mg/dL 09/30/2021 12:09 EDT [facility] Blood VENOUS BLOOD / Unknown Venipuncture / Unknown 09/30/2021 11:05 EDT 09/30/2021 11:05 EDT Jose L Whitley MD CHEMISTRY & BLOOD GAS ORDERA BLES Final Result [facility] [address] [place] [address] * (ABNORMAL) BASIC METABOLIC PANEL (BMP) (09/30/2021 11:05 EDT) Sodium 141 136 - 145 mmol/L 09/30/2021 12:09 EDT [facility] Potassium 4.1 3.5 - 5.0 mmol/L 09/30/2021 12:09 [facility] Chloride 105 96 - 110 mmol/L 09/30/2021 12:09 [facility] CO2 Total 29 22 - 32 mmol/L 09/30/2021 12:09 [facility] Anion Gap 7 5 - 14 09/30/2021 12:09 [facility] Glucose 94 70 - 100 mg/dL 09/30/2021 12:09 [facility] Calcium 9.3 8.5 - 10.5 mg/dL 09/30/2021 12:09 [facility] BUN 23 10 - 26 mg/dL 09/30/2021 12:09 [facility] Creatinine 1.70(H) 0.52 - 1.04 mg/dL 09/30/2021 12:09 [facility] eGFR 33(L) >60 mL/min/1.73 m2 09/30/2021 12:09 [facility] Blood VENOUS BLOOD / Unknown Venipuncture / Unknown 09/30/2021 11:05 EDT 09/30/2021 11:05 EDT Jose L Whitley MD CHEMISTRY & BLOOD GAS ORDERA BLES Final Result [facility] [address] [place] [address] documented in this encounter Visit Diagnoses Diagnosis Stage 3 chronic kidney disease, unspecified whether stage 3a or 3b CKD ([facility]) Crohn's disease of small intestine with other complication ([facility]) Ileostomy care ([facility]) Attention to ileostomy documented in this encounter Care Teams Brand Activation Manager Relationship Specialty Start Date End Date Jennifer Ordoñez, TEACHER EDUCATION DIRECTOR [address] [place] [place] [address] PCP - General 03/22/18 07/06/22 documented as of this encounter
--- OUTSIDE RECORDS SUMMARY | 2024-03-17 12:18 | XMS_ITS | Encounter Summary ---
Author Organization [facility] Address [address] [place] [address] Care Team Providers Care Aluminum Boats Assembler Name Role Phone Jennifer Ordoñez MAY Primary Care Provider + Encounter Details Date Type Department Care Team (Late st Contact Info) Description 11/04/2021 Prep for Procedure [facility] Endoscopy [address] [place] [address] Brent Roa MD [facility] [address] [place] [address] Social History Tobacco Use Types [...] [facility] - [facility] [address] [place], [place] [phone] Vincenzo Rawls MD 62 [facility] [address] [place] [address] 08/22/2024 15:30 EDT Telemedicine [facility] Nephrology - [facility] 1 [place], [place] [address] Jose L Whitley MD 1 [facility], Level [address] [place] [phone] documented as of this encounter Visit Diagnoses Not on filedocumented in this encounter Care Teams Aluminum Boats Assembler Relationship Specialty Start Date End Date Jennifer Ordoñez APRN [address] [place] [phone] PCP - General 03/22/18 07/06/22 documented as of this encounter
--- OUTSIDE RECORDS SUMMARY | 2024-03-17 12:18 | XMS_ITS | Encounter Summary ---
Author Organization [facility] Address [address] [place] [address] Care Team Providers Care Dado Operator Name Role Phone Jennifer Ordoñez MAY Primary Care Provider + Reason for Visit * Reason Comments Post-OP Follow Up 1st Post op follow u p/ EUA/ currettage of nonhealing perineal wound Encounter Details Date Type Department Care Team (Late st Contact Info) Description 11/07/2020 13:00 EDT Post-op Visit [facility] General Surgery - [address] [id number] Ryan Ruiz MD [address] [place] [address], [facility] [address] [place] [address] Postop check (Primary Dx) Social [...] 8:12 EDT documented as of this encounter Last Filed Vital Signs Vital Sign Reading Time Taken Comments Blood Pressure 108/69 11/07/2020 1238 EDT Pulse 78 11/07/2020 1238 EDT Temperature - - Respiratory Rate - - Oxygen Saturation - - Inhaled Oxygen Concentration - - Weight 42.9 kg (94 lb 9.6 oz) 11/07/2020 1238 ED T Height 149.9 cm (4' 11.02) 11/07/2020 1238 EDT Body Mass Index 19.1 11/07/2020 1238 EDT documented in this encounter Functional Status [...] documented in this encounter Progress Notes * Nereyda Aragon MD - 11/07/2020 1300 EDT Surgery Post Op Visit Ms. Collins is a 65yo F, presents to clinic after EUA and currettage of nonhealing perineal wound and seton placement. She is recovering well but reports some nuisance from the seton. She reports some drainage from thewound, sometimes increasing with phantom cramps. Denies any fevers/chills, worsening pain or discharge from the site. On exam, patient was alert, cooperative, in no acute distress. The seton is in place and intact in the perineal wound, tracking through the posterior vaginal wall. No purulent or bloody drainage noted. Assessment and plan: Ms Collins is recovering well after EUA and seton placement. We will leave the seton in place with a follow-up appointment in 6 months. NEREYDA ARAGON MD 11/07/2020 13:32 General Surgery Staff Note Attestation statement: I saw and examined the patient. I agree with the resident's/fellow's findings and plans as documented. Any additions/exceptions are noted below. She is tolerating the seton and I think this is probably the simplest if not the most perfect solution. We will see her back in 6 months. Ryan Ruiz MD 15:49 11/08/2020 documented in this encounter Plan of Treatment Upcoming Encounters Date Type Department Care Team (Late st Contact Info) Description 04/07/2024 9:00 EST Office Visit [facility] Endocrinology - [address] [address] Vincenzo Rawls MD [address] [place] [address] [address] [place] [address] 08/22/2024 15:30 EDT Telemedicine [facility] Nephrology - [address] [address] Jose L Whitley MD [address] [place], [place] [address], [address] [place] [phone] documented as of this encounter Visit Diagnoses Diagnosis Postop check- Primary Follow-up examination, following unspecified surgery documented in this encounter Care Teams Dado Operator Relationship Specialty Start Date End Date Jennifer Ordoñez, RN HEMODIALYSIS [address] [place] [address] PCP - General 03/22/18 07/06/22 documented as of this encounter
--- OUTSIDE RECORDS SUMMARY | 2024-03-17 12:18 | XMS_ITS | Encounter Summary ---
Author Organization [facility] Address [address] [place] [address] Care Team Providers Care Back End Architect Name Role Phone Jennifer Ordoñez MAY Primary Care Provider + Encounter Details Date Type Department Care Team (Late st Contact Info) Description 06/22/2020 Abstract [facility] Nephrology - [address] [address] Jose L Whitley MD 1 [facility], [address] [place] [address] Social History Tobacco Use Types [...] 04/07/2024 9:00 EST Office Visit [facility] Endocrinology - [address] [phone] Vincenzo Rawls MD 62 [facility] [address] [place] [phone] 08/22/2024 15:30 EDT Telemedicine [facility] Nephrology - [address] [address] Jose L Whitley MD 1 [facility], [address] [place] [phone] documented as of this encounter Procedures Procedure Name Priority Date/Time Associated Diagnosis Comments MAGNESIUM Routine 06/20/2020 9:08 EDT BASIC METABOLIC PANEL (BMP) Routine 06/20/2020 9:08 EDT documented in this encounter Results * MAGNESIUM (06/20/2020 9:08 EDT) Magnesium, External 2.0 [facility] Blood VENOUS BLOOD / Unknown 06/20/2020 9:08 EDT us Historical Provider CHEMISTRY & BLOOD GAS ORD ERABLES Final Result Performing Organization Address City/[facility]/ZIP Co de Phone Number [facility] * BASIC METABOLIC PANEL (BMP) (06/20/2020 9:08 EDT) GFR, Calculated, External 24 [facility] Glucose, Serum, External 128 [facility] Calculated Calcium, External [facility] BUN, External 29 [facility] Calcium, External 9.5 [facility] Chloride, External 93 [facility] CO2, External 35 [facility] Creatinine, External 2.07 [facility] Fasting?, External [facility] Potassium, External 3.4 [facility] Sodium, External 136 [facility] Blood VENOUS BLOOD / Unknown 06/20/2020 9:08 EDT Historical Provider CHEMISTRY & BLOOD GAS ORD ERABLES Final Result Performing Organization Address City/[facility] Co de Phone Number [facility] documented in this encounter Visit Diagnoses Not on filedocumented in this encounter Care Teams Back End Architect Relationship Specialty Start Date End Date Jennifer Ordoñez, COMMUTER PILOT [address] [place] [address] PCP - General 03/22/18 07/06/22 documented as of this encounter
--- OUTSIDE RECORDS SUMMARY | 2024-03-17 12:18 | XMS_ITS | Encounter Summary ---
Author Organization [facility] Address [address] [place] [address] Care Team Providers Care Marine Mammal Trainer Name Role Phone Jennifer Ordoñez MAY Primary Care Provider + Encounter Details Date Type Department Care Team (Late st Contact Info) Description 09/20/2020 Abstract [facility] Nephrology - [address] [phone] Jose L Whitley MD 1 [facility], Level [address] [place] [address] Hypomagnesemia; Crohn's colitis, other complication ([facility]); Stage 3a chronic kidney disease Social History Tobacco Use Types Packs/Day Years [...] Info) Description 04/07/2024 9:00 EST Office Visit [facility] Endocrinology - [facility] [address] [place] [address] Vincenzo Rawls MD [address] [place] [address] [address] [place] [address] 08/22/2024 15:30 EDT Telemedicine [facility] Nephrology - [address] [phone] Jose L Whitley MD [address] [place] [address], [address] [place] [phone] documented as of this encounter Procedures Procedure Name Priority Date/Time Associated Diagnosis Comments PROTEIN/CREATININE RATIO, URINE Routine 09/14/2020 10:00 EDT BASIC METABOLIC PANEL (BMP) Routine 09/14/2020 10:00 EDT Hypomagnesemia Crohn's colitis, other complication ([facility]) Stage 3a chronic kidney disease documented in this encounter Results * PROTEIN/CREATININE RATIO, URINE (09/14/2020 10:00 EDT) Protein, Total, Ur Random, External 35.2 [facility] Creatinine, Ur Random, External 160.07 [facility] UPRO mg/mg Cr, Ur External 0.21 [facility] Urine URINE SPECIMEN COLLECTION, CLEAN CATCH / Unknown 09/14/2020 10:00 EDT us Nikki Provider URINALYSIS ORDERABLES Fin al Result [facility] * BASIC METABOLIC PANEL (BMP) (09/14/2020 10:00 EDT) GFR, Calculated, External 37.98 [facility] Glucose, Serum, External 88 [facility] Calculated Calcium, External [facility] BUN, External 15 [facility] Calcium, External 9.0 [facility] Chloride, External 105 [facility] CO2, External 30.6 [facility] Creatinine, External 1.4 [facility] Fasting?, External [facility] Potassium, External 5.5 [facility] Sodium, External 142 [facility] Blood VENOUS BLOOD / Unknown 09/14/2020 10:00 EDT us Jose L Whitley MD CHEMISTRY & BLOOD GAS ORDERA BLES Final Result [facility] documented in this encounter Visit Diagnoses Diagnosis Hypomagnesemia Disorders of magnesium metabolism Crohn's colitis, other complication ([facility]) Stage 3a chronic kidney disease ([facility]-CMS) documented in this encounter Care Teams Marine Mammal Trainer Relationship Specialty Start Date End Date Jennifer Ordoñez, INVENTORY AUDITOR [address] [place] [phone] PCP - General 03/22/18 07/06/22 documented as of this encounter
--- OUTSIDE RECORDS SUMMARY | 2024-03-17 12:18 | XMS_ITS | Encounter Summary ---
Author Organization [facility] Address [address] [place] [address] Care Team Providers Care Hay Chopper Name Role Phone Jennifer Ordoñez MAY Primary Care Provider + Reason for Visit * Reason Onset Date Comments Follow-up 10/01/2021 Encounter Details Date Type Department Care Team (Late st Contact Info) Description 10/01/2021 Telephone [facility] Nephrology - [address] [address] Jose L Whitley MD 1 [facility], Level [address] [place] [address] Follow-up Social History Tobacco Use [...] encounter Miscellaneous Notes * Telephone Encounter - Jaimee Maldonado - 10/01/2021 1313 EDT LMOM detailed relaying Dr. Whitley's review of labs and patient instructions. Advised pt to call clinic with any questions or concerns. * Telephone Encounter - Jose L Whitley MD - 10/01/2021 1303 EDT History of ERNESTINA on CKD in a??then??64-yo female with PMH??for??CKD, Crohn's Disease, Metabolic acidosis, nephrocalcinosis and RTA with hypomagnesemia. Creatinine was 1.37 mg/dL in October 2019, was as high as 2.07 mg/dL on 06/20/20, and had decreased to 1.82 mg/dL (eGFR=29) on 07/16/2020 and the latest available creatinine was 1.4 on 09/14/20. Missed appointment on 09/23/21. New labs one year later from 09/30/21: Na 141 K 4.1 Bicarbonate 29 Creatinine - higher at 1.70 (eGFR=33) Phos 3.8 Magnesium 1.8 She will be encouraged to increase fluid intake and to repaat a BMP in 1-2 weeks - this has pauline ordered. canvass manager is to please inform the patient of new labs ordered. documented in this encounter Plan of Treatment Upcoming Encounters Date Type Department Care Team (Late st Contact Info) Description 04/07/2024 9:00 EST Office Visit [facility] Endocrinology - [address] [phone] Vincenzo Rawls MD 62 [facility] [address] [place] [phone] 08/22/2024 15:30 EDT Telemedicine [facility] Nephrology - [address] [address] Jose L Whitley MD 1 [facility], [address] [place] [phone] documented as of this encounter Visit Diagnoses Diagnosis Acute renal failure, unspecified acute renal failure type (HCC-CMS)- Primary Crohn's disease of colon with other complication ([facility]CC-CMS) documented in this encounter Care Teams Hay Chopper Relationship Specialty Start Date End Date Jennifer Ordoñez APRN [address] [place] [phone] PCP - General 03/22/18 07/06/22 documented as of this encounter
--- OUTSIDE RECORDS SUMMARY | 2024-03-17 12:18 | XMS_ITS | Encounter Summary ---
Author Organization [facility] Address [address] [place] [address] Care Team Providers Care Paint Tinter Name Role Phone Jennifer Ordoñez MAY Primary Care Provider + Reason for Visit * Reason Comments Follow-up perineal wound Encounter Details Date Type Department Care Team (Late st Contact Info) Description 2021 9:30 EDT Office Visit [facility] General Surgery - [address] [address] Ryan Ruiz MD 111 [facility], [address] [place] [address] Perineal fistula (Primary Dx); Generalized abdominal pain Social History Tobacco Use Types Packs/Day Years [...] Sign Reading Time Taken Comments Blood Pressure 140/103 09/27/2021926 EDT Pulse 98 09/27/2021926 EDT Temperature - - Respiratory Rate - - Oxygen Saturation - - Inhaled Oxygen Concentration - - Weight 44 kg (97 lb) 09/27/2021926 EDT Height 149.9 cm (4' 11.02) 09/27/2021926 EDT Body Mass Index 19.58 09/27/2021926 EDT documented in this encounter Functional Status [...] Progress Notes * Ryan Ruiz MD - 09/27/2021929 EDT Colorectal surgery Office Note HPI: Zaira is here in follow-up. A year ago he went to the operating room and I curetted her chronic perineal wound and found that it communicated to the vagina and placed a draining seton. She was seen in the office in October of last year and was doing well. The plan was for 6-month follow-up. Today she returns and reports ongoing drainage from her perianal wound, she reports that the drainage is variable depending on her activity, and it's becoming more bloody rather than clear. Overall, she thinks that it has been stable over the last few months. She denies any perianal pain, denies any fever or chills, she had no issues with her ostomy management. She also endorses mid epigastric pain that happens daily, doesn't recall if it gets worse with any aggravating factor, unrelated to eating, usually self resolves. She underwent a RUQ US that showed gall bladder sludge, otherwise CBD normal size. She's wondering if she can have surgery to remove her gall bladder. On Exam: General: Alert, NAD Chest: non labored breathing CVS: RRR Abdomen: Soft, non tender, non distended, well healed scar Perianal exam: Well healed perineal wound, seton in place intact from perineal midline post wound to the vagina with mild kimmie appearing drainage, no fluctuance or cellulitic changes Assessment and plan: 66 Y F with PMH of Crohn's disease here for follow up of chronic perineal wound that it appears to be healing well, has a draining seton in place with mild drainage noted on today's visit. Patient was counseled about keeping the seton stacie avoid any wound complications. In regards to her abdominal pain, what she describes doesn't appear to be biliary colic in nature, patient is planning to see a interior design coordinator soon to manage her Crohn's disease and it's reasonable to have follow up there andcontinuing to monitor. - Plan to follow up in one year for perineal wound Patient seen and examined with Dr. Joseph Flores, [facility] General Surgery Staff Note Attestation statement: I saw and examined the patient. I agree with the resident's/fellow's findings and plans as documented. Any additions/exceptions are noted below. Regarding her perineal wound. I do not think I can make things any better than they already are andshe is avoiding having abscesses. Regarding her abdominal pain, this is chronic. Happens every day. Not related to eating and drinking. She has had multiple abdominal surgeries including a G-tube and therefore likely has scarring in the upper abdomen. A few years ago she had an elevated alk phos (reportedly, not in our system) and came here for a ERCP which did not demonstrate any filling defects or problems. Therefore I think the mild elevation in her alkaline phosphatase recently is likely chronic in her common bile duct is stable in size. I think it is quite possible her pain is not related to her gallbladder and surgery to remove it would be challenging given her multiple operations in the past. I think the risk of complications as well as the possibility that it has no impact on her chronic pain outweigh the benefitsof potentially decreasing her pain. Ryan Ruiz MD documented in this encounter Plan of Treatment Upcoming Encounters Date Type Department Care Team (Late st Contact Info) Description 04/07/2024 9:00 EST Office Visit [facility] Endocrinology - [facility] [address] [place], [place] [phone] Vincenzo Rawls MD 62 [facility] [address] [place] [address] 08/22/2024 15:30 EDT Telemedicine [facility] Nephrology - [facility] [address] [place], [place] [phone] Jose L Whitley MD 1 [facility], [address] [place] [phone] documented as of this encounter Visit Diagnoses Diagnosis Perineal fistula- Primary Urethral fistula Generalized abdominal pain Abdominal pain, generalized documented in this encounter Historical Medications * This list may reflect changes made after this encounter. calcium carbonate/vitamin D3 (VITAMIN D-3 ORAL) Take by mouth. 04/29/2023 added in this encounter Care Teams Paint Tinter Relationship Specialty Start Date End Date Jennifer Ordoñez APRN [address] [place] [address] PCP - General 03/22/18 07/06/22 documented as of this encounter
--- OUTSIDE RECORDS SUMMARY | 2024-03-17 12:18 | XMS_ITS | Encounter Summary ---
Author Organization [facility] Address [address] [place] [address] Care Team Providers Care Solar Project Engineer Name Role Phone Jennifer Ordoñez APRN Primary Care Provider + Lynn Saavedra MD Primary Care Provider Chary Ordoñez Primary Care Provider [phone] Reason for Visit * Reason Onset Date Comments Appointment Related 02/12/2021 Encounter Details Date Type Department Care Team (Late st Contact Info) Description 02/12/2021 Telephone [facility] Nephrology - [address] [phone] Jose L Whitley MD [address] [place], [place] [address], [address] [place] [address] Appointment Related Social History Tobacco [...] * Telephone Encounter - Fritz Acevedo - 02/19/2021 1227 EST 3rd attempt to reschedule LMOM. Sent letter. * Telephone Encounter - Fritz Acevedo - 02/13/2021 1236 EST 2nd attempt to reschedule LMOM. * Telephone Encounter - Fritz Acevedo - 02/12/2021 1631 EST LMOM letting pt know that we need to reschedule her 03/[address] Whitley please reschedule from bumped appt and schedule on a Thursday or telemedicine. documented in this encounter Plan of Treatment Upcoming Encounters Date Type Department Care Team (Late st Contact Info) Description 04/07/2024 9:00 EST Office Visit [facility] Endocrinology - [address] [address] Vincenzo Rawls MD 62 [facility] [address] [place] [phone] 08/22/2024 15:30 EDT Telemedicine [facility] Nephrology - [address] [phone] Jose L Whitley MD [address] [place], [place] [address], [address] [place] [address] documented as of this encounter Visit Diagnoses Not on filedocumented in this encounter Care Teams Solar Project Engineer Relationship Specialty Start Date End Date Jennifer Ordoñez APRN [address] [place] [address] PCP - General 03/22/18 07/06/22 Lynn Saavedra MD [address] [place] [address] PCP - General 07/07/22 04/26/23 Chary Ordoñez [address] [place] [address] PCP - General Family Medicine - Primary Care 04/27/23 documented as of this encounter
--- OUTSIDE RECORDS SUMMARY | 2024-03-17 12:18 | XMS_ITS | Encounter Summary ---
Author Organization [facility] Address [address] [place] [address] Care Team Providers Care Outreach Analyst Name Role Phone Jennifer Ordoñez MAY Primary Care Provider + Reason for Visit * Reason Comments Chronic Kidney Disease Patient last seen in August 2020 for follow up on ERNESTINA on CKD in a then 64-yo female with PMH for CKD, Crohn's Disease, Metabolic acidosis, nephrocalcinosis and RTA with hypomagnesemia. Creatinine was 1.37 mg/dL in October 2019, was as high as 2.07 mg/dL on 06/20/20, and had decreased to 1.82 mg/dL (eGFR=29) on 07/16/2020 and the latest available creatinine was 1.4 on 09/14/20. Missed appointment on 09/23/21. BMP LEVAR and then standing order. Acute Renal Failure Encounter Details Date Type Department Care Team (Late st Contact Info) Description 09/30/2021 9:50 EDT Office Visit [facility] Nephrology - [address] [id number] Jose L Whitley MD 1 [facility], Level 2 [place] [phone] Crohn's disease of small intestine with other complication (HCC) (HCC-CMS) (Primary Dx); Stage 3 chronic kidney disease, unspecified whether stage 3a or 3b CKD (HCC); Ileostomy care ([facility]) (HCC) Social History Tobacco Use Types Packs/Day Years [...] Sign Reading Time Taken Comments Blood Pressure 108/82 09/30/2021 0951 EDT Pulse 93 09/30/2021 0951 EDT Temperature - - Respiratory Rate - - Oxygen Saturation 100% 09/30/2021 0951 EDT Inhaled Oxygen Concentration - - Weight 43.1 kg (95 lb) 09/30/2021 0951 EDT Height 149.9 cm (4' 11.02) 09/30/2021 0951 EDT Body Mass Index 19.17 09/30/2021 0951 EDT documented in this encounter Functional Status [...] this encounter Patient Instructions * Patient Instructions* oJse L Whitley MD - 09/30/2021 9:50 EDT Labs today here at [facility] then every 2 months from home. RTC in 6 months. documented in this encounter Progress Notes * Jose L Whitley MD - 09/30/2021 0950 EDT NEPHROLOGY OFFICE FOLLOW UP VISIT NOTE SUBJECTIVE Patient last seen in August 2020 for follow up on ERNESTINA on CKD in a then 64-yo female with PMH for CKD,Crohn's Disease, Metabolic acidosis, nephrocalcinosis and RTA with hypomagnesemia. Creatinine was 1.37 mg/dL in October 2019, was as high as 2.07 mg/dL on 06/20/20, and had decreased to 1.82 mg/dL (eGFR=29) on 07/16/2020 and the latest available creatinine was 1.4 on 09/14/20. Missed appointment on 09/23/21. 09/29/2021 Chief Complaint Patient presents with ??? Chronic Kidney Disease Patient last seen in August 2020 for follow up on ERNESTINA on CKD in a then 64-yo female with PMH for CKD,Crohn's Disease, Metabolic acidosis, nephrocalcinosis and RTA with hypomagnesemia. Creatinine was 1.37 mg/dL in October 2019, was as high as 2.07 mg/dL on 06/20/20, and had decreased to 1.82 mg/dL (eGFR=29) on 07/16/2020 and the latest available creatinine was 1.4 on 09/14/20. Missed appointment on 09/23/21. BMP LEVAR and then standing order. ??? Acute Renal Failure HPI As above. She described some back ache on the right. She just turned 66 three days ago. Weight stable. No newleg swelling. She is looking for a new PCP - she is very pushy. She was reminded that the PCP wasonly trying to help out. Patient Active Problem List Diagnosis ??? Chronic kidney disease, stage III (moderate) (HCC) ??? Tachycardia ??? Hematuria ??? Diarrhea with dehydration ??? Nephrocalcinosis ??? Renal tubular acidosis ??? Nephrolithiasis ??? Crohn's disease (HCC-CMS) (HCC) ??? Fibromyalgia ??? Disruption of perineal wound [...] anus ??? Renal tubular acidosis dx at [facility], after bowel surgery ??? Seizures (HCC-CMS) just one from chantex ??? Tachycardia rx with b-charu, asymptomatic Past Surgical History: Procedure Laterality Date ??? COLON SURGERY ??? HYSTERECTOMY ??? RECTAL SURGERY anus removal 03/2018, debridement 10/2018 ??? SMALL INTESTINE SURGERY ??? TOTAL COLECTOMY Current Outpatient Medications Medication ??? acetaminophen (TYLENOL) 325 mg tablet ??? calcium carbonate/vitamin D3 (VITAMIN [...] auscultation bilaterally Heart: no rub Abdomen: Not distenede. Ostomy bag in situ. Mental Status: awake and alert; oriented to person, place, and time Extremities: No edema; no calf tenderness. Jose L Whitley MD 09/29/2021 17:11 Lab Results Component Value Date K 4.7 12/13/2018 K 3.4 (L) 04/16/2018 NA 139 12/13/2018 NA 129 (L) 04/16/2018 CL 105 12/13/2018 CL 94 (L) 04/16/2018 CO2 23 12/13/2018 CO2 27 04/16/2018 TBIL <0.5 11/24/2007 AST 37 11/24/2007 ALT 20 11/24/2007 LABALBU 5.0 (H) 11/24/2007 TP 8.4 (H) 11/24/2007 CREATININE 1.38 (H) 12/13/2018 CREATININE 1.76 (H) 04/16/2018 CALCGFR 41 (L) 12/13/2018 CALCGFR 31 (L) 04/16/2018 CALCIUM 9.7 12/13/2018 CALCIUM 9.3 11/24/2007 CALCCA 9.2 12/13/2018 CALCCA 8.7 11/24/2007 SERGLU 87 12/13/2018 SERGLU 90 11/24/2007 FASTFASTN2 No 12/13/2018 Lab Results Component Value [...] UROBILINOGEN, NITRITE, LEUKESTER ASSESSMENT & PLAN CKD - Patient last seen in August 2020 for follow up on ERNESTINA on CKD in a then 64-yo female with PMH for CKD, Crohn's Disease, Metabolic acidosis, nephrocalcinosis and RTA with hypomagnesemia. Creatininewas 1.37 mg/dL in October 2019, was as high as 2.07 mg/dL on 06/20/20, and had decreased to 1.82 mg/dL(eGFR=29) on 07/16/2020 and the latest available creatinine was 1.4 on 09/14/20. Missed appointment on 09/23/21. BMP LEVAR and then standing order. BMP every 2 months. RTC in 6 months. Back pain - This was explained to the patient to be likely musculoskeletal. On Na bicarbonate high dose. Bicarbonate was 30.6 in September 2020. S/p Ileostomy - She will follow up with GI regarding questions about the gall bladder and epigastric pain. documented in this encounter Plan of Treatment Upcoming Encounters Date Type Department Care Team (Late st Contact Info) Description 04/07/2024 9:00 EST Office Visit [facility] Endocrinology - [facility] [address] [place], [place] [phone] Vincenzo Rawls MD 62 [facility] [address] [place] [phone] 08/22/2024 15:30 EDT Telemedicine [facility] Nephrology - [facility] [address] [place], [place] [id number] Jose L Whitley MD 1 [facility], Level [address] [place] [phone] documented as of this encounter Visit Diagnoses Diagnosis Crohn's disease of small intestine with other complication ([facility])- Primary Stage 3 chronic kidney disease, unspecified whether stage 3a or 3b CKD ([facility]) Ileostomy care ([facility]) Attention to ileostomy documented in this encounter Orders Lab Orders Without Results Count Last Ordered D ate First Ordered Date BASIC METABOLIC PANEL (BMP) 09/30/2021 MAGNESIUM 1 09/30/2021 PHOSPHORUS 1 09/30/2021 documented in this encounter Care Teams Outreach Analyst Relationship Specialty Start Date End Date Jennifer Ordoñez, MINE UTILITY OPERATOR [address] [place] [phone] PCP - General 03/22/18 07/06/22 documented as of this encounter
--- OUTSIDE RECORDS SUMMARY | 2024-03-17 12:18 | XMS_ITS | Encounter Summary ---
Author Organization [facility] Address [address] [place] [address] Care Team Providers Care Social Services Director Name Role Phone Jennifer Ordoñez MAY Primary Care Provider + Reason for Visit * Reason Onset Date Comments Appointment Related 03/30/2020 Encounter Details Date Type Department Care Team (Late st Contact Info) Description 03/30/2020 Telephone [facility] - [address] [address] Jose L Whitley MD 1 [facility], Level [address] [place] [phone] Appointment Related Social History Tobacco [...] * Telephone Encounter - Pooja Garcia - 03/30/2020 1032 EST [facility] WILL GIVE PT APPT DATE/TIME SHE IS THERE WITH THEM NOW documented in this encounter Plan of Treatment Upcoming Encounters Date Type Department Care Team (Late st Contact Info) Description 04/07/2024 9:00 EST [facility] - [facility] [address] [place], [place] [phone] Vincenzo Rawls MD 62 [facility] [address] [place] [phone] 08/22/2024 15:30 EDT Telemedicine [facility] Nephrology - [address] [address] Jose L Whitley MD [address] [place] [address] Rehab, [address] [place] [phone] documented as of this encounter Visit Diagnoses Not on filedocumented in this encounter Care Teams Social Services Director Relationship Specialty Start Date End Date Jennifer Ordoñez APRN [address] [place] [phone] PCP - General 03/22/18 07/06/22 documented as of this encounter
--- OUTSIDE RECORDS SUMMARY | 2024-03-17 12:18 | XMS_ITS | Encounter Summary ---
Author Organization [facility] Address [address] [place] [address] Care Team Providers Care Metal Checker Name Role Phone Jennifer Ordoñez MAY Primary Care Provider + Reason for Visit * Auth/Cert Specialty Diagnoses / Procedures Referred By Savannah ware Referred To Contact Diagnoses Disruption of perineal wound Procedures OR SURG DIAGNOSTIC EXAM, ANORECTAL EXAM UNDER ANESTHESIA, ANORECTAL, curretage of a non-healing perineal wound Referral ID Status Reason Start Date Expiration Date Visits Re quested Visits Authorized [id number] 1 1 Encounter Details Date Type Department Care Team (Late st Contact Info) Description 10/11/2020 8:16 EDT - 10/11/2020 12:28 EDT Hospital Encounter [facility] OR [address] [place] [id number] Ryan Ruiz MD [address] [place] [address], [address] [place] [phone] Discharge Disposition: Home or Self Care Social [...] Sign Reading Time Taken Comments Blood Pressure 140/83 10/11/2020 1200 EDT Pulse - - Temperature 36.1 ??C (97 ??F) 10/11/2020 1200 EDT Respiratory Rate 20 10/11/2020 1200 EDT Oxygen Saturation 100% 10/11/2020 1200 EDT Inhaled Oxygen Concentration - - Weight 41 kg (90 lb 6.2 oz) 10/11/2020 0847 EDT Height 149.9 cm (4' 11) 10/11/2020 0847 EDT Body Mass Index 18.26 10/11/2020 0847 EDT documented in this encounter Functional Status [...] this encounter Medications at Time of Discharge cyanocobalamin (VITAMIN B12) 1,000 mcg/mL injection Inject 1 mL into the muscle every 28 days. DULoxetine (CYMBALTA) 30 mg delayed release capsule Take 1 Capsule by mouth daily. estradioL (ESTRACE) 0.5 mg tablet Take 0.5 Tablets by mouth daily. 1/2 tab daily FOLIC ACID ORAL Take 1 Tab by mouth daily. ONDANSETRON HCL ORAL Take [...] every three hours. 1 Tab 10/27/2018 4 cyclobenzaprine (FLEXERIL) 10 mg tablet Take 5 mg by mouth 3 times daily. 2 ergocalciferol (DRISDOL; VITAMIN D2) 50,000 unit capsule Take 50,000 Units by mouth every 7 days. 4 magnesium oxide (MAG-OX) 400 mg tablet Take 800 mg by mouth daily. 09/01/2013 2 metoprolol (LOPRESSOR) 25 mg tablet Take 12.5 mg by mouth daily. 2 traMADol (ULTRAM) 50 mg tablet Take 50 mg by mouth 2 times daily. 4 documented as of this encounter Discharge Disposition Disposition Code Departure Means Destination Home or Self Jail documented in this encounter Progress Notes * Nicolasa Mosher - 10/11/2020 0978 EDT Pt refused to get up and void Nicolasa Mosher APRN CNM * Xuan Vegas RN - 10/10/2020 0920 EDT COVID 19 Screening Perioperative at time of PAT Please document by exception (only check those that apply). Have you had any of the following symptoms recently?denies Yes Chronic ? Cough Shortness of breath or difficulty breathing Fever Chills Fatigue Muscle or body aches Severe Headache New loss of taste or smell Sore throat Congestion or runny nose Rash Nausea, vomiting, or diarrhea (rare in adults. More common in children) Please elaborate if yes: If a chronic symptom is reported use your judgement if an anesthesia review is needed. Have you been in close contact with someone who has been diagnosed with Covid 19?denies (close contact, within 6 feet of any person known to have Coronavirus in the past 14 days) Vaccination Status: ___ Pt states fully vaccinated, ___ Verified in chart ___ Pt states unvaccinated -Do not instruct patient regarding COVID testing, let [facility] coordinate this -Communicate status on yellow form for DOS If patient develops any of these symptoms between now and their surgery date instruct them to call us back at [phone] to report symptoms Visitor Policy: - Inpatients are now permitted two healthy support people at a time, including children. One personis permitted to remain overnight. - Pediatric Inpatients may have two healthy parents/guardians at the bedside and siblings are permitted as needed. One may stay overnight. - Inpatient Psychiatry patients may have two healthy, fully vaccinated support people at a time. Due to the environment on these units, vaccination is a requirement for all visitors. - Two healthy support people are permitted to escort a patient undergoing any procedure requiring sedation or general anesthesia. - One healthy support person may accompany patients to outpatient appointments. Two healthy parents/guardians are permitted for pediatric patients. documented in this encounter H&P Notes * Ryan Ruiz MD - 10/11/2020 0839 EDT The preoperative history and physical which was performed within 30 days of this procedure has been reviewed and the clinically appropriate elements of the physical examination have been repeated. There are no changes to the documented history and physical or if so such changes are documented below Ryan Ruiz MD 10/11/2020 8:39 Source Note - Ryan Ruiz MD - 09/26/2020 14:30 EDT Subjective: Patient ID: Zaira Collins is [...] stones ??? Renal tubular acidosis dx at [facility], after bowel surgery ??? Tachycardia rx with [...] OR Surgeon - Ryan Ruiz MD - 10/11/2020 0816 EDT OPERATIVE REPORT SERVICE DATE: 10/11/2020 PREOPERATIVE DIAGNOSIS: Nonhealing perineal wound. 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 PROCEDURE PERFORMED: Placement of a draining Seton. SURGEON: Ryan Ruiz MD FACS FASCRS ASSISTANT TECHNICIAN: Ree Padron MS ANESTHESIA: Local with IV sedation. INDICATIONS: Zaira is a 65-year-old woman with a long history of Crohn's and a remote history of proctocolectomy with end ileostomy. In the past, I have excised her out of circuit anus. She then developed a nonhealing wound. She was lost to follow up and came back recently with ongoing drainage from an anterior portion of the perineal wound. We talked about a trip to the operating room for an exam under anesthesia and curettage of what I expected to be a small nonhealing anterior tract. FINDINGS: She did indeed have a small defect and when hydrogen peroxide was injected into this it came out of a right anterior fistula on the skin as well as through a fistula opening at the vaginal introitus just to the left of midline. PROCEDURE: The patient was brought to the operating room and placed in supine position on the OR table. SCDs were applied. After completion of surgical safety checklist with her participation. She was given IV sedation by the anesthesiologist. She was then placed in lithotomy position with careful padding of the extremities. The perineum was prepped and draped in the usual sterile fashion. A final pause was held, in the correct patient and procedure to be performed, confirmed that it was present. Bilateral pudendal nerve blocks were performed with a buffered solution of long and short-acting local anesthetic. Digital exam of the back wall of the vagina revealed it to be supple and without any evidence of fibrosis. However, there were some old apparently healed external fistulas. The perineal wound was predominantly healed with the exception of a small anterior portion. This was gently probed and did notappear to track to the back wall of the vagina. Hydrogen peroxide was injected into the small open portion of the wound and immediately came out of an old fistula opening just to the left of midline and the vaginal introitus and then also on the skin on the right anterior area of the perineal body.Both of these areas were then subsequently probed and even with a small lacrimal duct probe. I could not get the skin fistula to track to the old wound or to the vaginal opening. The vaginal opening;however, I was able to track with the fistula probe down to the old perineal wound. I also got the sense that there was a chronic cavity in the region of the perineal body. I did not feel that opening things up would be appropriate without obtaining further consent after explaining my findings and t herefore, I placed a Seton by affixing a vessel loop to the probe and dragging it through the fistula and then affixing it to itself with silk sutures. Gauze and mesh panties were used for dressing. I was present and scrubbed for the entire case. She tolerated the procedure well. Unless otherwise noted, there were no complications, no blood loss, no cultures obtained, no specimens removed, and no drains retained. Ryan Ruiz MD FACS FASCRS / LM Confirmation: [id number] Dictation ID: [id number] cc: Jennifer Ordoñez APRN, [address] [place] [address] * Preprocedure Instructions - Xuan Vegas RN - 10/10/2020 0907 EDT Zaira Collins has been instructed as follows regarding medication administration for the day of the scheduled procedure. Date of Surgery: 10/11/20 Instructions for Taking Medications Day of Surgery Medication Sig Last Dose Hold DOS Take DOS acetaminophen (TYLENOL) 325 mg tablet Take 3 Tabs by mouth every 6 hours. Please alternate taking with ibuprofen so you are taking one or the other every three hours. Patient not taking: Reported on 09/26/2020 yes cyanocobalamin (VITAMIN B-12) 1,000 mcg/mL injection Inject 1,000 mcg into the muscle every 28 days. hold cyclobenzaprine (FLEXERIL) 10 mg tablet Take 5 mg by mouth 3 times daily. yes DULoxetine (CYMBALTA) 60 mg capsule Take 30 mg by mouth daily. yes ergocalciferol (DRISDOL; VITAMIN D2) 50,000 unit capsule Take 50,000 Units by mouth every 7 days. ESTRADIOL ORAL Take 1 tablet by mouth daily. yes FOLIC ACID ORAL Take 1 Tab by mouth daily. hold magnesium oxide (MAG-OX) 400 mg tablet Take 800 mg by mouth 2 times daily. hold metoprolol (LOPRESSOR) 25 mg tablet Take 25 mg by mouth daily. yes ONDANSETRON HCL ORAL Take 4 mg by mouth 3 times daily. yes potassium chloride (MICRO-K) 10 mEq capsule Take 20 mEq by mouth daily. hold sodium bicarbonate 650 mg tablet Take 2,600 mg by mouth 3 times daily. yes traMADol (ULTRAM) 50 mg tablet Take 50 mg by mouth 2 times daily. yes Pt verbalizes good understanding and no questions. documented in this encounter Plan of Treatment Upcoming Encounters Date Type Department Care Team (Late st Contact Info) Description 04/07/2024 9:00 EST Office Visit [facility] Endocrinology - [address] [phone] Vincenzo Rawls MD [address] [facility] [address] [place] [phone] 08/22/2024 15:30 EDT Telemedicine [facility] Nephrology - [address] [address] Jose L Whitley MD [address] [place], [place] [id number], [address] [place] [phone] documented as of this encounter Procedures Procedure Name Priority Date/Time Associated Diagnosis Comments EXAM UNDER ANESTHESIA, ANORECTAL 10/11/2020 9:43 EDT Disruption of perineal wound documented in this encounter Visit Diagnoses Diagnosis Disruption of perineal wound- Primary Disruption of perineal wound, unspecified as to episode of care in documented in this encounter Admitting Diagnoses Diagnosis Disruption of perineal wound Disruption of perineal wound, unspecified as to episode of care in documented in this encounter Administered Medications Inactive Administered Medications - up to 3 most recent administrations Medication Order MAR Action Action Date Dose Rate Site acetaminophen (TYLENOL) tablet 1,000 mg 1,000 mg, oral, PRE-OP ONCE, 1 dose, On Jazlyn 10/11/20 at 0930, Routine, Preprocedure Given 10/11/2020 9:14 EDT 1,000 mg atropine 0.1 mg/mL syringe 0.5 mg 0.5 mg, intravenous, PRN, Starting on Jazlyn 10/11/20 at 1021, Until Jazlyn 10/11/20 at 1436, Symptomatic HR < 50, Routine, Recovery (only) gabapentin (NEURONTIN) capsule 600 mg 600 mg, oral, PRE-OP ONCE, 1 dose, On Jazlyn 10/11/20 at 0930, Routine, Preprocedure Given 10/11/2020 9:15 EDT 600 mg lactated ringers (LR) infusion 25 mL/hr, intravenous, CONTINUOUS, Starting on Jazlyn 10/11/20 at 0930, Until Jazlyn 10/11/20 at 1436, Routine, Preprocedure Restarted 10/11/2020 9:59 EDT Continued by Anesthesia 10/11/2020 9:53 EDT 25 mL/hr New Bag 10/11/2020 9:18 EDT 25 mL/hr 25 mL/hr metoclopramide (REGLAN) injection 5 mg 5 mg, intravenous, PRN, 1 dose, Starting on Jazlyn 10/11/20 at 1021, Until Jazlyn 10/11/20 at 1436, Nausea, Routine, Recovery (only) metronidazole (FLAGYL) infusion 500 mg 500 mg, intravenous, Administer over 30 Minutes, PRE-OP ONCE, 1 dose, On Jazlyn 10/11/20 at 0930, Routine, Preprocedure Given 10/11/2020 9:14 EDT 500 mg naloxone (NARCAN) injection 0.2 mg 0.2 mg, intravenous, PRN, Starting on Jazlyn 10/11/20 at 1021, Until Jazlyn 10/11/20 at 1436, Opioid Reversal, Routine, Recovery (only) ondansetron (PF) (ZOFRAN) injection 4 mg 4 mg, intravenous, PRN, 1 dose, Starting on Jazlyn 10/11/20 at 1021, Until Jazlyn 10/11/20 at 1436, Nausea, Vomiting, Routine, Recovery (only) oxyCODONE (ROXICODONE) immediate release tablet 5 mg 5 mg, oral, EVERY 30 MINUTES PRN, 2 doses, Starting on Jazlyn 10/11/20 at 1021, Until Jazlyn 10/11/20 at 1436, Pain, Routine, Recovery (only) documented in this encounter Active and Recently Administered Medications Times are shown in EDT. Scheduled Medication Order 10/09/2020 10/10/2020 10/11/2020 acetaminophen (TYLENOL) tablet 1,000 mg (COMPLETED) 1,000 mg, oral, PRE-OP ONCE, 1 dose, On Jazlyn 10/11/20 at 0930, Routine, Preprocedure 0914 (Given - Provid er: Nicolasa Mosher) ceFAZolin (ANCEF) syringe 2 g (COMPLETED)(Linked Group 1) 2 g, intravenous, Administer over 10 Minutes, PRE-OP ONCE, 1 dose, On Jazlyn 10/11/20 at 0930, Routine, Preprocedure 1009 (Given - Provid er: John Webber MD) gabapentin (NEURONTIN) capsule 600 mg (COMPLETED) 600 mg, oral, PRE-OP ONCE, 1 dose, On Jazlyn 10/11/20 at 0930, Routine, Preprocedure 0915 (Given - Provid er: Nicolasa Mosher) metronidazole (FLAGYL) infusion 500 mg (COMPLETED)(Linked Group 1) 500 mg, intravenous, Administer over 30 Minutes, PRE-OP ONCE, 1 dose, On Jazlyn 10/11/20 at 0930, Routine, Preprocedure 0914 (Given - Provid er: Nicolasa Mosher) Continuous Medication Order 10/09/2020 10/10/2020 10/11/2020 lactated ringers (LR) infusion 25 mL/hr, intravenous, CONTINUOUS, Starting on Jazlyn 10/11/20 at 0930, Until Jazlyn 10/11/20 at 1436, Routine, Preprocedure 0918 (New Bag - Prov ider: Nicolasa Mosher)0953 (Continued by Anesthesia - Provider: Ryan Ruiz MD)0958 (Paused - Provider: John Webber MD - Comment: Switch to gravity)0959 (Restarted - Provider: John Webber MD)1049 (Anesthesia Volume Adjustment - Provider: John Webber MD) PRN Medication Order 10/09/2020 10/10/2020 10/11/2020 atropine 0.1 mg/mL syringe 0.5 mg 0.5 mg, intravenous, PRN, Starting on Jazlyn 10/11/20 at 1021, Until Jazlyn 10/11/20 at 1436, Symptomatic HR < 50, Routine, Recovery (only) lidocaine-EPINEPHrine 1 %-1:100,000 20 mL, bupivacaine (PF) (MARCAINE) 20 mL, sodium bicarbonate 4.2 % 7 mL (CANCELED) As needed, Starting on Jazlyn 10/11/20 at 1033, Until Jazlyn 10/11/20 at 1034, Routine, Intraprocedure 1033 (Given - Provid er: Ryan Ruiz MD) metoclopramide (REGLAN) injection 5 mg 5 mg, intravenous, PRN, 1 dose, Starting on Jazlyn 10/11/20 at 1021, Until Jazlyn 10/11/20 at 1436, Nausea, Routine, Recovery (only) naloxone (NARCAN) injection 0.2 mg 0.2 mg, intravenous, PRN, Starting on Jazlyn 10/11/20 at 1021, Until Jazlyn 10/11/20 at 1436, Opioid Reversal, Routine, Recovery (only) ondansetron (PF) (ZOFRAN) injection 4 mg 4 mg, intravenous, PRN, 1 dose, Starting on Jazlyn 10/11/20 at 1021, Until Jazlyn 10/11/20 at 1436, Nausea, Vomiting, Routine, Recovery (only) oxyCODONE (ROXICODONE) immediate release tablet 5 mg 5 mg, oral, EVERY 30 MINUTES PRN, 2 doses, Starting on Jazlyn 10/11/20 at 1021, Until Jazlyn 10/11/20 at 1436, Pain, Routine, Recovery (only) sodium chloride 0.9 % irrigation (CANCELED) As needed, Starting on Jazlyn 10/11/20 at 1024, Until Jazlyn 10/11/20 at 1026, Routine, Intraprocedure 1024 (Given - Provid er: Ryan Ruiz MD) Linked Groups Order Group 1: ceFAZolin (ANCEF) syringe 2 g (COMPLETED)Jump to med 2 g, intravenous, Administer over 10 Minutes, PRE-OP ONCE, 1 dose, On Jazlyn 10/11/20 at 0930, Routine, Preprocedure And metronidazole (FLAGYL) infusion 500 mg (COMPLETED)Jump to med 500 mg, intravenous, Administer over 30 Minutes, PRE-OP ONCE, 1 dose, On Jazlyn 10/11/20 at 0930, Routine, Preprocedure documented in this encounter Orders Medications Ordered That Gerald ht Not Have Been Administered Count Last Ordered Date First Ordered Date atropine 0.1 mg/mL syringe 0.5 mg 1 021 ceFAZolin (ANCEF) syringe 2 g 1 10/11/2020 lidocaine (PF) 10 mg/mL (1 % ) injection 2 mg 1 10/11/2020 lidocaine-EPINEPHrine 1 %-1: 100,000 20 mL, bupivacaine (PF) (MARCAINE) 20 mL, sodium bicarbonate 4.2 % 7 mL 1 10/11/2020 metoclopramide (REGLAN) injection 5 mg 1 naloxone (NARCAN) injection 0.2 mg 1 2020 ondansetron (PF) (ZOFRAN) injection 4 mg 1 10/11/2020 oxyCODONE (ROXICODONE) immed iate release tablet 5 mg 1 10/11/2020 sodium chloride 0.9 % irrigation 1 10/12/19 21 Diet Count Last Ordered Date First Orde red Date DISCHARGE DIET 1 10/11/2020 Nursing Count Last Ordered Date First Orde red Date ACTIVITY INSTRUCTIONS 1 10/11/2020 BATHING INSTRUCTIONS 1 10/11/2020 WOUND CARE INSTRUCTIONS 2 10/11/2020 Discharge Count Last Ordered Date First Orde red Date DISCHARGE PATIENT 1 10/11/2020 Legal Count Last Ordered Date First Orde red Date MISCELLANEOUS DISCHARGE INSTRUCTIONS 1 09/14 documented in this encounter Care Teams Metal Checker Relationship Specialty Start Date End Date Jennifer Ordoñez APRN [address] [facility] [place] [phone] PCP - General 03/22/18 07/06/22 documented as of this encounter
--- OUTSIDE RECORDS SUMMARY | 2024-03-17 12:18 | XMS_ITS | Encounter Summary ---
Author Organization [facility] Address [address] [place] [address] Care Team Providers Care Moderate Needs Teacher Name Role Phone Jennifer Ordoñez MAY Primary Care Provider + Reason for Visit * Reason Comments Acute Renal Failure Follow up on ERNESTINA on CKD in a 64-yo female with PMH that includes CKD, Crohn's Disease, Metabolic acidosis, nephrocalcinosis and RTA with hypomagnesemia. Creatinine was 1.37 mg/dL in October 2019, was as high as 2.07 mg/dL on 06/20/20, and decreased to 1.82 mg/dL (eGFR=29) on 07/16/2020. Medications include magnesium oxide, tramadol, potassium chloride and sodium bicarbonate. Encounter Details Date Type Department Care Team (Late st Contact Info) Description 08/20/2020 13:40 EDT Telemedicine [facility] Nephrology - [address] [phone] Jose L Whitley MD [facility] [address] [place] [phone] Acute renal failure, unspecified acute renal failure type (HCC-CMS) (Primary Dx); Metabolic acidosis; Hypokalemia; Dehydration Social History Tobacco Use Types Packs/Day Years [...] Patient Instructions* Jose L Whitley MD - 08/20/2020 13:40 EDT BMP every 2 months and RTC in 6 months, if stable. documented in this encounter Progress Notes * Jose L Whitley MD - 08/20/2020 1340 EDT This visit was conducted by telephone with consent given by the patients. During the visit, the patient's symptoms, weight, BP, medication usage and recent laboratory test results were reviewed. The telephone call lasted 22 minutes. Home Phone Work Phone NEPHROLOGY OFFICE FOLLOW UP VISIT NOTE SUBJECTIVE Follow up on ERNESTINA on CKD in a 64-yo female with PMH that includes CKD, Crohn's Disease, Metabolic acidosis, nephrocalcinosis and RTA with hypomagnesemia. Creatinine was 1.37 mg/dL in October 2019, was as high as 2.07 mg/dL on 06/20/20, and decreased to 1.82 mg/dL (eGFR=29) on 07/16/2020. Medications include magnesium oxide, tramadol, potassium chloride, Metoprolol and sodium bicarbonate. 08/20/2020 Chief Complaint Patient presents with ??? Acute Renal Failure Follow up on ERNESTINA on CKD in a 64-yo female with PMH that includes CKD, Crohn's Disease, Metabolic acidosis, nephrocalcinosis and RTA with hypomagnesemia. Creatinine was 1.37 mg/dL in October 2019, was as high as 2.07 mg/dL on 06/20/20, and decreased to 1.82 mg/dL (eGFR=29) on 07/16/2020. Medications include magnesium oxide, tramadol, potassium chloride and sodium bicarbonate. HPI As above. She described some reduced abdominal pain. She has questions regarding IV infusions for rehydration - she can discuss that with the PCP - as she cannot drink enough to keep well hydrated and therefore ending up in the ED at least once a month. Patient Active Problem List Diagnosis ??? Chronic kidney disease, stage III (moderate) ??? Tachycardia ??? Hematuria ??? Diarrhea with dehydration ??? Nephrocalcinosis ??? Renal tubular acidosis ??? Nephrolithiasis ??? Crohn's disease (HCC-CMS) ??? Fibromyalgia Past Medical History: Diagnosis Date ??? Anemia [...] stones ??? Renal tubular acidosis dx at [facility], after bowel surgery ??? Tachycardia rx with [...] Frequency: 2.0 times per week Types: Marijuana Family History Problem Relation Age [...] visit. Phone visit. Jose L Whitley MD 08/20/2020 12:50 Lab Results Component Value Date K 4.7 [...] UROBILINOGEN, NITRITE, LEUKESTER ASSESSMENT & PLAN CKD status - Follow up on ERNESTINA on CKD in a 64-yo female with PMH that includes CKD, Crohn's Disease,Metabolic acidosis, nephrocalcinosis and RTA with hypomagnesemia. Creatinine was 1.37 mg/dL in October 2019, was recently as high as 2.07 mg/dL on 06/20/20, and decreased to 1.82 mg/dL (eGFR=29) on 07/16/2020. Medications include magnesium oxide, tramadol, potassium chloride, metoprololand sodium bicarbonate. Generally, serum creatinine has ranged between 1.4 - 2.0 mg/dL since 2013 with significant seesaw variability. Crohn's Disease symptomatology would be an additional factor affecting kidney function and electrolytes. BMP every 2 months and RTC in 6 months, if stable. Hypomagnesemia - On supplements. PCP to follow up. Hypokalemia - On potassium supplements. Potassium was 4.6 mmol/L in July 2020. Metabolic acidosis - BMP recheck every 2 months. Bicarbonate was 29 mmol/L in July 2020. IV Vascular access - She should be able to get a vascular access such as an upper chest port for IVinfusions to treat recurrent hypovolemia from the Crohn's Disease. documented in this encounter Plan of Treatment Upcoming Encounters Date Type Department Care Team (Late st Contact Info) Description 04/07/2024 9:00 EST Office Visit [facility] Endocrinology - [address] [phone] Vincenzo Rawls MD [address] [place] [address] [address] [place] [phone] 08/22/2024 15:30 EDT Telemedicine [facility] Nephrology - [address] [phone] Jose L Whitley MD [address] [facility], [address] [place] [phone] documented as of this encounter Visit Diagnoses Diagnosis Acute renal failure, unspecified acute renal failure type (HCC-CMS)- Primary Metabolic acidosis Acidosis Hypokalemia Hypopotassemia Dehydration documented in this encounter Care Teams Moderate Needs Teacher Relationship Specialty Start Date End Date Jennifer Ordoñez, ROCKET MOTOR MECH[employer]IC [address] [place] [phone] PCP - General 03/22/18 07/06/22 documented as of this encounter
--- OUTSIDE RECORDS SUMMARY | 2024-03-17 12:18 | XMS_ITS | Encounter Summary ---
Author Organization [facility] Address [address] [place] [address] Care Team Providers Care Contact Worker Name Role Phone Jennifer Ordoñez MAY Primary Care Provider + Reason for Visit * Reason Onset Date Comments Appointment Related 06/11/2020 Encounter Details Date Type Department Care Team (Late st Contact Info) Description 06/11/2020 Telephone [facility] Nephrology - [address] [address] Jose L Whitley MD 1 [facility], Level 2 [place] [address] Appointment Related Social History Tobacco [...] encounter Miscellaneous Notes * Telephone Encounter - Ree Bhandari - 06/11/2020 2607 EDT Pt has no showed three consecutive appts: 10/10/19, 05/21/20, & 06/11/20. This office will not makeanother attempt to reschedule without the request of the PCP. documented in this encounter Plan of Treatment Upcoming Encounters Date Type Department Care Team (Late st Contact Info) Description 04/07/2024 9:00 EST Office Visit [facility] Endocrinology - [facility] [address] [place] [address] Vincenzo Rawls MD 62 [facility] [address] [place] [phone] 08/22/2024 15:30 EDT Telemedicine [facility] Nephrology - [address] [address] Jose L Whitley MD 1 [facility], Level 2 [place] [phone] documented as of this encounter Visit Diagnoses Not on filedocumented in this encounter Care Teams Contact Worker Relationship Specialty Start Date End Date Jennifer Ordoñez APRN 4 [facility] [place] [phone] PCP - General 03/22/18 07/06/22 documented as of this encounter
--- OUTSIDE RECORDS SUMMARY | 2024-03-17 12:18 | XMS_ITS | Encounter Summary ---
Author Organization [facility] Address [address] [place] [address] Care Team Providers Care Stitch Bonding Machine Tender Name Role Phone Jennifer Ordoñez MAY Primary Care Provider + Reason for Visit * Auth/Cert Specialty Diagnoses / Procedures Referred By Savannah ware Referred To Contact Diagnoses Disruption of perineal wound Procedures WI SURG DIAGNOSTIC EXAM, ANORECTAL EXAM UNDER ANESTHESIA, ANORECTAL, curretage of a non-healing perineal wound Referral ID Status Reason Start Date Expiration Date Visits Re quested Visits Authorized [id number] 1 1 Encounter Details Date Type Department Care Team (Late st Contact Info) Description 10/11/2020 10:05 EDT - 10/11/2020 11:20 EDT Surgery [facility] OR [address] [place] [id number] Ryan Ruiz MD [address] [place] [address], [facility], Level 5 [place] [phone] EXAM UNDER ANESTHESIA, ANORECTAL, curretage of a non-healing perineal wound, and seton placement. [82870 (CPT??)] Surgery Details Date/Time Status Location OR Service Patient Class Case Cl ass Case Type Trauma Case? 10/11/2020 1005 Posted [facility] OR [address] Outpatient Surgery H - Elective Panel 1 Procedure LRB Anes Op Region Wound Class Comments EXAM UNDER ANESTHESIA, ANORECTAL, curretage of a non-healing perineal wound, and seton placement. N/A Monitored Anesthesia Care Anus Class IV/ Dirty or Infected cut to close 20 mins Surgeon Surgeon Role Service Panel Ryan Ruiz MD Primary General 1 documented in this encounter Social History [...] Sign Reading Time Taken Comments Blood Pressure 133/84 10/11/2020 1115 EDT Pulse - - Temperature 36.4 ??C (97.5 ??F) 10/11/2020 1049 EDT Respiratory Rate 14 10/11/2020 1115 EDT Oxygen Saturation 100% 10/11/2020 1115 EDT Inhaled Oxygen Concentration - - Weight [...] Code Departure Means Destination Home or Self Longterm documented in this encounter Progress Notes * Vidhi Nicolasa - 10/11/2020 0992 EDT Pt refused to get up and void Nicolasa Mosher APRN CNM * Xuan Vegas RN - 10/10/2020 0941 EDT COVID 19 Screening Perioperative at time [...] not instruct patient regarding COVID testing, let [facility] coordinate this -Communicate status on yellow form for DOS If patient develops any of these symptoms between now and their surgery date instruct them to call us back at [phone] to report symptoms Visitor Policy: - Inpatients [...] stones ??? Renal tubular acidosis dx at [facility], after bowel surgery ??? Tachycardia rx with [...] Placement of a draining Seton. SURGEON: Ryan Ruzi MD FACS [employer] ICE CREAM FREEZER HELPER: Ree Padron MS ANESTHESIA: Local with IV [...] retained. Ryan Ruiz MD FACS [employer] / Confirmation: [id number] Dictation ID: [id number] cc: Jennifer Ordoñez APRN, [address] [place] [phone] * Preprocedure Instructions - Xuan Vegas, CHARLIE - 10/10/2020 0907 EDT Zaira Yared Collins has been instructed as follows regarding [...] Description 04/07/2024 9:00 EST Office Visit [facility] Endocrinology - [address] [phone] Vincenzo Rawls MD [address] [place] [address] [address] [place] [address] 08/22/2024 15:[address] [facility] Nephrology - [address] [address] Jose L Whitley MD [address] [place], [place] [address], Level 2 [place] [phone] documented as of this encounter Procedures Procedure Name Priority Date/Time Associated Diagnosis Comments EXAM UNDER ANESTHESIA, ANORECTAL 10/11/2020 9:43 EDT Disruption of perineal wound documented in this encounter Visit Diagnoses Diagnosis Disruption of perineal wound- Primary Disruption of perineal wound, unspecified as to episode of care in Disruption of perineal wound Disruption of perineal [...] 10/11/2020 9:18 EDT 25 mL/hr 25 mL/hr lidocaine-EPINEPHrine 1 %-1:100,000 20 mL, bupivacaine (PF) (MARCAINE) 20 mL, sodium bicarbonate 4.2 % 7 mL As needed, Starting on Jazlyn 10/11/20 at 1033, Until Jazlyn 10/11/20 at 1034, Routine, Intraprocedure Given 10/11/2020 10:33 EDT 13 mL Other metoclopramide (REGLAN) injection 5 mg 5 mg, [...] Recovery (only) sodium chloride 0.9 % irrigation As needed, Starting on Jazlyn 10/11/20 at 1024, Until Jazlyn 10/11/20 at 1026, Routine, Intraprocedure Given 10/11/2020 10:24 EDT 1,000 mL Other documented in this encounter Active and Recently [...] % ) injection 2 mg 1 10/11/2020 metoclopramide (REGLAN) injection 5 mg naloxone (NARCAN) injection 0.2 mg 2020 ondansetron (PF) (ZOFRAN) injection 4 mg 1 10/11/2020 oxyCODONE (ROXICODONE) immed iate release tablet 5 mg 1 10/11/2020 Diet Count Last Ordered Date First Orde [...] 09/14 documented in this encounter Care Teams Stitch Bonding Machine Tender Relationship Specialty Start Date End Date Jennifer Ordoñez APRN [address] [place] [address] PCP - General 03/22/18 07/06/22 documented as of this encounter
--- OUTSIDE RECORDS SUMMARY | 2024-03-17 12:18 | XMS_ITS | Encounter Summary ---
Author Organization [facility] Address [address] [place] [address] Care Team Providers Care Child Attendant Name Role Phone Jennifer Ordoñez MAY Primary Care Provider + Reason for Visit * Reason Onset Date Comments Rectal Bleeding 08/24/2020 Encounter Details Date Type Department Care Team (Late st Contact Info) Description 08/24/2020 Telephone [facility] General Surgery - [facility] [address] [place], [place] [phone] Ryan Ruiz MD 111 [facility], [address] 5 [place] [address] Rectal Bleeding Social History Tobacco Use Types Packs/Day Years [...] Telephone Encounter - Li Carvajal RN - 08/24/2020 0002 EDT I have tried to return the patient call but she is not answering and her mail box is full and I cannot leave a message. Clinic is closing soon, will try again before I leave clinic and then again onThursday. Cynthia is s/p 04/15/18 POSTOPERATIVE DIAGNOSIS: History of Crohn disease, anus in place status post proctocolectomy. ??PROCEDURE: Removal of the anus and distal rectum via a perineal approach. ??SURGEON: Ryna Ruiz MD FACS [employer]. Then s/p 10/27/18 POSTOPERATIVE DIAGNOSIS: Nonhealing perineal wound. ??PROCEDURE: Opening and debridement of a perianal wound measuring 3 x 1 x 4 cm. ??SURGEON: Ryan Ruiz MD FACS F[employer]. She was last seen post op with Dr Ruiz on 12/08/20 and now showed her 6 wk follow up that was on 02/02/19. I have reached out several times and no return call, I will close this phone encounter until she returns the call at a later time. * Telephone Encounter - Lit Shawa - 08/24/2020 1353 EDT S/P Opening and debridement of a perianal wound measuring 3 x 1 x 4 cm on . Patient c/o rectal bleeding,red,swollen and painful. No fever and chills. Taking Aleve with little relief, documented in this encounter Plan of Treatment Upcoming Encounters Date Type Department Care Team (Late st Contact Info) Description 04/07/2024 9:00 EST Office Visit [facility] Endocrinology - [address] [address] Vincenzo Rawls MD 62 [facility] [address] [place] [address] 08/22/2024 15:30 EDT Telemedicine [facility] Nephrology - [address] [phone] Jose L Whitley MD [address] [place] [address] Rehab, Level 2 [place] [phone] documented as of this encounter Visit Diagnoses Not on filedocumented in this encounter Care Teams Child Attendant Relationship Specialty Start Date End Date Jennifer Ordoñez APRN 4 [place] [phone] PCP - General 03/22/18 07/06/22 documented as of this encounter
--- OUTSIDE RECORDS SUMMARY | 2024-03-17 12:19 | XMS_ITS | Encounter Summary ---
Author Organization [facility] Address [address] [place] [address] Care Team Providers Care Package Handler Name Role Phone Jennifer Ordoñez MAY Primary Care Provider + Reason for Visit * Reason Comments Follow-up 4-6 week f/u wound c heck Encounter Details Date Type Department Care Team (Late st Contact Info) Description 06/16/2018 9:30 EDT Office Visit [facility] General Surgery - [facility] [address] [place], [place] [phone] Ryan Ruiz MD 111 [facility], [address] [place] [address] Postop check (Primary Dx) Social History Tobacco Use Types Packs/Day Years Used Date Smoking Tobacco: Every Day Cigarettes Smokeless Tobacco: Never Alcohol Use Standard Drinks/Week Comments No 0 (1 standard drink = 0.6 oz pur e alcohol) Comments Unknown Sex and Gender Information Value [...] this encounter Progress Notes * Ryan Ruiz MD, MD - 06/16/2018 7826 EDT Subjective: Patient ID: Zaira Collins is an 62 y.o. female. Chief Complaint Patient presents with ??? Follow-up 4-6 week f/u wound check HPI Cynthia is here in follow-up. On April 15 she underwent removal of the out of circuit anus. When I saw her 2 months ago she had breakdown of the wound and a deep cavity with a depth of approximately 3 cm. I recommended packing and she has been doing this with the assistance of her boyfriend and with 3 times a week VNA visit. The VNA tells her that she should not be up moving around and that she should stay laying down to improve healing. This is frustrating to her. She does continue to see moisture. There is an occasional picking pain which she thinks may be related to a suture. She was recently admitted to the hospital for pneumonia and also for dehydration. Patient Active Problem List Diagnosis ??? Chronic kidney disease, stage III (moderate) ([facility]) ??? Tachycardia ??? Hematuria ??? Diarrhea with dehydration ??? Nephrocalcinosis ??? Renal tubular acidosis ??? Nephrolithiasis ??? Crohn's disease (HCC-CMS) ??? Fibromyalgia Past Medical History: Diagnosis Date ??? Anemia ??? Anomaly, cardiac tachycardia ??? Chronic kidney disease, stage III (moderate) ([facility]) ??? Crohn's disease ([facility]) s/p colectomy and small bowel resections with ileostomy ??? Depression ??? Diarrhea with dehydration leading to recurrent episodes of ERNESTINA ??? Fibromyalgia ??? Heart murmur ??? Hematuria cystoscopy, renal CT, cytology unremarkable ??? Mental disorder ??? 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 Nephrolithiasis unknown type, required procedrues for removal; no recent stones ??? Renal tubular acidosis dx at [facility], after bowel surgery ??? Tachycardia rx with [...] status: Current Every Day Smoker Packs/day: 1.00 ??? Smokeless tobacco: Never Used Substance Use Topics ??? Alcohol use: No ??? Drug use: Yes Frequency: 2.0 times per week Types: Marijuana Current Outpatient Medications on File Prior to Visit Medication Sig Dispense Refill ??? acetaminophen (TYLENOL) 325 mg tablet Take 3 Tabs by mouth every 6 hours as needed for Pain. ??? BIOTIN ORAL Take 5,000 mg by mouth daily. ??? cyanocobalamin (VITAMIN B-12) 1,000 mcg/mL injection Inject 1,000 mcg into the muscle every 28 days. ??? Cyanocobalamin 1,000 mcg TbER Take by mouth. ??? cyclobenzaprine (FLEXERIL) 10 mg tablet Take 10 mg by mouth 3 times daily as needed. ??? DIAZepam (VALIUM) 5 mg tablet Take 5 mg by mouth 2 times daily. ??? DULoxetine (CYMBALTA) 60 mg capsule Take 60 mg by mouth daily. ??? estradiol (VIVELLE) 0.025 mg/[address] 1 Patch onto the skin once a week. ??? ESTRADIOL ORAL Take 1 tablet by mouth daily. ??? Ginkgo Biloba 40 mg tablet Take 60 mg by mouth daily. ??? HYDROmorphone (DILAUDID) 2 mg tablet Take 1 Tab by mouth every 4 hours as needed for Pain. Daily Max: 12 mg (Patient not taking: Reported on 05/05/2018) 14 Tab 0 ??? loperamide (IMODIUM A-D) 2 mg tablet Take 2 mg by mouth 2 times daily as needed for Diarrhea. ??? magnesium oxide (MAG-OX) 400 mg tablet Take 400 mg by mouth daily. ??? metoprolol (LOPRESSOR) 25 mg tablet Take 25 mg by mouth daily. ??? ONDANSETRON HCL ORAL Take 4 mg by mouth 2 times daily. ??? potassium chloride (MICRO-K) 10 mEq capsule Take 20 mEq by mouth 2 times daily. ??? sodium bicarbonate 650 mg tablet Take 3 Tabs by mouth 4 times daily. No current facility-administered medications on file prior to visit. Allergies Allergen Reactions ??? Chantix [Varenicline] SEISURES ROS - See HPI Objective: There were no vitals taken for this visit. Physical Exam Constitutional: She appears well-developed and well-nourished. Eyes: Pupils are equal, round, and reactive to light. No scleral icterus. Pulmonary/Chest: Effort normal. No respiratory distress. Genitourinary: Genitourinary Comments: The perianal wound is healing very nicely. It now only has a depth of a centimeter and is both more narrow as well as less wide. There is excellent granulation tissue which I treated with silver nitrate. Li Carvajal was present as a traffic routing engineer Skin: Skin is warm and dry. No rash noted. No pallor. Psychiatric: Her behavior is normal. Judgment normal. Assessment: Her perianal wound is healing nicely with the packing that she is doing. [place] on visiting nurses is problematic given the scheduling and the fact that it ties her to the house 3 days a week. She and her boyfriend are comfortable doing the packing. Plan: She and her boyfriend will continue to do the packing and we will cancel the VNA. She will work turn and 2 months for follow-up visit. (Z09) Postop check (primary encounter diagnosis) Ryan Ruiz MD Med Orders Placed This Visit and Additions to the Medication List Medications ??? ESTRADIOL ORAL Sig: Take 1 tablet by mouth daily. documented in this encounter Plan of Treatment Upcoming Encounters Date Type Department Care Team (Late st Contact Info) Description 04/07/2024 9:00 EST Office Visit [facility] Endocrinology - [address] [phone] Vincenzo Rawls MD 62 [facility] [address] [place] [phone] 08/22/2024 15:30 EDT Telemedicine [facility] Nephrology - [address] [address] Jose L Whitley MD [address] [place] [address], [address] [place] [phone] documented as of this encounter Visit Diagnoses Diagnosis Postop check- Primary Follow-up examination, following unspecified surgery documented in this encounter Historical Medications * This list may reflect changes made after this encounter. estradioL (ESTRACE) 0.5 mg tablet Take 0.5 Tablets by mouth daily. 1/2 tab daily added in this encounter Care Teams Package Handler Relationship Specialty Start Date End Date Jennifer Ordoñez APRN 4 [facility] [place] [phone] PCP - General 03/22/18 07/06/22 documented as of this encounter
--- OUTSIDE RECORDS SUMMARY | 2024-03-17 12:19 | XMS_ITS | Encounter Summary ---
Author Organization [facility] Address [address] [place] [address] Care Team Providers Care Lumber Straightener Name Role Phone Jennifer Ordoñez MAY Primary Care Provider + Encounter Details Date Type Department Care Team (Late st Contact Info) Description 12/30/2018 Abstract [facility] Nephrology - [address] [phone] Jose L Whitley MD 1 [facility], Level 2 [place] [address] Social History Tobacco Use Types [...] Office Visit [facility] Endocrinology - [address] [phone] Vincenzo Rawls MD [address] [place] [address] [address] [place] [phone] 08/22/2024 15:30 EDT Telemedicine [facility] Nephrology - [address] [address] Jose L Whitley MD 1 [facility], [address] [place] [phone] documented as of this encounter Procedures Procedure Name Priority Date/Time Associated Diagnosis Comments BASIC METABOLIC PANEL (BMP) Routine 11/03/2018 COMPLETE BLOOD COUNT Routine 10/21/2018 BASIC METABOLIC PANEL (BMP) Routine 10/21/2018 documented in this encounter Results * BASIC METABOLIC PANEL (BMP) (11/03/2018) GFR, Calculated, External 36.30 EXTERNAL LAB Glucose, Serum, External 84 EXTERNAL LAB Calculated Calcium, External EXTERNAL LAB BUN, External 35 EXTERNAL LAB Calcium, External 9.1 EXTERNAL LAB Chloride, External 108 EXTERNAL LAB CO2, External 19.7 EXTERNAL LAB Creatinine, External 1.46 EXTERNAL LAB Fasting?, External EXTERNAL LAB Potassium, External 4.6 EXTERNAL LAB Sodium, External 141 EXTERNAL LAB Blood specimen (specimen) 11/03/2018 Result [facility] Provider CHEMISTRY & BLOOD GAS ORD ERABLES Final Result Performing Organization Address City/[facility]/ZIP Co de Phone Number EXTERNAL LAB * COMPLETE BLOOD COUNT (10/21/2018) HCT, External 36 EXTERNAL LAB MCH, External 33.1 EXTERNAL LAB MCV, External 101 EXTERNAL LAB MCHC, External EXTERNAL LAB Hemoglobin, External 11.9 EXTERNAL LAB WBC, External 7.76 EXTERNAL LAB RBC, External 3.59 EXTERNAL LAB PLT, External 341 EXTERNAL LAB RDW-CV, External EXTERNAL LAB Blood specimen (specimen) 10/21/2018 Result [facility] Provider HEMATOLOGY & PF4 ORDERABL ES Final Result Performing Organization Address [facility] de Phone Number EXTERNAL LAB * BASIC METABOLIC PANEL (BMP) (10/21/2018) GFR, Calculated, External 37 EXTERNAL LAB Glucose, Serum, External 95 EXTERNAL LAB Calculated Calcium, External EXTERNAL LAB BUN, External 22 EXTERNAL LAB Calcium, External 9.0 EXTERNAL LAB Chloride, External 105 EXTERNAL LAB CO2, External 29 EXTERNAL LAB Creatinine, External 1.44 EXTERNAL LAB Fasting?, External EXTERNAL LAB Potassium, External 4.6 EXTERNAL LAB Sodium, External 142 EXTERNAL LAB Blood specimen (specimen) 10/21/2018 Result [facility] Historical Provider CHEMISTRY & BLOOD GAS ORD ERABLES Final Result Performing Organization Address City/[facility]/ZIP Co de Phone Number EXTERNAL LAB documented in this encounter Visit Diagnoses Not on filedocumented in this encounter Care Teams Lumber Straightener Relationship Specialty Start Date End Date Jennifer Ordoñez, RECONDITIONER [address] [place] [phone] PCP - General 03/22/18 07/06/22 documented as of this encounter
--- OUTSIDE RECORDS SUMMARY | 2024-03-17 12:19 | XMS_ITS | Encounter Summary ---
Author Organization [facility] Address [address] [place] [address] Care Team Providers Care Sod Cutter Name Role Phone Jennifer Ordoñez MAY Primary Care Provider + Encounter Details Date Type Department Care Team (Late st Contact Info) Description 03/25/2019 Abstract [facility] Nephrology - [place] [address] [place] [phone] Jose L Whitley MD 1 [facility], Level 2 [place] [address] Social History Tobacco Use Types [...] Description 04/07/2024 9:00 EST Office Visit [facility] Endocrinology - [address] [phone] Vincenzo Rawls MD [address] [place] [address] [address] [place] [address] 08/22/2024 15:30 EDT Telemedicine [facility] Nephrology - [address] [address] Jose L Whit[facility] MD 1 [facility], Level 2 [place] [phone] documented as of this encounter Procedures Procedure Name Priority Date/Time Associated Diagnosis Comments VITAMIN D (25,OH) Routine 03/04/2019 COMPLETE BLOOD COUNT AND DIFFERENTIAL Routine 03/04/2019 MAGNESIUM Routine 03/04/2019 FOLATE Routine 03/04/2019 VITAMIN B12 Routine 03/04/2019 BASIC METABOLIC PANEL (BMP) Routine 03/04/2019 documented in this encounter Results * (ABNORMAL) FOLATE (03/04/2019) Folate, External >20.0 EXTERNAL LAB Blood VENOUS BLOOD / Unknown 03/04/2019 Result [facility] Historical Provider MD CHEMISTRY & BLOOD GAS ORD ERABLES Final Result EXTERNAL LAB * (ABNORMAL) VITAMIN B12 (03/04/2019) Pathologist [facility] Vitamin B-12, External 1,010 EXTERNAL LAB Blood VENOUS BLOOD / Unknown 03/04/2019 Result [facility] Provider CHEMISTRY & BLOOD GAS ORD ERABLES Final Result EXTERNAL LAB * MAGNESIUM (03/04/2019) Pathologist [facility] Magnesium, External 1.8 EXTERNAL LAB Blood VENOUS BLOOD / Unknown 03/04/2019 [facility] Provider CHEMISTRY & BLOOD GAS ORD ERABLES Final Result EXTERNAL LAB * (ABNORMAL) COMPLETE BLOOD COUNT AND DIFFERENTIAL (03/04/2019) WBC, External 5.68 EXTERNAL LAB RBC, External 3.82 EXTERNAL LAB Hemoglobin, External 12.1 EXTERNAL LAB HCT, External 38.2 EXTERNAL LAB MCV, External 100.0 EXTERNAL LAB MCH, External 31.7 EXTERNAL LAB MCHC, External 31.7 EXTERNAL LAB PLT, External 387 EXTERNAL LAB RDW-CV, External 13.8 EXTERNAL LAB Neutrophils, External 52.2 EXTERNAL LAB Lymphocytes, External 34.2 EXTERNAL LAB Monocytes, External 9.5 EXTERNAL LAB Eosinophils, External 3.5 EXTERNAL LAB Basophils, External 0.4 EXTERNAL LAB ABS Neutrophils, External 2.97 EXTERNAL LAB ABS Lymphs, External 1.94 EXTERNAL LAB ABS Monocytes, External 0.54 EXTERNAL LAB ABS Eosinophils, External 0.20 EXTERNAL LAB ABS Basophils, External 0.02 EXTERNAL LAB Blood VENOUS BLOOD / Unknown 03/04/2019 Result [facility] Provider PACKAGES & DNA PROBE MANUEL GREER Final Result Performing Organization Address City/[facility]/ZIP Co de Phone Number EXTERNAL LAB * (ABNORMAL) BASIC METABOLIC PANEL (BMP) (03/04/2019) GFR, Calculated, External 26.15 EXTERNAL LAB Glucose, Serum, External 126 EXTERNAL LAB Calculated Calcium, External EXTERNAL LAB BUN, External 22 EXTERNAL LAB Calcium, External 9.3 EXTERNAL LAB Chloride, External 100 EXTERNAL LAB CO2, External 34.2 EXTERNAL LAB Creatinine, External 1.94 EXTERNAL LAB Fasting?, External EXTERNAL LAB Potassium, External 3.9 EXTERNAL LAB Sodium, External 142 EXTERNAL LAB Blood VENOUS BLOOD / Unknown 03/04/2019 Result [facility] Provider CHEMISTRY & BLOOD GAS ORD ERABLES Final Result Performing Organization Address [facility]/ZIP Co de Phone Number EXTERNAL LAB * (ABNORMAL) VITAMIN D (25,OH) (03/04/2019) Pathologist [facility] 25OH Vitamin D Tot, External 26.0 EXTERNAL LAB Blood VENOUS BLOOD / Unknown 03/04/2019 Result [facility] Historical Provider CHEMISTRY & BLOOD GAS ORD ERABLES Final Result Performing Organization Address City/[facility]/ZIP Co de Phone Number EXTERNAL LAB documented in this encounter Visit Diagnoses Not on filedocumented in this encounter Care Teams Sod Cutter Relationship Specialty Start Date End Date Jennifer Ordoñez, SHOW DOG TRAINER [address] [place] [place] [address] PCP - General 03/22/18 07/06/22 documented as of this encounter
--- OUTSIDE RECORDS SUMMARY | 2024-03-17 12:19 | XMS_ITS | Encounter Summary ---
Author Organization [facility] Address [address] [place] [address] Care Team Providers Care Roofing Plant Supervisor Name Role Phone Jennifer Ordoñez MAY Primary Care Provider + Reason for Visit * Reason Onset Date Comments Other 06/17/2018 Encounter Details Date Type Department Care Team (Late st Contact Info) Description 06/17/2018 Telephone [facility] General Surgery - [address] [address] Ryan Ruiz MD [address] [place] [address], [address] 5 [place] [address] Other Social History Tobacco Use [...] Telephone Encounter - Li Carvajal RN - 06/18/2018 0840 EDT [facility] will continue to see the patient for the next few weeks once a week for ileostomy support and to set her up to get her supplies through a medical supply company to be delivered to her home once she is discharged from [facility]. * Telephone Encounter - Tammy Rose - 06/17/2018 1643 EDT They are not discharging patient as planned. Patient can't afford ostomy supplies, and they are going to continue to see her once a week for teaching for a few more weeks.this is fyi documented in this encounter Plan of Treatment Upcoming Encounters Date Type Department Care Team (Late st Contact Info) Description 04/07/2024 9:00 EST Office Visit [facility] Endocrinology - [address] [phone] Vincenzo Rawls MD 62 [facility] [address] [place] [address] 08/22/2024 15:30 EDT Telemedicine [facility] Nephrology - [address] [phone] Jose L Whitley MD [address] [place], [place] [address], Level 2 [place] [address] documented as of this encounter Visit Diagnoses Not on filedocumented in this encounter Care Teams Roofing Plant Supervisor Relationship Specialty Start Date End Date Jennifer Ordoñez APRN [address] [place] [phone] PCP - General 03/22/18 07/06/22 documented as of this encounter
--- OUTSIDE RECORDS SUMMARY | 2024-03-17 12:19 | XMS_ITS | Encounter Summary ---
Author Organization [facility] Address [address] [place] [address] Care Team Providers Care Senior Specialist Name Role Phone Jennifer Ordoñez MAY Primary Care Provider + Encounter Details Date Type Department Care Team (Late st Contact Info) Description 09/20/2019 Abstract [facility] Nephrology - [place] [address] [place] [phone] Jose L Whitley MD 1 [facility], Level 2 [place] [address] Social History Tobacco Use Types [...] Description 04/07/2024 9:00 EST Office Visit [facility] Endocrinology - [address] [phone] Vincenzo Rawls MD [address] [place] [address] [address] [place] [address] 08/22/2024 15:30 EDT Telemedicine [facility] Nephrology - [address] [phone] Jose L Whitley MD 1 [facility], Level [address] [place] [phone] documented as of this encounter Procedures Procedure Name Priority Date/Time Associated Diagnosis Comments BASIC METABOLIC PANEL (BMP) Routine 09/15/2019 documented in this encounter Results * BASIC METABOLIC PANEL (BMP) (09/15/2019) [facility] Signature GFR, Calculated, External 22.38 [facility] Glucose, Serum, External 111 [facility] Calculated Calcium, External [facility] BUN, External 24 [facility] Calcium, External 9.3 [facility] Chloride, External 100 [facility] CO2, External 30.5 [facility] Creatinine, External 2.22 [facility] Fasting?, External [facility] Potassium, External 3.9 [facility] Sodium, External 138 [facility] Blood VENOUS BLOOD / Unknown 09/15/2019 us Historical Provider CHEMISTRY & BLOOD GAS ORD ERABLES Final Result [facility] [address] [place] [address] documented in this encounter Visit Diagnoses Not on filedocumented in this encounter Care Teams Senior Specialist Relationship Specialty Start Date End Date Jennifer Ordoñez, [employer]EDER [address] [place] [phone] PCP - General 03/22/18 07/06/22 documented as of this encounter
--- OUTSIDE RECORDS SUMMARY | 2024-03-17 12:19 | XMS_ITS | Encounter Summary ---
Author Organization [facility] Address [address] [place] [address] Care Team Providers Care Communications Advisor Name Role Phone OrdoñezJennifer spence Mariam OLVERA Primary Care Provider + Reason for Visit * (Routine) - Receiving Office to Obtain Authorization Specialty Diagnoses / Procedures Referred By Savannah ware Referred To Contact Procedures XR OUTSIDE IMAGES DEXA Unknown, Provider, MD Referral ID Status Reason Start Date Expiration Date Visits Requested Visits Authorized [id number] Receiving Office to Obtain Authorization 11/28/2019 1 1 Encounter Details Date Type Department Care Team (Latest Contact Info) Description 10/11/2019 - 10/11/2019 23:59 EDT Hospital Encounter [facility] Radiology - Main [employer] [address] [place], [place] [phone] Discharge Disposition: Home or Self Care Social [...] Info) Description 04/07/2024 9:00 EST Office Visit [facility] Endocrinology - [facility] [address] [place] [address] Vincenzo Rawls MD 62 [facility] [address] [place] [address] 08/22/2024 15:30 EDT Telemedicine [facility] Nephrology - [facility] [address] [place], [place] [address] Jose L Whitley MD 1 [facility], Level 2 [place] [phone] documented as of this encounter Procedures Procedure Name Priority Date/Time Associated Diagnosis Comments XR OUTSIDE IMAGES DEXA Routine 11/28/2019 17:42 EDT documented in this encounter Results * XR OUTSIDE IMAGES DEXA (11/28/2019 17:42 EDT) Narrative [facility] - 11/28/2019 17:42 EDT This is a non-reportable exam. us Provider Unknown MD DRIVER OTHER IMAGING ORDERABLES Final Result [facility] documented in this encounter Visit Diagnoses Not on filedocumented in this encounter Care Teams Communications Advisor Relationship Specialty Start Date End Date Jennifer Ordoñez APRN [address] [place] [address] PCP - General 03/22/18 07/06/22 documented as of this encounter
--- OUTSIDE RECORDS SUMMARY | 2024-03-17 12:19 | XMS_ITS | Encounter Summary ---
Author Organization [facility] Address [address] [place] [address] Care Team Providers Care Frame Polisher Name Role Phone Jennifer Ordoñez MAY Primary Care Provider + Reason for Visit * Reason Comments Suture / Staple Removal Encounter Details Date Type Department Care Team (Late st Contact Info) Description 04/26/2018 13:00 EST Office Visit [facility] General Surgery - [facility] [address] [place] [address] Unknown, Provider, MD [place], General Surgery [facility], [address] [place] [address] Crohn's disease with complication, unspecified gastrointestinal tract location (HCC-CMS) (Primary Dx) Social History Tobacco Use [...] documented in this encounter Progress Notes * Li Carvajal RN - 04/26/2018 1300 EST Cynthia is here today with her female neighbor/friend to have her perineal sutures removed. She is s/p 04/15/18?? POSTOPERATIVE DIAGNOSIS: History of Crohn disease, anus in place status post proctocolectomy. ??PROCEDURE: Removal of the anus and distal rectum via a perineal approach. ??SURGEON: Ryan Ruiz MD FACS FASCRS. She is eating small amounts and drinking well. Has not had a good appetite for over 2 years by her account and her PCP prescribes ondansetron prn. Her ileostomy is functioning well, stool is completely liquid. We discussed trying to take the imodium am and pm crushed in between two spoon and mix inapplesauce to try to decrease the output volume and thicken the output. Perineal incision has some bright red bleeding from the center of the incision. Have asked Dr Dash to come into the visit to evaluate prior to my removing the sutures. He has removed the center two and suggested leaving the most proximal and distal suture until her post op visit with Dr Ruiz on Thursday next week 05/05/18. There is a small 1cm opening, shallow 1-2 cm deep from where thebloody drainage was coming from. Patient to shower daily rinse the incision well and keep dry dressing in panties and change often to keep skin dry from drainage. Patient Education Topic: care for incision Method: Verbal Taught to: Other and Patient Barriers: None Outcomes: verbalized understanding Signature:Li Carvajal RN I was supervised by Dr Shay Pineda who was present and immediately available in the office suite. Li Carvajal RN 04/29/2018 10:26 documented in this encounter Plan of Treatment Upcoming Encounters Date Type Department Care Team (Late st Contact Info) Description 04/07/2024 9:00 EST Office Visit [facility] Endocrinology - [address] [phone] Vincenzo Rawls MD 62 [facility] [address] [place] [address] 08/22/2024 15:30 EDT Telemedicine [facility] Nephrology - [address] [phone] Jose L Whitley MD 1 [facility] Level 2 [place] [phone] documented as of this encounter Visit Diagnoses Diagnosis Crohn's disease with complication, unspecified gastrointestinal tract location (HCC-CMS)- Primary documented in this encounter Care Teams Frame Polisher Relationship Specialty Start Date End Date Jennifer Ordoñez APRN [address] [place] [phone] PCP - General 03/22/18 07/06/22 documented as of this encounter
--- OUTSIDE RECORDS SUMMARY | 2024-03-17 12:19 | XMS_ITS | Encounter Summary ---
Author Organization [facility] Address [address] [place] [address] Care Team Providers Care Delinquency Prevention Officer Name Role Phone Jennifer Ordoñez MAY Primary Care Provider + Reason for Visit * Reason Comments Follow-up 1mo f/u wound check Encounter Details Date Type Department Care Team (Late st Contact Info) Description 10/06/2018 10:00 EDT Office Visit [facility] General Surgery - [address] [address] Ryan Ruiz MD [address] [place] [address], Level 5 [place] [address] Encounter for post surgical wound check (Primary Dx) Social History Tobacco Use Types Packs/Day Years Used Date Smoking Tobacco: Every Day Cigarettes 1 40 Smokeless Tobacco: Never Tobacco Cessation:Ready to Q uit: Yes Alcohol Use Standard Drinks/Week Comments No 0 [...] Notes * Ryan Ruiz MD, MD - 10/06/2018 1000 EDT Subjective: Patient ID: Zaira Collins is an 63 y.o. female. Chief Complaint Patient presents with ??? Follow-up 1mo f/u wound check HPI Cynthia is here in follow-up. I saw her last month and her perianal wound from her removal of her anus in March had developed aopening at the posterior aspect. When I probed that there was a deep cavity. I was able to open thewound up in the office and asked her to bathe with her hand-held shower head aimed at the wound every day. She has been doing that. The visiting nurses have been coming every week and have been probin g the wound and state that it is shallow. However she sees a fair amount of blood in the days afterthey probe it. She denies any pain, fevers or chills. Patient Active Problem List [...] stones ??? 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 Tachycardia rx with [...] Take 60 mg by mouth daily. ??? ergocalciferol (DRISDOL; VITAMIN D2) 50,000 unit capsule Take 50,000 Units by mouth every 7 days. ??? estradiol (VIVELLE) 0.025 mg/24 hr patch [...] Allergies Allergen Reactions ??? Chantix [Varenicline] SEISURES Review of Systems Constitutional: Negative for chills, fever and weight loss. Respiratory: Negative for shortness of breath. Cardiovascular: Negative for chest pain and palpitations. Gastrointestinal: Negative for abdominal pain and blood in stool. Endo/Heme/Allergies: Does not bruise/bleed easily. - See HPI Objective: There were no vitals taken for this visit. Physical Exam Constitutional: She is oriented to person, place, and time. She appears well- developed and well-nourished. No distress. Eyes: Pupils are equal, round, and reactive to light. No scleral icterus. Cardiovascular: Normal rate and regular rhythm. No murmur heard. Pulmonary/Chest: Effort normal and breath sounds normal. No respiratory distress. Abdominal: Soft. She exhibits no distension and no mass. There is no tenderness. Ileostomy in place Genitourinary: Genitourinary Comments: The anterior aspect of the perianal wound has completely healed in. In the posterior aspect there is a small opening that tracks posteriorly and cephalad for about a centimeter in either direction. At the very posterior aspect of the scar there is another small opening that does not admit the passage of a hemostat. Musculoskeletal: Normal range of motion. She exhibits no edema. Neurological: She is alert and oriented to person, place, and time. Skin: Skin is warm and dry. No rash noted. No pallor. Psychiatric: Her behavior is normal. Judgment normal. Assessment: She has a small chronic cavity that continues to drain and my concern is that the skin will heal over and things will abscess and remain quite symptomatic. I tried opening it in the office and that failed to allow things to heal. I think she needs operative debridement of the wound and removal of the granulation tissue to allow it to heal and finally. Plan: We will plan on doing this as an outpatient under Local with IV sedation at the [facility]. (Z48.89) Encounter for post surgical wound check (primary encounter diagnosis) Plan: STATUS: OUTPATIENT SURGICAL OP BED/SERVICES, PLACE SEQUENTIAL COMPRESSION DEVICE, INSERT PERIPHERAL IV, lactated ringers (LR) infusion, TREATMENT/INTERVENTION - MISCELLANEOUS, NURSING COMMUNICATION, NURSING COMMUNICATION, NURSING COMMUNICATION, NURSING COMMUNICATION, NURSING COMMUNICATION, NURSING COMMUNICATION Ryan Ruiz MD No orders of the defined types were placed in this encounter. documented in this encounter Plan of Treatment Upcoming Encounters Date Type Department Care Team (Late st Contact Info) Description 04/07/2024 9:00 EST Office Visit [facility] Endocrinology - [facility] [address] [place] [address] Vincenzo Rawls MD [address] [place] [address] [address] [place] [address] 08/22/2024 15:30 EDT Telemedicine [facility] Nephrology - [address] [address] Jose L Whitley MD 1 [facility], [address] [place] [phone] documented as of this encounter Visit Diagnoses Diagnosis Encounter for post surgical wound check- Primary documented in this encounter Care Teams Delinquency Prevention Officer Relationship Specialty Start Date End Date Jennifer Ordoñez APRN [address] [place] [phone] PCP - General 03/22/18 07/06/22 documented as of this encounter
--- OUTSIDE RECORDS SUMMARY | 2024-03-17 12:19 | XMS_ITS | Encounter Summary ---
Author Organization [facility] Address [address] [place] [address] Care Team Providers Care Rotational Moulding Operator Name Role Phone Jennifer Ordoñez MAY Primary Care Provider + Reason for Visit * Reason Onset Date Comments Appointment Related 10/07/2019 Encounter Details Date Type Department Care Team (Late st Contact Info) Description 10/07/2019 Telephone [facility] Nephrology - [address] [phone] Brii Chavez RN Appointment Related Social History Tobacco Use Types [...] encounter Miscellaneous Notes * Telephone Encounter - Brii Chavez RN - 10/07/2019 0947 EDT Patient has not had lab work drawn as reminded two weeks ago. Phone call to patient. Left brief reminder on unidentified phone requesting lab work be drawn if possible prior to appointment, documented in this encounter Plan of Treatment Upcoming Encounters Date Type Department Care Team (Late st Contact Info) Description 04/07/2024 9:00 EST Office Visit [facility] Endocrinology - [address] [address] Vincenzo Rawls MD [address] [place] [address] [address] [place] [address] 08/22/2024 15:30 EDT Telemedicine [facility] Nephrology - [address] [phone] Jose L Whitley MD [address] [place] [address], [address] [place] [phone] documented as of this encounter Visit Diagnoses Not on filedocumented in this encounter Care Teams Rotational Moulding Operator Relationship Specialty Start Date End Date Jennifer Ordoñez, BODY SERVICE TEAM MEMBER [address] [place] [phone] PCP - General 03/22/18 07/06/22 documented as of this encounter
--- OUTSIDE RECORDS SUMMARY | 2024-03-17 12:19 | XMS_ITS | Encounter Summary ---
Author Organization [facility] Address [address] [place] [address] Care Team Providers Care Screw Machine Operator Swiss Type Name Role Phone Jennifer Ordoñez MAY Primary Care Provider + Encounter Details Date Type Department Care Team (Late st Contact Info) Description 02/11/2019 Abstract [facility] Nephrology - [address] [phone] Jose L Whitley MD 1 [facility], Level 2 [place] [address] Social History Tobacco Use Types [...] Info) Description 04/07/2024 9:00 EST Office Visit [facility] Endocrinology - [address] [phone] Vincenzo Rawls MD [address] [place] [address] [address] [place] [phone] 08/22/2024 15:30 EDT Telemedicine [facility] Nephrology - [address] [address] Jose L Whitley MD 1 [facility], Level [address] [place] [phone] documented as of this encounter Procedures Procedure Name Priority Date/Time Associated Diagnosis Comments BASIC METABOLIC PANEL (BMP) Routine 02/03/2019 COMPLETE BLOOD COUNT Routine 01/18/2019 COMPREHENSIVE METABOLIC PANEL (CMP) Routine 01/18/2019 documented in this encounter Results * BASIC METABOLIC PANEL (BMP) (02/03/2019) GFR, Calculated, External 32.90 EXTERNAL LAB Glucose, Serum, External 102 EXTERNAL LAB Calculated Calcium, External EXTERNAL LAB BUN, External 20 EXTERNAL LAB Calcium, External 9.5 EXTERNAL LAB Chloride, External 94 EXTERNAL LAB CO2, External 34.6 EXTERNAL LAB Creatinine, External 1.59 EXTERNAL LAB Fasting?, External EXTERNAL LAB Potassium, External 3.3 EXTERNAL LAB Sodium, External 137 EXTERNAL LAB Blood VENOUS BLOOD / Unknown 02/03/2019 Result [facility] Historical Provider CHEMISTRY & BLOOD GAS ORD ERABLES Final Result EXTERNAL LAB * COMPREHENSIVE METABOLIC PANEL (CMP) (01/18/2019) GFR, Calculated, External 27 EXTERNAL LAB Glucose, Serum, External 95 EXTERNAL LAB Albumin, External 4.5 EXTERNAL LAB Total Alkaline Phosphatase, External 226 EXTERNAL LAB ALT, External 25 EXTERNAL LAB AST, External 27 EXTERNAL LAB BUN, External 13 EXTERNAL LAB Calculated Calcium, External EXTERNAL LAB Calcium, External 9.8 EXTERNAL LAB Chloride, External 101 EXTERNAL LAB CO2, External 21 EXTERNAL LAB Creatinine, External 1.88 EXTERNAL LAB Fasting?, External EXTERNAL LAB Potassium, External 3.8 EXTERNAL LAB Sodium, External 137 EXTERNAL LAB Total Protein, External 9.4 EXTERNAL LAB Bilirubin, Total, External 0.4 EXTERNAL LAB Blood VENOUS BLOOD / Unknown 01/18/2019 Result [facility] Historical Provider CHEMISTRY & BLOOD GAS ORD ERABLES Final Result EXTERNAL LAB * COMPLETE BLOOD COUNT (01/18/2019) HCT, External 46 EXTERNAL LAB MCH, External 32.7 EXTERNAL LAB MCV, External 98 EXTERNAL LAB MCHC, External EXTERNAL LAB Hemoglobin, External 15.4 EXTERNAL LAB WBC, External 10.35 EXTERNAL LAB RBC, External 4.71 EXTERNAL LAB PLT, External 416 EXTERNAL LAB RDW-CV, External EXTERNAL LAB Blood VENOUS BLOOD / Unknown 01/18/2019 us Historical Provider HEMATOLOGY & PF4 ORDERABL ES Final Result EXTERNAL LAB documented in this encounter Visit Diagnoses Not on filedocumented in this encounter Care Teams Screw Machine Operator Swiss Type Relationship Specialty Start Date End Date Jennifer Ordoñez, DUMPING MACHINE OPERATOR [address] [place] [address] PCP - General 03/22/18 07/06/22 documented as of this encounter
--- OUTSIDE RECORDS SUMMARY | 2024-03-17 12:19 | XMS_ITS | Encounter Summary ---
Author Organization [facility] Address [address] [place] [address] Care Team Providers Care Director Of Religious Activities Name Role Phone Jennifer Ordoñez MAY Primary Care Provider + Encounter Details Date Type Department Care Team (Late st Contact Info) Description 09/23/2019 Orders Only [facility] Nephrology - [address] [phone] Jose L Whitley MD 1 [facility], Level 2 [place] [address] Acute renal failure, unspecified acute [...] Info) Description 04/07/2024 9:00 EST Office Visit [facility] Endocrinology - [address] [address] Vincenzo Rawls MD 62 [facility] [address] [place] [address] 08/22/2024 15:30 EDT Telemedicine [facility] Nephrology - [facility] [address] [place], [place] [address] Jose L Whitley MD 1 [facility], Level 2 [place] [address] documented as of this encounter Visit Diagnoses Diagnosis Acute renal failure, unspecified acute renal failure type (HCC-CMS)- Primary documented in this encounter Care Teams Director Of Religious Activities Relationship Specialty Start Date End Date Jennifer Ordoñez APRN 4 [place] [address] PCP - General 03/22/18 07/06/22 documented as of this encounter
--- OUTSIDE RECORDS SUMMARY | 2024-03-17 12:19 | XMS_ITS | Encounter Summary ---
Author Organization [facility] Address [address] [place] [address] Care Team Providers Care Laborer Tin Can Name Role Phone Jennifer Ordoñez MAY Primary Care Provider + Encounter Details Date Type Department Care Team (Late st Contact Info) Description 12/13/2018 Phlebotomy Only [address] [address] Molded Parts Inspector, Outpatient Chronic kidney disease, stage III (moderate) ([facility]) (Primary Dx) Social History Tobacco Use Types [...] Info) Description 04/07/2024 9:00 EST Office Visit [facility] Endocrinology - [address] [phone] Vincenzo Rawls MD [address] [place] [address] [address] [place] [address] 08/22/2024 15:30 EDT Telemedicine [facility] Nephrology - [address] [phone] Jose L Whitley MD [address] [place] [address] Rehab, Level [address] [place] [phone] documented as of this encounter Procedures Procedure Name Priority Date/Time Associated Diagnosis Comments PTH INTACT Routine 12/13/2018 10:57 EDT Chronic kidney disease, stage III (moderate) ([facility]) COMPLETE BLOOD COUNT Routine 12/13/2018 10:57 EDT Chronic kidney disease, stage III (moderate) ([facility]) PHOSPHORUS Routine 12/13/2018 10:57 EDT Chronic kidney disease, stage III (moderate) ([facility]) BASIC METABOLIC PANEL (BMP) Routine 12/13/2018 10:57 EDT Chronic kidney disease, stage III (moderate) ([facility]) documented in this encounter Results * (ABNORMAL) BASIC METABOLIC PANEL (BMP) (12/13/2018 10:57 EDT) Sodium 139 136 - 145 mEq/L 12/13/2018 12:49 [facility] Potassium 4.7 3.5 - 5.0 mEq/L 12/13/2018 12:49 [facility] Chloride 105 96 - 110 mEq/L 12/13/2018 12:49 [facility] CO2 23 22 - 32 mEq/L 12/13/2018 12:49 [facility] BUN 29(H) 10 - 26 mg/dl 12/13/2018 12:49 [facility] Creatinine 1.38(H) 0.52 - 1.04 mg/dl 12/13/2018 12:49 [facility] GFR, Calculated 41(L) >60 ml/min/1.7 3m2 12/13/2018 12:49 [facility] Comment: eGFR calculated using CKD-EPI equation for non Americans. Multiply eGFR by 1.16 for Americans. Calcium 9.7 8.5 - 10.5 mg/dl 12/13/2018 12:49 [facility] Calculated Calcium 9.2 8.5 - 10.5 mg/dl 12/13/2018 12:49 [facility] Glucose, Serum 87 70 - 100 mg/dl 12/13/2018 12:49 [facility] Fasting? No 12/13/2018 10:53 [facility] Blood specimen (specimen) BLOOD SPECIMEN / Unknown 12/13/2018 10:57 EDT 12/13/2018 12:14 EDT Jose L Whitley MD CHEMISTRY & BLOOD GAS ORDERA BLES Final Result [facility] [address] [place] [address] * PHOSPHORUS (12/13/2018 10:57 EDT) Phosphorus 4.0 2.5 - 4.5 mg/dl 12/13/2018 12:49 EDT [facility] Blood specimen (specimen) BLOOD SPECIMEN / Unknown 12/13/2018 10:57 EDT 12/13/2018 12:14 EDT Jose L Whitley MD CHEMISTRY & BLOOD GAS ORDERA BLES Final Result Performing Organization Address [facility] Co de Phone Number [facility] [address] [place] [address] * (ABNORMAL) PTH INTACT (12/13/2018 10:57 EDT) PTH 129(H) 19 - 88 pg/ml 12/13/2018 13:23 EDT [facility] Comment:Reference range base d on normal calcium level. Blood specimen (specimen) BLOOD SPECIMEN / Unknown 12/13/2018 10:57 EDT 12/13/2018 12:14 EDT Jose L Whitley MD CHEMISTRY & BLOOD GAS ORDERA BLES Final Result Performing Organization Address [facility] Co de Phone Number [facility] [address] [place] [address] * COMPLETE BLOOD COUNT (12/13/2018 10:57 EDT) WBC 7.66 4.0 - 12.4 K/cmm 12/13/2018 12:24 EDT [facility] RBC 4.03 3.86 - 5.04 M/cmm 12/13/2018 12:24 EDT [facility] Hemoglobin 12.9 11.6 - 15.2 gm/dl 12/13/2018 12:24 EDT [facility] HCT 39.5 34.9 - 44.4 % 12/13/2018 12:24 EDT [facility] MCV 98 81 - 98 fl 12/13/2018 12:24 EDT [facility] MCH 32.0 26.7 - 33.3 pg 12/13/2018 12:24 EDT [facility] MCHC 32.7 32.1 - 35.9 gm/dl 12/13/2018 12:24 EDT [facility] RDW-CV 13.1 <14.7 % 12/13/2018 12:24 EDT [facility] RDW-SD 46.5 <50.4 fl 12/13/2018 12:24 EDT [facility] PLT 371 141 - 377 K/cmm 12/13/2018 12:24 EDT [facility] MPV 10.0 9.5 - 12.7 ny 12/13/2018 12:24 EDT [facility] Blood specimen (specimen) BLOOD SPECIMEN / Unknown 12/13/2018 10:57 EDT 12/13/2018 12:14 EDT us Jose L Whitley MD HEMATOLOGY & PF4 ORDERABLES Final Result [facility] [address] [place] [address] documented in this encounter Visit Diagnoses Diagnosis Chronic kidney disease, stage III (moderate) ([facility])- Primary Chronic kidney disease, Stage III (moderate) documented in this encounter Orders Lab Orders Without Results Count Last Ordered D ate First Ordered Date BASIC METABOLIC PANEL (BMP) 1 12/13/2018 documented in this encounter Care Teams Laborer Tin Can Relationship Specialty Start Date End Date Jennifer Ordoñez, STAFF TRAINER [address] [place] [phone] PCP - General 03/22/18 07/06/22 documented as of this encounter
--- OUTSIDE RECORDS SUMMARY | 2024-03-17 12:19 | XMS_ITS | Encounter Summary ---
Author Organization [facility] Address [address] [place] [address] Care Team Providers Care Lead Database Developer Name Role Phone Jennifer Ordoñez MAY Primary Care Provider + Reason for Visit * Reason Comments Chronic Kidney Disease She was seen in J an2018 for CKD with fluctuating creatinine thought to be dependent on her state of hydration complicating Crohn's disease and draining ileostomy. Other Perineal completion proctectomy was completed 04-15-18 and the healing continues. Otherwise, she feels generally well. Dehydration She gets in to the o utpatient clinic to get IVF thera[py when she feels weak, dry mouth etc. Other She recently ran out of sodium bicarbonate tablets refills but this has been resolved. Encounter Details Date Type Department Care Team (Late st Contact Info) Description 12/13/2018 10:10 EDT Office Visit [facility] Nephrology - [address] [phone] Jose L [facility] Level 2 [place] [address] Chronic kidney disease, stage III (moderate) ([facility]) (Primary Dx) Discharge Disposition: Auto Discharge Social History Tobacco Use Types Packs/Day Years [...] Sign Reading Time Taken Comments Blood Pressure 125/69 12/13/2018 1002 EDT Pulse 75 12/13/2018 1002 EDT Temperature - - Respiratory Rate - - Oxygen Saturation - - Inhaled Oxygen Concentration - - Weight 44.9 kg (99 lb) 12/13/2018 1002 EDT Height 149.9 cm (4' 11) 12/13/2018 1002 EDT Body Mass Index 20 12/13/2018 [facility] EDT documented in this encounter Functional Status [...] Monique RN documented in this encounter Discharge Diagnoses Diagnosis N18.3 Chronic kidney disease, stage 3 (moderate)-N18.3[ICD-10-CM] documented in this encounter Patient Instructions * Patient Instructions* [place], Jose L MD, MD - 12/13/2018 10:10 EDT Blood tests today. Then BMP test every 2 months. RTC in 6 months. documented in this encounter Discharge Disposition Disposition Code Departure Means Destination Auto Discharge documented in this encounter Progress Notes * Jose L Whitley MD, MD - 12/13/2018 1010 EDT NEPHROLOGY OFFICE FOLLOW UP VISIT NOTE SUBJECTIVE Eight months' follow up on CKD associated with complicated Crohn's Disease with ileotomy and proneness to dehydration. 12/13/2018 Chief Complaint Patient presents with ??? Chronic Kidney Disease She was seen in March 2018 for CKD with fluctuating creatinine thought to be dependent on her state of hydration complicating Crohn's disease and draining ileostomy. ??? Other Perineal completion proctectomy was completed 04-15-18 and the healing continues. Otherwise, she feels generally well. ??? Dehydration She gets in to the outpatient clinic to get IVF thera[py when she feels weak, dry mouth etc. ??? Other She recently ran outof sodium bicarbonate tablets refills but this has been resolved. HPI As above. The last time she had blood tests done was from April 2018. Patient Active Problem List Diagnosis ??? Chronic [...] stones ??? 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 Tachycardia rx with b-charu, asymptomatic Past Surgical History: Procedure Laterality Date ??? COLON SURGERY ??? HYSTERECTOMY ??? RECTAL SURGERY ??? SMALL INTESTINE SURGERY ??? TOTAL COLECTOMY Current Outpatient Medications: acetaminophen (TYLENOL) 325 mg tablet cyanocobalamin (VITAMIN B-12) 1,000 mcg/mL injection cyclobenzaprine (FLEXERIL) 10 mg tablet DULoxetine (CYMBALTA) 60 mg capsule ergocalciferol (DRISDOL; VITAMIN D2) 50,000 unit capsule ESTRADIOL ORAL FOLIC ACID ORAL magnesium oxide (MAG-OX) 400 mg tablet metoprolol (LOPRESSOR) 25 mg tablet ONDANSETRON HCL ORAL potassium chloride (MICRO-K) 10 mEq capsule sodium bicarbonate 650 mg tablet traMADol (ULTRAM) 50 mg tablet [...] except for pertinent positives in the HPI BP 125/69 (BP Cuff Location: Right arm, Patient Position: Sitting, BP Cuff Sizes: Adult, regular) Pulse 75 Ht (!) 149.9 cm (59) Wt (!) 44.9 kg (99 lb) BMI 20.00 kg/m?? General appearance: alert, cooperative, no distress, Reduced skin turgor consistent with dehydration. Head: Normocephalic, without obvious abnormality, atraumatic Lungs: clear to auscultation bilaterally Heart: S1, S2 normal, no rub Abdomen: Abdomen not distended - not temder. Neurologic: Grossly normal Mental Status: awake and alert; oriented to person, place, and time Extremities: No edma. Reduced skin turgor again noted. Jose L Whitley MD 12/13/2018 10:24 Lab Results Component Value Date K 3.4 (L) 04/16/2018 K 3.7 05/04/2008 NA 129 (L) 04/16/2018 NA 137 05/04/2008 CL 94 (L) 04/16/2018 CL 107 05/04/2008 CO2 27 04/16/2018 CO2 23 (L) 05/04/2008 TBIL <0.5 11/24/2007 AST 37 11/24/2007 ALT 20 11/24/2007 LABALBU 5.0 (H) 11/24/2007 TP 8.4 (H) 11/24/2007 CREATININE 1.76 (H) 04/16/2018 CREATININE 1.20 (H) 09/28/2013 CALCGFR 31 (L) 04/16/2018 CALCGFR 46 (L) 09/28/2013 CALCIUM 9.3 11/24/2007 CALCCA 8.7 11/24/2007 SERGLU 90 11/24/2007 Lab Results Component Value Date WBC 13.93 (H) 04/16/2018 WBC 6.03 09/28/2013 RBC 3.22 (L) 04/16/2018 RBC 3.99 09/28/2013 HGB 10.6 (L) 04/16/2018 HGB 13.6 09/28/2013 HCT 31.2 (L) 04/16/2018 HCT 38.8 09/28/2013 MCV 97 04/16/2018 MCV 97 09/28/2013 MCH 32.9 04/16/2018 MCH 34.1 (H) 09/28/2013 MCHC 34.0 04/16/2018 MCHC 35.1 09/28/2013 RDWCV 12.4 04/16/2018 RDWCV 12.9 09/28/2013 RDWSD 44.3 04/16/2018 PLT 281 04/16/2018 PLT 240 09/28/2013 No results found for: WBCU, RBCU, SQUAEPIU, RENEPIU, BACTERIA, CRYST, LABCAST, UACOMMENT, COMUAUCMI No results found for: COLOR, CLARITYU, GLUCOSEU, BILIRUBINUR, KETONES, LABSPEC, BLOODU, PHUR, PROTEINUA, UROBILINOGEN, NITRITE, LEUKESTER ASSESSMENT & PLAN CKD complicating Crohn's Disease with ileotomy and proneness to dehydration. Daily weights at home will be helpful to assess state of hydration. To get BMP, magnesium, phosphorus , CBC and PTH today here - ordered. Then BMP every 2 months starting in January 2019. documented in this encounter Plan of Treatment Upcoming Encounters Date Type Department Care Team (Late st Contact Info) Description 04/07/2024 9:00 EST Office Visit [facility] Endocrinology - [facility] [address] [place] [address] Vincenzo Rawls MD 62 [facility] [address] [place] [address] 08/22/2024 15:30 EDT Telemedicine [facility] Nephrology - [address] [phone] Jose L Whitley MD 1 [facility], Level [address] [place] [phone] documented as of this encounter Results * COMPLETE BLOOD COUNT (12/13/2018 10:57 EDT) WBC 7.66 4.0 - 12.4 K/cmm 12/13/2018 12:[address] [facility] RBC 4.03 3.86 - 5.04 M/cmm 12/13/2018 12:[address] [facility] Hemoglobin 12.9 11.6 - 15.2 gm/dl 12/13/2018 12:[address] [facility] HCT 39.5 34.9 - 44.4 % 12/13/2018 12:[address] [facility] MCV 98 81 - 98 fl 12/13/2018 12:[address] [facility] MCH 32.0 26.7 - 33.3 pg 12/13/2018 12:[address] [facility] MCHC 32.7 32.1 - 35.9 gm/dl 12/13/2018 12:[address] [facility] RDW-CV 13.1 <14.7 % 12/13/2018 12:[address] [facility] RDW-SD 46.5 <50.4 fl 12/13/2018 12:[address] [facility] PLT 371 141 - 377 K/cmm 12/13/2018 12:[address] [facility] MPV 10.0 9.5 - 12.7 fl 12/13/2018 12:[address] [facility] Blood specimen (specimen) BLOOD SPECIMEN / Unknown 12/13/2018 10:57 EDT 12/13/2018 12:14 EDT us Jose L Whitley MD HEMATOLOGY & PF4 ORDERABLES Final Result Performing Organization Address [facility] Co de Phone Number [facility] [address] [place] [address] * (ABNORMAL) PTH INTACT (12/13/2018 10:57 EDT) PTH 129(H) 19 - 88 pg/ml 12/13/2018 13:[address] [facility] Comment:Reference range base d on normal calcium level. Blood specimen (specimen) BLOOD SPECIMEN / Unknown 12/13/2018 10:57 EDT 12/13/2018 12:14 EDT us Jose L Whitley MD CHEMISTRY & BLOOD GAS ORDERA BLES Final Result [facility] [address] [place] [address] * PHOSPHORUS (12/13/2018 10:57 EDT) Phosphorus 4.0 2.5 - 4.5 mg/dl 12/13/2018 12:[address] [facility] Blood specimen (specimen) BLOOD SPECIMEN / Unknown 12/13/2018 10:57 EDT 12/13/2018 12:14 EDT us Jose L Whitley MD CHEMISTRY & BLOOD GAS ORDERA BLES Final Result [facility] [address] [place] [address] documented in this encounter Visit Diagnoses Diagnosis Chronic kidney disease, stage III (moderate) ([facility] Primary Chronic kidney disease, Stage III (moderate) documented in this encounter Discontinued Medications Medication Sig Discontinue Reason Start Date End Da te ibuprofen (MOTRIN) 200 mg tablet Take 1 Tab by mouth every 6 hours. Please alternate taking with Tylenol so you are taking one or the other every three hours. Patient Stopped Taking 10/27/2018 12/13/2018 documented as of this encounter Historical Medications * This list may reflect changes made after this encounter. FOLIC ACID ORAL Take 1 Tab by mouth daily. traMADol (ULTRAM) 50 mg tablet Take 50 mg by mouth 2 times daily. 04/29/2023 added in this encounter Care Teams Lead Database Developer Relationship Specialty Start Date End Date Jennifer Ordoñez, CHIEF PETROLEUM ENGINEER [address] [place] [phone] PCP - General 03/22/18 07/06/22 documented as of this encounter
--- OUTSIDE RECORDS SUMMARY | 2024-03-17 12:19 | XMS_ITS | Encounter Summary ---
Author Organization [facility] Address [address] [place] [address] Care Team Providers Care Design/Animation Instructor Name Role Phone Jennifer Ordoñez MAY Primary Care Provider + Reason for Visit * Reason Onset Date Comments [facility] 12/29/2018 Encounter Details Date Type Department Care Team (Late st Contact Info) Description 12/29/2018 Telephone [facility] General Surgery - [address] [phone] Ryan Ruiz MD [address] [place] [address], [address] [place] [address] [facility] Social History Tobacco Use Types Packs/Day Years [...] encounter Miscellaneous Notes * Telephone Encounter - Delilah Shaw - 12/29/2018 0923 EDT FYI, patient discharged from [facility] services. documented in this encounter Plan of Treatment Upcoming Encounters Date Type Department Care Team (Late st Contact Info) Description 04/07/2024 9:00 EST Office Visit [facility] Endocrinology - [address] [phone] Vincenzo Rawls MD 62 [facility] [address] [place] [address] 08/22/2024 15:30 EDT Telemedicine [facility] Nephrology - [address] [phone] Jose L Whitley MD [address] [place], [place] [address], [address] [place] [phone] documented as of this encounter Visit Diagnoses Not on filedocumented in this encounter Care Teams Design/Animation Instructor Relationship Specialty Start Date End Date Jennifer Ordoñez APRN [address] [place] [phone] PCP - General 03/22/18 07/06/22 documented as of this encounter
--- OUTSIDE RECORDS SUMMARY | 2024-03-17 12:19 | XMS_ITS | Encounter Summary ---
Author Organization [facility] Address [address] [place] [address] Care Team Providers Care Mounter Hand Name Role Phone Jennifer Ordoñez MAY Primary Care Provider + Reason for Visit * Reason Onset Date Comments Results 09/23/2019 Labs Only 09/23/2019 Encounter Details Date Type Department Care Team (Late st Contact Info) Description 09/23/[address] [facility] Nephrology - [address] [phone] Brii Chavez RN Results; Labs Only Social History Tobacco Use Types Packs/Day Years [...] encounter Miscellaneous Notes * Telephone Encounter - Abbie Howell RN - 09/23/2019 1524 EDT LMOM detailed on pt's machine to repeat labs. Orders sent to [facility] * Telephone Encounter - Brii Chavez RN - 09/23/2019 1522 EDT Left brief messge on phone requesting patient get repeat lab work next week and to call Nephrology clinic with any questions. * Telephone Encounter - Brii Chavez RN - 09/23/2019 1521 EDT ----- Message from Jose L Whitley MD sent at 09/23/2019 14:36 EDT ----- Worsening renal failure. I have ordered a repeat BMP for next week. Mac documented in this encounter Plan of Treatment Upcoming Encounters Date Type Department Care Team (Late st Contact Info) Description 04/07/2024 9:00 EST Office Visit [facility] Endocrinology - [place] [address] [place], [place] [phone] Vincenzo Rawls MD 62 [facility] [address] [place] [address] 08/22/2024 15:30 EDT Telemedicine [facility] Nephrology - [facility] [address] [place], [place] [phone] Jose L Whitley MD 1 [facility], Level [address] [place] [phone] documented as of this encounter Visit Diagnoses Not on filedocumented in this encounter Care Teams Mounter Hand Relationship Specialty Start Date End Date Jennifer Ordoñez APRN 4 [facility] [place] [phone] PCP - General 03/22/18 07/06/22 documented as of this encounter
--- OUTSIDE RECORDS SUMMARY | 2024-03-17 12:19 | XMS_ITS | Encounter Summary ---
Author Organization [facility] Address [address] [place] [address] Care Team Providers Care Cocoa Bean Roaster Helper Name Role Phone Jennifer Ordoñez APRN Primary Care Provider + Lynn Saavedra MD Primary Care Provider Chary Ordoñez Primary Care Provider [phone] Encounter Details Date Type Department Care Team (Late st Contact Info) Description 03/08/2020 Lab Requisition [facility] Pathology & Laboratory Medicine - [address] [address] Outr Resulting Lab, Provider Social History Tobacco Use Types Packs/Day Years Used Date Smoking Tobacco: Never Assessed Interpersonal Safety Answer Date Record ed Physically [...] Info) Description 04/07/2024 9:00 EST Office Visit [facility] Endocrinology - [address] [phone] Vincenzo Rawls MD [address] [place] [address] [address] [place] [phone] 08/22/2024 15:30 EDT Telemedicine [facility] Nephrology - [address] [address] Jose L Whitley MD [address] [place] [address], [address] [place] [phone] documented as of this encounter Procedures Procedure Name Priority Date/Time Associated Diagnosis Comments ZZCOVID-19 TEST [facility] PCR Today 03/07/2020 16:00 EST COVID-19 TESTING Routine 03/07/2020 16:0 0 EST documented in this encounter Results * COVID-19 TEST [facility] PCR (03/07/2020 16:00 EST) Swab ENTIRE NASOPHARYNX / Unknown 03/07/2020 16:00 EST 03/08/2020 18:41 EST us Provider Outr Resulting Lab MICROBIOLOGY - GENER AL ORDERABLES Final Result Performing Organization Address [facility] Co de Phone Number [facility] [address] [place] [address] * COVID-19 TESTING (03/07/2020 16:00 EST) COVID-19 rt-PCR Result Negative Negative 03/08/2020 23:53 EST [facility] Comment: This test has [...] clinical observations, patient history, and epidemiological information. Performed on the TrueMotion Spineher Fusion instrument Performing Lab [place] [facility] Lab 03/08/2020 23:53 EST [facility] Swab 03/07/2020 16:0 0 EST 03/08/2020 18:41 EST us Provider Outr Resulting Lab MICROBIOLOGY - GENER AL ORDERABLES Final Result Performing Organization Address City/[facility]/ZIP Co de Phone Number [facility] [address] [place] [address] documented in this encounter Visit Diagnoses Not on filedocumented in this encounter Care Teams Cocoa Bean Roaster Helper Relationship Specialty Start Date End Date Jennifer Ordoñez, KNIFE SETTER [address] [place] [address] PCP - General 03/22/18 07/06/22 Lynn Saavedra MD [address] [place] [place] [address] PCP - General 07/07/22 04/26/23 Chary Ordoñez [address] [address] PCP - General Family Medicine - Primary Care 04/27/23 documented as of this encounter
--- OUTSIDE RECORDS SUMMARY | 2024-03-17 12:19 | XMS_ITS | Encounter Summary ---
Author Organization [facility] Address [address] [place] [address] Care Team Providers Care Overedge Machine Operator Name Role Phone Jennifer Ordoñez MAY Primary Care Provider + Reason for Visit * Reason Onset Date Comments Appointment Related 04/26/2019 Encounter Details Date Type Department Care Team (Late st Contact Info) Description 04/26/2019 Telephone [facility] Adult Neurology - [place] [address] [place] [address] Neurology 2c, Resident Appointment Related Social History Tobacco Use Types [...] of Assessment Author No 04/16/2018 12:00 EST Karon, Sa rah, RN * Do you have serious difficulty [...] encounter Miscellaneous Notes * Telephone Encounter - Benedict Starkey - 04/26/2019 1239 EST LMOM to schedule NPV with residents documented in this encounter Plan of Treatment Upcoming Encounters Date Type Department Care Team (Late st Contact Info) Description 04/07/2024 9:00 EST Office Visit [facility] Endocrinology - [address] [phone] Vincenzo Rawls MD [address] [place] [address] [address] [place] [address] 08/22/2024 15:30 EDT Telemedicine [facility] Nephrology - [address] [phone] Jose L Whitley MD [address] [place] [address], [address] [place] [address] documented as of this encounter Visit Diagnoses Not on filedocumented in this encounter Care Teams Overedge Machine Operator Relationship Specialty Start Date End Date Jennifer Ordoñez APRN [address] [place] [phone] PCP - General 03/22/18 07/06/22 documented as of this encounter
--- OUTSIDE RECORDS SUMMARY | 2024-03-17 12:19 | XMS_ITS | Encounter Summary ---
Author Organization [facility] Address [address] [place] [address] Care Team Providers Care Grease And Tallow Pumper Name Role Phone Jennifer Ordoñez MAY Primary Care Provider + Reason for Visit * Reason Onset Date Comments Appointment Related 05/16/2019 Encounter Details Date Type Department Care Team (Late st Contact Info) Description 05/16/2019 Telephone [facility] Adult Neurology - [facility] [address] [place], [place] [phone] Unknown, Provider, Appointment Related Social History Tobacco Use Types [...] encounter Miscellaneous Notes * Telephone Encounter - Lynn Cheng MA - 05/16/2019 1113 EST Returned call to Jackie (name written incorrectly below) and advised that we do not have availability at this time for NPV, but that Resident schedules should be built for September and beyond within the next couple of weeks and we will reach out to patient then to schedule. Jackie said she will let patient's PCP know. * Telephone Encounter - Nancy Carey - 05/16/2019 1104 EST Kelly from [facility] calling for appt for patient. Advised they currently do no have availability but would send her information on to that team for a call back. She can be reached at [phone], ext [phone] documented in this encounter Plan of Treatment Upcoming Encounters Date Type Department Care Team (Late st Contact Info) Description 04/07/2024 9:00 EST Office Visit [facility] Endocrinology - [facility] [address] [place], [place] [phone] Vincenzo Rawls MD 62 [facility] [address] [place] [phone] 08/22/2024 15:30 EDT Telemedicine [facility] Nephrology - [facility] [place] [address] [place], [place] [address] Jose L Whitley MD 1 [facility] [address] [place] [phone] documented as of this encounter Visit Diagnoses Not on filedocumented in this encounter Care Teams Grease And Tallow Pumper Relationship Specialty Start Date End Date Jennifer Ordoñez, SENIOR JAVASCRIPT DEVELOPER [address] [place] [phone] PCP - General 03/22/18 07/06/22 documented as of this encounter
--- OUTSIDE RECORDS SUMMARY | 2024-03-17 12:19 | XMS_ITS | Encounter Summary ---
Author Organization [facility] Address [address] [place] [address] Care Team Providers Care Roofing Applicator Name Role Phone Jennifer Ordoñez MAY Primary Care Provider + Reason for Visit * Reason Onset Date Comments Appointment Related 03/14/2020 Encounter Details Date Type Department Care Team (Late st Contact Info) Description 03/14/2020 Telephone [facility] Nephrology - [address] [address] Jose L Whitley MD [address] [place] [address], [address] [place] [address] Appointment Related Social History Tobacco [...] * Telephone Encounter - Fritz Acevedo - 03/21/2020 0936 EST 3rd attempt to schedule sent letter * Telephone Encounter - Fritz Acevedo - 03/20/2020 0932 EST 2nd attempt to schedule - LMOM * Telephone Encounter - Fritz Acevedo - 03/15/2020 0939 EST LMOM to schedule f/u apt * Telephone Encounter - Ree Bhandari - 03/14/2020 1551 EST PCP office calling hoping for the pt to be seen again. Will send over recent notes and labs documented in this encounter Plan of Treatment Upcoming Encounters Date Type Department Care Team (Late st Contact Info) Description 04/07/2024 9:00 EST Office Visit [facility] Endocrinology - [facility] [address] [place] [address] Vincenzo Rawls MD [address] [facility] [address] [place] [address] 08/22/2024 15:30 EDT Telemedicine [facility] Nephrology - [facility] 1 [place], [place] [address] Jose L Whitley MD 1 [facility], [address] [place] [phone] documented as of this encounter Visit Diagnoses Not on filedocumented in this encounter Care Teams Roofing Applicator Relationship Specialty Start Date End Date Jennifer Ordoñez, MAY 4 [facility] [place] [address] PCP - General 03/22/18 07/06/22 documented as of this encounter
--- OUTSIDE RECORDS SUMMARY | 2024-03-17 12:19 | XMS_ITS | Encounter Summary ---
Author Organization [facility] Address [address] [place] [address] Care Team Providers Care Wire Products Inspector Name Role Phone Jennifer Ordoñez APRN Primary Care Provider + Reason for Referral * Referral (Other (Specify in Question)) - Closed Specialty Diagnoses / Procedures Referred By Savannah ware Referred To Contact Diagnoses Postop check Hx of Crohn's disease Ryan Ruiz MD Phone: tel: fax: [facility] [address] Phone: tel: fax: Referral ID Status Reason Start Date Expiration Date V isits Requested Visits Authorized [id number] Closed Specialty Services Required 05/05/2018 1 1 Question Answer I certify that this patient is under my care and that I, or another Medicare allowed practitioner (DO OSWALDO, JUAN) working with me, had a [id number] encounter with this patient on this date: 05/05/2018 I further certify that the [id number] encounter was in whole or in part related to the reason the patient needs home health care. Yes The discharge summary or progress note will provide further details that support the need for the home health services and the plan of care. Yes Enter the allowed practitioner (MD, DO, JUAN) who will provide oversight of this patient's home heatlh care needs and plan of care Ryan Ruiz MD The patient? s homebound status is related to the following diagnoses, illness or condition (describe): perineal wound dressing s/p The patient has a condition due to an illness or injury that restricts the ability to leave home except with: The assistance or supervision of another person Leaving the home is medically contraindicated due to (reason 1): Not medically contraindicated, but needs assistance as indicated above. Leaving home requires a considerable and taxing effort with mobility limited by the following (criteria 1): Post surgical or post procedure restrictions limit ambulation and activity Nursing skilled care requested: Nursing asessment, Nursing treatment, Wound care [facility] assessment needed related to this encounter: Wound, Ostomy or Incontinence Assessment Skilling Nursing Referral - Treatment: Other Please Specify: perineal wound needs to be lightly packed with 1/2 inch iodoform nugauze daily. Patient should prior to daily visit remove the packing and shower, using shower head to throughly rinse the wound. Care Home Referral - Wound Care: (Please include care and frequency.) Post Surgical Number of Wound/Dressing Sites: 1 Wound/Dressing Location Site 1 Perineum Wound/Dressing Orientation Site 1 Mid Dressing Type Site 1 Dry Cleanse Wound Site 1 Other Please Specify: patient to shower and use shower head to throughly rinse the wound prior to dressing change daily. Associated Medications Site 1 (Please make sure you also place separate order) Not Applicable Contact Layer Site 1 Packing, Other Please Specify: iodoforphor nugauze 1/2 inch lightly packed ( not tightly packed please) Type of Packing Impregnated with Iodorphor Middle Layer Site 1 Not Applicable Outside Layer Site 1 Jacy-Pad Adhesive Site 1 Not Applicable Scheduling Comments (optional ? describe specific scheduling needs if applicable): fresh dressing placed in the office today 05/05/18, will need home visit tomorrow 05/06/18 please. Reason for Visit * Reason Comments Post-OP Follow Up Removal of the anus and distal rectum via a perineal approach 04/15/18 * Follow Up (Other (Specify in Question)) - Closed Specialty Diagnoses / Procedures Referred By Savannah t Referred To Contact General Surgery Diagnoses Crohn's disease with complication, unspecified gastrointestinal tract location ([facility]) Angelika Christensen NP Phone: tel: fax: [address] [address] Phone: tel: fax: Referral ID Status Reason Start Date Expiration Date V isits Requested Visits Authorized [id number] Closed Specialty Services Required 04/16/2018 1 1 Encounter Details Date Type Department Care Team (Late st Contact Info) Description 05/05/2018 11:15 EST Post-op Visit [address] [address] Ryan Ruiz MD [address] [place] [address], [facility] [address] [place] [address] Postop check (Primary Dx); Hx of Crohn's disease Social History Tobacco Use Types Packs/Day [...] this encounter Patient Instructions * Patient Instructions* Ryan Ruiz MD - 05/05/2018 11:[address] Ruiz will set up visiting nurses When the VNA nurse comes you should pull out the packing ribbon/strip. Get in the shower and use the shower head to shoot water up into the wound to clean it out. After the shower the VNA nurse will lightly repack about 6 inches of packing ribbon into the wound documented in this encounter Progress Notes * Ryan Ruiz MD - 05/05/2018 1115 EST FOLLOW UP OFFICE VISIT Today's date: 05/05/2018 Surgery: Removal of the anus on April 15 Subjective: She recovered well and went home on the first postoperative day. She returned 2 weeks ago and had some of her sutures removed and the anterior and posterior ones were left in place. She continues to have some drainage and some mild discomfort. She also still gets the sensation that she has to move her bowels. She denies any fevers or chills. Objective: There were no vitals taken for this visit. Physical exam: General Appearance: Looks well Abdomen: Not examined Incision(s)/Wound(s): The anterior and posterior aspects of the wound are approximated and the sutures were removed. The center of the wound has and there is a narrow cavity about 3 cm deep. There is no surrounding erythema or fluctuance. Path: Granulomatous inflammation Assessment/Plan: She has a separation of the wound with some mild infection but there is no evidence of any cellulitis that would require antibiotics. I think this will heal with wound care. I packedthe wound today and wrote out instructions for her and the VNA to use. She will return in 4 weeks for recheck. Ryan Ruiz MD 05/05/2018 14:45 documented in this encounter Plan of Treatment Upcoming Encounters Date Type Department Care Team (Late st Contact Info) Description 04/07/2024 9:00 EST Office Visit [facility] Endocrinology - [facility] [address] [place] [address] Vincenzo Rawls MD 62 [facility] [address] [place] [address] 08/22/2024 15:30 EDT Telemedicine [facility] Nephrology - [facility] [place] [address] [place], [place] [address] Jose L Whitley MD 1 [facility], Level [address] [place] [phone] Scheduled Referrals Name Type Priority Associated Diagnoses Orde r Schedule AMB CONS/FOLLOW UP HOME HEALTH SERVICES Outpatient Referral Routine Postop check Hx of Crohn's disease Ordered: 05/05/2018 documented as of this encounter Procedures Procedure Name Priority Date/Time Associated Diagnosis Comments ORDERS - SCANNED 07/06/2018 13:27 EDT documented in this encounter Results * ORDERS - SCANNED (07/06/2018 13:27 EDT) 07/06/2018 13:2 7 EDT us Scan 2 Institutional Cook ADMISSION ORDERABLES Final Result documented in this encounter Visit Diagnoses Diagnosis Postop check- Primary Follow-up examination, following unspecified surgery Hx of Crohn's disease Personal history of unspecified digestive disease documented in this encounter Care Teams Wire Products Inspector Relationship Specialty Start Date End Date Jennifer Ordoñez, WATER RESOURCE ENGINEER [address] [place] [place] [address] PCP - General 03/22/18 07/06/22 documented as of this encounter
--- OUTSIDE RECORDS SUMMARY | 2024-03-17 12:19 | XMS_ITS | Encounter Summary ---
Author Organization [facility] Address [address] [place] [address] Care Team Providers Care Clinical Education Academic Coordinator Name Role Phone Sondra Lala APRN Primary Care Provider + Reason for Referral * Follow Up (Other (Specify in Question)) - Closed Specialty Diagnoses / Procedures Referred By Contjosee t Referred To Contact General Surgery Diagnoses Crohn's disease with complication, unspecified gastrointestinal tract location (HCC-CMS) Angelika Christensen NP Phone: tel: fax: [facility] General Surgery - [address] [address] Phone: tel: fax: Referral ID Status Reason Start Date Expiration Date V isits Requested Visits Authorized [id number] Closed Specialty Services Required 04/16/2018 1 1 Question Answer Reason for Request: needs perineal sutures removed with nursing in 10 days from discharge Scheduling Comments (optional ? describe specific scheduling needs if applicable): 10 days from discharge Expected Discharge Date (Inpatient Only): 04/16/2018 * (Routine) - Receiving Office to Obtain Authorization Specialty Diagnoses / Procedures Referred By Contjosee t Referred To Contact Angelika Christensen NP Phone: tel: fax: Referral ID Status Reason Start Date Expiration Date Visits Requested Visits Authorized [id number] Receiving Office to Obtain Authorization Specialty Services Required 04/16/2018 1 1 Comments Please call the General Surgery clinic at to schedule a follow up with our nurses in 7-10 days to have your sutures removed. * (Routine) - Receiving Office to Obtain Authorization Specialty Diagnoses / Procedures Referred By Savannah t Referred To Contact Angelika Christensen NP Phone: tel: fax: Referral ID Status Reason Start Date Expiration Date Visits Requested Visits Authorized [id number] Receiving Office to Obtain Authorization Specialty Services Required 04/16/2018 1 1 Comments We are currently collecting quality data on patients having surgery. You may receive a phone call, email, and/or letter about your surgery asking you a series of follow up questions to evaluate specifics aspects of your care. Thank you for your participation. Encounter Details Date Type Department Care Team (Late st Contact Info) Description 04/15/2018 9:23 EST - 04/16/2018 12:41 EST Hospital Encounter [facility] General Surgery Unit [address] [place] [address] Krishna Ruiz MD [address] [place] [address] [address] [place] [id number] Crohn's disease with complication, unspecified gastrointestinal tract location ([facility]) Discharge Disposition: Home or Self Care Social [...] Sign Reading Time Taken Comments Blood Pressure 92/60 04/16/2018 1025 EST Pulse 74 04/16/2018 1025 EST Temperature 36.2 ??C (97.2 ??F) 04/16/2018 1025 EST Respiratory Rate 16 04/16/2018 1025 EST Oxygen Saturation 100% 04/16/2018 1025 EST Inhaled Oxygen Concentration - - Weight 46.2 kg (101 lb 13.6 oz) 04/16/2018 1200 EST Height 149.9 cm (4' 11.02) 04/16/2018 1200 EST Body Mass Index 20.56 04/16/2018 1200 EST documented in this encounter Functional Status [...] documented in this encounter Discharge Diagnoses Diagnosis K91.89 Other postprocedural complications and disorders of digestive system-K91.89[ICD-10-CM] K50.90 Crohn's disease, unspecified, without complications-K50.90[ICD-10-CM] Y83.6 Removal of other organ (partial) (total) as the cause of abnormal reaction of the patient, or of later complication, without mention of misadventure at the time of the procedure-Y83.6[ICD-10-CM] N18.3 Chronic kidney disease, stage 3 (moderate)-N18.3[ICD-10-CM] F32.9 Major depressive disorder, single episode, unspecified-F32.9[ICD-10-CM] Z90.49 Acquired absence of other specified parts of digestive tract-Z90.49[ICD-10-CM] M79.7 Fibromyalgia-M79.7[ICD-10-CM] R00.0 Tachycardia, unspecified-R00.0[ICD-10-CM] F17.210 Nicotine dependence, cigarettes, uncomplicated-F17.210[ICD-10-CM] documented in this encounter Discharge Summaries * Angelika Christensen Sasha, [employer] SUPERVISOR - 04/16/2018 1241 EST Surgery Discharge Summary Primary Care Provider: Sondra Lala Attending Physician: Krishna Ruiz MD Admit Date: 04/15/2018 Discharge Date: 04/16/2018 Disposition: Home or self care Problems and Procedures Admitting Diagnosis: Anal drainage Principal/Final Diagnosis: Anal drainage Additional Problems Managed in the Hospital Active Hospital Problems Diagnosis Date Noted ??? *Crohn's disease ([facility]) s/p colectomy and small bowel resections with ileostomy Resolved Hospital Problems No resolved problems to display. Principal Procedure: Perineal completion proctectomy Date: 04/15/2018 Secondary Procedures: none Hospital Course Zaira Collins was evaluated in the General Surgery clinic for anal drainage s/p proctocolectomy and was admitted on the day of surgery when an elective perineal completion proctectomy was performed without complication. She was recovered in PACU and transferred to the surgical floor for postoperative monitoring. An indwelling becerra catheter was removed and she had baseline return of urinary function. She remained hemodynamically stable and her pain was well managed throughout her stay. Her diet was advanced which she tolerated and had baseline return of bowel function via existing permanent ileostomy present on admission. She was discharged home to follow up in our clinic. Allergies and Immunizations Allergies Allergen Reactions ??? Chantix [Varenicline] SEISURES There is no immunization history on file for this patient. Transition of Care Plans Condition at Discharge Good Assessment at Discharge Vital signs: No data found. Results Pending at Discharge Test results still pending from this admission Procedure Component Value Units Date/Time Surgical Pathology [[id number]] Collected: 04/15/181803 Lab Status: In process Updated: 04/15/181804 Relevant Studies at Discharge None Last Lab Results at Discharge BUN: Lab Results Component Value Date BUN 38 (H) 04/16/2018 Creatinine: Lab Results Component Value Date CREATININE 1.76 (H) 04/16/2018 CBC: Lab Results Component Value Date WBC 13.93 (H) 04/16/2018 RBC 3.22 (L) 04/16/2018 HGB 10.6 (L) 04/16/2018 HCT 31.2 (L) 04/16/2018 MCV 97 04/16/2018 MCH 32.9 04/16/2018 MCHC 34.0 04/16/2018 PLT 281 04/16/2018 DIFFTYPE Automated 04/16/2018 Electrolytes: Lab Results Component Value Date NA 129 (L) 04/16/2018 K 3.4 (L) 04/16/2018 CL 94 (L) 04/16/2018 CO2 27 04/16/2018 Discharge Follow Up Future Appointments Date Time Provider Department Center 05/05/2018 11:15 Krishna Ruiz MD [facility] Gen Surg None 09/20/2018 10:30 Jose L Whitley MD Nephro None Angelika Christensen APRN 04/19/2018 11:51 Cosigned by Krishna Ruiz MD at 04/19/2018 14:17 EST documented in this encounter Medications at Time of Discharge cyanocobalamin (VITAMIN B12) 1,000 mcg/mL injection Inject 1 mL into the muscle every 28 days. DULoxetine (CYMBALTA) 30 mg delayed release capsule Take 1 Capsule by mouth daily. ONDANSETRON HCL ORAL Take 4 mg by mouth 3 times daily. potassium chloride (MICRO-K) 10 mEq capsule Take 2 Capsules by mouth daily. sodium bicarbonate 650 mg tablet Take 4 Tablets by mouth 3 times daily. 09/01/2013 acetaminophen (TYLENOL) 325 mg tablet Take 3 Tabs by mouth every 6 hours as needed for Pain. 01/25/2014 9 BIOTIN ORAL Take 5,000 mg by mouth daily. 9 Cyanocobalamin 1,000 mcg TbER Take by mouth. 9 cyclobenzaprine (FLEXERIL) 10 mg tablet Take 5 mg by mouth 3 times daily. 2 DIAZepam (VALIUM) 5 mg tablet Take 5 mg by mouth 2 times daily. 9 estradiol (VIVELLE) 0.025 mg/[address] 1 Patch onto the skin once a week. 9 Ginkgo Biloba 40 mg tablet Take 60 mg by mouth daily. 9 HYDROmorphone (DILAUDID) 2 mg tablet Take 1 Tab by mouth every 4 hours as needed for Pain. Daily Max: 12 mg 14 Tab 04/16/2018 9 loperamide (IMODIUM A-D) 2 mg tablet Take 2 mg by mouth 2 times daily as needed for Diarrhea. 9 magnesium oxide (MAG-OX) 400 mg tablet Take 800 mg by mouth daily. 09/01/2013 2 metoprolol (LOPRESSOR) 25 mg tablet Take 12.5 mg by mouth daily. 2 documented as of this encounter Ordered Prescriptions Prescription Sig Dispense Quantity Refills Last Filled Start Date End Date HYDROmorphone (DILAUDID) 2 mg tablet Take 1 Tab by mouth every 4 hours as needed for Pain. Daily Max: 12 mg 14 Tab 04/16/2018 10/26/2018 documented in this encounter Discharge Disposition Disposition Code Departure Means Destination Home or Self Care documented in this encounter Progress Notes * Nida Lu - 04/16/2018 1241 EST Initial Case Management/Social Work Assessment and Discharge Plan/Readmission Risk Assessment/DC Note REASON FOR ADMISSION: Crohn's disease ([facility]) now s/p perinealcompletion proctectomy Patient understands reason for admission: Yes PATIENT CONTACT INFO VERIFIED: Yes PATIENT ADDRESS VERIFIED: Yes LIVING ARRANGEMENTS AND ACCESSIBILITY ISSUES: Living Arrangements: Significant other What in home social supports are available to the patient? Significant other Is 06/10 care available? Yes ADVANCED DIRECTIVES, POA &/or COLST IN PLACE: Healthcare Directive: No, patient does not have advance directive for healthcare treatment DIRECTIVES FOR FINANCES: TRANSPORTATION: Transportation: Family CULTURAL, FAITH and/or LANGUAGE factors affecting health care/discharge planning: Spiritual/Cultural Requests: None Any factors affecting health care/discharge planning?: No Insurance in Place: Yes Medical Insurance: Yes Type of insurance: Medicaid Medicaid Type: Community DISCHARGE RISK ASSESSMENT: No risks identified Total # selected above: Score: Zero Tentative plan to address the risk of re-hospitalization for those at HIGH MODERATE RISK: RAPT TOOL: Age: 50-65 Gender: Female Ambulation distance: 2 or more blocks (600ft) Gait device: None Community Services: Home health, MOW, SAS-none Will you live with someone who will care for you?: Yes RAPT Tool Score: 11 Patient expects to be discharged to: home SBIRT: SASQ (Single Alcohol Screening Question) How many times in the past year have you had 4 or more drinks in a single day?: Never How many times in the past year have you used an illegal drug or used a prescription medication fornon-medical reasons?: Never Intervention in place/initiated?: No, not indicated FUNCTIONAL STATUS: Activities patient requires assistance: None Assistive Device: None COMMUNITY RESOURCES/SUPPORTS: Primary Care Provider: Sondra Lala APRN PCP Verified: Yes Specialists: Type of Home Health Services: None DME Provider: Pharmacy: [facility] [address] [place] [address] - [address] [facility] [address] Home Health: Other: POST HOSPITAL TRANSITION PLAN: Met with pt at bedside for home risk assessment. No mobility issues.Active and independent at home. Pt discharged home to self care with supportive SO. Li Lu RN CM [id number] 04/16/2018 * Karlie Urena MD - 04/16/2018 0745 EST Surgery Progress Note Service Date: 04/16/2018 Admit Date: 04/15/2018 9:23 POD: 1 (04/15/2018) Procedure: perineal completion proctectomy Chief Complaint: anal leakage s/p coloproctectomy in 2001 24 Hour Events: ?? OR for above Subjective/Objective Subjective Patient reports her pain is well controlled this AM. She denies nausea, vomiting, fevers, or chills. She has not had much to eat yet. Objective Vital Signs Temp: [34 ??C (93.2 ??F)-36.6 ??C (97.9 ??F)] (), Heart Rate: [82 BPM-94 BPM] (), Pulse: [76-90] (), Pulse From Oximetry: [80 BPM-95 BPM] (), Resp: [14-21] (), BP: (88-124)/(56-84) (), SpO2: [94 %-100 %] () Physical Exam General Appearance: alert, cooperative, no distress Lung: clear to auscultation bilaterally Heart: regular rate and rhythm Abdomen: soft, ND, NT Extremities: Warm and well perfused Incision(s)/Wound(s): clean, dry, intact with Nylon sutures in place Is PICC or Central line present? No, PICC/Central line not present. Assessment/Plan Assessment 62 y.o. female with history of Crohn's disease and prior coloproctectomy in 2001 now POD# 1 s/p perineal completion proctectomy. Plan Active Problems: Crohn's disease ([facility]) - Regular diet, no restrictions - pain control with APAP and PO dilaudid - likely discharge to home today VTE Prophylaxis Pharmacologic Prophylaxis: Enoxaparin (Lovenox) 40 mg SQ daily Discharge Plan Home or self care Karlie Urena MD 04/16/2018 7:45 * Vivek Vidal RN - 04/14/2018 1080 EST Zaira Collins has been instructed as follows regarding medication administration for the day of the scheduled procedure. Date of Surgery: 04/14/18 Instructions for Taking Medications Day of Surgery Medication Sig Last Dose Hold DOS Take DOS acetaminophen (TYLENOL) 325 mg tablet Take 3 Tabs by mouth every 6 hours as needed for Pain. Patient not taking: Reported on 03/22/2018 yes BIOTIN ORAL Take 5,000 mg by mouth daily. x cyanocobalamin (VITAMIN B-12) 1,000 mcg/mL injection Inject 1,000 mcg into the muscle every 28 days. x Cyanocobalamin 1,000 mcg TbER Take by mouth. x cyclobenzaprine (FLEXERIL) 10 mg tablet Take 10 mg by mouth 3 times daily as needed. Yes prn DIAZepam (VALIUM) 5 mg tablet Take 5 mg by mouth 2 times daily. Prn yes DULoxetine (CYMBALTA) 60 mg capsule Take 60 mg by mouth daily. yes estradiol (VIVELLE) 0.025 mg/[address] 1 Patch onto the skin once a week. x Ginkgo Biloba 40 mg tablet Take 60 mg by mouth daily. x Hydromorphone (DILAUDID) 1 mg/mL liquid Take 1 mg by mouth every 4 hours. Prn yes loperamide (IMODIUM A-D) 2 mg tablet Take 2 mg by mouth 2 times daily as needed for Diarrhea. x magnesium oxide (MAG-OX) 400 mg tablet Take 400 mg by mouth daily. x metoprolol (LOPRESSOR) 25 mg tablet Take 25 mg by mouth daily. yes ONDANSETRON HCL ORAL Take 4 mg by mouth 2 times daily. Yes prn oxyCODONE-acetaminophen (PERCOCET) 5-325 mg per tablet Take 1 Tab by mouth 3 times daily as needed for Pain. Yes prn potassium chloride (MICRO-K) 10 mEq capsule Take 20 mEq by mouth 2 times daily. x sodium bicarbonate 650 mg tablet Take 3 Tabs by mouth 4 times daily. x documented in this encounter H&P Notes * Krishna Ruiz MD - 04/15/2018 1124 EST The preoperative history and physical which was performed within 30 days of this procedure has been reviewed and the clinically appropriate elements of the physical examination have been repeated. There are no changes to the documented history and physical or if so such changes are documented below Krishna Ruiz MD 04/15/2018 11:24 Source Note - Krishna Ruiz MD - 03/31/2018 9:15 EST Subjective: Patient ID: Zaira Collins is an 62 y.o. female. Chief Complaint Patient presents with ??? 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 HPI Patient Active Problem List Diagnosis ??? Chronic [...] stones ??? 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 Tachycardia rx with [...] every 6 hours as needed for Pain. (Patient not taking: Reported on 03/22/2018) ??? BIOTIN ORAL Take 5,000 mg by [...] onto the skin once a week. ??? Ginkgo Biloba 40 mg tablet Take 60 mg by mouth daily. ??? Hydromorphone (DILAUDID) 1 mg/mL liquid Take 1 mg by mouth every 4 hours. ??? loperamide (IMODIUM A-D) 2 mg tablet Take 2 mg by mouth 2 times daily as needed for Diarrhea. ??? magnesium oxide (MAG-OX) 400 mg tablet Take 400 mg by mouth daily. ??? metoprolol (LOPRESSOR) 25 mg tablet Take 25 mg by mouth daily. ??? ONDANSETRON HCL ORAL Take 4 mg by mouth 2 times daily. ??? oxyCODONE-acetaminophen (PERCOCET) 5-325 mg per tablet Take 1 Tab by mouth 3 times daily as needed for Pain. ??? potassium chloride (MICRO-K) 10 mEq capsule Take 20 mEq by mouth 2 times daily. ??? sodium bicarbonate 650 mg tablet Take 3 Tabs by mouth 4 times daily. No current facility-administered medications on file prior to visit. Allergies Allergen Reactions ??? Chantix [Varenicline] SEISURES ROS - See HPI Objective: There were no vitals taken for this visit. Physical Exam Assessment: Plan: No diagnosis found. Krishna Ruiz MD No orders of the defined types were placed in this encounter. documented in this encounter OR Notes * OR Surgeon - Krishna Ruiz MD - 04/15/2018 0000 EST OPERATIVE REPORT SERVICE DATE: 04/15/2018 PREOPERATIVE DIAGNOSIS: History of Crohn disease, anus in place status post proctocolectomy. POSTOPERATIVE DIAGNOSIS: History of Crohn disease, anus in place status post proctocolectomy. PROCEDURE: Removal of the anus and distal rectum via a perineal approach. SURGEON: Krishna Ruiz MD FACS FAS[employer] DIRECTOR OF ANCILLARY SERVICES: Karlie Urena MD ANESTHESIA: General endotracheal. INDICATIONS: Cynthia is a woman with Crohn disease who underwent proctocolectomy with permanent end ileostomy in 2001. Given the extensive perianal disease, her anus was left in place and things were stapled just at the pelvic floor. She has done well, but over the years, has had intermittent problems with the anus, including recurrences of abscesses. 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 There was a lot of fatty tissue between the small bowel and the top of the anal stump. I met with her a few times in the office and we discussed her situation multiple times, but given the chronic draining propensity for this, she decided to have her anus and any distal rectum removed.I counseled her on the risks including a risk of small-bowel injury, nonhealing perineal wound, pain. Her questions were answered. Written informed consent was obtained. FINDINGS: 1. No evidence of current abscess at the top of the anal stump. 2. No fistula to the vagina. NARRATIVE: The patient was brought to the operating room, and after completion of a surgical safetychecklist with her participation, the patient was anesthetized and intubated by the anesthesiologist. A Becerra catheter was placed. She was then carefully placed in the prone jackknife position on theOR with padding of the extremities. The buttocks were taped apart, and the anus was sewn closed with a silk suture. It was then prepped and draped in usual sterile fashion and a final pause was held in which correct patient and procedure to be performed was confirmed by those present. An elliptical incision was made around the anus, which was quite contracted. We came down through the ischioanal fat on both sides and anteriorly. The left side and posterior was quite free of any scarring and things nicely here. In the anterior, the rectovaginal septum was essentially obliterated with scar, and there was also scarring on the right side consistent with prior fistula dise ase. We carefully dissected through that scar tissue on the right side and anteriorly and eventually were able to remove the anus in its entirety and sent it for pathology. We did not rupture into the anus or the distal rectum or into the vagina during the course of our dissection. The wound was then carefully inspected. We palpated the superior aspect to make sure there were no undrained pockets of fluid, and we could find none. The tissues appeared healthy. They were irrigated and there was excellent hemostasis. The wound was then closed in layers of Vicryl and then a final layer of nylon mattress sutures for the skin. Local anesthetic was injected. I was present and scrubbed for the entire case. She tolerated the procedure very well. Unless otherwise noted, there were no complications, no blood loss, no cultures obtained, no specimens removed, and no drains retained. Krishna Ruiz MD FACS FAS[employer] 12 51 PM / Krishna Ruiz MD FACS [employer] ln Confirmation: [id number] Dictation ID: [id number] cc:Karlie Urena MD [facility] [employer] SUPER[employer]OR documented in this encounter Miscellaneous Notes * Plan of Care - Zandra Colon RN - 04/16/2018 1223 EST Problem: Daily Care Plan Goals Goal: Care Plan Documentation Outcome: Completed Date Met: 04/16/18 04/16/18 1110 Care Plan Focus Area of Focus Discharge Plan Goal This Shift Pt will discharge home Data: Pt medically stable and discharge orders received. Action: AVS reviewed with pt and family at the bedside and all questions answered. IV removed with no complications. Response: Pt discharged home with family. There are no home health needs at this time. ZANDRA COLON RN 04/16/2018 12:22 * Plan of Care - Spencer Anne RN - 04/16/2018 0433 EST Problem: Daily Care Plan Goals Goal: Care Plan Documentation 04/16/18 0100 Care Plan Focus Area of Focus Pain/ Comfort Goal This Shift rest Data: Assumed care of pt at 2300. Pt reporting 6/10 abdominal/perineal discomfort. Action: Pt medicated for pain with PRN PO meds, see MAR Perineal drsg changed/small SS drainage; Ostomy + flatus. Response: Pt repositioned in bed for comfort; Lying left side. Care clustered to promote rest. Will continue to monitor. Spencer Anne RN 04/16/2018 4:28 * Plan of Care - Teddy Muhammad RN - 04/15/2018 2235 EST Problem: Daily Care Plan Goals Goal: Care Plan Documentation 04/15/18 1535 Care Plan Focus Area of Focus Pain/ Comfort Goal This Shift Pt. will remain at a tolerable level of pain this shift Data: POD#0 s/p perineal proctectomy, dry dressing remains CDI, VSS, A&Ox3, Assumed care of pt.1530, Becerra, IVF, RA. Action: Medicated pt. For pain control see eMar. Response: Pt. Able to easily fall asleep, able to make needs known. Call liu within reach. TEDDY MUHAMMAD RN 04/15/2018 22:28 * Anesthesia Post-Eval - Matt Herrera MD - 04/15/2018 1435 EST Anesthesia Post op Note Zaira Vail Dennis [id number] Anesthesia received: General; Vital Signs: Temp: (!) 35.2 ??C (95.4 ??F), Heart Rate: 85 BPM, BP: 105/66, Resp: 17, SpO2: 100 % Vital signs Stable: Yes Consciousness: Recovered to baseline Patient's participation in evaluation:Able to participate Temperature Status: Normothermic Respiratory Status: Airway patent Supplemental O2: Nasal cannula Oxygen Saturation: Within patient's normal range Cardiovascular Status: Within patient's normal range Post-op Hydration: Adequate Nausea / Vomiting: None Pain Control: Adequate Current Pain Score: Numeric Pain Level (Scale 1-10): 6 Post-op Assessment: Tolerated procedure well Disposition: Inpatient Complications: No apparent anesthetic complications Matt Herrera MD 04/15/2018 14:35 * Brief Op Note - Karlie Urena MD - 04/15/2018 1313 EST Brief Op Note Date of Surgery: 04/15/18 Surgeon: Krishna Ruiz MD Resident: Karlie Urena MD, PGY5 Pre-Op Diagnosis: anal drainage s/p proctocolectomy Post-Op Diagnosis: anal drainage s/p proctocolectomy Procedure(s): perineal completion proctectomy Findings: fibrous scar tissue between rectum and vagina Anesthesia Type: General endotracheal anesthesia Estimated Blood Loss: 30ml Unless otherwise noted, there was no blood loss, specimens removed, cultures obtained, or drains retained. Fluids: 1000ml crystalloid Urine Output: 100ml Specimens/Cultures: anus for Routine Pathology Drains/Packs: None Complications: none Disposition and Condition: PACU - hemodynamically stable. Wound Class: 2 Karlie Urena MD, PGY5 04/15/2018 13:13 Pager #[phone] documented in this encounter Plan of Treatment Upcoming Encounters Date Type Department Care Team (Late st Contact Info) Description 04/07/2024 9:00 EST Office Visit [facility] Endocrinology - [address] [id number] Vincenzo Rawls MD [address] [place] [address] [address] [place] [address] 08/22/2024 15:30 EDT Telemedicine [facility] Nephrology - [address] [place] [address] Jose L Whitley MD [address] [facility], [address] [place] [address] Scheduled Referrals Name Type Priority Associated Diagnoses Orde r Schedule PROVIDER FOLLOW-UP INSTRUCTIONS Outpatient Referral Routine Ordered: 04/16/2018 PROVIDER FOLLOW-UP INSTRUCTIONS Outpatient Referral Routine Ordered: 04/16/2018 AMB CONS/FOLLOW UP GENERAL SURGERY Outpatient Referral STAT Crohn's disease with complication, unspecified gastrointestinal tract location ([facility]) Ordered: 04/16/2018 documented as of this encounter Procedures Procedure Name Priority Date/Time Associated Diagnosis Comments ECG REPORT - SCANNED 04/20/2018 10:36 EST SCREENING GLUCOSE Routine 04/16/2018 5:2 9 EST COMPLETE BLOOD COUNT AND DIFFERENTIAL Routine 04/16/2018 5:29 EST BUN Routine 04/16/2018 5:29 EST CREATININE Routine 04/16/2018 5:29 EST ELECTROLYTES Routine 04/16/2018 5:29 EST SURGICAL PATHOLOGY Routine 04/15/2018 18 :04 EST documented in this encounter Results * ECG REPORT - SCANNED (04/20/2018 10:36 EST) 04/20/2018 10:3 6 EST us Scan 2 Bilingual Social Worker PROCEDURE/MINOR SURGICAL OR DERABLES Final Result * (ABNORMAL) COMPLETE BLOOD COUNT AND DIFFERENTIAL (04/16/2018 5:29 EST) WBC 13.93(H) 4.0 - 12.4 K/cmm 04/16/2018 6:45 EST [facility] RBC 3.22(L) 3.86 - 5.04 M/cmm 04/16/2018 6:45 [facility] Hemoglobin 10.6(L) 11.6 - 15.2 gm/dl 04/16/2018 6:45 [facility] HCT 31.2(L) 34.9 - 44.4 % 04/16/2018 6:45 [facility] MCV 97 81 - 98 fl 04/16/2018 6:45 [facility] MCH 32.9 26.7 - 33.3 pg 04/16/2018 6:45 [facility] MCHC 34.0 32.1 - 35.9 gm/dl 04/16/2018 6:45 [facility] RDW-CV 12.4 <14.7 % 04/16/2018 6:45 [facility] RDW-SD 44.3 <50.4 fl 04/16/2018 6:45 [facility] PLT 281 141 - 377 K/cmm 04/16/2018 6:45 [facility] MPV 10.1 9.5 - 12.7 fl 04/16/2018 6:45 [facility] % Neutrophils 86.8 % 04/16/2018 6:45 [facility] % Lymphocytes 6.6 % 04/16/2018 6:45 [facility] % Monocytes 6.2 % 04/16/2018 6:45 [facility] % Eosinophils 0.0 % 04/16/2018 6:45 [facility] % Basophils 0.0 % 04/16/2018 6:45 [facility] % Immature Grans 0.4 % 04/16/2018 6:45 [facility] ABS Neutrophils 12.09(H) 2.20 - 8.85 K/cmm 04/16/2018 6:45 [facility] ABS Lymphs 0.92(L) 1.09 - 3.30 K/cmm 04/16/2018 6:45 [facility] ABS Monocytes 0.86(H) 0.1 - 0.8 K/cmm 04/16/2018 6:45 [facility] ABS Eosinophils 0.00(L) 0.03 - 0.61 K/cmm 04/16/2018 6:45 [facility] ABS Basophils 0.00(L) 0.01 - 0.11 K/cmm 04/16/2018 6:45 [facility] ABS Immature Grans 0.06 0 - 0.06 K/cmm 04/16/2018 6:45 [facility] Type of Diff: Automated 04/16/2018 6:45 [facility] Blood specimen (specimen) BLOOD SPECIMEN / Unknown 04/16/2018 5:29 EST 04/16/2018 6:36 EST us Karlie Urena MD PACKAGES & DNA PROBE ORDERABL ES Final Result Performing Organization Address [facility] Co de Phone Number [facility] [address] [place] [address] * (ABNORMAL) CREATININE (04/16/2018 5:29 EST) Creatinine 1.76(H) 0.52 - 1.04 mg/dl 04/16/2018 7:11 [facility] GFR, Calculated 31(L) >60 ml/min/1.7 3m2 04/16/2018 7:11 [facility] Comment: eGFR calculated using CKD-EPI equation for non Americans. Multiply eGFR by 1.16 for Americans. Blood specimen (specimen) BLOOD SPECIMEN / Unknown 04/16/2018 5:29 EST 04/16/2018 6:36 EST us Karlie Urena MD CHEMISTRY & BLOOD GAS ORDERAB LES Final Result Performing Organization Address City/[facility]/ZIP Co de Phone Number [facility] [address] [place] [address] * (ABNORMAL) BUN (04/16/2018 5:29 EST) BUN 38(H) 10 - 26 mg/dl 04/16/2018 7:11 [facility] Blood specimen (specimen) BLOOD SPECIMEN / Unknown 04/16/2018 5:29 EST 04/16/2018 6:36 EST Karlie Urena MD CHEMISTRY & BLOOD GAS ORDERAB LES Final Result Performing Organization Address [facility] Co de Phone Number [facility] [address] [place] [address] * (ABNORMAL) ELECTROLYTES (04/16/2018 5:29 EST) Sodium 129(L) 136 - 145 mEq/L 04/16/2018 7:11 [facility] Potassium 3.4(L) 3.5 - 5.0 mEq/L 04/16/2018 7:11 [facility] Chloride 94(L) 96 - 110 mEq/L 04/16/2018 7:11 [facility] CO2 27 22 - 32 mEq/L 04/16/2018 7:11 [facility] Blood specimen (specimen) BLOOD SPECIMEN / Unknown 04/16/2018 5:29 EST 04/16/2018 6:36 EST us Karlie Urena MD CHEMISTRY & BLOOD GAS ORDERAB LES Final Result Performing Organization Address [facility]/ZIP Co de Phone Number [facility] [address] [place] [address] * SCREENING GLUCOSE (04/16/2018 5:29 EST) Glucose, Screening 100 70 - 100 mg/dl 04/16/2018 7:11 [facility] Blood specimen (specimen) BLOOD SPECIMEN / Unknown 04/16/2018 5:29 EST 04/16/2018 6:36 EST Karlie Urena MD CHEMISTRY & BLOOD GAS ORDERAB LES Final Result Performing Organization Address [facility]/ZIP Co de Phone Number [facility] [address] [place] [address] * SURGICAL PATHOLOGY (04/15/2018 18:04 EST) Pathology Report: SURGICAL PATHOLOGY REPORT Reports generated via electronic interface contain original data; however they are lacking the format of the original report. Caution should be taken when reading/interpret ing unformatted reports. Name: ? ZAIRA COLLINS ? Accession #: ? [id number] ? : ? 1955 (Age: 62) ??F ? Collect Date: ? 04/15/2018 ? Location: ? B006 ? Receive Date: ? 04/15/2018 ? Provider: KRISHNA RUIZ MD Copy to: SONDRA LALA [employer]PER[employer] SUPERVISOR ? Final Pathologic Diagnosis: PERINEAL SKIN, EXCISIONAL BIOPSY: - Subepidermal/Subm ucosal scar tissue with associated granulomatous inflammation. Document reviewed and electronically signed by: FELY CAPPS MD Report ??Date: 04/20/2018 19:55 By the signature above, the attending physician certifies that he/she has personally conducted a gross and/or microscopic examination of the described specimens and rendered or confirmed the above diagnosis. Specimen(s) Received: Signout Anus Clinical History: History of Crohn's disease Gross Description: ? Received in normal saline labelled with proper patient identification (initials L, P) and anus is an unoriented ovoid excision of slightly cauterized yellow fibrofatty tissue (5.3 x 3.2 x 2.9 cm) with a surface of oneil-pink to white hairbearing skin (4.6 x 2.1 cm and is excised to a depth of 2.9 cm) that is closed at one end. The skin is slightly hemorrhagic circumferentially at the surface to a width of 1.1 cm. The margins are inked blue. The specimen is sectioned circumferentially . Side Splitter sections are submitted in 1-6. Dr. Bajwa 04/16/2018 2:02 PM End of Report [facility] 04/15/2018 18:0 4 EST 04/15/2018 18:04 EST us Krishna Ruiz MD PATHOLOGY ORDERABLES Final Result [facility] [address] [place] [address] documented in this encounter Visit Diagnoses Diagnosis Crohn's disease (HCC-CMS)- Primary Regional enteritis of unspecified site Crohn's disease with complication, unspecified gastrointestinal tract location (HCC-CMS) documented in this encounter Administered Medications Inactive Administered Medications - up to 3 most recent administrations Medication Order MAR Action Action Date Dose Rate Site acetaminophen (TYLENOL) tablet 1,000 mg 1,000 mg, oral, EVERY 6 HOURS PRN, Starting on Thu04/15/18 at 1548, Until Thu04/16/18 at 0844, Pain, Routine, On Unit Given 04/16/2018 1:02 EST 1,000 mg acetaminophen (TYLENOL) tablet 1,000 mg 1,000 mg, oral, EVERY 4 HOURS PRN, Starting on Thu04/15/18 at 1344, Until Thu04/15/18 at 1612, Pain, Routine Given 04/15/2018 14:11 EST 1,000 mg acetaminophen (TYLENOL) tablet 1,000 mg 1,000 mg, oral, EVERY 6 HOURS, First dose (after last modification) on Thu04/16/18 at 1200, Until Discontinued, Routine, On Unit Given 04/16/2018 12:04 EST 1,000 mg ceFAZolin (ANCEF) syringe 2 g 2 g, intravenous, Administer over 10 Minutes, PRE-OP ONCE, 1 dose, On Thu04/15/18 at 1015, Routine, Pre-Op DOS Rx ApprovedIndications:Crohn's disease with complication, unspecified gastrointestinal tract location (HCC-CMS) Given by Other 04/15/2018 11:40 EST 2 g IV chlorhexidine gluconate 2 % cloth 1 Each 1 Each, topical, PRE-OP MULTIPLE, Starting on Thu04/15/18 at 0952, Until Thu04/15/18 at 1547, Other, Routine, Pre-Op DOS Rx ApprovedIndications:Crohn's disease with complication, unspecified gastrointestinal tract location (HCC-CMS) Given 04/15/2018 10:33 EST 1 Each dextrose 5 % and 0.45 % NaCl with KCl 20 mEq/L infusion 80 mL/hr, intravenous, CONTINUOUS, Starting on Jazlyn 04/15/18 at 1430, Until Thu04/16/18 at 0756, Routine, On Unit New Bag 04/16/2018 1:00 EST 80 mL/hr 80 mL/hr Rate Documented 04/15/2018 15:30 EST 80 mL/hr 80 mL/hr New Bag 04/15/2018 14:07 EST 80 mL/hr 80 mL/hr DULoxetine (CYMBALTA) delayed release capsule 60 mg 60 mg, oral, DAILY, First dose on Thu04/16/18 at 0900, Until Discontinued, Routine, On Unit Given 04/16/2018 8:34 EST 60 mg gabapentin (NEURONTIN) capsule 300 mg 300 mg, oral, PRE-OP ONCE, 1 dose, On Jazlyn 04/15/18 at 1015, Routine, Pre-Op DOS Rx ApprovedIndications:Crohn's disease with complication, unspecified gastrointestinal tract location (HCC-CMS) Given 04/15/2018 10:13 EST 300 mg heparin injection 5,000 Units 5,000 Units, subcutaneous, PRE-OP ONCE, 1 dose, On Jazlyn 04/15/18 at 1015, Routine, Pre-Op DOS Rx ApprovedIndications:Crohn's disease with complication, unspecified gastrointestinal tract location ([facility]) Given 04/15/2018 10:40 EST 5,000 Units Left Ar m heparin injection 5,000 Units 5,000 Units, subcutaneous, EVERY 12 HOURS, First dose on Thu04/16/18 at 0900, Until Discontinued, Routine, On Unit Given 04/16/2018 8:34 EST 5,000 Units HYDROmorphone (DILAUDID) tablet 2 mg 2 mg, oral, EVERY 4 HOURS PRN, Starting on Jazlyn 04/15/18 at 1548, Until Thu04/16/18 at 1444, Pain, Routine, On Unit Given 04/16/2018 9:55 EST 2 mg Given 04/16/2018 5:38 EST 2 mg Given 04/16/2018 1:02 EST 2 mg HYDROmorphone injection (DILAUDID) 0.5 mg/1 mL syringe 0.2 mg 0.2 mg, intravenous, EVERY 4 HOURS PRN, Starting on Thu04/15/18 at 1548, Until Thu04/16/18 at 0756, Pain, Routine, On Unit Given 04/15/2018 17:01 EST 0.2 mg ketOROLAC (TORADOL) injection 15 mg 15 mg, intravenous, NOW X1, 1 dose, On Thu04/15/18 at 1415, Routine Given 04/15/2018 14:10 EST 15 mg lactated ringers (LR) infusion 25 mL/hr, intravenous, CONTINUOUS, Starting on Thu04/15/18 at 1015, Until Thu04/15/18 at 1547, Routine, Pre-Op DOS Rx ApprovedIndications:Crohn' s disease with complication, unspecified gastrointestinal tract location (HCC-CMS) New Bag 04/15/2018 10:33 EST 25 mL/hr 25 mL/hr magnesium oxide (MAG-OX) tablet 400 mg 400 mg, oral, DAILY, First dose on Thu04/16/18 at 0900, Until Discontinued, Routine, On Unit Given 04/16/2018 8:35 EST 400 mg metoprolol (LOPRESSOR) tablet 25 mg 25 mg, oral, DAILY, First dose on Thu04/16/18 at 0900, Until Discontinued, Routine, On Unit Given 04/16/2018 8:34 EST 25 mg metronidazole (FLAGYL) infusion 500 mg 500 mg, intravenous, Administer over 30 Minutes, PRE-OP ONCE, 1 dose, On Thu04/15/18 at 1015, Routine, Pre-Op DOS Rx ApprovedIndications:Crohn' s disease with complication, unspecified gastrointestinal tract location (HCC-CMS) Given 04/15/2018 10:32 EST 500 mg nicotine (NICODERM CQ) 14 mg/24 hr patch 1 Patch 1 Patch, transdermal, DAILY, First dose on Thu04/15/18 at 1745, Until Discontinued, Routine Patch Applied 04/16/2018 8:35 EST 1 Patch Left Shoulder potassium chloride (KLOR-CON) packet 20 mEq 20 mEq, oral, 2 TIMES DAILY, First dose on Thu04/15/18 at 2100, Until Discontinued, On Unit Given 04/16/2018 8:34 EST 20 mEq Given 04/15/2018 21:21 EST 20 mEq sodium bicarbonate 1,950 mg 1,950 mg, oral, 4 TIMES DAILY, First dose on Thu04/15/18 at 1700, Until Discontinued, Routine, On Unit Given 04/16/2018 12:03 EST 1,950 mg Given 04/16/2018 8:45 EST 1,950 mg Given 04/15/2018 21:21 EST 1,950 mg sodium chloride 0.9 % flush 3 mL 3 mL, intravenous, PRN, Starting on Thu04/16/18 at 0800, Until Thu04/16/18 at 1444, Line Care, Routine, On Unit documented in this encounter Discontinued Medications Medication Sig Discontinue Reason Start Date End Da te oxyCODONE-acetaminophen (PERCOCET) 5-325 mg per tablet Take 1 Tab by mouth 3 times daily as needed for Pain. 04/16/2018 Hydromorphone (DILAUDID) 1 mg/mL liquid Take 1 mg by mouth every 4 hours. 04/16/2018 documented as of this encounter Active and Recently Administered Medications Times are shown in EST. Scheduled Medication Order 04/14/2018 04/15/2018 04/16/2018 acetaminophen (TYLENOL) tablet 1,000 mg 1,000 mg, oral, EVERY 6 HOURS, First dose (after last modification) on Thu04/16/18 at 1200, Until Discontinued, Routine, On Unit 1204 (Given - Provid er: Zandra Colon RN) ceFAZolin (ANCEF) syringe 2 g (COMPLETED)(Linked Group 1) 2 g, intravenous, Administer over 10 Minutes, PRE-OP ONCE, 1 dose, On Jazlyn 04/15/18 at 1015, Routine, Pre-Op DOS Rx Approved 1140 (Given by Other - Provider: Linh Garzon RN - Comment: Given intra-op by anesthesia; Ko Lara) DULoxetine (CYMBALTA) delayed release capsule 60 mg 60 mg, oral, DAILY, First dose on Thu04/16/18 at 0900, Until Discontinued, Routine, On Unit 0834 (Given - Provid er: Leonardo Ho RN) gabapentin (NEURONTIN) capsule 300 mg (COMPLETED) 300 mg, oral, PRE-OP ONCE, 1 dose, On Jazlyn 04/15/18 at 1015, Routine, Pre-Op DOS Rx Approved 1013 (Given - Provider: Natividad Serra RN) heparin injection 5,000 Units (COMPLETED) 5,000 Units, subcutaneous, PRE-OP ONCE, 1 dose, On Thu04/15/18 at 1015, Routine, Pre-Op DOS Rx Approved 1040 (Given - Provider: Natividad Serra RN) heparin injection 5,000 Units 5,000 Units, subcutaneous, EVERY 12 HOURS, First dose on Thu04/16/18 at 0900, Until Discontinued, Routine, On Unit 0834 (Given - Provid er: Leonardo Ho RN) ketOROLAC (TORADOL) injection 15 mg (COMPLETED) 15 mg, intravenous, NOW X1, 1 dose, On Thu04/15/18 at 1415, Routine 1410 (Given - Provider: Marybeth Yeung RN) magnesium oxide (MAG-OX) tablet 400 mg 400 mg, oral, DAILY, First dose on Thu04/16/18 at 0900, Until Discontinued, Routine, On Unit 0835 (Given - Provid er: Leonardo Ho RN) metoprolol (LOPRESSOR) tablet 25 mg 25 mg, oral, DAILY, First dose on Thu04/16/18 at 0900, Until Discontinued, Routine, On Unit 0834 (Given - Provid er: Leonardo Ho RN) metronidazole (FLAGYL) infusion 500 mg (COMPLETED)(Linked Group 1) 500 mg, intravenous, Administer over 30 Minutes, PRE-OP ONCE, 1 dose, On Thu04/15/18 at 1015, Routine, Pre-Op DOS Rx Approved 1032 (Given - Provider: Natividad Serra RN) nicotine (NICODERM CQ) 14 mg/24 hr patch 1 Patch 1 Patch, transdermal, DAILY, First dose on Thu04/15/18 at 1745, Until Discontinued, Routine 1805 (Hold - Provider: Teddy Muhammad RN - Reason: Other) 0835 (Patch Applied - Provider: Leonardo Ho RN)2100 (Due: Patch Removed - Provider: Leonardo Ho RN) potassium chloride (KLOR-CON) packet 20 mEq 20 mEq, oral, 2 TIMES DAILY, First dose on Thu04/15/18 at 2100, Until Discontinued, On Unit 212 (Given - Provider: Teddy Muhammad RN) 0834 (Given - Provider: Leonardo Ho RN) sodium bicarbonate 1,950 mg 1,950 mg, oral, 4 TIMES DAILY, First dose on Jazlyn 04/15/18 at 1700, Until Discontinued, Routine, On Unit 1700 (Given - Provider: Teddy Muhammad RN)2121 (Given - Provider: Teddy Muhammad RN) 0845 (Given - Provider: Leonardo Ho, CHARLIE)1203 (Given - Provider: Zandra Colon RN) Continuous Medication Order 04/14/2018 04/15/2018 04/16/2018 dextrose 5 % and 0.45 % NaCl with KCl 20 mEq/L infusion (CANCELED) 80 mL/hr, intravenous, CONTINUOUS, Starting on Jazlyn 04/15/18 at 1430, Until Thu04/16/18 at 0756, Routine, On Unit 1407 (New Bag - Provider: Marybeth Yeung, CHARLIE)1530 (Rate Documented - Provider: Teddy Muhammad RN) 0100 (New Bag - Provider: Spencer Anne RN) lactated ringers (LR) infusion (CANCELED) 25 mL/hr, intravenous, CONTINUOUS, Starting on Jazlyn 04/15/18 at 1015, Until Jazlyn 04/15/18 at 1547, Routine, Pre-Op DOS Rx Approved 1033 (New Bag - Provider: Natividad Serra, CHARLIE) PRN Medication Order 04/14/2018 04/15/2018 04/16/2018 acetaminophen (TYLENOL) tablet 1,000 mg (CANCELED) 1,000 mg, oral, EVERY 6 HOURS PRN, Starting on Jazlyn 04/15/18 at 1548, Until Thu04/16/18 at 0844, Pain, Routine, On Unit 0102 (Given - Provid er: Spencer Anne RN) acetaminophen (TYLENOL) tablet 1,000 mg (CANCELED) 1,000 mg, oral, EVERY 4 HOURS PRN, Starting on Jazlyn 04/15/18 at 1344, Until Jazlyn 04/15/18 at 1612, Pain, Routine 1411 (Given - Provider: Marybeth Yeung RN) chlorhexidine gluconate 2 % cloth 1 Each (CANCELED) 1 Each, topical, PRE-OP MULTIPLE, Starting on Thu04/15/18 at 0952, Until Thu04/15/18 at 1547, Other, Routine, Pre-Op DOS Rx Approved 1033 (Given - Provider: Natividad Serra RN) HYDROmorphone (DILAUDID) tablet 2 mg 2 mg, oral, EVERY 4 HOURS PRN, Starting on Thu04/15/18 at 1548, Until Thu04/16/18 at 1444, Pain, Routine, On Unit 0102 (Given - Provid er: Spencer Anne RN)0538 (Given - Provider: Spencer Anne RN)0955 (Given - Provider: Leonardo Ho RN) HYDROmorphone injection (DILAUDID) 0.5 mg/1 mL syringe 0.2 mg (CANCELED) 0.2 mg, intravenous, EVERY 4 HOURS PRN, Starting on Thu04/15/18 at 1548, Until Thu04/16/18 at 0756, Pain, Routine, On Unit 1701 (Given - Provider: Teddy Muhammad RN) loperamide (IMODIUM) capsule 2 mg 2 mg, oral, 2 TIMES DAILY PRN, Starting on Thu04/15/18 at 1548, Until Thu04/16/18 at 1444, Diarrhea, On Unit sodium chloride 0.9 % flush 3 mL(Linked Group 2) 3 mL, intravenous, PRN, Starting on Thu04/16/18 at 0800, Until Thu04/16/18 at 1444, Line Care, Routine, On Unit Linked Groups Order Group 1: ceFAZolin (ANCEF) syringe 2 g (COMPLETED)Jump to med 2 g, intravenous, Administer over 10 Minutes, PRE-OP ONCE, 1 dose, On Thu04/15/18 at 1015, Routine, Pre-Op DOS Rx Approved And metronidazole (FLAGYL) infusion 500 mg (COMPLETED)Jump to med 500 mg, intravenous, Administer over 30 Minutes, PRE-OP ONCE, 1 dose, On Thu04/15/18 at 1015, Routine, Pre-Op DOS Rx Approved Group 2: Change IV to Saline Lock (CANCELED) Routine, ONE TIME, On Thu04/16/18 at 0800, For 1 occurrence, On Unit And sodium chloride 0.9 % flush 3 mLJump to med 3 mL, intravenous, PRN, Starting on Thu04/16/18 at 0800, Until Thu04/16/18 at 1444, Line Care, Routine, On Unit documented in this encounter Orders Medications Ordered That Gerald ht Not Have Been Administered Count Last Ordered Date First Ordered Date acetaminophen (TYLENOL) tablet 650 mg 1 atropine 0.1 mg/mL syringe 0.5 mg 1 019 fentaNYL citrate (PF) injection 25-50 mcg 1 04/15/2018 HYDROmorphone injection (DIL AUDID) 0.5 mg/1 mL syringe 0.3-0.5 mg 1 04/15/2018 lactated ringers (LR) infusion 1 04/15/2018 loperamide (IMODIUM) capsule 2 mg 1 019 metoCLOPramide (REGLAN) injection 10 mg 1 0 04/15/2018 naloxone (NARCAN) injection 0.2 mg 1 2018 ondansetron (PF) (ZOFRAN) injection 4 mg 1 04/15/2018 oxyCODONE (ROXICODONE) immed iate release tablet 5-10 mg 1 04/15/2018 sodium chloride 0.9 % flush 3 mL 1 04/15/19 19 Diet Count Last Ordered Date First Orde red Date DISCHARGE DIET 1 04/16/2018 Nursing Count Last Ordered Date First Orde red Date ACTIVITY INSTRUCTIONS 1 04/16/2018 BATHING INSTRUCTIONS 1 04/16/2018 DRIVING INSTRUCTIONS 04/16/2018 WOUND CARE INSTRUCTIONS 04/16/2018 APPLY WARMING BLANKET 04/15/[address] PL[address] SEQUENTIAL COMPRESSION DEVICE 1 04/15 Admission Count Last Ordered Date First Orde red Date STATUS: INPATIENT DOSA/DOPA DAY OF SURGERY/PROCEDURE ADMISSION 1 04/15/2018 Transfer Count Last Ordered Date First Orde red Date NOTIFY PPS OF DISCHARGE COMPLETE 04/16/19 NOTIFY PPS PATIENT ARRIVAL IN PACU 2 2018 NOTIFY PPS PATIENT TRANSFERRED OUT OF PACU 04/15/2018 PPS NOTIFICATION OF PATIENT ARRIVAL ON UNIT 1 04/15/2018 Discharge Count Last Ordered Date First Orde red Date DISCHARGE PATIENT 1 04/16/2018 Legal Count Last Ordered Date First Orde red Date MISCELLANEOUS DISCHARGE INSTRUCTIONS 2 03/2018 documented in this encounter Care Teams Clinical Education Academic Coordinator Relationship Specialty Start Date End Date Sondra Lala, [employer] SUPERVISOR [address] [facility] [place] [id number] PCP - General 03/22/18 07/06/22 documented as of this encounter
--- OUTSIDE RECORDS SUMMARY | 2024-03-17 12:19 | XMS_ITS | Encounter Summary ---
Author Organization [facility] Address [address] [place] [address] Care Team Providers Care Mill Set Up Name Role Phone Jennifer Ordoñez MAY Primary Care Provider + Reason for Visit * Reason Onset Date Comments Follow-up 03/22/2019 Encounter Details Date Type Department Care Team (Late st Contact Info) Description 03/22/2019 Telephone [facility] Nephrology - [address] [address] Jose L Whitley MD [address] [place] [address], [address] [place] [phone] Follow-up Social History Tobacco Use [...] Assessment Author No 04/16/2018 12:00 Sa karlie oMnique RN * Do you have serious difficulty [...] Encounter - Jose L Whitley MD - 03/22/2019 1154 EST Medical records received from [facility] on 03-15-19. Blood tests from 03-04-19: Total vitamin D 25 was 26 ng/ml (30-100) (Insufficient, deficient is <10). Potassium 3.9 Sodium 142 Bicarbonate 34.2 Creatinine is higher than baseline (fluctuations) at 1.94 mg/dL. I had requested for regular repeat basic metabolic profile testing. She has an ileostomy and is prone to recurrent dehydration which intermittently impacts on her serum creatinine. documented in this encounter Plan of Treatment Upcoming Encounters Date Type Department Care Team (Late st Contact Info) Description 04/07/2024 9:00 EST Office Visit [facility] Endocrinology - [address] [address] Vincenzo Rawls MD [address] [facility] [address] [place] [address] 08/22/2024 15:30 EDT Telemedicine [facility] Nephrology - [address] [place] [address] [place], [place] [id number] Jose L Whitley MD [address] [facility], [address] [place] [phone] documented as of this encounter Visit Diagnoses Not on filedocumented in this encounter Care Teams Mill Set Up Relationship Specialty Start Date End Date Jennifer Ordoñez APRN 4 [facility] [place] [phone] PCP - General 03/22/18 07/06/22 documented as of this encounter
--- OUTSIDE RECORDS SUMMARY | 2024-03-17 12:19 | XMS_ITS | Encounter Summary ---
Author Organization [facility] Address [address] [place] [address] Care Team Providers Care Dental Assistant Instructor Name Role Phone Jennifer Ordoñez MAY Primary Care Provider + Reason for Visit * Reason Onset Date Comments [facility] 06/16/2018 Encounter Details Date Type Department Care Team (Late st Contact Info) Description 06/16/2018 Telephone [facility] General Surgery - [facility] [address] [place] [address] Li Carvajal, CHARLIE [address] [place] [address] [facility]) Social History Tobacco [...] Telephone Encounter - Li Carvajal RN - 06/16/2018 1137 EDT Called [facility] and let them know patient will not need services for perineal wound care any longer from them. He significant other will now do daily dressing changes 7 days a week, was doing them 4 x week previously. [facility] will check in to see if she is comfortable with her ostomy before discharging her all together. documented in this encounter Plan of Treatment Upcoming Encounters Date Type Department Care Team (Late st Contact Info) Description 04/07/2024 9:00 EST Office Visit [facility] Endocrinology - [facility] [address] [place], [place] [id number] Vincenzo Rawls MD [address] [facility] [address] [place] [address] 08/22/2024 15:30 EDT Telemedicine [facility] Nephrology - [facility] [address] [place] [address] Jose L Whitley MD [facility], [address] [place] [phone] documented as of this encounter Visit Diagnoses Not on filedocumented in this encounter Care Teams Dental Assistant Instructor Relationship Specialty Start Date End Date Jennifer Ordoñez APRN 4 [facility] [place] [phone] PCP - General 03/22/18 07/06/22 documented as of this encounter
--- OUTSIDE RECORDS SUMMARY | 2024-03-17 12:19 | XMS_ITS | Encounter Summary ---
Author Organization [facility] Address [address] [place] [address] Care Team Providers Care Dining Room Coordinator Name Role Phone Jennifer Ordoñez MAY Primary Care Provider + Reason for Visit * Reason Comments Follow-up 2mo f/u wound Ck Encounter Details Date Type Department Care Team (Late st Contact Info) Description 09/01/2018 10:30 EDT Office Visit [facility] General Surgery - [address] [address] Ryan Ruiz MD [address] [place] [address], [address] [place] [address] Encounter for post surgical wound [...] Refills Last Filled Start Date End Date ciprofloxacin HCl (CIPRO) 500 mg tablet Take 1 Tab by mouth 2 times daily for 7 days. 14 Tab 09/01/2018 09/08/2018 documented in this encounter Progress Notes * Ryan Ruiz MD, MD - 09/01/2018 1030 EDT Subjective: Patient ID: Zaira Collins is an 62 y.o. female. Chief Complaint Patient presents with ??? Follow-up 2mo f/u wound Ck HPI Cynthia is here in follow-up for her wound. This is a perineal wound after removal of her out of circuit anus done on April 15. The wound had some superficial breakdown and was receiving wound care with the visiting nurses. I saw her about 2 months ago. She states the wound was healing well. Then a few weeks ago she developed a pimple which caused some pain and then drained. Since then she is seen a little bit of drainage. She also has symptoms of a urinary tract infection and had a urinalysis done at her primary care office but has not received a prescription for antibiotics yet. Patient Active Problem List Diagnosis ??? Chronic [...] stones ??? [place] [facility] ??? Tachycardia rx with [...] No respiratory distress. Genitourinary: Genitourinary Comments: The perineal wound is healed with the exception of anteriorly and posteriorly there is a 2 mm opening at each location with some purulence that is draining. A small hemostat was placed into the anterior one and it does not track very far at all. The posterior one however tracks about a centimeter and a half. I was able to open up the wound approximately a centimeter and there is no further purulence. Gauze was used. Registered Nurse Bone Marrow Transplant was offered and she declined. Skin: Skin is warm and dry. No rash noted. No pallor. Psychiatric: Her behavior is normal. Judgment normal. Assessment: I think the central portion of the wound healed too quickly and left her with 2 small openings in 1of those probably closed and developed a small abscess. I reopened the wound in the office today. Plan: I placed her on ciprofloxacin for a week. I also asked her to shower and use the removable shower head to clean the wound every day. I will recheck her again in a month. (Z48.89) Encounter for post surgical wound check (primary encounter diagnosis) Ryan Ruiz MD Med Orders Placed This Visit and Additions to the Medication List Medications ??? ergocalciferol (DRISDOL; VITAMIN D2) 50,000 unit capsule Sig: Take 50,000 Units by mouth every 7 days. ??? ciprofloxacin HCl (CIPRO) 500 mg tablet Sig: Take 1 Tab by mouth 2 times daily for 7 days. Dispense: 14 Tab Refill: 0 documented in this encounter Plan of Treatment Upcoming Encounters Date Type Department Care Team (Late st Contact Info) Description 04/07/2024 9:00 EST Office Visit [facility] Endocrinology - [address] [phone] Vincenzo Rawls MD [address] [place] [address] [address] [place] [address] 08/22/2024 15:30 EDT Telemedicine [facility] Nephrology - [address] [phone] Jose L Whitley MD [address] [place], [place] [address], [address] [place] [address] documented as of this encounter Visit Diagnoses Diagnosis Encounter for post surgical wound check- Primary documented in this encounter Historical Medications * This list may reflect changes made after this encounter. ergocalciferol (DRISDOL; VITAMIN D2) 50,000 unit capsule Take 50,000 Units by mouth every 7 days. 04/29/2023 added in this encounter Care Teams Dining Room Coordinator Relationship Specialty Start Date End Date Jennifer Ordoñez, CONCRETE RUBBER [address] [place] [phone] PCP - General 03/22/18 07/06/22 documented as of this encounter
--- OUTSIDE RECORDS SUMMARY | 2024-03-17 12:19 | XMS_ITS | Encounter Summary ---
Author Organization [facility] Address [address] [place] [address] Care Team Providers Care Iron Molder Helper Name Role Phone Jennifer Ordoñez MAY Primary Care Provider + Reason for Visit * Reason Onset Date Comments Appointment Related 06/23/2019 Encounter Details Date Type Department Care Team (Late st Contact Info) Description 06/23/2019 Telephone [facility] Neurology - [address] [address] Unknown, Provider, Appointment Related Social History Tobacco [...] encounter Miscellaneous Notes * Telephone Encounter - Marybeth Evans - 07/18/2019 1503 EDT LMOM Called pt to schedule [facility] general neuro via zoom from [place] ?? Please assist with rescheduling nutrition club ambassador back ?? Third attempt closing referral * Telephone Encounter - Marybeth Evans - 07/07/2019 1426 EDT LMOM Called pt to schedule NPV general neuro via zoom from [place] Please assist with rescheduling nutrition club ambassador back * Telephone Encounter - Marybeth Evans - 07/05/2019 1408 EDT Called pt to schedule NPV general neuro from [place], unable to leave meaage * Telephone Encounter - Nancy Carey - 06/23/2019 1329 EDT Called patient to schedule NPV via televideo with Gen Neurology. Vm not set up yet. Could not leavemessage. documented in this encounter Plan of Treatment Upcoming Encounters Date Type Department Care Team (Late st Contact Info) Description 04/07/2024 9:00 EST Office Visit [facility] Endocrinology - [facility] [address] [place] [address] Vincenzo Rawls MD [address] [facility] [address] [place] [address] 08/22/2024 15:30 EDT Telemedicine [facility] Nephrology - [address] [phone] Jose L Whitley MD [facility] [address] [place] [phone] documented as of this encounter Visit Diagnoses Not on filedocumented in this encounter Care Teams Iron Molder Helper Relationship Specialty Start Date End Date Jennifer Ordoñez APRN [address] [place] [phone] PCP - General 03/22/18 07/06/22 documented as of this encounter
--- OUTSIDE RECORDS SUMMARY | 2024-03-17 12:19 | XMS_ITS | Encounter Summary ---
Author Organization [facility] Address [address] [place] [address] Care Team Providers Care Real Estate Consultant Name Role Phone Jennifer Ordoñez MAY Primary Care Provider + Reason for Visit * Reason Onset Date Comments Appointment Related 04/11/2019 Encounter Details Date Type Department Care Team (Late st Contact Info) Description 04/11/2019 Telephone [facility] Nephrology - [address] [address] Jose L Whitley MD [address] [place] [address], [address] [place] [address] Appointment Related Social History Tobacco [...] * Telephone Encounter - Fritz Acevedo - 05/17/2019 1511 EST 3rd attempt to reschedule bumped apt * Telephone Encounter - Fritz Acevedo - 05/13/2019 1441 EST 2nd attempt to schedule - lmom * Telephone Encounter - Fritz Acevedo - 04/11/2019 1105 EST LMOM letting pt know that we need to reschedule her 06/12 apt with [place]. Please reschedule to next available documented in this encounter Plan of Treatment Upcoming Encounters Date Type Department Care Team (Late st Contact Info) Description 04/07/2024 9:00 EST Office Visit [facility] Endocrinology - [address] [address] Vincenzo Rawls MD [address] [facility] [address] [place] [address] 08/22/2024 15:30 EDT Telemedicine [facility] Nephrology - [address] [place], [place] [phone] Jose L Whitley MD [address] [facility] [address] [place] [address] documented as of this encounter Visit Diagnoses Not on filedocumented in this encounter Care Teams Real Estate Consultant Relationship Specialty Start Date End Date Jennifer Ordoñez APRN [address] [place] [address] PCP - General 03/22/18 07/06/22 documented as of this encounter
--- OUTSIDE RECORDS SUMMARY | 2024-03-17 12:19 | XMS_ITS | Encounter Summary ---
Author Organization [facility] Address [address] [place] [address] Care Team Providers Care Belt Cleaner Name Role Phone Jennifer Ordoñez APRN Primary Care Provider + Reason for Referral * (Routine) - Receiving Office to Obtain Authorization Specialty Diagnoses / Procedures Referred By Contac t Referred To Contact Lynn Lucas MD [address] [place] [address] Phone: tel: fax: Referral ID Status Reason Start Date Expiration Date Visits Requested Visits Authorized [id number] Receiving Office to Obtain Authorization Specialty Services Required 9 1 1 Comments We are currently collecting quality data on patients having surgery. You may receive a phone call, email, and/or letter about your surgery asking you a series of follow up questions to evaluate specifics aspects of your care. Thank you for your participation. * (Routine) - Receiving Office to Obtain Authorization Specialty Diagnoses / Procedures Referred By Contac t Referred To Contact Lynn Lucas MD [address] [place] [address] Phone: tel: fax: Referral ID Status Reason Start Date Expiration Date Visits Requested Visits Authorized [id number] Receiving Office to Obtain Authorization Specialty Services Required 9 1 1 Comments Please follow-up with Dr. Ruiz at your previously scheduled appointment on 12/08. Please call our clinic at [phone] with any questions or concerns. Encounter Details Date Type Department Care Team (Late st Contact Info) Description 10/27/2018 10:37 EDT - 10/27/2018 14:58 EDT Hospital Encounter [facility] - [facility] [address] [place], [place] [address] Ryan Ruiz MD [address] [facility], [address] [place] [address] Encounter for post surgical wound check Discharge Disposition: Home or Self Care Social [...] Sign Reading Time Taken Comments Blood Pressure 101/66 10/27/2018 1430 EDT Pulse - - Temperature 35.9 ??C (96.6 ??F) 10/27/2018 1430 EDT Respiratory Rate 20 10/27/2018 1430 EDT Oxygen Saturation 100% 10/27/2018 1430 EDT Inhaled Oxygen Concentration - - Weight 41.7 kg (92 lb) 10/26/2018 1542 EDT Height 149.9 cm (4' 11) 10/26/2018 1542 EDT Body Mass Index 18.58 10/26/2018 1542 EDT documented in this encounter Functional Status [...] documented in this encounter Discharge Diagnoses Diagnosis T81.31XA Disruption of external operation (surgical) wound, not elsewhere classified, initial encounter-T81.31XA[ICD-10-CM] 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 DULoxetine (CYMBALTA) 30 mg delayed release capsule Take 1 Capsule by mouth daily. estradioL (ESTRACE) 0.5 mg tablet Take 0.5 Tablets by mouth daily. 1/2 tab daily ONDANSETRON HCL ORAL Take 4 mg by [...] Units by mouth every 7 days. 4 ibuprofen (MOTRIN) 200 mg tablet Take 1 Tab by mouth every 6 hours. Please alternate taking with Tylenol so you are taking one or the other every three hours. 1 Tab 10/27/2018 9 magnesium oxide (MAG-OX) 400 mg tablet Take 800 mg by mouth daily. 09/01/2013 2 metoprolol (LOPRESSOR) 25 mg tablet Take 12.5 mg by mouth daily. 2 documented as of this encounter Ordered Prescriptions Prescription Sig Dispense Quantity Refills Last Filled Start Date End Date ibuprofen (MOTRIN) 200 mg tablet Take 1 Tab by mouth every 6 hours. Please alternate taking with Tylenol so you are taking one or the other every three hours. 1 Tab 10/27/2018 9 acetaminophen (TYLENOL) 325 mg tablet Take 3 Tabs by mouth every 6 hours. Please alternate taking with ibuprofen so you are taking one or the other every three hours. 1 Tab 10/27/2018 4 documented in this encounter Discharge Disposition Disposition Code Departure Means Destination Home or Self Care documented in this encounter Progress Notes * Юлия Perez RN - 10/26/2018 1542 EDT Zaira Collins has been instructed as follows regarding medication administration for the day of the scheduled procedure. Date of Surgery: 10/27/2018 Instructions for Taking Medications Day of Surgery Medication Sig Last Dose Hold DOS Take DOS acetaminophen (TYLENOL) 325 mg tablet Take 3 Tabs by mouth every 6 hours as needed for Pain. Yes cyanocobalamin (VITAMIN B-12) 1,000 mcg/mL injection Inject 1,000 mcg into the muscle every 28 days. 10/15/2018 cyclobenzaprine (FLEXERIL) 10 mg tablet Take 10 mg by mouth 3 times daily. Yes DULoxetine (CYMBALTA) 60 mg capsule Take 30 mg by mouth daily. Yes ergocalciferol (DRISDOL; VITAMIN D2) 50,000 unit capsule Take 50,000 Units by mouth every 7 days. 10/25/2018 ESTRADIOL ORAL Take 1 tablet by mouth daily. Yes magnesium oxide (MAG-OX) 400 mg tablet Take 800 mg by mouth 2 times daily. 10/26/2018 metoprolol (LOPRESSOR) 25 mg tablet Take 25 mg by mouth daily. Yes ONDANSETRON HCL ORAL Take 4 mg by mouth 3 times daily. Yes potassium chloride (MICRO-K) 10 mEq capsule Take 20 mEq by mouth 2 times daily. 10/26/2018 sodium bicarbonate 650 mg tablet Take 3 Tabs by mouth 4 times daily. 10/26/2018 documented in this encounter H&P Notes * Lynn Lucas MD - 10/27/2018 1223 EDT The preoperative history and physical which was performed within 30 days of this procedure has beenreviewed and the clinically appropriate elements of the physical examination have been repeated. There are no changes to the documented history and physical or if so such changes are documented below. Lynn Lucas MD 10/27/2018 12:23 Cosigned by Ryan Ruiz MD at 10/27/2018 12:28 EDT Source Note - Ryan Ruiz MD, MD - 10/06/2018 10:00 EDT Subjective: Patient ID: Zaira Collins is [...] been coming every week and have been probing the wound and state that it is [...] stones ??? 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 Tachycardia rx with [...] under Local with IV sedation at the [facility]. (Z48.89) Encounter for post surgical [...] OR Surgeon - Ryan Ruiz MD - 10/27/2018 0000 EDT OPERATIVE REPORT SERVICE DATE: 10/27/2018 PREOPERATIVE DIAGNOSIS: Nonhealing perineal wound. POSTOPERATIVE DIAGNOSIS: Nonhealing perineal wound. PROCEDURE: Opening and debridement of a perianal wound measuring 3 x 1 x 4 cm. SURGEON: Ryan Ruiz MD FACS FASCRS SECURITY DISPATCHER: Jovani Lux MS4 ANESTHESIA: Local with IV sedation. INDICATIONS: Cynthia is a woman I had performed a completion proctectomy/removal of the anus on. Her perineal wound has not healed well. We have tried multiple things in the outpatient setting and it hasfailed to heal and she has got a couple of small openings that intermittently are draining. My suspicion in the office was that she had a chronic cavity full of granulation tissue and I recommended that we come to the operating room so that I could open it up and debride it. The risks, benefits, possible outcomes, complications and alternatives were explained to the patient. Written informed consent was obtained. NARRATIVE: The patient was brought to the operating room and placed in supine position on the OR table. SCDs were applied. After completion of a safety checklist, she was given IV sedation by the anesthesiologist and then placed in lithotomy with careful padding of the extremities. The perineum wasprepped and draped in usual sterile fashion. A final pause was held in which correct patient and procedure to be performed was confirmed by those present. Bilateral pudendal nerve blocks were performed with a buffered solution of long- and short- and local anesthetic. Careful examination was then performed. She had 1 larger opening in the middle of theperineal wound that was about 8 mm. Anterior and posterior to that, she had smaller openings that were about 2 mm. A fistula probe was passed from the posterior opening and it tracked right to the central opening. The anterior opening was then probed and it went all the way posteriorly to the posterior opening. Therefore, I knew there was 1 large tract. Local anesthetic was injected into the skinoverlying the probe and then cautery was used to lay open the skin. We encountered a cavity that was 4 cm in length, 3 cm in depth and 1 cm in width. It was full of granulation tissue. This was curetted to clean the wound until it had white healthy bleeding base. Cautery was used for hemostasis. The wound was then packed with gauze and dressed with 4 x 4s. I was present and scrubbed for the entire case. She tolerated the procedure well. Unless otherwise noted, there were no complications, no blood loss, no cultures obtained, no specimens removed, and no drains retained. Ryan Ruiz MD FACS FASCRS 01 59 PM / Ryan Ruiz MD FACS FASCRS cn Confirmation: [id number] Dictation ID: [id number] cc:Jennifer Ordoñez WAYBILL CLERK documented in this encounter Miscellaneous Notes * Anesthesia Post-Eval - Bull Potter MD, MD - 10/27/2018 1458 EDT Anesthesia Post op Note Zaira Collins [id number] Anesthesia received: MAC; Vital Signs: Temp: 35.9 ??C (96.6 ??F), Heart Rate: 77 BPM, BP: 101/66, Resp: 20, SpO2: 100 % Vital signs Stable: Yes Consciousness: Recovered to baseline Patient's participation in evaluation:Able to participate Temperature Status: Normothermic Respiratory Status: Airway patent Supplemental O2: Room air Oxygen Saturation: Within patient's normal range Cardiovascular Status: Within patient's normal range Post-op Hydration: Adequate Nausea / Vomiting: None Pain Control: Adequate Current Pain Score: Numeric Pain Level (Scale 1-10): 2 Post-op Assessment: Tolerated procedure well, Patient satisfied with anesthesia Disposition: Home Complications: No apparent anesthetic complications Bull Potter MD 10/27/2018 16:00 documented in this encounter Plan of Treatment Upcoming Encounters Date Type Department Care Team (Late st Contact Info) Description 04/07/2024 9:00 EST Office Visit [facility] Endocrinology - [address] [address] Vincenzo Rawls MD [address] [place] [address] [address] [place] [address] 08/22/2024 15:30 EDT Telemedicine [facility] Nephrology - [address] [place] [address] Jose L Whitley MD [facility], [address] [place] [phone] Scheduled Referrals Name Type Priority Associated Diagnoses Order Schedule PROVIDER FOLLOW-UP INSTRUCTIONS Outpatient Referral Routine Ordered: 10/27/2018 PROVIDER FOLLOW-UP INSTRUCTIONS Outpatient Referral Routine Ordered: 10/27/2018 documented as of this encounter Visit Diagnoses Diagnosis Encounter for post surgical wound check documented in this encounter Administered Medications Inactive Administered Medications - up to 3 most recent administrations Medication Order MAR Action Action Date Dose Rate Site acetaminophen (TYLENOL) 500 mg tablet 1 dose, Starting on Thu10/27/18 at 1419, Until Thu10/27/18 at 1421 acetaminophen (TYLENOL) tablet 500 mg 500 mg, oral, PRN, 1 dose, Starting on Thu10/27/18 at 1403, Until Thu10/27/18 at 1421, Fever, Routine, Recovery (only) Given 10/27/2018 14:21 EDT 500 mg atropine 0.1 mg/mL syringe 0.5 mg 0.5 mg, intravenous, PRN, Starting on Thu10/27/18 at 1403, Until Thu10/27/18 at 1704, Symptomatic HR < 50, Routine, Recovery (only) diphenhydrAMINE (BENADRYL) injection 12.5 mg 12.5 mg, intravenous, PRN, 1 dose, Starting on Thu10/27/18 at 1403, Until Thu10/27/18 at 1704, nausea, Routine, Recovery (only) fentaNYL citrate (PF) injection 25-50 mcg 25-50 mcg, intravenous, EVERY 5 MIN PRN, Starting on Thu10/27/18 at 1403, Until Thu10/27/18 at 1704, Pain, Routine, Recovery (only) lactated ringers (LR) infusion 25 mL/hr, intravenous, CONTINUOUS, Starting on Thu10/27/18 at 1130, Until Thu10/27/18 at 1704, Routine, Pre-Op DOS Rx ApprovedIndications:Encounter for post surgical wound check New Bag 10/27/2018 12:17 EDT 25 mL/hr 25 mL/hr lactated ringers (LR) infusion at 75 mL/hr, intravenous, CONTINUOUS, Starting on Thu10/27/18 at 1430, Until Thu10/27/18 at 1704, Routine, Recovery (only) naloxone (NARCAN) injection 0.2 mg 0.2 mg, intravenous, PRN, Starting on Thu10/27/18 at 1403, Until Thu10/27/18 at 1704, Opioid Reversal, Routine, Recovery (only) ondansetron (PF) (ZOFRAN) injection 4 mg 4 mg, intravenous, PRN, 1 dose, Starting on Thu10/27/18 at 1403, Until Thu10/27/18 at 1704, Nausea, Vomiting, Routine, Recovery (only) documented in this encounter Discontinued Medications Medication Sig Discontinue Reason Start Date End Da te BIOTIN ORAL Take 5,000 mg by mouth daily. Therapy completed 10/26/2018 Ginkgo Biloba 40 mg tablet Take 60 mg by mouth daily. Therapy completed 10/26/2018 Cyanocobalamin 1,000 mcg TbER Take by mouth. Therapy completed 10/26/2018 DIAZepam (VALIUM) 5 mg tablet Take 5 mg by mouth 2 times daily. Therapy completed 10/26/2018 estradiol (VIVELLE) 0.025 mg/[address] 1 Patch onto the skin once a week. Alternate therapy 10/26/2018 HYDROmorphone (DILAUDID) 2 mg tablet Take 1 Tab by mouth every 4 hours as needed for Pain. Daily Max: 12 mg Therapy completed 04/16/2018 10/26/2018 loperamide (IMODIUM A-D) 2 mg tablet Take 2 mg by mouth 2 times daily as needed for Diarrhea. Therapy completed 10/26/2018 acetaminophen (TYLENOL) 325 mg tablet Take 3 Tabs by mouth every 6 hours as needed for Pain. Reorder 01/25/2014 10/27/2018 documented as of this encounter Active and Recently Administered Medications Times are shown in EDT. Continuous Medication Order 10/25/2018 10/26/2018 10/27/2018 lactated ringers (LR) infusion 25 mL/hr, intravenous, CONTINUOUS, Starting on Thu10/27/18 at 1130, Until Thu10/27/18 at 1704, Routine, Pre-Op DOS Rx Approved 1217 (New Bag - Prov ider: Ellie Wilcox RN) lactated ringers (LR) infusion at 75 mL/hr, intravenous, CONTINUOUS, Starting on Thu10/27/18 at 1430, Until Thu10/27/18 at 1704, Routine, Recovery (only) 1430 (Canceled Entry - Provider: Batch Job User Admin - Comment: Automatically canceled at discontinue of medication order) PRN Medication Order 10/25/2018 10/26/2018 10/27/2018 acetaminophen (TYLENOL) tablet 500 mg (COMPLETED)(Linked Group 1) 500 mg, oral, PRN, 1 dose, Starting on Thu10/27/18 at 1403, Until Thu10/27/18 at 1421, Fever, Routine, Recovery (only) 1421 (Given - Provid er: Ronnie Newsome RN) atropine 0.1 mg/mL syringe 0.5 mg 0.5 mg, intravenous, PRN, Starting on Thu10/27/18 at 1403, Until Thu10/27/18 at 1704, Symptomatic HR < 50, Routine, Recovery (only) diphenhydrAMINE (BENADRYL) injection 12.5 mg 12.5 mg, intravenous, PRN, 1 dose, Starting on Thu10/27/18 at 1403, Until Thu10/27/18 at 1704, nausea, Routine, Recovery (only) fentaNYL citrate (PF) injection 25-50 mcg 25-50 mcg, intravenous, EVERY 5 MIN PRN, Starting on Thu10/27/18 at 1403, Until Thu10/27/18 at 1704, Pain, Routine, Recovery (only) naloxone (NARCAN) injection 0.2 mg 0.2 mg, intravenous, PRN, Starting on Thu10/27/18 at 1403, Until Thu10/27/18 at 1704, Opioid Reversal, Routine, Recovery (only) ondansetron (PF) (ZOFRAN) injection 4 mg 4 mg, intravenous, PRN, 1 dose, Starting on Thu10/27/18 at 1403, Until Thu10/27/18 at 1704, Nausea, Vomiting, Routine, Recovery (only) Linked Groups Order Group 1: acetaminophen (TYLENOL) solution unit dose cup 495 mg (COMPLETED) 495 mg (rounded from 500 mg), oral, PRN, 1 dose, Starting on Thu10/27/18 at 1403, Until Thu10/27/18 at 1421, Fever, Routine, Recovery (only) Or acetaminophen (TYLENOL) tablet 500 mg (COMPLETED)Jump to med 500 mg, oral, PRN, 1 dose, Starting on Thu10/27/18 at 1403, Until Thu10/27/18 at 1421, Fever, Routine, Recovery (only) documented in this encounter Orders Medications Ordered That Gerald ht Not Have Been Administered Count Last Ordered Date First Ordered Date acetaminophen (TYLENOL) solu tion unit dose cup 495 mg 1 10/27/2018 atropine 0.1 mg/mL syringe 0.5 mg 1 019 diphenhydrAMINE (BENADRYL) i njection 12.5 mg 1 10/27/2018 fentaNYL citrate (PF) injection 25-50 mcg 1 10/27/2018 lactated ringers (LR) infusion 1 10/27/2018 naloxone (NARCAN) injection 0.2 mg 1 2018 ondansetron (PF) (ZOFRAN) injection 4 mg 1 10/27/2018 Diet Count Last Ordered Date First Orde red Date DISCHARGE DIET 1 10/27/2018 Nursing Count Last Ordered Date First Orde red Date DRIVING INSTRUCTIONS 1 10/27/2018 WOUND CARE INSTRUCTIONS 1 10/27/2018 Admission Count Last Ordered Date First Orde red Date STATUS: OUTPATIENT SURGICAL OP BED/SERVICES 1 10/27/2018 Transfer Count Last Ordered Date First Orde red Date NOTIFY PPS PACU PATIENT DISCHARGE 1 019 NOTIFY PPS PATIENT ARRIVAL IN PACU 1 2018 Discharge Count Last Ordered Date First Orde red Date DISCHARGE PATIENT 1 10/27/2018 Legal Count Last Ordered Date First Orde red Date MISCELLANEOUS DISCHARGE INSTRUCTIONS 2 10/14 documented in this encounter Care Teams Belt Cleaner Relationship Specialty Start Date End Date Jennifer Ordoñez, WAYBILL CLERK [address] [place] [phone] PCP - General 03/22/18 07/06/22 documented as of this encounter
--- OUTSIDE RECORDS SUMMARY | 2024-03-17 12:19 | XMS_ITS | Encounter Summary ---
Author Organization [facility] Address [address] [place] [address] Care Team Providers Care Buffet Attendant Name Role Phone Jennifer Ordoñez MAY Primary Care Provider + Reason for Visit * Reason Comments Post-OP Follow Up Encounter Details Date Type Department Care Team (Late st Contact Info) Description 12/08/2018 9:00 EDT Post-op Visit [facility] General Surgery - [address] [phone] Ryan Ruiz MD [address] [place] [address], [address] [place] [address] Postop check (Primary Dx) Social [...] - - Weight 44 kg (97 lb) 12/08/2018 0902 EDT Height 149.9 cm (4' 11) 12/08/2018 0902 EDT Body Mass Index 19.59 12/08/2018 09 EDT documented in this encounter Functional Status [...] Progress Notes * Ryan Ruiz MD - 12/08/2018 0900 EDT FOLLOW UP OFFICE VISIT Today's date: 12/08/2018 Surgery: Perineal wound debridement on 10/27 Subjective: Zaira is here for her first postoperative check. She states that the wound has been doing well. Visiting nursing is coming in once a week and packing it and doing some gentle debridement. Otherwise she does it every day with the help of her , typically after the shower. She denies any pain, pressure, or significant discharge. Objective: Ht (!) 149.9 cm (59) Wt (!) 44 kg (97 lb) BMI 19.59 kg/m?? Physical exam: General Appearance: Looks well Abdomen: Not examined Incision(s)/Wound(s): location: The perineal wound has good granulation and is beginning to epithelialize. Its about a centimeter deep and 2 cm wide. I applied silver nitrate to the cannulation tissue Path: na Assessment/Plan: Her wound is healing in nicely. She will come back in 6 weeks for a wound check. Ryan Ruiz MD 12/08/2018 9:04 documented in this encounter Plan of Treatment Upcoming Encounters Date Type Department Care Team (Late st Contact Info) Description 04/07/2024 9:00 EST Office Visit [facility] Endocrinology - [facility] [address] [place] [address] Vincenzo Rawls MD 62 [facility] [address] [place] [phone] 08/22/2024 15:30 EDT Telemedicine [facility] Nephrology - [facility] [address] [place], [place] [phone] Jose L Whitley MD [facility], [address] [place] [phone] documented as of this encounter Visit Diagnoses Diagnosis Postop check- Primary Follow-up examination, following unspecified surgery documented in this encounter Care Teams Buffet Attendant Relationship Specialty Start Date End Date Jennifer Ordoñez APRN [address] [place] [address] PCP - General 03/22/18 07/06/22 documented as of this encounter
--- OUTSIDE RECORDS SUMMARY | 2024-03-17 12:19 | XMS_ITS | Encounter Summary ---
Author Organization [facility] Address [address] [place] [address] Care Team Providers Care Shipping Manager Name Role Phone Jennifer Ordoñez MAY Primary Care Provider + Reason for Visit * Reason Onset Date Comments Medications Refill 04/30/2018 Encounter Details Date Type Department Care Team (Late st Contact Info) Description 04/30/2018 Telephone [facility] General Surgery - [facility] [address] [place] [address] Ryan Ruiz MD [address] [facility], [address] [place] [address] Medications Refill Social History Tobacco Use Types Packs/Day Years [...] Telephone Encounter - Li Carvajal RN - 04/30/2018 0946 EST I have spoken with Lesly GUERRA at Dr Ordoñez office PCP. See staff message below. Lesly feels that she needs something besides tylenol to get her through to her visit with Dr Ruiz on Thursday05/05/18. I have suggested that they order tramadol for her as both MD office's should not be prescribing the pain medication. Dr Ruiz feels that the PCP should now be the ordering provider. Lesly will plan for enough tramadol until her next visit 05/05/18. ----- Message from Flori Manning RN sent at 04/30/2018 9:43 EST ----- Regarding: FW: Pain meds ----- Message ----- From: Ryan Ruiz MD Sent: 04/27/2018 20:37 To: Flori Manning RN Subject: RE: Pain meds Given surgery was 04/15 and she went back to PCP for pain meds on 04/23 she should continue to receivefrom them. Thanks [facility] ----- Message ----- From: Flori Manning, RN Sent: 04/27/2018 14:43 To: Ryan Ruiz MD Subject: Pain meds Hi Dr. Lulú Meneses is calling looking for a refill of her Dilaudid. She said she has 2 or 3 left.She states she is taking 1 tab twice a day and is taking 2 Tylenol every 6 hours. She has most recently gotten a script for 14 tabs from her PCP on 04/23. Should she continue to go through PCP for further refills, or can we refill it for her? Thanks * Telephone Encounter - Delilah Shaw - 04/30/2018 0937 EST S/P perineal completion proctectomy on 04/15/18. Nurse calling as patient is asking for more pain medication (Dilaudid). documented in this encounter Plan of Treatment Upcoming Encounters Date Type Department Care Team (Late st Contact Info) Description 04/07/2024 9:00 EST Office Visit [facility] Endocrinology - [address] [address] Vincenzo Rawls MD [address] [place] [address] [address] [place] [address] 08/22/2024 15:30 EDT Telemedicine [facility] Nephrology - [address] [phone] Jose L Whitley MD [address] [place], [place] [address], [address] [place] [phone] documented as of this encounter Visit Diagnoses Not on filedocumented in this encounter Care Teams Shipping Manager Relationship Specialty Start Date End Date Jennifer Ordoñez APRN [address] [place] [phone] PCP - General 03/22/18 07/06/22 documented as of this encounter
--- OUTSIDE RECORDS SUMMARY | 2024-03-17 12:19 | XMS_ITS | Encounter Summary ---
Author Organization [facility] Address [address] [place] [address] Care Team Providers Care Yellow Pages Space Salesperson Name Role Phone Jennifer Ordoñez MAY Primary Care Provider + Encounter Details Date Type Department Care Team (Late st Contact Info) Description 11/14/2019 Abstract [facility] Nephrology - [address] [address] Jose L Whitley MD 1 [facility], [address] [place] [address] Social History Tobacco Use Types [...] [facility] - [facility] [address] [place], [place] [phone] Vincenzo Rawls MD 62 [facility] [address] [place] [phone] 08/22/2024 15:30 EDT Telemedicine [facility] Nephrology - [address] [address] Jose L Whitley MD [address] [facility] [place], [address] [place] [phone] documented as of this encounter Procedures Procedure Name Priority Date/Time Associated Diagnosis Comments MAGNESIUM Routine 11/11/2019 11:35 EDT BASIC METABOLIC PANEL (BMP) Routine 11/11/2019 11:35 EDT documented in this encounter Results * MAGNESIUM (11/11/2019 11:35 EDT) Magnesium, External 1.6 [facility] Blood VENOUS BLOOD / Unknown 11/11/2019 11:35 EDT us Historical Provider MD CHEMISTRY & BLOOD GAS ORD ERABLES Final Result Performing Organization Address City/[facility]/ZIP Co de Phone Number [facility] * BASIC METABOLIC PANEL (BMP) (11/11/2019 11:35 EDT) GFR, Calculated, External 39 [facility] Glucose, Serum, External 88 [facility] Calculated Calcium, External [facility] BUN, External 21 [facility] Calcium, External 8.8 [facility] Chloride, External 108 [facility] CO2, External 22 [facility] Creatinine, External 1.37 [facility] Fasting?, External [facility] Potassium, External 4.2 [facility] Sodium, External 143 [facility] Blood VENOUS BLOOD / Unknown 11/11/2019 11:35 EDT Historical Provider CHEMISTRY & BLOOD GAS ORD ERABLES Final Result Performing Organization Address City/[facility] Co de Phone Number [facility] documented in this encounter Visit Diagnoses Not on filedocumented in this encounter Care Teams Yellow Pages Space Salesperson Relationship Specialty Start Date End Date Jennifer Ordoñez, MACHINE QUILT STUFFER [address] [place] [phone] PCP - General 03/22/18 07/06/22 documented as of this encounter
--- OUTSIDE RECORDS SUMMARY | 2024-03-17 12:19 | XMS_ITS | Encounter Summary ---
Author Organization [facility] Address [address] [place] [address] Care Team Providers Care Sign Poster Name Role Phone Jennifer Ordoñez MAY Primary Care Provider + Reason for Visit * Reason Onset Date Comments Other 04/27/2018 Encounter Details Date Type Department Care Team (Late st Contact Info) Description 04/27/2018 Telephone [facility] General Surgery - [address] [address] Ryan Ruiz MD [address] [place] [address], [address] [place] [address] Other Social History Tobacco Use [...] encounter Miscellaneous Notes * Telephone Encounter - Flori Manning RN - 04/27/2018 1647 EST Zaira is calling requesting a refill of her dilaudid. She initially stated that she is only taking 2 a day, because she only got [address] Ruiz and is trying to make them last and only has 2 left. She is taking Tylenol Q6H. On VPMS query, she filled a prescription through her PCP for 14 more dilaudid, filled 04/23/18. Confirmed with PCP. Discussed with patient who confirmed that this was the prescription she only has 3 left from. She reiterated that she was only taking 2 a day to take the edge off the pain. Reviewed with Dr. Ruiz- patient to discuss with primary care for further refills. She voiced understanding and will call back as needed * Telephone Encounter - Kelly Marrufo - 04/27/2018 1400 EST Pt asking to speak with RN/ pt is requesting another script of a few more pain pills/ documented in this encounter Plan of Treatment Upcoming Encounters Date Type Department Care Team (Late st Contact Info) Description 04/07/2024 9:00 EST Office Visit [facility] Endocrinology - [facility] [address] [place], [place] [phone] Vincenzo Rawls MD 62 [facility] [address] [place] [phone] 08/22/2024 15:30 EDT Telemedicine [facility] Nephrology - [address] [phone] Jose L Whitley MD [address] [place] [address], [address] [place] [phone] documented as of this encounter Visit Diagnoses Not on filedocumented in this encounter Care Teams Sign Poster Relationship Specialty Start Date End Date Jennifer Ordoñez APRN 4 [facility] [place] [phone] PCP - General 03/22/18 07/06/22 documented as of this encounter
--- OUTSIDE RECORDS SUMMARY | 2024-03-17 12:20 | XMS_ITS | Encounter Summary ---
Author Organization [facility] Address [address] [place] [address] Care Team Providers Care Tool And Gauge Inspector Name Role Phone Mary Ann Goodman MD Primary Care Provider Unavailable Encounter Details Date Type Department Care Team (Late Contact Info) Description 09/30/2013 Abstract [facility] Nephrology - [facility] 1 [place] [address] Giovanni Anthony MD [address] [place] [phone] Social History Tobacco Use Types Packs/Day Years [...] on file documented as of this encounter Plan of Treatment Upcoming Encounters Date Type Department Care Team (Late Contact Info) Description 04/07/2024 9:00 EST Office Visit [facility] Endocrinology - [facility] [address] [place] [address] Vincenzo Rawls MD 62 [facility] [address] [place] [address] 08/22/2024 15:30 EDT Telemedicine [facility] Nephrology - [address] [place] [address] [place], [place] [address] Jose L Whitley MD 1 [facility], [address] [place] [phone] documented as of this encounter Procedures Procedure Name Priority Date/Time Associated Diagnosis Comments NEPHROLOGY PROFILE (INCLUDES BUN, CREATININE, CALCULATED GFR, ELECTROLYTES, CALCIUM, PHOSPHORUS, ALBUMIN) Routine 09/30/2013 MAGNESIUM Routine 09/30/2013 GLUCOSE, SERUM Routine 09/30/2013 documented in this encounter Results * NEPHROLOGY PROFILE (INCLUDES BUN, CREATININE, CALCULATED GFR, ELECTROLYTES, CALCIUM, PHOSPHORUS, ALBUMIN) (09/30/2013) Phosphorus, External 4.1 [facility] Albumin, External 3.9 [facility] BUN, External 18 [facility] Chloride, External 105 [facility] Creatinine, External 1.30 [facility] Potassium, External 4.6 [facility] GFR, Calculated, External 42 [facility] Calculated Calcium, External [facility] Calcium, External 9.3 [facility] Sodium, External 142 [facility] CO2, External 23.0 [facility] Blood specimen (specimen) 09/30/2013 us Giovanni Anthony MD PACKAGES & DNA PROBE ORDER BRYAN Final Result [facility] * GLUCOSE, SERUM (09/30/2013) Glucose, Serum, External 104 [facility] Blood specimen (specimen) 09/30/2013 us Giovanni Anthony MD CHEMISTRY & BLOOD GAS ORDE ZOEY Final Result [facility] * MAGNESIUM (09/30/2013) Magnesium, External 1.9 [facility] Blood specimen (specimen) 09/30/2013 us Giovanni Anthony MD CHEMISTRY & BLOOD GAS ORDE ZOEY Final Result Performing Organization Address City/[facility] Co de Phone Number [facility] documented in this encounter Visit Diagnoses Not on filedocumented in this encounter Care Teams Tool And Gauge Inspector Relationship Specialty Start Date End Date Mary Ann Goodman MD PCP - General 08/02/08 03/21/18 documented as of this encounter
--- OUTSIDE RECORDS SUMMARY | 2024-03-17 12:20 | XMS_ITS | Encounter Summary ---
Author Organization [facility] Address [address] [place] [address] Care Team Providers Care Operations General Agent Name Role Phone Mary Ann Goodman MD Primary Care Provider Unavailable Encounter Details Date Type Department Care Team (Late st Contact Info) Description 11/25/2017 Results Only [facility] [phone] Unknown, Provider, MD Social History Tobacco Use Types Packs/Day [...] as of this encounter Functional Status * Because of a physical, mental, or emotional condition, does this person have difficulty doing errands alone such as visiting a doctor's office or shopping? Answer Date of Assessment Author No 01/07/2016 13:00 EDT documented as of this encounter Mental Status * Because of a physical, mental, or emotional condition, does this person have serious difficulty concentrating, remembering, or making decisions? Answer Entry Date Author No 01/07/2016 13:00 EDT documented in this encounter Plan of Treatment Upcoming Encounters Date Type Department Care Team (Late st Contact Info) Description 04/07/2024 9:00 EST Office Visit [facility] Endocrinology - [address] [address] Vincenzo Rawls MD 62 [facility] [address] [place] [address] 08/22/2024 15:30 EDT Telemedicine [facility] Nephrology - [address] [place] [address] [place], [place] [phone] Jose L Whitley MD 1 [facility], [address] [place] [phone] documented as of this encounter Procedures Procedure Name Priority Date/Time Associated Diagnosis Comments CREATININE, ISTAT Routine 11/25/2017 10: 03 EDT documented in this encounter Results * (ABNORMAL) CREATININE, ISTAT (11/25/2017 10:03 EDT) Creatinine, i-STAT 2.1(H) 0.6 - 1.3 mg/dl 11/25/2017 10:08 EDT [facility] core laying machine operator ID [id number] 11/25/2017 10:08 EDT [facility] Comment:Test performed by [facility] [employer]. BLOOD SPECIMEN / Unknown 11/25/2017 10:03 EDT 11/25/2017 10:08 EDT us Provider Unknown POINT OF CARE TEST ORDERABLE S Final Result [facility] [address] [place] [address] documented in this encounter Visit Diagnoses Not on filedocumented in this encounter Care Teams Operations General Agent Relationship Specialty Start Date End Date Mary Ann Goodman MD PCP - General 08/02/08 03/21/18 documented as of this encounter
--- OUTSIDE RECORDS SUMMARY | 2024-03-17 12:20 | XMS_ITS | Encounter Summary ---
Author Organization [facility] Address [address] [place] [address] Care Team Providers Care Line Installer Repairer Name Role Phone Mary Ann Goodman MD Primary Care Provider Unavailable Reason for Visit * Reason Comments New Patient Visit anal fistula. * Consult (Routine) - Closed Specialty Diagnoses / Procedures [facility] Referred To Contact General Surgery Diagnoses Perineal fistula Mary Ann Goodman MD Moore, Jesse Samuel, MD Phone: tel: fax: Referral ID Status Reason Start Date Expiration Date Visits Re quested Visits Authorized [id number] Closed 1 1 Encounter Details Date Type Department Care Team (Late st Contact Info) Description 11/04/2017 11:30 EDT Office Visit [facility] General Surgery - [address] [phone] Ryan Ruiz MD [address] [place] [address], [address] [place] [phone] Crohn's disease with complication, unspecified gastrointestinal tract location (HCC-CMS) (Primary Dx) Social History Tobacco Use Types Packs/Day Years Used Date Smoking Tobacco: Every Day Cigarettes Smokeless Tobacco: Never Tobacco Cessation:Ready to Q [...] Sign Reading Time Taken Comments Blood Pressure 112/76 11/04/2017 1129 EDT Pulse 90 11/04/2017 1129 EDT Temperature - - Respiratory Rate - - Oxygen Saturation - - Inhaled Oxygen Concentration - - Weight 41.7 kg (92 lb) 11/04/2017 1129 EDT Height 149.9 cm (4' 11) 11/04/2017 1129 EDT Body Mass Index 18.58 11/04/2017 1129 EDT documented in this encounter Functional Status * Because of [...] 01/07/2016 13:00 EDT documented in this encounter Progress Notes * Ryan Ruiz MD - 11/04/2017 1130 EDT Subjective: Patient ID: Zaira Collins is an 62 y.o. female. Chief Complaint Patient presents with ??? New Patient Visit anal fistula. HPI She is a patient with Crohn's disease who underwent completion proctectomy and ileostomy in 2001. The anus was left in place. 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 In 2013 I evaluated her for intermittent drainage from the anus. I brought her to the operating room for exam under anesthesia. I explored the anus and there was no fistulization or any chronic cavity. She continues to have drainage and feels that over the years it has increased in frequency and volume. Sometimes she even gets the urge to move her bowels and then passes some mucus and some blood. Typically every day she will see some blood on the pad that she wears in her underpants. She denies any perianal pain however. Patient Active Problem List Diagnosis ??? Chronic kidney disease, stage III (moderate) ??? Tachycardia ??? Hematuria ??? Diarrhea with dehydration ??? Nephrocalcinosis ??? Renal tubular acidosis ??? Nephrolithiasis ??? Crohn's disease ([facility]) ??? Fibromyalgia Past Medical History: Diagnosis Date ??? Anemia ??? Anomaly, cardiac tachycardia ??? Chronic kidney disease, stage III (moderate) ??? Crohn's disease ([facility]) s/p colectomy and small bowel resections with ileostomy ??? Depression ??? Diarrhea with dehydration leading to recurrent episodes of ERNESTINA ??? Fibromyalgia ??? Heart murmur ??? Hematuria cystoscopy, renal CT, cytology unremarkable ??? Mental disorder ??? 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 Nephrolithiasis unknown type, required procedrues for removal; no recent stones ??? Renal tubular acidosis dx at [facility], after bowel surgery ??? Tachycardia rx with [...] Colon Cancer Neg Hx Social Social History Substance Use Topics ??? Smoking status: Current Every Day Smoker Packs/day: 1.00 ??? Smokeless tobacco: Never Used ??? Alcohol use No Current Outpatient Prescriptions on File Prior to Visit Medication Sig Dispense Refill ??? acetaminophen (TYLENOL) 325 mg tablet Take 3 Tabs by mouth every 6 hours as needed for Pain. ??? BIOTIN ORAL Take 5,000 mg by mouth daily. ??? Cyanocobalamin 1,000 mcg TbER Take by [...] magnesium oxide (MAG-OX) 400 mg tablet Take 500 mg by mouth daily. ??? metoprolol (LOPRESSOR) 25 mg tablet Take 25 mg by mouth daily. ??? ONDANSETRON HCL ORAL Take 4 mg by mouth 2 times daily. ??? oxyCODONE-acetaminophen (PERCOCET) 5-325 mg per tablet Take 1 Tab by mouth 3 times daily as needed for Pain. ??? potassium chloride (MICRO-K) 10 mEq capsule Take 10 mEq by mouth 4 times daily. ??? sodium bicarbonate 650 mg tablet Take 3 Tabs by mouth 4 times daily. No current facility-administered medications on file prior to visit. No Known Allergies Review of Systems Constitutional: Negative for chills, fever and weight loss. Respiratory: Negative for shortness of breath. Cardiovascular: Negative for chest pain and palpitations. Gastrointestinal: Positive for abdominal pain and nausea. Negative for blood in stool. Endo/Heme/Allergies: Does not bruise/bleed easily. - See HPI Objective: BP 112/76 Pulse 90 Ht (!) 149.9 cm (59) Wt (!) 41.7 kg (92 lb) BMI 18.58 kg/m2 Physical Exam Constitutional: She appears well-developed and well-nourished. Eyes: Pupils are equal, round, and reactive to light. No scleral icterus. Pulmonary/Chest: Effort normal. No respiratory distress. Genitourinary: Genitourinary Comments: The anus is very conical in shape and at the apex I can see a little bit ofmucus but no blood. The surrounding tissues are soft and supple without induration or inflammation. Skin: Skin is warm and dry. No rash noted. No pallor. Psychiatric: Her behavior is normal. Judgment normal. Assessment: She may have a chronic cavity and certainly had an abscess in 2008. Plan: I would recommend a pelvic MRI with fistula protocol to be done here at the [facility]. This will allow us to evaluate for any residual cavity or possible fistula. We will try and arrange for that to be done in the morning and I could see her in the afternoon to after school counselor her on the findings and possible treatment options. One option may be to excise the anus. I was careful to begin laying the ground work that that would be unlikely to change her other symptoms of chronic abdominal pain and nausea. (K50.919) Crohn's disease with complication, unspecified gastrointestinal tract location (HCC-CMS) (primary encounter diagnosis) Ryan Ruiz MD No orders of the defined types were placed in this encounter. documented in this encounter Plan of Treatment Upcoming Encounters Date Type Department Care Team (Late st Contact Info) Description 04/07/2024 9:00 EST Office Visit [facility] Endocrinology - [address] [address] Vincenzo Rawls MD 62 [facility] [address] [place] [phone] 08/22/2024 15:30 EDT Telemedicine [facility] Nephrology - [facility] 1 [place], [place] [address] Jose L Whitley MD 1 [facility], [address] [place] [phone] documented as of this encounter Visit Diagnoses Diagnosis Crohn's disease with complication, unspecified gastrointestinal tract location (HCC-CMS)- Primary documented in this encounter Care Teams Line Installer Repairer Relationship Specialty Start Date End Date Mary Ann Goodman MD PCP - General 08/02/08 03/21/18 documented as of this encounter
--- OUTSIDE RECORDS SUMMARY | 2024-03-17 12:20 | XMS_ITS | Encounter Summary ---
Author Organization [facility] Address [address] [place] [address] Care Team Providers Care Rn Lactation Consultant Name Role Phone Mary Ann Goodman MD Primary Care Provider Unavailable Encounter Details Date Type Department Care Team (Latest Contact Info) Description 07/01/2017 16:13 EDT - 07/01/2017 23:59 EDT Hospital Encounter [address] [address] Zuleika Torres, AUTOMOTIVE WELDER 792 [facility] [address] [place] [address] Discharge Disposition: Home or Self Care Social [...] 01/07/2016 13:00 EDT documented in this encounter Discharge Diagnoses Diagnosis D47.2 Monoclonal gammopathy-D47.2[ICD-10-CM] documented in this encounter Medications at Time of Discharge DULoxetine (CYMBALTA) 30 mg delayed release capsule [...] Take 60 mg by mouth daily. 9 Hydromorphone (DILAUDID) 1 mg/mL liquid Take 1 mg by mouth every 4 hours. 9 loperamide (IMODIUM A-D) 2 mg tablet Take 2 mg by mouth 2 times daily as needed for Diarrhea. 9 magnesium oxide (MAG-OX) 400 mg tablet Take 800 mg by mouth daily. 09/01/2013 2 metoprolol (LOPRESSOR) 25 mg tablet Take 12.5 mg by mouth daily. 2 oxyCODONE-acetami nophen (PERCOCET) 5-325 mg per tablet Take 1 Tab by mouth 3 times daily as needed for Pain. 9 documented as of this encounter Discharge Disposition Disposition Code Departure Means Destination Home or Self Care documented in this encounter Plan of Treatment Upcoming Encounters Date Type Department Care Team (Late st Contact Info) Description 04/07/2024 9:00 EST Office Visit [facility] Endocrinology - [facility] [address] [place], [place] [phone] Vincenzo Rawls MD 62 [facility] [address] [place] [phone] 08/22/2024 15:30 EDT Telemedicine [facility] Nephrology - [facility] 1 [place], [place] [phone] Jose L Whitley MD 1 [facility] Level [address] [place] [phone] documented as of this encounter Visit Diagnoses Not on filedocumented in this encounter Care Teams Rn Lactation Consultant Relationship Specialty Start Date End Date Mary Ann Goodman MD PCP - General 08/02/08 03/21/18 documented as of this encounter
--- OUTSIDE RECORDS SUMMARY | 2024-03-17 12:20 | XMS_ITS | Encounter Summary ---
Author Organization [facility] Address [address] [place] [address] Care Team Providers Care Rfid Engineer Name Role Phone Mary Ann Goodman MD Primary Care Provider Unavailable Reason for Visit * Reason Comments Back Pain Leg Pain bilateral leg pain Encounter Details Date Type Department Care Team (Late st Contact Info) Description 09/26/2015 12:45 EDT Office Visit [facility] Interventional Pain [address] [facility] [place] [address] Antonia Marquis MD [address] [facility] [address] [place] [address] Will Hamilton MD [address] [place] [address] [place] [address] Disorder of SI (sacroiliac) joint (Primary Dx); Fibromyalgia Social History Tobacco Use Types Packs/Day Years [...] Sign Reading Time Taken Comments Blood Pressure 96/69 09/26/2015 1246 EDT Pulse 91 09/26/2015 1246 EDT Temperature 36 ??C (96.8 ??F) 09/26/2015 1246 EDT Respiratory Rate 16 09/26/2015 1246 EDT Oxygen Saturation - - Inhaled Oxygen Concentration - - Weight 41.7 kg (92 lb) 09/26/2015 1246 EDT Height 149.9 cm (4' 11) 09/26/2015 1246 EDT Body Mass Index 18.58 09/26/2015 1246 EDT documented in this encounter Functional Status * Because of a physical, mental, or emotional condition, does this person have difficulty doing errands alone such as visiting a doctor's office or shopping? Answer Date of Assessment Author No 09/26/2015 12:47 EDT documented as of this encounter Mental Status * Because of a physical, mental, or emotional condition, does this person have serious difficulty concentrating, remembering, or making decisions? Answer Entry Date Author No 09/26/2015 12:47 EDT documented in this encounter Progress Notes * Will Hamilton MD - 09/26/2015 1317 EDT [facility] OP PAIN CONSULT Patient Name: Zaira Collins : 1955 Date of Service: 09/26/2015 Chief Complaint: Chief Complaint Patient presents with ??? Back Pain ??? Leg Pain bilateral leg pain Physician Requesting Consultation:Mary Ann Goodman History of Present Illness: Ms. Collins presents at the request of Mary Ann Goodman for evaluation and treatment of her chronic low back pain.Patient has been seen in our clinic in the past for similarcomplaints and she returns today with continued chronic pain complaints. Pt has a hx of fibromyalgia and crohn's diease and has chronic abdominal pain. He LBP is a bigger problem and is the focus of this consultation. This pain is primarily localized to the bilateral low back area and radiates to the bilateral fingers and knees over the posterior aspect. This pain has been present for >10 years and is described as dull and throbbing in character. The average pain intensity is 7 / 10 and is aggravated by physical activities. Resting/lying down and opiates alleviates the pain. She has reported trials of nortriptyline, gabapentin, and opioids with history of aberrant behavior. Current regimen includes flexeril, valium, cymbalta and percocet. She is not doing PT currently. The patient???s chronic pain has negatively impacted level of function, resulting in more difficulty walking, more difficulty performing normal work and less enjoyment of life. Pt has not gotten any injections in the past. She did refuse an SI joint injection recommended by this clinic in 2011 as her mother had warned her against getting injections. Allergies: No Known Allergies Current Medications: Current Outpatient Prescriptions Medication Sig Dispense Refill ??? acetaminophen (TYLENOL) [...] Take 60 mg by mouth daily. ??? loperamide (IMODIUM A-D) 2 mg tablet [...] 4 times daily. No current facility-administered medications for this visit. Past Medical HX: Past Medical History Diagnosis Date ??? Depression ??? Fibromyalgia ??? Crohn's disease s/p colectomy and small bowel resections with ileostomy ??? Nephrolithiasis unknown type, required procedrues for removal; no recent stones ??? Renal tubular acidosis dx at [facility], after bowel surgery ??? 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 Diarrhea with dehydration leading to recurrent episodes of ERNESTINA ??? Hematuria cystoscopy, renal CT, cytology unremarkable ??? Tachycardia rx with b-charu, asymptomatic ??? Chronic kidney disease, stage III (moderate) ??? Anomaly, cardiac tachycardia ??? Mental disorder ??? Heart murmur Past Surgical HX: Past Surgical History Procedure Laterality Date ??? Hysterectomy ??? Rectal surgery ??? Total colectomy ??? Small intestine surgery ??? Colon surgery Past Social HX: History Social History ??? Marital Status: Spouse Name: N/A ??? Number of Children: N/A ??? Years of Education: N/A Occupational History ??? Not on file. Social History Main Topics ??? Smoking status: Current Every Day Smoker -- 1.00 packs/day ??? Smokeless tobacco: Never Used ??? Alcohol Use: No ??? Drug Use: 2.00 per week Special: Marijuana ??? Sexual Activity: Not on file Other Topics Concern ??? Not on file Social History Narrative Family HX: Family History Problem Relation Age of Onset ??? Stomach Cancer Neg Hx ??? Rectal Cancer Neg Hx ??? Pancreatic Cancer Neg Hx ??? Esophageal Cancer Neg Hx ??? Colon Cancer Neg Hx Review of Systems: System Negative Positive Comments Constitutional x anxious Eyes x ENT x Cardiovascular x Pulmonary x Gastrointestinal x Chronic abdominal pain Genitourinary x Muscoloskeletal x As above Skin x Neurological x Psychiatric x Endocrine x Hematologic/Lymph x Allergic/Immunologic x Physical Exam: Vitals: BP 96/69 mmHg Pulse 91 Temp(Src) 36 ??C (96.8 ??F) (Tympanic) Resp 16 Ht 149.9 cm (59) Wt 41.731 kg (92 lb) BMI 18.57 kg/m2 General:awake, alert, cooperative, no apparent distress Neuro: Cranial nerves II-XII grossly intact and symmetric HEENT: NCAT/PERRL Skin: clear, warm, dry and intact and no rashes, bruises or petechiae noted Musculoskeletal: Gait: Normal, Lumbar Spine: Mild paraspinal tenderness over SIJ bilaterally to moderate palpation Upper extremities: No clubbing, cyanosis, or edema. Lower extremities: No cyanosis, or edema, SLT negative bilateral. BELLA is positive bilateral Strength Exam:5/5 in lower extremities bilaterally Sensory Exam: no defecit to light touch. Assessment: 1. Disorder of SI (sacroiliac) joint 2. Fibromyalgia Plan: Pt is a 59 y.o. Female, hx fibromyalgia, crohn's disease who presents with bilateral low back pain consistent with sacro-illiac joint inflammation. We had a lengthy discussion regarding options. From an interventional approach to pain, I would again suggest a bilateral sacro-illiac joint injection of steroid. She has anxiety regarding an injection as her mother had a bad experience with them and warned her against it. We reviewed the risks and benefits and pt is agreeable. From a medication perspective, I would not make any changes as she is has chronic abdominal pain and NSAIDs are contraindicated. We agree with her current medication regimen with a small concern regarding exterminator helper opioid use for chronic pain with a patient who has a history of aberrant behavior. In addition to above therapies, the patient may benefit from a different approach to managing chronic pain such as physical therapy. The patient asked appropriate questions and all questions were answered. I spent a total of 40 minutes in face to face time with the patient of which greater than 25 minutes was dedicated to education, counseling the patient on the risks and treatment options and coordination of care. Attending attestation: I saw and examined the patient with the resident/fellow. I have reviewed andedited the documentation above and agree with the findings and plan of care in the resident's/fellow's note. Antonia Marquis MD documented in this encounter Plan of Treatment Upcoming Encounters Date Type Department Care Team (Late st Contact Info) Description 04/07/2024 9:00 EST Office Visit [facility] Endocrinology - [address] [id number] Vincenzo Rawls MD [address] [place] [address] [address] [place] [address] 08/22/2024 15:30 EDT Telemedicine [facility] Nephrology - [address] [place] [address] Jose L Whitley MD [address] [facility] [address] [place] [phone] documented as of this encounter Visit Diagnoses Diagnosis Disorder of SI (sacroiliac) joint- Primary Disorders of sacrum Fibromyalgia Mylagia and myositis, unspecified documented in this encounter Historical Medications * This list may reflect changes made after this encounter. ONDANSETRON HCL ORAL Take 4 mg by mouth 3 times daily. loperamide (IMODIUM A-D) 2 mg tablet Take 2 mg by mouth 2 times daily as needed for Diarrhea. 10/26/2018 estradiol (VIVELLE) 0.025 mg/[address] 1 Patch onto the skin once a week. 10/26/2018 added in this encounter Care Teams Rfid Engineer Relationship Specialty Start Date End Date Mary Ann Goodman MD PCP - General 08/02/08 03/21/18 documented as of this encounter
--- OUTSIDE RECORDS SUMMARY | 2024-03-17 12:20 | XMS_ITS | Encounter Summary ---
Author Organization [facility] Address [address] [place] [address] Care Team Providers Care Risk Assessment Consultant Name Role Phone Mary Ann Goodman MD Primary Care Provider Unavailable Encounter Details Date Type Department Care Team (Late st Contact Info) Description 11/25/2017 9:26 EDT - 11/25/2017 23:59 EDT Hospital Encounter [address] [address] Ryan Ruiz MD [address] [place] [address], [address] [place] [phone] Discharge Disposition: Auto Discharge Social History Tobacco [...] documented in this encounter Discharge Diagnoses Diagnosis K50.919 Crohn's disease, unspecified, with unspecified complications-K50.919[ICD-10-CM] documented in this encounter Medications at Time [...] Disposition Code Departure Means Destination Auto Discharge Home documented in this encounter Plan of Treatment Upcoming Encounters Date Type Department Care Team (Late st Contact Info) Description 04/07/2024 9:00 EST Office Visit [facility] Endocrinology - [facility] [address] [place] [address] Vincenzo Rawls MD [address] [facility] [address] [place] [address] 08/22/2024 15:30 EDT Telemedicine [facility] Nephrology - [facility] [address] [place], [place] [phone] Jose L Whitley MD [facility] [address] [place] [phone] documented as of this encounter Visit Diagnoses Not on filedocumented in this encounter Care Teams Risk Assessment Consultant Relationship Specialty Start Date End Date Mary Ann Goodman MD PCP - General 08/02/08 03/21/18 documented as of this encounter
--- OUTSIDE RECORDS SUMMARY | 2024-03-17 12:20 | XMS_ITS | Encounter Summary ---
Author Organization [facility] Address [address] [place] [address] Care Team Providers Care Butter Printer Name Role Phone Mary Ann Goodman MD Primary Care Provider Unavailable Reason for Visit * Reason Onset Date Comments Other 11/06/2017 MRI questions Encounter Details Date Type Department Care Team (Late st Contact Info) Description 11/06/2017 Telephone [facility] General Surgery - [facility] [address] [place] [address] Li Carvajal RN [address] [place] [address] Other (MRI questions) Social History Tobacco Use Types Packs/Day Years [...] 01/07/2016 13:00 EDT documented in this encounter Miscellaneous Notes * Telephone Encounter - Li Carvajal RN - 11/06/2017 5963 EDT I have called the patient to ask about metal in her body/electonic devices and if she has claustrophobia. I am placing the order for her MRI fistula protocol to be done but can not complete the orderuntil I have the answers to these questions. Full MRI safety questionnaire has been filled out. Patient aware as soon as the MRI pelvis fistula protocol has been scheduled Maude will call with the appointment. documented in this encounter Plan of Treatment Upcoming Encounters Date Type Department Care Team (Late st Contact Info) Description 04/07/2024 9:00 EST Office Visit [facility] Endocrinology - [address] [address] Vincenzo Rawls MD [address] [place] [address] [address] [place] [phone] 08/22/2024 15:30 EDT Telemedicine [facility] Nephrology - [address] [phone] Jose L Whitley MD [address] [facility], [address] [place] [phone] documented as of this encounter Visit Diagnoses Not on filedocumented in this encounter Care Teams Butter Printer Relationship Specialty Start Date End Date Mary Ann Goodman MD PCP - General 08/02/08 03/21/18 documented as of this encounter
--- OUTSIDE RECORDS SUMMARY | 2024-03-17 12:20 | XMS_ITS | Encounter Summary ---
Author Organization [facility] Address [address] [place] [address] Care Team Providers Care Freight Car Inspector Name Role Phone Mary Ann Goodman MD Primary Care Provider Unavailable Encounter Details Date Type Department Care Team (Late st Contact Info) Description 01/25/2014 9:16 EST - 01/25/2014 14:28 EST Hospital Encounter [facility] Perioperative Services - [address] [phone] Ryan Ruiz MD [address] [facility] [address] [place] [address] Discharge Disposition: Home or Self [...] Sign Reading Time Taken Comments Blood Pressure 123/75 01/25/2014 1400 EST Pulse - - Temperature 36 ??C (96.8 ??F) 01/25/2014 1400 EST Respiratory Rate 15 01/25/2014 1400 EST Oxygen Saturation 100% 01/25/2014 1415 EST Inhaled Oxygen Concentration - - Weight - - Height - - Body Mass Index - - documented in this encounter Discharge Instructions * Discharge Instructions* Susana Adams RN - 01/25/2014 13:32 EST For the next 2 days take tylenol 1000 mg every 6 hours as needed for pain. Wear a pad as needed fordischarge. You have no incisions and have no activity restrictions. Follow- up with Dr. Ruiz in clinic as scheduled. Call [phone] if you have questions regarding your appointment. documented in this encounter Medications at Time of Discharge potassium chloride (MICRO-K) 10 mEq capsule Take 2 Capsules by mouth daily. sodium bicarbonate 650 mg tablet Take 4 Tablets by mouth 3 times daily. 09/01/2013 acetaminophen (TYLENOL) 325 mg tablet Take 3 Tabs by mouth every 6 hours as needed for Pain. 01/25/2014 9 BIOTIN ORAL Take 5,000 mg by mouth daily. 9 Black Cohosh 540 mg Cap Take by mouth. 6 Cyanocobalamin 1,000 mcg TbER Take by mouth. 9 cyclobenzaprine (FLEXERIL) 10 mg tablet Take 5 mg by mouth 3 times daily. 2 DIAZepam (VALIUM) 5 mg tablet Take 5 mg by mouth 2 times daily. 9 Estradiol (ESTRASORB) 2.5 mg/g (1.74 g) [place] onto the skin every 7 days . 6 magnesium oxide (MAG-OX) 400 mg tablet Take 800 mg by mouth daily. 09/01/2013 2 metoprolol (LOPRESSOR) 25 mg tablet Take 12.5 mg by mouth daily. 2 prochlorperazine (COMPAZINE) 10 mg tablet Take 10 mg by mouth 3 times daily. 6 documented as of this encounter Ordered Prescriptions Prescription Sig Dispense Quantity Refills Last Filled Start Date End Date acetaminophen (TYLENOL) 325 mg tablet Take 3 Tabs by mouth every 6 hours as needed for Pain. 01/25/2014 10/27/2018 documented in this encounter Discharge Disposition Disposition Code Departure Means Destination Home or Self Care documented in this encounter Progress Notes * PACKAGER AND STRAPPER, SCAN 2 - 01/30/2014 1551 EST documented in this encounter H&P Notes * Ryan Ruiz MD - 01/25/2014 1225 EST The preoperative history and physical which was performed within 30 days of this procedure has been reviewed and the clinically appropriate elements of the physical examination have been repeated. There are no changes to the documented history and physical or if so such changes are documented below Ryan Ruiz MD 01/25/2014 12:25 Source Note - Ryan Ruiz MD - 01/04/2014 14:50 EDT Subjective: Patient ID: Zaira Collins is an 58 y.o. female. Chief Complaint Patient presents with ??? New Patient Visit new patient visit for nonhealing perianal would HPI Mrs. Collins is referred to me by Dr. Horton for a nonhealing wound in the setting of prior Crohn's disease. She has a long history of inflammatory bowel disease. Ultimately she underwent completionproctectomy with permanent end ileostomy in 2001. There also notes stating that in 2008 she had incision and drainage in the operating room of a chronic supralevator abscess. As a result she has beenleft with a perineal wound that is not healed. She wears a pad every day and changes that had daily. She sees a nickel sized spot of bloody foul- smelling drainage on the pad. It does not appear to bethe same type of drainage that she has from her ileostomy. She does think there may be some vaginal drainage. She recently underwent CT of the pelvis in October. I have independently reviewed the images. There is no obvious fistula or chronic cavity in the pelvis. Full 10 systems review performed as documented in this note and on intake sheet. Patient Active Problem List Diagnosis ??? Chronic kidney disease, stage III (moderate) ??? Tachycardia ??? Hematuria ??? Diarrhea with dehydration ??? Nephrocalcinosis ??? Renal tubular acidosis ??? Nephrolithiasis ??? Crohn's disease ??? Fibromyalgia Past Medical History Diagnosis Date ??? Depression ??? Fibromyalgia ??? Crohn's disease s/p colectomy and small bowel resections with ileostomy ??? Nephrolithiasis unknown type, required procedrues for removal; no recent stones ??? [place] [facility] [place] ??? 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 Diarrhea with dehydration leading to recurrent episodes of ERNESTINA ??? Hematuria cystoscopy, renal CT, cytology unremarkable ??? Tachycardia rx with b-charu, asymptomatic ??? Chronic kidney disease, stage III (moderate) Past Surgical History Procedure Laterality Date ??? Hysterectomy ??? Rectal surgery ??? Total colectomy ??? Small intestine surgery History reviewed. No pertinent family history. Social History Substance Use Topics ??? Smoking status: Current Every Day Smoker -- 1.00 packs/day ??? Smokeless tobacco: Never Used ??? Alcohol Use: No Current Outpatient Prescriptions on File Prior to Visit Medication Sig Dispense Refill ??? BIOTIN ORAL Take by mouth. ??? Black Cohosh 540 mg Cap Take by mouth. ??? Cyanocobalamin 1,000 mcg TbER Take by mouth. ??? cyclobenzaprine (FLEXERIL) 10 mg tablet Take 10 mg by mouth 3 times daily as needed. ??? DIAZepam (VALIUM) 5 mg tablet Take 5 mg by mouth 2 times daily. ??? Estradiol (ESTRASORB) 2.5 mg/g (1.74 g) [place] onto the skin 2 times daily. ??? magnesium oxide (MAG-OX) 400 mg tablet Take 1 Tab by mouth daily. ??? metoprolol (LOPRESSOR) 25 mg tablet Take 25 mg by mouth daily. ??? potassium chloride (MICRO-K) 10 mEq capsule Take 20 mEq by mouth 2 times daily . ??? prochlorperazine (COMPAZINE) 10 mg tablet Take 10 mg by mouth 3 times daily. ??? sodium bicarbonate 650 mg tablet Take 3 Tabs by mouth 4 times daily. No current facility-administered medications on file prior to visit. No Known Allergies Review of Systems Constitutional: Negative for fever, chills and weight loss. Respiratory: Negative for shortness of breath. Cardiovascular: Negative for chest pain and palpitations. Gastrointestinal: Negative for abdominal pain and blood in stool. Musculoskeletal: Has chronic, full body pain from fibromyalgia Endo/Heme/Allergies: Does not bruise/bleed easily. All other systems reviewed and are negative. - See HPI Objective: BP 100/68 Pulse 72 Ht 152.4 cm (60) Wt 46.267 kg (102 lb) BMI 19.92 kg/m2 Physical Exam Constitutional: She appears well-developed and well-nourished. No distress. Eyes: No scleral icterus. Cardiovascular: Normal rate. Pulmonary/Chest: Effort normal. No respiratory distress. Genitourinary: Anus: Skin: intact, no scars Eversion: there is a 1.5cm opening at the anterior aspect of the perineal wound that is well epithelialized and tapers rapidly Digital exam: deferred Skin: Skin is warm and dry. Assessment: She has a symptomatic unhealed perineal wound. On close questioning the symptoms are relatively minor although they are bothersome to her. There is this question of a fistula to the vagina. Plan: I need to do an anal rectal examination under anesthesia to fully assess the size of this cavity and its depth as well as whether or not it fistula as his to the vagina. This will allow me to carefully counseled her about her options and realistic expectations. KRISSA with local MAC Zaira was seen today for new patient visit. Diagnoses and associated orders for this visit: Crohn's disease Ryan Ruiz MD documented in this encounter Procedure Notes * Neli Mast MD - 01/25/2014 1312 EST Brief Op Note Pre-op Diagnosis: non-healing perineal wound Post-op Diagnosis: same Procedure: exam under anesthesia Surgeon: Dr. Ryan Ruiz Warrant Server: Neli Mast MD PGY-1, Trinidad Goins MS3 Anesthesia: IV sedation and pudendal nerve block with local Findings: non-healing perineal wound ~1.5 cm, no evidence of fistula with probing, no evidence of communicating tract on vaginal exam, no evidence of fistula with peroxide testing Fluids: IVF -300ccBL - none Retained Material: none Specimen: none Complications: none Condition: good Dispo: PACU to home Neli Mast MD- PGY-1 Pg. [id number] 01/25/2014 documented in this encounter Nursing Notes * PACKAGER AND STRAPPER, SCAN 2 - 01/30/2014 1551 EST documented in this encounter OR Notes * OR PreOp - PACKAGER AND STRAPPER, SCAN 2 - 02/01/2014 1541 EST * OR PreOp - PACKAGER AND STRAPPER, SCAN 2 - 01/30/2014 1551 EST * Anesthesia Preprocedure Evaluation - PACKAGER AND STRAPPER, SCAN 2 - 01/30/2014 1551 EST * OR Surgeon - Ryan Ruiz MD - 01/25/2014 1525 EST OPERATIVE REPORT SERVICE DATE: 01/25/2014 PREOPERATIVE DIAGNOSIS: Non-healed perineal wound with a possible fistula. POSTOPERATIVE DIAGNOSIS: Non-healed perineal wound without evidence of fistula. PROCEDURE: Anorectal examination under anesthesia. SURGEON: Ryan Ruiz MD SEMICONDUCTOR LAB TECHNICIAN: Neli Mast MD and rTinidad Goins MS3 ANESTHESIA: Local MAC. INDICATIONS: Ms Collins is a 58-year-old female who had a long history of Crohn's disease. She had a completion proctectomy and permanent end ileostomy 2001. In 2008, she was taken to the operating room by my former partner with chronic super-levator abscess and this was drained. Since then, she has been managed by Dr Horton and he referred her to me for a complaint of drainage from the perinealwound. In the office, I could see that she had a small conical shaped epithelialized perineal wound, but I could not fully assess whether there was a fistula or a cavity at the top of the tract; therefore, I recommended exam under anesthesia. The risks and benefits, possible outcomes, complications and alternatives to the procedure were explained to the patient and written informed consent was obtained. FINDINGS: 1. No evidence of wound to the vaginal fistula. 2. No real chronic cavity at the top of the healed perineal wound. NARRATIVE: The patient was brought to the operating room and placed in supine position on the OR table. SCDs were applied. After completion of the AVM safety checklist she was placed in lithotomy position with careful padding of the extremities and administered IV sedation by the anesthesiologist. She was prepped and draped in the usual fashion and a final pause was held in which correct patient and procedure to be performed was confirmed by those present. A long-acting local anesthetic was used to perform a pudendal nerve block bilaterally. Examination of the perianal skin revealed a conical shaped healed epithelialized perineal wound with a depth of approximately 2 cm. At the apex it was a little pink but I did not see any granulation tissue and I cannot appreciate any abscess or any cavity. I gently probed that area with a fistula probe and it did not track anywhere. I inspected the back of the vaginal wall with the assistance of a retractor and could not find any evidence of any fistula opening. With a retractor in the vagina I then injected hydrogen peroxide up into the perineal wound and there was no leaking into the vagina to suggest afistula. The patient tolerated the procedure well. I was present and scrubbed for the entire case. Unless otherwise noted, there were no complications, no blood loss, no cultures obtained, no specimens removed, and no drains retained. Ryan Ruiz MD 01 14 PM / Ryan Ruiz MD kn Confirmation: [id number] Dictation ID: [id number] cc:Mary Ann Mast MD * Anesthesia Preprocedure Evaluation - PACKAGER AND STRAPPER, SCAN 2 - 01/25/2014 1340 EST * Anesthesia Preprocedure Evaluation - PACKAGER AND STRAPPER, SCAN 2 - 01/25/2014 1340 EST * Anesthesia Procedure Notes - PACKAGER AND STRAPPER, SCAN 2 - 01/25/2014 1340 EST documented in this encounter Miscellaneous Notes * Anesthesia Post-Eval - Nat Cummins - 01/25/2014 1442 EST Post Anesthesia Evaluation Note Date of Service: 01/25/2014 Zaira Collins, a 58 y.o. year old female has received MAC today. She has been evaluated, assessed and discharged from anesthesia care with stable cardiorespiratory function and alert mental status. The last set of recorded vital signs and pain rating were reviewed: Temp: 36 ??C (96.8 ??F) (01/25/14 1400), Heart Rate: 78 BPM (01/25/14 1400), BP: 123/75 mmHg (01/25/14 1400), Resp: 15 (01/25/14 1400), SpO2: 100 % (01/25/14 1415),Numeric Pain Level (Scale 1-10): 6 Zaira Collins participated in this evaluation unless otherwise noted. Her pain, nausea and vomiting have been managed and her body temperature and fluid balance have been restored. Additional monitoring and assessment needs have been addressed. If present, any postoperative events are documentedbelow. NAT CUMMINS MD 01/25/2014 14:43 * Plan of Care - Susana Adams RN - 01/25/2014 1435 EST Discharge instructions reviewed with pt and pt's mother in law. Both verbalized understanding. Pt discharged to home via W/C with her mother in law. Pain tolerable. documented in this encounter Plan of Treatment Upcoming Encounters Date Type Department Care Team (Late st Contact Info) Description 04/07/2024 9:00 EST Office Visit [facility] Endocrinology - [facility] [address] [place] [address] Vincenzo Rawls MD [address] [facility] [address] [place] [address] 08/22/2024 15:30 EDT Telemedicine [facility] Nephrology - [address] [phone] Jose L Whitley MD [address] [place] [address] Rehab, Level [address] [place] [phone] documented as of this encounter Procedures Procedure Name Priority Date/Time Associated Diagnosis Comments ECG REPORT - SCANNED 01/30/2014 15:51 EST documented in this encounter Results * ECG REPORT - SCANNED (01/30/2014 15:51 EST) 01/30/2014 15:5 1 EST us Scan 2 Health And Physical Education Professor PROCEDURE/MINOR SURGICAL OR DERABLES Final Result documented in this encounter Visit Diagnoses Not on filedocumented in this encounter Administered Medications Inactive Administered Medications - up to 3 most recent administrations Medication Order MAR Action Action Date Dose Rate Site acetaminophen (TYLENOL) tablet 325 mg 325 mg, oral, PRN, 2 doses, Starting on Thu01/25/14 at 1310, Until Thu01/25/14 at 1636, Pain, Routine, Recovery (only) Given 01/25/2014 13:38 EST 325 mg lactated ringers (LR) infusion at 25 mL/hr, intravenous, CONTINUOUS, Starting on Thu01/25/14 at 1100, Until Thu01/25/14 at 1308, Routine, Pre Op Day of Surgery New Bag 01/25/2014 10:39 EST 25 mL/hr lactated ringers (LR) infusion at 75 mL/hr, intravenous, CONTINUOUS, Starting on Thu01/25/14 at 1330, Until Thu01/25/14 at 1636, Routine, Recovery (only) Rate Documented 01/25/2014 13:17 EST 75 mL/hr oxyCODONE (ROXICODONE) immediate release tablet 5 mg 5 mg, oral, PRN, 2 doses, Starting on Thu01/25/14 at 1310, Until Thu01/25/14 at 1636, Pain, Routine, Recovery (only) Given 01/25/2014 13:38 EST 5 mg documented in this encounter Active and Recently Administered Medications Times are shown in EST. Continuous Medication Order 01/23/2014 01/24/2014 01/25/2014 lactated ringers (LR) infusion (CANCELED) at 25 mL/hr, intravenous, CONTINUOUS, Starting on Thu01/25/14 at 1100, Until Thu01/25/14 at 1308, Routine, Pre Op Day of Surgery 1039 (New Bag - Prov ider: Ashley Pugh RN)1317 (Completed - Provider: Susana Adams RN) lactated ringers (LR) infusion (CANCELED) at 75 mL/hr, intravenous, CONTINUOUS, Starting on Thu01/25/14 at 1330, Until Thu01/25/14 at 1636, Routine, Recovery (only) 1317 (Rate Documente d - Provider: Susana Adams RN) PRN Medication Order 01/23/2014 01/24/2014 01/25/2014 acetaminophen (TYLENOL) tablet 325 mg(Linked Group 1) 325 mg, oral, PRN, 2 doses, Starting on Thu01/25/14 at 1310, Until Thu01/25/14 at 1636, Pain, Routine, Recovery (only) 1338 (Given - Provid er: Susana Adams RN) oxyCODONE (ROXICODONE) immediate release tablet 5 mg (CANCELED) 5 mg, oral, PRN, 2 doses, Starting on Thu01/25/14 at 1310, Until Thu01/25/14 at 1636, Pain, Routine, Recovery (only) 1338 (Given - Provid er: Susana Adams RN) Linked Groups Order Group 1: acetaminophen (TYLENOL) tablet 325 mgJump to med 325 mg, oral, PRN, 2 doses, Starting on Thu01/25/14 at 1310, Until Thu01/25/14 at 1636, Pain, Routine, Recovery (only) Or acetaminophen (TYLENOL) solution unit dose cup 325 mg (CANCELED) 325 mg, oral, PRN, 2 doses, Starting on Thu01/25/14 at 1310, Until Thu01/25/14 at 1636, Pain, Routine, Recovery (only) documented in this encounter Orders Medications Ordered That Gerald ht Not Have Been Administered Count Last Ordered Date First Ordered Date acetaminophen (TYLENOL) solu tion unit dose cup 325 mg 1 01/25/2014 atropine 0.1 mg/mL syringe 0.4 mg 1 014 diphenhydrAMINE (BENADRYL) i njection 6.25 mg 1 01/25/2014 fentaNYL citrate (PF) 50 mcg /mL injection 25-100 mcg 1 01/25/2014 nalOXone (NARCAN) injection 0.2 mg 1 2013 ondansetron (PF) (ZOFRAN) injection 4 mg 1 01/25/2014 Transfer Count Last Ordered Date First Orde red Date NOTIFY PPS PACU PATIENT DISCHARGE 1 014 Discharge Count Last Ordered Date First Orde red Date DISCHARGE PATIENT 1 01/25/2014 documented in this encounter Care Teams Freight Car Inspector Relationship Specialty Start Date End Date Mary Ann Goodman MD PCP - General 08/02/08 03/21/18 documented as of this encounter
--- OUTSIDE RECORDS SUMMARY | 2024-03-17 12:20 | XMS_ITS | Encounter Summary ---
Author Organization [facility] Address [address] [place] [address] Care Team Providers Care Prototype Technician Name Role Phone Mary Ann Goodman MD Primary Care Provider Unavailable Reason for Visit * Reason Onset Date Comments Other 10/10/2013 Encounter Details Date Type Department Care Team (Late st Contact Info) Description 10/10/2013 Telephone [facility] Gastroenterology - [address] [address] Brent Horton MD [address] [place] [address], [address] [place] [address] Other Social History Tobacco Use [...] on file documented as of this encounter Miscellaneous Notes * Telephone Encounter - Brent Atkins - 10/10/2013 1033 EDT Called and left multiple messages for patient to call back and schedule appointments. documented in this encounter Plan of Treatment Upcoming Encounters Date Type Department Care Team (Late st Contact Info) Description 04/07/2024 9:00 EST Office Visit [facility] Endocrinology - [facility] [address] [place], [place] [phone] Vincenzo Rawls MD [address] [facility] [address] [place] [address] 08/22/2024 15:30 EDT Telemedicine [facility] Nephrology - [facility] [address] [place], [place] [phone] Jose L Whitley MD [address] [place], [place] [id number], [address] [place] [phone] documented as of this encounter Visit Diagnoses Not on filedocumented in this encounter Care Teams Prototype Technician Relationship Specialty Start Date End Date Mary Ann Goodman MD PCP - General 08/02/08 03/21/18 documented as of this encounter
--- OUTSIDE RECORDS SUMMARY | 2024-03-17 12:20 | XMS_ITS | Encounter Summary ---
Author Organization [facility] Address [address] [place] [address] Care Team Providers Care Guest Services Assistant Name Role Phone Unavailable Primary Care Provider Unavailabl e Encounter Details Date Type Department Care Team (Late st Contact Info) Description 06/12/2008 9:[address] [facility] [address] [place] [address] Cheikh Luevano MD [address] [facility], [address] [place] [address] Social History Tobacco Use Types Packs/Day Years [...] 8:12 EDT documented as of this encounter Plan of Treatment Upcoming Encounters Date Type Department Care Team (Late st Contact Info) Description 04/07/2024 9:00 EST Office Visit [facility] Endocrinology - [facility] [address] [place], [place] [phone] Vincenzo Rawls MD [address] [facility] [address] [place] [address] 08/22/2024 15:30 EDT Telemedicine [facility] Nephrology - [facility] [place], [place] [address] [place], [place] [phone] Jose L Whitley MD [address] [place] [address] Rehab, Level [address] [place] [phone] documented as of this encounter Procedures Procedure Name Priority Date/Time Associated Diagnosis Comments CT PELVIS (ILIAC CREST TO SYMPHYSIS PUBIS) WO CONTRAST 10/14/2013 16:25 EDT documented in this encounter Results * CT PELVIS WO CONTRAST (10/14/2013 16:25 EDT) Anatomical Region Laterality Modality Other 10/14/2013 16:2 5 EDT 10/14/2013 17:57 EDT Narrative 10/14/2013 17:[address] PELVIS WO CONTRAST ??10/14/2013 4:25 PM Signs and Symptoms/Comments: ?? 555.9-Regional enteritis of unspecified [id number]; history of total proctocolectomy with non-healing perineal wound; Perineal wound please note lab values patient called and told to oral hydrate ff. Technique: Helically acquired CT images of the pelvis were obtained without the use of intravenous contrast. IV contrast was not administered secondary to the fact that the patient's GFR was only 33, despite oral hydration. Compare CT March 2008. Findings: The patient is status post total proctocolectomy with a left lower quadrant ileostomy. There are no pathologically enlarged lymph nodes in the pelvis. The previously identified fluid in the vagina is no longer present. There are tiny nonobstructive calculi in the right kidney. A small exophytic cyst is present off of the lower pole of the right kidney. No definitive perianal fistula is identified. The appearance of the perianal tissues is similar to that of the previous CT scan. Impression: 1. No evidence of a perianal fistula on noncontrast CT. The appearance of the perianal tissues is similar to that of the previous CT from 2008. 2. Status post total proctocolectomy with left lower quadrant ileostomy. 3. Right nephrolithiasis. 4. Small right renal cyst. Procedure Note 10/14/2013 CT PELVIS WO CONTRAST 10/14/2013 4:25 PM Signs and Symptoms/Comments: 555.9-Regional enteritis of unspecified [id number]; history of total proctocolectomy with non-healing perineal wound; Perineal wound please note lab values patient called and told to oral hydrate ff. Technique: Helically acquired CT images of the pelvis were obtained without the use of intravenous contrast. IV contrast was not administered secondary to the fact that the patient's GFR was only 33, despite oral hydration. Compare CT March 2008. Findings: The patient is status post total proctocolectomy with a left lower quadrant ileostomy. There are no pathologically enlarged lymph nodes in the pelvis. The previously identified fluid in the vagina is no longer present. There are tiny nonobstructive calculi in the right kidney. A small exophytic cyst is present off of the lower pole of the right kidney. No definitive perianal fistula is identified. The appearance of the perianal tissues is similar to that of the previous CT scan. Impression: 1. No evidence of a perianal fistula on noncontrast CT. The appearance of the perianal tissues is similar to that of the previous CT from 2008. 2. Status post total proctocolectomy with left lower quadrant ileostomy. 3. Right nephrolithiasis. 4. Small right renal cyst. us Brent Horton MD IMG CT ORDERABLES Final Re sult documented in this encounter Visit Diagnoses Not on filedocumented in this encounter
--- OUTSIDE RECORDS SUMMARY | 2024-03-17 12:20 | XMS_ITS | Encounter Summary ---
Author Organization [facility] Address [address] [place] [address] Care Team Providers Care Rn Hemo Dialysis Name Role Phone Mary Ann Goodman MD Primary Care Provider Unavailable Reason for Visit * Reason Comments Crohn's Disease new patient visit Encounter Details Date Type Department Care Team (Late st Contact Info) Description 09/28/2013 10:00 EDT Office Visit [facility] Gastroenterology - [address] [address] Brent Horton MD [address] [place] [address], [address] [place] [address] Crohn's disease (CMS-HCC) (HCC-CMS) (Primary Dx) Social History Tobacco Use [...] Sign Reading Time Taken Comments Blood Pressure 114/80 09/28/2013 1001 EDT Pulse 85 09/28/2013 1001 EDT Temperature - - Respiratory Rate - - Oxygen Saturation - - Inhaled Oxygen Concentration - - Weight - - Height 152.4 cm (5') 09/28/2013 1001 EDT Body Mass Index - - documented in this encounter Discharge Diagnoses Diagnosis 555.9 REGIONAL ENTERITIS NOS[ICD-9-CM] documented in this encounter Progress Notes * Brent Horton MD - 09/28/2013 1008 EDT Subjective: Patient ID: Zaira Collins is an 58 y.o. female. Chief Complaint Patient presents with ??? Crohn's Disease new patient visit HPI Comments: Ms. Collins is seen in the GI office at the request of Dr. Nj for consultation for Crohn's disease. She has a very complicated and fragmented history. She had IBD diagnosed as a teenager. Initially felt to be UC, but was ultimately diagnosed with Crohn's disease. She has had several surgeries, all at other places. She had surgery at [facility], as well as [facility] and [place]. Germán wolfe she initially had a colectomy, with an ileorectal anastomosis. Ultimately, she had an ileostomyand had her rectum removed. Her perineal wound failed to heal, and she has had constant drainage. There may be some drainage from her vagina was well. She saw Dr. Truong years ago who failed to finda fistula. She has seen Dr. Espinosa who felt that her perineal wound would be very difficult to heal,and recommended a conservative approach. Her follow-up sounds like it has been difficult and inconsistent. Currently, she has three main issues. She continue to have drainage from her perineal wound.She has high ostomy output and frequent episodes of dehydration. She is being evaluated by Renal for worsening renal function and renal tubular acidosis. She also has mid-epigastric abdominal pain, worse after eating. No fevers. Weight and appetite are ok. No bleeding. Patient Active Problem List Diagnosis ??? Chronic [...] stones ??? 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 Nephrocalcinosis on imaging [...] file prior to visit. No Known Allergies ROS - See HPI Objective: BP 114/80 Pulse 85 Ht 152.4 cm (60) Physical Exam Alert and oriented, chronically ill-appearing Sclera anicteric, mucous membranes moist Heart regular rate and rhythm Lungs clear to auscultation bilaterally Abdomen soft. Well healed midline incision. Some tenderness to mild palpation along superior aspectof her incision. Well healed PEG site in LUQ. Ostomy in LLQ Extremities without rash or edema Rectal: fisula-like tract with some opaque drainage at opening of former rectum. No visible drainage from vagina. Assessment: 1) Crohn's with high ostomy output. Could be active Crohn's, but more likely high output secondary to her multiple surgeries. I asked her to take one tablet of imodium daily in an effort to slow downher motility and decrease her output. If not effective, can increase dose. If that fails, recommenda trial of lomotil. Will check a CRP and creatine today. Will schedule a ileoscopy to look for active Crohn's. 2) Perineal wound: Difficult problem. Will try to arrange a pelvic CT and a follow-up consult with Ryan Ruiz MD from colorectal surgery. It may be there are no good options for surgical correction, but an expert opinion would be worthwhile. If she can't get a CT because of her renal function, will try to get an MRI. Plan: -CRP, Creatinine, Pelvic CT and consult with Dr. Ruiz -ileoscopy -trial of imodium, if fails, trial of imodium Brent Horton MD documented in this encounter Plan of Treatment Upcoming Encounters Date Type Department Care Team (Late st Contact Info) Description 04/07/2024 9:00 EST Office Visit [facility] Endocrinology - [facility] [address] [place] [address] Vincenzo Rawls MD [address] [facility] [address] [place] [address] 08/22/2024 15:30 EDT Telemedicine [facility] Nephrology - [address] [id number] Jose L Whit[facility] MD [facility], [address] [place] [address] documented as of this encounter Results * (ABNORMAL) CREATININE (09/28/2013 10:52 EDT) Creatinine 1.20(H) 0.52 - 1.04 mg/dl [facility] GFR, Calculated 46(L) >60 ml/min/1.7 3m2 [facility] Blood specimen (specimen) 09/28/2013 10:52 EDT 09/28/2013 11:10 EDT us Brent Horton MD CHEMISTRY & BLOOD GAS ORDE RABLES Final Result Performing Organization Address City/[facility] Co de Phone Number [facility] [address] [place] [address] * (ABNORMAL) C-REACTIVE PROTEIN (09/28/2013 10:52 EDT) C-Reactive Protein 1.0(H) <1.0 mg/dl [facility] Blood specimen (specimen) 09/28/2013 10:52 EDT 09/28/2013 11:10 EDT us Brent Horton MD CHEMISTRY & BLOOD GAS ORDE RABLES Final Result Performing Organization Address [facility] Co de Phone Number [facility] [address] [place] [address] documented in this encounter Visit Diagnoses Diagnosis Crohn's disease ([facility])- Primary Regional enteritis of unspecified site documented in this encounter Care Teams Rn Hemo Dialysis Relationship Specialty Start Date End Date Mary Ann Goodman MD PCP - General 08/02/08 03/21/18 documented as of this encounter
--- OUTSIDE RECORDS SUMMARY | 2024-03-17 12:20 | XMS_ITS | Encounter Summary ---
Author Organization [facility] Address [address] [place] [address] Care Team Providers Care Sewing Supervisor Name Role Phone Mary Ann Goodman MD Primary Care Provider Unavailable Reason for Visit * Reason Comments Chronic Kidney Disease Encounter Details Date Type Department Care Team (Late st Contact Info) Description 08/31/2013 14:40 EDT Office Visit [facility] Nephrology [address] [address] Giovanni Anthony MD [address] [place] [phone] Chronic kidney disease, stage III (moderate) ([facility]) (Primary Dx); Nephrocalcinosis; Nephrolithiasis; Hematuria; Diarrhea with dehydration; Renal tubular acidosis Social History Tobacco Use Types Packs/Day Years Used Date Smoking Tobacco: Every Day Cigarettes Alcohol Use Standard Drinks/Week Comments No 0 [...] Sign Reading Time Taken Comments Blood Pressure 111/75 08/31/2013 1605 EDT Pulse 101 08/31/2013 1605 EDT Temperature - - Respiratory Rate - - Oxygen Saturation - - Inhaled Oxygen Concentration - - Weight 46.8 kg (103 lb 2.8 oz) 08/31/2013 1605 E DT Height - - Body Mass Index 20.15 08/12/2011 1255 EDT documented in this encounter Patient Instructions * Patient Instructions* Giovanni Anthony MD - 08/31/2013 15:35 EDT Reduce magnesium oxide to once daily 24hr urine collection (litholink) Lab test in ~ 1 month, same timeframe as urine test documented in this encounter Progress Notes * Giovanni Anthony MD - 08/31/2013 1617 EDT [facility] Nephrology New Patient Consultation DATE OF SERVICE: 08/31/2013 NAME: Zaira Collins REASON FOR VISIT: Chronic Kidney Disease DATE OF : 1955 HISTORY OF PRESENT ILLNESS: 57 y.o. year old female who I am requested to see in consultation by MARY ANN GOODMAN MD for Chronic Kidney Disease. History gathered from patient and review of medical records including nephrology evaluation by Dr. Justin French in 2008. Chronic Kidney Disease was first noted several years ago. It is of stage 3 severity with most recent serum creatinine 1.4, though there is substantial variability. 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 It is associated with diarrhea leading to volume depletion with episodes of ERNESTINA resolving with roman catholic of plasma volume. Past Medical History Diagnosis Date ??? Depression ??? Chronic kidney disease ??? Fibromyalgia ??? Crohn's disease s/p colectomy and small bowel resections with ileostomy ??? Nephrolithiasis unknown type, required procedrues for removal; no recent stones ??? Renal tubular acidosis [place] [facility], after bowel surgery ??? 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 Diarrhea with dehydration leading to recurrent episodes of ERNESTINA ??? Hematuria cystoscopy, renal CT, cytology unremarkable ??? Tachycardia rx with b-charu, asymptomatic Past Surgical History Procedure Laterality Date ??? Hysterectomy ??? Rectal surgery ??? Total colectomy ??? Small intestine surgery Current Outpatient Prescriptions Medication Sig ??? BIOTIN ORAL Take by mouth. ??? [...] mg tablet Take 400 mg by mouth 2 times daily . ??? metoprolol (LOPRESSOR) 25 mg tablet Take 25 mg by mouth daily. ??? potassium chloride (MICRO-K) 10 mEq capsule Take 20 mEq by mouth 2 times daily . ??? prochlorperazine (COMPAZINE) 10 mg tablet Take 10 mg by mouth 3 times daily. ??? sodium bicarbonate 650 mg Tab Take 1,300 mg by mouth 6 times daily . No Known Allergies SOCIAL HISTORY: current smoker FAMILY HISTORY: no family history of kidney disease REVIEW OF SYSTEMS: Cardiovascular: No chest pain Constitutional: No fever Respiratory: No hemoptysis Skin: No rash Eyes: No visual change Genitourinary: No dysuria, + chronic flank pain Gastrointestinal: No nausea Musculoskeletal: No inflammatory arthritis Neuro: no muscle jerks Mouth: No ulcers PHYSICAL EXAMINATION: Vital Signs: BP 111/75 Pulse 101 Wt 46.8 kg (103 lb 2.8 oz) BMI 20.15 kg/m2 Constitutional: No distress Mouth: No ulcers Cardiovascular: Heart regular; no abdominal bruit; edema absent Skin: No rash Gastrointestinal: Abdomen soft, non-tender, ostomy in LLQ Eyes: Sclerae anicteric Respiratory: Clear to auscultation bilaterally Neuro: No asterixis STUDIES: 08/31/13: k 5.4, co2 25, bun 17, cr 1.4, alb 4.2, ca 9.9, po4 4.4 Urinalysis today: sg 1.010, no blood, trace protein Urine microscopy performed by myself: > 25 sq epi/lpf, 0-1 rbc with no acanthocytes, no casts, no crystals Kidney ultrasound 03/02/13: r kidney 8.6cm, l kidney 9.6cm, no obstruction IVP 1999: No stones, mild medullary nephrocalcinosis Echo 06/24: Normal ejection fraction CT 08/30/12: Medullary nephrocalcinosis IMPRESSION: Chronic kidney disease stage 3 - Several potential etiologies at present. Recurrent episodes of AKIdue to volume depletion may lead to nephron loss. Nephrocalcinosis may be progressing. Glomerular disease is considered given persistent low-level microscopic hematuria, but this is less likely. Nephrocalcinosis - etiology of this not immediately clear to me. Patient at risk for several potential causes including calcium phosphate deposition from alkaline urine, oxalosis from IBD, hypercalciuria from high sodium intake. Further evaluation is planned Hypomagnesemia - serum magnesium levels are replete at 2.2 and 2.5 over the past 6 months. Patient reports dyspepsia and potentially increased ostomy output with the oral magnesium. Not any differentwith slo-mag. Could try reducing magnesium dose to see if this is enough and limits side-effects. Acidosis - Not known to me how diagnosis of renal tubular acidosis was made at [facility]. GI lossesof bicarbonate and potassium confound this. Diagnostic studies now that patient on buffer not goingto be useful, and won't have much effect on treatment. Hypokalemia - well managed with supplemental potassium. We discussed alternative formulations including potassium citrate, but patient happy with sodium bicarbonate combined with potassium chloride. RECOMMENDATIONS: 1. Reduce magnesium oxide to 400mg daily 2. 24hr urine for litholink 3. Measure BMP, magnesium around time of 24hr urine collection 4. Maintain adequate fluid/water intake 5. Return to clinic in 2 months Giovanni Anthony MD documented in this encounter Plan of Treatment Upcoming Encounters Date Type Department Care Team (Late st Contact Info) Description 04/07/2024 9:00 EST Office Visit [facility] Endocrinology - [facility] [address] [place] [address] Vincenzo Rawls MD 62 [facility] [address] [place] [address] 08/22/2024 15:30 EDT Telemedicine [facility] Nephrology - [address] [address] Jose L Whitley MD 1 [facility], [address] [place] [address] documented as of this encounter Visit Diagnoses Diagnosis Chronic kidney disease, stage III (moderate) ([facility])- Primary Chronic kidney disease, Stage III (moderate) Nephrocalcinosis Other disorder of calcium metabolism Nephrolithiasis Calculus of kidney Hematuria Hematuria, unspecified Diarrhea with dehydration Diarrhea Renal tubular acidosis Other specified disorders resulting from impaired renal function documented in this encounter Discontinued Medications Medication Sig Discontinue Reason Start Date End Da te Magnesium Chloride 64 mg tablet,delayed release (DR/EC) Take 64 mg by mouth 2 times daily. 08/31/2013 esomeprazole (NEXIUM) 20 mg capsule Take 64 mg by mouth 2 times daily. 08/31/2013 ibuprofen (MOTRIN) 800 mg tablet Take 800 mg by mouth 3 times daily. 08/31/2013 sodium bicarbonate 650 mg Tab Take 1,300 mg by mouth 6 times daily . Order modification 09/01/2013 magnesium oxide (MAG-OX) 400 mg tablet Take 400 mg by mouth 2 times daily . Order modification 09/01/2013 documented as of this encounter Historical Medications * This list may reflect changes made after this encounter. sodium bicarbonate 650 mg tablet Take 4 Tablets by mouth 3 times daily. 09/01/2013 magnesium oxide (MAG-OX) 400 mg tablet Take 800 mg by mouth daily. 09/01/2013 01/01/2022 magnesium oxide (MAG-OX) 400 mg tablet Take 400 mg by mouth 2 times daily . 09/01/2013 added in this encounter Care Teams Sewing Supervisor Relationship Specialty Start Date End Date Mary Ann Goodman MD PCP - General 08/02/08 03/21/18 documented as of this encounter
--- OUTSIDE RECORDS SUMMARY | 2024-03-17 12:20 | XMS_ITS | Encounter Summary ---
Author Organization [facility] Address [address] [place] [address] Care Team Providers Care Follow Up Clerk Name Role Phone Mary Ann Goodman MD Primary Care Provider Unavailable Reason for Visit * Reason Comments New Patient Visit new patient visit fo r nonhealing perianal would Encounter Details Date Type Department Care Team (Late st Contact Info) Description 01/04/2014 14:00 EDT Office Visit [facility] General Surgery - [address] [address] Ryan Ruiz MD [address] [place] [address], [address] [place] [address] Crohn's disease (CMS-HCC) (HCC-CMS) (Primary Dx) Discharge Disposition: Auto Discharge Social [...] Sign Reading Time Taken Comments Blood Pressure 100/68 01/04/2014 1408 EDT Pulse 72 01/04/2014 1408 EDT Temperature - - Respiratory Rate - - Oxygen Saturation - - Inhaled Oxygen Concentration - - Weight 46.3 kg (102 lb) 01/04/2014 1408 EDT Height 152.4 cm (5') 01/04/2014 1408 EDT Body Mass Index 19.92 01/04/2014 1408 EDT documented in this encounter Discharge Diagnoses Diagnosis 555.9 REGIONAL ENTERITIS NOS[ICD-9-CM] documented in this encounter Discharge Disposition Disposition Code Departure Means Destination Auto Discharge documented in this encounter Progress Notes * Ryan Ruiz MD - 01/04/2014 1450 EDT Subjective: Patient ID: Zaira Collins is [...] her about her options and realistic expectations. EUA with local [facility] Zaira was seen today for new patient visit. Diagnoses and associated orders for this visit: Crohn's disease Ryan Ruiz MD documented in this encounter Plan of Treatment Upcoming Encounters Date Type Department Care Team (Late st Contact Info) Description 04/07/2024 9:00 EST Office Visit [facility] Endocrinology - [address] [address] Vincenzo Rawls MD 62 [facility] [address] [place] [address] 08/22/2024 15:30 EDT Telemedicine [facility] Nephrology - [facility] [address] [place], [place] [phone] Jose L Whitley MD 1 [facility], Level [address] [place] [address] documented as of this encounter Visit Diagnoses Diagnosis Crohn's disease ([facility])- Primary Regional enteritis of unspecified site documented in this encounter Care Teams Follow Up Clerk Relationship Specialty Start Date End Date Mary Ann Goodman MD PCP - General 08/02/08 03/21/18 documented as of this encounter
--- OUTSIDE RECORDS SUMMARY | 2024-03-17 12:20 | XMS_ITS | Encounter Summary ---
Author Organization [facility] Address [address] [place] [address] Care Team Providers Care Department Administrator Name Role Phone Mary Ann Goodman MD Primary Care Provider Unavailable OrdoñezJennifer APRN Primary Care Provider + Lynn Saavedra MD Primary Care Provider Chary Ordoñez Primary Care Provider Reason for Visit * Reason Onset Date Comments Other 12/27/2012 Called pt and le ft message with new date and time of new NPV with Dr. Truong Encounter Details Date Type Department Care Team (Late st Contact Info) Description 12/27/2012 Telephone [facility] Gastroenterology - [address] [address] Navneet Truong MD Other (Called pt and left message with new date and time of new NPV with Dr. Truong) Social History Tobacco Use Types Packs/Day Years [...] encounter Miscellaneous Notes * Telephone Encounter - Tigist Mcdonald - 12/27/2012 1549 EDT Called pt and left message with new date and time of new NPV with Dr. Truong documented in this encounter Plan of Treatment Upcoming Encounters Date Type Department Care Team (Late st Contact Info) Description 04/07/2024 9:00 EST Office Visit [facility] Endocrinology - [facility] [address] [place] [address] Vincenzo Rawls MD 62 [facility] [address] [place] [address] 08/22/2024 15:30 EDT Telemedicine [facility] Nephrology - [address] [id number] Jose L Whitley MD [address] [place], [place] [address], [address] [place] [address] documented as of this encounter Visit Diagnoses Not on filedocumented in this encounter Care Teams Department Administrator Relationship Specialty Start Date End Date Mary Ann Goodman MD PCP - General 08/02/08 03/21/18 Jennifer Ordoñez APRN [address] [place] [address] PCP - General 03/22/18 07/06/22 Lynn Saavedra MD [address] [place] [address] PCP - General 07/07/22 04/26/23 Chary Ordoñez [address] [place] [address] PCP - General Family Medicine - Primary Care 04/27/23 documented as of this encounter
--- OUTSIDE RECORDS SUMMARY | 2024-03-17 12:20 | XMS_ITS | Encounter Summary ---
Author Organization [facility] Address [address] [place] [address] Care Team Providers Care Transit Clerk Name Role Phone Mary Ann Goodman MD Primary Care Provider Unavailable Reason for Referral * Radiology Services (Routine/Next Available) - Specialty Report Received Specialty Diagnoses / Procedures Referred By Savannah ware Referred To Contact Diagnoses Crohn's disease with complication, unspecified gastrointestinal tract location (HCC-CMS) Procedures MR PELVIS ANAL FISTULA W/WO CONTRAST CHG MRI, PELVIS, COMBO Ryan Ruiz MD Phone: tel: fax: Referral ID Status Reason Start Date Expiration Date V isits Requested Visits Authorized [id number] Specialty Report Received 11/09/2017 1 1 Encounter Details Date Type Department Care Team (Late st Contact Info) Description 11/06/2017 Orders Only [facility] General Surgery - [place] [address] [place] [address] Li Carvajal, CHARLIE [address] [place] [address] Crohn's disease with complication, unspecified gastrointestinal tract [...] [facility] [address] [address] Vincenzo Rawls MD [address] [facility] [address] [place] [phone] 08/22/2024 15:30 EDT Telemedicine [facility] Nephrology - [facility] [address] [place], [place] [id number] Jose L Whitley MD [address] [place] [address], [address] [place] [phone] documented as of this encounter Procedures Procedure Name Priority Date/Time Associated Diagnosis Comments MR PELVIS ANAL FISTULA W/WO CONTRAST Routine 11/25/2017 10:44 EDT Crohn's disease with complication, unspecified gastrointestinal tract location ([facility]) documented in this encounter Results * MR PELVIS ANAL FISTULA W/WO CONTRAST (11/25/2017 10:44 EDT) Anatomical Region Laterality Modality Other 11/25/2017 10:4 4 EDT 11/25/2017 16:08 EDT Narrative 11/25/2017 16:08 EDT MR PELVIS ANAL FISTULA WO ?? 11/25/2017 10:44 AM Signs and Symptoms/Comments: ?? K50.919-Crohn's disease, unspecified, with unspecified complications ([facility])-ICD-10; evaluation for any residual cavity or possible anal fistula Technique: Contrast-enhanced MR of the pelvis was performed with the following sequences: Sagittal STIR, coronal T2, axial SPAIR, axial T2, axial T1, axial T1 with fat suppression, and postcontrast three plane T1 with fat suppression. Comparison: CT pelvis dated October 14, 2013 Findings: Uterus, cervix, and vagina: Patient is status post hysterectomy. Small amount of fluid and gas are seen in the vaginal canal. The vaginal cuff is intact. Ovaries: The ovaries are not identified. Bladder and urethra: The urinary bladder is decompressed, but otherwise unremarkable. There is a small crescentic 7 mm fluid structure along the right lateral aspect of the mid urethra (axial T2 series 401; #15), which likely reflects a decompressed cyst or urethral diverticulum. Bowel: Patient is status post proctocolectomy with expected postsurgical changes in the adjacent soft tissues. There is a multilobulated peripherally enhancing fluid collection along the superior aspect of the residual anal canal with multiple tubular projections extending superiorly and inferiorly which measure approximately 1.5 cm in craniocaudal and transverse dimension (postcontrast coronal series 901; #54), as well as approximately 1.6 cm in AP dimension (postcontrast sagittal series 801; #84). There is a thin, left paramedian anterior extension from this collection which extends to involve the posterior vaginal wall but without visible direct communication to the vaginal lumen (axial postcontrast series 701; #61). Lymphovascular: The major vascular structures show no significant normality. There is no lymphadenopathy. Peritoneal cavity: Inflammatory changes are noted in the pelvis adjacent to the above-described fluid collection. Abdominal wall: No significant abnormality, no bowel containing hernia. Musculoskeletal: No significant abnormality. Impression: 1. Multilobulated peripherally enhancing fluid collection along the superior margin of the residual anal canal which measures up to 1.6 cm in maximum dimension. A thin projection of this collection extends anteriorly left paramedian to the vaginal wall with no visible direct communication to lumen. No fistula is identified. 2. Small 7 mm right periurethral diverticulum or decompressed periurethral cyst. Dr. Henson reviewed images with discussion of the fluid collection with Dr. Ryan Ruiz shortly after exam completed.. I have personally reviewed the images and the above interpretation and agree with the findings. Procedure Note Hung Henson MD - 11/25/2017 MR PELVIS ANAL FISTULA WO 11/25/2017 10:44 AM Signs and Symptoms/Comments: K50.919-Crohn's disease, unspecified, with unspecified complications ([facility])-ICD-10; evaluation for any residual cavity or possible anal fistula Technique: Contrast-enhanced MR of the pelvis was performed with the following sequences: Sagittal STIR, coronal T2, axial SPAIR, axial T2, axial T1, axial T1 with fat suppression, and postcontrast three plane T1 with fat suppression. Comparison: CT pelvis dated October 14, 2013 Findings: Uterus, cervix, and vagina: Patient is status post hysterectomy. Small amount of fluid and gas are seen in the vaginal canal. The vaginal cuff is intact. Ovaries: The ovaries are not identified. Bladder and urethra: The urinary bladder is decompressed, but otherwise unremarkable. There is a small crescentic 7 mm fluid structure along the right lateral aspect of the mid urethra (axial T2 series 401; #15), which likely reflects a decompressed cyst or urethral diverticulum. Bowel: Patient is status post proctocolectomy with expected postsurgical changes in the adjacent soft tissues. There is a multilobulated peripherally enhancing fluid collection along the superior aspect of the residual anal canal with multiple tubular projections extending superiorly and inferiorly which measure approximately 1.5 cm in craniocaudal and transverse dimension (postcontrast coronal series 901; #54), as well as approximately 1.6 cm in AP dimension (postcontrast sagittal series 801; #84). There is a thin, left paramedian anterior extension from this collection which extends to involve the posterior vaginal wall but without visible direct communication to the vaginal lumen (axial postcontrast series 701; #61). Lymphovascular: The major vascular structures show no significant normality. There is no lymphadenopathy. Peritoneal cavity: Inflammatory changes are noted in the pelvis adjacent to the above-described fluid collection. Abdominal wall: No significant abnormality, no bowel containing hernia. Musculoskeletal: No significant abnormality. Impression: 1. Multilobulated peripherally enhancing fluid collection along the superior margin of the residual anal canal which measures up to 1.6 cm in maximum dimension. A thin projection of this collection extends anteriorly left paramedian to the vaginal wall with no visible direct communication to lumen. No fistula is identified. 2. Small 7 mm right periurethral diverticulum or decompressed periurethral cyst. Dr. Henson reviewed images with discussion of the fluid collection with Dr. Ryan Ruiz shortly after exam completed.. I have personally reviewed the images and the above interpretation and agree with the findings. us Ryan Ruiz MD IMG MRI ORDERABLES Final R esult documented in this encounter Visit Diagnoses Diagnosis Crohn's disease with complication, unspecified gastrointestinal tract location ([facility])- Primary documented in this encounter Care Teams Transit Clerk Relationship Specialty Start Date End Date Mary Ann Goodman MD PCP - General 08/02/08 03/21/18 documented as of this encounter
--- OUTSIDE RECORDS SUMMARY | 2024-03-17 12:20 | XMS_ITS | Encounter Summary ---
Author Organization [facility] Address [address] [place] [address] Care Team Providers Care Chairman And Ceo Name Role Phone Jennifer Ordoñez APRN Primary Care Provider + Reason for Visit * Reason Comments Chronic Kidney Disease Serum creatinine was 1.6 mg/dL in October 2013, 2.1 mg/dL in November 2017 and down to 1.83 mg/dL in January 2018. Other I have had renal tu bular acidosis for 10-20 years. She is on oral potassium and magnesium supplements for low levels of these electrolytes. Other I have had Ulcerati ve Colitis since I was 9 years old. At age 20 years, during another GI surgery, I was told it had transformed to Crohn's Disease. Nephrolithiasis She has had lithotri psy for oxalate stones removal. Other My new doctor took away some meds from me including Percocet, Cymbalta, Diazepam (Jennifer Ordoñez is her new PCP). As a result of the discontinuation of these medications, she feels very bad now and she is advised to revisit these concerns about anxiety and crying all the time. I can't sleep. The friend says that the patient calls her 15 times a day. * Consult (Routine) - Closed Specialty Diagnoses / Procedures Referred By Savannah ware Referred To Contact Nephrology Diagnoses CKD (chronic kidney disease) stage 3, GFR 30-59 ml/min ([facility]) Renal cyst Renal tubular acidosis Hematuria Nephrolithiasis Jennifer Ordoñez APRN [address] [place] [address] Phone: tel: fax: [facility] Nephrology [address] [address] Phone: tel: fax: Referral ID Status Reason Start Date Expiration Date Visits Re quested Visits Authorized [id number] Closed 1 1 Encounter Details Date Type Department Care Team (Late st Contact Info) Description 03/22/2018 14:20 EST Office Visit [facility] Nephrology [address] [address] Josue Whitley MD [address] [place] [address], [address] [place] [phone] Chronic kidney disease, stage III (moderate) ([facility]) (Primary Dx) Social History Tobacco Use Types [...] Sign Reading Time Taken Comments Blood Pressure 137/77 03/22/2018 1415 EST Pulse 83 03/22/2018 1415 EST Temperature - - Respiratory Rate - - Oxygen Saturation - - Inhaled Oxygen Concentration - - Weight 46.2 kg (101 lb 14.4 oz) 03/22/2018 1415 EST Height 149.9 cm (4' 11) 03/22/2018 1415 EST Body Mass Index 20.58 03/22/2018 1415 EST documented in this encounter Functional Status [...] Progress Notes * Josue Whitley MD - 03/22/2018 1420 EST NEW NEPHROLOGY CONSULT OFFICE VISIT NOTE SUBJECTIVE New patient visit for fluctuating serum creatinine values as captured below. 03/22/2018 Chief Complaint Patient presents with ??? Chronic Kidney Disease Serum creatinine was 1.6 mg/dL in October 2013, 2.1 mg/dL in November 2017 and down to 1.83 mg/dL in January 2018. ??? Other I have had renal tubular acidosis for 10-20 years. She is Potassium and magnesium supplements for low levels of these electrolytes. ??? Other I have had Ulcerative Colitis since I was 9 years old. At age 20 years, during some other GI surgery, I was told it had transformed to Crohn's Disease. ??? Nephrolithiasis She has had lithotripsy for oxalate stones removal. ??? Other My new doctor took away some meds from me including Percocet, Cymbalta, Diazepam (Jennifer Ordoñez). She feels very bad now and she is advised to revisit these concerns about anxiety and crying all the time. I can't sleep. The friend says that the patient calls her 15 times a day. HPI She describes a new state of her mental state following a reported discontinuation of certain of her medications. Since then I can't sleep. The patient noted that I am crying all the time. 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 She is on oral potassium and magnesium supplements for low levels of these electrolytes. I have had Ulcerative Colitis since I was 9 years old. At age 20 years, during another GI surgery, I was told it had transformed to Crohn's Disease. She has had lithotripsy for oxalate stones removal. My new doctor took away some meds from me including Percocet, Cymbalta, Diazepam (Jennifer Ordoñez is her new PCP). As a result of the discontinuation of these medications, she feels very bad now and she is advised to revisit these concerns about anxiety and crying all the time. I can't sleep. The friend says that the patient calls her 15 times a day. Patient Active Problem List Diagnosis ??? Chronic [...] Renal tubular acid[place] [facility] bowel [place] ??? Tachycardia rx with b-charu, asymptomatic Past Surgical History: Procedure Laterality Date ??? COLON SURGERY ??? HYSTERECTOMY ??? RECTAL SURGERY ??? SMALL INTESTINE SURGERY ??? TOTAL COLECTOMY Current Outpatient Medications: acetaminophen (TYLENOL) 325 mg tablet BIOTIN ORAL cyanocobalamin (VITAMIN B-12) 1,000 mcg/mL injection Cyanocobalamin 1,000 mcg TbER cyclobenzaprine (FLEXERIL) 10 mg tablet DIAZepam (VALIUM) 5 mg tablet DULoxetine (CYMBALTA) 60 mg capsule estradiol (VIVELLE) 0.025 mg/24 hr patch semiweekly Ginkgo Biloba 40 mg tablet Hydromorphone (DILAUDID) 1 mg/mL liquid loperamide (IMODIUM A-D) 2 mg tablet magnesium oxide (MAG-OX) 400 mg tablet metoprolol (LOPRESSOR) 25 mg tablet ONDANSETRON HCL ORAL oxyCODONE-acetaminophen (PERCOCET) 5-325 mg per tablet potassium chloride (MICRO-K) 10 mEq capsule sodium bicarbonate 650 mg tablet No current facility-administered medications for this visit. Allergies Allergen Reactions ??? Chantix [Varenicline] SEISURES Social History Tobacco Use ??? Smoking status: [...] negative except for pertinent positives in the HPI. BP 137/77 (BP Cuff Location: Left arm, Patient Position: Sitting, BP Cuff Sizes: Adult, regular) Pulse 83 Ht (!) 149.9 cm (59) Wt 46.2 kg (101 lb 14.4 oz) BMI 20.58 kg/m?? General appearance: alert, cooperative, no distress Head: Normocephalic, without obvious abnormality, atraumatic Neck: supple, symmetrical, trachea midline and no JVD Lymph nodes: No cervical adenopathy. Lungs: clear to auscultation bilaterally Heart: regular rate and rhythm, S1, S2 normal, no murmur, click, rub or gallop, no rub Abdomen: soft, non-tender; bowel sounds normal; no masses, no organomegaly, Left lower quadrant ileostomy in situ. Back: symmetric, no curvature. ROM normal. No CVA tenderness. Neurologic: Grossly normal Mental Status: awake and alert; oriented to person, place, and time Extremities: extremities warm, atraumatic, no cyanosis or edema Josue Whitley MD 03/22/2018 14:54 Lab Results Component Value Date K 3.7 05/04/2008 K 4.6 11/24/2007 NA 137 05/04/2008 NA 140 11/24/2007 CL 107 05/04/2008 CL 103 11/24/2007 CO2 23 (L) 05/04/2008 CO2 26 11/24/2007 TBIL <0.5 11/24/2007 AST 37 11/24/2007 ALT 20 11/24/2007 LABALBU 5.0 (H) 11/24/2007 TP 8.4 (H) 11/24/2007 CREATININE 1.20 (H) 09/28/2013 CREATININE 0.88 05/04/2008 CALCGFR 46 (L) 09/28/2013 CALCGFR >60 05/04/2008 CALCIUM 9.3 11/24/2007 CALCCA 8.7 11/24/2007 SERGLU 90 11/24/2007 Lab Results Component Value Date WBC 6.03 09/28/2013 WBC 8.30 05/24/2008 RBC 3.99 09/28/2013 RBC 3.39 (L) 05/24/2008 HGB 13.6 09/28/2013 HGB 11.2 (L) 05/24/2008 HCT 38.8 09/28/2013 HCT 32.5 (L) 05/24/2008 MCV 97 09/28/2013 MCV 96 05/24/2008 MCH 34.1 (H) 09/28/2013 MCH 33.0 05/24/2008 MCHC 35.1 09/28/2013 MCHC 34.5 05/24/2008 RDWCV 12.9 09/28/2013 RDWCV 14.6 05/24/2008 PLT 240 09/28/2013 PLT 484 (H) 05/24/2008 No results found for: WBCU, RBCU, SQUAEPIU, RENEPIU, BACTERIA, CRYST, LABCAST, UACOMMENT, COMUAUCMI No results found for: COLOR, CLARITYU, GLUCOSEU, BILIRUBINUR, KETONES, LABSPEC, BLOODU, PHUR, PROTEINUA, UROBILINOGEN, NITRITE, LEUKESTER The latest labs from 03-21-18 show a potassium of 3.1 mmol/L, an improved creatinine of 1.47 mg/dL, hemoglobin 11.6 g/dL, albumin 3.2 g/dL and Na of 134 mmol/L. ASSESSMENT & PLAN Crohn's Disease and/or Ulcerative Colitis s/p left ileostomy with subsequent secondary oxalosis causing nephrolithiasis and associated renal tubular acidosis with malabsorption on Na bicarbonate supplement, potassium and magnesium supplements. Chronic kidney Disease with fluctuating serum creatinine is likely related to volume changes due todiarrhea/ileostomy output with dehydration. Will recommend basic metabolic profile every 2 months and plan to RTC in 6 months. Pain management/Anxiety/Depression with these associated metabolic/other diseases requires close monitoring and management and she was advised to revisit the issue of the discontinued medications with her new PCP (Percocet, Cymbalta, Diazepam, etc) as she is not coping with the recently discontinued drugs. Dehydration - this is an issue here with the Gi syndrome here. documented in this encounter Miscellaneous Notes * Addendum Note - Josue Whitley MD - 03/22/2018 1420 ESTAddended by: JOSUE WHITLEY on: 03/22/2018 15:14 Modules accepted: Orders documented in this encounter Plan of Treatment Upcoming Encounters Date Type Department Care Team (Late st Contact Info) Description 04/07/2024 9:00 EST Office Visit [facility] Endocrinology - [address] [address] Vincenzo Rawls MD [address] [place] [address] [address] [place] [phone] 08/22/2024 15:30 EDT Telemedicine [facility] Nephrology - [address] [phone] Josue Whitley MD [address] [facility], [address] [place] [phone] documented as of this encounter Visit Diagnoses Diagnosis Chronic kidney disease, stage III (moderate) ([facility])- Primary Chronic kidney disease, Stage III (moderate) documented in this encounter Historical Medications * This list may reflect changes made after this encounter. cyanocobalamin (VITAMIN B12) 1,000 mcg/mL injection Inject 1 mL into the muscle every 28 days. added in this encounter Care Teams Chairman And Ceo Relationship Specialty Start Date End Date Jennifer Ordoñez APRN [address] [place] [phone] PCP - General 03/22/18 07/06/22 documented as of this encounter
--- OUTSIDE RECORDS SUMMARY | 2024-03-17 12:20 | XMS_ITS | Encounter Summary ---
Author Organization [facility] Address [address] [place] [address] Care Team Providers Care Oxide Furnace Tender Name Role Phone Mary Ann Goodman MD Primary Care Provider Unavailable Encounter Details Date Type Department Care Team (Late st Contact Info) Description 06/01/2008 Before PRISM Converted Visit (Maple) [facility] - Maple conversion [address] [place] [address] Shannan Oshea, PA-C [address] [place] [phone] Social History Tobacco Use Types Packs/Day Years Used Date Smoking Tobacco: Never Assessed Comments Unknown Sex and Gender Information Value Date Recorded Sex Assigned at Not on file Legal Sex Female 17:52 EST Gender Identity Female 10/11/2020 8:15 EDT Sexual Orientation Not on file documented as of this encounter Plan of Treatment Upcoming Encounters Date Type Department Care Team (Late st Contact Info) Description 04/07/2024 9:00 EST Office Visit [facility] Endocrinology - [facility] [address] [place], [place] [phone] Vincenzo Rawls MD 62 [facility] [address] [place] [phone] 08/22/2024 15:30 EDT Telemedicine [facility] Nephrology - [address] [place] [address] [place] [address] Jose L Whitley MD 1 [facility] [address] [place] [phone] documented as of this encounter Visit Diagnoses * Evaluation - Shannan Oshea - 09/06/2008 1803 EDT DIVISION OF UROLOGY NEW PATIENT EVALUATION - 06/01/2008 Dusty Espinosa MD, FACS [facility] [address] [place] [address] Espinosa: Zaira Collins was seen in our office today per your recommendation for workup of her recent gross hematuria. Zaira is a very pleasant 52-year-old female who has an extensive history of Crohndiseaseand colitis with a resultant proctocolectomy with ileostomy at [facility] quite some time ago. She recently underwent an incision and drainage of her supralevator abscess from which she is recovering well. Since the time of her surgery at the end of April, she states she has had gross hematuria. She states that it has not cleared up since that timeand that it has not improved or worsened. She denies any dysuria, frequency, or urgency. She denies any fevers, chills, or night sweats. She does state that she has some intermittent right flank pain. She does have a history of renal tubular acidosis which was diagnosed seven to eight years ago by someone at [facility]. She does also have a history of kidney stones times four, at which times she has also experienced gross hematuria but it had always cleared up after her stones were removed. She has had to have all of her stones lasered as they were not able to pass on their own, and all of these procedures were done at [facility]. She recently had a urinalysis done at [facility] which showed greater than 100 red bloodcells. She also had a renal colic CT done that showed bilateral medullary nephrocalcinosis, which is unchanged from previous films; however, we do not have that film here in our office today. We do have a CT that was done in March which does indeed show bilateral medullary nephrocalcinosis. Also on thatrenal colic CT there is no hydronephrosis or stones in the system. She also denies any urine draining from her wound site. The patient has no known drug allergies. Medications include: 1. K-Dur 20 mg p.o. b.i.d. 2. Estrasorb two packages once daily. 3. Flexeril 10 mg p.o. t.i.d. 4. Calcium with vitamin D one tablet p.o. b.i.d. 5. Valium 5 mg one tablet p.o. b.i.d. 6. Sodium bicarb 650 mg p.o. q.i.d. 7. A B12 injection monthly. 8. Maxalt 5 mg p.r.n. 9. Black cohosh 540 mg p.o. once daily. 10. Percocet as needed for pain. Past medical history is significant for renal tubular acidosis, Crohns disease, arthritis, chronic pain, perineal abscess with subsequently incision and drainage, a proctocolectomy with ileostomy. Family history is significant for an uncle with chronic kidney disease who is hemodialysis dependent. He also underwent a renal transplant. Her mother has colitis and her sister has diverticulitis. Social history is significant for approximately [id number] history of smoking. She denies any alcohol use. She is disabled but used to work at [employer]. On physical examination, the patient had a blood pressure of 126/76, pulse of 104, respirations of 20. Weight of 91 pounds and height of 5 feet. She was slightly anxious appearing in the office today. She was nervous about her hematuria. She did have some CVA tenderness to palpation bilaterally on the left greater than the right even though she states her right side usually bothersher. She did bring in a urine sample from home, which was cranberry colored with no clots. A bladder scan in the office today revealed a postvoid residual of 8 A cystoscopy was done in the office today by Dr Luevano which will be dictated in a separate procedure note. I had an approximately 30-minute discussion with Zaira about the possible etiologies of her hematuria. Of course the first thing we want to rule out is tumor or malignancy of the urinary tract. Her CT did show some bilateral renal cysts but no tumors were noted. findings of the cystoscopy will be found in the separate procedure note, as well. Her urinalysis from [facility] did show greater than 100 red blood cells but no cytology was done so we will send her urine for cytology today. Her hematuria may also be due to an infection, and we will send her urine for a culture to rule that out and start her on a seven-day course of Macrobid prophylactically. She does have a significant history of renal tubular acidosis, which may also be contributing to her hematuria. Her recent renal function labs were normal and is not retaining any urine currently, which his good. I would like to see christiano in one week to follow up on her urinalysis results and to further discuss her hematuria. She was instructed to drink a lot of water and to take the antibiotic in the interim. It was a pleasure seeing Zaira in the office today. I will, of course, continue to keep you informed of her urological care and followup. Yours sincerely, Signed by ARMIDA Salmeron 06/05/2008 14:39 Dictated by: ARMIDA Salmeron - ARIMDA Salmeron P - [facility] Job ID: [id number] Document ID: [id number] cc: Dusty Espinosa MD, FACS MD Cheikh Billings MD documented in this encounter Care Teams Oxide Furnace Tender Relationship Specialty Start Date End Date Mary Ann Goodman MD PCP - General 08/02/08 03/21/18 documented as of this encounter
--- OUTSIDE RECORDS SUMMARY | 2024-03-17 12:20 | XMS_ITS | Encounter Summary ---
Author Organization [facility] Address [address] [place] [address] Care Team Providers Care Etl Bi Developer Name Role Phone Mary Ann Goodman MD Primary Care Provider Unavailable Encounter Details Date Type Department Care Team (Late st Contact Info) Description 02/24/2014 11:30 EST - 02/24/2014 23:59 EST Hospital Encounter [facility] Endoscopy Outpatient [address] [place] [address] Brent [facility] MD 111 [facility] [address] [place] [phone] Discharge Disposition: Home or Self Care Social [...] Sign Reading Time Taken Comments Blood Pressure 108/72 02/24/2014 1521 EST Pulse 91 02/24/2014 1210 EST Temperature 36 ??C (96.8 ??F) 02/24/2014 1210 EST Respiratory Rate 15 02/24/2014 1441 EST Oxygen Saturation 99% 02/24/2014 1441 EST Inhaled Oxygen Concentration - - Weight 41.7 kg (92 lb) 02/24/2014 1213 EST Height 149.9 cm (4' 11) 02/24/2014 1213 EST Body Mass Index 18.58 02/24/2014 1213 EST documented in this encounter Medications at [...] daily. 6 documented as of this encounter Discharge Disposition Disposition Code Departure Means Destination Home or Self [place] documented in this encounter H&P Notes * Brent Horton MD - 02/24/2014 1333 EST Endoscopy Sedation for Procedure History & Physical Date: 02/24/2014 Time: 13:33 Location: [address] Planned Procedure: Ileoscopy Chief Complaint/Indications for Procedure: crohn's disaease/pain History Previous Complication with Sedation and/or Anesthesia? No Allergies: No Known Allergies Current Medications: Current Outpatient Prescriptions Medication Sig Dispense Refill ??? acetaminophen (TYLENOL) 325 mg tablet Take 3 Tabs by mouth every 6 hours as needed for Pain. ??? BIOTIN ORAL Take by mouth. ??? [...] onto the skin every 7 days . ??? magnesium oxide (MAG-OX) 400 mg tablet [...] 3 Tabs by mouth 4 times daily. Current Facility-Administered Medications Medication Route Frequency ??? lactated ringers (LR) infusion intravenous CONTINUOUS ??? meperidine (PF) (DEMEROL) 100 mg/mL injection 25-200 mg intravenous Once PRN ??? midazolam (PF) (VERSED) 1 mg/mL injection 1-10 mg intravenous Once PRN ??? sodium chloride 0.9 % (NS) infusion intravenous CONTINUOUS Past Medical History: Past Medical History Diagnosis Date ??? Depression [...] ??? Anomaly, cardiac tachycardia ??? Mental disorder Social History: Past Surgical History Procedure Laterality Date ??? Hysterectomy ??? Rectal surgery ??? Total colectomy ??? Small intestine surgery ??? Colon surgery History Substance Use Topics ??? Smoking status: Current Every Day Smoker -- 1.00 packs/day ??? Smokeless tobacco: Never Used ??? Alcohol Use: No Family History: Family History Problem Relation Age of Onset ??? Stomach Cancer Neg Hx ??? Rectal Cancer Neg Hx ??? Pancreatic Cancer Neg Hx ??? Esophageal Cancer Neg Hx ??? Colon Cancer Neg Hx Review of Systems as pertinent: Physical Exam Vital Signs: BP 111/76 Pulse 91 Temp(Src) 36 ??C (96.8 ??F) (Tympanic) Resp 16 Ht 149.9 cm (59) Wt 41.731 kg (92 lb) BMI 18.57 kg/m2 SpO2 99% Heart Examination: Cardiac Regularity: Regular Respiratory Examination: Respiratory Pattern: Regular Breath Sounds Right: Clear Breath Sounds Left: Clear Abdominal Examination: Soft, non-tender, bowel sounds normal, no masses, no organomegaly Additional physical exam related to the proposed procedure, patient activity, disease state and treatment as pertinent: Assessment Previous complications with sedation or anesthesia?: No Airway Concerns: None Anesthesia Classification: ASA 2 Plan: Proceed with sedation for procedure Fasting Time: Time of last liquid intake: 0545 Time of last solid intake: 1800 Date of last solid intake: 02/23/14 Patient Appropriate Candidate for Planned Sedation?: Yes Brent [facility]orton MD 02/24/2014 13:33 documented in this encounter Procedure Notes * MINING TEACHER, SCAN 2 - 02/25/2014 0033 ESTAssociated Order(s): PROCEDURE REPORTS - SCANNED documented in this encounter Plan of Treatment Upcoming Encounters Date Type Department Care Team (Late st Contact Info) Description 04/07/2024 9:00 EST Office Visit [facility] Endocrinology - [facility] [address] [place] [address] Vincenzo Rawls MD 62 [facility] [address] [place] [phone] 08/22/2024 15:30 EDT Telemedicine [facility] Nephrology - [address] [place] [address] [place], [place] [phone] Jose L Whitley MD 1 [facility], [address] [place] [phone] documented as of this encounter Procedures Procedure Name Priority Date/Time Associated Diagnosis Comments PROCEDURE REPORTS - SCANNED 02/25/2014 0:33 EST documented in this encounter Results * PROCEDURE REPORTS - SCANNED (02/25/2014 0:33 EST) 02/25/2014 0:33 EST Narrative 02/25/2014 2:56 EST Procedure Note MINING TEACHER, SCAN 2 - 02/25/2014 0:33 EST us Scan 2 Census Enumerator PROCEDURE/MINOR SURGICAL OR DERABLES Final Result documented in this encounter Visit Diagnoses Not on filedocumented in this encounter Administered Medications Inactive Administered Medications - up to 3 most recent administrations Medication Order MAR Action Action Date Dose Rate Site meperidine (PF) (DEMEROL) 100 mg/mL injection 25-200 mg 25-200 mg, intravenous, ONCE PRN, 1 dose, Starting on Thu02/24/14 at 1158, Until Thu02/24/14 at 1359, Other, sedation, Routine, Intraprocedure Given 02/24/2014 13:59 EST 100 mg midazolam (PF) (VERSED) 1 mg/mL injection 1-10 mg 1-10 mg, intravenous, ONCE PRN, 1 dose, Starting on Thu02/24/14 at 1158, Until Thu02/24/14 at 1400, Sedation, Routine, Intraprocedure Given 02/24/2014 14:00 EST 4 mg documented in this encounter Orders Medications Ordered That Gerald ht Not Have Been Administered Count Last Ordered Date First Ordered Date lactated ringers (LR) infusion 1 02/24/2014 sodium chloride 0.9 % (NS) infusion 1 02/24 IV Count Last Ordered Date First Orde red Date IV REQUEST 1 02/24/2014 Discharge Count Last Ordered Date First Orde red Date DISCHARGE PATIENT 1 02/24/2014 documented in this encounter Care Teams Etl Bi Developer Relationship Specialty Start Date End Date Mary Ann Goodman MD PCP - General 08/02/08 03/21/18 documented as of this encounter
--- OUTSIDE RECORDS SUMMARY | 2024-03-17 12:20 | XMS_ITS | Encounter Summary ---
Author Organization [facility] Address [address] [place] [address] Care Team Providers Care Corporate Real Estate Specialist Name Role Phone Mary Ann Goodman MD Primary Care Provider Unavailable Encounter Details Date Type Department Care Team (Late st Contact Info) Description 10/14/2013 13:07 EDT - 10/14/2013 23:59 EDT Hospital Encounter [address] [address] Brent Horton MD [address] [place] [address], [address] [place] [phone] Discharge Disposition: Home or Self Care Social [...] on file documented as of this encounter Discharge Diagnoses Diagnosis V72.5 RADIOLOGICAL EXAM NEC[ICD-9-CM] documented in this encounter Medications at Time of Discharge potassium chloride (MICRO-K) 10 mEq capsule Take 2 Capsules by mouth daily. sodium bicarbonate 650 mg tablet Take 4 Tablets by mouth 3 times daily. 09/01/2013 BIOTIN ORAL Take 5,000 mg by mouth [...] Code Departure Means Destination Home or Self Nursing Home documented in this encounter Plan of Treatment Upcoming Encounters Date Type Department Care Team (Late st Contact Info) Description 04/07/2024 9:00 EST Office Visit [facility] Endocrinology - [address] [address] Vincenzo Rawls MD [address] [place] [address] [address] [place] [phone] 08/22/2024 15:30 EDT Telemedicine [facility] Nephrology - [address] [phone] Jose L Whitley MD 1 [facility], [address] [place] [phone] documented as of this encounter Procedures Procedure Name Priority Date/Time Associated Diagnosis Comments CREATININE, ISTAT Routine 10/14/2013 15: 11 EDT documented in this encounter Results * (ABNORMAL) CREATININE, ISTAT (10/14/2013 15:11 EDT) Creatinine, i-STAT 1.6(H) 0.7 - 1.5 mg/dl [facility] occupational health nursing director ID [id number] [facility] Comment:Test performed by [email or web address]. 10/14/2013 15:1 1 EDT 10/14/2013 16:50 EDT us Provider Unknown POINT OF CARE TEST ORDERABLE S Final Result [facility] [address] [place] [address] documented in this encounter Visit Diagnoses Not on filedocumented in this encounter Care Teams Corporate Real Estate Specialist Relationship Specialty Start Date End Date Mary Ann Goodman MD PCP - General 08/02/08 03/21/18 documented as of this encounter
--- OUTSIDE RECORDS SUMMARY | 2024-03-17 12:20 | XMS_ITS | Encounter Summary ---
Author Organization [facility] Address [address] [place] [address] Care Team Providers Care Meal Cooker Name Role Phone Unavailable Primary Care Provider Unavailabl e Encounter Details Date Type Department Care Team (Late st Contact Info) Description 06/01/2008 10:08 EDT Hospital Encounter [facility] [address] [place] [address] Shannan Oshea, PACheloC [address] [place] [phone] Social History Tobacco Use Types Packs/Day [...] EST Office Visit [facility] Endocrinology - [facility] [address] [place] [address] Vincenzo Rawls MD 62 [facility] [address] [place] [address] 08/22/2024 15:30 EDT Telemedicine [facility] Nephrology - [facility] [place] [address] [place], [place] [phone] Jose L Whitley MD 1 [facility], [address] [place] [phone] documented as of this encounter Visit Diagnoses Not on filedocumented in this encounter
--- OUTSIDE RECORDS SUMMARY | 2024-03-17 12:20 | XMS_ITS | Encounter Summary ---
Author Organization [facility] Address [address] [place] [address] Care Team Providers Care Forming Process Line Worker Name Role Phone Mary Ann Goodman MD Primary Care Provider Unavailable Encounter Details Date Type Department Care Team (Late Contact Info) Description 10/18/2010 Results Only [facility] Services - [facility] ([address] [phone] Mary Ann Goodman MD Social History Tobacco Use Types Packs/Day [...] Description 04/07/2024 9:00 EST Office Visit [facility] Endocrinology - [facility] [address] [place] [address] Vincenzo Rawls MD 62 [facility] [address] [place] [phone] 08/22/2024 15:30 EDT Telemedicine [facility] Nephrology - [facility] [place] 1 [place], [place] [phone] Jose L Whitley MD [facility] [address] [place] [phone] documented as of this encounter Procedures Procedure Name Priority Date/Time Associated Diagnosis Comments PAP TEST- RESULT ONLY Routine 10/18/2010 0:00 EDT documented in this encounter Results * PAP TEST- RESULT ONLY (10/18/2010 0:00 EDT) Pathology Report: CYTOPATHOLOGY REPORT ? Reports generated via electronic interface contain original data; ? however they are lacking the format of the original report. ? Caution should be taken when reading/interpreti ng unformatted reports. ? Name: ? ZAIRA COLLINS ? Accession #: ? [id number] ? : ? 1955 (Age: 55) ??F ?Collect Date: ? 10/18/2010 ? Location: ? [facility] ? Receive Date: ? 10/22/2010 ? Provider: ?MARY ANN NIEMIRA MD ? Copy to: ? Specimen/Source: ?Pap Test, Vagina, ThinPrep Imaging System with manual ?? evaluation ? Last Menstrual Period: ? years ? Treatment History: ? Hysterectomy: S/P ? SPECIMEN ADEQUACY ? Satisfactory for Evaluation ? - assessment of transformation zone component not applicable ( e.g. atrophy, ? vaginal sample, hysterectomy) ? GENERAL CATEGORIZATION ? Negative for Intraepithelial Lesion or Malignancy ? INTERPRETATION ? Shift in madan present suggestive of bacterial vaginosis. ? Document reviewed and electronically signed by: ? Zaira Dmitry, CT(ASCP) ? Report Date: ??10/24/2010 12:45 ? End of Report ? [facility] 10/18/2010 10/22/2010 us Mary Ann Goodman MD PATHOLOGY ORDERABLES Fi nal Result Performing Organization Address City/State/[facility] Co de Phone Number [facility] [address] [place] [address] documented in this encounter Visit Diagnoses Not on filedocumented in this encounter Care Teams Forming Process Line Worker Relationship Specialty Start Date End Date Mary Ann Goodman MD PCP - General 08/02/08 03/21/18 documented as of this encounter
--- OUTSIDE RECORDS SUMMARY | 2024-03-17 12:20 | XMS_ITS | Encounter Summary ---
Author Organization [facility] Address [address] [place] [address] Care Team Providers Care Speed Runner Name Role Phone Jennifer Ordoñez MAY Primary Care Provider + Encounter Details Date Type Department Care Team (Late st Contact Info) Description 03/22/2018 Abstract [facility] Nephrology - [place] [address] [place] [address] [phone] Jose L Whitley MD 1 [facility], Level 2 [place] [address] Social History Tobacco Use Types [...] Description 04/07/2024 9:00 EST Office Visit [facility] Endocrinology - [facility] [address] [place], [place] [phone] Vnicenzo Rawls MD 62 [facility] [address] [place] [address] 08/22/2024 15:30 EDT Telemedicine [facility] Nephrology - [facility] [address] [place], [place] [phone] Jose L Whitley MD 1 [facility], [address] [place] [phone] documented as of this encounter Procedures Procedure Name Priority Date/Time Associated Diagnosis Comments COMPLETE BLOOD COUNT AND DIFFERENTIAL Routine 03/21/2018 LIPASE Routine 03/21/2018 COMPREHENSIVE METABOLIC PANEL (CMP) Routine 03/21/2018 LIPID PROFILE (INCLUDES CHOLESTEROL, TRIGLYCERIDES, HDL, LDL) Routine 01/27/2018 COMPREHENSIVE METABOLIC PANEL (CMP) Routine 01/27/2018 documented in this encounter Results * COMPLETE BLOOD COUNT AND DIFFERENTIAL (03/21/2018) WBC, External 8.81 [facility] RBC, External 3.51 [facility] Hemoglobin, External 11.6 [facility] HCT, External 34 [facility] MCV, External 97 [facility] MCH, External 33.0 [facility] MCHC, External 34.2 [facility] PLT, External 278 [facility] RDW-CV, External [facility] Neutrophils, External 80.1 [facility] Lymphocytes, External 13.4 [facility] Monocytes, External 5.3 [facility] Eosinophils, External 0.8 [facility] Basophils, External 0.2 [facility] ABS Neutrophils, External 7.1 [facility] ABS Lymphs, External 1.2 [facility] ABS Monocytes, External 0.5 [facility] ABS Eosinophils, External 0.1 [facility] ABS Basophils, External 0.0 [facility] Blood specimen (specimen) 03/21/2018 Historical Provider PACKAGES & DNA PROBE MANUEL GREER Final Result [facility] * COMPREHENSIVE METABOLIC PANEL (CMP) (03/21/2018) GFR, Calculated, External 36 [facility] Glucose, Serum, External 104 [facility] Albumin, External 3.2 [facility] Total Alkaline Phosphatase, External 159 [facility] ALT, External 17 [facility] AST, External 22 [facility] BUN, External 20 [facility] Calculated Calcium, External [facility] Calcium, External 9.0 [facility] Chloride, External 95 [facility] CO2, External 33 [facility] Creatinine, External 1.47 [facility] Fasting?, External [facility] Potassium, External 3.1 [facility] Sodium, External 134 [facility] Total Protein, External 7.0 [facility] Bilirubin, Total, External 0.2 [facility] Blood specimen (specimen) 03/21/2018 Historical Provider CHEMISTRY & BLOOD GAS ORD ERABLES Final Result [facility] * LIPASE (03/21/2018) Lipase, External 256 [facility] Blood specimen (specimen) 03/21/2018 Historical Provider CHEMISTRY & BLOOD GAS ORD ERABLES Final Result [facility] * COMPREHENSIVE METABOLIC PANEL (CMP) (01/27/2018) GFR, Calculated, External 28.06 [facility] Glucose, Serum, External [facility] Albumin, External 3.6 [facility] Total Alkaline Phosphatase, External [facility] ALT, External 37 [facility] AST, External 35 [facility] BUN, External 43 [facility] Calculated Calcium, External [facility] Calcium, External 9.2 [facility] Chloride, External 100 [facility] CO2, External 31.2 [facility] Creatinine, External 1.83 [facility] Fasting?, External [facility] Potassium, External 3.1 [facility] Sodium, External 141 [facility] Total Protein, External [facility] Bilirubin, Total, External 0.3 [facility] Blood specimen (specimen) 01/27/2018 Historical Provider CHEMISTRY & BLOOD GAS ORD ERABLES Final Result [facility] * LIPID PROFILE (INCLUDES CHOLESTEROL, TRIGLYCERIDES, HDL, LDL) (01/27/2018) Cholesterol, External 187 [facility] Triglycerides, External 243 [facility] HDL, External 58 [facility] LDL, External 89 [facility] Chol/HDL Ratio, External [facility] Fasting?, External [facility] Blood specimen (specimen) 01/27/2018 Historical Provider CHEMISTRY & BLOOD GAS ORD ERABLES Final Result [facility] documented in this encounter Visit Diagnoses Not on filedocumented in this encounter Care Teams Speed Runner Relationship Specialty Start Date End Date Jennifer Ordoñez, TECHNICAL MAINTENANCE TECHNICIAN [address] [place] [place] [phone] PCP - General 03/22/18 07/06/22 documented as of this encounter
--- OUTSIDE RECORDS SUMMARY | 2024-03-17 12:20 | XMS_ITS | Encounter Summary ---
Author Organization [facility] Address [address] [place] [address] Care Team Providers Care Flower Grader Name Role Phone Jennifer Ordoñez MAY Primary Care Provider + Encounter Details Date Type Department Care Team (Late st Contact Info) Description 03/24/2018 Abstract [facility] Nephrology - [place] [address] [place] [phone] Jose L Whitley MD 1 [facility], [address] [place] [address] Social History Tobacco Use Types [...] Description 04/07/2024 9:00 EST Office Visit [facility] Endocrinology - [facility] [address] [place], [place] [phone] Vincenzo Rawls MD 62 [facility] [address] [place] [address] 08/22/2024 15:30 EDT Telemedicine [facility] Nephrology - [facility] [address] [place], [place] [phone] Jose L Whitley MD 1 [facility], [address] [place] [phone] documented as of this encounter Procedures Procedure Name Priority Date/Time Associated Diagnosis Comments COMPLETE BLOOD COUNT AND DIFFERENTIAL Routine 03/19/2018 14:40 EST BASIC METABOLIC PANEL (BMP) Routine 03/19/2018 14:40 EST documented in this encounter Results * COMPLETE BLOOD COUNT AND DIFFERENTIAL (03/19/2018 14:40 EST) WBC, External 5.49 [facility] RBC, External 3.57 [facility] Hemoglobin, External 11.8 [facility] HCT, External 35.9 [facility] MCV, External 100.6 [facility] MCH, External 33.1 [facility] MCHC, External 32.9 [facility] PLT, External 274 [facility] RDW-CV, External 13.1 [facility] Neutrophils, External 52.7 [facility] Lymphocytes, External 33.3 [facility] Monocytes, External 9.8 [facility] Eosinophils, External 3.8 [facility] Basophils, External 0.2 [facility] ABS Neutrophils, External 2.89 [facility] ABS Lymphs, External 1.83 [facility] ABS Monocytes, External 0.54 [facility] ABS Eosinophils, External 0.21 [facility] ABS Basophils, External 0.01 [facility] Blood specimen (specimen) 03/19/2018 14:40 EST Historical Provider PACKAGES & DNA PROBE ORDE ZOEY Final Result Performing Organization Address City/[facility] Co de Phone Number [facility] * BASIC METABOLIC PANEL (BMP) (03/19/2018 14:40 EST) GFR, Calculated, External 16.50 [facility] Glucose, Serum, External 93 [facility] Calculated Calcium, External [facility] BUN, External 39 [facility] Calcium, External 8.8 [facility] Chloride, External 98 [facility] CO2, External 33.8 [facility] Creatinine, External 2.9 [facility] Fasting?, External [facility] Potassium, External 3.9 [facility] Sodium, External 139 [facility] Blood specimen (specimen) 03/19/2018 14:40 EST Historical Provider CHEMISTRY & BLOOD GAS ORD ERABLES Final Result Performing Organization Address City/[facility]/ZIP Co de Phone Number [facility] documented in this encounter Visit Diagnoses Not on filedocumented in this encounter Care Teams Flower Grader Relationship Specialty Start Date End Date Jennifer Ordoñez, MARKETING COMMUNICATIONS ASSISTANT [address] [place] [phone] PCP - General 03/22/18 07/06/22 documented as of this encounter
--- OUTSIDE RECORDS SUMMARY | 2024-03-17 12:20 | XMS_ITS | Encounter Summary ---
Author Organization [facility] Address [address] [place] [address] Care Team Providers Care Paratransit Operator Name Role Phone Mary Ann Goodman MD Primary Care Provider Unavailable Reason for Visit * Reason Comments Follow-up seeing after MRI 9:3 0. Crohns/ Fistula. Encounter Details Date Type Department Care Team (Late st Contact Info) Description 11/25/2017 11:30 EDT Office Visit [facility] General Surgery - [address] [address] Ryan Ruiz MD 111 [facility], [address] [place] [address] Crohn's disease with complication, unspecified gastrointestinal tract [...] Progress Notes * Ryan Ruiz MD - 11/25/2017 1130 EDT Subjective: Patient ID: Zaira Collins is an 62 y.o. female. Chief Complaint Patient presents with ??? Follow-up seeing after MRI 9:30. Crohns/ Fistula. HPI Cynthia is here to her view her MRI and discuss next steps. I have had a chance to review her MRI with our radiologist. There is a fluid collection at the top of the anal stump and it does demonstrate a small sinus tract that is coursing towards the posteriorwall the vagina. There is no mass associated with the collection and the small bowel is quite a bitcephalad. She continues to have daily drainage from the anus requiring up to 2-3 pad changes a day. There is some bloody in the drainage periodically. Overall her symptoms are stable compared to my prior evaluations. There is no vaginal drainage or discharge. Patient Active Problem List Diagnosis ??? Chronic [...] Known Allergies ROS - See HPI Objective: There were no vitals taken for this visit. 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 Her symptoms are stable. I spent 30 minutes of face to face time with she and her sister. She has two options: continue as she is. The chronic stable nature of her symptoms as well as her MRI indicate that things will likely stay about the same. This is safe and more of a QOL issue. Alternatively she could under perineal removal of the anus, debridement of the cavity, and primary closure. We discussed pain, injury to the back of the vagina, and difficulty healing the perineal wound. Plan: She is very relieved to know the MRI demonstrates a straightforward fluid collection and nothing further. She wishes to give things more thought before deciding on surgery; it is a stressful time forher personally. She will see me in 2-3 months and she will call sooner if she develops new symptoms, questions, or wishes to have surgery. (K50.159) Crohn's disease with complication, unspecified gastrointestinal tract location (HCC-CMS) (primary encounter diagnosis) Ryan Ruiz MD No orders of the defined types were placed in this encounter. documented in this encounter Plan of Treatment Upcoming Encounters Date Type Department Care Team (Late st Contact Info) Description 04/07/2024 9:00 EST Office Visit [facility] Endocrinology - [address] [phone] Vincenzo Rawls MD [address] [place] [address] [address] [place] [address] 08/22/2024 15:30 EDT Telemedicine [facility] Nephrology - [facility] 1 [place], [place] [address] Jose L Whitley MD 1 [facility], [address] [place] [phone] documented as of this encounter Visit Diagnoses Diagnosis Crohn's disease with complication, unspecified gastrointestinal tract location (HCC-CMS)- Primary documented in this encounter Care Teams Paratransit Operator Relationship Specialty Start Date End Date Mary Ann Goodman MD PCP - General 08/02/08 03/21/18 documented as of this encounter
--- OUTSIDE RECORDS SUMMARY | 2024-03-17 12:20 | XMS_ITS | Encounter Summary ---
Author Organization [facility] Address [address] [place] [address] Care Team Providers Care Optometric Technician Name Role Phone Mary Ann Goodman MD Primary Care Provider Unavailable Reason for Visit * Reason Comments Nephrolithiasis Encounter Details Date Type Department Care Team (Late st Contact Info) Description 10/19/2013 11:20 EDT Office Visit [facility] Nephrology [address] [address] Giovanni Anthony MD [address] [place] [phone] Nephrocalcinosis (Primary Dx); Nephrolithiasis; Acidosis; Hypokalemia Social History Tobacco Use Types Packs/Day Years [...] Sign Reading Time Taken Comments Blood Pressure 111/72 10/19/2013 1135 EDT Pulse 98 10/19/2013 1135 EDT Temperature - - Respiratory Rate - - Oxygen Saturation - - Inhaled Oxygen Concentration - - Weight 44.9 kg (98 lb 15.8 oz) 10/19/2013 1135 E DT Height - - Body Mass Index 19.33 09/28/2013 1001 EDT documented in this encounter Patient Instructions * Patient Instructions* Giovanni Anthony MD - 10/19/2013 11:35 EDT i will call you with results documented in this encounter Progress Notes * Giovanni Anthony MD - 10/19/2013 1135 EDT [facility] DATE OF SERVICE: 10/19/2013 NAME: Zaira Collins : 1955 Patient Active Problem List Diagnosis ??? Chronic kidney disease, stage III (moderate) ??? Tachycardia rx with b-charu, asymptomatic ??? Hematuria cystoscopy, renal CT, cytology unremarkable ??? Diarrhea with dehydration leading to recurrent episodes of ERNESTINA ??? 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 Nephrolithiasis unknown type, required procedrues for removal; no recent stones ??? Crohn's disease s/p colectomy and small bowel resections with ileostomy ??? Fibromyalgia INTERVAL HISTORY: Zaira Collins completed 24hr litholink on usual diet with usual bowel pattern,but i don't have results yet. Serum creatinine has varied between 1.2 and 1.6 since last visit. Current Outpatient Prescriptions Medication Sig ??? BIOTIN [...] Tabs by mouth 4 times daily. No Known Allergies PHYSICAL EXAMINATION: BP 111/72 Pulse 98 Wt 44.9 kg (98 lb 15.8 oz) BMI 19.33 kg/m2 Constitutional: No distress Mouth: No ulcers Cardiovascular: Edema absent Skin: No vasculitic rash Gastrointestinal: Abdomen soft, non-tender Eyes: Sclerae anicteric Respiratory: Clear to auscultation bilaterally Neuro: No asterixis STUDIES: 09/30/13 Na K CO2 BUN Cr Alb Ca PO4 PTH HGB 142 4.6 23 18 1.3 3.9 9.3 4.1 143 - Magnesium 1.9 CT abdomen/pelvis 10/27 - tiny right kidney stone IMPRESSION: 1. Hypomagnesemia - acceptable on current reduced dose of magnesium oxide 2. Acidosis/hypokalemia - adequately treated on current doses of buffer and potassium chloride 3. Nephrolithiasis - minimal stone burden, awaiting 24hr urine results. Hyperparathyroidism secondary to Chronic Kidney Disease - PTH is elevated, but with normal calcium,this is likely not due to primary disease. Nephrocalcinosis - awaiting results of 24hr urine to assess best treatment options. PLAN: 1. Obtain and review 24hr urine litholink results 2. Return to clinic in 6 months or different baed on above results Giovanni Anthony M.D. 12/23/2013 ADDENDUM: litholink 10/05/13: 780 ml, ca 10, oxalate 19, citrate 94, pH 7.2, NH4 3, Cl <2, cr 867 Constellation of findings most consistent with adequately treated distal renal tubular acidosis andpoor absorbption. Encouraged to increase fluid intake or decrease ostomy output to increase urinaryflow. No medication changes unless having more kidney stones. documented in this encounter Plan of Treatment Upcoming Encounters Date Type Department Care Team (Late st Contact Info) Description 04/07/2024 9:00 EST Office Visit [facility] Endocrinology - [facility] [address] [place] [address] Vincenzo Rawls MD 62 [facility] [address] [place] [address] 08/22/2024 15:30 EDT Telemedicine [facility] Nephrology - [facility] 1 [place], [place] [phone] Jose L Whitley MD 1 [facility], Level [address] [place] [phone] documented as of this encounter Visit Diagnoses Diagnosis Nephrocalcinosis- Primary Other disorder of calcium metabolism Nephrolithiasis Calculus of kidney Acidosis Hypokalemia Hypopotassemia documented in this encounter Care Teams Optometric Technician Relationship Specialty Start Date End Date Mary Ann Goodman MD PCP - General 08/02/08 03/21/18 documented as of this encounter
--- OUTSIDE RECORDS SUMMARY | 2024-03-17 12:20 | XMS_ITS | Encounter Summary ---
Author Organization [facility] Address [address] [place] [address] Care Team Providers Care Care Assistant Name Role Phone Mary Ann Goodman MD Primary Care Provider Unavailable Encounter Details Date Type Department Care Team (Late st Contact Info) Description 06/07/2008 Before PRISM Converted Visit ([place]) [facility] - Maple conversion [address] [place] [address] Cheikh Luevano MD 111 [facility], [address] [place] [address] Social History Tobacco Use Types Packs/Day Years Used Date Smoking Tobacco: Never Assessed Comments Unknown Sex and Gender Information Value Date Recorded Sex Assigned at Not on file Legal Sex Female 17:52 EST Gender Identity Female 10/11/2020 8:15 EDT Sexual Orientation Not on file documented as of this encounter Progress Notes * Cheikh Luevano MD - 04/18/2009 0312 EST DIVISION OF UROLOGY PROGRESS/FOLLOWUP NOTE - 06/07/2008 Mary Ann Goodman MD [address] [place] [address] Dear Mary Ann: I saw your patient in followup. As you know, her workup for hematuria has been completed with urinary cytology that was negative as well as a cystoscopy on her last visit which demonstrated no evidence of pathology. Her urinary culture and sensitivity is negative. Since undergoing a course of empiric Macrobid, however, she has not had any recent gross hematuria. Her creatinine is within normal limits at 0.9. At the present time her Crohnis without any active issues. Given her history of renal tubular acidosis, I suddenly do feel it would be appropriate for her to consult with a multimedia services manager. Should she have any difficulties otherwise, I suggested that she follow up with Urology on ap.r.n. basis. We didalso discuss smoking cessation as this certainly would help given her other comorbidities. Should you have any questions or concerns, please do not hesitate to contact me. Thanks, as always, for involving me in her care. Yours sincerely, Signed by Cheikh Luevano MD 06/27/2008 12:49 Cheikh Luevano MD - Cheikh Luevano MD - MOON Job ID: [id number] Doc ID: [id number] cc: Mary Ann Goodman MD documented in this encounter Plan of Treatment Upcoming Encounters Date Type Department Care Team (Late st Contact Info) Description 04/07/2024 9:00 EST Office Visit [facility] Endocrinology - [address] [phone] Vincenzo Rawls MD [address] [place] [address] [address] [place] [address] 08/22/2024 15:30 EDT Telemedicine [facility] Nephrology - [address] [phone] Jose L Whitley MD [address] [place] [address], [address] [place] [phone] documented as of this encounter Visit Diagnoses Not on filedocumented in this encounter Care Teams Care Assistant Relationship Specialty Start Date End Date Mary Ann Goodman MD PCP - General 08/02/08 03/21/18 documented as of this encounter
--- OUTSIDE RECORDS SUMMARY | 2024-03-17 12:20 | XMS_ITS | Encounter Summary ---
Author Organization [facility] Address [address] [place] [address] Care Team Providers Care Customer Service Agent Name Role Phone Mary Ann Goodman MD Primary Care Provider Unavailable Encounter Details Date Type Department Care Team (Late st Contact Info) Description 09/28/2013 Phlebotomy Only [address] [address] Inspector Tool, Outpatient Crohn's disease ([facility]) ([facility]) Social History Tobacco Use Types Packs/Day Years [...] Info) Description 04/07/2024 9:00 EST Office Visit [facility] Endocrinology - [facility] [address] [place] [address] Vincenzo Rawls MD 62 [facility] [address] [place] [address] 08/22/2024 15:30 EDT Telemedicine [facility] Nephrology - [address] [place] [address] Jose L Whitley MD 1 [facility], Level [address] [place] [address] documented as of this encounter Procedures Procedure Name Priority Date/Time Associated Diagnosis Comments DIFFERENTIAL Routine 09/28/2013 10:52 EDT Crohn's disease (CMS-HCC) (HCC-CMS) COMPLETE BLOOD COUNT Routine 09/28/2013 10:52 EDT Crohn's disease (CMS-HCC) (HCC-CMS) COMPLETE BLOOD COUNT AND DIFFERENTIAL Routine 09/28/2013 10:52 EDT Crohn's disease (CMS-HCC) (HCC-CMS) C REACTIVE PROTEIN Routine 09/28/2013 10 :52 EDT Crohn's disease (CMS-HCC) (HCC-CMS) CREATININE Routine 09/28/2013 10:52 EDT Crohn's disease (CMS-HCC) (HCC-CMS) documented in this encounter Results * DIFFERENTIAL (09/28/2013 10:52 EDT) % Neutrophils 54.6 45.5 - 79.7 % [facility] % Lymphocytes 34.7 15.0 - 46.8 % [facility] % Monocytes 8.4 1.8 - 12.0 % [facility] % Eosinophils 1.8 0.6 - 6.9 % [facility] % Basophils 0.5 0.2 - 1.4 % [facility] ABS Neutrophils 3.29 2.20 - 8.85 K/cmm [facility] ABS Lymphs 2.09 1.09 - 3.30 K/cmm [facility] ABS Monocytes 0.51 0.1 - 0.8 K/cmm [facility] ABS Eosinophils 0.11 0.03 - 0.61 K/cmm [facility] ABS Basophils 0.03 0.01 - 0.11 K/cmm [facility] Type of Diff: Automated [facility] 09/28/2013 10:5 2 EDT 09/28/2013 11:10 EDT Brent Horton MD HEMATOLOGY & PF4 ORDERABLE S Final Result Performing Organization Address [facility] de Phone Number [facility] [address] [place] [address] * (ABNORMAL) HEMAGRAM (09/28/2013 10:52 EDT) WBC 6.03 4.0 - 12.4 K/cmm [facility] RBC 3.99 3.86 - 5.04 M/cmm [facility] Hemoglobin 13.6 11.6 - 15.2 gm/dl [facility] HCT 38.8 34.9 - 44.4 % [facility] MCV 97 81 - 98 fl [facility] MCH 34.1(H) 26.7 - 33.3 pg [facility] MCHC 35.1 32.1 - 35.9 gm/dl [facility] PLT 240 141 - 320 K/cmm [facility] RDW-CV 12.9 11.7 - 14.6 % [facility] 09/28/2013 10:5 2 EDT 09/28/2013 11:10 EDT Brent Horton MD HEMATOLOGY & PF4 ORDERABLE S Final Result Performing Organization Address City/[facility] Co de Phone Number [facility] [address] [place] [address] * (ABNORMAL) C-REACTIVE PROTEIN (09/28/2013 10:52 EDT) C-Reactive Protein 1.0(H) <1.0 mg/dl [facility] Blood specimen (specimen) 09/28/2013 10:52 EDT 09/28/2013 11:10 EDT Brent Horton MD CHEMISTRY & BLOOD GAS MANUEL [facility] Final Result Performing Organization Address [facility] Co de Phone Number [facility] [address] [place] [address] * (ABNORMAL) CREATININE (09/28/2013 10:52 EDT) Creatinine 1.20(H) 0.52 - 1.04 mg/dl [facility] GFR, Calculated 46(L) >60 ml/min/1.7 3m2 [facility] Blood specimen (specimen) 09/28/2013 10:52 EDT 09/28/2013 11:10 EDT Brent Horton MD CHEMISTRY & BLOOD GAS MANUEL GREER Final Result Performing Organization Address [facility] Co de Phone Number [facility] [address] [place] [address] documented in this encounter Visit Diagnoses Diagnosis Crohn's disease ([facility]) Regional enteritis of unspecified site documented in this encounter Care Teams Customer Service Agent Relationship Specialty Start Date End Date Mary Ann Goodman MD PCP - General 08/02/08 03/21/18 documented as of this encounter
--- OUTSIDE RECORDS SUMMARY | 2024-03-17 12:20 | XMS_ITS | Encounter Summary ---
Author Organization [facility] Address [address] [place] [address] Care Team Providers Care Ferris Wheel Operator Name Role Phone Jennifer Ordoñez MAY Primary Care Provider + Reason for Visit * Reason Comments Follow-up 2-3 mo f/u. crohns f istula. Encounter Details Date Type Department Care Team (Late st Contact Info) Description 03/31/2018 9:15 EST Office Visit [facility] General Surgery - [facility] [address] [place], [place] [phone] Ryan Ruiz MD 111 [facility], [address] [place] [address] Crohn's disease with complication, unspecified [...] Progress Notes * Ryan Ruiz MD - 03/31/2018 0915 EST Subjective: Patient ID: Zaira Collins is [...] stones ??? 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 Tachycardia rx with [...] Physical Exam Assessment: Plan: No diagnosis found. Ryan Ruiz MD No orders of the defined types were placed in this encounter. * Ryan Ruiz MD - 03/31/2018 0915 EST Subjective: Patient ID: Zaira Collins is an 62 y.o. female. Chief Complaint Patient presents with ??? 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 HPI Zaira is here in follow-up. She underwent proctocolectomy in 2001 for Crohn's. Her anus was left in place. Over the years she has had increasing problems with drainage from the out of circuit anus and imaging was done last year which confirmed there to be a fluid collection at the top of the staple line but no obvious fistula to the small bowel or to the vagina. When I saw her in November she was contemplating surgery but not quite ready to make the decision. She returns today and continues to report increasing amounts of drainage requiring a larger size pad to be used 2 times a day. She also intermittently gets large gushes of fluid from the anus. She continues to deny any drainage from the vagina, fevers or chills. Patient Active Problem List [...] stones ??? 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 Tachycardia rx with [...] abdominal pain. Negative for blood in stool. Musculoskeletal: Positive for back pain. Endo/Heme/Allergies: Does not bruise/bleed easily. - See [...] and breath sounds normal. No respiratory distress. Coarse in the bases Abdominal: Soft. She exhibits no distension and no mass. There is no tenderness. Ileostomy in place Musculoskeletal: Normal range of motion. She exhibits no edema. Neurological: She is alert and oriented to person, place, and time. Skin: Skin is warm and dry. No rash noted. No pallor. Psychiatric: Her behavior is normal. Judgment normal. Assessment: Zaira is more symptomatic from her out of circuit anus and fluid collection. Her personal life is in better shape and she is ready to undergo surgery. I explained for her a perineal approach to removing the residual anus and very distal rectum. We talked about injury to the small bowel, vagina, bleeding, infection, and challenges with healing the perineal wound. Her questions were answered and written informed consent was obtained. Plan: We will plan on doing this in the coming weeks. She had labs recently at [facility] which are essentially normal with a slight elevation in her creatinine due to her chronic kidney disease. We do not need to repeat those today. I encouraged her to stop or cut back on smoking between now and surgery. No diagnosis found. Ryan Ruiz MD No orders of the defined types were placed in this encounter. documented in this encounter Plan of Treatment Upcoming Encounters Date Type Department Care Team (Late st Contact Info) Description 04/07/2024 9:00 EST Office Visit [facility] Endocrinology - [facility] [address] [place], [place] [phone] Vincenzo Rawls MD 62 [facility] [address] [place] [address] 08/22/2024 15:30 EDT Telemedicine [facility] Nephrology - [facility] [address] [place], [place] [phone] Jose L Whitley MD 1 [facility], Level [address] [place] [phone] documented as of this encounter Visit Diagnoses Diagnosis Crohn's disease with complication, unspecified gastrointestinal tract location ([facility])- Primary documented in this encounter Care Teams Ferris Wheel Operator Relationship Specialty Start Date End Date Jennifer Ordoñez, MAY [address] [place] [phone] PCP - General 03/22/18 07/06/22 documented as of this encounter
--- OUTSIDE RECORDS SUMMARY | 2024-03-17 12:20 | XMS_ITS | Encounter Summary ---
Author Organization [facility] Address [address] [place] [address] Care Team Providers Care Draw Bench Operator Helper Name Role Phone Mary Ann Goodman MD Primary Care Provider Unavailable Encounter Details Date Type Department Care Team (Late st Contact Info) Description 10/04/2013 Orders Only [facility] Gastroenterology - [facility] [address] [place], [place] [phone] Brent Horton MD 111 [facility], [facility] [address] [place] [address] Social History Tobacco Use Types [...] Info) Description 04/07/2024 9:00 EST Office Visit [facility] Endocrinology - [facility] [address] [place] [address] Vincenzo Rawls MD [address] [address] 08/22/2024 15:30 EDT Telemedicine [facility] Nephrology - [address] [phone] Jose L Whitley MD 1 [facility], Level [address] [place] [phone] documented as of this encounter Visit Diagnoses Not on filedocumented in this encounter Care Teams Draw Bench Operator Helper Relationship Specialty Start Date End Date Mary Ann Goodman MD PCP - General 08/02/08 03/21/18 documented as of this encounter
--- OUTSIDE RECORDS SUMMARY | 2024-03-17 12:20 | XMS_ITS | Encounter Summary ---
Author Organization [facility] Address [address] [place] [address] Care Team Providers Care Coordinator Of Library Services Name Role Phone Mary Ann Goodman MD Primary Care Provider Unavailable Encounter Details Date Type Department Care Team (Late st Contact Info) Description 02/24/2014 13:00 EST - 02/24/2014 23:59 EST Hospital Encounter [facility] Endoscopy - [facility] [address] [place] [address] Brent Horton MD [address] [place] [address], [address] [place] [address] Discharge Disposition: Home or Self [...] on file documented as of this encounter Medications at Time of Discharge [...] Code Departure Means Destination Home or Self Long-Term documented in this encounter Plan of Treatment Upcoming Encounters Date Type Department Care Team (Late st Contact Info) Description 04/07/2024 9:00 EST Office Visit [facility] Endocrinology - [facility] [address] [place], [place] [phone] Vincenzo Rawls MD 62 [facility] [address] [place] [address] 08/22/2024 15:30 EDT Telemedicine [facility] Nephrology - [facility] 1 [place], [place] [address] Jose L Whitley MD [address] [place] [address] Rehab, Level [address] [place] [phone] documented as of this encounter Visit Diagnoses Not on filedocumented in this encounter Care Teams Coordinator Of Library Services Relationship Specialty Start Date End Date Mary Ann Goodman MD PCP - General 08/02/08 03/21/18 documented as of this encounter
--- OUTSIDE RECORDS SUMMARY | 2024-03-17 12:20 | XMS_ITS | Encounter Summary ---
Author Organization [facility] Address [address] [place] [address] Care Team Providers Care Records Management Associate Name Role Phone Mary Ann Goodman MD Primary Care Provider Unavailable Reason for Visit * Reason Comments Crohn's Disease follow up Encounter Details Date Type Department Care Team (Latest Contact Info) Description 05/02/2015 11:00 EST Office Visit [facility] Gastroenterology - [address] [address] Brent Horton MD 111 [facility], [facility] 5 [place] [address] Crohn's disease with complication, unspecified gastrointestinal tract location ([facility]) (Primary Dx) Social History Tobacco Use Types [...] Reading Time Taken Comments Blood Pressure 108/72 05/02/2015 1056 EST Pulse 72 05/02/2015 1056 EST Temperature - - Respiratory Rate - - Oxygen Saturation - - Inhaled Oxygen Concentration - - Weight 43.5 kg (96 lb) 05/02/2015 1056 EST Height 149.9 cm (4' 11) 05/02/2015 1056 EST Body Mass Index 19.39 05/02/2015 1056 EST documented in this encounter Functional Status * Because of a physical, mental, or emotional condition, does this person have difficulty doing errands alone such as visiting a doctor's office or shopping? Answer Date of Assessment Author No 05/02/2015 10:59 EST documented as of this encounter Mental Status * Because of a physical, mental, or emotional condition, does this person have serious difficulty concentrating, remembering, or making decisions? Answer Entry Date Author No 05/02/2015 10:59 EST documented in this encounter Progress Notes * Brent Horton MD - 05/02/2015 1114 EST Subjective: Patient ID: Zaira Collins is an 59 y.o. female. Chief Complaint Patient presents with ??? Crohn's Disease follow up HPI Comments: Ms. Collins returns to the GI office. She carries a diagnosis of Crohn's disease, made at outside institutions. She has had a total proctocolectomy (staged) and has and ileostomy. She had ileoscopy with me in February showing normal neoterminal ileum with no evidence of active Crohn's disease. She has seen Dr. Ruiz for her chronic, non-healing perineal wound. She has continued to have intermittent high ostomy output. Has not been taking imodium on a regular basis. Has some chronic nausea as well - controls this with compazine. Has a generally poor appetite. Still smoking cigarettes. Was seen in the ER at [facility] for severe abdominal pain. They told her her gallbladder may not be working. Crohn's Disease Patient Active Problem List Diagnosis ??? Chronic [...] stones ??? Renal tubular acidosis dx at [facility], after bowel surgery ??? 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 Diarrhea with dehydration leading to recurrent episodes of ERNESTINA ??? Hematuria cystoscopy, renal CT, cytology unremarkable ??? Tachycardia rx with b-charu, asymptomatic ??? Chronic kidney disease, stage III (moderate) ??? Anomaly, cardiac tachycardia ??? Mental disorder Past Surgical History Procedure Laterality Date ??? Hysterectomy ??? Rectal surgery ??? Total colectomy ??? Small intestine surgery ??? Colon surgery Family History Problem Relation Age of Onset ??? Stomach Cancer Neg Hx ??? Rectal Cancer Neg Hx ??? Pancreatic Cancer Neg Hx ??? Esophageal Cancer Neg Hx ??? Colon Cancer Neg Hx Social History Substance Use Topics ??? Smoking [...] mg by mouth 2 times daily. ??? magnesium oxide (MAG-OX) [...] Allergies ROS - See HPI Objective: BP 108/72 mmHg Pulse 72 Ht 149.9 cm (59) Wt 43.545 kg (96 lb) BMI 19.38 kg/m2 Physical Exam Alert and oriented, no distress Sclera anicteric, mucous membranes moist Heart regular rate and rhythm Lungs clear to auscultation bilaterally Abdomen soft and non-tender, no masses, hepatomegally Extremities without rash or edema Assessment: IBD -- surgery over 30 years ago. I am not sure if she truly had Crohn's or UC, but she has no evidence of IBD on recent ileoscopy, so I suspect she is essentially cured at this point. She should take imodium on a regular basis to control her ostomy output. I would recommend trying Zofran to helpwith nausea, rather than compazine, and zofran can slow GI motility some through its action on 5-HTreceptors. Also encouraged her to quit smoking. If she has issues with her ostomy, she can be seen by our ostomy nurse here, or someone similar closer to home if that is available to her. I see no evidence of gallbladder issues -- would not recommend surgery for her unless if were an acute and urgent issue, given her multiple previous surgeries and current high ostomy output. Plan: -as above, no specific follow-up needed here. Brent Horton MD documented in this encounter Plan of Treatment Upcoming Encounters Date Type Department Care Team (Late st Contact Info) Description 04/07/2024 9:00 EST Office Visit [facility] Endocrinology - [address] [address] Vincenzo Rawls MD 62 [facility] [address] [place] [address] 08/22/2024 15:30 EDT Telemedicine [facility] Nephrology - [address] [address] Jose L Whitley MD 1 [facility], Level [address] [place] [phone] documented as of this encounter Visit Diagnoses Diagnosis Crohn's disease with complication, unspecified gastrointestinal tract location (HCC-CMS)- Primary documented in this encounter Discontinued Medications Medication Sig Discontinue Reason Start Date End Da te prochlorperazine (COMPAZINE) 10 mg tablet Take 10 mg by mouth 3 times daily. Patient Stopped Taking 05/02/2015 Estradiol (ESTRASORB) 2.5 mg/g (1.74 g) [place] onto the skin every 7 days . 05/02/2015 Black Cohosh 540 mg Cap Take by mouth. Patient Stopped Taking 0 05/02/2015 documented as of this encounter Historical Medications * This list may reflect changes made after this encounter. DULoxetine (CYMBALTA) 30 mg delayed release capsule Take 1 Capsule by mouth daily. oxyCODONE-acetami nophen (PERCOCET) 5-325 mg per tablet Take 1 Tab by mouth 3 times daily as needed for Pain. 04/16/2018 Ginkgo Biloba 40 mg tablet Take 60 mg by mouth daily. 10/26/2018 added in this encounter Care Teams Records Management Associate Relationship Specialty Start Date End Date Mary Ann Goodman MD PCP - General 08/02/08 03/21/18 documented as of this encounter
--- OUTSIDE RECORDS SUMMARY | 2024-03-17 12:20 | XMS_ITS | Encounter Summary ---
Author Organization [facility] Address [address] [place] [address] Care Team Providers Care Knife Machine Operator Name Role Phone Mary Ann Goodman MD Primary Care Provider Unavailable Encounter Details Date Type Department Care Team (Late st Contact Info) Description 10/14/2013 Orders Only [facility] Gastroenterology - [facility] [address] [place], [place] [phone] Brent Horton MD 111 [facility], [facility] 5 [place] [address] Social History Tobacco Use Types [...] Office Visit [facility] Endocrinology - [facility] [address] [place] [address] Vincenzo Rawls MD [address] [phone] 08/22/2024 15:30 EDT Telemedicine [facility] Nephrology - [address] [address] Jose L Whitley MD 1 [facility], Level [address] [place] [phone] documented as of this encounter Visit Diagnoses Not on filedocumented in this encounter Care Teams Knife Machine Operator Relationship Specialty Start Date End Date Mary Ann Goodman MD PCP - General 08/02/08 03/21/18 documented as of this encounter
--- OUTSIDE RECORDS SUMMARY | 2024-03-17 12:20 | XMS_ITS | Encounter Summary ---
Author Organization [facility] Address [address] [place] [address] Care Team Providers Care Yarn Packer Name Role Phone Mary Ann Goodman MD Primary Care Provider Unavailable Encounter Details Date Type Department Care Team (Latest Contact Info) Description 01/16/2016 11:13 EDT - 01/16/2016 22:40 EDT Hospital Encounter [facility] [place] - [address] [address] Shay Courtney MD Discharge Disposition: Home or Self Care Social [...] Sign Reading Time Taken Comments Blood Pressure 131/88 01/16/2016 1403 EDT Pulse - - Temperature 35.5 ??C (95.9 ??F) 01/16/2016 1325 EDT Respiratory Rate 11 01/16/2016 1403 EDT Oxygen Saturation 99% 01/16/2016 1403 EDT Inhaled Oxygen Concentration - - Weight 37.2 kg (82 lb) 01/16/2016 1144 EDT Height 149.9 cm (4' 11) 01/16/2016 1144 EDT Body Mass Index 16.56 01/16/2016 1144 EDT documented in this encounter Functional Status [...] documented in this encounter Discharge Diagnoses Diagnosis 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[ICD-10-CM] F17.210 Nicotine dependence, cigarettes, uncomplicated-F17.210[ICD-10-CM] D64.9 Anemia, unspecified-D64.9[ICD-10-CM] I12.9 Hypertensive chronic kidney disease with stage 1 through stage 4 chronic kidney disease, or unspecified chronic kidney disease-I12.9[ICD-10-CM] N18.3 Chronic kidney disease, stage 3 (moderate)-N18.3[ICD-10-CM] R00.0 Tachycardia, unspecified-R00.0[ICD-10-CM] R01.1 Cardiac murmur, unspecified-R01.1[ICD-10-CM] Z79.899 Other detention (current) drug therapy-Z79.899[ICD-10-CM] documented in this encounter [...] or Self Care documented in this encounter H&P Notes * Shay Courtney MD - 01/16/2016 1156 EDT Endoscopy Sedation for Procedure History & Physical Date: 01/16/2016 Time: 11:56 Location: 4 [facility] Planned Procedure: ERCP Chief Complaint/Indications for Procedure: Abnormal MRCP suggesting a filling defect in the distal CBD. History Previous Complication with Sedation and/or Anesthesia? No Allergies: No Known Allergies Current Medications: No current facility-administered medications for this encounter. Past Medical History: Past Medical History Diagnosis Date ??? Anemia ??? Anomaly, cardiac tachycardia ??? Chronic kidney disease, stage III (moderate) ??? Crohn's disease s/p colectomy and small bowel resections with ileostomy ??? Depression ??? Diarrhea with dehydration leading to recurrent episodes of ERNESTINA ??? Fibromyalgia ??? Heart murmur ??? Hematuria cystoscopy, renal CT, cytology unremarkable ??? Mental disorder ??? 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 Nephrolithiasis unknown type, required procedrues for removal; no recent stones ??? 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 Tachycardia rx with b-charu, asymptomatic Social History: Past Surgical History Procedure Laterality Date ??? Hysterectomy ??? Rectal surgery ??? Total colectomy ??? Small intestine surgery ??? Colon surgery Social History Substance Use Topics ??? Smoking status: Current Every Day Smoker Packs/day: 1.00 ??? Smokeless tobacco: Never Used ??? Alcohol use No Family History: Family History Problem Relation Age of Onset ??? Stomach Cancer Neg Hx ??? Rectal Cancer Neg Hx ??? Pancreatic Cancer Neg Hx ??? Esophageal Cancer Neg Hx ??? Colon Cancer Neg Hx Review of Systems as pertinent: Physical Exam Vital Signs: Visit Vitals ??? BP 111/74 ??? Temp 35.8 ??C (96.4 ??F) (Tympanic) ??? Resp 16 ??? Ht (!) 149.9 cm (59) ??? Wt (!) 37.2 kg (82 lb) ??? SpO2 99% ??? BMI 16.56 kg/m2 Heart Examination: Cardiac Regularity: Regular Respiratory Examination: Respiratory Pattern: Regular Breath Sounds Right: Clear Breath Sounds Left: Clear Abdominal Examination: Not clinically indicated Additional physical exam related to the proposed procedure, patient activity, disease state and treatment as pertinent: Assessment Previous complications with sedation or anesthesia?: No Airway Concerns: None Anesthesia Classification: ASA 2 Plan: Proceed with sedation for procedure Fasting Time: Time of last liquid intake: (sips) Date of Last Liquid Intake: 01/16/16 Time of last solid intake: 1530 Date of last solid intake: 12/14/15 Patient Appropriate Candidate for Planned Sedation?: Yes Shay Courtney MD 01/16/2016 11:56 documented in this encounter Miscellaneous Notes * Anesthesia Post-Giudo - Michael Squires MD - 01/16/2016 1408 EDT Post Anesthesia Evaluation Note Date of Service: 01/16/2016 Zaira Collins, a 60 y.o. year old female has received General Anesthesia today. She has been evaluated, assessed and discharged from anesthesia care with stable cardiorespiratory function and alert mental status. The last set of recorded vital signs and pain rating were reviewed: Temp: 35.5 ??C (95.9 ??F), BP: 131/88, Resp: 11, SpO2: 99 %,Numeric Pain Level (Scale 1-10): 4 Zaira Collins participated in this evaluation unless otherwise noted. Her pain, nausea and vomiting have been managed and her body temperature and fluid balance have been restored. Additional monitoring and assessment needs have been addressed. If present, any postoperative events are documentedbelow. Michael Squires MD 01/16/2016 14:08 documented in this encounter Plan of Treatment Upcoming Encounters Date Type Department Care Team (Late st Contact Info) Description 04/07/2024 9:00 EST Office Visit [facility] Endocrinology - [address] [phone] Vincenzo Rawls MD [address] [place] [address] [address] [place] [address] 08/22/2024 15:30 EDT Telemedicine [facility] Nephrology - [address] [phone] Jose L Whitley MD [address] [place] [address], [address] [place] [phone] documented as of this encounter Procedures Procedure Name Priority Date/Time Associated Diagnosis Comments PROCEDURE REPORTS - SCANNED 01/17/2016 0:35 EDT FL ERCP BILIARY&PANCREATIC Routine 01/16/2016 13:25 EDT documented in this encounter Results * PROCEDURE REPORTS - SCANNED (01/17/2016 0:35 EDT) 01/17/2016 0:35 EDT us Scan 2 Psychiatrist PROCEDURE/MINOR SURGICAL OR DERABLES Final Result * FL ERCP BILIARY&PANCREATIC (01/16/2016 13:25 EDT) Anatomical Region Laterality Modality Other 01/16/2016 13:2 5 EDT 01/16/2016 16:16 EDT Narrative 01/16/2016 16:16 EDT FL ERCP BILIARY ??01/16/2016 1:25 PM Signs and Symptoms/Comments: ?? Abd pain S/P ERCP . Comparison: MR showing reported filling defect in the common duct is not available for purposes comparison at time of dictation FINDINGS: Multiple intraprocedural fluoroscopic still images and cinematic sequences were obtained during the performance of ERCP and demonstrate initial guidewire access into both the pancreatic duct and common duct. Contrast is instilled into the biliary tree. There is intra and extrahepatic biliary ductal dilation. No definite filling defect is identified though there is smooth tapering of the distal common duct. Subsequent images show placement of a sweeping balloon with sweeping of the common duct. Several sweeps are performed. No residual filling defect identified. Please correlate with the notes from the procedure report. I have personally reviewed the images and the above interpretation and agree with the findings. Procedure Note Gareth Dietrich MD - 01/16/2016 FL ERCP BILIARY 01/16/2016 1:25 PM Signs and Symptoms/Comments: Abd pain S/P ERCP . Comparison: MR showing reported filling defect in the common duct is not available for purposes comparison at time of dictation FINDINGS: Multiple intraprocedural fluoroscopic still images and cinematic sequences were obtained during the performance of ERCP and demonstrate initial guidewire access into both the pancreatic duct and common duct. Contrast is instilled into the biliary tree. There is intra and extrahepatic biliary ductal dilation. No definite filling defect is identified though there is smooth tapering of the distal common duct. Subsequent images show placement of a sweeping balloon with sweeping of the common duct. Several sweeps are performed. No residual filling defect identified. Please correlate with the notes from the procedure report. I have personally reviewed the images and the above interpretation and agree with the findings. us Shay Courtney MD IMG FLUOROSCOPY ORDERABLES Estela l Result documented in this encounter Visit Diagnoses Not on filedocumented in this encounter Administered Medications Inactive Administered Medications - up to 3 most recent administrations Medication Order MAR Action Action Date Dose Rate Site lactated ringers (LR) infusion 30 mL/hr, intravenous, CONTINUOUS, Starting on Thu01/16/16 at 1300, Until Jazlyn 01/17/16 at 0040, Routine, Preprocedure New Bag 01/16/2016 12:10 EDT 30 mL/hr 30 mL/hr morphine injection 1 mg 1 mg, intravenous, NOW X1, 1 dose, On Thu01/16/16 at 1515, Routine Given 01/16/2016 14:50 EDT 1 mg documented in this encounter Historical Medications * This list may reflect changes made after this encounter. Hydromorphone (DILAUDID) 1 mg/mL liquid Take 1 mg by mouth every 4 hours. 04/16/2018 added in this encounter Active and Recently Administered Medications Times are shown in EDT. Scheduled Medication Order 01/14/2016 01/15/2016 01/16/2016 morphine injection 1 mg (COMPLETED) 1 mg, intravenous, NOW X1, 1 dose, On Thu01/16/16 at 1515, Routine 1450 (Given - Provid er: Angelika Rm RN) Continuous Medication Order 01/14/2016 01/15/2016 01/16/2016 lactated ringers (LR) infusion 30 mL/hr, intravenous, CONTINUOUS, Starting on Thu01/16/16 at 1300, Until Jazlyn 01/17/16 at 0040, Routine, Preprocedure 1210 (New Bag - Prov ider: Lesia Bonilla RN)1442 (Completed - Provider: Angelika Rm RN) documented in this encounter Orders Discharge Count Last Ordered Date First Orde red Date DISCHARGE PATIENT 1 01/16/2016 documented in this encounter Care Teams Yarn Packer Relationship Specialty Start Date End Date Mary Ann Goodman MD PCP - General 08/02/08 03/21/18 documented as of this encounter
--- OUTSIDE RECORDS SUMMARY | 2024-03-17 12:20 | XMS_ITS | Encounter Summary ---
Author Organization [facility] Address [address] [place] [address] Care Team Providers Care Cleaning Supervisor Name Role Phone Mary Ann Goodman MD Primary Care Provider Unavailable Encounter Details Date Type Department Care Team (Late Contact Info) Description 06/09/2013 Abstract [facility] Nephrology - [facility] [address] [place] [address] Giovanni Anthony MD [address] [place] [phone] Social History Tobacco Use Types Packs/Day [...] EST Office Visit [facility] Endocrinology - [facility] [address] [place], [place] [phone] Vincenzo Rawls MD [address] [facility] [address] [place] [address] 08/22/2024 15:30 EDT Telemedicine [facility] Nephrology - [address] [place], [place] [address] Jose L Whitley MD 1 [facility], [address] [place] [phone] documented as of this encounter Procedures Procedure Name Priority Date/Time Associated Diagnosis Comments BASIC METABOLIC PANEL (BMP) Routine 04/12/2013 documented in this encounter Results * BASIC METABOLIC PANEL (04/12/2013) GFR, Calculated, External [facility] Glucose, Serum, External 101 [facility] Calculated Calcium, External [facility] BUN, External 35 [facility] Calcium, External 9.0 [facility] Chloride, External 92 [facility] CO2, External 35.8 [facility] Creatinine, External 1.90 [facility] Fasting?, External [facility] Potassium, External 3.4 [facility] Sodium, External 135 [facility] Blood specimen (specimen) 04/12/2013 us Mary Ann Goodman MD CHEMISTRY & BLOOD GAS O RDERABLES Final Result [facility] documented in this encounter Visit Diagnoses Not on filedocumented in this encounter Historical Medications * This list may reflect changes made after this encounter. Magnesium Chloride 64 mg tablet,delayed release (DR/EC) Take 64 mg by mouth 2 times daily. 08/31/2013 added in this encounter Care Teams Cleaning Supervisor Relationship Specialty Start Date End Date Mary Ann Goodman MD PCP - General 08/02/08 03/21/18 documented as of this encounter
--- OUTSIDE RECORDS SUMMARY | 2024-03-17 12:20 | XMS_ITS | Encounter Summary ---
Author Organization [facility] Address [address] [place] [address] Care Team Providers Care Aircraft Powerplant Repairer Name Role Phone Mary Ann Goodman MD Primary Care Provider Unavailable Encounter Details Date Type Department Care Team (Late Contact Info) Description 10/04/2013 Abstract [facility] Nephrology - [facility] [address] [place] [address] Giovanni Anthony MD [address] [place] [phone] Social History Tobacco Use Types Packs/Day [...] Info) Description 04/07/2024 9:00 EST Office Visit [facility] Endocrinology - [facility] [address] [place] [address] Vincenzo Rawls MD [address] [facility] [address] [place] [address] 08/22/2024 15:30 EDT Telemedicine [facility] Nephrology - [address] [place], [place] [address] Jose L Whitley MD [facility] [address] [place] [phone] documented as of this encounter Procedures Procedure Name Priority Date/Time Associated Diagnosis Comments PTH INTACT Routine 09/30/2013 documented in this encounter Results * PTH INTACT (09/30/2013) PTH, External 143 [facility] Blood specimen (specimen) 09/30/2013 Giovanni Anthony MD CHEMISTRY & BLOOD GAS [facility] Final Result [facility] documented in this encounter Visit Diagnoses Not on filedocumented in this encounter Care Teams Aircraft Powerplant Repairer Relationship Specialty Start Date End Date Mary Ann Goodman MD PCP - General 08/02/08 03/21/18 documented as of this encounter
--- OUTSIDE RECORDS SUMMARY | 2024-03-17 12:20 | XMS_ITS | Encounter Summary ---
Author Organization [facility] Address [address] [place] [address] Care Team Providers Care Supervisor Screen Printing Name Role Phone Mary Ann Goodman MD Primary Care Provider Unavailable Reason for Visit * Reason Comments Pain from head to toe Encounter Details Date Type Department Care Team (Late st Contact Info) Description 08/12/2011 13:15 EDT Office Visit [facility] Interventional Pain [address] [place], [place] [id number] Unknown, Provider, Keeley Billingsley MD Brown, Michael B., DO [address], [place] [id number] Chronic low back pain (Primary Dx); Sacroiliac joint pain; Fibromyalgia; Tobacco abuse disorder; Opioid type dependence (CMS-HCC) ([facility]) Social History Tobacco Use Types Packs/Day Years [...] Sign Reading Time Taken Comments Blood Pressure 95/63 08/12/2011 1255 EDT Pulse 113 08/12/2011 1255 EDT Temperature 36.7 ??C (98 ??F) 08/12/2011 1255 EDT Respiratory Rate 18 08/12/2011 1255 EDT Oxygen Saturation - - Inhaled Oxygen Concentration - - Weight 40.8 kg (90 lb) 08/12/2011 1255 EDT Height 152.4 cm (5') 08/12/2011 1255 EDT Body Mass Index 17.58 08/12/2011 1255 EDT documented in this encounter Progress Notes * Rigo Diamond - 08/13/2011 0741 EDT [facility] OP PAIN CONSULT Patient Name: Zaira Collins : 1955 Date of Service: 08/13/2011 Chief Complaint: Chief Complaint Patient presents with ??? Pain from head to toe HPI: Mrs. Collins presents at the request of Mary Ann Goodman for reevaluation after initial consultation in [address] Marquis. She presents with a primary focus of pain in her low back, The pain is achy, crampy and shooting pain into the bilateral posterior thighs not extending below the knees. Sherates the pain a 9/10 average and constant. This pain has been present for many years. The pain is worse with any activity and improved only by opioid medication per patient report. Secondary complaints of pain is fibromyalgia pain and long history of Crohn's disease for which shehas had many abdominal sugeries. She reports that her fibromyalgia is very painful and is worsened since she has stopped taking Hydrocodone or Percocet. She is very open and forthcoming about her history with Dr. Goodman, stating that she once took a friend's Suboxone tablet, this appeared in a urine drug screen, and Dr. Goodman weaned her off the opioid pain regimen . She does not think she has a problem with opioid medications, and feels that her pain is overwhelming without opioid medications. She reports remote history of trials of many adjuvant medications including Nortriptyline and Gabapentin, and states she cannot afford to have other medications financially. Patient is insistent thatshe requires opioid medication. She is interested in restarting these medications and perseverates o n this throughout most of today's encounter. Allergies: Not on File Current Medications: Current Outpatient Prescriptions Medication Sig Dispense Refill ??? esomeprazole (NEXIUM) 20 mg capsule Take 64 mg by mouth 2 times daily. ??? ibuprofen (MOTRIN) 800 mg tablet Take 800 mg by mouth 3 times daily. ??? potassium chloride (MICRO-K) 10 mEq capsule Take 20 mEq by mouth daily. ??? sodium bicarbonate 650 mg Tab Take 650 mg by mouth 7X DAILY. ??? metoprolol (LOPRESSOR) 25 mg tablet Take 25 mg by mouth daily. ??? cyclobenzaprine (FLEXERIL) 10 mg tablet Take 10 mg by mouth 3 times daily as needed. ??? Black Cohosh 540 mg Cap Take by mouth. ??? BIOTIN ORAL Take by mouth. ??? DIAZepam (VALIUM) 5 mg tablet Take 5 mg by mouth 2 times daily. ??? Cyanocobalamin 1,000 mcg TbER Take by mouth. ??? prochlorperazine (COMPAZINE) 10 mg tablet Take 10 mg by mouth 3 times daily. ??? Estradiol (ESTRASORB) 2.5 mg/g (1.74 g) [place] onto the skin 2 times daily. Past Medical HX: Past Medical History Diagnosis Date ??? Depression Fibromyalgia Abdominal pain ??? Chronic kidney disease Past Surgical HX: Past Surgical History Procedure Date ??? Hysterectomy ??? Rectal surgery Past Social HX: History Social History ??? Marital Status: Spouse Name: N/A Number of Children: N/A ??? Years of Education: N/A Occupational History ??? Not on file. Social History Main Topics ??? Smoking status: Current Everyday Smoker -- 1.0 packs/day ??? Smokeless tobacco: Not on file ??? Alcohol Use: No ??? Drug Use: 2 per week Special: Marijuana ??? Sexually Active: Not on file Other Topics Concern ??? Not on file Social History Narrative ??? No narrative on file Family HX: History reviewed. No pertinent family history. Review of Systems: (diffusely positive on intake form) GENERAL: positive for chills excessive fatigue sweats weight loss malaise EYES: no complaints ENT: positive for sinus problem CARDIOVASCULAR: negative for chest pain RESPIRATORY: positive for shortness of breath with excertion cough GASTROINTESTINAL: positive for abdominal pain diarrhea nausea vomiting GENITOURINARY: positive for sexual dysfunction MUSCULOSKELETAL: positive for arthralgia, myalgia, decreased range of motion SKIN: positive for itching NEUROLOGICAL: positive for dizziness, numbness, weakness PSYCHIATRIC: positive for anxiety depression ENDOCRINE: no complaints HEMATOLOGICAL: negative for easy bruising/bleeding bleeding disorder coumadin anti-platelet meds Physical Exam: Vitals: Blood pressure 95/63, pulse 113, temperature 36.7 ??C (98 ??F), temperature source Tympanic, resp. rate 18, height 152.4 cm (60), weight 40.824 kg (90 lb). Body mass index is 17.58 kg/(m^2). General:awake, alert, cooperative, no apparent distress HEAD: normocephalic and atraumatic EYES: PERRLA, EOMI and Anicteric ENT: hearing intact and nose and throat clear Heart: normal S1 and S2 Lungs: clear to auscultation b/l Extremities: no clubbing, cyanosis, or edema Skin: clear, warm, dry and intact and no rashes, bruises or petechiae noted Musculoskeletal: Gait: Mildly antalgic Neuro: No focal deficits noted Cranial nerves II-XII grossly intact and symmetric Deep Tendon Reflexes: bilateral Biceps Triceps Brachioradialis Patella Achilles 2+ Strength Exam: bilateral Biceps, Triceps, Deltoid, Wrist Extensors, Wrist Flexors, Thenar, Interosseous, Hip Flexors, Hip Abductors, Hip Adductors, Knee Extensors, Knee Flexors, Plantar Flexion, Dorsiflexion, Extensor Halucis Longus and Tibialis Anterior 5/5 and poor patient effort throughout examination Sensory Exam: Rt upper Extremity intact, Lt upper extremity intact, Rt lower extremity intact and Lt lower extremity intact Coordination Exam: Normal Hyperalgesia is present in multiple areas in shoulders, back, hips, legs. Allodynia is absent Cervical Spine: nontenderness Thoracic spine: nontender Lumbar Spine: paraspinal tenderness at the bilateral mid lower levels SI Joint: bilateral BELLA positive Assessment: Zaira Collins is a 55 y.o. female with lumbosacral back pain as primary focus associated with the following diagnoses. Encounter Diagnoses Name Primary? Chronic low back pain Yes ??? Sacroiliac joint pain ??? Fibromyalgia ??? Tobacco abuse disorder ??? Opioid type dependence Plan: 1. Patient is not a candidate for resumption of opioid therapy due violation of opioid contract at outside office. There is concern for further inappropriate consumption going forward and patients reluctance to discuss any alternatives for therapy and perseveration on opioid medications does not osmin well for future use. 2. Although she is adamant that she does not want to entertain injection therapy, we offered her bilateral diagnostic and potentially therapeutic sacroiliac joint injections. This is where we would start based on her examination and symptom focus. 3. Further medication management to include trials of: -Gabapentin TID tapered to effect. -Nortriptyline 25 mg QHS. -Savella -Scheduled dosing of Ibuprofen -Scheduled dosing of Acetaminophen In the setting of no opioid, there is potential that she may realize benefit overlooked or overshadowed previously from trials of these medications. During this encounter, counseling and education about therapeutic options, risks, and benefits wereprovided. The patient expressed verbal understanding of the outlined care plan. All questions were answered to the patient's satisfaction. Thank you for allowing us to participate in the care of Zaira Collins. Attending attestation: I saw and examined the patient with the resident/fellow. I agree with the findings and plan of care documented in the resident's/fellow's note. Keeley Stallworth MD documented in this encounter Miscellaneous Notes * Scanned Note-Null - [employer] TECHNICIAN, SCAN 2 - 08/13/2011 1527 EDT documented in this encounter Plan of Treatment Upcoming Encounters Date Type Department Care Team (Late st Contact Info) Description 04/07/2024 9:00 EST Office Visit [facility] Endocrinology - [address] [address] Vincenzo Rawls MD [address] [facility] [address] [place] [address] 08/22/2024 15:30 EDT Telemedicine [facility] Nephrology - [address] [address] Jose L Whitley MD [address] [facility], [address] [place] [phone] documented as of this encounter Visit Diagnoses Diagnosis Chronic low back pain- Primary Lumbago Sacroiliac joint pain Disorders of sacrum Fibromyalgia Mylagia and myositis, unspecified Tobacco abuse disorder Tobacco use disorder Opioid type dependence ([facility]) Opioid type dependence, unspecified documented in this encounter Historical Medications * This list may reflect changes made after this encounter. potassium chloride (MICRO-K) 10 mEq capsule Take 2 Capsules by mouth daily. Estradiol (ESTRASORB) 2.5 mg/g (1.74 g) [place] [address] onto the skin every 7 days . 6 prochlorperazine (COMPAZINE) 10 mg tablet Take 10 mg by mouth 3 times daily. 6 Cyanocobalamin 1,000 mcg TbER Take by mouth. 9 DIAZepam (VALIUM) 5 mg tablet Take 5 mg by mouth 2 times daily. 9 BIOTIN ORAL Take 5,000 mg by mouth daily. 9 Black Cohosh 540 mg Cap Take by mouth. 6 cyclobenzaprine (FLEXERIL) 10 mg tablet Take 5 mg by mouth 3 times daily. 2 metoprolol (LOPRESSOR) 25 mg tablet Take 12.5 mg by mouth daily. 2 sodium bicarbonate 650 mg Tab Take 1,300 mg by mouth 6 times daily . 4 ibuprofen (MOTRIN) 800 mg tablet Take 800 mg by mouth 3 times daily. 4 esomeprazole (NEXIUM) 20 mg capsule Take 64 mg by mouth 2 times daily. 4 added in this encounter Care Teams Supervisor Screen Printing Relationship Specialty Start Date End Date Mary Ann Goodman MD PCP - General 08/02/08 03/21/18 documented as of this encounter
--- OUTSIDE RECORDS SUMMARY | 2024-03-17 12:21 | XMS_ITS | Encounter Summary ---
Author Organization [facility] Address [address] [place] [address] Care Team Providers Care Legal Services Professional Name Role Phone Unavailable Primary Care Provider Unavailabl e Encounter Details Date Type Department Care Team (Latest Contact Info) Description 04/14/2008 9:38 EST - 04/14/2008 11:59 EST Hospital Encounter [facility] [address] [place] [address] Nafisa Espinosa MD [address] [place] [address] Discharge Disposition: Auto Discharge Social History Tobacco Use Types Packs/Day Years Used Date Smoking Tobacco: Never Assessed Comments Unknown Sex and Gender Information Value Date Recorded Sex Assigned at Not on file Legal Sex Female 17:52 EST Gender Identity Female 10/11/2020 8:15 EDT Sexual Orientation Not on file documented as of this encounter Discharge Disposition Disposition Code Departure Means Destination Auto Discharge documented in this encounter Plan of Treatment Upcoming Encounters Date Type Department Care Team (Late st Contact Info) Description 04/07/2024 9:00 EST Office Visit [facility] Endocrinology - [facility] [address] [place], [place] [phone] Vincenzo Rawls MD [address] [facility] [address] [place] [address] 08/22/2024 15:30 EDT Telemedicine [facility] Nephrology - [address] [place], [place] [address] Jose L Whitley MD [address] [facility], [address] [place] [address] documented as of this encounter Procedures Procedure Name Priority Date/Time Associated Diagnosis Comments SURGICAL PATHOLOGY Routine 05/04/2008 0: [address] ENTEROGRAPHY W CONTRAST 04/14/2008 11:37 EST documented in this encounter Results * SURGICAL PATHOLOGY (05/04/2008 0:00 EST) Pathology Report: SURGICAL PATHOLOGY REPORT ? Reports generated via electronic interface contain original data; ? however they are lacking the format of the original report. ? Caution should be taken when reading/interpreti ng unformatted reports. ? Name: ? ZAIRA COLLINS ? Accession #: ? [id number] ? : ? 1955 (Age: 52) ??F ? Collect Date: ? 05/04/2008 ? Location: ? [facility] ? Receive Date: ? 05/04/2008 ? Provider: NAFISA H NITISH MD ? Copy to: STARR NIEMIRA MD ? Final Pathologic Diagnosis: ? Ileum, terminal, biopsy: ? 1. ?Small intestinal mucosa with no specific pathologic features. ? 2. ? No active or chronic enteritis identified. ? Document reviewed and electronically signed by: ? DONNIE DURAND MD ? Report ??Date: 05/05/2008 14:00 ? By the signature above, the attending physician certifies that he/she has ? personally conducted a gross and/or microscopic examination of the described ? specimens and rendered or confirmed the above diagnosis. ? Specimen(s) Received: ? TI ? Clinical History: ? H/O Crohn's, looks normal ? Gross Description: ? Received in [place]ar's fixative labelled [place] and terminal ileum is a single 0.3 x 0.2 x 0.1 cm pink-oneil tissue submitted in one cassette. ??(L. ? Alvin)/tmg ? End of Report ? [facility] 05/04/2008 05/04/2008 14: 27 EST us Nafisa Espinosa MD PATHOLOGY ORDERABLES Final Resul t [facility] [address] [place] [address] * CT ENTEROGRAPHY (04/14/2008 11:37 EST) Anatomical Region Laterality Modality Other 04/14/2008 11:3 7 EST Narrative 07/31/2008 9:51 EDT crohns, s/p total proctocolectomy w/ ileostomy, vaginal fistula. CT ENTEROGRAPHY 2008 at 11:12 a.m. History: 52-year-old female status post total proctocolectomy and has reportedly had 3 bowel resections. Patient had a vaginal fistula. Patient has an ileostomy. Please evaluate for active Crohn's disease. Comparisons: None. Technique: CT enterography was performed with the ??remaining npo after midnight the night before. The patient was ??administered 3 ??bottles of VoLumen, 450 mls each, one bottle po every 20 minutes for 1 hour, total volume of [address] scan table the patient received glucagon 1 mg IV. After waiting 2 minutes,100 cc of intravenous contrast was ??injected at 4 ml's per second. Acquisition was obtained 70 seconds from the initiation of bolus. Scanning parameters allow for near isotropic voxels. Data and reconstructions were sent to PACS workstation's for interpretation in thin cut axial, coronal and sagittal views Findings: No active Crohn's disease was seen. Evaluation of the lung bases demonstrates subpleural atelectasis as well as a few branching opacities in the left lower lobe, likely resolving infection. Minimal emphysema is noted in the bases. The liver homogeneously enhances with a normal contour and no focal hepatic mass.The gallbladder is unremarkable and free of stones. There is mild biliary dilatation but no perihepatic inflammatory change or stones. The spleen, pancreas and bilateral adrenal glands are unremarkable. Multiple bilateral renal cysts are noted, the largest measuring approximately 2 cm in the right upper pole. There is minimal bilateral symmetric ureteral dilatation without evidence of stones. Mild bilateral medullary nephrocalcinosis is noted. Mild aortic calcification is noted. There is mild abdominal and retroperitoneal adenopathy, consistent with reactive lymphadenopathy secondary to chronic Crohn's disease. The small bowel is in general well distended, however, there are areas of small bowel collapse, making evaluation of the mucosa suboptimal in some areas. No fistulous formation is seen. No active Crohn's disease is seen. No free air or significant free fluid is noted. The patient has a normal appearing left lower quadrant ileostomy. A small pocket of low attenuation fluid is seen posterior to the lower vagina, image 781, series 2, on the 0.9 mm thin axial sections. No changes are seen along the area of the rectovaginal fascia and soft tissues. A small amount of low attenuation fluid is seen within the vagina, best visualized on image 156 sagittal thin reformations, series 4. There are minimal infiltrative changes seen near the upper vagina, likely due to previous hysterectomy. Evaluation of the osseous structures shows no significant abnormality. Impression: 1. No CT evidence of active Crohn's flare. 2. Status post total proctocolectomy with left lower quadrant ileostomy. 3. Vaginal fluid, but no evidence of fistula. 4. Low attenuation fluid within the vagina and a small, less than 1 cm, well-circumscribed area of low density fluid posterior to the lower vagina, image 71, series 2. No fistula visualized. 5. Bilateral medullary nephrocalcinosis. No collecting system stones seen. 6. Bilateral renal cysts. 7. Status post hysterectomy. 8. Mild basilar, left greater than right subsegmental atelectasis and minimal branching opacities which may represent resolving infection. 8. Minimal emphysema area Dr. Daigle discussed the important findings with Dr. Espinosa. I have personally reviewed the images and the above interpretation and agree with the findings. Procedure Note Naveen Orozco DDS / Juan C Daigle MD - 07/31/2008 crohns, s/p total proctocolectomy w/ ileostomy, vaginal fistula. CT ENTEROGRAPHY 2008 at 11:12 a.m. History: 52-year-old female status post total proctocolectomy and has reportedly had 3 bowel resections. Patient had a vaginal fistula. Patient has an ileostomy. Please evaluate for active Crohn's disease. Comparisons: None. Technique: CT enterography was performed with the remaining npo after midnight the night before. The patient was administered 3 bottles of VoLumen, 450 mls each, one bottle po every 20 minutes for 1 hour, total volume of [address] scan table the patient received glucagon 1 mg IV. After waiting 2 minutes,100 cc of intravenous contrast was injected at 4 ml's per second. Acquisition was obtained 70 seconds from the initiation of bolus. Scanning parameters allow for near isotropic voxels. Data and reconstructions were sent to PACS workstation's for interpretation in thin cut axial, coronal and sagittal views Findings: No active Crohn's disease was seen. Evaluation of the lung bases demonstrates subpleural atelectasis as well as a few branching opacities in the left lower lobe, likely resolving infection. Minimal emphysema is noted in the bases. The liver homogeneously enhances with a normal contour and no focal hepatic mass.The gallbladder is unremarkable and free of stones. There is mild biliary dilatation but no perihepatic inflammatory change or stones. The spleen, pancreas and bilateral adrenal glands are unremarkable. Multiple bilateral renal cysts are noted, the largest measuring approximately 2 cm in the right upper pole. There is minimal bilateral symmetric ureteral dilatation without evidence of stones. Mild bilateral medullary nephrocalcinosis is noted. Mild aortic calcification is noted. There is mild abdominal and retroperitoneal adenopathy, consistent with reactive lymphadenopathy secondary to chronic Crohn's disease. The small bowel is in general well distended, however, there are areas of small bowel collapse, making evaluation of the mucosa suboptimal in some areas. No fistulous formation is seen. No active Crohn's disease is seen. No free air or significant free fluid is noted. The patient has a normal appearing left lower quadrant ileostomy. A small pocket of low attenuation fluid is seen posterior to the lower vagina, image 781, series 2, on the 0.9 mm thin axial sections. No changes are seen along the area of the rectovaginal fascia and soft tissues. A small amount of low attenuation fluid is seen within the vagina, best visualized on image 156 sagittal thin reformations, series 4. There are minimal infiltrative changes seen near the upper vagina, likely due to previous hysterectomy. Evaluation of the osseous structures shows no significant abnormality. Impression: 1. No CT evidence of active Crohn's flare. 2. Status post total proctocolectomy with left lower quadrant ileostomy. 3. Vaginal fluid, but no evidence of fistula. 4. Low attenuation fluid within the vagina and a small, less than 1 cm, well-circumscribed area of low density fluid posterior to the lower vagina, image 71, series 2. No fistula visualized. 5. Bilateral medullary nephrocalcinosis. No collecting system stones seen. 6. Bilateral renal cysts. 7. Status post hysterectomy. 8. Mild basilar, left greater than right subsegmental atelectasis and minimal branching opacities which may represent resolving infection. 8. Minimal emphysema area Dr. Daigle discussed the important findings with Dr. Espinosa. I have personally reviewed the images and the above interpretation and agree with the findings. us Nafisa Espinosa MD IMG CT ORDERABLES Final Result documented in this encounter Visit Diagnoses Not on filedocumented in this encounter
--- OUTSIDE RECORDS SUMMARY | 2024-03-17 12:21 | XMS_ITS | Encounter Summary ---
Author Organization [facility] Address [address] [place] [address] Care Team Providers Care Reception Clerk Name Role Phone Unavailable Primary Care Provider Unavailabl e Encounter Details Date Type Department Care Team (Late Contact Info) Description 11/24/2007 10:18 EDT Hospital Encounter [address] [address] Navneet Truong MD Social History Tobacco Use Types Packs/Day [...] Info) Description 04/07/2024 9:00 EST Office Visit [facility] Endocrinology - [address] [place], [place] [phone] Vincenzo Rawls MD 62 [facility] [address] [place] [address] 08/22/2024 15:30 EDT Telemedicine [facility] Nephrology - [facility] [place], [place] 1 [place], [place] [address] Jose L Whitley MD 1 [facility], [address] [place] [phone] documented as of this encounter Procedures Procedure Name Priority Date/Time Associated Diagnosis Comments ENDOMYSIAL ANTIBODY, SERUM Routine 11/24/2007 11:24 EDT TISSUE TRANSGLUTAMINASE ANTIBODY Routine 11/24/2007 11:24 EDT IGA Routine 11/24/2007 11:24 EDT COMPLETE BLOOD COUNT AND DIFFERENTIAL Routine 11/24/2007 11:24 EDT COMPREHENSIVE METABOLIC PANEL (CMP) Routine 11/24/2007 11:24 EDT documented in this encounter Results * ENDOMYSIAL ANTIBODY, SERUM (11/24/2007 11:24 EDT) Endomysial Antibodies Negative Reference range: Negative(Note) Analyte Specific Reagent ? This test was developed and its performance characteristics ? determined by [facility], [facility]. This test has not been cleared or ? approved by the U.S. Food and Drug Administration. ? Performed or Referred by: [facility] Dpt of Lab Med and Path, [address] ? [place] [address], Lab Dir: Dawson Hu III, ? MD ? [facility] 11/24/2007 11:2 4 EDT 11/24/2007 11:26 EDT us Navneet Truong MD IMMUNOLOGY AND SEROLOGY ORDER BRYAN Final Result Performing Organization Address [facility] de Phone Number [facility] [address] [place] [address] * TISSUE TRANSGLUTAMINASE ANTIBODY (11/24/2007 11:24 EDT) Tissue Transglutaminase Ab 8.58 <15.01 U/ml [facility] 11/24/2007 11:2 4 EDT 11/24/2007 11:26 EDT us Navneet Truong MD IMMUNOLOGY AND SEROLOGY ORDER BRYAN Final Result Performing Organization Address [facility] de Phone Number [facility] [address] [place] [address] * IGA (11/24/2007 11:24 EDT) IgA 302 82 - 453 mg/dl [facility] 11/24/2007 11:2 4 EDT 11/24/2007 11:26 EDT us Navneet Truong MD CHEMISTRY & BLOOD GAS ORDERAB LES Final Result [facility] [address] [place] [address] * (ABNORMAL) HEMAGRAM AND DIFFERENTIAL (11/24/2007 11:24 EDT) WBC 7.38 4.0 - 12.4 K/cmm [facility] RBC 3.84(L) 3.86 - 5.04 M/cmm [facility] Hemoglobin 12.9 11.6 - 15.2 gm/dl [facility] HCT 37.0 34.9 - 44.4 % [facility] MCV 96 81 - 98 fl [facility] MCH 33.7(H) 26.7 - 33.3 pg [facility] MCHC 35.0 32.1 - 35.9 gm/dl [facility] PLT 276 141 - 320 K/cmm [facility] RDW-CV 14.9(H) 11.7 - 14.6 % [facility] Neutrophils 58.2 45.5 - 79.7 % [facility] Lymphocytes 34.0 15.0 - 46.8 % [facility] Monocytes 6.0 1.8 - 12.0 % [facility] Eosinophils 1.4 0.6 - 6.9 % [facility] Basophils 0.4 0.2 - 1.4 % [facility] ABS Neutrophils 4.31 2.20 - 8.85 K/cmm [facility] ABS Lymphs 2.51 1.09 - 3.30 K/cmm [facility] ABS Monocytes 0.44 0.1 - 0.8 K/cmm [facility] ABS Eosinophils 0.10 0.03 - 0.61 K/cmm [facility] ABS Basophils 0.03 0.01 - 0.11 K/cmm [facility] Type of Diff: Automated [facility] 11/24/2007 11:2 4 EDT 11/24/2007 11:26 EDT us Navneet Truong MD PACKAGES & DNA PROBE ORDERABL ES Final Result [facility] [address] [place] [address] * (ABNORMAL) COMPREHENSIVE METABOLIC PANEL (11/24/2007 11:24 EDT) Potassium 4.6 3.5 - 5.0 mEq/L [facility] Comment:Slightly lipemic Sodium 140 136 - 145 mEq/L [facility] Comment:Slightly lipemic Chloride 103 96 - 110 mEq/L [facility] Comment:Slightly lipemic CO2 26 24 - 32 mEq/L [facility] Comment:Slightly lipemic Alkaline Phosphatase 110 38 - 126 U/L [facility] Comment:Slightly lipemic Bilirubin, Total <0.5 0.2 - 1.3 mg/dl [facility] Comment:Slightly lipemic AST 37 15 - 46 U/L [facility] Comment:Slightly lipemic ALT 20 9 - 52 U/L [facility] Comment:Slightly lipemic Albumin 5.0(H) 3.4 - 4.9 g/dl [facility] Comment:Slightly lipemic Total Protein 8.4(H) 6.5 - 8.3 g/dl [facility] Comment:Slightly lipemic Creatinine 1.29 0.7 - 1.5 mg/dl [facility] Comment:Slightly lipemic GFR, Calculated 44 ml/min/1.7 3m2 [facility] Comment:Slightly lipemic BUN 17 10 - 26 mg/dl [facility] Comment:Slightly lipemic Calcium 9.3 8.5 - 10.5 mg/dl [facility] Comment:Slightly lipemic Calculated Calcium 8.7 8.5 - 10.5 mg/dl [facility] Comment:Slightly lipemic Glucose, Serum 90 70 - 100 mg/dl [facility] Comment:Slightly lipemic Fasting? No [facility] 11/24/2007 11:2 4 EDT 11/24/2007 11:26 EDT us Navneet Truong MD CHEMISTRY & BLOOD GAS ORDERAB LES Final Result [facility] [address] [place] [id number] documented in this encounter Visit Diagnoses Not on filedocumented in this encounter
--- OUTSIDE RECORDS SUMMARY | 2024-03-17 12:21 | XMS_ITS | Encounter Summary ---
Author Organization [facility] Address [address] [place] [address] Care Team Providers Care Forest Engineer Name Role Phone Unavailable Primary Care Provider Unavailabl e Encounter Details Date Type Department Care Team (Late st Contact Info) Description 04/03/2008 11:48 EST Hospital Encounter [facility] [place] [address] [place] [address] Dusty Espinosa MD [address] [place] [address] Social History Tobacco Use Types Packs/Day Years [...] Office Visit [facility] Endocrinology - [facility] [address] [place] [address] Vincenzo Rawls MD [address] [facility] [address] [place] [address] 08/22/2024 15:30 EDT Telemedicine [facility] Nephrology - [facility] 1 [place], [place] [address] Jose L Whitley MD 1 [facility], [address] [place] [phone] documented as of this encounter Visit Diagnoses Not on filedocumented in this encounter
--- OUTSIDE RECORDS SUMMARY | 2024-03-17 12:21 | XMS_ITS | Encounter Summary ---
Author Organization [facility] Address [address] [place] [address] Care Team Providers Care Freight Solicitor Name Role Phone Unavailable Primary Care Provider Unavailabl e Encounter Details Date Type Department Care Team (Latest Contact Info) Description 05/04/2008 11:46 EST - 05/04/2008 11:59 EST Hospital Encounter [facility] [place] [address] [place] [address] Nafisa Espinosa MD [address] [place] [address] Discharge Disposition: Auto Discharge Social [...] Description 04/07/2024 9:00 EST Office Visit [facility] Endocr[facility]ology - [facility] [address] [place], [place] [phone] Vincenzo Rawls MD 62 [facility] [address] [place] [address] 08/22/2024 15:30 EDT Telemedicine [facility] Nephrology - [place] [address] [place], [place] [address] Jose L Whitley MD 1 [facility], [address] [place] [address] documented as of this encounter Procedures Procedure Name Priority Date/Time Associated Diagnosis Comments SURGICAL PATHOLOGY Routine 05/09/2008 0: 00 EST COMPLETE BLOOD COUNT Routine 05/04/2008 13:30 EST BUN Routine 05/04/2008 13:30 EST CREATININE Routine 05/04/2008 13:30 EST ELECTROLYTES Routine 05/04/2008 13:30 EST documented in this encounter Results * SURGICAL PATHOLOGY (05/09/2008 0:00 EST) Pathology Report: SURGICAL PATHOLOGY REPORT ? Reports generated via electronic interface contain original data; ? however they are lacking the format of the original report. ? Caution should be taken when reading/interpreting unformatted reports. ? Name: ? ZAIRA COLLINS ? Accession #: ? [id number] ? : ? 1955 (Age: 52) ??F ? Collect Date: ? 05/09/2008 ? Location: ? [facility] ? Receive Date: ? 05/09/2008 ? Provider: NAFISA H NITISH MD ? Copy to: STARR NIEMIRA MD ? Final Pathologic Diagnosis: ? Perineal abscess cavity, debridement: ? - Granulation tissue with acute and chronic inflammation, fibrinoinflammatory ?? debris, and benign ? adipose tissue. ? Document reviewed and electronically signed by: ? Tamy Mathis MD ? Report ??Date: 05/11/2008 17:22 ? By the signature above, the attending physician certifies that he/she has ? personally conducted a gross and/or microscopic examination of the described ? specimens and rendered or confirmed the above diagnosis. ? Specimen(s) Received: ? Perineal abscess cavity ? Clinical History: ? Unhealed perineal would with pelvic abscess, S/P proctectomy @ [facility] [place] ?? for Crohn's dz ? Gross Description: ? Received in normal saline labelled Lontine and wound from perineal ? abscess cavity is a 1.7 x 1.1 x 0.7 cm, fragment portion of hemorrhagic tissue. The specimen is serially sectioned and is entirely submitted in one cassette. ?? (Dr. Torrez)/[facility] ? End of Report ? [facility] 05/09/2008 05/09/2008 14: 27 EST Nafisa Espinosa MD PATHOLOGY ORDERABLES Final Resul t Performing Organization Address [facility] de Phone Number [facility] [address] [place] [address] * CREATININE (05/04/2008 13:30 EST) Creatinine 0.88 0.7 - 1.5 mg/dl [facility] GFR, Calculated >60 ml/min/1.7 3m2 [facility] 05/04/2008 13:3 0 EST 05/04/2008 13:40 EST Nafisa Espinosa MD CHEMISTRY & BLOOD GAS ORDERABLES Final Result Performing Organization Address [facility] de Phone Number [facility] [address] [place] [address] * BUN (05/04/2008 13:30 EST) BUN 11 10 - 26 mg/dl [facility] 05/04/2008 13:3 0 EST 05/04/2008 13:40 EST Nafisa Espinosa MD CHEMISTRY & BLOOD GAS ORDERABLES Final Result Performing Organization Address [facility] de Phone Number [facility] [address] [place] [address] * (ABNORMAL) ELECTROLYTES (05/04/2008 13:30 EST) Sodium 137 136 - 145 mEq/L [facility] Potassium 3.7 3.5 - 5.0 mEq/L [facility] Chloride 107 96 - 110 mEq/L [facility] CO2 23(L) 24 - 32 mEq/L [facility] 05/04/2008 13:3 0 EST 05/04/2008 13:40 EST Nafisa Espinosa MD CHEMISTRY & BLOOD GAS ORDERABLES Final Result Performing Organization Address [facility] de Phone Number [facility] [address] [place] [address] * (ABNORMAL) HEMAGRAM (05/04/2008 13:30 EST) WBC 10.64 4.0 - 12.4 K/cmm [facility] RBC 3.25(L) 3.86 - 5.04 M/cmm [facility] Hemoglobin 10.7(L) 11.6 - 15.2 gm/dl [facility] HCT 31.1(L) 34.9 - 44.4 % [facility] MCV 96 81 - 98 fl [facility] MCH 33.0 26.7 - 33.3 pg [facility] MCHC 34.5 32.1 - 35.9 gm/dl [facility] PLT 219 141 - 320 K/cmm [facility] RDW-CV 13.7 11.7 - 14.6 % [facility] 05/04/2008 13:3 0 EST 05/04/2008 13:40 EST Nafisa Espinosa MD HEMATOLOGY & PF4 ORDERABLES Estela l Result Performing Organization Address [facility] Co de Phone Number [facility] [address] [place] [address] documented in this encounter Visit Diagnoses Not on filedocumented in this encounter
--- OUTSIDE RECORDS SUMMARY | 2024-03-17 12:21 | XMS_ITS | Encounter Summary ---
Author Organization [facility] Address [address] [place] [address] Care Team Providers Care Ammunition Assembly Ii Laborer Name Role Phone Mary Ann Goodman MD Primary Care Provider Unavailable Encounter Details Date Type Department Care Team (Late Contact Info) Description 11/24/2007 Before PRISM Converted Visit ([place]) [facility] - [facility] conversion [address] [place] [address] Navneet Truong MD Social History Tobacco Use Types Packs/Day Years Used Date Smoking Tobacco: Never Assessed Comments Unknown Sex and Gender Information Value Date Recorded Sex Assigned at Not on file Legal Sex Female 17:52 EST Gender Identity Female 10/11/2020 8:15 EDT Sexual Orientation Not on file documented as of this encounter Consult Notes * Navneet Truong MD - 10/07/2008 0510 EDT DIVISION OF GASTROENTEROLOGY CONSULTATION - 11/24/2007 HISTORY OF PRESENT ILLNESS Thank you Dr. Goodman for allowing me to see Zaira Collins in consultation regarding a possible vaginal fistula. According to the patient, she has had inflammatory bowel disease since age 9 and was initially feltto have ulcerative colitis, but over time it seemed to declare itself as possibly Crohn's. Patient states she had her first operation in 1975 in [place]. Subsequently she had an operationin 1983 that sounds like a total colectomy and ileostomy and then as well in 2001 had completion ofthe colectomy with the rectum removed in 2001. Unfortunately all these operations were done elsewhere and no medical records are available at the time of this dictation. The patient states she has been previously followed in [place] at [facility] (again no records from [facility] are available at this time). Otherwise, patient has been doing well except for the fact that she had a nutrition problem and hadbeen treated with a percutaneous endoscopic gastroscopy that was recently removed since she has increased her oral intake. The patient states about 2-3 months ago she began noticing some drainage andirritation near the vagina region requiring a pad. Patient reportedly states she was treated with Cipro for a week and then Flagyl for a week in August and September without success. Patient reportedly as well was seen by Dr. Cheikh Henson. ALLERGIES None known. PRESENT MEDICATIONS K-Dur, Toprol, Slow-Mag, Flexeril, calcium, Vicodin, Valium, sodium bicarb, B-12 injections once monthly and Chantix. PHYSICAL EXAMINATION On examination today, blood pressure is 128/90, pulse is 68, weight was 93 pounds. Belly was soft, nontender, no rebound or perineal signs. Patient does not have a rectum. Perivaginal exam was unremarkable. I could not see any fistulae. The perivaginal region was examined with Ashley Fagan in the room. No evidence of a fistula. IMPRESSION Inflammatory bowel disease, ? Crohn's. Patient is status post surgery with an ileostomy and total colectomy with completion colectomy in 2001. 2. ? vaginal irritation, etiology unclear. 3. Patient continues to smoke cigarettes. 4. Electrolyte disturbances in the past. AND CONTINGENCY Patient will have blood work drawn today including a CBC diff, comprehensive metabolic panel, tissue transglutaminase, endomysial antibody and serum IgA to assess for celiac disease. In addition, an upper GI small bowel followthrough will be obtained to assess whether there is any noticeable small bowel fistula. Patient will be requested to be seen by Gynecology to see if there is any perivaginaldisease. Patient has been encouraged once again to try to quit smoking. Patient has requested to be followed up in the GI office after the above studies. Signed by Navneet Truong MD, FACP 11/25/2007 17:02 Navneet Truong MD, FACP [phone] - Navneet Truong MD, FACP - SAMUEL Job ID: [id number] Doc ID: [id number] cc: Mary Ann Goodman MD documented in this encounter Plan of Treatment Upcoming Encounters Date Type Department Care Team (Late st Contact Info) Description 04/07/2024 9:00 EST Office Visit [facility] Endocrinology - [address] [address] Vincenzo Rawls MD [address] [address] 08/22/2024 15:30 EDT Telemedicine [facility] Nephrology - [facility] [place] [address] [place], [place] [phone] Jose L Whitley MD 1 [facility], [address] [place] [phone] documented as of this encounter Visit Diagnoses Not on filedocumented in this encounter Care Teams Ammunition Assembly Ii Laborer Relationship Specialty Start Date End Date Mary Ann Goodman MD PCP - General 08/02/08 03/21/18 documented as of this encounter
--- OUTSIDE RECORDS SUMMARY | 2024-03-17 12:21 | XMS_ITS | Encounter Summary ---
Author Organization [facility] Address [address] [place] [address] Care Team Providers Care Learning And Development Consultant Name Role Phone Mary Ann Goodman MD Primary Care Provider Unavailable Encounter Details Date Type Department Care Team (Late st Contact Info) Description 04/15/2008 Before PRISM Converted Visit ([facility]) [facility] - Maple conversion [address] [place] [address] Dusty Espinosa MD [address] [place] [address] Social History Tobacco Use Types Packs/Day Years Used Date Smoking Tobacco: Never Assessed Comments Unknown Sex and Gender Information Value Date Recorded Sex Assigned at Not on file Legal Sex Female 17:52 EST Gender Identity Female 10/11/2020 8:15 EDT Sexual Orientation Not on file documented as of this encounter Progress Notes * Dusty Espinosa - 10/07/2008 0236 EDT DIVISION OF GENERAL SURGERY April 15, 2008 ZAIRA COLLINS [address] [facility] [address] [place] [address] Dear Cynthia: I just wanted to let you know that your CT scan showed absolutely no evidence of active Crohns disease. As such, I do not think you have any problem with your intestine that is causing the drainage. Things otherwise look good. Please let me know if you have any questions in this regard. Sincerely, Signed by Dusty Espinosa MD, FACS 04/22/2008 08:40 Case Espinosa MD, [phone] H Hyman, MD, FACS - Dusty Espinosa MD, FACS - Job ID: [id number] Doc ID: [id number] cc: ZAIRA COLLINS, [address] [place] [address], [address], [place] [address]* documented in this encounter H&P Notes * Dusty Espinosa - 10/07/2008 1738 EDT DIVISION OF GENERAL SURGERY PREOPERATIVE HISTORY AND PHYSICAL EXAMINATION DATE OF SERVICE: 05/04/2008 PROBLEM Perineal abscess. HISTORY OF PRESENT ILLNESS Cynthia is a 52-year-old woman who I had seen in consultation last month from Dr Valera. She has a long and complicated history of Crohndisease dating back to childhood. She has had four operations, the first being in [place] in 1975. She ended up with a completion proctectomy and ileostomy in 2001. She does not know if she has had any small bowel resected; however, she does know that perianal disease has been a bit issue for her. Over the past year, she has had a lot of drainage from the vaginal area. She would have cycles of pain followed by drainage. This has caused considerable disability. I had set her up for a CT enterography, which revealed no evidence of intestinal activity of her Crohndisease. She has also been set up to have an ileoscopy; however, most recently she has had an increase in her vaginal pain. In thiscontext, she is set up for examination under anesthesia. I had offered to do it today but she has family functions this weekend and the abscess in the vaginal area started to drain a bit. As such, she would very much like to hold off until the beginning of next week. PAST SURGICAL HISTORY Remarkable for the proctocolectomy with ileostomy and three other bowel resections. She has also had a hysterectomy. PAST MEDICAL HISTORY Remarkable for Crohns disease. CURRENT MEDICATIONS Cipro, Flagyl, potassium, Toprol, Flexeril, Vicodin, sodium bicarbonate, Maxalt and Valium. ALLERGIES No known drug allergies. FAMILY HISTORY There is no family history of colorectal cancer. Her mother had inflammatory bowel disease. SOCIAL HISTORY She does continue to smoke cigarettes. She drinks occasional alcohol. REVIEW OF SYSTEMS On review of systems, there is no major cardiopulmonary morbidity. 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 She has a long history of sinus tachycardia. PHYSICAL EXAM On physical exam, she looks comfortable. Her stated weight is 93 pounds. Blood pressure was 119/79.Heart rate was 110, which was normal for her. There are no carotid bruits. Lungs are clear. Heart exam reveals a sinus tachycardia. On abdominal exam, she has a healthy appearing left lower quadrant ostomy. The anal canal is surgically absent. The remainder of the perineal and pelvic exam is deferred. CT enterography is reviewed. Again, there is no clear evidence of intestinal Crohns disease. There were minimal emphysematous changes in the lung. There is a small amount of fluid posterior to the lowermost vagina that is noted. White count from November is 7.3, hemoglobin was 12.9. Her electrolytes and liver function tests were normal. Her creatinine was 1.3. Repeat CBC and electrolytes are ordered for today. ASSESSMENT Recurrent perineal infections, likely related to an unhealed perineal wound or cutaneous Crohns disease. PLAN I gave her pain medicine to get her through the weekend. Again, she would like to hold off until early next week. We will do a thorough examination under anesthesia and drain any abscesses. The difficulties with getting these wounds to heal and the difficulty for staged procedures were reviewed in detail. Signed by Dusty Espinosa MD, FACS 05/05/2008 15:07 Dusty Espinosa MD, FACS [phone] - Dusty Espinosa MD, FACS - CD Job ID: [id number] Doc ID: [id number] cc: MD Mary Ann Morrison MD documented in this encounter Plan of Treatment Upcoming Encounters Date Type Department Care Team (Late st Contact Info) Description 04/07/2024 9:00 EST Office Visit [facility] Endocrinology - [facility] [address] [place], [place] [phone] Vincenzo Rawls MD 62 [facility] [address] [place] [address] 08/22/2024 15:30 EDT Telemedicine [facility] Nephrology - [facility] 1 [place], [place] [phone] Jose L Whitley MD 1 [facility], Level [address] [place] [phone] documented as of this encounter Visit Diagnoses Not on filedocumented in this encounter Care Teams Learning And Development Consultant Relationship Specialty Start Date End Date Mary Ann Goodman MD PCP - General 08/02/08 03/21/18 documented as of this encounter
--- OUTSIDE RECORDS SUMMARY | 2024-03-17 12:21 | XMS_ITS | Encounter Summary ---
Author Organization [facility] Address [address] [place] [address] Care Team Providers Care Hopper Attendant Name Role Phone Mary Ann Goodman MD Primary Care Provider Unavailable Encounter Details Date Type Department Care Team (Late st Contact Info) Description 01/06/2005 Before PRISM Converted Visit (Maple) [facility] - Maple conversion [address] [place] [address] Antonia Marquis MD [address] [place] [address] [place] [phone] Social History Tobacco Use Types Packs/Day Years Used Date Smoking Tobacco: Never Assessed Comments Unknown Sex and Gender Information Value Date Recorded Sex Assigned at Not on file Legal Sex Female 17:52 EST Gender Identity Female 10/11/2020 8:15 EDT Sexual Orientation Not on file documented as of this encounter Progress Notes * Antonia Marquis - 05/17[birth year]2009 1936 EST DIVISION OF PAIN MANAGEMENT PROGRESS/FOLLOWUP NOTE - 01/06/2005 This patient is a 49-year-old woman who was referred to our clinic by Mary Ann Goodman MD, for an outpatient consultation in reference to recommendations for chronic pain control. The patient was seenand examined with Dr. Briones and I agree with the assessment and plan. HISTORY OF PRESENT ILLNESS: Briefly, she is a 49-year-old woman who complains primarily of low back pain that she has had for several years. She does have some radiation into her legs but the radiation does stay primarily abovethe knees into the posterior thigh. She has not received any facet joint or radiofrequency ablationinjections in the past. She is unsure whether she had epidural steroid injections for treatment of her pain in the past. She does recall having an epidural forsurgery. Her surgery consisted of ileocolectomy and hysterectomy. She is currently using trazodone and ibuprofen 600 mg three times daily, Cymbalta and Tylenol No. 3, two tabs three times daily for her pain control. There is a significant note in the information that was sent to us for this consult revealing that she does have evidence ofsubstance abuse and has been seen in the [facility] in the past. PHYSICAL EXAMINATION: The patient is 4'11 and 3/4 tall, weighs 94 pounds. Blood pressure 114/65, pulse 104, respiratoryrate 16, and temperature is 35.5. She is alert and oriented times 3, somewhat subdued in conversation but appropriate. Motor, sensory and deep tendon reflexes are intact. IMPRESSION: Chronic axial low back pain secondary to degenerative changes. PLAN: We did discuss different treatment modalities with Ms. Collins. Primarily, we recommend followup with Dr. Laboy or Dr. Jennifer Latham for group or one-on-one consultation. As far as medication management, this is a difficult problem to treat. We did explain this to her. We do not recommend following through with any other narcotics at this time. She was unclear about which medications she has tried in the past in reference to muscle relaxantsversus antidepressants versus anticonvulsants. As far as interventional treatment, we did discuss possible medial branch block with radiofrequencyablation, of which she was not interested in at this time. This may be something that she can followup with us in the future after an evaluation with Dr. Jalloh. We do encourage continued physical therapy. If she does have any further questions or would like to see us in the future, we are available to her. Signed by Antonia Marquis MD 01/09/2005 15:01 Nyasia Frost MDTiffini [place], MD Antonia Marquis MD - Antonia Marquis MD P - MH Job ID: [id number] Document ID: [id number] cc: Mary Ann Goodman MD * Antonia Marquis - 05/17/2009 1934 EST DIVISION OF PAIN MANAGEMENT PROGRESS/FOLLOWUP NOTE - 01/06/2005 Attending: Antonia Marquis MD Dictating physician: Ko Briones MD PREPROCEDURE DIAGNOSIS: Lumbar spondylosis. POSTPROCEDURE DIAGNOSIS: Lumbar spondylosis. PROCEDURE: Outpatient evaluation. CHIEF COMPLAINT: Low back pain. INTERVAL HISTORY: Ms. Zaira Collins is a 49-year-old white female, who presents today in referral from Dr. Goodman regarding her low back pain. Ms. Collins has had approximately a decade of low backpain which begins in her lumbar spine and radiates in a band-like distribution across the lower back. It also radiates down her legs to an area above the knees encompassing all aspects of her bilateral lower extremities. Along with this, she has no neurological signs or symptoms. No weakness, no paresthesias. She finds that her pain is decreased by sitting with an upright posture and a bolstered support in her lower back. She has tried various things without relief including Tylenol with codeine, hydrocodone, and physical therapy. She has never had injection therapy or surgery. She is not hadchiropractic. In addition, for the past three months, she has had a history of a substernal/epigastric pain,which she says begins in the epigastric area and spreads superiorly into the substernal area. It also radiates in a band-like distribution towards her back along the inferior costal margin. She tells me that she has not had a cardiological workup. She hashad a gallbladder workup which was essentially negative and she is now scheduled for an upper GI series. PREVIOUS MEDICAL HISTORY: Renal tubular acidosis, renal cysts, Crohn's disease with malabsorption, nephrolithiasis. PREVIOUS SURGICAL HISTORY: Five bowel obstructions, ileostomy, hysterectomy. FAMILY HISTORY: Hypertension, diabetes mellitus. SOCIAL HISTORY: Smoker, occasional use of ethanol. Ms Mcfarlane tells me that she has never had a conflict with any physician regarding the use of prescription drugs and tells me that she has never had a problem with using medications inappropriately, running out of medications early, or altering any p rescriptions. ALLERGIES: No known drug allergies. MEDICATIONS: 1. Trazodone 50 mg p.o. bedtime. 2. Ibuprofen 600 mg p.o. daily to t.i.d. 3. Cyclobenzaprine 10 mg t.i.d. 4. Cymbalta 50 mg p.o. bedtime. 5. Tylenol with codeine #3 two tablets p.o. t.i.d. 6. Potassium. 7. Cyan. 8. 9. Diazepam. 10. Magnesium sulfate. 11. 12. Estrogel. 13. Nutritional supplements. REVIEW OF SYSTEMS: As far as Ms. Collins knows there are no problems with her heart, lungs, liver, or coagulation status. She has been in her usual state of health lately and has not had any recent signs or symptoms of infection. She tells me that she does suffer from some depression, but is otherwise psychologically well. She sees a psychiatrist now. PHYSICAL EXAMINATION: Ms Collins is a 4 foot 11 inch, 94 pound white female, who is alert and orientated x 3, somewhat cachetic and characterized by an appearance markedly older than her stated age. Her vital signs are 114/65, 104, 16, and 35.5. She is seen and examined in the presence of her daughter and and the daughters aunt. She is able to stand and ambulate with somedifficulty and a mildly antalgic stiffened gait and posture. She has full lumbar flexion without difficulty. Extensionis somewhat limited by pain. She also complains of pain when I have her laterally rotate [id number] and when I press directly down onher head. In palpating her lumbar spine, I am unable to find an area which is not tender. Her bilateral lower extremity exams are normal for strength, sensation, and deep tendon reflexes. Her bilateral straight leg raise is positive for pain in the ipsilateral back only at approximately 20 degrees. Her bilateral Allan test is positive also for pain in the ipsilateral back only. ASSESSMENT AND PLAN: A 49-year-old white female with lumbar spondylosis and significant psychiatricissues presents for outpatient evaluation. I have gone over the various modalities which we have used to treat this problem including medical management, psychiatric management with coping techniques, interventional management, surgery, and physical therapy. 1. I believe that in the long-run the process the most likely to benefit this patient is a referralto doctor Juanjo Laboy or Jennifer Latham, both of whom are psychiatrist who work in our practice. They focus on coping skills and behavioral techniques for dealing with painas well as with medical management. I suggested this to Ms. Collins, who initially seemed interested, however after discussion with her daughter she changed her mind. Her daughter told Ms. Collins you know that means they want you to see a shrink and they are saying that it is all in your head. As I explained to Ms. Collins, I certainly do not mean to minimize her problem, but I believe that therapy of the type offered by ty Laboy and Yeison may significantly improve her abilities to cope.I would also note that we generally do not allow small children in the examining rooms, but that Ms. Collins's daughter was quite insistent on being allowed to stay with her mother throughout the interview process.Clearly there is a heavy psychiatric/psychological overlay to Ms. Collins's condition and I believean exploration both of these factors and of the family dynamics may be of benefit. 2. Medical management. Dr. Goodman notes in her note that there have been several problems with this woman's use of prescription narcotics. It seems that she has been filling prescriptions from multiple providers and that on at least one occasion altered a prescription and has diverted narcotics toat least one other family member. Because of this, I believe this patient is a poor candidate for the use of narcotics, which are, in any case, unlikely to be of significant long-term benefit for this patient's condition. I would taper her off of the narcotics alternatively. If a decision is made to proceed with narcoticmanagement, I would limit them to the use of long-lasting narcotics with low potential for abuse and diversion, for example, methadone 5 mg p.o. t.i.d. would be a reasonable place to start. Other long-lasting narcotics such as morphine and OxyContin are more likely to be abused and/or diverted. In addition, OxyContin has a stimulating effect, which might be undesirable for th is patient. I think, unfortunately, that adjuvant medication such as Neurontin or other antiseizuremedications are unlikely to be of benefit in what is a predominately axial back pain. It is not clear to me, in fact, that there is any component of radiculopathy. 3. Interventional management. It sounds like this patient's pain maybe facetogenic. I have had a discussion about the possibility for performing medial branch blocks and/or radiofrequency ablation and the patient and her daughter are frankly uninterested in any interventional techniques. 4. Surgery. I see no indication for surgical evaluation in this patient, especially as she is unwilling to proceed with more conservative therapy, such as medial branch blocks and radiofrequency treatment. 5. Physical therapy. Despite the patient's concern that physical therapy makes her more sore, I think that along with psychiatric counseling, it is the intervention most likely to benefit her in the long-run. I strongly encouraged her to continue physical therapy. If land-based therapy is intolerable, a water- based therapy might be beneficial as a prelude to eventual land-therapy with any eye towards improving strength and flexibility of the lumbar spine. 6. Disposition. Unfortunately, we have nothing more to offer this patient at this time. If she changes her mind and desires to proceed with a program of interventional management please send her backto us and we will be happy to work through this with her. Signed by Antonia Marquis MD 01/09/2005 12:31 Nyasia Frost MD Antonia Marquis MD - Ko Briones MD P - JAMES Job ID: [id number] Document ID: [id number] cc: MD Mary Ann Nichols MD documented in this encounter Plan of Treatment Upcoming Encounters Date Type Department Care Team (Late st Contact Info) Description 04/07/2024 9:00 EST Office Visit [facility] Endocrinology - [facility] [address] [place] [address] Vincenzo Rawls MD [address] [facility] [address] [place] [address] 08/22/2024 15:30 EDT Telemedicine [facility] Nephrology - [address] [id number] Jose L Whitley MD [address] [place] [address], [address] [place] [phone] documented as of this encounter Visit Diagnoses Not on filedocumented in this encounter Care Teams Hopper Attendant Relationship Specialty Start Date End Date Mary Ann Goodman MD PCP - General 08/02/08 03/21/18 documented as of this encounter
--- OUTSIDE RECORDS SUMMARY | 2024-03-17 12:21 | XMS_ITS | Encounter Summary ---
Author Organization [facility] Address [address] [place] [address] Care Team Providers Care Court Specialist Name Role Phone Unavailable Primary Care Provider Unavailabl e Encounter Details Date Type Department Care Team (Latest Contact Info) Description 05/09/2008 9:55 EST - 05/09/2008 11:59 EST Hospital Encounter [facility] Perioperative Services- [facility] [address] [place] [address] Dusty Espinosa MD [address] [place] [address] Discharge Disposition: Home or Self Care Social [...] encounter OR Notes * OR Surgeon - Dusty Espinosa - 05/09/2008 0000 EST PROCEDURE REPORT PT TYPE: OPPROC SERVICE DATE: 05/09/2008 SURGEON: Dusty Espinosa MD, FACS SPOOLER RUBBER STRAND: Li Lujan MD PREOPERATIVE DIAGNOSIS Crohns disease, unhealed perineal wound, perineal abscess. POSTOPERATIVE DIAGNOSIS Crohns disease, unhealed perineal wound, perineal abscess, supralevator abscess. PROCEDURE Complex fistulotomy, drainage of supralevator abscess, curettage of perineal skin, subcutaneous tissue and muscle. ANESTHESIA Laryngeal mask airway. INDICATIONS Cynthia is a 52-year-old woman who has had multiple operations for Crohndisease. This has included a proctocolectomy with ileostomy at [facility]. Over the past two years, she has had pain and drainage from the vaginal area. She has been by Dr Goodman and Dr Valera. She was sent for my opinion in management. CT enterography and ileoscopy had been negative for Crohns disease. My feeling was that this was likely related to an unhealed perineal wound. She now comes for examination under anesthesia and definitive procedure. FINDINGS There was an external opening in the introitus and another one just outside the vagina on the rightthat connected. The primary pathology was that there was a chronic fibrotic space extending just above the levators that basicallycreated a chronic pelvic abscess. Essentially, the vaginal openings were simply siphoning off this chronic abscess. NARRATIVE The patient was brought to the operating room and placed on the operating table in the lithotomy position. After adequate LMA anesthesia was induced, she was prepped and draped in the usual sterile fashion. The anus was surgically absent; however, when I placed my finger through the back wall of the vagina, there was a lot of induration and mass effect. As such, I expected that there would be a chronic abscess cavity. We then placed a probe through the obvious external opening just outside the introitus on the right. This communicated with another hole just inside the introitus. This complex fistula tract was filleted open and curetted out. Using a hemostat, the dimple where the anus had been was opened. At thisjuncture, approximately 20mL of foul-smelling pus was evacuated. This abscess cavity was digitally broken up and extended above the levators. The skin opening was widened to be 5 cm so that it would be the same diameter as the depth of the abscess cavity. This abscess cavity extended just into the pelvis and above the levators. At this point, a curette was utilized to debride the skin, subcutaneous tissue and muscle around the area of the pelvic floor. This area was washed out with a liter of warm saline. The wound was packed. Marcaine was injected into the wound for postoperative analgesia. A saline-moistened Kerlix was placed into the depth of the abscess cavity. Blood loss for the case was approximately 100 mL. I was present and scrubbed throughout the entire procedure fromentry into the room until application of the dressing. The patient tolerated the procedure well and was brought to the recovery room in stable condition. Signed by Dusty Espinosa MD, FACS 05/10/2008 12:44 Dusty Espinosa MD, FACS [phone] D: - Dusty Espinosa MD, FACS A - [place] Job ID: [id number] Document ID: [id number] cc: MD Aileen Tucker MD Neil H Hyman, MD, FACS Mary Ann Goodman MD cc: MD Aileen Tucker MD Neil H Hyman, MD, FACS Mary Ann Goodman MD documented in this encounter Plan of Treatment Upcoming Encounters Date Type Department Care Team (Late st Contact Info) Description 04/07/2024 9:00 EST Office Visit [facility] Endocrinology - [address] [address] Vincenzo Rawls MD [address] [place] [address] [address] [place] [address] 08/22/2024 15:30 EDT Telemedicine [facility] Nephrology - [address] [id number] Jose L Whitley MD [address] [place] [address], [address] [place] [phone] documented as of this encounter Visit Diagnoses Not on filedocumented in this encounter
--- OUTSIDE RECORDS SUMMARY | 2024-03-17 12:21 | XMS_ITS | Encounter Summary ---
Author Organization [facility] Address [address] [place] [address] Care Team Providers Care Pipe Smoking Machine Offbearer Name Role Phone Mary Ann Goodman MD Primary Care Provider Unavailable Encounter Details Date Type Department Care Team (Late Contact Info) Description 11/07/1999 Results Only [facility] - Map conversion [address] [place] [address] Mary Ann Goodman MD Social History Tobacco [...] Description 04/07/2024 9:00 EST Office Visit [facility] Endocrinology - [facility] [address] [place], [place] [phone] iVncenzo Rawls MD [address] [facility] [address] [place] [address] 08/22/2024 15:30 EDT Telemedicine [facility] Nephrology - [facility] [address] [place], [place] [phone] Jose L Whitley MD [address] [facility], [address] [place] [phone] documented as of this encounter Procedures Procedure Name Priority Date/Time Associated Diagnosis Comments CYTOPATHOLOGY Routine 11/07/1999 0:00 EDT documented in this encounter Results * CYTOPATHOLOGY (11/07/1999 0:00 EDT) Pathology Report: CYTOPATHOLOGY REPORT Reports generated via electronic interface contain original data; however they are lacking the format of the original report. Caution should be taken when reading/interpreti ng unformatted reports. Name: ? ZAIRA COLLINS ? Accession #: ? [id number] : ? 1955 (Age: 44) ??F ?Collect Date: ? 11/07/1999 Location: ? [facility] ? Receive Date: ? 11/11/1999 Provider: ?MARY ANN CLARK CHACON Copy to: ? Specimen/Source: ?ThinPrep Pap Test, Endocervix Last Menstrual Period: ? 10/15/99 ? SPECIMEN ADEQUACY ? Satisfactory for evaluation. GENERAL CATEGORIZATION ? Within Normal Limits ? Document reviewed and electronically signed by: ? TORREY Nelson(ASCP)(IAC) ? Report Date: ??11/12/1999 13:24 End of Report TREMAYNE CARBAJAL 11/07/1999 11/11/1999 us Mary Ann Goodman MD PATHOLOGY ORDERABLES Fi nal Result Performing Organization Address City/State/[facility] Co de Phone Number [facility] [address] [place] [address] documented in this encounter Visit Diagnoses Not on filedocumented in this encounter Care Teams Pipe Smoking Machine Offbearer Relationship Specialty Start Date End Date Mary Ann Goodman MD PCP - General 08/02/08 03/21/18 documented as of this encounter
--- OUTSIDE RECORDS SUMMARY | 2024-03-17 12:21 | XMS_ITS | Encounter Summary ---
Author Organization [facility] Address [address] [place] [address] Care Team Providers Care Treatment Plant Operator Name Role Phone Mary Ann Goodman MD Primary Care Provider Unavailable Encounter Details Date Type Department Care Team (Late st Contact Info) Description 05/24/2008 Before PRISM Converted Visit (Maple) [facility] General Surgery - [address] [address] Dusty Espinosa MD [address] [place] [address] Social History Tobacco Use Types Packs/Day Years Used Date Smoking Tobacco: Never Assessed Comments Unknown Sex and Gender Information Value Date Recorded Sex Assigned at Not on file Legal Sex Female 17:52 EST Gender Identity Female 10/11/2020 8:15 EDT Sexual Orientation Not on file documented as of this encounter Progress Notes * Dusty Espinosa - 09/12/2008 0933 EDT DIVISION OF GENERAL SURGERY PROGRESS/FOLLOWUP NOTE - 05/24/2008 PROBLEM Hematuria. SUBJECTIVE Cynthia is now approximately 12 days after drainage of her chronic supralevator abscess. To review, at surgery, she had a chronically unhealed perineal wound with an abscess cavity that extended just above the pelvic floor. This area was curetted out. Pathology was reviewed. With the help of the visiting nurses, she has been changing the dressing daily. She has a long history of requirement for narcotic pain medication. She continues to use approximately six Percocet 7.5 mg per day. The real issue for today is hematuria. For the last several days, she has had some blood in her urine. She had called and we arranged for her to have a urinalysis at [facility]. This did reveal greater than 100 red blood cells. She had a renal colic CT that showed theusual bilateral medullary nephrocalcinosis; however, there was no hydronephrosis and no stones noted. She comes to review all of this. There have been no fevers or chills. There has been no dysuria or foul smell to the urine. There has been no urine draining from her perineum. OBJECTIVE She looks a bit pale. This is a baseline. Her hematocrit two weeks ago was 31%. The abdomen is benign. There is no flank tenderness. On inspection of the perineum, the wound looks very clean and has already started to granulate quite nicely. Pathology is reviewed. ASSESSMENT 1. Doing well from the standpoint of her unhealed perineal wound; however, I emphasized the slow and inconsistent healing of these wounds and the potential need for additional procedures such as a gracilis flap. 2. Hematuria, perhaps related to contiguous inflammation of the bladder. PLAN I should add that we checked her vital signs and she had no orthostatic changes. Her blood pressurewas 100/60, which is a baseline for her. We will check a CBC. Ifshtamika has had a significant drop in her hematocrit or if the hematuria is persistent, I would set her up to see one of our urologists, perhaps for cystoscopy. Addendum-Her HCT was higher than preop at 32% Signed by Dusty Espinosa MD, FACS 05/26/2008 11:59 Dusty Espinosa MD, FACS [phone] - Dusty Espinosa MD, FACS - CD Job ID: [id number] Doc ID: [id number] cc: MD Mary Ann Morrison MD documented in this encounter Plan of Treatment Upcoming Encounters Date Type Department Care Team (Late st Contact Info) Description 04/07/2024 9:00 EST Office Visit [facility] Endocrinology - [facility] [address] [place] [address] Vincenzo Rawls MD 62 [facility] [address] [place] [address] 08/22/2024 15:30 EDT Telemedicine [facility] Nephrology - [address] [id number] Jose L Whitley MD 1 [facility], Level [address] [place] [phone] documented as of this encounter Procedures Procedure Name Priority Date/Time Associated Diagnosis Comments COMPLETE BLOOD COUNT Routine 05/24/2008 9:54 EDT documented in this encounter Results * (ABNORMAL) HEMAGRAM (05/24/2008 9:54 EDT) WBC 8.30 4.0 - 12.4 K/cmm [facility] RBC 3.39(L) 3.86 - 5.04 M/cmm [facility] Hemoglobin 11.2(L) 11.6 - 15.2 gm/dl [facility] HCT 32.5(L) 34.9 - 44.4 % [facility] MCV 96 81 - 98 fl [facility] MCH 33.0 26.7 - 33.3 pg [facility] MCHC 34.5 32.1 - 35.9 gm/dl [facility] PLT 484(H) 141 - 320 K/cmm [facility] RDW-CV 14.6 11.7 - 14.6 % [facility] 05/24/2008 9:54 EDT 05/24/2008 9:56 EDT us Dusty Espinosa MD HEMATOLOGY & PF4 ORDERABLES Estela blanton Result Performing Organization Address City/State/[facility] Co de Phone Number [facility] [address] [address] documented in this encounter Visit Diagnoses Not on filedocumented in this encounter Care Teams Treatment Plant Operator Relationship Specialty Start Date End Date Mary Ann Goodman MD PCP - General 08/02/08 03/21/18 documented as of this encounter
--- OUTSIDE RECORDS SUMMARY | 2024-03-17 12:21 | XMS_ITS | Encounter Summary ---
Author Organization [facility] Address [address] [place] [address] Care Team Providers Care Visitor Services Technician Name Role Phone Mary Ann Goodman MD Primary Care Provider Unavailable Encounter Details Date Type Department Care Team (Late st Contact Info) Description 06/01/2008 Before PRISM Converted Visit (Maple) [facility] Urology - [address] [phone] Clau Luevano MD 111 [facility], [address] [place] [phone] Social History Tobacco Use Types Packs/Day Years [...] Info) Description 04/07/2024 9:00 EST Office Visit [facility] Endocrinology - [facility] [address] [place] [address] Vincenzo Rawls MD 62 [facility] [address] [place] [address] 08/22/2024 15:30 EDT Telemedicine [facility] Nephrology - [address] [place] [address] Jose L Whitley MD 1 [facility], [address] [place] [address] documented as of this encounter Procedures Procedure Name Priority Date/Time Associated Diagnosis Comments CYTOPATHOLOGY Routine 06/01/2008 0:00 EDT documented in this encounter Results * CYTOPATHOLOGY (06/01/2008 0:00 EDT) Pathology Report: CYTOPATHOLOGY REPORT ? Reports generated via electronic interface contain original data; ? however they are lacking the format of the original report. ? Caution should be taken when reading/interpreti ng unformatted reports. ? Name: ? ZAIRA COLLINS ? Accession #: ? [id number] ? : ? 1955 (Age: 52) ??F ?Collect Date: ? 06/01/2008 ? Location: ? [facility] ? Receive Date: ? 06/01/2008 ? Provider: ? CLAU WILY MD ? Copy to: ? Specimen Type: ? Urine, Voided ? Clinical History: ? Clinical diagnosis code: ??599.72 ? Gross Description: ? 40cc' s of cloudy red fluid were received and processed by selective ? cellular enhancement technique. ? CYTOLOGIC DIAGNOSIS: ? Urine, voided, cytologic evaluation: ? 1. ?No malignant cells identified. ? 2. ?Rare benign urothelial cells with a background of abundant blood. ? Document reviewed and electronically signed by: ? Zaira Stewart, MD ? Report Date: ??06/02/2008 14:37 ? By the signature above, the attending physician certifies that he/she has ? personally conducted a gross and/or microscopic examination of the described ? specimens and rendered or confirmed the above diagnosis. ? End of Report ? [facility] 06/01/2008 06/01/2008 12: 41 EDT us Clau Luevano MD PATHOLOGY ORDERABLES Estela l Result [facility] [address] [place] [address] documented in this encounter Visit Diagnoses Not on filedocumented in this encounter Care Teams Visitor Services Technician Relationship Specialty Start Date End Date Mary Ann Goodman MD PCP - General 08/02/08 03/21/18 documented as of this encounter
--- OUTSIDE RECORDS SUMMARY | 2024-03-17 12:21 | XMS_ITS | Encounter Summary ---
Author Organization [facility] Address [address] [place] [address] Care Team Providers Care Electromechanical Technician Name Role Phone Unavailable Primary Care Provider Unavailabl e Encounter Details Date Type Department Care Team (Latest Contact Info) Description 01/06/2005 12:31 EDT Hospital Encounter [facility] conversion [address] [place] [address] Antonia Marquis MD 62 [facility] [address] [place] [address] Discharge Disposition: Auto Discharge Social History Tobacco [...] EST Office Visit [facility] Endocrinology - [facility] [address] [place] [address] Vincenzo Rawls MD 62 [facility] [address] [place] [address] 08/22/2024 15:30 EDT Telemedicine [facility] Nephrology - [address] [address] Jose L Whitley MD 1 [facility], [address] [place] [address] documented as of this encounter Visit Diagnoses Not on filedocumented in this encounter
--- OUTSIDE RECORDS SUMMARY | 2024-03-17 12:21 | XMS_ITS | Encounter Summary ---
Author Organization Health system Address [address] [place] [address] Care Team Providers Care Air Pollution Inspector Name Role Phone Unavailable Primary Care Provider Unavailabl e Encounter Details Date Type Department Care Team (Late st Contact Info) Description 05/24/2008 8:42 EDT Hospital Encounter [facility] [address] [place] [address] Dusty Espinosa MD [address] [place] [address] Social History Tobacco Use Types [...] Office Visit [facility] Endocrinology - [facility] [address] [place] [address] Vincenzo Rawls MD 62 [facility] [address] [place] [address] 08/22/2024 15:30 EDT Telemedicine [facility] Nephrology - [facility] [address] [place], [place] [address] Jose L Whitley MD 1 [facility], [address] [place] [phone] documented as of this encounter Visit Diagnoses Not on filedocumented in this encounter
--- OUTSIDE RECORDS SUMMARY | 2024-03-17 12:21 | XMS_ITS | Encounter Summary ---
Author Organization [facility] Address [address] [place] [address] Care Team Providers Care Exchange Administrator Name Role Phone Mary Ann Goodman MD Primary Care Provider Unavailable Encounter Details Date Type Department Care Team (Late Contact Info) Description 12/07/2002 Results Only [facility] - Map conversion [address] [place] [address] Mary Ann Goodman MD Social History Tobacco [...] Office Visit [facility] Endocrinology - [facility] [address] [place], [place] [phone] Vincenzo Rawls MD 62 [facility] [address] [place] [address] 08/22/2024 15:30 EDT Telemedicine [facility] Nephrology - [facility] [address] [place], [place] [address] Jose L Whitley MD 1 [facility], [address] [place] [phone] documented as of this encounter Procedures Procedure Name Priority Date/Time Associated Diagnosis Comments CYTOPATHOLOGY Routine 12/07/2002 0:00 EDT documented in this encounter Results * CYTOPATHOLOGY (12/07/2002 0:00 EDT) Pathology Report: CYTOPATHOLOGY REPORT Reports generated via electronic interface contain original data; however they are lacking the format of the original report. Caution should be taken when reading/interpreti ng unformatted reports. Name: ? ZAIRA COLLINS ? Accession #: ? [id number] : ? 1955 (Age: 47) ??F ?Collect Date: ? 12/07/2002 Location: ? [facility] ? Receive Date: ? 12/09/2002 Provider: ?MARY ANN CLARK CHACON Copy to: ? Specimen/Source: ?ThinPrep Pap Test, Cervix/Endocervix Last Menstrual Period: ? 11/28/02 ? SPECIMEN ADEQUACY ? Satisfactory for Evaluation - transformation zone component present GENERAL CATEGORIZATION ? Negative for Intraepithelial Lesion or Malignancy ? Document reviewed and electronically signed by: ? TORREY Flaherty(ASCP) ? Report Date: ??12/14/2002 13:02 End of Report [facility] 12/07/2002 12/09/2002 us Mary Ann Goodman MD PATHOLOGY ORDERABLES Fi nal Result Performing Organization Address City/State/[facility] Co de Phone Number [facility] [address] [place] [address] documented in this encounter Visit Diagnoses Not on filedocumented in this encounter Care Teams Exchange Administrator Relationship Specialty Start Date End Date Mary Ann Goodman MD PCP - General 08/02/08 03/21/18 documented as of this encounter
--- OUTSIDE RECORDS SUMMARY | 2024-03-17 12:21 | XMS_ITS | Encounter Summary ---
Author Organization [facility] Address [address] [place] [address] Care Team Providers Care Art Class Model Name Role Phone Mary Ann Goodman MD Primary Care Provider Unavailable Encounter Details Date Type Department Care Team (Late st Contact Info) Description 06/01/2008 Before PRISM Converted Visit (Maple) [facility] Urology - [address] [phone] Cheikh Luevano MD 111 [facility], [address] [place] [phone] Social History Tobacco Use Types Packs/Day Years [...] Visit [facility] End[facility]inology - [facility] [address] [place] [address] Vincenzo Rawls MD 62 [facility] [address] [place] [address] 08/22/2024 15:30 EDT Telemedicine [facility] Nephrology - [address] [place], [place] [address] Jose L Whitley MD 1 [facility], [address] [place] [address] documented as of this encounter Procedures Procedure Name Priority Date/Time Associated Diagnosis Comments BACTERIAL CULTURE, URINE Routine 06/01/2008 11:47 EDT documented in this encounter Results * BACTERIAL CULTURE, URINE (06/01/2008 11:47 EDT) Specimen Description Urine [facility] Result Less than 10,000 CFU/ml Mixed gram positive growth [facility] Report Status Final 06/02/2008 [facility] 06/01/2008 11:4 7 EDT 06/01/2008 12:51 EDT us Cheikh Luevano MD MICROBIOLOGY - GENERAL OR DERABLES Final Result [facility] [address] [place] [address] documented in this encounter Visit Diagnoses Not on filedocumented in this encounter Care Teams Art Class Model Relationship Specialty Start Date End Date Mary Ann Goodman MD PCP - General 08/02/08 03/21/18 documented as of this encounter
--- OUTSIDE RECORDS SUMMARY | 2024-03-17 12:21 | XMS_ITS | Encounter Summary ---
Author Organization [facility] Address [address] [place] [address] Care Team Providers Care Sound Equipment Mechanic Name Role Phone Mary Ann Goodman MD Primary Care Provider Unavailable Encounter Details Date Type Department Care Team (Late Contact Info) Description 11/24/2001 Results Only [facility] - Map conversion [address] [place] [address] Mary Ann Goodman MD Social History Tobacco [...] Info) Description 04/07/2024 9:00 EST Office Visit [facility] Endocrinology - [facility] [address] [place], [place] [phone] Vincenzo Rawls MD 62 [facility] [address] [place] [address] 08/22/2024 15:30 EDT Telemedicine [facility] Nephrology - [facility] 1 [place], [place] [address] Jose L Whitley MD 1 [facility], [address] [place] [phone] documented as of this encounter Procedures Procedure Name Priority Date/Time Associated Diagnosis Comments CYTOPATHOLOGY Routine 11/24/2001 0:00 EDT documented in this encounter Results * CYTOPATHOLOGY (11/24/2001 0:00 EDT) Pathology Report: CYTOPATHOLOGY REPORT Reports generated via electronic interface contain original data; however they are lacking the format of the original report. Caution should be taken when reading/interpreti ng unformatted reports. Name: ? ZAIRA COLLINS ? Accession #: ? [id number] : ? 1955 (Age: 46) ??F ?Collect Date: ? 11/24/2001 Location: ? [facility] ? Receive Date: ? 11/26/2001 Provider: ?MARY ANN CLARK CHACON Copy to: ? Specimen/Source: ?ThinPrep Pap Test, Cervix/Endocervix Last Menstrual Period: ? 11/16/01 ? SPECIMEN ADEQUACY ? Satisfactory for Evaluation - transformation zone component absent GENERAL CATEGORIZATION ? Negative for Intraepithelial Lesion or Malignancy ? Document reviewed and electronically signed by: ? TORREY Haley(ASCP) ? Report Date: ??11/29/2001 10:11 End of Report [facility] CARBAJAL 11/24/2001 11/26/2001 us Mary Ann Goodman MD PATHOLOGY ORDERABLES Fi nal Result Performing Organization Address City/State/[facility] Co de Phone Number [facility] [address] [place] [address] documented in this encounter Visit Diagnoses Not on filedocumented in this encounter Care Teams Sound Equipment Mechanic Relationship Specialty Start Date End Date Mary Ann Goodman MD PCP - General 08/02/08 03/21/18 documented as of this encounter
--- OUTSIDE RECORDS SUMMARY | 2024-03-17 12:21 | XMS_ITS | Encounter Summary ---
Author Organization [facility] Address [address] [place] [address] Care Team Providers Care Lace Finisher Name Role Phone Unavailable Primary Care Provider Unavailabl e Encounter Details Date Type Department Care Team (Latest Contact Info) Description 03/27/2008 20:45 EST Hospital Encounter [facility] - Other [address] [place] [address] Aileen Valera MD 2 [facility], [address] [place] [address] Discharge Disposition: Home or Self [...] EST Office Visit [facility] Endocrinology - [facility] [address] [place] [address] Vincenzo Rawls MD 62 [facility] [address] [place] [address] 08/22/2024 15:30 EDT Telemedicine [facility] Nephrology - [address] [phone] Jose L Whitley MD 1 [facility], [address] [place] [address] documented as of this encounter Visit Diagnoses Not on filedocumented in this encounter
[2024-03-17 16:07] LABS: Anion Gap 7.4 mmol/L (3-11); BUN 29 mg/dL (7-18); CREATININE 1.6 mg/dL (0.55-1.02); Chloride 104 mmol/L (98-107); Estimated GFR 35.13 (mL/min/1.73m2); Glucose 94 mg/dL (74-106); Potassium 3.8 mmol/L (3.5-5.1); Sodium 144 mmol/L (136-145)
[2024-03-17 16:55] LABS: CO2 30.4 mmol/L (21.0-32.0)
== END 2024-03-17 11:59 | disposition home or self-care (01) ==
LOC: NCHCN 11:58
PROVIDERS: PCP Registered Nurse; Visit Provider Family Medicine
DX: N18.4 Chronic kidney disease, stage 4 (severe) (principal)
CPT/HCPCS: 80048

== ENCOUNTER 2024-05-25 18:21 | Outpatient (REF) | payer MEDICARE, MEDICAID, SELFPAY ==
[2024-05-25 22:04] LABS: ALT 24 U/L (14-59); AST 26 U/L (15-37); Albumin 3.6 g/dL (3.4-5.0); Alkaline Phosphatase 164 U/L (46-116); Anion Gap 2.2 mmol/L (3-11); BUN 26 mg/dL (7-18); Bilirubin, Total 0.3 mg/dL (0.2-1.0); CO2 33.8 mmol/L (21.0-32.0); CREATININE 1.7 mg/dL (0.55-1.02); Calcium 9.6 mg/dL (8.5-10.1); Chloride 107 mmol/L (98-107); Estimated GFR 32.66 (mL/min/1.73m2); Glucose 81 mg/dL (74-106); PHOSPHORUS 4.2 mg/dL (2.6-4.7); Potassium 5.1 mmol/L (3.5-5.1); Sodium 143 mmol/L (136-145); Total Protein 8.1 g/dL (6.4-8.2)
[2024-05-26 17:51] LABS: Parathyroid Hormone,Intact 189.3 pg/mL (19.0-88.0)
== END 2024-05-25 18:22 | disposition home or self-care (01) ==
LOC: LBN 18:21
PROVIDERS: PCP Registered Nurse; Visit Provider Internal Medicine Nephrology
DX: N18.32 Chronic kidney disease, stage 3b (principal)
CPT/HCPCS: 80053; 83970; 84100

== ENCOUNTER 2025-02-02 20:45 | Outpatient (REF) | payer MEDICARE, MEDICAID, SELFPAY ==
[2025-02-04 12:47] LABS: Bacterial Vaginosis (BV) Positive (Negative); Candida glabrata Negative (Negative); Candida species group Negative (Negative)
== END 2025-02-02 20:46 | disposition home or self-care (01) ==
LOC: NCHCN 20:45
PROVIDERS: PCP Registered Nurse; Visit Provider Family Medicine
DX: N89.8 Other specified noninflammatory disorders of vagina (principal)
CPT/HCPCS: 81513; 87481; 87661